=== PATIENT | female | born 1950 | race Caucasian/White ===

== ENCOUNTER 2024-01-16 13:15 | Outpatient (OUT) | payer MEDICARE, OTHER, SELFPAY ==
--- NOTE | 2024-01-16 | XR_ITS ---
[address] [address] Patient Name: CHLOE PICKENS MRN: [id number] date: 1950 Sex: F Assigned Patient Location: [facility] Current Patient Location: Accession/Order Number: [id number] Exam Date: 01/16/2024 13:45 Report Date: 01/18/2024 05:35 At the request of: ROULA ZARATE Procedure: XR knee RT 4V PROCEDURE: XR knee RT 4V HISTORY: Acute pain in right knee M25.561 COMPARISON: None. FINDINGS: BONES:Total knee replacement without evidence of hardware fracture or evidence of loosening. No bone fracture or dislocation. SOFT TISSUES:No visible soft tissue swelling. EFFUSION:None visible. OTHER: Negative. XR/XR knee RT 4V IMPRESSION: 1. Right knee replacement without evidence of hardware failure. 2. No acute bone abnormality. Electronically authenticated by: PAGE BLOOM Date: 01/18/2024 05:35
== END 2024-01-16 13:16 | disposition home or self-care (01) ==
LOC: RAD 13:22
PROVIDERS: PCP Internal Medicine; Visit Provider Physician Assistant
DX: M25.561 Pain in right knee (principal); Z96.651 Presence of right artificial knee joint
CPT/HCPCS: 73564

== ENCOUNTER 2024-05-31 16:11 | Inpatient (IN) | payer MEDICARE, OTHER, SELFPAY ==
[2024-05-31] VITALS (21 sets, daily range): BP systolic 105–148; BP diastolic 57–83; PULSE 90–124; TEMP 37.2–38.5; O2SAT 91–94; BMI 49.9; BMI 49.8
--- NOTE | 2024-05-31 16:21 | ECG_ITS ---
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 Baseline artifact present 9150 abnormal ECG Electronically Signed On 05-31-2024 20:23:33 EST by OSCAR PASTRANA
--- NOTE | 2024-05-31 16:23 | ED.GENADUL1 ---
HPI HPI - General Adult General Chief complaint: Weakness Stated complaint: WEAKNESS Time Seen by Provider: 05/31/24 16:22 Source: patient and EMR Mode of arrival: ambulance History of Present Illness HPI narrative: Patient is a 73-year-old female who presents to the emergency department for evaluation of difficulty urinating and not being able to stand up off the toilet. She called 911 because she was sitting on the toilet trying to urinate but was unable to get herself up. Patient was found by EMS to have a fever. At time of my initial evaluation, the patient is fixated on the staff trying to help her urinate. She denies chest pain, shortness of breath, falls or injuries. She has not had any other recent illness. She denies abdominal pain, she reports pressure and a sensation of needing to urinate. Related Data Home Medications ?Medication ?Instructions ?Recorded ?Confirmed allopurinol 100 mg tablet 100 mg PO DAILY 05/31/24 05/31/24 apixaban 5 mg tablet (Eliquis) 5 mg PO DAILY 05/31/24 05/31/24 biotin 2,500 mcg capsule 6,000 mcg PO Q12H 05/31/24 05/31/24 dulaglutide 1.5 mg/0.5 mL 1.5 mg subcut QWEEK 05/31/24 05/31/24 subcutaneous pen injector ([employer]) fenofibrate nanocrystallized 145 145 mg PO Q12H 05/31/24 05/31/24 mg tablet finerenone 20 mg tablet (Kerendia) 20 mg PO DAILY 05/31/24 05/31/24 fluticasone furoate 200 1 inh inhalation DAILY 05/31/24 05/31/24 mcg-vilanterol 25 mcg/dose inhalation powder (Breo Ellipta) furosemide 20 mg tablet 40 mg PO DAILY 05/31/24 05/31/24 insulin aspart U-100 100 unit/mL 50 unit subcut Q12H 05/31/24 05/31/24 (3 mL) subcutaneous pen (Novolog FlexPen U-100 Insulin aspart) insulin degludec 200 unit/mL (3 200 unit subcut Q12H 05/31/24 05/31/24 mL) subcutaneous pen (Tresiba FlexTouch U-200 insulin) loperamide 2 mg capsule 2 mg PO Q8H PRN loose stool 05/31/24 05/31/24 losartan 100 mg tablet 100 mg PO DAILY 05/31/24 05/31/24 omeprazole 20 mg capsule,delayed 20 mg PO DAILY 05/31/24 05/31/24 release semaglutide 1 mg/dose (4 mg/3 mL) 1 mg subcut .weekly 05/31/24 05/31/24 subcutaneous pen injector (Ozempic) topiramate 50 mg tablet 50 mg PO Q12H 05/31/24 05/31/24 tramadol 50 mg tablet 50 mg PO Q6H PRN pain 05/31/24 05/31/24 verapamil 240 mg 24 hr 240 mg PO DAILY 05/31/24 05/31/24 capsule,extended release vit C 250 mg-vit E 90 mg-zinc 40 1 tab PO BID 05/31/24 05/31/24 mg-copper 1 ib-[id number] capsule (PreserVision AREDS-2) Allergies Allergy/AdvReac Type Severity Reaction Status Date / Time doxycycline AdvReac Severe Nausea Verified 05/31/24 17:26 Opioid HPI Opioid Management Most Recent Opioid Data: No Data to Display Review of Systems ROS Constitutional Reports: fever; Denies: chills Ears, nose, mouth, and throat Denies: throat pain or nasal congestion Cardiovascular Denies: chest pain Respiratory Denies: shortness of breath or cough Gastrointestinal Denies: abdominal pain, nausea or vomiting Genitourinary Reports: urinary urgency Musculoskeletal Denies: back pain Integumentary/Breast Denies: rash Neurological Reports: weakness in extremities Hematologic/Lymphatic Denies: easy bruising or easy bleeding PFSH PFSH Social History Little interest or pleasure in doing things: not at all Feeling down, depressed, or hopeless: not at all Exam Narrative Exam Narrative: Gen.: Awake, alert, in no distress, morbidly obese female Head: Normocephalic, atraumatic ENT: Moist mucous membranes Respiratory: No respiratory distress, lungs clear bilaterally Cardio: Regular rate and rhythm Gastrointestinal: Abdomen is soft, nondistended and nontender to palpation Extremities: Moves extremities equally, no injuries noted Psych: Normal mood and affect Neuro: No focal neuro deficit Skin: Warm, dry, intact Constitutional Vital Signs, click to edit/add: Last Vital Signs Temp 100.4 F 05/31/24 16:51 Pulse 118 H 05/31/24 17:48 Resp 25 H 05/31/24 17:48 BP 148/57 H 05/31/24 17:48 Pulse Ox 93 L 05/31/24 17:48 O2 Del Method Room Air 05/31/24 16:51 Course Vital Signs Vital signs: Vital Signs Pulse Rate 116 H 05/31/24 16:29 Respiratory Rate 51 H 05/31/24 16:29 Temperature 100.4 F 05/31/24 16:51 Pulse Rate 118 H 05/31/24 17:48 Respiratory Rate 25 H 05/31/24 17:48 Blood Pressure 148/57 H 05/31/24 17:48 Pulse Oximetry 93 L 05/31/24 17:48 Oxygen Delivery Method Room Air 05/31/24 16:51 Medical Decision Making MDM Narrative Medical decision making narrative: Patient found to be tachycardic on arrival with fever. She was treated with Tylenol orally which she tolerated. Bladder scan was obtained initially at time of presentation to the ER showing 250 mL, Askew catheter was placed with over 450 mL drained. Urine specimen with no evidence of UTI. Patient is found to have bandemia, elevated lactic acid. Blood cultures are pending. She was given IV fluids and IV Rocephin. CT of the brain, CT of the abdomen and pelvis and chest x-ray reviewed by the radiologist with no evidence of acute process. At this time, patient meets SIRS criteria with no discernible source of infection. She is clinically much improved after IV fluids and Tylenol for fever. Reevaluated by attending physician and we will admit for generalized weakness, fever SHARED APC VISIT, PHYSICIAN ATTESTATION: [id number] I performed a substantive part of the MDM during the patient?s E/M visit. I personally evaluated and examined the patient. I personally made or approved the documented management plan and acknowledge its risk of complications. Medical Records Medical records reviewed: Yes I reviewed the patient's medical records Lab Data Lab results reviewed: Yes I reviewed the patient's lab results Labs: Lab Results 05/31/24 05/31/24 05/31/24 Range/Units 16:30 16:42 16:44 WBC 10.2 (4.0-11.0) 10^3/uL RBC 5.08 (4.20-5.40) 10^6/uL Hgb 15.0 (12.0-16.0) g/dL Hct 46.7 (36.0-48.0) % MCV 91.9 (81.0-99.0) fL MCH 29.5 (26.7-34.0) pg MCHC 32.1 (29.9-35.2) g/dL RDW 14.8 (11.0-15.0) % Plt Count 342 (150-450) 10^3/uL MPV 9.8 (9.5-13.5) fL Seg Neuts % (Manual) 82.0 H (43.0-75.0) Band Neutrophils % 11.0 H (0-5) % Lymphocytes % (Manual) 5.0 L (20.5-60.0) % Monocytes % (Manual) 1.0 L (1.7-12.0) % Eosinophils % (Manual) 1.0 (0.9-7.0) % Basophils % (Manual) 0.0 L (0.2-2.0) % Neutrophils # (Manual) 8.36 H (1.4-6.5) 10^3/uL Band Neutrophils # 1.1 H (0.0-0.3) 10^3/uL Lymphocytes # (Manual) 0.51 L (1.20-3.80) 10^3/uL Monocytes # (Manual) 0.10 L (0.30-0.80) 10^3/uL Eosinophils # (Manual) 0.10 (0.00-0.70) 10^3/uL Basophils # (Manual) 0.00 (0.00-0.10) 10^3/uL PT 10.8 (9.0-11.6) sec INR 1.02 VBG pH 7.296 L (7.330-7.430) VBG pCO2 42.0 (40.0-52.0) mmHg Sodium 137 (136-145) mmol/L Potassium 3.6 (3.5-5.1) mmol/L Chloride 100 (98-107) mmol/L Carbon Dioxide 23.6 (21.0-32.0) mmol/L Anion Gap 17.0 BUN 30.0 H (7.0-18.0) mg/dL Creatinine 1.85 H (0.55-1.02) mg/dL Est GFR ( Amer) 32 L (>=60 mL/min/1.73m^2) Est GFR (Non-Af Amer) 27 L (>=60 mL/min/1.73m^2) BUN/Creatinine Ratio 16.2 Glucose 319 H (74-106) mg/dL Lactate 5.9 H* (0.4-2.0) mmol/L Calcium 9.2 (8.5-10.1) mg/dL Total Bilirubin 0.5 (0.2-1.0) mg/dL AST 19 (15-37) U/L ALT 23 (14-59) U/L Alkaline Phosphatase 60 (46-116) U/L Troponin I High Sens 25.0 (4.0-51.3) pg/mL NT-Pro-B Natriuret Pep 93.0 (<=900.0) pg/mL Total Protein 7.6 (6.4-8.2) g/dL Albumin 3.4 (3.4-5.0) g/dL Globulin 4.2 g/dL Albumin/Globulin Ratio 0.8 TSH 1.150 (0.358-3.740) uIU/mL Urine Color Yellow (YELLOW) Urine Clarity Clear (CLEAR) Urine pH 6.0 (5.0-9.0) Ur Specific [place] 1.015 (1.005-1.025) Urine Protein Negative (NEG/TRACE) mg/dL Urine Glucose (UA) 100 A (NEGATIVE) mg/dL Urine Ketones Negative (NEGATIVE) mg/dL Urine Occult Blood Negative (NEGATIVE) Urine Nitrite Negative (NEGATIVE) Urine Bilirubin Negative (NEGATIVE) Urine Urobilinogen 1.0 (0.2-1.0) EU/dL Ur Leukocyte Esterase Negative (NEGATIVE) Urine RBC 0-2 (0-2) #/HPF Urine WBC 0-2 A (NONE SEEN) #/HPF Ur Squamous Epith Cells Rare (NONE/RARE) #/LPF Urine Crystals None seen (None Seen) #/HPF Urine Bacteria None seen (NONE SEEN) #/HPF Urine Casts None seen (NONE SEEN) #/LPF Urine Mucus None seen (NONE SEEN) Ur Culture Indicated? No Influenza Type A Ag Negative Influenza Type B Ag Negative SARS-CoV-2 Ag (CV2AG) Negative (NEGATIVE) 05/31/24 Range/Units 18:29 WBC (4.0-11.0) 10^3/uL RBC (4.20-5.40) 10^6/uL Hgb (12.0-16.0) g/dL Hct (36.0-48.0) % MCV (81.0-99.0) fL MCH (26.7-34.0) pg MCHC (29.9-35.2) g/dL RDW (11.0-15.0) % Plt Count (150-450) 10^3/uL MPV (9.5-13.5) fL Seg Neuts % (Manual) (43.0-75.0) Band Neutrophils % (0-5) % Lymphocytes % (Manual) (20.5-60.0) % Monocytes % (Manual) (1.7-12.0) % Eosinophils % (Manual) (0.9-7.0) % Basophils % (Manual) (0.2-2.0) % Neutrophils # (Manual) (1.4-6.5) 10^3/uL Band Neutrophils # (0.0-0.3) 10^3/uL Lymphocytes # (Manual) (1.20-3.80) 10^3/uL Monocytes # (Manual) (0.30-0.80) 10^3/uL Eosinophils # (Manual) (0.00-0.70) 10^3/uL Basophils # (Manual) (0.00-0.10) 10^3/uL PT (9.0-11.6) sec INR VBG pH (7.330-7.430) VBG pCO2 (40.0-52.0) mmHg Sodium (136-145) mmol/L Potassium (3.5-5.1) mmol/L Chloride (98-107) mmol/L Carbon Dioxide (21.0-32.0) mmol/L Anion Gap BUN (7.0-18.0) mg/dL Creatinine (0.55-1.02) mg/dL Est GFR ( Amer) (>=60 mL/min/1.73m^2) Est GFR (Non-Af Amer) (>=60 mL/min/1.73m^2) BUN/Creatinine Ratio Glucose (74-106) mg/dL Lactate 3.6 H* (0.4-2.0) mmol/L Calcium (8.5-10.1) mg/dL Total Bilirubin (0.2-1.0) mg/dL AST (15-37) U/L ALT (14-59) U/L Alkaline Phosphatase (46-116) U/L Troponin I High Sens (4.0-51.3) pg/mL NT-Pro-B Natriuret Pep (<=900.0) pg/mL Total Protein (6.4-8.2) g/dL Albumin (3.4-5.0) g/dL Globulin g/dL Albumin/Globulin Ratio TSH (0.358-3.740) uIU/mL Urine Color (YELLOW) Urine Clarity (CLEAR) Urine pH (5.0-9.0) Ur Specific [place] (1.005-1.025) Urine Protein (NEG/TRACE) mg/dL Urine Glucose (UA) (NEGATIVE) mg/dL Urine Ketones (NEGATIVE) mg/dL Urine Occult Blood (NEGATIVE) Urine Nitrite (NEGATIVE) Urine Bilirubin (NEGATIVE) Urine Urobilinogen (0.2-1.0) EU/dL Ur Leukocyte Esterase (NEGATIVE) Urine RBC (0-2) #/HPF Urine WBC (NONE SEEN) #/HPF Ur Squamous Epith Cells (NONE/RARE) #/LPF Urine Crystals (None Seen) #/HPF Urine Bacteria (NONE SEEN) #/HPF Urine Casts (NONE SEEN) #/LPF Urine Mucus (NONE SEEN) Ur Culture Indicated? Influenza Type A Ag Influenza Type B Ag SARS-CoV-2 Ag (CV2AG) (NEGATIVE) Imaging Data Chest x-ray: Attestation: I have reviewed the pertinent imaging results. Radiologist's impression: ITS Impressions Abdomen/Pelvis CT 05/31/24 17:47 Impression: 1. No evidence of acute abdominal or pelvic process. 2. Left renal nonobstructive stones measuring up to 1 cm. No hydronephrosis. 3. Askew catheter in the bladder. Air is seen in the bladder, most likely iatrogenic. Electronically authenticated by: KIAN PETERS Date: 05/31/2024 19:22 Chest X-Ray 05/31/24 17:47 IMPRESSION: Low lung volumes with pulmonary vascular congestion/edema. Possible small bilateral pleural effusions. Electronically authenticated by: GURINDER PRITCHETT Date: 05/31/2024 18:[address] 05/31/24 17:47 IMPRESSION: 1. No acute intracranial process. 2. 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 Electronically authenticated by: GURINDER PRITCHETT Date: 05/31/2024 18:34 ECG Data Attestation: I personally reviewed and interpreted this ECG as follows: (Sinus tachycardia at a rate of 113, occasional PVCs, significant artifact noted due to the patient's tremors. No obvious acute ST elevation EKG reviewed by attending physician) Discharge Plan Discharge Chief Complaint: Weakness Patient Disposition: Admitted as Observation Time of Disposition Decision: 19:36 Prescriptions / Home Meds: No Action allopurinol 100 mg tablet 100 mg PO DAILY Kerendia 20 mg tablet 20 mg PO DAILY losartan 100 mg tablet 100 mg PO DAILY omeprazole 20 mg capsule,delayed release(DR/EC) 20 mg PO DAILY Ozempic 1 mg/dose (4 mg/3 mL) pen injector 1 mg SUBCUT .weekly topiramate 50 mg tablet 50 mg PO Q12H tramadol 50 mg tablet 50 mg PO Q6H PRN (Reason: pain) verapamil 240 mg capsule,ext rel. pellets 24 hr 240 mg PO DAILY Eliquis 5 mg tablet 5 mg PO DAILY insulin aspart U-100 [Novolog FlexPen U-100 Insulin] 100 unit/mL (3 mL) insulin pen 50 unit SUBCUT Q12H insulin degludec [Tresiba FlexTouch U-200] 200 unit/mL (3 mL) insulin pen 200 unit SUBCUT Q12H fenofibrate nanocrystallized 145 mg tablet 145 mg PO Q12H furosemide 20 mg tablet 40 mg PO DAILY loperamide 2 mg capsule 2 mg PO Q8H PRN (Reason: loose stool) biotin 2,500 mcg capsule 6,000 mcg PO Q12H fluticasone furoate-vilanterol [Breo Ellipta] 200-25 mcg/dose blister with device 1 inh inhalation DAILY PreserVision AREDS-2 250-90-40-1 mg capsule 1 tab PO BID Trulicity 1.5 mg/0.5 mL pen injector 1.5 mg subcut QWEEK Print Language: Filipino Referrals: IVETH OH [Primary Care Provider] - 1 week
--- NOTE | 2024-05-31 16:47 | ECG_ITS ---
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
[2024-05-31 16:52] LABS: Hematocrit 46.7 % (36.0-48.0); Mean Corpuscular HGB Conc 32.1 g/dL (29.9-35.2); Mean Corpuscular Hemoglobin 29.5 pg (26.7-34.0); Mean Corpuscular Volume 91.9 fL (81.0-99.0); Mean Platelet Volume 9.8 fL (9.5-13.5); Platelet Count 342 10^3/uL (150-450); Red Blood Count 5.08 10^6/uL (4.20-5.40); Red Cell Distribution Width 14.8 % (11.0-15.0); White Blood Count 10.2 10^3/uL (4.0-11.0); pH VBG 7.296 (7.330-7.430)
[2024-05-31 16:55] LABS: Bilirubin Urine NEGATIVE (NEGATIVE); Blood Urine NEGATIVE (NEGATIVE); Clarity Urine CLEAR (CLEAR); Color Urine YELLOW (YELLOW); Glucose Urine UA 100 mg/dL (NEGATIVE); Ketones Urine NEGATIVE (NEGATIVE); Leukocyte Esterase Urine NEGATIVE (NEGATIVE); Nitrite Urine NEGATIVE (NEGATIVE); Protein Urine NEGATIVE (NEG/TRACE); Specific Gravity Urine 1.015 (1.005-1.025)
[2024-05-31 17:01] LABS: Bacteria Urine NONE SEEN #/HPF (NONE SEEN); Cast Seen? NONE SEEN #/LPF (NONE SEEN); Crystals Seen? None Seen #/HPF (None Seen); Mucus Urine NONE SEEN (NONE SEEN); RBC Urine 0-2 #/HPF (0-2); Squamous Epithelial Cell Urine RARE #/LPF (NONE/RARE); Urine Culture Indicated NO; WBC Urine 0-2 #/HPF (NONE SEEN)
[2024-05-31 17:06] LABS: INR 1.02; Prothrombin Time 10.8 sec (9.0-11.6)
[2024-05-31] MEDS: ACETAMINOPHEN 500 MG TABLET 1000 MG PO (17:06)
[2024-05-31] MEDS: 0.9 % SODIUM CHLORIDE 1,000 ML 1000 ML IV (17:06)
[2024-05-31 17:07] LABS: Influenza Virus A Antigen Negative; Influenza Virus B Antigen Negative; Internal Control Within Normal Limits
[2024-05-31 17:08] LABS: Internal Control Within Normal Limits; SARS-CoV-2 Ag NEGATIVE (NEGATIVE)
[2024-05-31 17:08] LABS: Alanine Aminotransferase 23 U/L (14-59); Albumin Globulin Ratio 0.8; Albumin Level 3.4 g/dL (3.4-5.0); Alkaline Phosphatase 60 U/L (46-116); Aspartate Amino Transferase 19 U/L (15-37); BUN Creatinine Ratio 16.2; Bilirubin Total 0.5 mg/dL (0.2-1.0); Calcium 9.2 mg/dL (8.5-10.1); Carbon Dioxide 23.6 mmol/L (21.0-32.0); Chloride 100 mmol/L (98-107); Estimated GFR (African America 32 (>=60 mL/min/1.73m^2); Estimated GFR (Non-African Ame 27 (>=60 mL/min/1.73m^2); Globulin 4.2 g/dL; Glucose 319 mg/dL (74-106); Potassium 3.6 mmol/L (3.5-5.1); Sodium 137 mmol/L (136-145); Total Protein 7.6 g/dL (6.4-8.2)
[2024-05-31 17:15] LABS: Band Neutrophils Absolute 1.1 10^3/uL (0.0-0.3); Lymphocytes Absolute Manual 0.51 10^3/uL (1.20-3.80); Segmented Neut Absolute Manual 8.36 10^3/uL (1.4-6.5)
[2024-05-31 17:19] LABS: Lactate/Lactic Acid 5.9 mmol/L (0.4-2.0)
--- NOTE | 2024-05-31 17:47 | XR_ITS ---
The [address] [address] Patient Name: CHLOE PICKENS MRN: [id number] date: 1950 Sex: F Assigned Patient Location: ER Current Patient Location: ER Accession/Order Number: [id number] Exam Date: 05/31/2024 17:27 Report Date: 05/31/2024 18:35 At the request of: NILA VELA Procedure: XR chest 1V EXAM: XR chest 1V HISTORY: Weakness COMPARISON: None TECHNIQUE: AP portable upright view of the chest FINDINGS: Low lung volumes with pulmonary vascular congestion/edema. Possible small bilateral pleural effusions. Enlarged cardiomediastinal silhouette. No definite pneumothorax. No gross acute osseous abnormalities. XR/XR chest 1V IMPRESSION: Low lung volumes with pulmonary vascular congestion/edema. Possible small bilateral pleural effusions. Electronically authenticated by: GURINDER PRITCHETT Date: 05/31/2024 18:35
--- NOTE | 2024-05-31 17:47 | CT_ITS ---
The [address] [address] Patient Name: CHLOE PICKENS MRN: [id number] date: 1950 Sex: F Assigned Patient Location: ER Current Patient Location: ER Accession/Order Number: [id number] Exam Date: 05/31/2024 17:27 Report Date: 05/31/2024 18:34 At the request of: NILA VELA Procedure: CT head/brain wo con EXAM: CT head/brain wo con CLINICAL INDICATION: Weakness COMPARISON: None TECHNIQUE: Axial CT images of the brain were obtained without contrast. Coronal and sagittal reformats were obtained. Dose reduction techniques were achieved by using automated exposure control and/or adjustment of mA and/or kV according to patient size and/or use of iterative reconstruction technique. FINDINGS: No intracranial hemorrhage, extra-axial fluid collection, hydrocephalus, midline shift, or acute large vessel territory infarction. No other mass effect. Patent basal cisterns. Patchy periventricular and subcortical hypoattenuation is likely on the basis of chronic microvascular angiopathic changes. Moderate symmetric global volume loss with bilateral frontal lobe predominance. Commensurate ventricular system caliber prominence. 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 No calvarial fracture. Normal soft tissues. Paranasal sinuses and mastoid air cells are well-aerated. CT/CT head/brain wo con IMPRESSION: 1. No acute intracranial process. 2. 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 Electronically authenticated by: GURINDER PRITCHETT Date: 05/31/2024 18:34
--- NOTE | 2024-05-31 17:47 | CT_ITS ---
[address] [address] Patient Name: CHLOE PICKENS MRN: [id number] date: 1950 Sex: F Assigned Patient Location: ER Current Patient Location: Accession/Order Number: [id number] Exam Date: 05/31/2024 17:27 Report Date: 05/31/2024 19:22 At the request of: NILA VELA Procedure: CT abdomen pelvis wo con Indication: Weakness. Difficulty urinating. Comparison: None Procedure: Axial images were made from the diaphragms through the symphysis pubis. No oral contrast was given prior to scanning. No Intravenous contrast was given. Dose reduction techniques were achieved by using automated exposure control and/or adjustment of mA and/or kV according to patient size and/or use of iterative reconstruction technique. Findings: Liver/Biliary System: No liver masses are seen. No intra or extrahepatic biliary dilatation. Status postcholecystectomy. Pancreas/Spleen: No evidence of acute pancreatitis. Pancreatic duct is not dilated. No splenomegaly. Kidneys/Adrenals: 3 left renal nonobstructive stones measuring 4 mm, 7 mm and 10 mm. No right renal stones. No ureteral stones. No hydronephrosis or hydroureter bilaterally. No adrenal nodules. Aorta/Vessels: No evidence of aortic aneurysm. Evaluation of vessels is limited due to lack of IV contrast. Bowel/Fluid/Nodes: No bowel dilatation or bowel wall thickening. No evidence of bowel obstruction. Colonic diverticulosis with no evidence of diverticulitis. Appendix was not clearly seen, however no secondary signs of appendicitis present. No ascites or fluid collections. No adenopathy. Lung bases: Clear. Other findings: No aggressive osseous lesions are seen. Pelvis: Askew catheter in the bladder. Air is seen in the bladder, most likely iatrogenic. Uterus and adnexa grossly unremarkable. No pelvic masses or adenopathy. No free fluid seen in the pelvis. Other Findings: No aggressive osseous lesions are seen. 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 CT/CT abdomen pelvis wo con Impression: 1. No evidence of acute abdominal or pelvic process. 2. Left renal nonobstructive stones measuring up to 1 cm. No hydronephrosis. 3. Askew catheter in the bladder. Air is seen in the bladder, most likely iatrogenic. Electronically authenticated by: KIAN PETERS Date: 05/31/2024 19:22
[2024-05-31] MEDS: CEFTRIAXONE 2,000 MG in 0.9 % SODIUM CHLORIDE 100 ML 200 MG IV (18:43)
[2024-05-31 18:56] LABS: Lactate/Lactic Acid 3.6 mmol/L (0.4-2.0)
[2024-05-31 19:47] LABS: Internal Control Within Normal Limits; Respiratory Syncytial Virus Not Detected (NOT DETECTE)
--- OUTSIDE RECORDS SUMMARY | 2024-05-31 20:27 | XMS_ITS | CCD ---
Author Organization [facility] Inform ion [facility] Care Team Providers Care Assembler Cards And Announcements Name Role Phone RAJESH MERCER Unavailable Unavailable SERGIO, DILAN Unavailable Unavailable RAJESH MERCER Unavailable Unavailable SERGIO, DILAN Unavailable Unavailable None, No PCP Unavailable Unavailable Rdz, Reyna Unavailable Unavailable GALLOWAY, DR ANTHONY Admitting Unavailable LAVERNE, DR ANTHONY Attending Unavailable DR RAJESH MERCER Primary Care Unavailable Sergio, Dilan Unavailable Qamar Rowan Unavailable RACHEL Mercer Primary Care Provider MD Dilan Nguyễn Attending Provider RACHEL Mercer Primary Care Provider [phone] MD Dilan Nguyễn Attending Provider [phone] RACHEL Mercer Primary Care Provider MD Dilan Nguyễn Attending Provider Dari Carlson Unavailable Unavailable Rajesh Mercer II Primary Care Unavail able Rajesh Mercer II Primary Care Unavail able Honda, Kord Attending Unavailable Rdz, Reyna Referring Unavailable Rajesh Mercer II Primary Care Unavail able Honda, Kord Attending Unavailable Rdz, Reyna Referring Unavailable Rajesh Mercer II Primary Care Unavail able Self, Referral Referring Unavailable Rdz, Reyna Attending Unavailable Rajesh Mercer II Primary Care Unavail able Rdz, Reyna Attending Unavailable UNKNOWN, UNKNOWN Referring Unavailable Rdz, Reyna Attending Unavailable UNKNOWN, UNKNOWN Referring Unavailable Rajesh Mercer II Primary Care Unavail able Rajesh Mercer MD Primary Care Provider Rajesh Mercer MD Primary Care Provider RACHEL Mercer Primary Care Provider MD Dilan Nguyễn Attending Provider Rajesh Mercer MD Primary Care Provider REYNA RDZ Attending Unavailable RAJESH MERCER Primary Care Unavailable REYNA RDZ Attending Unavailable RAJESH MERCER Primary Care Unavailable RACHEL Mercer Primary Care Provider MD Dilan Nguyễn Attending Provider Rajesh Mercer MD Primary Care Provider Rajesh Mercer MD Unavailable MAGGI PERALTA Attending Unavailable RAJESH MERCER B Referring Unavailable RAJESH MERCER B Primary Care Unavailable MAGGI PERALTA Attending Unavailable RAJESH MERCER B Referring Unavailable RAJESH MERCER B Primary Care Unavailable GINA BUSTILLO Attending Unavailable RAJESH MERCER B Referring Unavailable RAJESH MERCER B Primary Care Unavailable Sergio, Dilan Admitting Unavailable Ruslan Rajesh Primary Care Unavailable Sergio, Dilan Attending Unavailable Sergio, Dilan Admitting Unavailable Rudy Mercerel Primary Care Unavailable Sergio, Dilan Attending Unavailable Sergio, Dilan Admitting Unavailable Rudy Mercerel Primary Care Unavailable Sergio, Dilan Attending Unavailable Rajesh Mercer Primary Care Unavailable Sergio, Dilan Admitting Unavailable Sergio, Dilan Attending Unavailable KAILEE NOVA Attending Unavailable KAILEE NOVA Attending Unavailable KAILEE NOVA H Attending Unavailable KAILEE NOVA H Attending Unavailable CAT NOVAANDRA H Attending Unavailable GINA ZARATE Attending Unavailable CAT NOVAANDRA H Attending Unavailable THOMAS, KAILEE H Attending Unavailable CAT NOVAANDRA H Attending Unavailable RAJESH MERCER Attending Unavailable CAT NOVAANDRA H Attending Unavailable Aileen Jr, Dez T Attending Unavailable Aileen Jr, Dez T Referring Unavailable Aileen Jr, Dez T Attending Unavailable Aileen Jr, Dez T Referring Unavailable Aileen Jr, Dez T Attending Unavailable Aileen Jr, Dez T Referring Unavailable Allergies Allergy Classification Reported Allergen(s) Allergy Type Date of Onset Reaction(s) Facility Doxycycline (2 sources) Doxycycline; Translations: [doxycycline] Drug Allergy [facility] Work Phone: (20 sources) Doxycycline; Translations: [doxycycline] Drug Allergy 0 Rash, Unknown [facility] (1 source) Propensity to adverse reactions to drug 0 [facility] (1 source) Propensity to adverse reactions to drug 0 [facility] (1 source) Doxycycline Drug Allergy 7 [facility] Repository (17 sources) cat and dog dander as a youth Propensity to adverse reactions Unknown [place] Other (18 sources) Ragweed Propensity to adverse reactions Unknown [place] Other (17 sources) dust as a youth Propensity to adverse reactions Unknown [place] Other (17 sources) chocolate as a youth Propensity to adverse reactions Unknown [place] Other (1 source) Propensity to adverse reactions to drug 0 [facility] (1 source) Propensity to adverse reactions to drug 0 [facility] (2 sources) Chocolate; Translations: [chocolate flavor] Drug allergy 3 Unknown [facility] Repository (1 source) House dust mite Drug allergy Unknown [place] Other (4 sources) house dust allergenic extract; Translations: [house dust] Drug Allergy 4 [facility] (4 sources) Ragweed pollen; Translations: [ragweed pollen] Allergy to substance 4 [facility] (18 sources) Lanolin Drug Allergy 3 Unknown [facility] (1 source) Doxycycline Drug Allergy 4 [facility] Repository (1 source) Unable to Assess Drug allergy (disorder) [facility] Repository Medications Current Medications Medication Drug Class(es) Dates Sig (Normalized) Sig (Original) acetaminophen 500 mg oral tablet (9 sources) Start: 07-21-2023 take 2 tablets by mouth every six hours as needed Acetaminophen Active 2 TAB PO Every 6 hours July 21, 2023 12:00am FreeTextSi tablet as needed Orally every 6 hrs; Note: Source Status: Taking; Provider: Harpal Foote ( ) take 2 tablets by mo uth every six hours as needed Acetaminophen 500 MG 2 tablet as needed Orally every 6 hrs Active albuterol 0.83 mg/ml inhalation solution (20 sources) beta2-Adrenergic Agonist Start: 08-26-2023 take 2.5 mg by inhalation four times daily Albuterol Sulfate Active 2.5 MG INHALATION Four times daily August 26, 2023 10:19am Start: 07-21-2023 take 1 puff(s) by in halation every four hours Albuterol Sulfate (Ventolin Hfa) 90 mcg/actuation HFA aerosol inhaler Active 2 PUFF INHALATION Every 4 hours July 21, 2023 12:00am Start: 07-21-2023 End: 08-26-2023 take 1 [IU] by inhalation four times daily Albuterol Sulfate Discontinued 1 UNIT INHALATION Four times daily July 21, 2023 12:00am August 26, 2023 10:19am FreeTextSi unit dose Inhalation four times a day DX J44.9 COPD; Note: Source Status: Takingprn; Refills: 11; Provider: Harpal Wells albuterol HFA (V entolin HFA) 90 mcg/act inhaler Ventolin HFA 90 mcg/actuation aerosol inhaler as needed Active albuterol (PROVE NTIL HFA;VENTOLIN HFA) 90 mcg/actuation inhaler Ventolin HFA 90 mcg/actuation aerosol inhaler as needed Active albuterol 2.5 mg /3 mL (0.083 %) nebulizer solution Take by nebulization. Active take 1-2 puff(s) by inhalation every four hours albuterol (Ventolin HFA) 90 mcg/actuation inhaler Inhale 1-2 puffs every 4 hours if needed. Active Albuterol Sulfat e (2.5 MG/3ML) 0.083% 1 unit dose Inhalation four times a day DX J44.9 COPD for 30 days prn Active take 2 puff(s) by in halation every four hours as needed Ventolin HFA 108 (90 Base) MCG/ACT 2 puffs as needed Inhalation every 4 hrs prn Active take 1-2 puff(s) by inhalation every four to six hours as needed Ventolin HFA 108 (90 Base) MCG/ACT Inhalation Aerosol Solution INHALE 1 TO 2 PUFFS EVERY 4 TO 6 HOURS NEEDED. Quantity: 0 Refills: 0 Ordered: 27-Nov-2020 DO Active allopurinol 100 mg oral tablet (20 sources) Xanthine Oxidase Inhibitor Start: 08-15-2021 allopurinol (Zylopri m) 100 MG tablet Indications: Mixed hyperlipidemia (CMS/HCC) TAKE 1 TABLET EVERY DAY 90 tablet 3 04/12/2024 Active apixaban 5 mg oral tablet (20 sources) Factor Xa Inhibitor Start: 05-03-2019 Eliquis 5 MG tablet Indications: CKD stage 4 due to type 2 diabetes mellitus (CMS/HCC) TAKE 1 TABLET TWICE DAILY 180 tablet 3 07/29/2023 Active take 2 tablets by mouth twice da ameya apixaban (ELIQUIS) 5 mg tablet Eliquis 5 mg tablet Take 2 tablets twice a day by oral route. Active ascorbic acid 226 mg / beta carotene [id number] unt / cuprous oxide 0.8 mg / dl-alpha tocopheryl acetate 200 unt / zinc oxide 34.8 mg oral capsule (18 sources) Vitamin C Multiple Vitamins-Minerals (PreserVision AREDS) capsule Active ascorbic acid 113 mg / copper gluconate 0.4 mg / docosahexaenoic acid 87.5 mg / eicosapentaenoic acid 163 mg / lutein 2.5 mg / tocopherol acetate 100 unt / zeaxanthin 0.5 mg / zinc oxide 17.4 mg oral capsule (18 sources) Vitamin C PreserVision ARE DS 2 - as directed Orally TWICE A DAY Active azithromycin 250 mg oral tablet (2 sources) Macrolide Antimicrobial Start: 020 [id number] Medication azithromycin 250 mg tablet azithromycin 250 mg tablet 250 mg 09/29/2019 Active (Outside) biotin 5 mg sublingual tablet (20 sources) Start: 024 take 5000 ug under the tongue once daily Biotin Active 5000 MCG SUBLINGUAL Daily July 21, 2023 12:00am take 2 tablets by mouth in the m orning biotin 2.5 MG capsule Take 2 tablets by mouth in the morning. Active take 1 tablet by mouth twice arturo ly biotin 10 mg tablet Take 1 tablet (10 mg) by mouth 2 times a day. Active take 1 capsule by mouth twice da ameya Biotin 6000 1 capsule Orally bid Active Biotin TABS 6000 1 CAPSULE ORALLY bid Quantity: 0 Refills: 0 Ordered: 27-Nov-2020 DO Active Blood Glucose Monitoring Sup pl (OneTouch Verio Flex System) w/Device kit (18 sources) Start: 12-26-2022 Blood Glucose Monitoring Suppl (OneTouch Verio Flex System) w/Device kit USE TO CHECK GLUCOSE 4 TIMES DAILY 12/26/2022 Active blood-glucose meter (ONETOUC H VERIO METER) [facility] (8 sources) Start: 12-23-2022 blood-glucose meter (ONETOUCH VERIO METER) [facility] [place] Indications: Type 2 diabetes mellitus with hypoglycemia without coma, without long-term current use of insulin [place] Use daily 4 times a day DX:E11.65 1 each 12/23/2022 Active Start: 12-23-2022 blood-glucose meter (ONETOUCH VERIO METER) [facility] [place] Indications: Type 2 diabetes mellitus with hypoglycemia without coma, without long-term current use of insulin [place] Use daily 4 times a day DX:E11.65 1 each 0 12/23/2022 Active Breo Ellipta 200-25 MCG/INH (8 sources) take 1 puff(s) by inhalation once daily Breo Ellipta 200-25 MCG/INH 1 puff Inhalation Once a day Active carvedilol 12.5 mg oral tablet (20 sources) alpha-Adrenergic Shelly, beta-Adrenergic Shelly Start: 04-17-2021 take 12.5 mg by mouth twice daily Carvedilol Active 12.5 MG PO Twice daily July 21, 2023 12:00am take 2 tablets by mo uth every twelve hours Carvedilol 12.5 MG 2 tablet Orally Twice a day for 90 day(s) Not-Taking cholecalciferol, vitamin D3, (VITAMIN D3 ORAL) (8 sources) cholecalciferol, vitamin D3, (VITAMIN D3 ORAL) Take by mouth. Active cholecalciferol, vitamin D3, (VITAMIN D3 ORAL) Take by mouth. 0 Active CPAP Machine (18 sources) CPAP Machine Act reji 0.5 ml dulaglutide 3 mg/ml auto-injector (20 sources) GLP-1 Receptor Agonist Start: 06-16-2020 dulaglutide (Trulicity) 1.5 mg/0.5 mL pen injector injection Inject under the skin. 06/16/2020 Active Start: 01-17-2020 [id number] Medica tion dulaglutide 1.5 mg/0.5 mL subcutaneous pen injector Trulicity 1.5 mg/0.5 mL subcutaneous pen injector 1.5 mg/0.5 mL 10/07/2020 Active (Outside) dulaglutide (Rik licity) 0.75 mg/0.5 mL pen injector Trulicity 0.75 MG/0.5ML Subcutaneous Solution Pen-injector Refills: 0 Active Active Trulicity 1.5 MG /0.5ML as directed Subcutaneous ONCE A WEEK Active Trulicity 0.75 M G/0.5ML Subcutaneous Solution Pen-injector Quantity: 0 Refills: 0 Ordered: 27-Nov-2020 DO Active dulaglutide (TRULICITY) 3 mg/0.5 mL pen injector (5 sources) Start: 07-28-2023 dulaglutide (T RULICITY) 3 mg/0.5 mL pen injector Indications: Type 2 diabetes mellitus with hyperglycemia, with long-term current use of insulin ([facility]) inject 1 syringe subcutaneously once a week 4 mL 0 07/28/2023 Active Start: 08-19-2022 End: 07-28-2023 dulaglutide (TRULICITY) 3 mg /0.5 mL pen injector Indications: Type 2 diabetes mellitus with hyperglycemia, with long-term current use of insulin ([facility]) 3mg weekly 2 mL 11 08/19/2022 07/28/2023 Discontinued Start: 08-19-2022 dulaglutide (T RULICITY) 3 mg/0.5 mL pen injector Indications: Type 2 diabetes mellitus with hyperglycemia, with long-term current use of insulin ([facility]) 3mg weekly 2 mL 11 08/19/2022 Active fenofibrate 145 mg oral tablet (20 sources) Peroxisome Proliferator Receptor alpha Agonist Start: 05-12-2023 fenofibrate (Tricor) 145 MG tablet Indications: Mixed hyperlipidemia (CMS/HCC) TAKE 1 TABLET EVERY DAY WITH FOOD 100 tablet 3 05/12/2023 Active Start: 05-03-2019 take 1 tablet by dinora th twice daily Fenofibrate Nanocrystallized Active 1 TAB PO Twice daily July 21, 2023 12:00am FreeTextSi tablet Oral TWICE A DAY; Note: Source Status: Taking; Refills: 0; Provider: Harpal Foote ( ) choline fenofibr ate (TRILIPIX) 135 mg capsule fenofibric acid (choline) 135 mg capsule,delayed release Active Fenofibrate 145 MG Oral Tablet Quantity: 0 Refills: 0 Ordered: 27-Nov-2020 DO Active Finerenone (7 sources) Start: 07-29-2023 take 1 tablet by dinora th once daily Finerenone (Kerendia) 20 mg tablet Active 0 .ROUTE .COMPLEX 90 July 29, 2023 5:41pm TAKE 1 TABLET BY MOUTH EVERY DAY Start: 07-21-2023 End: 07-29-2023 take 1 tablet by mouth once daily Finerenone Discontinued 1 TAB PO Daily July 21, 2023 12:00am July 29, 2023 5:42pm FreeTextSi tablet Orally Once a day; Note: Source Status: Taking; Refills: 1; Qty: 90 Tablet; Provider: Sergio Kong ( ) Start: 07-21-2023 take 1 tablet by dinora th once daily Finerenone Active 1 TAB PO Daily July 21, 2023 12:00am FreeTextSi tablet Orally Once a day; Note: Source Status: Taking; Refills: 1; Qty: 90 Tablet; Provider: Sergio Kong ( ) Start: 07-21-2023 take 20 mg by mouth once daily Finerenone Active 20 MG PO Daily July 21, 2023 12:00am Finerenone 10 MG (3 sources) Start: 02-21-2022 take 1 tablet by mouth once daily Finerenone 10 MG 1 tablet Orally Once a day for 90 day(s) Feb, Active Finerenone 20 MG (8 sources) take 1 tablet by mouth once daily Finerenone 20 MG 1 tablet Orally Once a day for 90 days Active finerenone 20 MG Oral Tablet [Kerendia] (9 sources) take 1 tablet by mouth every twenty-four hours Kerendia 20 MG 1 tablet Orally Once a day for 90 days Active take 1 tablet by mouth once skylar y Kerendia 20 MG TAKE 1 TABLET BY MOUTH EVERY DAY for 30 Active take 1 tablet by dinora th every twenty-four hours Kerendia 20 MG 1 tablet Orally Once a da y for 30 days Active fluticasone propionate 0.05 mg/actuat metered dose nasal spray (8 sources) Corticosteroid Start: 07-21-2023 take 1-2 spray(s) nasal route once daily Fluticasone Propionate Active 1-2 SPRAY INTRANASAL Daily July 21, 2023 12:00am FreeTextSi-2 sprays in each nostril Nasally Once a day; Note: Source Status: Taking; Refills: 11; Provider: Harpal Wells Start: 09-03-2022 take 1-2 spray(s) na gracie route once daily Fluticasone Propionate 50 MCG/ACT 1-2 sprays in each nostril Nasally Once a day for 30 days September, Active Fluticasone Furoate-Vilanterol (20 sources) Corticosteroid, beta2-Adrenergic Agonist Start: 07-21-2023 take 1 puff(s) by inhalation once daily Fluticasone Furoate-Vilanterol (Breo Ellipta) 200-25 mcg/dose blister with device Active 1 PUFF INHALATION Daily July 21, 2023 12:00am FreeTextSi puff Inhalation Once a day; Note: Source Status: Taking; Provider: Harpal Wells Start: 06-25-2019 [id number] Medica tion fluticasone furoate 200 mcg-vilanterol 25 mcg/dose inhalation powder Breo Ellipta 200 mcg-25 mcg/dose powder for inhalation 200-25 mcg/dose 06/25/2019 Active (Outside) take 1 puff(s) by in halation in the morning Fluticasone Furoate-Vilanterol (Breo Ellipta) 200-25 MCG/ACT aerosol powder Inhale 1 puff in the morning. Active fluticasone/darren nterol (BREO ELLIPTA INHL) Inhale. Active fluticasone/darren nterol (BREO ELLIPTA INHL) Inhale. 0 Active take 1 puff(s) by in halation once daily Breo Ellipta 200-25 MCG/ACT 1 puff Inhalation Once a day Active furosemide 20 mg oral tablet (20 sources) Loop Diuretic Start: 07-21-2023 take 40 mg by mouth once daily Furosemide Active 40 MG PO Daily July 21, 2023 12:00am Start: 11-11-2019 [id number] Medicat ion furosemide 20 mg tablet furosemide 20 mg tablet 20 mg 01/09/2021 Active (Outside) take 2 tablets by mo ut in the morning furosemide (Lasix) 20 MG tablet Take 2 tablets by mouth in the morning. Active Furosemide 40 MG TAKE 1 TABLET EVERY DAY Orally Once a day Active hydrALAZINE hydrochloride 25 mg oral tablet (8 sources) Arteriolar Vasodilator Start: 07-04-2022 take 2 tablets by mouth in the morning, then take 2 tablets by mouth at bedtime hydrALAZINE (APRESOLINE) 25 mg tablet Indications: Primary hypertension Take 2 tablets (50 mg total) by mouth in the morning and 2 tablets (50 mg total) before bedtime. 07/04/2022 Active Insulin Aspart U-100 (Novolog Flexpen U-100 Insulin) 100 unit/mL (3 mL) insulin pen (3 sources) Start: 07-21-2023 Insulin Aspart U-100 (Novolog Flexpen U-100 Insulin) 100 unit/mL (3 mL) insulin pen Active 50 UNIT SUBCUT Twice daily July 21, 2023 12:00am 3 ml insulin aspart, human 100 unt/ml pen injector (20 sources) Insulin Analog Start: 08-11-2023 inject 100 [IU] by subcutaneous injection once daily NovoLOG Flexpen U-100 Insulin 100 unit/mL (3 mL) insulin pen Indications: Type 2 diabetes mellitus with hyperglycemia, with long-term current use of insulin [place] INJECT UNDER THE SKIN UP TO 100 UNITS DAILY DIRECTED. DISCARD PEN 28 DAYS AFTER OPENING. 90 mL 3 08/11/2023 Active Start: 07-16-2022 NovoLOG FLEXPE N 100 UNIT/ML pen INJECT SUBCUTANEOUSLY UP TO 150 UNITS EVERY DAY DIRECTED. (DISCARD PEN 28 DAYS AFTER OPENING) 07/16/2022 Active Start: 07-16-2022 NovoLOG FlexPe n U-100 Insulin 100 unit/mL (3 mL) insulin pen Indications: Type 2 diabetes mellitus with hyperglycemia, with long-term current use of insulin [place] Uses up to 100 units daily 90 mL 3 07/16/2022 Active Start: 12-19-2019 [id number] Medica tion insulin aspart (U-100) 100 unit/mL (3 mL) subcutaneous pen Novolog Flexpen U-100 Insulin aspart 100 unit/mL (3 mL) subcutaneous 100 unit/mL (3 mL) 07/15/2021 Active (Outside) NovoLOG FlexPen 100 UNIT/ML 50 UNITS Subcutaneous TWICE A DAY Active 3 ml insulin degludec 200 unt/ml pen injector (20 sources) Insulin Analog Start: 11-10-2023 insulin deglud ec (TRESIBA FLEXTOUCH U-200) 200 unit/mL (3 mL) insulin pen Indications: Type 2 diabetes mellitus with hyperglycemia, with long-term current use of insulin [place] INJECT UP TO 150 UNITS UNDER THE SKIN EVERY DAY (DISCARD PEN 56 DAYS AFTER OPENING) 72 mL 3 11/10/2023 Active Start: 07-04-2022 insulin deglud ec (TRESIBA FLEXTOUCH U-200) 200 unit/mL (3 mL) insulin pen Indications: Type 2 diabetes mellitus with hyperglycemia, with long-term current use of insulin [place] Inject up to 150 units a day under the skin 72 mL 3 07/04/2022 Active Start: 01-25-2020 [id number] Medica tion insulin degludec (U-200) 200 unit/mL (3 mL) subcutaneous pen Tresiba FlexTouch U-200 insulin 200 unit/mL (3 mL) subcutaneous pen 200 unit/mL (3 mL) 01/25/2020 Active (Outside) inject 70 [IU] by yeboah bcutaneous injection twice daily Tresiba FlexTouch 200 UNIT/ML 70 UNITS Subcutaneous TWICE A DAY Active Insulin Degludec (Tresiba Flextouch U-200) 200 unit/mL (3 mL) insulin pen (3 sources) Start: 07-21-2023 Insulin Deglud ec (Tresiba Flextouch U-200) 200 unit/mL (3 mL) insulin pen Active 70 UNIT SUBCUT Twice daily July 21, 2023 12:00am ipratropium bromide 0.2 mg/ml inhalation solution (20 sources) Anticholinergic Start: 07-21-2023 take 1 mL by inhalation four times daily Ipratropium [place] Active 0.625 ML INHALATION Four times daily July 21, 2023 12:00am Start: 09-04-2022 take 1 dose by inhal ation four times daily as needed ipratropium (Atrovent) 0.02 % nebulizer solution INHALE 1 VIAL IN NEBULIZER 4 TIMES DAILY NEEDED FOR 30 DAYS 09/04/2022 Active take 1 [IU] by inhal ation four times daily as needed Ipratropium [place] 0.02 % 1 unit dose Inhalation Four times a day DX J44.9 COPD for 30 days prn Active KERENDIA 10 mg tablet (8 sources) Start: 04-17-2022 take 1 tablet by mouth in the morning KERENDIA 10 mg tablet Take 1 tablet by mouth in the morning. 04/17/2022 Active Start: 04-17-2022 take 1 tablet by dinora th in the morning KERENDIA 10 mg tablet Take 1 tablet by mouth in the morning. 0 04/17/2022 Active Kerendia 20 MG tablet (18 sources) take 1 tablet by mouth in the morning Kerendia 20 MG tablet Take 20 mg by mouth in the morning. Active ketoconazole 20 mg/ml medicated shampoo (20 sources) Azole Antifungal Start: ketoconazole (NIZOral) 2 % shampoo APPLY DIRECTED TO AFFECTED AREA OF SCALP UP TO TWO TO THREE TIMES PER WEEK, LET SIT 3 TO 5 MINUTES PRIOR TO RINSING. 11/19/2022 Active Start: 07-10-2022 ketoconazole ( NIZOral) 2 % shampoo 1 Application 07/10/2022 Active loperamide hydrochloride 2 mg oral capsule (20 sources) Opioid Agonist Start: 07-21-2023 take 1 tablet by mouth four times daily as needed Loperamide Active 1 TAB PO Four times daily July 21, 2023 12:00am FreeTextSi tablet as needed Orally Four times a day; Note: Source Status: Taking; Provider: Harpal Foote ( ) Start: 12-13-2022 End: 01-16-2024 take 1 capsule by mouth four times daily as needed for diarrhea loperamide (Imodium) 2 MG capsule Indications: Diarrhea, unspecified type Take 1 capsule (2 mg) by mouth 4 (four) times a day as needed for diarrhea 60 capsule 1 01/16/2024 Active Start: 08-04-2021 [id number] Medicat ion loperamide 2 mg capsule loperamide 2 mg capsule 2 mg 08/04/2021 Active (Outside) take 1 tablet by dinora th every six hours Loperamide HCl 2 MG 1 tablet as needed Orally Four times a day Active losartan potassium 100 mg oral tablet (20 sources) Angiotensin 2 Receptor Shelly Start: 12-16-2019 take 1 tablet by mouth in the morning losartan (COZAAR) 100 mg tablet Indications: Primary hypertension Take 1 tablet (100 mg total) by mouth in the morning. 07/04/2022 Active Multiple Vitamins-Minerals (PRESERVISION AREDS 2 PO) (3 sources) End: 01-16-2024 take 1 capsule by mouth once daily Multiple Vitamins-Minerals (PRESERVISION AREDS 2 PO) Take 1 capsule by mouth Daily 01/16/2024 Discontinued (Other) take 1 capsule by mouth once arturo ly Multiple Vitamins-Minerals (PRESERVISION AREDS 2 PO) Take 1 capsule by mouth Daily Active mupirocin 0.02 mg/mg topical ointment (3 sources) RNA Synthetase Inhibitor Antibacterial Start: 09-03-2023 End: 09-13-2023 mupirocin (Bactroban) 2 % ointment Indications: Fissure in skin Apply topically 2 times a day for 10 days. 30 g 3 09/03/2023 09/13/2023 Active Start: 03-04-2023 mupirocin (Letitia troban) 2 % ointment Indications: Furuncle Apply topically once daily. 44 g 2 03/04/2023 Active Start: 03-03-2023 End: 04-02-2023 mupirocin (Bactroban) 2 % cr eam Indications: Furuncle Apply topically once daily. 44 g 2 03/03/2023 04/02/2023 Active Qv-Rhh-Eh-Vit E-Ilfbns-Wgnvhav (Preservision Areds 2 Plus Mv) 200 mcg-15 mcg- 5 mg-1 mg capsule (3 sources) Start: 07-21-2023 take 1 capsule by mouth twice daily Xj-Vho-Ec-Vit T-Cpydns-Dqznlsb (Preservision Areds 2 Plus Mv) 200 mcg-15 mcg- 5 mg-1 mg capsule Active 1 CAP PO .COMPLEX July 21, 2023 12:00am 1 cap orally bid; omeprazole 20 mg delayed release oral capsule (20 sources) Proton Pump Inhibitor Start: 04-21-2023 omeprazole (PriLOSEC) [address] capsule Indications: Bronchospasm TAKE 1 CAPSULE EVERY DAY 90 capsule 3 04/12/2024 Active Start: [id number] Medicat ion omeprazole omeprazole 40 mg 01/26/2020 Active (Outside) take 2 capsules by m outh every twenty-four hours Omeprazole 20 MG 2 capsules Orally Once a day Active OZEMPIC 1 mg/dose (4 mg/3 mL) pen injector (4 sources) Start: 10-27-2023 OZEMPIC 1 mg/dose (4 mg/3 mL) pen injector Indications: Type 2 diabetes mellitus with hyperglycemia, with long-term current use of insulin [place] Inject 1 mg under the skin every 7 days. 9 mL 3 10/27/2023 Active Ozempic, 1 MG/DOSE, 4 MG/3ML solution pen-injector (18 sources) Start: 10-27-2023 inject 1 mg by subcutaneous injection every week Ozempic, 1 MG/DOSE, 4 MG/3ML solution pen-injector Inject 1 mg under the skin once a week 10/27/2023 Active primidone 250 mg oral tablet (1 source) Anti-epileptic Agent Start: 02-08-2021 [id number] Medication omeprazole 20 mg capsule,delayed release omeprazole 20 mg capsule,delayed release 20 mg 02/08/2021 Active (Outside) Semaglutide (1 source) Start: 11-13-2023 Semaglutide (Ozempic) 1 mg/dose (4 mg/3 mL) pen injector Active MG SUBCUT November 13, 2023 12:00am Semaglutide (OZEMPIC, 0.25 OR 0.5 MG/DOSE, SC) (2 sources) End: 01-16-2024 inject 0.5 mg by subcutaneous injection every week Semaglutide (OZEMPIC, 0.25 OR 0.5 MG/DOSE, SC) Inject 0.5 mg under the skin 1 (one) time per week 01/16/2024 Discontinued sulfamethoxazole 800 mg / trimethoprim 160 mg oral tablet (17 sources) Dihydrofolate Reductase Inhibitor Antibacterial, Sulfonamide Antimicrobial Start: 01-16-2024 End: 04-19-2024 take 1 tablet by mouth once in the morning, then take 1 tablet by mouth once at bedtime sulfamethoxazole-t rimethoprim (Bactrim DS) 800-160 MG per tablet Indications: Sore on scalp Take 1 tablet by mouth in the morning and 1 tablet before bedtime. 14 tablet 1 04/19/2024 Active terbinafine hydrochloride 10 mg/ml topical cream (2 sources) Allylamine Antifungal Start: 04-13-2024 terbinafine (LamISIL) 1 % cream Indications: Tinea cruris Apply 1 Application topically in the morning and 1 Application before bedtime. 60 g 04/13/2024 Active topiramate 50 mg oral tablet (20 sources) Start: 04-12-2024 topiramate 50 MG tablet Indications: Tremor TAKE 1 TABLET TWICE DAILY 180 tablet 3 04/12/2024 Active Start: 06-05-2023 topiramate 50 MG tablet Indications: Tremor TAKE 1 TABLET TWICE DAILY 180 tablet 3 06/05/2023 Active Start: 01-26-2020 [id number] Medicat ion topiramate 25 mg tablet topiramate 25 mg tablet 25 mg 08/15/2021 Active (Outside) take 2 tablets by mo ut twice daily topiramate (Topamax) 25 mg tablet Take 2 tablets (50 mg) by mouth 2 times a day. Active take 1 tablet by dinora th every twenty-four hours Topiramate 50 MG 1 tablet Orally Once a day Active take 1 tablet by dinora th every twelve hours Topiramate 50 MG 1 tablet Orally Twice a day Active traMADol hydrochloride 50 mg oral tablet (20 sources) Opioid Agonist Start: 09-16-2020 [id number] Medicat ion tramadol 50 mg tablet tramadol 50 mg tablet 50 mg TAKE 1 TABLET BY MOUTH EVERY 6 09/16/2020 Active (Outside) Start: 10-14-2019 End: 06-03-2024 take 1 tablet by mouth every six hours for pain traMADol (Ultram) 50 MG tablet Indications: Primary osteoarthritis of both knees Take 1 tablet (50 mg) by mouth every 6 (six) hours if needed for severe pain 60 tablet 2 04/19/2024 06/03/2024 Active 24 hr verapamil hydrochloride 240 mg extended release oral capsule (20 sources) Calcium Channel Shelly Start: 04-12-2024 verapamil ER (Verela n) 240 MG 24 hr capsule Indications: Benign essential hypertension (CMS/HCC) TAKE 1 CAPSULE EVERY MORNING 90 capsule 3 04/12/2024 Active Start: 04-21-2023 verapamil ER ( Verelan) 240 MG 24 hr capsule Indications: Benign essential hypertension (CMS/HCC) TAKE 1 CAPSULE EVERY MORNING 100 capsule 3 04/21/2023 Active Start: 06-24-2021 [id number] Medicat ion verapamil ER 240 mg 24 hr capsule,extended release verapamil ER 240 mg 24 hr capsule,extended release 240 mg 06/24/2021 Active (Outside) verapamil HCl (V ERAPAMIL ORAL) Take 240 mg by mouth. Active take 1 capsule by [facility] every twenty-four hours Verapamil HCl ER 240 MG 1 capsule Orally Once a day Active vit A/vit C/vit E/zinc/coppe r (PRESERVISION AREDS ORAL) (8 sources) vit A/vit C/vit E/zinc/copper (PRESERVISION AREDS ORAL) Take by mouth. Active vit A/vit C/vit E/zinc/copper (PRESERVISION AREDS ORAL) Take by mouth. 0 Active vit C/E/Zn/coppr/lutein/zeax an (PRESERVISION AREDS-2 ORAL) (2 sources) vit C/E/Zn/coppr /lutein/zeaxan (PRESERVISION AREDS-2 ORAL) PreserVision AREDS 2 CAPS Refills: 0 Active Active vit C/E/Zn/coppr /lutein/zeaxan (PRESERVISION AREDS-2 ORAL) PreserVision AREDS 2 CAPS Refills: 0 Active 0 Active Completed/Discontinued Medications Medication Drug Class(es) Dates Sig (Normalized) Sig (Original) amoxicillin 875 mg / clavulanate 125 mg oral tablet (3 sources) Penicillin-class Antibacterial Start: 10-02-2021 take 1 tablet by mouth every twelve hours Amoxicillin-Pot Clavulanate 875-125 MG 1 tablet Orally every 12 hrs for 10 day(s) September, Not-Taking empagliflozin 25 mg oral tablet (20 sources) Sodium-Glucose Cotransporter 2 Inhibitor Start: 07-04-2022 End: 04-19-2024 take 25 mg by mouth in the morning Jardiance 25 MG Take 25 mg by mouth in the morning. 07/04/2022 04/19/2024 Discontinued (Side effects) take 1 tablet by dinora th every twenty-four hours Jardiance 10 MG 1 tablet Orally Once a day Active PreserVision AREDS 2 CAPS (5 sources) PreserVision ARE DS 2 CAPS Quantity: 0 Refills: 0 Ordered: 27-Nov-2020 DO Active Problems Active Problems Problem Classification Problem Date Documented Date Episodic/Chronic Acute and unspecified renal failure (18 sources) Acute renal failure syndrome; Translations: [Acute kidney failure, unspecified] Episodic Administrative/social admission (2 sources) Patient encounter status; Translations: [Other specified counseling] 04-19-2024 Episodic Cataract (18 sources) Bilateral age-related nuclear cataracts; Translations: [Age-related nuclear cataract, bilateral] Onset: 12-13-2022 12-13-2022 Chronic Chronic kidney disease (20 sources) Chronic kidney disease, stage 3 (moderate); Translations: [Chronic kidney disease, stage 2 (mild)] Onset: 09-19-2017 02-27-2023 Chronic Chronic kidney disease (12 sources) Chronic kidney disease; Translations: [Chronic kidney disease, stage 3 unspecified] Onset: 04-18-2021 Resolved: 10-23-2021 Chronic obstructive pulmonary disease and bronchiectasis (20 sources) Chronic obstructive lung disease; Translations: [Chronic obstructive pulmonary disease, unspecified] Onset: 01-16-2024 08-26-2023 Chronic Diabetes mellitus with complications (20 sources) Type 2 diabetes mellitus; Translations: [Type 2 diabetes mellitus with diabetic chronic kidney disease] Onset: 03-06-2012 Resolved: 10-23-2021 Chronic Diabetes mellitus without complication (1 source) Diabetes mellitus without complication; Translations: [Type 2 diabetes mellitus with diabetic chronic kidney disease] Onset: 07-21-2023 Disorders of lipid metabolism (20 sources) Hyperlipidemia; Translations: [Hyperlipidemia, unspecified] Onset: 12-13-2022 07-21-2023 Chronic Essential hypertension (20 sources) Hypertensive disorder; Translations: [Unspecified essential hypertension] Onset: 02-04-2011 02-27-2023 Chronic Hypertension with complications and secondary hypertension (20 sources) Hypertensive renal disease; Translations: [Hypertensive chronic kidney disease with stage 1 through stage 4 chronic kidney disease, or unspecified chronic kidney disease] Onset: 04-18-2021 Resolved: 10-23-2021 Chronic Lymphadenitis (12 sources) Axillary lymphadenopathy; Translations: [Enlargement of lymph nodes] Onset: 10-02-2021 Resolved: 10-02-2021 Episodic Melanomas of skin (20 sources) Malignant melanoma of upper limb; Translations: [Malignant melanoma of skin of upper limb, including shoulder] Onset: 12-13-2022 02-27-2023 Chronic Mood disorders (20 sources) Moderate major depression, single episode; Translations: [Major depressive disorder, single episode, moderate] Onset: 12-13-2022 12-13-2022 Chronic Nutritional deficiencies (20 sources) Vitamin D deficiency, unspecified; Translations: [Vitamin D deficiency] Onset: 09-19-2017 Resolved: 10-23-2021 Chronic Osteoarthritis (20 sources) Osteoarthritis of knee; Translations: [Osteoarthritis of knee, unspecified] Onset: 12-13-2022 12-13-2022 Chronic Other and unspecified benign neoplasm (8 sources) Hemangioma of skin and subcutaneous tissue; Translations: [Hemangioma of skin and subcutaneous tissue] Onset: 09-13-2020 Episodic Other and unspecified benign neoplasm (4 sources) Melanocytic nevi of trunk Onset: 09-13-2020 Episodic Other and unspecified benign neoplasm (17 sources) Melanocytic nevi of unspecified upper limb, including shoulder Onset: 01-26-2020 Episodic Other and unspecified benign neoplasm (4 sources) Melanocytic nevi of unspecified lower limb, including hip Onset: 09-13-2020 Episodic Other and unspecified benign neoplasm (2 sources) Melanocytic nevus; Translations: [Melanocytic nevi, unspecified] 03-03-2023 Episodic Other and unspecified benign neoplasm (1 source) Hemangioma of skin; Translations: [Hemangioma of skin and subcutaneous tissue] 09-03-2023 Episodic Other connective tissue disease (4 sources) Trochanteric bursitis, right hip; Translations: [TROCHANTERIC BURSITIS RIGHT HIP] Onset: 08-03-2021 Episodic Other connective tissue disease (7 sources) Pain in left foot; Translations: [Pain in left foot] 02-24-2024 Episodic Other diseases of kidney and ureters (18 sources) Hydronephrosis; Translations: [Unspecified hydronephrosis] Episodic Other diseases of veins and lymphatics (18 sources) Lymphedema; Translations: [Lymphedema, not elsewhere classified] Onset: 12-13-2022 12-13-2022 Chronic Other eye disorders (20 sources) Vitreous hemorrhage; Translations: [Vitreous hemorrhage, unspecified eye] Onset: 03-06-2012 01-16-2024 Chronic Other eye disorders (18 sources) Bilateral vitreous degeneration of eyes; Translations: [Vitreous degeneration, bilateral] Onset: 12-13-2022 12-13-2022 Chronic Other hereditary and degenerative nervous system conditions (7 sources) Hereditary essential tremor; Translations: [Essential and other specified forms of tremor] Onset: 02-27-2023 02-27-2023 Chronic Other hereditary and degenerative nervous system conditions (18 sources) Essential tremor; Translations: [Essential tremor] Onset: 12-13-2022 12-13-2022 Chronic Other lower respiratory disease (5 sources) Dyspnea, unspecified Onset: 04-02-2021 Resolved: 10-02-2021 Episodic Other non-traumatic joint disorders (2 sources) Pain in right knee; Translations: [Pain in joint, lower leg] 01-16-2024 Episodic Other nutritional; endocrine; and metabolic disorders (19 sources) Obesity caused by energy imbalance; Translations: [Morbid (severe) obesity due to excess calories] Onset: 02-26-2023 01-16-2024 Chronic Other nutritional; endocrine; and metabolic disorders (19 sources) Body mass index 40+ - severely obese; Translations: [Body mass index (BMI) 50.0-59.9, adult] Onset: 01-16-2024 01-16-2024 Chronic Other nutritional; endocrine; and metabolic disorders (1 source) Severe obesity; Translations: [Morbid (severe) obesity due to excess calories] Onset: 02-26-2023 02-26-2023 Chronic Other skin disorders (2 sources) Lentiginosis; Translations: [Other melanin hyperpigmentation] 03-03-2023 Episodic Other skin disorders (1 source) Fissure in skin; Translations: [Changes in skin texture] 09-03-2023 Episodic Other skin disorders (2 sources) Changes in skin texture; Translations: [Changes in skin texture] Onset: 09-03-2023 Episodic Other skin disorders (20 sources) Ingrowing toenail; Translations: [Ingrowing nail] Onset: 10-24-2022 02-24-2024 Episodic Other upper respiratory disease (6 sources) Rhinitis; Translations: [Chronic rhinitis] 09-01-2023 Chronic Other upper respiratory disease (2 sources) Chronic rhinitis Chronic Residual codes; unclassified (20 sources) Obstructive sleep apnea syndrome; Translations: [Obstructive sleep apnea (adult)(pediatric)] Onset: 12-13-2022 02-27-2023 Chronic Residual codes; unclassified (6 sources) Family history of malignant neoplasm of other organs or systems; Translations: [Family history of malignant neoplasm of other organs or systems] Onset: 09-13-2020 Episodic Residual codes; unclassified (1 source) Edema, unspecified; Translations: [EDEMA UNSPECIFIED] Onset: 08-06-2021 Episodic Residual codes; unclassified (1 source) Family history of malignant melanoma; Translations: [Family history of malignant neoplasm of other organs or systems] 09-03-2023 Episodic Retinal detachments; defects; vascular occlusion; and retinopathy (19 sources) Nonexudative age-related macular degeneration; Translations: [Nonexudative age-related macular degeneration, bilateral, early dry stage] Onset: 12-13-2022 12-13-2022 Chronic Past or Other Problems Problem Classification Problem Date Documented Da te Episodic/Chronic Allergic reactions (6 sources) Dermatitis, unspecified; Translations: [Inflammatory dermatosis] Onset: 07-09-2022 02-27-2023 Episodic Calculus of urinary tract (20 sources) Kidney stone; Translations: [Calculus of kidney] Onset: 04-18-2021 Resolved: 10-23-2021 Episodic Diabetes mellitus without complication (20 sources) Diabetes mellitus; Translations: [Diabetes mellitus without mention of complication, type II or unspecified type, not stated as uncontrolled] Onset: 07-08-2013 Resolved: 01-16-2024 02-27-2023 Chronic Melanomas of skin (20 sources) Personal history of malignant melanoma of skin; Translations: [History of malignant melanoma of the skin] Onset: 09-13-2020 03-03-2023 Episodic Mood disorders (8 sources) Mood disorders Onset: 02-03-2020 02-03-2020 Mycoses (20 sources) Onychomycosis; Translations: [Tinea unguium] Onset: 10-24-2022 10-24-2022 Episodic Neoplasms of unspecified nature or uncertain behavior (6 sources) Neoplasm of uncertain behavior of skin; Translations: [Neoplasm of uncertain behavior of skin] Onset: 07-09-2022 02-27-2023 Episodic Other aftercare (1 source) [facility] (current) use of insulin; Translations: [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 terminal and 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 (current) use of insulin] Onset: 10-22-2022 Episodic Other and unspecified benign neoplasm (2 sources) Hemangioma; Translations: [Hemangioma of other sites] Onset: 03-03-2023 03-03-2023 Episodic Other and unspecified benign neoplasm (20 sources) Hemangioma of skin and subcutaneous tissue; Translations: [Hemangioma of skin and subcutaneous tissue] Onset: 09-09-2022 02-27-2023 Episodic Other and unspecified benign neoplasm (20 sources) Melanocytic nevus of trunk; Translations: [Melanocytic nevi of trunk] Onset: 09-09-2022 02-27-2023 Episodic Other and unspecified benign neoplasm (20 sources) Melanocytic nevus of lower limb; Translations: [Melanocytic nevi of unspecified lower limb, including hip] Onset: 09-09-2022 02-27-2023 Episodic Other and unspecified benign neoplasm (20 sources) Melanocytic nevus of upper limb; Translations: [Melanocytic nevi of unspecified upper limb, including shoulder] Onset: 09-09-2022 02-27-2023 Episodic Other and unspecified benign neoplasm (2 sources) Melanocytic nevi, unspecified; Translations: [Melanocytic nevi, unspecified] Onset: 03-03-2023 Episodic Other and unspecified benign neoplasm (1 source) Hemangioma of other sites; Translations: [Hemangioma of other sites] Onset: 03-03-2023 Episodic Other connective tissue disease (18 sources) Pain in both feet; Translations: [Pain in right foot] Onset: 10-24-2022 10-24-2022 Episodic Other connective tissue disease (18 sources) Muscle pain; Translations: [Myalgia, unspecified site] Onset: 06-10-2023 06-10-2023 Episodic Other diseases of veins and lymphatics (18 sources) Vascular insufficiency; Translations: [Venous insufficiency (chronic) (peripheral)] Onset: 10-24-2022 10-24-2022 Episodic Other gastrointestinal disorders (19 sources) Diarrhea; Translations: [Diarrhea, unspecified] Onset: 01-16-2024 01-16-2024 Episodic Other screening for suspected conditions (not mental disorders or infectious disease) (20 sources) Abnormal results of kidney function studies; Translations: [Patient encounter status] Onset: 08-06-2021 09-03-2023 Episodic Other skin disorders (8 sources) Other melanin hyperpigmentation; Translations: [Other melanin hyperpigmentation] Onset: 09-13-2020 Episodic Other skin disorders (8 sources) Other seborrheic keratosis; Translations: [Other seborrheic keratosis] Onset: 09-13-2020 Episodic Other skin disorders (8 sources) Scar conditions and fibrosis of skin; Translations: [Scar conditions and fibrosis of skin] Onset: 09-13-2020 Episodic Other skin disorders (20 sources) Seborrheic keratosis; Translations: [Other seborrheic keratosis] Onset: 09-09-2022 03-03-2023 Episodic Other skin disorders (20 sources) Scar conditions and fibrosis of skin; Translations: [Scar conditions and fibrosis of skin] Onset: 09-09-2022 03-03-2023 Episodic Other skin disorders (20 sources) Disorder of pigmentation; Translations: [Other melanin hyperpigmentation] Onset: 09-09-2022 02-27-2023 Episodic Other skin disorders (20 sources) Lesion of scalp; Translations: [Disorder of the skin and subcutaneous tissue, unspecified] Onset: 01-16-2024 01-16-2024 Episodic Other upper respiratory disease (18 sources) Bronchospasm; Translations: [Acute bronchospasm] Onset: 12-13-2022 12-13-2022 Episodic Pulmonary heart disease (20 sources) Pulmonary embolism; Translations: [Other pulmonary embolism and infarction] Onset: 02-27-2023 Resolved: 01-16-2024 02-27-2023 Episodic Residual codes; unclassified (7 sources) Localized edema; Translations: [Localized edema] Onset: 04-18-2021 Resolved: 10-23-2021 Episodic Skin and subcutaneous tissue infections (3 sources) Furuncle; Translations: [Furuncle, unspecified] Onset: 03-03-2023 03-03-2023 Episodic Unclassified (8 sources) Onset: 02-03-2020 02-03-2020 Results Test Name Value Interpretation Reference Range Facility Hemogram CBC Without Diffon 04-12-2024 Erythrocyte distribution width (RBC) [Ratio] 15.1 % Normal 11.9-15.3 [facility] Comment on above: Performed By: #### R ENAL, MG, [id number], CBCNO, URIC, PTH #### [address] Hematocrit (Bld) [Volume fraction] 45.9 % Normal 34.0-46.4 [facility] Comment on above: Performed By: #### R ENAL, MG, [id number], CBCNO, URIC, PTH #### [address] Hemoglobin (Bld) [Mass/Vol] 15.3 g/dL Normal 11.8-15.4 [facility] Comment on above: Performed By: #### R ENAL, MG, [id number], CBCNO, URIC, PTH #### [address] MCH (RBC) [Entitic mass] 29.1 pg Normal 24.7-34.3 [facility] Comment on above: Performed By: #### R ENAL, MG, [id number], CBCNO, URIC, PTH #### [address] MCV (RBC) [Entitic vol] 86.9 fL Normal 80-100 [facility] Comment on above: Performed By: #### R ENAL, MG, [id number], CBCNO, URIC, PTH #### [address] Mean Corpuscular HGB Conc 33.4 g/dL Normal 32.0-35.0 [facility] Comment on above: Performed By: #### R ENAL, MG, [id number], CBCNO, URIC, PTH #### [address] Platelet mean volume (Bld) [Entitic vol] 8.6 fL Normal 6.3-10.[address] [facility] Comment on above: Result Comment: PERF ORMED BY: [place] [address] PATHOLOGIST SYSTEMS INTEGRATION ADVISOR OLIVERIO ARTHUR M.D. Performed By: #### R ENAL, MG, [id number], CBCNO, URIC, PTH #### [address] Platelets (Bld) [#/Vol] 336 10*3/uL Normal 150-450 [facility] Comment on above: Performed By: #### R ENAL, MG, [id number], CBCNO, URIC, PTH #### [address] RBC (Bld) [#/Vol] 5.28 10*6/uL High 3.60-5.00 [facility] Comment on above: Performed By: #### R ENAL, MG, [id number], CBCNO, URIC, PTH #### [address] WBC (Bld) [#/Vol] 7.6 10*3/uL Normal 3.8-11.6 [facility] Comment on above: Performed By: #### R ENAL, MG, [id number], CBCNO, URIC, PTH #### [address] Laboratory - Chemistry and C hemistry - challengeon 04-12-2024 Albumin [Mass/Vol] 3.8 g/dL [facility] Creatinine (U) [Mass/Vol] 1.58 mg/dL [facility] GFR/1.73 sq M.predicted among non-blacks MDRD (S/P/Bld) [Vol rate/Area] 34.5 mL/min/{1.73_m2} [facility] Magnesiumon 04-12-2024 Magnesium [Mass/Vol] 2.2 mg/dL Normal 1.9-2.7 [facility] Comment on above: Performed By: #### R ENAL, MG, [id number], CBCNO, URIC, PTH #### [address] No Panel Informationon 04-12 [facility] Parathyroid Hormone Intacton 04-12-2024 Parathyroid Hormone Intact 15.0 pg/mL Normal 12-88 [facility] Comment on above: Result Comment: PERF ORMED BY: [place] [address] PATHOLOGIST SYSTEMS INTEGRATION ADVISOR OLIVERIO ARTHUR M.D. Performed By: #### R ENAL, MG, [id number], CBCNO, URIC, PTH #### [address] Renal Function Panelon 04-12 Albumin [Mass/Vol] 3.8 g/dL Normal 3.5-5.7 [facility] Comment on above: Performed By: #### R ENAL, MG, [id number], CBCNO, URIC, PTH #### [address] Anion gap [Moles/Vol] 13.0 mmol/L Normal 6.0-15.0 [facility] Comment on above: Performed By: #### R ENAL, MG, [id number], CBCNO, URIC, PTH #### [address] Calcium [Mass/Vol] 9.5 mg/dL Normal 8.6-10.3 [facility] Comment on above: Performed By: #### R ENAL, MG, [id number], CBCNO, URIC, PTH #### [address] Chloride [Moles/Vol] 103 mmol/L Normal 98-107 [facility] Comment on above: Performed By: #### R ENAL, MG, [id number], CBCNO, URIC, PTH #### [facility] [address] CO2 [Moles/Vol] 24.2 mmol/L Normal 21.0-31.0 [facility] Comment on above: Performed By: #### R ENAL, MG, [id number], CBCNO, URIC, PTH #### [address] Creatinine [Mass/Vol] 1.58 mg/dL High 0.60-1.20 [facility] Comment on above: Performed By: #### R ENAL, MG, [id number], CBCNO, URIC, PTH #### [address] Estimated GFR 34.572 mL/Min Normal [facility] Comment on above: Performed By: #### R ENAL, MG, [id number], CBCNO, URIC, PTH #### [address] Glucose [Mass/Vol] 232 mg/dL High 70-100 [facility] Comment on above: Result Comment: [facility] Glucose Reference Range is dependent on time and content of last meal. Glucose of more than 200 mg/dL in a nonstressed, ambulatory subject supports the diagnosis of Diabetes Mellitus. ADA recommended reference range Performed By: #### R ENAL, MG, [id number], CBCNO, URIC, PTH #### [address] Phosphate [Mass/Vol] 4.4 mg/dL Normal 2.5-4.5 [facility] Comment on above: Performed By: #### R ENAL, MG, [id number], CBCNO, URIC, PTH #### [address] Potassium [Moles/Vol] 4.2 mmol/L Normal 3.5-5.1 [facility] Comment on above: Performed By: #### R ENAL, MG, [id number], CBCNO, URIC, PTH #### [place] [address] [place] Sodium [Moles/Vol] 136 mmol/L Normal 136-145 [facility] Comment on above: Performed By: #### R ENAL, MG, [id number], CBCNO, URIC, PTH #### [address] Urea nitrogen [Mass/Vol] 33 mg/dL High 7-25 [facility] Comment on above: Performed By: #### R ENAL, MG, [id number], CBCNO, URIC, PTH #### [address] Uric Acidon 04-12-2024 Urate [Mass/Vol] 5.2 mg/dL Normal 2.3-6.6 [facility] Comment on above: Performed By: #### R ENAL, MG, [id number], CBCNO, URIC, PTH #### [address] Vitamin D 25 Hydroxy Totalon 04-12-2024 Vitamin D 25 Hydroxy Total 47.3 ng/mL Normal 30-100 [facility] Comment on above: Result Comment: YAZMIN MIN D STATUS 25(OH)VITAMIN D RANGE (ng/mL) Deficient <20 Insufficient 20 to <30 Sufficient 30 to 100 Reference: Brittni MF,Mitzy NC, Brandt CONNER, et al. Evaluation,treatment, and prevention of vitamin D deficiency; an Endocrine Society clinical practice guideline. JCEM. 2010; 96(7):1911-30. PERFORMED BY: [place] [address] PATHOLOGIST SYSTEMS INTEGRATION ADVISOR OLIVERIO ARTHUR M.D. Performed By: #### R ENAL, MG, [id number], CBCNO, URIC, PTH #### [address] POCT Hemoglobin A1con 2023 HbA1c (Bld) [Mass fraction] 7.6 % Abnormal 4 - 7 % [facility] Interpretation and review of laboratory results [facility] Albumin [Mass/volume] in Ser um or Plasma by Bromocresol green (BCG) dye binding methoOrdered By: Dilan Nguyễn on 11-10-2023 Albumin BCG dye [Mass/Vol] 4.0 g/dL 3.5-5.7 [facility] Calcium [Mass/volume] in Ser um or PlasmaOrdered By: Dilan Sergio on 11-10-2023 Calcium [Mass/Vol] 9.5 mg/dL Normal 8.6-10.3 [facility] Comment on above: Performed By: #### R ENAL, MG, [id number], CBCNO, URIC, PTH #### [facility] [address] Carbon dioxide, total [Moles /volume] in Serum or PlasmaOrdered By: Dilan Nguyễn on 11-10-2023 CO2 [Moles/Vol] 27.1 mmol/L Normal 21.0-31.0 [facility] Comment on above: Performed By: #### R ENAL, MG, [id number], CBCNO, URIC, PTH #### [facility] [address] [place] [address] [place] Chloride [Moles/volume] in S hayder or PlasmaOrdered By: Dilan Nguyễn on 11-10-2023 Chloride [Moles/Vol] 102 mmol/L Normal 98-107 [facility] Comment on above: Performed By: #### R ENAL, MG, [id number], CBCNO, URIC, PTH #### [facility] [address] [place] [address] [place] Creatinine [Mass/volume] in Serum or PlasmaOrdered By: Dilan Nguyễn on 11-10-2023 Creatinine [Mass/Vol] 2.10 mg/dL High 0.60-1.[address] [facility] Comment on above: Performed By: #### R ENAL, MG, [id number], CBCNO, URIC, PTH #### [facility] [address] [place] [address] [place] Erythrocyte distribution wid th [Ratio] by Automated countOrdered By: Dilan Nguễyn on 11-10-2023 Erythrocyte distribution width (RBC) [Ratio] 14.8 % Normal 11.9-15.3 [facility] Comment on above: Performed By: #### R ENAL, MG, [id number], CBCNO, URIC, PTH #### [facility] [address] Erythrocytes [#/volume] in B lood by Automated countOrdered By: Dilan Nguyễn on 11-10-2023 RBC (Bld) [#/Vol] 5.05 10*6/uL High 3.60-5.00 [facility] Comment on above: Performed By: #### R ENAL, MG, [id number], CBCNO, URIC, PTH #### [facility] [address] Glucose [Mass/volume] in Ser um or PlasmaOrdered By: Dilan Nugyễn on 11-10-2023 Glucose [Mass/Vol] 239 mg/dL High 70-100 [facility] Comment on above: ADA recommended refe rence rangeRandom Glucose Reference Range is dependent on time and content of last meal. Glucose of more than 200 mg/dL in a nonstressed, ambulatory subject supports the diagnosis of Diabetes Mellitus. Result Comment: [place] Glucose Reference Range is dependent on time and content of last meal. Glucose of more than 200 mg/dL in a nonstressed, ambulatory subject supports the diagnosis of Diabetes Mellitus. ADA recommended reference range Performed By: #### R ENAL, MG, [id number], CBCNO, URIC, PTH #### [facility] [address] [place] [address] [place] Hematocrit [Volume Fraction] of Blood by Automated countOrdered By: Dilan Nguyễn on 11-10-2023 Hematocrit (Bld) [Volume fraction] 45.1 % Normal 34.0-46.4 [facility] Comment on above: Performed By: #### R ENAL, MG, [id number], CBCNO, URIC, PTH #### [facility] [address] Hemoglobin [Mass/volume] in BloodOrdered By: Dilan Nguyễn on 11-10-2023 Hemoglobin (Bld) [Mass/Vol] 15.0 g/dL Normal 11.8-15.4 [facility] Comment on above: Performed By: #### R ENAL, MG, [id number], CBCNO, URIC, PTH #### [facility] [address] Hemogram CBC Without Diffon 11-10-2023 Mean Corpuscular HGB Conc 33.2 g/dL Normal 32.0-35.0 [facility] Comment on above: Performed By: #### R ENAL, MG, [id number], CBCNO, URIC, PTH #### [facility] [address] WBC (Bld) [#/Vol] 9.1 10*3/uL Normal 3.8-11.6 [facility] Comment on above: Performed By: #### R ENAL, MG, [id number], CBCNO, URIC, PTH #### [address] Leukocytes [#/volume] correc cristine for nucleated erythrocytes in Blood by Automated counOrdered By: Dilan Nguyễn on 11-10-2023 WBC corrected for nucl RBC Auto (Bld) [#/Vol] 9.1 10*3/uL 3.8-11.6 [facility] MCH [Entitic mass] by Automa cristine countOrdered By: Dilan Nguyễn on 11-10-2023 MCH (RBC) [Entitic mass] 29.7 pg Normal 24.7-34.3 [facility] Comment on above: Performed By: #### R ENAL, MG, [id number], CBCNO, URIC, PTH #### [address] MCHC Auto (RBC) [Mass/Vol]Or dered By: Dilan Nguyễn on 11-10-2023 MCHC (RBC) [Mass/Vol] 33.2 g/dL 32.0-35.[address] [facility] MCV [Entitic volume] by Auto mated countOrdered By: Dilan Nguyễn on 11-10-2023 MCV (RBC) [Entitic vol] 89.4 fL Normal 80-100 [facility] Comment on above: Performed By: #### R ENAL, MG, [id number], CBCNO, URIC, PTH #### [facility] [address] Magnesium [Mass/volume] in S hayder or PlasmaOrdered By: Dilan Nguyễn on 11-10-2023 Magnesium [Mass/Vol] 2.2 mg/dL Normal 1.9-2.7 [facility] Comment on above: Performed By: #### R ENAL, MG, [id number], CBCNO, URIC, PTH #### [facility] [address] No Panel InformationOrdered By: Dilan Nguyễn on 11-10-2023 Estimated GFR (CKD-EPI) 24.573 mL/Min [facility] Creatinine Clearance (Chem N/A [facility] Phosphate [Mass/volume] in S hayder or PlasmaOrdered By: Dilan Nguyễn on 11-10-2023 Phosphate [Mass/Vol] 4.9 mg/dL High 2.5-4.5 [facility] Comment on above: Performed By: #### R ENAL, MG, [id number], CBCNO, URIC, PTH #### [facility] [address] [place] [address] Platelet mean volume [Entiti c volume] in Blood by Automated countOrdered By: Dilan Nguyễn on 11-10-2023 Platelet mean volume (Bld) [Entitic vol] 8.5 fL Normal 6.3-10.7 [facility] Comment on above: Result Comment: PERF ORMED BY: [place] [address] PATHOLOGIST SYSTEMS INTEGRATION ADVISOR JACQUELINE ZAVALA M.D. Performed By: #### R ENAL, MG, [id number], CBCNO, URIC, PTH #### [facility] [address] Platelets [#/volume] in Bloo d by Automated countOrdered By: Dilan Nguyễn on 11-10-2023 Platelets (Bld) [#/Vol] 350 10*3/uL Normal 150-450 [facility] Comment on above: Performed By: #### R ENAL, MG, [id number], CBCNO, URIC, PTH #### [facility] [address] Potassium [Moles/volume] in Serum or PlasmaOrdered By: Dilan Nguyễn on 11-10-2023 Potassium [Moles/Vol] 4.0 mmol/L Normal 3.5-5.[address] [facility] Comment on above: Performed By: #### R ENAL, MG, [id number], CBCNO, URIC, PTH #### [facility] [address] Renal Function Panelon 11-09 Albumin [Mass/Vol] 4.0 g/dL Normal 3.5-5.7 [facility] Comment on above: Performed By: #### R ENAL, MG, [id number], CBCNO, URIC, PTH #### [address] GFR/1.73 sq M.predicted MDRD (S/P/Bld) [Vol rate/Area] 24.573 mL/min/{1.73_m2} Normal [facility] Comment on above: Performed By: #### R ENAL, MG, [id number], CBCNO, URIC, PTH #### [address] Serum or plasma anion gap de terminationOrdered By: Dilan Nguyễn on 11-10-2023 Anion gap [Moles/Vol] 11.9 mmol/L Normal 6.0-15.0 [facility] Comment on above: Performed By: #### R ENAL, MG, [id number], CBCNO, URIC, PTH #### [address] Sodium [Moles/volume] in Ser um or PlasmaOrdered By: Dilan Nguyễn on 11-10-2023 Sodium [Moles/Vol] 137 mmol/L Normal 136-145 [facility] Comment on above: Performed By: #### R ENAL, MG, [id number], CBCNO, URIC, PTH #### [facility] [address] [place] [id number] [facility] Urate [Mass/volume] in Serum or PlasmaOrdered By: Dilan Sergio on 11-10-2023 Urate [Mass/Vol] 4.9 mg/dL Normal 2.3-6.6 [facility] Comment on above: Performed By: #### R ENAL, MG, [id number], CBCNO, URIC, PTH #### [facility] [address] [place] [address] [facility] Urea nitrogen [Mass/volume] in Serum or PlasmaOrdered By: Dilan Sergio on 11-10-2023 Urea nitrogen [Mass/Vol] 46 mg/dL High 7-25 [facility] Comment on above: Performed By: #### R ENAL, MG, [id number], CBCNO, URIC, PTH #### [facility] [address] [place] [id number] [facility] Vitamin D 25 Hydroxy Totalon 11-10-2023 Vitamin D 25 Hydroxy Total 50.4 ng/mL Normal 30-100 [facility] Comment on above: Result Comment: YAZMIN MIN D STATUS 25(OH)VITAMIN D RANGE (ng/mL) Deficient <20 Insufficient 20 to <30 Sufficient 30 to 100 Reference: Brittni MF,Mitzy NC, Brandt CONNER, et al. Evaluation,treatment, and prevention of vitamin D deficiency; an Endocrine Society clinical practice guideline. JCEM. 2010; 96(7):1911-30. PERFORMED BY: [place] [address] PATHOLOGIST SYSTEMS INTEGRATION ADVISOR JACQUELINE ZAVALA M.D. Performed By: #### R ENAL, MG, [id number], CBCNO, URIC, PTH #### [facility] [address] [place], [place] [id number] [facility] Vitamin D+Metabolites [Mass/ volume] in Serum or PlasmaOrdered By: Dilan Sergio on 11-10-2023 Vitamin D+Metabolites [Mass/Vol] 50.4 ng/mL 30-100 [facility] Comment on above: VITAMIN D STATUS 25( [place])VITAMIN D RANGE (ng/mL) Deficient <20 Insufficient 20 to <30Sufficient 30 to 100Reference: Brittni BAGLEY,Mitzy [place], Brandt CONNER, et al. Evaluation,treatment, and prevention of vitamin D deficiency; an Endocrine Society clinical practice guideline. JCEM. 2010; 96(7):1911-30. POCT Hemoglobin A1con 2023 ADA Target < [address] [facility] HbA1c (Bld) [Mass fraction] 7.7 g/dL Abnormal 4 - 7 g/dL [facility] Interpretation and review of laboratory results Abnormal [facility] Microalbumin/Creatinine rati o panel (U)on 08-05-2023 Albumin DL <= 20 mg/L (U) [Mass/Vol] 4 mg/dL [facility] Albumin/Creatinine DL <= 1.0 mg/L (U) [Ratio] 1.2 [facility] Creatinine (U) [Mass/Vol] 65 mg/dL [facility] Albumin [Mass/volume] in Ser um or Plasma by Bromocresol green (BCG) dye binding methoOrdered By: Dilan Nguyễn on 07-21-2023 Albumin BCG dye [Mass/Vol] 4.3 g/dL 3.5-5.7 [facility] Calcium [Mass/volume] in Ser um or PlasmaOrdered By: Dilan Nguyễn on 07-21-2023 Calcium [Mass/Vol] 9.8 mg/dL Normal 8.6-10.3 [facility] Comment on above: Performed By: #### R ENAL, MG, [id number], CBCNO, URIC, PTH #### [facility] [address] Carbon dioxide, total [Moles /volume] in Serum or PlasmaOrdered By: Dilan Nguyễn on 07-21-2023 CO2 [Moles/Vol] 29.2 mmol/L Normal 21.0-31.0 [facility] Comment on above: Performed By: #### R ENAL, MG, [id number], CBCNO, URIC, PTH #### [facility] [address] Chloride [Moles/volume] in S hayder or PlasmaOrdered By: Dilan Nguyễn on 07-21-2023 Chloride [Moles/Vol] 103 mmol/L Normal 98-107 [facility] Comment on above: Performed By: #### R ENAL, MG, [id number], CBCNO, URIC, PTH #### [facility] [address] Creatinine [Mass/volume] in Serum or PlasmaOrdered By: Dilan Nguyễn on 07-21-2023 Creatinine [Mass/Vol] 1.86 mg/dL High 0.60-1.[address] [facility] Comment on above: Performed By: #### R ENAL, MG, [id number], CBCNO, URIC, PTH #### [facility] [address] [place] [id number] [facility] Glucose [Mass/volume] in Ser um or PlasmaOrdered By: Dilan Nguyễn on 07-21-2023 Glucose [Mass/Vol] 208 mg/dL High 70-100 [facility] Comment on above: ADA recommended refe rence rangeRandom Glucose Reference Range is dependent on time and content of last meal. Glucose of more than 200 mg/dL in a nonstressed, ambulatory subject supports the diagnosis of Diabetes Mellitus. Result Comment: [place] Glucose Reference Range is dependent on time and content of last meal. Glucose of more than 200 mg/dL in a nonstressed, ambulatory subject supports the diagnosis of Diabetes Mellitus. ADA recommended reference range Performed By: #### R ENAL, MG, [id number], CBCNO, URIC, PTH #### [facility] [address] No Panel InformationOrdered By: Dilan Nguyễn on 07-21-2023 Estimated GFR (CKD-EPI) 28.425 mL/Min [facility] Creatinine Clearance (Chem N/A [facility] Phosphate [Mass/volume] in S hayder or PlasmaOrdered By: Dilan Nguyễn on 07-21-2023 Phosphate [Mass/Vol] 4.9 mg/dL High 2.5-4.5 [facility] Comment on above: Performed By: #### R ENAL, MG, [id number], CBCNO, URIC, PTH #### [address] Potassium [Moles/volume] in Serum or PlasmaOrdered By: Dilan Sergio on 07-21-2023 Potassium [Moles/Vol] 4.5 mmol/L Normal 3.5-5.[address] [facility] Comment on above: Performed By: #### R ENAL, MG, [id number], CBCNO, URIC, PTH #### [address] Renal Function Panelon 07-20 Albumin [Mass/Vol] 4.3 g/dL Normal 3.5-5.7 [facility] Comment on above: Result Comment: PERF ORMED BY: [place] [address] PATHOLOGIST SYSTEMS INTEGRATION ADVISOR JACQUELINE ZAVALA M.D. Performed By: #### R ENAL, MG, [id number], CBCNO, URIC, PTH #### [address] GFR/1.73 sq M.predicted MDRD (S/P/Bld) [Vol rate/Area] 28.425 mL/min/{1.73_m2} Normal [facility] Comment on above: Performed By: #### R ENAL, MG, [id number], CBCNO, URIC, PTH #### [address] Serum or plasma anion gap de terminationOrdered By: Dilan Sergio on 07-21-2023 Anion gap [Moles/Vol] 11.3 mmol/L Normal 6.0-15.0 [facility] Comment on above: Performed By: #### R ENAL, MG, [id number], CBCNO, URIC, PTH #### [address] Sodium [Moles/volume] in Ser um or PlasmaOrdered By: Dilan Nguyễn on 07-21-2023 Sodium [Moles/Vol] 139 mmol/L Normal 136-145 [facility] Comment on above: Performed By: #### R ENAL, MG, [id number], CBCNO, URIC, PTH #### [facility] [address] Urea nitrogen [Mass/volume] in Serum or PlasmaOrdered By: Dilan Nguyễn on 07-21-2023 Urea nitrogen [Mass/Vol] 34 mg/dL High 7-25 [facility] Comment on above: Performed By: #### R ENAL, MG, [id number], CBCNO, URIC, PTH #### [facility] [address] Albumin [Mass/volume] in Ser um or Plasma by Bromocresol green (BCG) dye binding methoOrdered By: Dilan Nguyễn on 07-18-2023 Albumin BCG dye [Mass/Vol] 4.1 g/dL 3.5-5.7 [facility] Automated erythrocytes count in urine sediment (number/area)Ordered By: Dilan Nguyễn on 07-18-2023 RBC Auto (Urine sed) [#/Area] 10-19 [HPF] 0-4 [facility] Automated leukocytes count i n urine sediment (number/area)Ordered By: Dilan Nguyễn on 07-18-2023 WBC Auto (Urine sed) [#/Area] 10-19 [HPF] 0-4 [facility] Automated urine color determ inationOrdered By: Dilan Nguyễn on 07-18-2023 Color (U) Yellow Normal Yellow [facility] Comment on above: Order Comment: Reaso n for Exam Hypertensive chronic kidney disease with stage 1 through sta Name Collection Type:: Clean-Voided Midstream Performed By: #### R ENAL, MG, [id number], CBCNO, URIC, PTH #### [facility] [address] Bilirubin Test strip Ql (U)O rdered By: Dilan Nguyễn on 07-18-2023 Bilirubin Ql (U) Negative Negative [facility] Calcium [Mass/volume] in Ser um or PlasmaOrdered By: Dilan Sergio on 07-18-2023 Calcium [Mass/Vol] 9.2 mg/dL Normal 8.6-10.3 [facility] Comment on above: Order Comment: Reaso n for Exam Hypertensive chronic kidney disease with stage 1 through sta Performed By: #### M G, [id number], URIC, RENAL #### [facility] [address] [place] [id number] [place] Carbon dioxide, total [Moles /volume] in Serum or PlasmaOrdered By: Dilan Sergio on 07-18-2023 CO2 [Moles/Vol] 27.0 mmol/L Normal 21.0-31.0 [facility] Comment on above: Order Comment: Reaso n for Exam Hypertensive chronic kidney disease with stage 1 through sta Performed By: #### M G, [id number], URIC, RENAL #### [facility] [address] [place] [id number] [place] Chloride [Moles/volume] in S hayder or PlasmaOrdered By: Dilan Sergio on 07-18-2023 Chloride [Moles/Vol] 101 mmol/L Normal 98-107 [facility] Comment on above: Order Comment: Reaso n for Exam Hypertensive chronic kidney disease with stage 1 through sta Performed By: #### M G, [id number], URIC, RENAL #### [facility] [address] [place] [address] [place] Creatinine [Mass/volume] in Serum or PlasmaOrdered By: Dilan Sergio on 07-18-2023 Creatinine [Mass/Vol] 2.96 mg/dL High 0.60-1.[address] [facility] Comment on above: Order Comment: Reaso n for Exam Hypertensive chronic kidney disease with stage 1 through sta Performed By: #### M G, [id number], URIC, RENAL #### [facility] [address] [place] [address] [place] Creatinine [Mass/volume] in UrineOrdered By: Dilan Sergio on 07-18-2023 Creatinine (U) [Mass/Vol] 65.0 mg/dL 11.0-20.0 [facility] Dipstick and Microscopicon 0 07-18-2023 Appearance (U) Clear Normal Clear [facility] Comment on above: Order Comment: Reaso n for Exam Hypertensive chronic kidney disease with stage 1 through sta Name Collection Type:: Clean-Voided Midstream Performed By: #### R ENAL, MG, [id number], CBCNO, URIC, PTH #### [facility] [address] Bacteria,Urine None Seen Normal None Seen [facility] Comment on above: Order Comment: Reaso n for Exam Hypertensive chronic kidney disease with stage 1 through sta Name Collection Type:: Clean-Voided Midstream Performed By: #### R ENAL, MG, [id number], CBCNO, URIC, PTH #### [address] Bilirubin,Urine Negative Normal Negative [facility] Comment on above: Order Comment: Reaso n for Exam Hypertensive chronic kidney disease with stage 1 through sta Name Collection Type:: Clean-Voided Midstream Performed By: #### R ENAL, MG, [id number], CBCNO, URIC, PTH #### [address] Glucose Ql (U) 500 mg/dL High Normal [facility] Comment on above: Order Comment: Reaso n for Exam Hypertensive chronic kidney disease with stage 1 through sta Name Collection Type:: Clean-Voided Midstream Performed By: #### R ENAL, MG, [id number], CBCNO, URIC, PTH #### [address] Hyaline Casts,Urine 0-8 Normal 0-8 [facility] Comment on above: Order Comment: Reaso n for Exam Hypertensive chronic kidney disease with stage 1 through sta Name Collection Type:: Clean-Voided Midstream Result Comment: PERF ORMED BY: [place] [address] PATHOLOGIST SYSTEMS INTEGRATION ADVISOR JACQUELINE AZVALA M.D. Performed By: #### R ENAL, MG, [id number], CBCNO, URIC, PTH #### [facility] [address] Ketones Ql (U) Negative Normal Negative [facility] Comment on above: Order Comment: Reaso n for Exam Hypertensive chronic kidney disease with stage 1 through sta Name Collection Type:: Clean-Voided Midstream Performed By: #### R ENAL, MG, [id number], CBCNO, URIC, PTH #### [facility] [address] Leukocyte esterase Test strip Ql (U) 3+ High Negative [facility] Comment on above: Order Comment: Reaso n for Exam Hypertensive chronic kidney disease with stage 1 through sta Name Collection Type:: Clean-Voided Midstream Performed By: #### R ENAL, MG, [id number], CBCNO, URIC, PTH #### [facility] [address] Nitrite,Urine Negative Normal Negative [facility] Comment on above: Order Comment: Reaso n for Exam Hypertensive chronic kidney disease with stage 1 through sta Name Collection Type:: Clean-Voided Midstream Performed By: #### R ENAL, MG, [id number], CBCNO, URIC, PTH #### [facility] [address] Occult Blood,Urine Trace High Negative [facility] Comment on above: Order Comment: Reaso n for Exam Hypertensive chronic kidney disease with stage 1 through sta Name Collection Type:: Clean-Voided Midstream Performed By: #### R ENAL, MG, [id number], CBCNO, URIC, PTH #### [facility] [address] Protein,Urine Negative Normal Negative [facility] Comment on above: Order Comment: Reaso n for Exam Hypertensive chronic kidney disease with stage 1 through sta Name Collection Type:: Clean-Voided Midstream Performed By: #### R ENAL, MG, [id number], CBCNO, URIC, PTH #### [facility] [address] RBC,Urine 10-19 High 0-4 [facility] Comment on above: Order Comment: Reaso n for Exam Hypertensive chronic kidney disease with stage 1 through sta Name Collection Type:: Clean-Voided Midstream Performed By: #### R ENAL, MG, [id number], CBCNO, URIC, PTH #### [facility] [address] Specificy [place],Urine 1.015 Normal 1.001-1.030 [facility] Comment on above: Order Comment: Reaso n for Exam Hypertensive chronic kidney disease with stage 1 through sta Name Collection Type:: Clean-Voided Midstream Performed By: #### R ENAL, MG, [id number], CBCNO, URIC, PTH #### [address] Squamous Epithelial Cell,Urine 3-4 High 0-2 [facility] Comment on above: Order Comment: Reaso n for Exam Hypertensive chronic kidney disease with stage 1 through sta Name Collection Type:: Clean-Voided Midstream Performed By: #### R ENAL, MG, [id number], CBCNO, URIC, PTH #### [address] Urobilinogen,Urine Normal Normal Normal [facility] Comment on above: Order Comment: Reaso n for Exam Hypertensive chronic kidney disease with stage 1 through sta Name Collection Type:: Clean-Voided Midstream Performed By: #### R ENAL, MG, [id number], CBCNO, URIC, PTH #### [address] WBC,Urine 10-19 High 0-4 [facility] Comment on above: Order Comment: Reaso n for Exam Hypertensive chronic kidney disease with stage 1 through sta Name Collection Type:: Clean-Voided Midstream Performed By: #### R ENAL, MG, [id number], CBCNO, URIC, PTH #### [address] Erythrocyte distribution wid th [Ratio] by Automated countOrdered By: Dilan Nguyễn on 07-18-2023 Erythrocyte distribution width (RBC) [Ratio] 15.2 % Normal 11.9-15.3 [facility] Comment on above: Order Comment: Reaso n for Exam Hypertensive chronic kidney disease with stage 1 through sta Performed By: #### R ENAL, MG, [id number], CBCNO, URIC, PTH #### [facility] [address] [place] [id number] [place] Erythrocytes [#/volume] in B lood by Automated countOrdered By: Dilan Nguyễn on 07-18-2023 RBC (Bld) [#/Vol] 5.25 10*6/uL High 3.60-5.00 [facility] Comment on above: Order Comment: Reaso n for Exam Hypertensive chronic kidney disease with stage 1 through sta Performed By: #### R ENAL, MG, [id number], CBCNO, URIC, PTH #### [facility] [address] [place] [id number] [place] Glucose [Mass/volume] in Ser um or PlasmaOrdered By: Dilan Nguyễn on 07-18-2023 Glucose [Mass/Vol] 101 mg/dL High 70-100 [facility] Comment on above: ADA recommended refe rence rangeRandom Glucose Reference Range is dependent on time and content of last meal. Glucose of more than 200 mg/dL in a nonstressed, ambulatory subject supports the diagnosis of Diabetes Mellitus. Order Comment: Reaso n for Exam Hypertensive chronic kidney disease with stage 1 through sta Result Comment: [place] Glucose Reference Range is dependent on time and content of last meal. Glucose of more than 200 mg/dL in a nonstressed, ambulatory subject supports the diagnosis of Diabetes Mellitus. ADA recommended reference range Performed By: #### M G, [id number], URIC, RENAL #### [facility] [address] [place] [address] [place] Hematocrit [Volume Fraction] of Blood by Automated countOrdered By: Dilan Nguyễn on 07-18-2023 Hematocrit (Bld) [Volume fraction] 46.5 % High 34.0-46.4 [facility] Comment on above: Order Comment: Reaso n for Exam Hypertensive chronic kidney disease with stage 1 through sta Performed By: #### R ENAL, MG, [id number], CBCNO, URIC, PTH #### [facility] [address] Hemoglobin [Mass/volume] in BloodOrdered By: Dilan Nguyễn on 07-18-2023 Hemoglobin (Bld) [Mass/Vol] 15.1 g/dL Normal 11.8-15.4 [facility] Comment on above: Order Comment: Reaso n for Exam Hypertensive chronic kidney disease with stage 1 through sta Performed By: #### R ENAL, MG, [id number], CBCNO, URIC, PTH #### [facility] [address] [place] [address] Hemogram CBC Without Diffon 07-18-2023 Mean Corpuscular HGB Conc 32.5 g/dL Normal 32.0-35.0 [facility] Comment on above: Order Comment: Reaso n for Exam Hypertensive chronic kidney disease with stage 1 through sta Performed By: #### R ENAL, MG, [id number], CBCNO, URIC, PTH #### [facility] [address] [place] [address] WBC (Bld) [#/Vol] 9.9 10*3/uL Normal 3.8-11.6 [facility] Comment on above: Order Comment: Reaso n for Exam Hypertensive chronic kidney disease with stage 1 through sta Performed By: #### R ENAL, MG, [id number], CBCNO, URIC, PTH #### [address] Ketones Auto test strip (U) [Mass/Vol]Ordered By: Dilan Nguyễn on 07-18-2023 Ketones (U) [Mass/Vol] Negative Negative [facility] Laboratory - UrinalysisOrder ed By: Dilan Nguyễn on 07-18-2023 Hyaline casts LM Ql (Urine sed) 0-8 [LPF] 0-8 [facility] Leukocytes [#/volume] correc cristine for nucleated erythrocytes in Blood by Automated counOrdered By: Dilan Nguyễn on 07-18-2023 WBC corrected for nucl RBC Auto (Bld) [#/Vol] 9.9 10*3/uL 3.8-11.6 [facility] MCH [Entitic mass] by Automa cristine countOrdered By: Dilan Nguyễn on 07-18-2023 MCH (RBC) [Entitic mass] 28.8 pg Normal 24.7-34.3 [facility] Comment on above: Order Comment: Reaso n for Exam Hypertensive chronic kidney disease with stage 1 through sta Performed By: #### R ENAL, MG, [id number], CBCNO, URIC, PTH #### [facility] [address] MCHC Auto (RBC) [Mass/Vol]Or dered By: Dilan Nguyễn on 07-18-2023 MCHC (RBC) [Mass/Vol] 32.5 g/dL 32.0-35.[address] [facility] MCV [Entitic volume] by Auto mated countOrdered By: Dilan Nguyễn on 07-18-2023 MCV (RBC) [Entitic vol] 88.7 fL Normal 80-100 [facility] Comment on above: Order Comment: Reaso n for Exam Hypertensive chronic kidney disease with stage 1 through sta Performed By: #### R ENAL, MG, [id number], CBCNO, URIC, PTH #### [facility] [address] Magnesium [Mass/volume] in S hayder or PlasmaOrdered By: Dilan Nguyễn on 07-18-2023 Magnesium [Mass/Vol] 2.3 mg/dL Normal 1.9-2.7 [facility] Comment on above: Order Comment: Reaso n for Exam Hypertensive chronic kidney disease with stage 1 through sta Performed By: #### M G, [id number], URIC, RENAL #### [facility] [address] Nitrite Test strip Ql (U)Ord ered By: Dilan Nguyễn on 07-18-2023 Nitrite Ql (U) Negative Negative [facility] No Panel InformationOrdered By: Dilan Nguyễn on 07-18-2023 Estimated GFR (CKD-EPI) 16.276 mL/Min [facility] Creatinine Clearance (Chem N/A [facility] Parathyrin.intact [Mass/volu me] in Serum or PlasmaOrdered By: Dilan Nguyễn on 07-18-2023 Parathyrin.intact [Mass/Vol] 47.1 pg/mL [facility] Parathyroid Hormone Intacton 07-18-2023 Parathyroid Hormone Intact 47.1 pg/mL Normal [facility] Comment on above: Order Comment: Reaso n for Exam Hypertensive chronic kidney disease with stage 1 through sta Result Comment: PERF ORMED BY: [place] [address] PATHOLOGIST SYSTEMS INTEGRATION ADVISOR JACQUELINE ZAVALA M.D. Performed By: #### R ENAL, MG, [id number], CBCNO, URIC, PTH #### [facility] [address] [place] [address] [place] Phosphate [Mass/volume] in S hayder or PlasmaOrdered By: Dilan Nguyễn on 07-18-2023 Phosphate [Mass/Vol] 5.2 mg/dL High 2.5-4.5 [facility] Comment on above: Order Comment: Reaso n for Exam Hypertensive chronic kidney disease with stage 1 through sta Performed By: #### M G, [id number], URIC, RENAL #### [facility] [address] [place] [address] [place] Platelet mean volume [Entiti c volume] in Blood by Automated countOrdered By: Dilan Nguyễn on 07-18-2023 Platelet mean volume (Bld) [Entitic vol] 7.9 fL Normal 6.3-10.7 [facility] Comment on above: Order Comment: Reaso n for Exam Hypertensive chronic kidney disease with stage 1 through sta Result Comment: PERF ORMED BY: [address] [address] PATHOLOGIST SYSTEMS INTEGRATION ADVISOR JACQUELINE ZAVALA M.D. Performed By: #### R ENAL, MG, [id number], CBCNO, URIC, PTH #### [facility] [address] [place] [address] [place] Platelets [#/volume] in Bloo d by Automated countOrdered By: Dilan Nguyễn on 07-18-2023 Platelets (Bld) [#/Vol] 361 10*3/uL Normal 150-450 [facility] Comment on above: Order Comment: Reaso n for Exam Hypertensive chronic kidney disease with stage 1 through sta Performed By: #### R ENAL, MG, [id number], CBCNO, URIC, PTH #### [facility] [address] Potassium [Moles/volume] in Serum or PlasmaOrdered By: Dilan Nguyễn on 07-18-2023 Potassium [Moles/Vol] 4.6 mmol/L Normal 3.5-5.[address] [facility] Comment on above: Order Comment: Reaso n for Exam Hypertensive chronic kidney disease with stage 1 through sta Performed By: #### M G, [id number], URIC, RENAL #### [facility] [address] Protein Auto test strip (U) [Mass/Vol]Ordered By: Dilan Nguyễn on 07-18-2023 Protein (U) [Mass/Vol] Negative Negative [facility] Protein Creat Ratio Ur Rando mon 07-18-2023 Creatinine, Urine (Random) 65.0 mg/dL High 11.0-20.0 [facility] Comment on above: Order Comment: Reaso n for Exam Hypertensive chronic kidney disease with stage 1 through sta Performed By: #### R ENAL, MG, [id number], CBCNO, URIC, PTH #### [facility] [address] [place] [address] [facility] Protein, Urine (Random) < 4 Normal 0-9 [facility] Comment on above: Order Comment: Reaso n for Exam Hypertensive chronic kidney disease with stage 1 through sta Performed By: #### R ENAL, MG, [id number], CBCNO, URIC, PTH #### [facility] [address] [place] [address] [facility] Urine Protein/Creatinine Ratio Not performed Normal 0-200 [facility] Comment on above: Order Comment: Reaso n for Exam Hypertensive chronic kidney disease with stage 1 through sta Result Comment: PERF ORMED BY: [place] [address] PATHOLOGIST SYSTEMS INTEGRATION ADVISOR JACQUELINE ZAVALA M.D. Performed By: #### R ENAL, MG, [id number], CBCNO, URIC, PTH #### [facility] [address] [place] [address] [place] Protein [Mass/volume] in Uri neOrdered By: Dilan Heathr on 07-18-2023 Protein (U) [Mass/Vol] mg/dL 0-9 [facility] Renal Function Panelon 07-17 Albumin [Mass/Vol] 4.1 g/dL Normal 3.5-5.7 [facility] Comment on above: Order Comment: Reaso n for Exam Hypertensive chronic kidney disease with stage 1 through sta Performed By: #### M G, [id number], URIC, RENAL #### [facility] [address] [place] [address] [place] GFR/1.73 sq M.predicted MDRD (S/P/Bld) [Vol rate/Area] 16.276 mL/min/{1.73_m2} Normal [facility] Comment on above: Order Comment: Reaso n for Exam Hypertensive chronic kidney disease with stage 1 through sta Performed By: #### M G, [id number], URIC, RENAL #### [facility] [address] [place] [address] [place] Serum or plasma anion gap de terminationOrdered By: Dilan Sergio on 07-18-2023 Anion gap [Moles/Vol] 12.6 mmol/L Normal 6.0-15.0 [facility] Comment on above: Order Comment: Reaso n for Exam Hypertensive chronic kidney disease with stage 1 through sta Performed By: #### M G, [id number], URIC, RENAL #### [facility] [address] [place] [id number] [place] Sodium [Moles/volume] in Ser um or PlasmaOrdered By: Dilan Sergio on 07-18-2023 Sodium [Moles/Vol] 136 mmol/L Normal 136-145 [facility] Comment on above: Order Comment: Reaso n for Exam Hypertensive chronic kidney disease with stage 1 through sta Performed By: #### M G, [id number], URIC, RENAL #### [facility] [address] Specific gravity Auto test s trip (U) [Rel density]Ordered By: Dilan Nguyễn on 07-18-2023 Specific gravity (U) [Rel density] 1.015 1.001-1.030 [facility] Squamous epithelial cells de tection in urine sediment by light microscopyOrdered By: Dilan Nguyễn on 07-18-2023 Epithelial cells.squamous LM Ql (Urine sed) 3-4 [HPF] 0-2 [facility] Urate [Mass/volume] in Serum or PlasmaOrdered By: Dilan Nguyễn on 07-18-2023 Urate [Mass/Vol] 5.4 mg/dL Normal 2.3-6.6 [facility] Comment on above: Order Comment: Reaso n for Exam Hypertensive chronic kidney disease with stage 1 through sta Performed By: #### M G, [id number], URIC, RENAL #### [facility] [address] [place] [address] Urea nitrogen [Mass/volume] in Serum or PlasmaOrdered By: Dilan Nguyễn on 07-18-2023 Urea nitrogen [Mass/Vol] 43 mg/dL High 7-25 [facility] Comment on above: Order Comment: Reaso n for Exam Hypertensive chronic kidney disease with stage 1 through sta Performed By: #### M G, [id number], URIC, RENAL #### [facility] [address] [place] [address] Urine Cultureon 07-18-2023 Bacteria identified Cx Nom (U) <9,000 colonies/ml mixed bacterial skin contaminants 2 Days PERFORMED BY: [place] [address] PATHOLOGIST SYSTEMS INTEGRATION ADVISOR JACQUELINE ZAVALA M.D. Normal [facility] Comment on above: Performed By: #### R ENAL, MG, [id number], CBCNO, URIC, PTH #### [facility] [address] [place] [address] Urine bacteria detection by automated methodOrdered By: Dilan Nguyễn on 07-18-2023 Bacteria Auto Ql (U) None seen None Seen [facility] Urine clarity by refractomet ry automatedOrdered By: Dilan Nguyễn on 07-18-2023 Clarity Refractometry automated (U) Clear Clear [facility] Urine culture routineOrdered By: Dilan Nguyễn on 07-18-2023 Bacteria identified Cx Nom (U) 2 Days [facility] Urine glucose measurement by automated test strip (mass/volume)Ordered By: Dilan Nguyễn on 07-18-2023 Glucose Auto test strip (U) [Mass/Vol] 500 mg/dL Normal [facility] Urine hemoglobin detection b y automated test stripOrdered By: Dilan Nguyễn on 07-18-2023 Hemoglobin Auto test strip Ql (U) Trace Negative [facility] Urine leukocyte esterase det ection by automated test stripOrdered By: Dilan Nguyễn on 07-18-2023 Leukocyte esterase Auto test strip Ql (U) 3+ Negative [facility] Urine pH measurement by auto mated test stripOrdered By: Dilan Nguyễn on 07-18-2023 pH (U) 5.5 [pH] Normal 5.0-9.0 [facility] Comment on above: Order Comment: Reaso n for Exam Hypertensive chronic kidney disease with stage 1 through sta Name Collection Type:: Clean-Voided Midstream Performed By: #### R ENAL, MG, [id number], CBCNO, URIC, PTH #### [address] Urine protein/creatinine rat ioOrdered By: Dilan Nguyễn on 07-18-2023 Protein/Creatinine (U) [Ratio] TNP [facility] Comment on above: Test not performed Urobilinogen Auto test strip (U) [Mass/Vol]Ordered By: Dilan Nguyễn on 07-18-2023 Urobilinogen (U) [Mass/Vol] Normal mg/dL Normal [facility] Vitamin D 25 Hydroxy Totalon 07-18-2023 Vitamin D 25 Hydroxy Total 47.8 ng/mL Normal 30-100 [facility] Comment on above: Order Comment: Reaso n for Exam Hypertensive chronic kidney disease with stage 1 through sta Result Comment: YAZMIN MIN D STATUS 25([place])VITAMIN D RANGE (ng/mL) Deficient <20 Insufficient 20 to <30 Sufficient 30 to 100 Reference: Mitzy Gutiérrez, Brandt CONNER, et al. Evaluation,treatment, and prevention of vitamin D deficiency; an Endocrine Society clinical practice guideline. JCEM. 2010; 96(7):1911-30. PERFORMED BY: [facility] [address] [place] [id number] PATHOLOGIST SYSTEMS INTEGRATION ADVISOR JACQUELINE ZAVALA M.D. Performed By: #### M G, [id number], URIC, RENAL #### [facility] [address] Vitamin D+Metabolites [Mass/ volume] in Serum or PlasmaOrdered By: Dilan Nguyễn on 07-18-2023 Vitamin D+Metabolites [Mass/Vol] 47.8 ng/mL 30-100 [facility] Comment on above: VITAMIN D STATUS 25( [place])VITAMIN D RANGE (ng/mL) Deficient <20 Insufficient 20 to <30Sufficient 30 to 100Reference: Mitzy Gutiérrez, Brandt CONNER, et al. Evaluation,treatment, and prevention of vitamin D deficiency; an Endocrine Society clinical practice guideline. JCEM. 2010; 96(7):1911-30. Dermatopathologyon 3 Dermatopathology Name CHLOE PICKENS Pathologist: GUS VIDAL MD Date of Procedure: 08/26/2022 Date Received: 08/27/2022 Date Reported 08/28/2022 Submitting Physician: REYNA RDZ MD Location: [facility] Other External # FINAL DIAGNOSIS SKIN, L UPPER BACK, EXCISION: CHANGES CONSISTENT WITH PREVIOUS PROCEDURE, INKED MARGINS FREE IN PLANES OF SECTIONS EXAMINED WITHOUT RESIDUAL ATYPICAL MELANOCYTIC NEOPLASM SEEN. Electronically Signed Out by GUS VIDAL M.D. Electronically Signed Out By GUS VIDAL MD/[facility] By the signature on this report, the individual or group listed as making the Final Interpretation/Diagnosi s certifies that they have reviewed this case. Diagnostic interpretation performed at [facility] [address] [place] [address], [place] [address] Microscopic Description: Microscopic examination reveals a specimen that extends into the subcutaneous fat. An area with horizontally oriented collagen and vertically oriented vessels is present. Clinical History: R/O clear margins [id number]. Excision. (Aleksandr) Specimens Submitted As: A: SKIN, L UPPER BACK Gross Description: Received in formalin is a rosas ellipsoid piece of skin measuring [id number]. The specimen is inked and embedded in toto in three blocks. The tips are in block A1. ink/08/27/2022 [facility] [address] [facility] Comment on above: Performed By: #### D #### Dermatopathology Albumin [Mass/volume] in Ser um or Plasma by Bromocresol green (BCG) dye binding methoOrdered By: Dilan Nguyễn on 07-13-2022 Albumin BCG dye [Mass/Vol] 4.1 g/dL 3.5-5.7 [facility] Automated erythrocytes count in urine sediment (number/area)Ordered By: Dilan Nguyễn on 07-13-2022 RBC Auto (Urine sed) [#/Area] 0-1 [HPF] 0-4 [facility] Automated leukocytes count i n urine sediment (number/area)Ordered By: Dilan Nguyễn on 07-13-2022 WBC Auto (Urine sed) [#/Area] 10-19 [HPF] 0-4 [facility] Bilirubin Test strip Ql (U)O rdered By: Dilan Nguyễn on 07-13-2022 Bilirubin Ql (U) Negative Negative [facility] Calcium [Mass/volume] in Ser um or PlasmaOrdered By: Dilan Nguyễn on 07-13-2022 Calcium [Mass/Vol] 9.4 mg/dL 8.6-10.3 [facility] Carbon dioxide, total [Moles /volume] in Serum or PlasmaOrdered By: Dilan Nguyễn on 07-13-2022 CO2 [Moles/Vol] 24.7 mmol/L 21.0-31.0 [facility] Chloride [Moles/volume] in S hayder or PlasmaOrdered By: Dilan Nguyễn on 07-13-2022 Chloride [Moles/Vol] 109 mmol/L 98-107 [facility] Color Auto (U)Ordered By: Ab halie Nguyễn on 07-13-2022 Color (U) Yellow Yellow [facility] Creatinine [Mass/volume] in Serum or PlasmaOrdered By: Dilan Nguyễn on 07-13-2022 Creatinine [Mass/Vol] 1.63 mg/dL 0.60-1.20 [facility] Erythrocyte distribution wid th Auto (RBC) [Ratio]Ordered By: Dilan Nguyễn on 07-13-2022 Erythrocyte distribution width (RBC) [Ratio] 14.9 % 11.9-15.3 [facility] Glucose [Mass/volume] in Ser um or PlasmaOrdered By: Dilan Nguyễn on 07-13-2022 Glucose [Mass/Vol] 76 mg/dL 74-109 [facility] Comment on above: ADA recommended refe rence rangeRandom Glucose Reference Range is dependent on time and content of last meal. Glucose of more than 200 mg/dL in a nonstressed, ambulatory subject supports the diagnosis of Diabetes Mellitus. Hematocrit Auto (Bld) [Volum e fraction]Ordered By: Dilan Nguyễn on 07-13-2022 Hematocrit (Bld) [Volume fraction] 42.1 % 34.0-46.4 [facility] Hemoglobin [Mass/volume] in BloodOrdered By: Dilan Nguyễn on 07-13-2022 Hemoglobin (Bld) [Mass/Vol] 13.9 g/dL 11.8-15.4 [facility] Ketones Auto test strip (U) [Mass/Vol]Ordered By: Dilan Nguyễn on 07-13-2022 Ketones (U) [Mass/Vol] Negative Negative [facility] - Chemistry and C hemistry - challengeOrdered By: Dilan Nguyễn on 07-13-2022 GFR/1.73 sq M.predicted MDRD (S/P/Bld) [Vol rate/Area] 33.511 mL/min/{1.73_m2} [facility] - UrinalysisOrder ed By: Dilan Nguyễn on 07-13-2022 Hyaline casts LM Ql (Urine sed) None seen [LPF] 0-8 [facility] Leukocytes [#/volume] correc cristine for nucleated erythrocytes in Blood by Automated counOrdered By: Dilan Nguyễn on 07-13-2022 WBC corrected for nucl RBC Auto (Bld) [#/Vol] 10.9 10*3/uL 3.8-11.6 [facility] MCH Auto (RBC) [Entitic mass ]Ordered By: Dilan Nguyễn on 07-13-2022 MCH (RBC) [Entitic mass] 29.7 pg 24.7-34.3 [facility] MCHC Auto (RBC) [Mass/Vol]Or dered By: Dilan Nguyễn on 07-13-2022 MCHC (RBC) [Mass/Vol] 33.1 g/dL 32.0-35.[address] [facility] MCV Auto (RBC) [Entitic vol] Ordered By: Dilan Nguyễn on 07-13-2022 MCV (RBC) [Entitic vol] 89.8 fL 80-100 [facility] Magnesium [Mass/volume] in S hayder or PlasmaOrdered By: Dilan Nguyễn on 07-13-2022 Magnesium [Mass/Vol] 2.1 mg/dL 1.9-2.7 [facility] Nitrite Test strip Ql (U)Ord ered By: Dilan Nguyễn on 07-13-2022 Nitrite Ql (U) Negative Negative [facility] No Panel InformationOrdered By: Dilan Nguyễn on 07-13-2022 Pharmacy Creatinine Clearance (Chem N/A [facility] Parathyrin.intact [Mass/volu me] in Serum or PlasmaOrdered By: Dilan Nguyễn on 07-13-2022 Parathyrin.intact [Mass/Vol] 38.3 pg/mL 12-88 [facility] Phosphate [Mass/volume] in S hayder or PlasmaOrdered By: Dilan Nguyễn on 07-13-2022 Phosphate [Mass/Vol] 4.1 mg/dL 3.7-7.2 [facility] Platelet mean volume Auto (B ld) [Entitic vol]Ordered By: Dilan Nguyễn on 07-13-2022 Platelet mean volume (Bld) [Entitic vol] 9.0 fL 6.3-10.7 [facility] Platelets Auto (Bld) [#/Vol] Ordered By: Dilan Nguyễn on 07-13-2022 Platelets (Bld) [#/Vol] 363 10*3/uL 150-450 [facility] Potassium [Moles/volume] in Serum or PlasmaOrdered By: Dilan Nguyễn on 07-13-2022 Potassium [Moles/Vol] 4.2 mmol/L 3.5-5.[address] [facility] Protein Auto test strip (U) [Mass/Vol]Ordered By: Dilan Nguyễn on 07-13-2022 Protein (U) [Mass/Vol] Negative Negative [facility] RBC Auto (Bld) [#/Vol]Ordere d By: Dilan Nguyễn on 07-13-2022 RBC (Bld) [#/Vol] 4.69 10*6/uL 3.60-5.00 [facility] Serum or plasma anion gap de terminationOrdered By: Dilan Nguyễn on 07-13-2022 Anion gap [Moles/Vol] 11.5 mmol/L 6.0-15.0 [facility] Sodium [Moles/volume] in Ser um or PlasmaOrdered By: Dilan Nguyễn on 07-13-2022 Sodium [Moles/Vol] 141 mmol/L 136-145 [facility] Specific gravity Auto test s trip (U) [Rel density]Ordered By: Dilan Nguyễn on 07-13-2022 Specific gravity (U) [Rel density] 1.019 1.001-1.030 [facility] Squamous epithelial cells de tection in urine sediment by light microscopyOrdered By: Dilan Nguyễn on 07-13-2022 Epithelial cells.squamous LM Ql (Urine sed) 3-4 [HPF] 0-2 [facility] Urate [Mass/volume] in Serum or PlasmaOrdered By: Dilan Nguyễn on 07-13-2022 Urate [Mass/Vol] 5.3 mg/dL 2.3-6.6 [facility] Urea nitrogen [Mass/volume] in Serum or PlasmaOrdered By: Dilan Nguyễn on 07-13-2022 Urea nitrogen [Mass/Vol] 34 mg/dL 7-25 [facility] Urine bacteria detection by automated methodOrdered By: Dilan Nguyễn on 07-13-2022 Bacteria Auto Ql (U) None seen None Seen [facility] Urine clarity by refractomet ry automatedOrdered By: Dilan Nguyễn on 07-13-2022 Clarity Refractometry automated (U) Clear Clear [facility] Urine glucose measurement by automated test strip (mass/volume)Ordered By: Dilan Nguyễn on 07-13-2022 Glucose Auto test strip (U) [Mass/Vol] >=1000 mg/dL Normal [facility] Urine hemoglobin detection b y automated test stripOrdered By: Dilan Nguyễn on 07-13-2022 Hemoglobin Auto test strip Ql (U) Negative Negative [facility] Urine leukocyte esterase det ection by automated test stripOrdered By: Dilan Nguyễn on 07-13-2022 Leukocyte esterase Auto test strip Ql (U) 2+ Negative [facility] Urobilinogen Auto test strip (U) [Mass/Vol]Ordered By: Dilan Nguyễn on 07-13-2022 Urobilinogen (U) [Mass/Vol] Normal mg/dL Normal [facility] Vitamin D+Metabolites [Mass/ volume] in Serum or PlasmaOrdered By: Dilan Nguyễn on 07-13-2022 Vitamin D+Metabolites [Mass/Vol] 48.0 ng/mL 30-100 [facility] Comment on above: VITAMIN D STATUS 25( [place])VITAMIN D RANGE (ng/mL) Deficient <20 Insufficient 20 to <30Sufficient 30 to 100Reference: Brittni MF,Mitzy NC, Brandt CONNER, et al. Evaluation,treatment, and prevention of vitamin D deficiency; an Endocrine Society clinical practice guideline. JCEM. 2010; 96(7):1911-30. pH Auto test strip (U)Ordere d By: Dilan Nguyễn on 07-13-2022 pH (U) 5.5 [pH] 5.0-9.0 [facility] Dermatopathologyon 3 Dermatopathology Name CHLOE PICKENS Pathologist: GUS VIDAL MD Date of Procedure: 07/10/2022 Date Received: 07/11/2022 Date Reported 07/12/2022 Submitting Physician: REYNA RDZ MD Location: [facility] Copy To/Referring/Attending: HUNTER BHAGAT MD Other External # FINAL DIAGNOSIS A. SKIN, L UPPER BACK, SHAVE BIOPSY: MODERATELY TO SEVERELY DYSPLASTIC JUNCTIONAL NEVUS, PRESENT ON THE DEEP AND PERIPHERAL MARGIN, SEE NOTE. Note: A complete re-excision is recommended. B. SKIN, L MID BACK, SHAVE BIOPSY: MILDLY DYSPLASTIC COMPOUND NEVUS, PRESENT ON THE DEEP MARGIN. Electronically Signed Out by GUS VIDAL M.D. Electronically Signed Out By GUS VIDAL MD/[facility] By the signature on this report, the individual or group listed as making the Final Interpretation/Diagnosi s certifies that they have reviewed this case. Diagnostic interpretation performed [facility] [address] [facility] [address] Microscopic Description: A. Microscopic analysis shows an asymmetric proliferation of melanocytes, with lentiginous hyperplasia of epidermis. In addition to melanocytes that nest irregularly along the dermal-epidermal junction, other features of dysplasia include melanocyte bridging, papillary dermal fibroplasia, melanophages, and inflammatory cells in papillary dermis. The melanocytes show random cytologic atypia. B. Microscopic analysis shows an asymmetric proliferation of melanocytes, with lentiginous hyperplasia of epidermis. In addition to melanocytes that nest irregularly along the dermal-epidermal junction, other features of dysplasia include a shoulder of junctional nests of melanocytes that extend beyond the dermal nests, melanocyte bridging, papillary dermal fibroplasia, melanophages, and inflammatory cells in papillary dermis. The melanocytes in epidermis show random cytologic atypia. Clinical History: A: Irregular pigmented macule. DDX: dysplastic nevus, MM, lentigo. Shave Biopsy. B: Irregular pigmented macule. DDX: dysplastic nevus, MM, Lentigo and SK. Hx MM. Shave Biopsy. ([facility]). Specimens Submitted As: A: SKIN, L UPPER BACK B: SKIN, L MID BACK Gross Description: A: Received in formalin is one rosas-brown piece of skin measuring 14x3l1bl. The specimen is inked and embedded in toto. B: Received in formalin is one rosas-brown piece of skin measuring [id number]. The specimen is inked and embedded in toto. dcp/07/11/2022 [facility] [place] [id number] [place] [address] [id number] Normal [facility] Comment on above: Performed By: #### D #### Dermatopathology Albumin [Mass/volume] in Ser um or PlasmaOrdered By: Dilan Nguyễn on 05-13-2022 Albumin [Mass/Vol] 3.6 g/dL 3.2-5.5 [facility] Creatinine and Glomerular fi ltration rate.predicted panel (S/P/Bld)Ordered By: Dilan Nguyễn on 05-13-2022 Creatinine [Mass/Vol] 1.77 mg/dL 0.44-1.[address] [facility] Estimated glomerular filtrat ion rate (GFR) non- AmericanOrdered By: Dilan Nguyễn on 05-13-2022 GFR/1.73 sq M.predicted among non-blacks MDRD (S/P/Bld) [Vol rate/Area] 28 mL/Min [facility] - Chemistry and C hemistry - challengeOrdered By: Dilan Nguyễn on 05-13-2022 Magnesium [Mass/Vol] 2.0 mg/dL 1.6-2.6 [facility] Magnesiumon 05-13-2022 Magnesium [Mass/Vol] 2.7306359 mg/dL Normal 1.6- 2.6 mg/dL [employer] Other No Panel InformationOrdered By: Dilan Nguyễn on 05-13-2022 Estimated GFR () 34 mL/Min [facility] Comment on above: GFR estimated refere nce range: According to KDOQI guidelines, <60 ml/min/1.73m2 is sufficient to diagnose a patient with chronic kidney disease. Pharmacy Creatinine Clearance (Chem N/A [facility] Phosphate [Mass/volume] in S hayder or PlasmaOrdered By: Dilan Nguyễn on 05-13-2022 Phosphate [Mass/Vol] 3.9 mg/dL 2.5-4.6 [facility] Renal Function Panelon 05-13 Albumin [Mass/Vol] 3.964398 g/dL Normal 3.2-5.5 g/dL [facility] Other Calcium [Mass/Vol] 9.2874656 mg/dL Normal 8.2-10 .2 mg/dL [facility] Other CO2 [Moles/Vol] 25.65442318 mmol/L Normal 22.0-3 0.0 mmol/L [facility] Other Creatinine [Mass/Vol] 1.16809622 mg/dL High 0. 44-1.03 mg/dL [facility] Other Phosphate [Mass/Vol] 3.5912400 mg/dL Normal 2.5- 4.6 mg/dL [facility] Other Potassium [Moles/Vol] 4.64165730 mmol/L Normal 3 .5-5.1 mmol/L [facility] Other Renal Function Panel 28 [employer] Other Renal Function Panel 34 [employer] Other Serum or plasma anion gap de terminationOrdered By: Dilan Nguyễn on 05-13-2022 Anion gap [Moles/Vol] 11.0 mmol/L 6.0-15.0 [facility] Serum or plasma calcium xavier urement (mass/volume)Ordered By: Dilan Nguyễn on 05-13-2022 Calcium [Mass/Vol] 9.2 mg/dL 8.2-10.2 [facility] Serum or plasma chloride bisi surement (moles/volume)Ordered By: Dilan Nguyễn on 05-13-2022 Chloride [Moles/Vol] 105 mmol/L 95-114 [facility] Serum or plasma glucose xavier urement (mass/volume)Ordered By: Dilan Nguyễn on 05-13-2022 Glucose [Mass/Vol] 189 mg/dL 70-100 [facility] Comment on above: ADA recommended refe rence rangeRandom Glucose Reference Range is dependent on time and content of last meal. Glucose of more than 200 mg/dL in a nonstressed, ambulatory subject supports the diagnosis of Diabetes Mellitus. Serum or plasma potassium me asurement (moles/volume)Ordered By: Dilan Nguyễn on 05-13-2022 Potassium [Moles/Vol] 4.5 mmol/L 3.5-5.[address] [facility] Serum or plasma sodium measu rement (moles/volume)Ordered By: Dilan Nguyễn on 05-13-2022 Sodium [Moles/Vol] 137 mmol/L 136-146 [facility] Serum or plasma total carbon dioxide measurement (moles/volume)Ordered By: Dilan Nguyễn on 05-13-2022 CO2 [Moles/Vol] 25.5 mmol/L 22.0-30.0 [facility] Serum or plasma urea nitroge n measurement (mass/volume)Ordered By: Dilan Nguyễn on 05-13-2022 Urea nitrogen [Mass/Vol] 27 mg/dL 9- [facility] Body fluid albumin measureme nt (mass/volume)Ordered By: Dilan Nguyễn on 03-06-2022 Albumin (Body fld) [Mass/Vol] 3.8 g/dL 3.2-5.5 [facility] Creatinine and Glomerular fi ltration rate.predicted panel (S/P/Bld)Ordered By: Dilan Nguyễn on 03-06-2022 Creatinine [Mass/Vol] 1.69 mg/dL 0.44-1.[address] [facility] Estimated glomerular filtrat ion rate (GFR) non- AmericanOrdered By: Dilan Nguyễn on 03-06-2022 GFR/1.73 sq M.predicted among non-blacks MDRD (S/P/Bld) [Vol rate/Area] 30 mL/Min [facility] - Chemistry and C hemistry - challengeOrdered By: Dilan Nguyễn on 03-06-2022 Magnesium [Mass/Vol] 2.1 mg/dL 1.6-2.6 [facility] No Panel InformationOrdered By: Dilan Nguyễn on 03-06-2022 Estimated GFR () 36 mL/Min [facility] Comment on above: GFR estimated refere nce range: According to KDOQI guidelines, <60 ml/min/1.73m2 is sufficient to diagnose a patient with chronic kidney disease. Pharmacy Creatinine Clearance (Chem N/A [facility] Phosphate [Mass/volume] in S hayder or PlasmaOrdered By: Dilan Nguyễn on 03-06-2022 Phosphate [Mass/Vol] 4.3 mg/dL 2.5-4.6 [facility] Serum or plasma anion gap de terminationOrdered By: Dilan Nguyễn on 03-06-2022 Anion gap [Moles/Vol] 15.9 mmol/L 6.0-15.0 [facility] Serum or plasma calcium xavier urement (mass/volume)Ordered By: Dilan Nguyễn on 03-06-2022 Calcium [Mass/Vol] 9.8 mg/dL 8.2-10.2 [facility] Serum or plasma chloride bisi surement (moles/volume)Ordered By: Dilan Nguyễn on 03-06-2022 Chloride [Moles/Vol] 100 mmol/L 95-114 [facility] Serum or plasma glucose xavier urement (mass/volume)Ordered By: Dilan Nguyễn on 03-06-2022 Glucose [Mass/Vol] 84 mg/dL 70-100 [facility] Comment on above: ADA recommended refe rence rangeRandom Glucose Reference Range is dependent on time and content of last meal. Glucose of more than 200 mg/dL in a nonstressed, ambulatory subject supports the diagnosis of Diabetes Mellitus. Serum or plasma potassium me asurement (moles/volume)Ordered By: Dilan Nguyễn on 03-06-2022 Potassium [Moles/Vol] 4.5 mmol/L 3.5-5.[address] [facility] Serum or plasma sodium measu rement (moles/volume)Ordered By: Dilan Nguyễn on 03-06-2022 Sodium [Moles/Vol] 139 mmol/L 136-146 [facility] Serum or plasma total carbon dioxide measurement (moles/volume)Ordered By: Dilan Nguyễn on 03-06-2022 CO2 [Moles/Vol] 27.6 mmol/L 22.0-30.0 [facility] Serum or plasma urea nitroge n measurement (mass/volume)Ordered By: Dilan Nguyễn on 03-06-2022 Urea nitrogen [Mass/Vol] 33 mg/dL 9-23 [facility] Urine culture routineOrdered By: Dilan Nguyễn on 02-22-2022 Bacteria identified Cx Nom (U) 2 Days [facility] Automated erythrocytes count in urine sediment (number/area)Ordered By: Dilan Nguyễn on 02-20-2022 RBC Auto (Urine sed) [#/Area] None seen [HPF] 0-4 [facility] Automated leukocytes count i n urine sediment (number/area)Ordered By: Dilan Nguyễn on 02-20-2022 WBC Auto (Urine sed) [#/Area] 5-9 [HPF] 0-4 [facility] Bilirubin Test strip Ql (U)O rdered By: Dilan Nguyễn on 02-20-2022 Bilirubin Ql (U) Negative Negative [facility] Body fluid albumin measureme nt (mass/volume)Ordered By: Dilan Nguyễn on 02-20-2022 Albumin (Body fld) [Mass/Vol] 3.5 g/dL 3.2-5.5 [facility] Color Auto (U)Ordered By: Ab halie Nguyễn on 02-20-2022 Color (U) Yellow Yellow [facility] Creatinine [Mass/volume] in UrineOrdered By: Dilan Nguyễn on 02-20-2022 Creatinine (U) [Mass/Vol] 33.4 mg/dL [facility] Comment on above: No reference range e stablished Creatinine and Glomerular fi ltration rate.predicted panel (S/P/Bld)Ordered By: Dilan Nguyễn on 02-20-2022 Creatinine [Mass/Vol] 1.69 mg/dL 0.44-1.[address] [facility] Erythrocyte distribution wid th Auto (RBC) [Ratio]Ordered By: Dilan Nguyễn on 02-20-2022 Erythrocyte distribution width (RBC) [Ratio] 14.7 % 11.9-15.3 [facility] Estimated glomerular filtrat ion rate (GFR) non- AmericanOrdered By: Dilan Nguyễn on 02-20-2022 GFR/1.73 sq M.predicted among non-blacks MDRD (S/P/Bld) [Vol rate/Area] 30 mL/Min [facility] Hematocrit Auto (Bld) [Volum e fraction]Ordered By: Dilan Nguyễn on 02-20-2022 Hematocrit (Bld) [Volume fraction] 44.9 % 34.0-46.4 [facility] Hemoglobin [Mass/volume] in BloodOrdered By: Dilan Nguyễn on 02-20-2022 Hemoglobin (Bld) [Mass/Vol] 14.5 g/dL 11.8-15.4 [facility] Ketones Auto test strip (U) [Mass/Vol]Ordered By: Dilan Nguyễn on 02-20-2022 Ketones (U) [Mass/Vol] Negative Negative [facility] Laboratory - Chemistry and C hemistry - challengeOrdered By: Dilan Nguyễn on 02-20-2022 Magnesium [Mass/Vol] 1.9 mg/dL 1.6-2.6 [facility] - UrinalysisOrder ed By: Dilan Nguyễn on 02-20-2022 Hyaline casts LM Ql (Urine sed) 0-8 [LPF] 0-8 [facility] MCH Auto (RBC) [Entitic mass ]Ordered By: Dilan Nguyễn on 02-20-2022 MCH (RBC) [Entitic mass] 28.8 pg 24.7-34.3 [facility] MCHC Auto (RBC) [Mass/Vol]Or dered By: Dilan Nguyễn on 02-20-2022 MCHC (RBC) [Mass/Vol] 32.3 g/dL 32.0-35.[address] [facility] MCV Auto (RBC) [Entitic vol] Ordered By: Dilan Nguyễn on 02-20-2022 MCV (RBC) [Entitic vol] 89.2 fL 80-100 [facility] Nitrite Test strip Ql (U)Ord ered By: Dilan Nguyễn on 02-20-2022 Nitrite Ql (U) Negative Negative [facility] No Panel InformationOrdered By: Dilan Nguyễn on 02-20-2022 25-Hydroxy Vitamin D Total 43.0 ng/mL 30-100 [facility] Comment on above: VITAMIN D STATUS 25( [place])VITAMIN D RANGE (ng/mL) Deficient <20 Insufficient 20 to <30Sufficient 30 to 100Reference: Brittni MF,Mitzy NC, Brandt CONNER, et al. Evaluation,treatment, and prevention of vitamin D deficiency; an Endocrine Society clinical practice guideline. JCEM. 2010; 96(7):1911-30. Estimated GFR () 36 mL/Min [facility] Comment on above: GFR estimated refere nce range: According to KDOQI guidelines, <60 ml/min/1.73m2 is sufficient to diagnose a patient with chronic kidney disease. Pharmacy Creatinine Clearance (Chem N/A [facility] Phosphate [Mass/volume] in S hayder or PlasmaOrdered By: Dilan Nguyễn on 02-20-2022 Phosphate [Mass/Vol] 3.9 mg/dL 2.5-4.6 [facility] Platelet mean volume Auto (B ld) [Entitic vol]Ordered By: Dilan Nguyễn on 02-20-2022 Platelet mean volume (Bld) [Entitic vol] 8.6 fL 6.3-10.7 [facility] Platelets Auto (Bld) [#/Vol] Ordered By: Dilan Nguyễn on 02-20-2022 Platelets (Bld) [#/Vol] 327 10*3/uL 150-450 [facility] Protein Auto test strip (U) [Mass/Vol]Ordered By: Dilan Nguyễn on 02-20-2022 Protein (U) [Mass/Vol] Negative Negative [facility] Protein [Mass/volume] in Uri neOrdered By: Dilan Nguyễn on 02-20-2022 Protein (U) [Mass/Vol] mg/dL 0-9 [facility] RBC Auto (Bld) [#/Vol]Ordere d By: Dilan Heathr on 02-20-2022 RBC (Bld) [#/Vol] 5.04 10*6/uL 3.60-5.00 [facility] Serum or plasma anion gap de terminationOrdered By: Dilan Nguyễn on 02-20-2022 Anion gap [Moles/Vol] 10.6 mmol/L 6.0-15.0 [facility] Serum or plasma calcium xavier urement (mass/volume)Ordered By: Dilan Nguyễn on 02-20-2022 Calcium [Mass/Vol] 9.1 mg/dL 8.2-10.2 [facility] Serum or plasma chloride bisi surement (moles/volume)Ordered By: Dilan Nguyễn on 02-20-2022 Chloride [Moles/Vol] 105 mmol/L 95-114 [facility] Serum or plasma glucose xavier urement (mass/volume)Ordered By: Dilan Nguyễn on 02-20-2022 Glucose [Mass/Vol] 116 mg/dL 70-100 [facility] Comment on above: ADA recommended refe rence rangeRandom Glucose Reference Range is dependent on time and content of last meal. Glucose of more than 200 mg/dL in a nonstressed, ambulatory subject supports the diagnosis of Diabetes Mellitus. Serum or plasma intact parat hyroid hormone measurement (mass/volume)Ordered By: Dilan Nugyễn on 02-20-2022 Parathyrin.intact [Mass/Vol] 48.5 pg/mL 12 [facility] Serum or plasma potassium me asurement (moles/volume)Ordered By: Dilan Nguyễn on 02-20-2022 Potassium [Moles/Vol] 3.9 mmol/L 3.5-5.[address] [facility] Serum or plasma sodium measu rement (moles/volume)Ordered By: Dilan Nguyễn on 02-20-2022 Sodium [Moles/Vol] 137 mmol/L 136-146 [facility] Serum or plasma total carbon dioxide measurement (moles/volume)Ordered By: Dilan Nguyễn on 02-20-2022 CO2 [Moles/Vol] 25.3 mmol/L 22.0-30.0 [facility] Serum or plasma urea nitroge n measurement (mass/volume)Ordered By: Dilan Nguyễn on 02-20-2022 Urea nitrogen [Mass/Vol] 26 mg/dL 01-25 [facility] Serum or plasma uric acid me asurement (mass/volume)Ordered By: Dilan Nguyễn on 02-20-2022 Urate [Mass/Vol] 4.3 mg/dL 2.6-7.2 [facility] Specific gravity Auto test s trip (U) [Rel density]Ordered By: Dilan Nguyễn on 02-20-2022 Specific gravity (U) [Rel density] 1.010 1.001-1.030 [facility] Squamous epithelial cells de tection in urine sediment by light microscopyOrdered By: Dilan Nguyễn on 02-20-2022 Epithelial cells.squamous LM Ql (Urine sed) 1-2 [HPF] 0-2 [facility] Urine bacteria detection by automated methodOrdered By: Dilan Nguyễn on 02-20-2022 Bacteria Auto Ql (U) None seen None Seen [facility] Urine clarity by refractomet ry automatedOrdered By: Dilan Nguyễn on 02-20-2022 Clarity Refractometry automated (U) Clear Clear [facility] Urine culture routineOrdered By: Dilan Nguyễn on 02-20-2022 Bacteria identified Cx Nom (U) 2 Days [facility] Urine glucose measurement by automated test strip (mass/volume)Ordered By: Dilan Nguyễn on 02-20-2022 Glucose Auto test strip (U) [Mass/Vol] Normal mg/dL Normal [facility] Urine hemoglobin detection b y automated test stripOrdered By: Dilan Nguyễn on 02-20-2022 Hemoglobin Auto test strip Ql (U) Negative Negative [facility] Urine leukocyte esterase det ection by automated test stripOrdered By: Dilan Nguyễn on 02-20-2022 Leukocyte esterase Auto test strip Ql (U) 3+ Negative [facility] Urine protein/creatinine rat ioOrdered By: Dilan Nguyễn on 02-20-2022 Protein/Creatinine (U) [Ratio] TNP [facility] Comment on above: Test not performed Urobilinogen Auto test strip (U) [Mass/Vol]Ordered By: Dilan Nguyễn on 02-20-2022 Urobilinogen (U) [Mass/Vol] Normal mg/dL Normal [facility] WBC Auto (Bld) [#/Vol]Ordere d By: Dilan Nguyễn on 02-20-2022 WBC (Bld) [#/Vol] 8.0 10*3/uL 3.8-11.6 [facility] pH Auto test strip (U)Ordere d By: Dilan Nguyễn on 02-20-2022 pH (U) 6.0 [pH] 5.0-9.0 [facility] Office Visit (Oncology Surge ry)on 06-18-2021 Follow-up visit Diagnoses/Problems Assessed 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 H/o pulmonary embolism on Eliquis Surgery 10/08/2019 - WIde excision left upper arm melanoma Pathology - No residual neoplasm The patient visit was performed virtually per the patient's request. She will continue to follow with Dr. Rdz in Dermatology for TBSE. She understands that this will be her primary surveillance going forward. Rheumatology is seeing her for arm swelling and other issues. The patient knows to call me with any concerns that I can address. The patient asked appropriate questions that were answered to her satisfaction. She can reach out at any time with questions or concerns Total of 12 minutes was spent evaluating this patient's case by phone Chief Complaint A telephone visit (audio only) between the patient (at the originating site) and the provider (at the distant site) was utilized to provide this telehealth service. Left shoulder melanoma History of Present IllnessMsMars Pickens presented as a 69 year old Female referred by Dr. Nj Kelley for evaluation and management of a left upper arm Melanoma. The patient reports that she noticed a lesion on the arm and brought this to the attention of her PCP. There was no report of trauma to the area, and the patient believes that this arose in a prior mole. She denies bleeding, or pain at the site. She has not noticed any other skin lesions. She saw her Chief Of Party Dr. Kelley and underwent a biopsy of the left arm lesion which demonstrated a 0.6mm non-ulcerated, no mitoses, melanoma. Total body skin exam was not performed at that time. Surgery 10/08/2019 - WIde excision left upper arm melanoma Pathology - No residual neoplasm 06/18/2021 ?routine follow-up. The patient continues to follow with Dr. Rdz in dermatology and has had no concerning biopsies. She is being seen by a Institute Scientist for various issues including Left arm swelling. Has concerns about persistent upper arm prominence, however workup has not identified a clear cause. No new melanoma concerns ROS: The patient has moderate performance status and is active daily. Cardiac: No chest pain, palpitations or heart attacks Pulmonary: bilateral PE s/p thrombectomy. MAMIE. HEENT: No sinus or dental issues. GI: No constipation, diarrhea, or bloody bowel movements. Some irritable bowel : no urinary complaints Musculoskeletal: No limitations to ROM or strength. Swellin go fthe left upper arm per report. chronic Skin: Left upper arm melanoma treated. Heme: No bleeding or thrombosis issues Lymph: No swollen lymph glands on self examinations Psych: No reported anxiety or depression Neuro: tremor All other systems reviewed and negative Physical exam: Unable to be performed due to the telephone nature of the visit Active Problems Problems Diabetes mellitus (250.00) (E11.9) Familial tremor (333.1) (G25.0) Hypertension (401.9) (I10) Lymphadenopathy, axillary (785.6) (R59.0) Malignant melanoma of left upper extremity including shoulder (172.6) (C43.62) Obstructive sleep apnea (327.23) (G47.33) Pulmonary embolism (415.19) (I26.99) Stage 4 chronic kidney disease (585.4) (N18.4) Surgical History Problems History of Bladder lithotripsy History of Cholecystectomy History of Excision melanoma Wide excision Left upper arm melanoma with 1 cm. margins and intermediate repair of a 9cm. wound defect History of Thrombectomy History of Tubal ligation Family History Father Family history of cerebrovascular accident (CVA) (V17.1) (Z82.3) Family history of leukemia (V16.6) (Z80.6) Allergies Medication doxycycline Recorded By: Jodi Mccain; 07/19/2019 2:02:05 PM Current Meds Medication NameInstructionReason Albuterol Sulfate (2.5 MG/3ML) 0.083% Inhalation Nebulization Solution Allopurinol 100 MG Oral TabletTAKE 1 TABLET DAILY. Biotin [id number] 1 CAPSULE ORALLY bid Carvedilol 12.5 MG Oral Tablet1 TABLET BY MOUTH TWICE DAILY Eliquis 5 MG Oral TabletORALLY TWICE 1TAB PER DAY Fenofibrate 145 MG Oral Tablet Furosemide 20 MG Oral TabletTAKE 1 TABLET DAILY DIRECTED. Losartan Potassium 100 MG Oral TabletTAKE 1 TABLET ONCE DAILY. NovoLOG FlexPen 100 UNIT/ML Subcutaneous Solution Pen-injector Omeprazole 20 MG Oral Capsule Delayed Release1 tab once per day PreserVision AREDS 2 CAPS Topiragen 25 MG TABSTAKE 2 TABLETS TWICE DAILY Tresiba FlexTouch 200 UNIT/ML Subcutaneous Solution Pen-injector Trulicity 0.75 MG/0.5ML Subcutaneous Solution Pen-injector Trulicity 1.5 MG/0.5ML Subcutaneous Solution Pen-injector Ventolin HFA 108 (90 Base) MCG/ACT Inhalation Aerosol SolutionINHALE 1 TO 2 PUFFS EVERY 4 TO 6 HOURS NEEDED. Verapamil HCl ER 240 MG Oral Capsule Extended Release 24 Hour Signatures Electronically signed by : Heath Francisco, (more content not included)... Normal Bleacher Report Radiologyon 12-15-2020 US Extremity limited [facility] Work Phone: US Extremity Please click on the link to view the study images Normal [facility] [address] Work Phone: Blood Pressure Cuff Sizeon 0 11-27-2020 Blood Pressure Cuff Size Adult [id number] Work Phone: Office Visit (Oncology Surge ry)on 11-27-2020 Follow-up visit Diagnoses/Problems Assessed Malignant melanoma of left upper extremity including shoulder (172.6) (C43.62) Lymphadenopathy, axillary (785.6) (R59.0) Orders Malignant melanoma of left upper extremity including shoulder Ultrasound Non Vasc Extremity; Status:Active; Requested for:[id number]; Laterality : Right Radiologist to Determine Optimal Study : Y What are the patient's signs and symptoms? : patient with hx R axilla lymphnode abnormality- eval for surveillance Unlinked Continue: Albuterol Sulfate (2.5 MG/3ML) 0.083% Inhalation Nebulization Solution Continue: Allopurinol 100 MG Oral Tablet; TAKE 1 TABLET DAILY Continue: Biotin TABS; 6000 1 CAPSULE ORALLY bid Continue: Carvedilol 12.5 MG Oral Tablet; 1 TABLET BY MOUTH TWICE DAILY Continue: Eliquis 5 MG Oral Tablet; ORALLY TWICE 1TAB PER DAY Continue: Fenofibrate 145 MG Oral Tablet Continue: Furosemide 20 MG Oral Tablet; TAKE 1 TABLET DAILY DIRECTED Continue: Losartan Potassium 100 MG Oral Tablet; TAKE 1 TABLET ONCE DAILY Continue: NovoLOG FlexPen 100 UNIT/ML Subcutaneous Solution Pen-injector Continue: Omeprazole 20 MG Oral Capsule Delayed Release; 1 tab once per day Continue: PreserVision AREDS 2 CAPS Continue: Topiragen 25 MG TABS; TAKE 2 TABLETS TWICE DAILY Continue: Tresiba FlexTouch 200 UNIT/ML Subcutaneous Solution Pen-injector Continue: Trulicity 0.75 MG/0.5ML Subcutaneous Solution Pen-injector Continue: Trulicity 1.5 MG/0.5ML Subcutaneous Solution Pen-injector Continue: Ventolin HFA 108 (90 Base) MCG/ACT Inhalation Aerosol Solution (Albuterol Sulfate HFA); INHALE 1 TO 2 PUFFS EVERY 4 TO 6 HOURS NEEDED Continue: Verapamil HCl ER 240 MG Oral Capsule Extended Release 24 Hour Patient Discussion/Summary 70 year old female with a left upper arm melanoma (0.6mm, non-ulcerated on outside pathology). H/o pulmonary embolism on Eliquis Surgery 10/08/2019 - WIde excision left upper arm melanoma Pathology - No residual neoplasm The patient has no clinical evidence for disease recurrence at this time. She is concerned about the prior ultrasound result that suggested a slightly atypical and prominent lymph node in the right axilla which was seen on ultrasound performed for right upper extremity swelling. A follow-up CT scan of the chest did not identify any concerning adenopathy however since that test does not as sensitive for cheko morphology I suggest that we confirm the resolution of that slightly atypical node with a repeat ultrasound of the axilla. From a clinical standpoint, the patient is well connected to her creative/art director and should continue with total-body skin examinations by Dr. Rdz. I can follow on an as-needed basis. If the ultrasound that is repeated for right axilla demonstrates any concerns I will call the patient and this plan for follow-up will be amended. The patient asked appropriate questions that were answered to her satisfaction. She can reach out at any time with questions or concerns Total of 20 minutes was spent evaluating this patient's case with over 50% of that time in direct medication with the patient and her family Chief Complaint Left shoulder melanoma; right axillary lymphadenopathy on ultrasound in August History of Present IllnessMs. Pickens presented as a 69 year old Female referred by Dr. Nj Kelley for evaluation and management of a left upper arm Melanoma. The patient reports that she noticed a lesion on the arm and brought this to the attention of her PCP. There was no report of trauma to the area, and the patient believes that this arose in a prior mole. She denies bleeding, or pain at the site. She has not noticed any other skin lesions. She saw her Chief Of Party Dr. Kelley and underwent a biopsy of the left arm lesion which demonstrated a 0.6mm non-ulcerated, no mitoses, melanoma. Total body skin exam was not performed at that time. Surgery 10/08/2019 - WIde excision left upper arm melanoma Pathology - No residual neoplasm 11/27/2020?routine follow-up. The patient continues to follow with Dr. Rdz in dermatology and has had no concerning biopsies. The patient was noted at her last visit to have new swelling in her right upper arm at the shoulder. This was evaluated by her primary care physician who obtained an ultrasound of the right axilla. That study identified 1 prominent slightly atypical node based on its morphology and this was followed up with a CT scan of the chest that did not identify any adenopathy or other lesions of concern. The patient reports that since that time, the right shoulder has remained more prominent than the last however she occasionally has swelling of the left distal forearm and bilateral lower extremities. ROS: The patient has moderate performance status and is active daily. Cardiac: No chest pain, palpitations or heart attacks Pulmonary: bilateral PE s/p thrombectomy. MAMIE. HEENT: No sinus or dental issues. GI: No constipation, diarrhea, or bloody bowel movements. Some irritable (more content not included)... Normal [facility] Office Visit (Oncology Surge ry)on 08-14-2020 Follow-up visit Diagnoses/Problems Assessed Malignant melanoma of left upper extremity including shoulder (172.6) (C43.62) Orders Unlinked Continue: Albuterol Sulfate (2.5 MG/3ML) 0.083% Inhalation Nebulization Solution Continue: Allopurinol 100 MG Oral Tablet; TAKE 1 TABLET DAILY Continue: Biotin TABS; 6000 1 CAPSULE ORALLY bid Continue: Carvedilol 12.5 MG Oral Tablet; 1 TABLET BY MOUTH TWICE DAILY Patient Discussion/Summary 70 year old female with a left upper arm melanoma (0.6mm, non-ulcerated on outside pathology). H/o pulmonary embolism on Eliquis Surgery 10/08/2019 - WIde excision left upper arm melanoma Pathology - No residual neoplasm No clinical evidence for melanoma recurrence. The patient is plugged in with Dr. Rdz for dermatology in has an upcoming visit within the next month. I will continue to follow at 6-month intervals for clinical examination. The patient knows to address the finding of right arm the left arm asymmetry that is focal in the upper portion of that arm. I suspect that this is subcutaneous edema and possibly may be related to the glucometer and recent Covid vaccine that she received in that arm. Nonetheless it is asymptomatic and does not appear to be concerning for a DVT. Although DVT was considered, the patient remains on her Eliquis faithfully and I have low suspicion. The patient asked appropriate questions that were answered to her satisfaction. She can reach out at any time with questions or concerns Total of 20 minutes was spent evaluating this patient's case with over 50% of that time in direct medication with the patient and her family Chief Complaint Left shoulder melanoma History of Present IllnessMsMars Pickens is a 69 year old Female referred by Dr. Nj Kelley for evaluation and management of a left upper arm Melanoma. The patient reports that she noticed a lesion on the arm and brought this to the attention of her PCP. There was no report of trauma to the area, and the patient believes that this arose in a prior mole. She denies bleeding, or pain at the site. She has not noticed any other skin lesions. She saw her Chief Of Party Dr. Kelley and underwent a biopsy of the left arm lesion which demonstrated a 0.6mm non-ulcerated, no mitoses, melanoma. Total body skin exam was not performed at that time. Surgery 10/08/2019 - WIde excision left upper arm melanoma Pathology - No residual neoplasm 08/15/2020?routine follow-up. The patient denies any recent biopsies. She has established care with Dr. Reyna Rdz in dermatology. She has another visit with Dr. Rdz within the next month for surveillance. Since our last visit, the patient has received a implantable glucometer in her right upper arm as well as her first dose of her Covid vaccine. She denies any apparent issues related to these however she does have soreness of muscles all throughout her extremities upper and lower. ROS: The patient has moderate performance status and is active daily. Cardiac: No chest pain, palpitations or heart attacks Pulmonary: bilateral PE s/p thrombectomy. MAMIE. HEENT: No sinus or dental issues. GI: No constipation, diarrhea, or bloody bowel movements. Some irritable bowel : no urinary complaints Musculoskeletal: No limitations to ROM or strength. Skin: Left upper arm melnaoma. Additional skin lesions that she is uncertain of the diagnosis on her trunk Heme: No bleeding or thrombosis issues Lymph: No swollen lymph glands Psych: No reported anxiety or depression Neuro: tremor All other systems reviewed and negative Physical exam: General: No acute distress. HEENT: Moist oral mucosa, normocephalic CV: RRR, Vitals reviewed Pulmonary: No respiratory distress. No use of accessory muscles. No audible wheeze GI: Soft, non-distended. Lymphatics: No palpable lymph nodes in bilateral cervical, and axillary, as well as left epitrochlear basins Skin: Left upper arm incision well healed. Neuro: No gross sensorimotor deficits. Tremor noted Extremities: The RIGHT upper arm demonstrates a larger size than the left. This seems to be related to subcutaneous tissue fullness. This is non-tender and is incidentally noted on exam. No involvement of the lower arm. No ROM limitation. The left arm appears atrophied in comparison. Active Problems Problems Diabetes mellitus (250.00) (E11.9) Familial tremor (333.1) (G25.0) Hypertension (401.9) (I10) Malignant melanoma of left upper extremity including shoulder (172.6) (C43.62) Obstructive sleep apnea (327.23) (G47.33) Pulmonary embolism (415.19) (I26.99) Stage 4 chronic kidney disease (585.4) (N18.4) Surgical History Problems History of Bladder lithotripsy History of Cholecystectomy History of Excision melanoma Wide excision Left upper arm melanoma with 1 cm. margins and intermediate repair of a 9cm. wound defect History of Thrombectomy History of Tubal ligation Family History Father Family history of cerebrovascular accident (CVA) (V17.1) (more content not included)... Normal [facility] GLUCOSE-POCTon 10-08-2019 Glucose [Mass/Vol] 257 mg/dL High 74 - 99 [facility] Comment on above: Result Comment: Erna short MD/RN Performed By: #### G RYAN #### [facility] [address] [place] [address] Glucose [Mass/Vol] 281 mg/dL High 74 - 99 [facility] Comment on above: Performed By: #### G RYAN #### [facility] [address] [place] [address] History and Physical - Surge ry > 30 dayson 10-08-2019 History and Physical - Surgery > 30 days History of Present Illness: History Present Illness: Reason for surgery: Melanoma HPI: Ms. Pickens is a 69 year old Female referred by Dr. Nj Kelley for evaluation and management of a left upper arm Melanoma. The patient reports that she noticed a lesion on the arm and brought this to the attention of her PCP. There was no report of trauma to the area, and the patient believes that this arose in a prior mole. She denies bleeding, or pain at the site. She has not noticed any other skin lesions. She saw her Chief Of Party Dr. Kelley and underwent a biopsy of the left arm lesion which demonstrated a 0.6mm non-ulcerated, no mitoses, melanoma. The patient's case was delayed due to the COVID19 pandemic and patient preference. Last Eliquis Dose 10/04/2019 - Cleared by Pulmonology Past medical history: Diabetes Mellitus HTN Bilateral Pulmonary embolisms s/p thrombectomy, currently on Eliquis CKD4 MAMIE Familial tremor Past surgical history: Gallbladder removed Bladder stone removal 2009 Tubal ligation Pulmonary Thrombectomy recently Family History: Father with leukemia. Strokes Social history: Lives with , No tobacco, No ETOH Allergies: Doxycycline ROS: The patient has moderate performance status and is active daily. Cardiac: No chest pain, palpitations or heart attacks Pulmonary: bilatera PE s/p thrombectomy. MAMIE. some dyspnea on exertion HEENT: No sinus or dental issues. GI: No constipation, diarrhea, or bloody bowel movements. Some irritable bowel : no urinary complaints Musculoskeletal: No limitations to ROM or strength Skin: No prior skin lesions or concerns Heme: No bleeding or thrombosis issues Lymph: No swollen lymph glands Psych: No reported anxiety or depression Neuro: tremor All other systems reviewed and negative Physical exam: General: No acute distress. HEENT: Moist oral mucosa, normocephalic CV: RRR, Vitals reviewed Pulmonary: No respiratory distress. No use of accessory muscles. No audible wheeze GI: Soft, non-distended. Lymphatics: No palpable lymph nodes in bilateral cervical, and axillary basins Skin: 1x2cm shave biopsy on upper arm Neuro: No gross sensorimotor deficits. Tremor noted Extremities: No arm swelling Home Medication Review: Home Medications Reviewed: yes Impression/Procedure: Impression and Planned Procedure: Left upper arm thin melanoma Plan: Wide excision left upper arm melanoma Vital Signs: Temperature C: 37.4 degrees C Temperature F: 99.3 degrees F Heart Rate: 74 beats per minute Respiratory Rate: 16 breath per minute Blood Pressure Systolic: 150 mm/Hg Blood Pressure Diastolic: 70 mm/Hg Physical Exam: Constitutional: See HPI for details on the Physical Exam Respiratory/Thorax: No respiratory distress Cardiovascular: RRR Neurological: Essential tremor Signatures/Attestation/ Certification: Note Completion: Attending Provider Inpatient Certification StatementObservation patient/other outpatient visits Electronic Signatures: Heath Francisco) (Signed 08-Oct-2019 07:22) Authored: History of Present Illness, Home Medication Review, Impression/Procedure, Physical Exam, Signatures/Attestation/ Certification Last Updated: 08-Oct-2019 07:22 by Heath Francisco) Normal [facility] Operative Reports - [place] on 10-08-2019 Operative Reports - [place] Preoperative diagnosis: Left upper arm melanoma Postoperative diagnosis: Same Procedure: 1) Wide excision Left upper arm melanoma with 1 cm. margins and intermediate repair of a 9cm. wound defect. Surgeon: Heath Francisco M.D. Perioperative Manager: Tanya MCGREGOR Anesthesia: MAC and local EBL: 5ml Specimens: Wide excision left upper arm melanoma Short proximal 12:00; Long anterior 9:00 Findings: Prior biopsy scar noted Indications: 69 F with biopsy showing a 0.6mm non-ulcerated melanoma. Her pathology was reviewed and her case was resented in Multidisciplinary tumor board. Surgery was recommended. Due to COVID19 the patient preferred to delay her surgery. This was deemed acceptable due to the complete excision of the lesion on initial biopsy, however she was offered to schedule a few times. Currently her COVID test was negative. Informed consent was obtained. Description of the procedure: The patient was brought to the operating room and placed supine on the table. Sequential compression devices were applied. MAC anesthesia was smoothly induced. The operative sites were prepped and draped in the usual fashion. Timeout was performed and preoperative antibiotics given. I directed my attention to the left upper arm. 1cm. margins were marked around the primary melanoma scar. The wound markings were elongated resulting in a 9cm. wound markings. Skin incision was made with a knife and dissection carried to but not through the underlying muscular fascia. I now elevated skin and subcutaneous flaps by undermining 1cm. The wound was irrigated and hemostasis was assured. The wound was closed in layers with Vicryl suture in the romaine's and the deep dermal layers and 4-0 monocryl to the skin. Steristips and mastisol were placed on the incision and an island dressing were applied. The patient tolerated the procedure well without any apparent intraoperative complications. All sponge, needle, and instrument counts were correct. As the attending surgeon I was scrubbed for all vee portions of the procedure. Electronic Signatures: Heath Francisco) (Signed on 08-Oct-2019 08:42) Authored Last Updated: 08-Oct-2019 08:42 by Heath Francisco) [facility] Patient Profile - Preop v2on 10-08-2019 Patient Profile - Preop v2 Profile: Initial Info: How to be AddressedBARB Spoken Language PreferredEnglish Stated Reason for AdmissionMELENOMA REMOVED LT ARM Primary Contact Name and [phone] Patient Belongingsnone Medications Brought to Hospitalno Are you currently using the Personal Electronic Health Record or Flixpressno Are you interested in learning more about [employer] for the management of your healthnot at this time General Health: Blood Avoidance/Restrictionsn one Weight in kg120 kilogram(s) Weight in vxc216.5 pound(s) Weight Methodstated Height in cm165.1 centimeter(s) Height in feet5 feet Height in inches5 inch(es) Height Methodstated BMI (kg/m2)44.023 square meter Patient or Family Member Reaction to Anesthesiano previous reaction Health Mgmt: Barriers to Managing Healthnone Symptoms/Conditions Managed at HomeSEE H&P AND PROBLEM LIST Relationship/Environ: Living Arrangementshouse Resource/Environmental Concernsnone Lives Withspouse Substance: Current or Former Substance Use never: Cigarette/Tobacco, e-Cigarette/Vaping, Alcohol, Street Drugs Risk Screens: Advance Directive/DNRno Advance Directive Information Givenpatient/family declined During the past month, have you often been bothered by feeling down, depressed or hopelessno During the past month, have you often had little interest or pleasure in doing thingsno Have you had any thoughts of harming yourselfno Have you had any thoughts of harming anyone elseno Are you or have you been threatened or abused physically,emotionally or sexually abused by anyoneno Do you feel UNSAFE going back to the place you are livingno Patient is Able to be Assessed for Learningyes Factors Influencing Readiness to Learninterest in learning Factors that Impact Ability to Learnnone Devices/Methods Used to Communicateglasses Learning Preferencesverbal instruction Cultural Considerationsnone Developmental Considerationsnone Sabianist Considerationsnone Other learner availableno [place] RiskPatient location auto qualifies him/her for HIGH RISK. Are there any cultural, spiritual, temple practices/values/needs that are important for us to knowno Do you want a visit/item from [facility] Pain Scalenumerical 0-10 Pain Scale Educationteaching provided Current Pain Level0 = None Acceptable Pain Level5 = Moderate Chronic Painno Information Review: Allergies, Home Meds and Significant Events have been Reviewed and Verified with Patient/Familyyes Electronic Signatures: Danuta Ngo (VENANCIO) (Signed 08-Oct-2019 07:36) Authored: Profile, Additional Information Last Updated: 08-Oct-2019 07:36 by Danuta Ngo (VENANCIO) Normal [facility] Preop Checkliston 10-08-2019 Preop Checklist Preop Checklist: Preop Checklist: Arrival [id number] Arrival Time06:10 Procedure TypeLT ARM MELANOMA REOVED Temperature C37.4 degrees C Temperature F99.3 degrees F Heart Rate74 beats per minute Respiratory Rate16 breath per minute Blood Pressure Iajnrmjc255 mm/Hg Blood Pressure Gsvvtnphw09 mm/Hg NPO [id number] 23:00 ID Band Onyes Allergy Bandyes Consent Signedyes H&P Completeyes Anesthesia Assessment Completedyes EKG Performedyes Chest X-Ray Performednot ordered HCG Urine TestN/A Chlorhexadine Bath Givennot applicable Nasal Antiseptic Appliednot applicable Hair Washedyes Soap and water bath with hair shampoo the night before surgeryyes Hat placed on prior to transportnot applicable SCD's Appliedyes CRISTINE Hose Appliednot ordered Denturesnot applicable Prostheticsnot applicable Hearing Aidsnot applicable Valuables Securedleft in patient room IN BAG UNDER CART Glasses / Contactsleft in patient room IN BAG Cardiovascular Assessment: Apicalregular Radial Pulsespalpable Pedal Pulsespalpable Extremitieswarm Respiratory Assessment: Respirationsunlabored regular Air Exchangegood, equal Breath Soundsclear Neurological Assessment: Level of Consciousnessalert, oriented Mobilitymoves all extremities Able to Express Selfyes Age Appropriateyes Emotional Statuscalm Preop Education: Surgical Site Infection Preventionyes Pain Scales and Managementyes Language / Communication: Language / CommunicationEnglish Electronic Signatures: Danuta Ngo (RN) (Signed 08-Oct-2019 07:39) Authored: Preop Checklist Last Updated: 08-Oct-2019 07:39 by Danuta Ngo (RN) Normal [facility] NEW MICROALBUMINon 9 Creatinine mass conc (U) 59.2 mg/dL Normal [facility] Comment on above: Order Comment: THE M ICROALBUMIN IS < 6.0 THEREFORE THE MICROALBUMIN/CREATININE RATIO IS UNDETECTABLE. Performed By: #### 8 00 #### [facility] Unless Otherwise Noted [address] [place] [address] / COLA #4724/CLIA # [id number] Microalbumin <6.0 Normal 0.0-30.0 [facility] Comment on above: Order Comment: THE M ICROALBUMIN IS < 6.0 THEREFORE THE MICROALBUMIN/CREATININE RATIO IS UNDETECTABLE. Performed By: #### 8 00 #### [facility] Unless Otherwise Noted [address] [address] / COLA #4724/CLIA # [id number] Urine A/C Ratio -99.0 mg/g Low 0.0-30.0 [facility] Comment on above: Order Comment: THE M ICROALBUMIN IS < 6.0 THEREFORE THE MICROALBUMIN/CREATININE RATIO IS UNDETECTABLE. Performed By: #### 8 00 #### [facility] Unless Otherwise Noted [address] [address] / COLA #4724/CLIA # [id number] LIPID PANEL (INCLUDES CALCUL ATED LDL)on 07-08-2018 Cholesterol in LDL/Cholesterol in HDL mass ratio 1.8 Normal <3.5 [facility] Comment on above: Performed By: #### 3 29 #### [facility] Unless Otherwise Noted [address] [address] / COLA #8624/CLIA # [id number] Cholesterol mass conc 165 mg/dL Normal <200 [facility] Comment on above: Performed By: #### 3 29 #### [facility] Unless Otherwise Noted [address] [address] / COLA #4724/CLIA # [id number] Cholesterol.total/Chol esterol in HDL mass ratio 3.8 {ratio} Normal <5 [facility] Comment on above: Result Comment: [employer] [address] [place] [address] CLIA No. [id number] CAP Accreditation No. [id number] Geophysics Scientist: Ray Tate M.D. Performed By: #### 3 29 #### [facility] Unless Otherwise Noted [address] [address] / COLA #4724/CLIA # [id number] HDL-CHOL 43.1 mg/dL Normal >39 [facility] Comment on above: Result Comment: HDL <40 mg/dL IS A RISK FACTOR FOR CORONARY HEART DISEASE. HDL >60 mg/dL IS A NEGATIVE RISK FACTOR FOR CORONARY HEART DISEASE. Performed By: #### 3 29 #### [facility] Unless Otherwise Noted [address] [facility] [address] [place] [address] / COLA #4724/CLIA # [id number] LDL-CHOL, CALCULATED 76 mg/dL Normal <130 [facility] Comment on above: Result Comment: LDL CHOLESTEROL REFERENCE RANGE FOR 0-19 YEARS: DESIRABLE <110 mg/dL, BORDERLINE 110-129, HIGH RISK >130 LDL CHOLESTEROL REFERENCE RANGE FOR ADULTS: DESIRABLE <100 mg/dL, BORDERLINE 130-159, HIGH RISK >160 REFERENCE RANGES REVISED 10/13/15 ACCORDING TO NCEP GUIDELINES Performed By: #### 3 29 #### [facility] Unless Otherwise Noted [address] [address] / COLA #4724/CLIA # [id number] Triglyceride mass conc 232 mg/dL High <150 [facility] Comment on above: Performed By: #### 3 29 #### [facility] Unless Otherwise Noted [address] [address] / COLA #4724/CLIA # [id number] VLDL-CHOL, CALCULATED 46 mg/dL High <30 [facility] Comment on above: Performed By: #### 3 29 #### [facility] Unless Otherwise Noted [address] [facility] 100 [place] [address] / COLA #4724/CLIA # [id number] PTH, Intacton 03-07-2018 PTH, Intact 21.59 pg/mL Normal 15.0-65.0 [facility] Comment on above: Result Comment: SAMP LES FROM PATIENTS ROUTINELY RECEIVING HIGH DOSE BIOTIN THERAPY MAY SHOW FALSELY DEPRESSED RESULTS. ADDITIONAL INFORMATION MAY BE REQUIRED FOR DIAGNOSIS. Performed By: #### R ENP, URTPRT, MG, UAMIC, URI ####[address] [place], [place] [id number] #### CBC, PTHNCA, VD25 ####[address] [id number] Vitamin D 25 OHon 03-07-2018 Vitamin D 25 [place] 25.9 ng/mL Low 30.0-100.0 [facility] Comment on above: Result Comment: Refe rence Range:Vitamin D status Range Deficiency <20 ng/mL Mild Deficiency 20-30 ng/mL Sufficiency 30-100 ng/mL Toxicity >100 ng/mL Performed By: #### R ENP, URTPRT, MG, UAMIC, URI ####[address] [place], [place] [id number] #### CBC, PTHNCA, VD25 ####[address] [address] CBCon 03-06-2018 Erythrocyte distribution width Auto Ratio (RBC) 14.9 % High 11.8-14.4 [facility] Comment on above: Performed By: #### U RI, UAMIC, URCRE, RENP, MG, CBC ####[address] [place], [place] [id number] #### VD25, PTHNCA ####[address] [address] Hematocrit Auto Volume Fraction (Bld) 43.7 % Normal 36.3-47.1 [facility] Comment on above: Performed By: #### U RI, UAMIC, URCRE, RENP, MG, CBC ####[address] [place], [place] [address] #### VD25, PTHNCA ####[address] [id number] Hemoglobin mass conc (Bld) 13.5 g/dL Normal 11.9-15.1 [facility] Comment on above: Performed By: #### U RI, UAMIC, URCRE, RENP, MG, CBC ####[address] [place] [address] #### VD25, PTHNCA ####[address] [address] MCH Auto Entitic mass (RBC) 27.2 pg Normal 25.2-33.5 [facility] Comment on above: Performed By: #### U RI, UAMIC, URCRE, RENP, MG, CBC ####[address] [place] [address] #### VD25, PTHNCA ####[address] [address] MCHC Auto mass conc (RBC) 30.9 g/dL Normal 28.4-34.8 [facility] Comment on above: Performed By: #### U RI, UAMIC, URCRE, RENP, MG, CBC ####[address] [place], [place] [address] #### VD25, PTHNCA ####[address] [address] MCV Auto Entitic volume (RBC) 87.9 fL Normal 82.6-102.9 [facility] Comment on above: Performed By: #### U RI, UAMIC, URCRE, RENP, MG, CBC ####[address] [place], [place] [id number] #### VD25, PTHNCA ####[address] [address] NRBC Automated 0.0 per [address] [facility] Comment on above: Performed By: #### U RI, UAMIC, URCRE, RENP, MG, CBC ####[address] [place] [address] #### VD25, PTHNCA ####[address] [address] Platelet mean volume Auto Entitic volume (Bld) 10.1 fL Normal 8.1-13.5 [facility] Comment on above: Performed By: #### U RI, UAMIC, URCRE, RENP, MG, CBC ####[address] [place] [address] #### VD25, PTHNCA ####[address] [address] Platelets Auto #/vol (Bld) 431 10*3/uL Normal 138-453 [facility] Comment on above: Performed By: #### U RI, UAMIC, URCRE, RENP, MG, CBC ####[address] [place] [address] #### VD25, PTHNCA ####[address] [address] RBC Auto #/vol (Bld) 4.97 10*6/uL Normal 3.95-5.11 [facility] Comment on above: Performed By: #### U RI, UAMIC, URCRE, RENP, MG, CBC ####[address] [place] [address] #### VD25, PTHNCA ####[address] [address] WBC Auto #/vol (Bld) 10.2 10*3/uL Normal 3.5-11.3 [facility] Comment on above: Performed By: #### U RI, UAMIC, URCRE, RENP, MG, CBC ####[address] [place] [address] #### VD25, PTHNCA ####[address] 1957508 Creatinine,Random Uron 03-06 Creatinine mass conc 37.0 mg/dL Normal 28.0-217.0 [facility] Comment on above: Performed By: #### R ENP, URTPRT, MG, UAMIC, URI ####[address] [place] [id number] #### CBC, PTHNCA, VD25 ####[address] [id number] Creatinine mass conc 36.3 mg/dL Normal 28.0-217.0 [facility] Comment on above: Performed By: #### U RI, UAMIC, URCRE, RENP, MG, CBC ####[address] [place] [id number] #### VD25, PTHNCA ####[address] [address] Magnesiumon 03-06-2018 Magnesium mass conc 2.2 mg/dL Normal 1.6-2.6 [facility] Comment on above: Performed By: #### R ENP, URTPRT, MG, UAMIC, URI ####[address] [place] [id number] #### CBC, PTHNCA, VD25 ####[address] [address] Renal Function Panelon 03-06 (cont.) Normal [facility] Comment on above: Result Comment: Aver age GFR for 60-69 years old: 85 mL/min/1.73sq mChronic Kidney Disease: <60 mL/min/1.73sq mKidney failure: <15 mL/min/1.73sq meGFR calculated using average adult body mass. Additional eGFR calculator available at:http://www.OpenGov.com/multiple_crcl_2012.htm Performed By: #### R ENP, URTPRT, MG, UAMIC, URI ####[address] [place] [address] #### CBC, PTHNCA, VD25 ####[address] [address] Albumin mass conc 4.0 g/dL Normal 3.5-5.2 [facility] Comment on above: Performed By: #### R ENP, URTPRT, MG, UAMIC, URI ####[address] [place] [id number] #### CBC, PTHNCA, VD25 ####[place] [address] [place] [address] Anion gap 3 molar conc 12 mmol/L Normal 9-17 [facility] Comment on above: Performed By: #### R ENP, URTPRT, MG, UAMIC, URI ####[address] [place], [place] [address]283 #### CBC, PTHNCA, VD25 ####[address] [address] [place] [address] BUN/CRE Ratio 18 Normal 9-20 [facility] Comment on above: Performed By: #### R ENP, URTPRT, MG, UAMIC, URI ####[address] [place] [address] #### CBC, PTHNCA, VD25 ####[address] [place] [address] Calcium mass conc 9.3 mg/dL Normal 8.6-10.4 [facility] Comment on above: Performed By: #### R ENP, URTPRT, MG, UAMIC, URI ####[address] [place] [address] #### CBC, PTHNCA, VD25 ####[address] [address] Chloride molar conc 104 mmol/L Normal 98-107 [facility] Comment on above: Performed By: #### R ENP, URTPRT, MG, UAMIC, URI ####[address] [place] [address] #### CBC, PTHNCA, VD25 ####[address] [address] CO2 molar conc 24 mmol/L Normal 20-31 [facility] Comment on above: Performed By: #### R ENP, URTPRT, MG, UAMIC, URI ####[address] [place] [address] #### CBC, PTHNCA, VD25 ####[address] [address] Creatinine mass conc 1.47 mg/dL High 0.50-0.90 [facility] Comment on above: Performed By: #### R ENP, URTPRT, MG, UAMIC, URI ####[address] [place] [address] #### CBC, PTHNCA, VD25 ####[address] [address] GFR, Amer 43 mL/min Low >60 [facility] Comment on above: Performed By: #### R ENP, URTPRT, MG, UAMIC, URI ####[address] [place] [address] #### CBC, PTHNCA, VD25 ####[address] [address] GFR,non Amer 36 mL/min Low >60 [facility] Comment on above: Performed By: #### R ENP, URTPRT, MG, UAMIC, URI ####[address] [place] [address] #### CBC, PTHNCA, VD25 ####[address] [address] Glucose mass conc 63 mg/dL Low 70-99 [facility] Comment on above: Performed By: #### R ENP, URTPRT, MG, UAMIC, URI ####[address] [place] [address] #### CBC, PTHNCA, VD25 ####[address] [address] Phosphorus, Inorg. 3.5 mg/dL Normal 2.6-4.5 [facility] Comment on above: Performed By: #### R ENP, URTPRT, MG, UAMIC, URI ####[address] [place] [address] #### CBC, PTHNCA, VD25 ####[address] [address] Potassium molar conc 4.0 mmol/L Normal 3.7-5.3 [facility] Comment on above: Performed By: #### R ENP, URTPRT, MG, UAMIC, URI ####[address] [place] [address] #### CBC, PTHNCA, VD25 ####[address] [address] Sodium molar conc 140 mmol/L Normal 135-144 [facility] Comment on above: Performed By: #### R ENP, URTPRT, MG, UAMIC, URI ####[address] [place], [place] [address] #### CBC, PTHNCA, VD25 ####[address] [address] Staging: Normal [facility] Comment on above: Result Comment: Stag e 1: Some kidney damage normal GFRStage 2: Mild kidney damage GFR 60-89Stage 3: Moderate kidney damage GFR 30-59Stage 4: Severe kidney damage GFR 15-29Stage 5: Severe kidney damage GFR <15ESRD - chronic treatment by dialysis or transplant Performed By: #### R ENP, URTPRT, MG, UAMIC, URI ####[address] [place], [place] [address]383 #### CBC, PTHNCA, VD25 ####[address] [address] Urea nitrogen mass conc 27 mg/dL High 8-23 [facility] Comment on above: Performed By: #### R ENP, URTPRT, MG, UAMIC, URI ####[address] [place], [place] [address] #### CBC, PTHNCA, VD25 ####[address] [address] Uric Acidon 03-06-2018 Urate mass conc 3.7 mg/dL Normal 2.4-5.7 [facility] Comment on above: Performed By: #### R ENP, URTPRT, MG, UAMIC, URI ####[address] [place], [place] [address] #### CBC, PTHNCA, VD25 ####[address] [address] Urinalysis w/ Microon 2017 ----- Normal [facility] Comment on above: Performed By: #### R ENP, URTPRT, MG, UAMIC, URI ####[address] [place] [address] #### CBC, PTHNCA, VD25 ####[address] [address] Acetoacetic Acid,Ur Negative Normal NEG [facility] Comment on above: Performed By: #### R ENP, URTPRT, MG, UAMIC, URI ####[address] [place] [address] #### CBC, PTHNCA, VD25 ####[address] [address] Bacteria TRACE Abnormal NONE [facility] Comment on above: Performed By: #### R ENP, URTPRT, MG, UAMIC, URI ####[address] [place] [address] #### CBC, PTHNCA, VD25 ####[address] [address] Bilirubin, SemiQt,Ur Negative Normal NEG [facility] Comment on above: Performed By: #### R ENP, URTPRT, MG, UAMIC, URI ####[address] [place] [address] #### CBC, PTHNCA, VD25 ####[address] [address] Color YELLOW Normal L [facility] Comment on above: Performed By: #### R ENP, URTPRT, MG, UAMIC, URI ####[address] [place] [address] #### CBC, PTHNCA, VD25 ####[address] [address] Epithelial cells 0 TO 2 Normal 0-25 [facility] Comment on above: Performed By: #### R ENP, URTPRT, MG, UAMIC, URI ####[address] [place] [address] #### CBC, PTHNCA, VD25 ####[address] [address] Glucose,Semi-qnt,Ur Negative Normal NEG [facility] Comment on above: Performed By: #### R ENP, URTPRT, MG, UAMIC, URI ####[address] [place] [address] #### CBC, PTHNCA, VD25 ####[address] [address] Hemoglobin, Ur Negative Normal NEG [facility] Comment on above: Performed By: #### R ENP, URTPRT, MG, UAMIC, URI ####[address] [place] [address] #### CBC, PTHNCA, VD25 ####[address] [address] Leuckocyte Esterase SMALL Abnormal NEG [facility] Comment on above: Performed By: #### R ENP, URTPRT, MG, UAMIC, URI ####[address] [place] [address] #### CBC, PTHNCA, VD25 ####[address] [address] Mucus Strands TRACE Abnormal NONE [facility] Comment on above: Performed By: #### R ENP, URTPRT, MG, UAMIC, URI ####[address] [place] [address] #### CBC, PTHNCA, VD25 ####[address] [address] Nitrite,Ur Negative Normal NEG [facility] Comment on above: Performed By: #### R ENP, URTPRT, MG, UAMIC, URI ####[address] [place] [address] #### CBC, PTHNCA, VD25 ####[address] [address] PH,Ur 5.5 Normal 5.0-9.0 [facility] Comment on above: Performed By: #### R ENP, URTPRT, MG, UAMIC, URI ####[address] [place] [address] #### CBC, PTHNCA, VD25 ####[address] [address] Protein mass conc Negative Normal NEG [facility] Comment on above: Performed By: #### R ENP, URTPRT, MG, UAMIC, URI ####[address] [place] [address] #### CBC, PTHNCA, VD25 ####[address] [address] RBC Test strip #/vol (U) 0 TO 2 Normal 0-2 [facility] Comment on above: Performed By: #### R ENP, URTPRT, MG, UAMIC, URI ####[address] [place] [address] #### CBC, PTHNCA, VD25 ####[address] [address] Spec. [place],Ur 1.015 Normal 1.010-1.020 [facility] Comment on above: Performed By: #### R ENP, URTPRT, MG, UAMIC, URI ####[address] [place] [address] #### CBC, PTHNCA, VD25 ####[address] [address] Turbidity CLEAR Normal CLEAR [facility] Comment on above: Performed By: #### R ENP, URTPRT, MG, UAMIC, URI ####[address] [place] [address] #### CBC, PTHNCA, VD25 ####[address] [address] Urine WBC's 0 TO 2 Normal 0-5 [facility] Comment on above: Performed By: #### R ENP, URTPRT, MG, UAMIC, URI ####[address] [place] [address] #### CBC, PTHNCA, VD25 ####[address] [address] Urobilinogen,Ur Normal Normal NORM [facility] Comment on above: Performed By: #### R ENP, URTPRT, MG, UAMIC, URI ####[address] [place] [address] #### CBC, PTHNCA, VD25 ####[address] [address] Amorphous Sediment NOT REPORTED Normal NONE [facility] Comment on above: Performed By: #### R ENP, URTPRT, MG, UAMIC, URI ####[address] [place] [address] #### CBC, PTHNCA, VD25 ####[address] [address] Casts NOT REPORTED Normal [facility] Comment on above: Performed By: #### R ENP, URTPRT, MG, UAMIC, URI ####[address] [place] [address] #### CBC, PTHNCA, VD25 ####[address] [address] Comment NOT REPORTED Normal [facility] Comment on above: Performed By: #### R ENP, URTPRT, MG, UAMIC, URI ####[address] [place] [address] #### CBC, PTHNCA, VD25 ####[address] [address] Crystals NOT REPORTED Normal NONE [facility] Comment on above: Performed By: #### R ENP, URTPRT, MG, UAMIC, URI ####[address] [place] [address] #### CBC, PTHNCA, VD25 ####[address] [address] Epithelial, Renal NOT REPORTED Normal 0 [facility] Comment on above: Performed By: #### R ENP, URTPRT, MG, UAMIC, URI ####[address] [place] [address] #### CBC, PTHNCA, VD25 ####[address] [address] Other Observations NOT REPORTED Normal NREQ [facility] Comment on above: Performed By: #### R ENP, URTPRT, MG, UAMIC, URI ####[address] [place] [address] #### CBC, PTHNCA, VD25 ####[address] [place] [address] Trichomonas NOT REPORTED Normal NONE [facility] Comment on above: Performed By: #### R ENP, URTPRT, MG, UAMIC, URI ####[address] [place] [address] #### CBC, PTHNCA, VD25 ####[address] [address] Yeast NOT REPORTED Normal NONE [facility] Comment on above: Performed By: #### R ENP, URTPRT, MG, UAMIC, URI ####[address] [place] [address] #### CBC, PTHNCA, VD25 ####[address] [address] PTH, Intacton 09-20-2017 PTH, Intact 17.31 pg/mL Normal 15.0-65.0 [facility] Comment on above: Result Comment: SAMP LES FROM PATIENTS ROUTINELY RECEIVING HIGH DOSE BIOTIN THERAPY MAY SHOW FALSELY DEPRESSED RESULTS. ADDITIONAL INFORMATION MAY BE REQUIRED FOR DIAGNOSIS.Performed at [address] [address] Performed By: #### R ENP, URTPRT, MG, UAMIC, URI ####[address] [place] [address] #### CBC, PTHNCA, VD25 ####[address] [address] Vitamin D 25 OHon 09-20-2017 Vitamin D 25 [place] 21.8 ng/mL Low 30.0-100.0 [facility] Comment on above: Result Comment: Refe rence Range:Vitamin D status Range Deficiency <20 ng/mL Mild Deficiency 20-30 ng/mL Sufficiency 30-100 ng/mL Toxicity >100 ng/mLPerformed at [address] [id number] [phone] Performed By: #### R ENP, URTPRT, MG, UAMIC, URI ####[address] [place], [place] [address]683 #### CBC, PTHNCA, VD25 ####[address] [address] CBCon 09-19-2017 Erythrocyte distribution width Auto Ratio (RBC) 15.8 % High 11.8-14.4 [facility] Comment on above: Performed By: #### R ENP, URTPRT, MG, UAMIC, URI ####[address] [place] [id number] #### CBC, PTHNCA, VD25 ####[address] [address] Hematocrit Auto Volume Fraction (Bld) 40.2 % Normal 36.3-47.1 [facility] Comment on above: Performed By: #### R ENP, URTPRT, MG, UAMIC, URI ####[address] [place], [place] 6786383 #### CBC, PTHNCA, VD25 ####[address] [address] Hemoglobin mass conc (Bld) 12.5 g/dL Normal 11.9-15.1 [facility] Comment on above: Performed By: #### R ENP, URTPRT, MG, UAMIC, URI ####[address] [place], [place] 8[address]83 #### CBC, PTHNCA, VD25 ####[address] [address] MCH Auto Entitic mass (RBC) 27.7 pg Normal 25.2-33.5 [facility] Comment on above: Performed By: #### R ENP, URTPRT, MG, UAMIC, URI ####[address] [place] [address] #### CBC, PTHNCA, VD25 ####[address] [id number] MCHC Auto mass conc (RBC) 31.1 g/dL Normal 28.4-34.8 [facility] Comment on above: Performed By: #### R ENP, URTPRT, MG, UAMIC, URI ####[address] [place], [place] [address] #### CBC, PTHNCA, VD25 ####[address] [id number] MCV Auto Entitic volume (RBC) 88.9 fL Normal 82.6-102.9 [facility] Comment on above: Performed By: #### R ENP, URTPRT, MG, UAMIC, URI ####[address] [place], [place] [address]6983 #### CBC, PTHNCA, VD25 ####[address] [address] NRBC Automated 0.0 per [address] [facility] Comment on above: Result Comment: Perf ormed at [address] [address] Performed By: #### R ENP, URTPRT, MG, UAMIC, URI ####[address] [place], [place] [address]83 #### CBC, PTHNCA, VD25 ####[address] [address] Platelet mean volume Auto Entitic volume (Bld) 10.0 fL Normal 8.1-13.5 [facility] Comment on above: Performed By: #### R ENP, URTPRT, MG, UAMIC, URI ####[address] [place], [place] 8[address]83 #### CBC, PTHNCA, VD25 ####[address] [id number] Platelets Auto #/vol (Bld) 392 10*3/uL Normal 138-453 [facility] Comment on above: Performed By: #### R ENP, URTPRT, MG, UAMIC, URI ####[address] [place] [address] #### CBC, PTHNCA, VD25 ####[address] [id number] RBC Auto #/vol (Bld) 4.52 10*6/uL Normal 3.95-5.11 [facility] Comment on above: Performed By: #### R ENP, URTPRT, MG, UAMIC, URI ####[address] [place], [place] 4234383 #### CBC, PTHNCA, VD25 ####[address] [id number] WBC Auto #/vol (Bld) 10.3 10*3/uL Normal 3.5-11.3 [facility] Comment on above: Performed By: #### R ENP, URTPRT, MG, UAMIC, URI ####[address] [place] [address] #### CBC, PTHNCA, VD25 ####[address] [id number] Magnesiumon 09-19-2017 Magnesium mass conc 2.0 mg/dL Normal 1.6-2.6 [facility] Comment on above: Result Comment: Perf ormed at [address] [place] [address] Performed By: #### R ENP, URTPRT, MG, UAMIC, URI ####[address] [place] [address] #### CBC, PTHNCA, VD25 ####[address] [address] Protein,Tot,Pawlet Uron 2017 Creatinine mass conc 142.4 mg/dL Normal 28.0-217.0 [facility] Comment on above: Performed By: #### R ENP, URTPRT, MG, UAMIC, URI ####[address] [place] [address] #### CBC, PTHNCA, VD25 ####[address] [address] Protein mass conc 7 mg/dL Normal [facility] Comment on above: Result Comment: No n ormal range established. Performed By: #### R ENP, URTPRT, MG, UAMIC, URI ####[address] [place] [address] #### CBC, PTHNCA, VD25 ####[address] [address] TP/Cre Ratio 0.05 Normal 0.00-0.20 [facility] Comment on above: Result Comment: Perf ormed at [address] [place] [address] Performed By: #### R ENP, URTPRT, MG, UAMIC, URI ####[address] [place] [address] #### CBC, PTHNCA, VD25 ####[address] [place] 2004[address] Renal Function Panelon 09-19 (cont.) Normal [facility] Comment on above: Result Comment: Aver age GFR for 60-69 years old: 85 mL/min/1.73sq mChronic Kidney Disease: <60 mL/min/1.73sq mKidney failure: <15 mL/min/1.73sq meGFR calculated using average adult body mass. Additional eGFR calculator available at:http://www.Traackr/multiple_crcl_2012.htm Performed By: #### R ENP, URTPRT, MG, UAMIC, URI ####[address] [place], [place] [address]83 #### CBC, PTHNCA, VD25 ####[address] [address] Albumin mass conc 4.0 g/dL Normal 3.5-5.2 [facility] Comment on above: Performed By: #### R ENP, URTPRT, MG, UAMIC, URI ####[address] [place] [address] #### CBC, PTHNCA, VD25 ####[address] [address] Anion gap 3 molar conc 11 mmol/L Normal 9-17 [facility] Comment on above: Performed By: #### R ENP, URTPRT, MG, UAMIC, URI ####[address] [place] [address] #### CBC, PTHNCA, VD25 ####[address] [address] BUN/CRE Ratio 25 High 9-20 [facility] Comment on above: Performed By: #### R ENP, URTPRT, MG, UAMIC, URI ####[address] [place] [address] #### CBC, PTHNCA, VD25 ####[address] [address] Calcium mass conc 9.3 mg/dL Normal 8.6-10.4 [facility] Comment on above: Performed By: #### R ENP, URTPRT, MG, UAMIC, URI ####[address] [place] [address] #### CBC, PTHNCA, VD25 ####[address] [address] Chloride molar conc 102 mmol/L Normal 98-107 [facility] Comment on above: Performed By: #### R ENP, URTPRT, MG, UAMIC, URI ####[address] [place] [address] #### CBC, PTHNCA, VD25 ####[address] [address] CO2 molar conc 27 mmol/L Normal 20-31 [facility] Comment on above: Performed By: #### R ENP, URTPRT, MG, UAMIC, URI ####[address] [place] [address] #### CBC, PTHNCA, VD25 ####[address] [address] Creatinine mass conc 1.00 mg/dL High 0.50-0.90 [facility] Comment on above: Performed By: #### R ENP, URTPRT, MG, UAMIC, URI ####[address] [place] [address] #### CBC, PTHNCA, VD25 ####[address] [address] GFR, Amer >60 Normal >60 [facility] Comment on above: Performed By: #### R ENP, URTPRT, MG, UAMIC, URI ####[address] [place] [address] #### CBC, PTHNCA, VD25 ####[address] [address] GFR,non Amer 55 mL/min Low >60 [facility] Comment on above: Performed By: #### R ENP, URTPRT, MG, UAMIC, URI ####[address] [place] [address] #### CBC, PTHNCA, VD25 ####[address] [address] Glucose mass conc 188 mg/dL High 70-99 [facility] Comment on above: Performed By: #### R ENP, URTPRT, MG, UAMIC, URI ####[address] [place] [address] #### CBC, PTHNCA, VD25 ####[address] [address] Phosphorus, Inorg. 3.3 mg/dL Normal 2.6-4.5 [facility] Comment on above: Performed By: #### R ENP, URTPRT, MG, UAMIC, URI ####[address] [place] [address] #### CBC, PTHNCA, VD25 ####[address] [address] Potassium molar conc 3.8 mmol/L Normal 3.7-5.3 [facility] Comment on above: Performed By: #### R ENP, URTPRT, MG, UAMIC, URI ####[address] [place], [place] [address] #### CBC, PTHNCA, VD25 ####[address] [address] Sodium molar conc 140 mmol/L Normal 135-144 [facility] Comment on above: Performed By: #### R ENP, URTPRT, MG, UAMIC, URI ####[address] [place], [place] 5970[address] #### [place], PTHNCA, VD25 ####[address] [address] Staging: Normal [facility] Comment on above: Result Comment: Stag e 1: Some kidney damage normal GFRStage 2: Mild kidney damage GFR 60-89Stage 3: Moderate kidney damage GFR 30-59Stage 4: Severe kidney damage GFR 15-29Stage 5: Severe kidney damage GFR <15ESRD - chronic treatment by dialysis or transplantPerformed at [address] [place] [address] Performed By: #### R ENP, URTPRT, MG, UAMIC, URI ####[address] [place], [place] [address] #### [place], PTHNCA, VD25 ####[address] [address] Urea nitrogen mass conc 25 mg/dL High 8-23 [facility] Comment on above: Performed By: #### R ENP, URTPRT, MG, UAMIC, URI ####[address] [place], [place] [address] #### CBC, PTHNCA, VD25 ####[id number] [place] [address] Uric Acidon 09-19-2017 Urate mass conc 4.9 mg/dL Normal 2.4-5.7 [facility] Comment on above: Result Comment: Perf ormed at [address] [place] [address] Performed By: #### R ENP, URTPRT, MG, UAMIC, URI ####[address] , [place] [address] #### CBC, PTHNCA, VD25 ####[address] [address] Urinalysis w/ Microon 2017 ----- Normal [facility] Comment on above: Performed By: #### R ENP, URTPRT, MG, UAMIC, URI ####[address] , [place] [address] #### CBC, PTHNCA, VD25 ####[address] [address] Acetoacetic Acid,Ur Negative Normal NEG [facility] Comment on above: Performed By: #### R ENP, URTPRT, MG, UAMIC, URI ####[address] , [facility]83 #### CBC, PTHNCA, VD25 ####[address] [address] Bacteria TRACE Abnormal NONE [facility] Comment on above: Performed By: #### R ENP, URTPRT, MG, UAMIC, URI ####[address] , [facility]83 #### CBC, PTHNCA, VD25 ####[address] [address] Bilirubin, SemiQt,Ur Negative Normal NEG [facility] Comment on above: Performed By: #### R ENP, URTPRT, MG, UAMIC, URI ####[address] [place] [address] #### CBC, PTHNCA, VD25 ####[address] [address] Color YE[address] YEL [facility] Comment on above: Performed By: #### R ENP, URTPRT, MG, UAMIC, URI ####[address] [place] [address] #### CBC, PTHNCA, VD25 ####[address] [address] Epithelial cells 0 TO 2 Normal 0-25 [facility] Comment on above: Performed By: #### R ENP, URTPRT, MG, UAMIC, URI ####[address] [place] [address] #### CBC, PTHNCA, VD25 ####[address] [address] Glucose,Semi-qnt,Ur Negative Normal NEG [facility] Comment on above: Performed By: #### R ENP, URTPRT, MG, UAMIC, URI ####[address] [place] [address] #### CBC, PTHNCA, VD25 ####[address] [address] Hemoglobin, Ur Negative Normal NEG [facility] Comment on above: Performed By: #### R ENP, URTPRT, MG, UAMIC, URI ####[address] [place] [address] #### CBC, PTHNCA, VD25 ####[address] [address] Leuckocyte Esterase Negative Normal NEG [facility] Comment on above: Performed By: #### R ENP, URTPRT, MG, UAMIC, URI ####[address] [place] [address] #### CBC, PTHNCA, VD25 ####[address] [address] Mucus Strands TRACE Abnormal NONE [facility] Comment on above: Result Comment: Perf ormed at [address] [place] [address] Performed By: #### R ENP, URTPRT, MG, UAMIC, URI ####[address] [place] [address] #### CBC, PTHNCA, VD25 ####[address] [address] Nitrite,Ur Negative Normal NEG [facility] Comment on above: Performed By: #### R ENP, URTPRT, MG, UAMIC, URI ####[address] [place] [address] #### CBC, PTHNCA, VD25 ####[address] [address] PH,Ur 6.0 Normal 5.0-9.0 [facility] Comment on above: Performed By: #### R ENP, URTPRT, MG, UAMIC, URI ####[address] [place] [address] #### CBC, PTHNCA, VD25 ####[address] [address] Protein mass conc Negative Normal NEG [facility] Comment on above: Performed By: #### R ENP, URTPRT, MG, UAMIC, URI ####[address] [place] [address] #### CBC, PTHNCA, VD25 ####[address] [address] RBC Test strip #/vol (U) 0 TO 2 Normal 0-2 [facility] Comment on above: Performed By: #### R ENP, URTPRT, MG, UAMIC, URI ####[address] [place] [address] #### CBC, PTHNCA, VD25 ####[address] [address] Spec. [place],Ur 1.025 High 1.010-1.020 [facility] Comment on above: Performed By: #### R ENP, URTPRT, MG, UAMIC, URI ####[address] [place] [address] #### CBC, PTHNCA, VD25 ####[address] [address] Turbidity CLEAR Normal CLEAR [facility] Comment on above: Performed By: #### R ENP, URTPRT, MG, UAMIC, URI ####[address] [place] [address] #### CBC, PTHNCA, VD25 ####[address] [address] Urine WBC's 0 TO 2 Normal 0-5 [facility] Comment on above: Performed By: #### R ENP, URTPRT, MG, UAMIC, URI ####[address] [place] [address] #### CBC, PTHNCA, VD25 ####[address] [address] Urobilinogen,Ur Normal Normal NORM [facility] Comment on above: Performed By: #### R ENP, URTPRT, MG, UAMIC, URI ####[address] [place] [address] #### CBC, PTHNCA, VD25 ####[address] [address] Amorphous Sediment NOT REPORTED Normal NONE [facility] Comment on above: Performed By: #### R ENP, URTPRT, MG, UAMIC, URI ####[address] [place] [address] #### CBC, PTHNCA, VD25 ####[address] [address] Casts NOT REPORTED Normal [facility] Comment on above: Performed By: #### R ENP, URTPRT, MG, UAMIC, URI ####[address] [place] [address] #### CBC, PTHNCA, VD25 ####[address] [address] Comment NOT RE[address] Normal [facility] Comment on above: Performed By: #### R ENP, URTPRT, MG, UAMIC, URI ####[address] [place] [address] #### CBC, PTHNCA, VD25 ####[address] [address] Crystals NOT REPORTED Normal NONE [facility] Comment on above: Performed By: #### R ENP, URTPRT, MG, UAMIC, URI ####[address] [place] [address] #### CBC, PTHNCA, VD25 ####[address] [address] Epithelial, Renal NOT REPORTED Normal 0 [facility] Comment on above: Performed By: #### R ENP, URTPRT, MG, UAMIC, URI ####[address] [place] [address] #### CBC, PTHNCA, VD25 ####[address] [address] Other Observations NOT [facility]PORTED [facility] above: Performed By: #### R ENP, URTPRT, MG, UAMIC, URI ####[address] [place] [address] #### CBC, PTHNCA, VD25 ####[address] [address] Trichomonas NOT REPORTED Normal NONE [facility] Comment on above: Performed By: #### R ENP, URTPRT, MG, UAMIC, URI ####[address] [place] [address] #### CBC, PTHNCA, VD25 ####[address] [address] Yeast NOT REPORTED Normal NONE [facility] Comment on above: Performed By: #### R ENP, URTPRT, MG, UAMIC, URI ####[address] [place] [address] #### CBC, PTHNCA, VD25 ####[id number] [place] [address] Vital Signs Date Time Vital Sign Value Performing Clinician Facility 04-19-2024 15:50-0500 Body height 160.7 cm Rajesh Mercer MD Work Phone: [facility] 04-19-2024 15:50-0500 Body mass index (BMI) [Ratio] 48.86 kg/m2 Rajesh Mercer MD Work Phone: [facility] 04-19-2024 15:50-0500 Body weight 126.1 kg Rajesh Mercer MD Work Phone: [facility] 04-19-2024 15:50-0500 Diastolic blood pressure 70 mm[Hg] Rajesh Mercer MD Work Phone: [facility] 04-19-2024 15:50-0500 Heart rate 90 /min Rajesh Mercer MD Work Phone: [facility] 04-19-2024 15:50-0500 SaO2% (BldA) [Mass fraction] 96 % Rajesh Mercer MD Work Phone: [facility] 04-19-2024 15:50-0500 Systolic blood pressure 122 mm[Hg] Rajesh Mercer MD Work Phone: [facility] 02-26-2024 12:05-0400 Body mass index (BMI) [Ratio] 48.22 kg/m2 Gina Bustillo MD Work Phone: [facility] 02-26-2024 12:05-0400 Body weight 127.42 kg Gina Bustillo MD Work Phone: [facility] 02-26-2024 12:05-0400 Diastolic blood pressure 81 mm[Hg] Gina Bustillo MD Work Phone: [facility] 02-26-2024 12:05-0400 Heart rate 81 /min Gina Bustillo MD Work Phone: [facility] 02-26-2024 12:05-0400 Systolic blood pressure 118 mm[Hg] Gina Bustillo MD Work Phone: [facility] 01-16-2024 12:43-0400 Body height 160.7 cm Gina MCGREGOR Work Phone: [facility] 01-16-2024 12:43-0400 Body mass index (BMI) [Ratio] 50.47 kg/m2 Gina Hemmer PA Work Phone: [facility] 01-16-2024 12:43-0400 Body weight 130.27 kg Gina Hemmer PA Work Phone: [facility] 01-16-2024 12:43-0400 Diastolic blood pressure 76 mm[Hg] Gina Hemmer PA Work Phone: [facility] 01-16-2024 12:43-0400 Heart rate 89 /min Gina Hemmer PA Work Phone: [facility] 01-16-2024 12:43-0400 Respiratory rate 16 /min Gina Hemmer PA Work Phone: [facility] 01-16-2024 12:43-0400 SaO2% (BldA) [Mass fraction] 96 % Gina Hemmer PA Work Phone: [facility] 01-16-2024 12:43-0400 Systolic blood pressure 124 mm[Hg] Gina Bergmer PA Work Phone: [facility] 11-13-2023 15:48-0400 Body height 163.83 cm II Rajesh Mercer Work Phone: [facility] 11-13-2023 15:48-0400 Body mass index (BMI) [Ratio] 48.8 kg/m2 II Rajesh Mercer Work Phone: [facility] 11-13-2023 15:48-0400 Body temperature 97.3 [degF] II Rajesh Mercer Work Phone: [facility] 11-13-2023 15:48-0400 Body weight 131.08 kg II Rajesh Mercer Work Phone: [facility] 11-13-2023 15:48-0400 Diastolic blood pressure 78 mm[Hg] II Rajesh Mercer Work Phone: [facility] 11-13-2023 15:48-0400 Heart rate 88 /min II Rajesh Mercre Work Phone: [facility] 11-13-2023 15:48-0400 Respiratory rate 20 /min II Rajesh Mercer Work Phone: [facility] 11-13-2023 15:48-0400 SaO2% (BldA) [Mass fraction] 95 % II Rajesh Mercer Work Phone: [facility] 11-13-2023 15:48-0400 Systolic blood pressure 148 mm[Hg] II Rajesh Mercer Work Phone: [facility] 08-08-2023 13:25-0400 Body mass index (BMI) [Ratio] 49.88 kg/m2 Maggi Fabian SENIOR DIRECTOR FINANCE-BORDER MACHINE OPERATOR Work Phone: [employer] 08-08-2023 13:25-0400 Body weight 131.81 kg Maggi Fabian SENIOR DIRECTOR FINANCE-BORDER MACHINE OPERATOR Work Phone: [facility] 08-08-2023 13:25-0400 Diastolic blood pressure 82 mm[Hg] Maggi Fabian SENIOR DIRECTOR FINANCE-BORDER MACHINE OPERATOR Work Phone: [employer] 08-08-2023 13:25-0400 Heart rate 82 /min Maggi Fabian SENIOR DIRECTOR FINANCE-BORDER MACHINE OPERATOR Work Phone: [employer] 08-08-2023 13:25-0400 Systolic blood pressure 142 mm[Hg] Maggi Fabian SENIOR DIRECTOR FINANCE-BORDER MACHINE OPERATOR Work Phone: [employer] 07-21-2023 15:56-0400 Body height 163.83 cm II Rajesh Mercer Work Phone: [facility] 07-21-2023 15:56-0400 Body mass index (BMI) [Ratio] 48.9 kg/m2 II Rajesh Mercer Work Phone: [facility] 07-21-2023 15:56-0400 Body temperature 97.5 [degF] II Rajesh Mercer Work Phone: [facility] 07-21-2023 15:56-0400 Body weight 131.25 kg II Rajesh Mercer Work Phone: [facility] 07-21-2023 15:56-0400 Diastolic blood pressure 78 mm[Hg] II Rajesh Mercer Work Phone: [facility] 07-21-2023 15:56-0400 Heart rate 81 /min II Rajesh Mercer Work Phone: [facility] 07-21-2023 15:56-0400 Respiratory rate 20 /min II Rajesh Mercer Work Phone: [facility] 07-21-2023 15:56-0400 SaO2% (BldA) [Mass fraction] 94 % II Rajesh Mercer Work Phone: [facility] 07-21-2023 15:56-0400 Systolic blood pressure 142 mm[Hg] II Rajesh Mercer Work Phone: [facility] 03-04-2023 15:15-0400 Body height 163.83 cm Qamar Rowan Other [employer] Other 03-04-2023 15:15-0400 Body mass index (BMI) [Ratio] 49.34 kg/m2 Qamar Rowan Other [employer] Other 03-04-2023 15:15-0400 Body temperature 98 [degF] Qamar Pandano Other [employer] Other 03-04-2023 15:15-0400 Body weight 132.45 kg Qamar Pandano Other [employer] Other 03-04-2023 15:15-0400 Diastolic blood pressure 78 mm[Hg] Qamar Pandano Other [employer] Other 03-04-2023 15:15-0400 Respiratory rate 20 /min Qamar Pandano Other [employer] Other 03-04-2023 15:15-0400 SaO2% (BldA) [Mass fraction] 96 % Qamar Pandano Other [employer] Other 03-04-2023 15:15-0400 Systolic blood pressure 148 mm[Hg] Qamar Harpal Other [employer] Other 11-27-2022 16:00-0400 Body height 163.83 cm Dilan Sergio Other [employer] Other 11-27-2022 16:00-0400 Body mass index (BMI) [Ratio] 49.58 kg/m2 Dilan Sergio Other [employer] Other 11-27-2022 16:00-0400 Body temperature 97.2 [degF] Dilan Sergio Other [employer] Other 11-27-2022 16:00-0400 Body weight 133.09 kg Dilan Sergio Other [employer] Other 11-27-2022 16:00-0400 Diastolic blood pressure 46 mm[Hg] Dilan Sergio Other [employer] Other 11-27-2022 16:00-0400 Respiratory rate 20 /min Dilan Sergio Other [employer] Other 11-27-2022 16:00-0400 SaO2% (BldA) [Mass fraction] 95 % Dilan Sergio Other [employer] Other 11-27-2022 16:00-0400 Systolic blood pressure 149 mm[Hg] Dilan Sergio Other [employer] Other 09-03-2022 16:15-0400 Body height 163.83 cm Mehraner Harpal Other [employer] Other 09-03-2022 16:15-0400 Body mass index (BMI) [Ratio] 49 kg/m2 Christchazer Harpal Other [employer] Other 09-03-2022 16:15-0400 Body temperature 97.2 [degF] Mehraner Harpal Other [employer] Other 09-03-2022 16:15-0400 Body weight 131.54 kg Mehraner Harpal Other [employer] Other 09-03-2022 16:15-0400 Diastolic blood pressure 73 mm[Hg] Mehraner Harpal Other [employer] Other 09-03-2022 16:15-0400 Respiratory rate 20 /min Mehraner Harpal Other [employer] Other 09-03-2022 16:15-0400 SaO2% (BldA) [Mass fraction] 96 % Mehraner Harpal Other [employer] Other 09-03-2022 16:15-0400 Systolic blood pressure 123 mm[Hg] Mehraner Harpal Other [employer] Other 08-29-2022 14:40-0400 Body height 163.83 cm Dilan Sergio Other [employer] Other 08-29-2022 14:40-0400 Body mass index (BMI) [Ratio] 50.22 kg/m2 Dilan Sergio Other [employer] Other 08-29-2022 14:40-0400 Body temperature 97.6 [degF] Dilan Sergio Other [employer] Other 08-29-2022 14:40-0400 Body weight 134.81 kg Dilan Sergio Other [employer] Other 08-29-2022 14:40-0400 Diastolic blood pressure 72 mm[Hg] Dilan Sergio Other [employer] Other 08-29-2022 14:40-0400 Respiratory rate 20 /min Dilan Sergio Other [employer] Other 08-29-2022 14:40-0400 SaO2% (BldA) [Mass fraction] 91 % Dilan Sergio Other [employer] Other 08-29-2022 14:40-0400 Systolic blood pressure 140 mm[Hg] Dilan Sergio Other [employer] Other 07-15-2022 16:00-0400 Body height 163.83 cm Dilan Sergio Other [employer] Other 07-15-2022 16:00-0400 Body mass index (BMI) [Ratio] 49.82 kg/m2 Dilan Sergio Other [employer] Other 07-15-2022 16:00-0400 Body temperature 97.3 [degF] Dilan Sergio Other [employer] Other 07-15-2022 16:00-0400 Body weight 133.72 kg Dilan Sergio Other [employer] Other 07-15-2022 16:00-0400 Diastolic blood pressure 60 mm[Hg] Dilan Sergio Other [employer] Other 07-15-2022 16:00-0400 Respiratory rate 20 /min Dilan Sergio Other [employer] Other 07-15-2022 16:00-0400 SaO2% (BldA) [Mass fraction] 96 % Dilan Sergio Other [employer] Other 07-15-2022 16:00-0400 Systolic blood pressure 130 mm[Hg] Dilan Sergio Other [employer] Other 03-04-2022 14:30-0400 Body height 163.83 cm Qaamr Rowan Other [employer] Other 03-04-2022 14:30-0400 Body mass index (BMI) [Ratio] 49.68 kg/m2 Qmaar Rowan Other [employer] Other 03-04-2022 14:30-0400 Body temperature 97.3 [degF] Qamar Rowan Other [employer] Other 03-04-2022 14:30-0400 Body weight 133.36 kg Qamar Rowan Other [employer] Other 03-04-2022 14:30-0400 Diastolic blood pressure 84 mm[Hg] Qamar Pandano Other [employer] Other 03-04-2022 14:30-0400 Respiratory rate 20 /min Hectorjaimie Pandano Other [employer] Other 03-04-2022 14:30-0400 SaO2% (BldA) [Mass fraction] 96 % Qamar Rowan Other [employer] Other 03-04-2022 14:30-0400 Systolic blood pressure 156 mm[Hg] Qamar Pandano Other [employer] Other 02-21-2022 16:20-0400 Body height 163.83 cm Dilan Sergio Other [employer] Other 02-21-2022 16:20-0400 Body mass index (BMI) [Ratio] 51.07 kg/m2 Dilan Sergio Other [employer] Other 02-21-2022 16:20-0400 Body temperature 97.1 [degF] Dilan Sergio Other [employer] Other 02-21-2022 16:20-0400 Body weight 137.08 kg Dilan Sergio Other [employer] Other 02-21-2022 16:20-0400 Diastolic blood pressure 81 mm[Hg] Dilan Sergio Other [employer] Other 02-21-2022 16:20-0400 Respiratory rate 20 /min Dilan Sergio Other [employer] Other 02-21-2022 16:20-0400 SaO2% (BldA) [Mass fraction] 96 % Dilan Sergio Other [employer] Other 02-21-2022 16:20-0400 Systolic blood pressure 138 mm[Hg] Dilan Sergio Other [employer] Other 10-23-2021 17:20-0400 Body height 163.83 cm Dilan Sergio Other [employer] Other 10-23-2021 17:20-0400 Body mass index (BMI) [Ratio] 50.12 kg/m2 Dilan Sergio Other [employer] Other 10-23-2021 17:20-0400 Body temperature 97.2 [degF] Dilan Sergio Other [employer] Other 10-23-2021 17:20-0400 Body weight 134.54 kg Dilan Sergio Other [employer] Other 10-23-2021 17:20-0400 Diastolic blood pressure 84 mm[Hg] Dilan Sergio Other [employer] Other 10-23-2021 17:20-0400 Respiratory rate 20 /min Dilan Sergio Other [employer] Other 10-23-2021 17:20-0400 SaO2% (BldA) [Mass fraction] 94 % Dilan Sergio Other [employer] Other 10-23-2021 17:20-0400 Systolic blood pressure 171 mm[Hg] Dilan Sergio Other [employer] Other 10-02-2021 15:15-0400 Body height 163.83 cm Mehraner Harpal Other [employer] Other 10-02-2021 15:15-0400 Body mass index (BMI) [Ratio] 49.51 kg/m2 Mehraner Harpal Other [employer] Other 10-02-2021 15:15-0400 Body temperature 96.5 [degF] Mehraner Harpal Other [employer] Other 10-02-2021 15:15-0400 Body weight 132.9 kg Mehraner Harpal Other [employer] Other 10-02-2021 15:15-0400 Diastolic blood pressure 89 mm[Hg] Mehraner Harpal Other [employer] Other 10-02-2021 15:15-0400 Respiratory rate 20 /min Mehraner Harpal Other [employer] Other 10-02-2021 15:15-0400 SaO2% (BldA) [Mass fraction] 95 % Mehraner Harpal Other [employer] Other 10-02-2021 15:15-0400 Systolic blood pressure 154 mm[Hg] Mehraner Harpal Other [employer] Other 04-18-2021 17:20-0500 Body height 163.83 cm Dilan Sergio Other [employer] Other 04-18-2021 17:20-0500 Body mass index (BMI) [Ratio] 49.85 kg/m2 Dilan Sergio Other [employer] Other 04-18-2021 17:20-0500 Body temperature 97 [degF] Dilan Sergio Other [employer] Other 04-18-2021 17:20-0500 Body weight 133.81 kg Dilan Sergio Other [employer] Other 04-18-2021 17:20-0500 Diastolic blood pressure 70 mm[Hg] Dilan Sergio Other [employer] Other 04-18-2021 17:20-0500 Respiratory rate 24 /min Dilan Sergio Other [employer] Other 04-18-2021 17:20-0500 SaO2% (BldA) [Mass fraction] 97 % Dilan Sergio Other [employer] Other 04-18-2021 17:20-0500 Systolic blood pressure 130 mm[Hg] Dilan Sergio Other [employer] Other 04-02-2021 15:30-0500 Body height 163.83 cm Qamar Rowan Other [employer] Other 04-02-2021 15:30-0500 Body mass index (BMI) [Ratio] 49.51 kg/m2 Qamar Rowan Other [employer] Other 04-02-2021 15:30-0500 Body temperature 97.1 [degF] Qamar Rowan Other [employer] Other 04-02-2021 15:30-0500 Body weight 132.9 kg Qamar Pandano Other [employer] Other 04-02-2021 15:30-0500 Diastolic blood pressure 88 mm[Hg] Qamar Pandano Other [employer] Other 04-02-2021 15:30-0500 Respiratory rate 20 /min Qamar Rowan Other [employer] Other 04-02-2021 15:30-0500 SaO2% (BldA) [Mass fraction] 97 % Qamar Rowan Other [employer] Other 04-02-2021 15:30-0500 Systolic blood pressure 172 mm[Hg] Qamar Rowan Other [employer] Other 11-27-2020 14:25-0400 Body height 162.79 cm No PCP None [facility] Work Phone: 11-27-2020 14:25-0400 Body mass index (BMI) [Ratio] 50.57 kg/m2 No PCP None [facility] Work Phone: 11-27-2020 14:25-0400 Body surface area Derived from formula 2.31 m2 No PCP None RX[facility] Work Phone: 11-27-2020 14:25-0400 Body temperature 36.4 [degF] No PCP None [facility] Work Phone: 11-27-2020 14:25-0400 Body weight 134.01 kg No PCP None [facility] Work Phone: 11-27-2020 14:25-0400 Diastolic blood pressure 79 mm[Hg] No PCP None [facility] Work Phone: 11-27-2020 14:25-0400 Heart rate 75 /min No PCP None [facility] Work Phone: 11-27-2020 14:25-0400 Respiratory rate 16 /min No PCP None [facility] Work Phone: 11-27-2020 14:25-0400 SaO2% (BldA) [Mass fraction] 96 % No PCP None FE[facility]aghx[facility] Work Phone: 11-27-2020 14:25-0400 Systolic blood pressure 166 mm[Hg] No PCP None [facility] Work Phone: 11-27-2020 14:25-0400 4 1 No PCP None [facility] Work Phone: Comment on above: [employer] 1950 23:00-0500 >na< Reyna Rdz Dept. of Roe tology Encounters Encounter Date Encounter Type Care Provider Facility Start: 05-21-2024 ambulatory Dez Gallagher Jr [facility] [place] Start: 04-22-2024 End: 04-22-2024 Office outpatient visit 10 minutes Kailee Nova DPM Work Phone: [facility] Comment on above: Ingrown toenail (Shy nimco Dx); Left foot pain Start: 04-22-2024 End: 04-22-2024 ambulatory KAILEE NOVA Not Available Start: 04-22-2024 End: 04-22-2024 Bamboo flowsheet Kailee Nova DPM Work Phone: [facility] Start: 04-22-2024 End: 04-22-2024 Bamboo flowsheet Kailee Nova DPM Work Phone: [facility] Start: 04-19-2024 End: 04-19-2024 Assay of hemosiderin, quant Rajesh Mercer MD Work Phone: [facility] Start: 04-19-2024 End: 04-19-2024 Patient encounter procedure Rajesh Mercer MD Work Phone: [facility] Comment on above: Routine general medi nito examination at health care facility (Primary Dx); ACP (advance care planning); Primary osteoarthritis of both knees; Sore on scalp Start: 04-19-2024 End: 04-19-2024 ambulatory RAJESH MERCER Not Available Start: 04-19-2024 End: 04-19-2024 Bamboo flowsheet Rajesh Mercer MD Work Phone: [facility] Start: 04-19-2024 End: 04-19-2024 Bamboo flowsheet Rajesh Mercer MD Work Phone: [facility] Start: 04-13-2024 End: 04-13-2024 Orders Only Gina Bustillo MD Work Phone: [facility] Comment on above: Tinea cruris (Primar y Dx) Start: 04-12-2024 End: 04-12-2024 ambulatory Rajesh Mercer Facility:[facility] Start: 03-25-2024 End: 03-25-2024 Office outpatient visit 15 minutes Kailee Nova DPM Work Phone: [facility] Comment on above: Ingrown toenail (Shy nimco Dx); Left foot pain; Onychomycosis; Type 2 diabetes mellitus without complication, without long-term current use of insulin ([facility] Start: 03-25-2024 End: 03-25-2024 ambulatory KAILEE NOVA Not Available Start: 03-25-2024 End: 03-25-2024 Bamboo flowsheet Kailee Nova DPM Work Phone: [facility] Start: 03-25-2024 End: 03-25-2024 Bamboo flowsheet Kailee Nova DPM Work Phone: [facility] Start: 03-03-2024 ambulatory Dez Gallagher Jr [facility] [place] Start: 03-03-2024 End: 03-03-2024 Refill [facility]ustillo MD [facility] Comment on above: Type 2 diabetes gauri itus with hypoglycemia without coma, without long-term current use of insulin ([facility] Start: 03-01-2024 End: 03-01-2024 Refill Jemima Friday BRAND STRATEGIST Work Phone: [facility] Comment on above: Primary osteoarthrit is of both knees (Primary Dx) Start: 02-26-2024 End: 02-26-2024 Office outpatient visit 25 minutes Gina Bustillo MD [facility] Comment on above: Type 2 diabetes gauri itus with hypoglycemia without coma, without long-term current use of insulin ([facility]) (Primary Dx); Primary hypertension; Mixed hyperlipidemia Start: 02-26-2024 End: 02-26-2024 ambulatory GINA BUSTILLO [facility] Start: 02-24-2024 End: 02-24-2024 Office outpatient visit 10 minutes Kailee Nova DPM Work Phone: [facility] Comment on above: Ingrown toenail (Shy nimco Dx); Left foot pain Start: 02-24-2024 End: 02-24-2024 ambulatory KAILEE NOVA Not Available Start: 01-29-2024 End: 01-29-2024 Refill Gina MCGREGOR Work Phone: [facility] Comment on above: Primary osteoarthrit is of both knees Start: 01-26-2024 End: 01-26-2024 Office outpatient visit 10 minutes Kailee Nova DPM Work Phone: [facility] Comment on above: Ingrown toenail (Shy nimco Dx); Left foot pain Start: 01-26-2024 End: 01-26-2024 ambulatory KAILEE NOVA Not Available Start: 01-26-2024 End: 01-26-2024 Bamboo flowsheet Kailee Nova DPM Work Phone: [facility] Start: 01-26-2024 End: 01-26-2024 Bamboo flowsheet Kailee Nova DPM Work Phone: [facility] Start: 01-16-2024 End: 01-16-2024 Bamboo flowsheet Gina Zarate PA Work Phone: [facility] Start: 01-16-2024 End: 01-16-2024 Bamboo flowsheet Gina Zarate PA Work Phone: [facility] Start: 01-16-2024 End: 01-16-2024 Office outpatient visit 25 minutes Gina MCGREGOR Work Phone: [facility] Comment on above: Acute pain of right knee (Primary Dx); Primary osteoarthritis of both knees; Sore on scalp; Diarrhea, unspecified type; Morbid (severe) obesity due to excess calories (CMS/HCC); Body mass index (BMI) 50.0-59.9, adult (CMS/HCC); Chronic obstructive pulmonary disease, unspecified (CMS/HCC); Major depressive disorder, recurrent, moderate (HCC) (CMS/HCC); Vitreous hemorrhage, unspecified eye (CMS/HCC) Start: 01-16-2024 End: 01-16-2024 ambulatory GINA ZARATE Not Available Start: 12-31-2023 ambulatory Dez Gallagher Jr [facility] [place] Start: 12-08-2023 End: 12-08-2023 ambulatory KAILEE NOVA Not Available Start: 11-25-2023 End: 11-25-2023 ambulatory MAGGI PERALTA [facility] Start: 11-13-2023 End: 11-13-2023 ambulatory II Rajesh Ruslan Work Phone: [facility] Work Phone: Start: 11-13-2023 End: 11-13-2023 Patient encounter procedure II Rajesh Mercer Work Phone: [facility] Work Phone: Start: 11-10-2023 End: 11-10-2023 Patient encounter procedure II Rajesh Mercer Work Phone: [facility] [place] Work Phone: Start: 11-10-2023 End: 11-10-2023 ambulatory Dilan Sergio Facility:[facility] Start: 10-22-2023 End: 10-22-2023 ambulatory KAILEE NOVA Not Available Start: 09-10-2023 End: 09-10-2023 ambulatory KAILEE NOVA Not Available Start: 09-03-2023 End: 09-03-2023 ambulatory [facility] Start: 09-03-2023 End: 09-03-2023 Office outpatient visit 25 minutes Reyna Rdz MD Work Phone: [facility] Comment on above: Fissure in skin (Shy nimco Dx); Encounter for screening for malignant neoplasm of skin; Personal history of malignant melanoma of skin; Family history of melanoma; Hemangioma of skin; Melanocytic nevus, unspecified location; Lentigo; Seborrheic keratosis; Scar conditions and fibrosis of skin Start: 08-08-2023 End: 08-08-[address] [facility] Start: 08-08-2023 End: 08-08-2023 Office outpatient visit 25 minutes [facility] SENIOR DIRECTOR FINANCE-BORDER MACHINE OPERATOR Work Phone: [facility] Comment on above: Type 2 diabetes gauri itus with hyperglycemia, with long-term current use of insulin ([facility] (Primary Dx); Primary hypertension Start: 07-26-2023 Refill Gina rodarte MD Work [facility]: [facility] Comment on above: Type 2 diabetes gauri itus with hyperglycemia, with long-term current use of insulin ([facility]) Start: 07-24-2023 End: 07-24-2023 ambulatory KAILEE NOVA Not Available Start: 07-21-2023 End: 07-21-2023 Patient encounter procedure II Rajesh Mercer Work Phone: [facility] Work Phone: Start: 07-21-2023 End: 07-21-2023 ambulatory II Rajesh Mercer Work Phone: [facility] Work Phone: Start: 07-21-2023 End: 07-21-2023 ambulatory II Rajesh Mercer Work Phone: [facility] Work Phone: Start: 07-21-2023 End: 07-21-2023 Patient encounter procedure II Rajesh Mercer Work Phone: [facility] Work Phone: Start: 07-18-2023 End: 07-18-2023 Patient encounter procedure II Rajesh Mercer Work Phone: [facility] [place] Work Phone: Start: 07-18-2023 End: 07-18-2023 ambulatory II Rajesh Mercer Work Phone: [facility] Work Phone: Start: 2023 Refill Gina rodarte MD Work Phone: [facility] Comment on above: Type 2 diabetes gauri itus with hypoglycemia without coma, without long-term current use of insulin ([facility]) (Primary Dx) Start: 06-29-2023 Refill Maggi Peralta APRN-BORDER MACHINE OPERATOR Work Phone: [facility] Comment on above: Type 2 diabetes gauri itus with hyperglycemia, with long-term current use of insulin ([facility]) Start: 06-12-2023 End: 06-12-2023 ambulatory KAILEE NOVA Not Available Start: 03-04-2023 End: 03-04-2023 ambulatory Christopher Harpal Other [employer] Other Start: 03-04-2023 Office outpatient vi sit 15 minutes Christjaimie Pandano [facility] Start: 03-03-2023 End: 03-03-2023 ambulatory REYNA E [facility] Start: 03-03-2023 End: 03-03-2023 Office outpatient visit 25 minutes Reyna Rdz MD Work Phone: [facility] Comment on above: Furuncle (Primary Dx ); Melanocytic nevus, unspecified location; Lentigo; Hemangioma of other sites; Seborrheic keratosis; Scar conditions and fibrosis of skin; Personal history of malignant melanoma of skin Start: 12-20-2022 End: 12-20-2022 ambulatory Dilan Sergio Other [employer] Other Start: 12-20-2022 Telephone encounter Dilan Sergio [facility] Start: 12-17-2022 End: 12-17-2022 ambulatory Dilan Sergio Other [employer] Other Start: 12-17-2022 Telephone encounter Dilan Sergio [facility] Start: 11-27-2022 End: 11-27-2022 ambulatory Dilan Sergio Other [employer] Other Start: 11-27-2022 Office outpatient vi sit 25 minutes Dilan Sergio [facility] Start: 09-09-2022 ambulatory Reyna Zhou ity:[id number] Start: 09-03-2022 End: 09-03-2022 ambulatory Christopher Harpal Other [employer] Other Start: 09-03-2022 Office outpatient vi sit 15 minutes Qamar Foremandano [facility] Start: 08-29-2022 End: 08-29-2022 ambulatory Dilan Sergio Other [employer] Other Start: 08-29-2022 Office outpatient vi sit 15 minutes Dilan Sergio [facility] [place] Start: 08-26-2022 ambulatory Rajesh Mercer II Facility:[id number] Start: 08-26-2022 ambulatory Rajesh Mercer II Facility:[id number] Start: 08-19-2022 End: 08-19-2022 ambulatory Dilan Sergio Other [employer] Other Start: 08-19-2022 Telephone encounter Dilan Sergio [facility] Start: 07-15-2022 End: 07-15-2022 ambulatory Dilan Sergio Other [employer] Other Start: 07-15-2022 Office outpatient vi sit 25 minutes Dilan Sergio [facility] Start: 07-13-2022 End: 07-13-2022 ambulatory II Rajesh Mercer Work Phone: [facility] [employer] Work Phone: Start: 07-13-2022 End: 07-13-2022 Patient encounter procedure II Rajesh Mercer Work Phone: [facility] [employer] Work Phone: Start: 07-10-2022 ambulatory Rajesh Mercer II Facility:[id number] Start: 07-09-2022 End: 07-10-2022 Office outpatient visit 15 minutes Reyna Rdz Dept. of Dermatology Start: 07-09-2022 End: 07-10-2022 Office outpatient visit 25 minutes Reyna Rdz Dept. of Dermatology Start: 05-13-2022 End: 05-13-2022 ambulatory II Rajesh Mercer Work Phone: [facility] [employer] Work Phone: Start: 05-13-2022 End: 05-13-2022 Patient encounter procedure II Rajesh Mercer Work Phone: [facility] Work Phone: Start: 05-08-2022 End: 05-08-2022 ambulatory Dilan Sergio Other [employer] Other Start: 05-08-2022 Telephone encounter Dilan Sergio [facility] Start: 03-07-2022 End: 03-07-2022 ambulatory Dilan Sergio Other [employer] Other Start: 03-07-2022 Telephone encounter Dilan Sergio [facility] Start: 03-06-2022 End: 03-06-2022 ambulatory II Rajesh Mercer Work Phone: [facility] [employer] Work Phone: Start: 03-06-2022 End: 03-06-2022 Patient encounter procedure II Rajesh Mercer Work Phone: [facility] [employer] Start: 03-04-2022 End: 03-04-2022 ambulatory Christopher Harpal Other [employer] Other Start: 03-04-2022 Office outpatient vi sit 15 minutes Christopher Harpal [facility] Start: 02-21-2022 End: 02-21-2022 ambulatory Dilan Sergio Other [employer] Other Start: 02-21-2022 Office outpatient vi sit 25 minutes Dilan Sergio [facility] Start: 02-20-2022 End: 02-20-2022 ambulatory II Rajesh Mercer Work Phone: [facility] [employer] Work Phone: Start: 02-20-2022 End: 02-20-2022 Patient encounter procedure II Rajesh Mercer Work Phone: [facility] Start: 11-01-2021 End: 11-01-2021 ambulatory Dilan Sergio Other [employer] Other Start: 11-01-2021 Telephone encounter Dilan Sergio [facility] Start: 10-23-2021 End: 10-23-2021 ambulatory Dilan Sergio Other [employer] Other Start: 10-23-2021 Office outpatient vi sit 25 minutes Dilan Sergio [facility] Start: 10-19-2021 ambulatory Rajesh Ruff Mercer II Facility:[id number] Start: 10-02-2021 End: 10-02-2021 ambulatory Qamar Pandano Other [employer] Other Start: 10-02-2021 Office outpatient vi sit 15 minutes Christopher Harpal [facility] Start: 08-15-2021 End: 08-15-2021 Office outpatient visit 15 minutes Reyna Rdz Dept. of Dermatology Start: 08-06-2021 End: 08-06-2021 ambulatory Dilan Sergio Other [employer] Other Start: 08-06-2021 Telephone encounter Dilan Sergio [facility] Start: 08-03-2021 End: 08-25-[address] RAJ GALLOWAY Facility:[id number] Start: 06-18-2021 Patient encounter procedure No PCP None [facility] Phone: Start: 06-18-2021 Phys/qhp telephone evaluation 11-20 min No PCP None [facility] Work Phone: Start: 04-18-2021 End: 04-18-2021 ambulatory Dilan Sergio Other [employer] Other Start: 04-18-2021 Office outpatient vi sit 25 minutes Dilan Sergio [facility] Start: 04-02-2021 End: 11-29-2021 ambulatory Christopher Harpal Other [facility] [employer] Other Start: 04-02-2021 Office outpatient vi sit 15 minutes Qamar Rowan [facility] Start: 12-19-2020 Chart Update No PCP None [facility] Work Phone: Start: 11-27-2020 Office outpatient vi sit 15 minutes No PCP None [facility] Work Phone: Start: 09-13-2020 End: 09-13-2020 Office outpatient visit 15 minutes Reyna Bomont Dept. of Dermatology Start: 01-26-2020 End: 01-26-2020 Office outpatient visit 15 minutes [facility] Dept. of Dermatology Start: 01-26-2020 End: 01-26-2020 Office outpatient visit 25 minutes [facility] Dept. of Dermatology Start: 03-06-2018 End: 03-07-2018 Patient encounter procedure [facility] Start: 09-19-2017 End: 09-20-2017 Patient encounter procedure [facility] Procedures Date Procedure Procedure Detail Performing Clinician Start: 05-21-2024 Computerized ophthal srinivas imaging retina Dez Gallagher Jr Start: 05-21-2024 Eylea 1mg Pre-filled Syringe Dez Gallagher Jr Start: 05-21-2024 Intravitreal njx pharmacologic agt spx Dez Gallagher Jr Start: 04-12-2024 Comprehensive metabolic panel Rajesh Mercer MD Work Phone: Start: 03-03-2024 Computerized ophthal srinivas imaging retina Dez Gallagher Jr Start: 03-03-2024 Eylea 1mg Pre-filled Syringe Dez Gallagher Jr Start: 03-03-2024 Intravitreal njx pharmacologic agt spx Dez Gallagher Jr Start: 02-26-2024 Hemoglobin glycosylated a1c Gina Bustillo MD Work Phone: Start: 12-31-2023 Computerized ophthal srinivas imaging retina Dez Gallagher Jr Start: 12-31-2023 Eylea 1mg Pre-filled Syringe Dez Gallagher Jr Start: 12-31-2023 Intravitreal njx pharmacologic agt spx Dez Aileenkirsten Do Start: 10-24-2023 Diabetic retinal eye exam Gina Bustillo MD Work Phone: Start: 08-08-2023 Hemoglobin glycosylated a1c Maggi Peralta SENIOR DIRECTOR [employer] Work Phone: Start: 08-05-2023 Urine albumin quantitative Rajesh Mercer MD Work Phone: Start: 07-18-2023 Urine culture II Rajesh Mercer Work Phone: Start: 11-25-2022 Microalbumin [Mass/v olume] in Urine by Test strip Maggi Peralta SENIOR DIRECTOR [employer] Work Phone: Start: 07-09-2022 End: 07-10-2022 Tangential biopsy skin single lesion Reyna Rdz Start: 02-20-2022 Urine culture II Rajesh Mercer Work Phone: Start: 05-21-2021 Follow-up visit Start: 07-24-2020 Follow-up visit Start: 10-08-2019 Excision of melanoma No PCP None Comment on above: Wide excision Left u pper arm melanoma with 1 cm. margins and intermediaterepair of a 9cm. wound defect; Start: 03-06-2018 Assay of magnesium RUDY MERCER Start: 03-06-2018 Blood count complete automated RAJESH MERCER Start: 03-06-2018 Creatinine [Mass/vol ume] in Urine RAJESH MERCER Start: 03-06-2018 PTH, INTACT RAJESH MOORE ERNA Start: 03-06-2018 RENAL FUNCTION PANEL DA LUZ MERCER Start: 03-06-2018 Urate [Mass/volume] in Serum or Plasma RAJESH MERCER Start: 03-06-2018 Urnls dip stick/tabl et reagent auto microscopy RAJESH MERCER Start: 03-06-2018 VITAMIN D 25 HYDROXY ROSEY LUZ MERCER Start: 09-19-2017 Assay of magnesium RUDY RICHARDSON MERCER Start: 09-19-2017 Blood count complete automated RAJESH MERCER Start: 09-19-2017 PROTEIN / CREATININE RATIO, URINE RAJESH MERCER Start: 09-19-2017 PTH, INTACT RAJESH UMANZOR Start: 09-19-2017 RENAL FUNCTION PANEL ROSEY MERCER Start: 09-19-2017 Urate [Mass/volume] in Serum or Plasma RAJESH MERCER Start: 09-19-2017 Urnls dip stick/tabl et reagent auto microscopy RAJESH MERCER Start: 09-19-2017 VITAMIN D 25 HYDROXY ROSEY MERCER Start: 05-05-2009 Lithotripsy of bladd er calculus No PCP None Start: 05-05-1989 Cholecystectomy No PCP None Ligation of fallopian tube N o PCP None Removal of thrombus No PCP N one Urine culture II Rajesh Logan y Work Phone: Plan of Treatment Date Care Activity Detail Author Start: 04-19-2025 Medicare Annual Well ness (AWV) Medicare Annual Wellness (AWV) [facility] Start: 04-19-2025 Pneumococcal Vaccine : 65+ Years (2 of 2 - PCV) Pneumococcal Vaccine: 65+ Years (2 of 2 - PCV) [facility] Comment on above: Postponed from 04/20 (Patient Refused) Start: 04-19-2025 Screening for malign ant neoplasm of breast Mammogram [facility] Comment on above: Postponed from 07/01 (Patient Refused) Start: 04-19-2025 Screening for malign ant neoplasm of colon Colorectal Cancer Screening [facility] Comment on above: Postponed from 07/01 (Patient Refused) Start: 03-03-2025 Glaucoma screening Diabetes: R etinopathy Screening [facility] Start: 02-25-2025 Adult BMI Screening Adult BMI Screen ing [facility] Start: 02-25-2025 Tobacco Screening Tobacco Screening [facility] Start: 10-23-2024 Glaucoma screening Diabetic Op hthalmology Exam [facility] Start: 10-18-2024 End: 10-18-2024 Patient encounter procedure 10/18/2024 3:30 PM EDT Office Visit [facility] [address] [facility] [address] [place] [id number] Rajesh Mercer MD [address] [facility] [address] [place] [address] [facility] Start: 08-26-2024 End: 08-26-2024 Patient encounter procedure [facility] Start: 08-17-2024 End: 08-17-2024 Patient encounter procedure 08/17/2024 3:45 PM EDT Office Visit [facility] [address] [place] [address] Kailee Nova, DPM [address] [place] [address] [facility] Start: 08-07-2024 Adult BMI Screening Adult BMI Screen ing [facility] Start: 08-07-2024 Tobacco Screening Tobacco Screening [facility] Start: 08-04-2024 Urine screening for protein Diabetes: Urine Protein Screening [facility] Start: 07-20-2024 End: 07-20-2024 Patient encounter procedure 07/20/2024 3:45 PM EDT Office Visit [facility] [address] [place] [address] Kailee Nova, DPM [address] [place] [address] [facility] Start: 06-22-2024 End: 06-22-2024 Patient encounter procedure 06/22/2024 3:45 PM EST Office Visit [facility] [address] [place] [address] Kailee Nova, DPM [address] [place] [address] [facility] Start: 05-28-2024 Hemoglobin A1c measurement Diabetes: Hemoglobin A1C [facility] Start: 05-24-2024 End: 05-24-2024 Patient encounter procedure 05/24/2024 4:15 PM EST Office Visit [facility] [address] [place] [address] Kailee Nova, DPM [address] [place] [address] [facility] Start: 04-22-2024 End: 04-22-2024 Patient encounter procedure [facility] Comment on above: Arrived Start: 04-21-2024 End: 04-21-2024 Patient encounter procedure [facility] Start: 04-19-2024 End: 04-19-2024 Patient encounter procedure [facility] Comment on above: Arrived Start: 03-25-2024 End: 03-25-2024 Patient encounter procedure 03/25/2024 2:30 PM EST Office Visit [facility] [address] [place] [phone] Kailee Nova DPM [address] [place] [address] Arrived [facility] Comment on above: Arrived Start: 03-24-2024 End: 03-24-2024 Patient encounter procedure 03/24/2024 3:00 PM EST Office Visit [facility] [address] [place] [phone] Kailee Nova DPM [address] [place] [address] [facility] Start: 03-23-2024 End: 03-23-2024 Patient encounter procedure 03/23/2024 4:00 PM EST Office Visit [facility] [address] [place] [phone] Michael Bass, DPM [address] [place] [address] [facility] Start: 03-10-2024 End: 03-10-2024 Patient encounter procedure 03/10/2024 3:00 PM EST Office Visit [address] [facility] [address] [place] [address] Reyna Rdz MD [address], [facility] [address] [place] [address] [facility] Start: 03-05-2024 Examination of skin Derm Melan leydi Skin Check [facility] Start: 02-27-2024 Medicare Annual Well ness (AWV) Medicare Annual Wellness (AWV) [facility] Start: 02-27-2024 Screening for malign ant neoplasm of colon Colorectal Cancer Screening [facility] Comment on above: Postponed from 07/01 (Patient Refused) Start: 02-26-2024 Screening for malign ant neoplasm of breast Mammogram [facility] Comment on above: Postponed from 07/01 (Patient Refused) Start: 02-26-2024 End: 02-26-2024 Patient encounter procedure 02/26/2024 11:45 AM EDT Office Visit [facility] [address] [address] Gina Bustillo MD [address] [address] [facility] Start: 02-25-2024 Hemoglobin A1c measurement Diabetes: Hemoglobin A1C [facility] Start: 02-24-2024 End: 02-24-2024 Patient encounter procedure 02/24/2024 2:30 PM EDT Office Visit [facility] [address] [phone] Kailee Nova DPM [address] [facility] [address] [place] [address] [facility] Start: 01-26-2024 End: 01-26-2024 Patient encounter procedure [facility] Comment on above: Arrived Start: 01-24-2024 Glaucoma screening Diabetes: R etinopathy Screening [facility] Start: 01-16-2024 End: 01-15-2025 XR Knee - right 4 Views XR knee 4+ views right Imaging Routine Acute pain of right knee Expected: 01/16/2024, Expires: 01/15/2025 [facility] Work Phone: Comment on above: Expected: 01/16/2024 , Expires: 01/15/2025 Start: 01-16-2024 End: 01-16-2024 Patient encounter procedure 01/16/2024 1:00 PM EDT Office Visit [facility] [address] [facility] [address] [place] [phone] Gina Zarate PA [address] [place] [address] Arrived [facility] Comment on above: Arrived Start: 01-04-2024 Influenza vaccination P [facility] Start: 12-21-2023 Adult BMI Screening Adult BMI Screen ing [facility] Start: 12-21-2023 Tobacco Screening Tobacco Screening [facility] Start: 11-26-2023 Urine screening for protein [facility] Start: 11-25-2023 End: 11-25-2023 Patient encounter procedure 11/25/2023 11:30 AM EDT Office Visit [facility] [address] [phone] Maggi Peralta, SENIOR DIRECTOR FINANCE[employer]BORDER MACHINE OPERATOR [address] [address] [facility] Start: 09-03-2023 End: 09-03-2023 Patient encounter procedure 09/03/2023 2:45 PM EDT Office Visit [facility] [address] [phone] Reyna Rdz MD [address], [address] [address] [facility] Start: 07-18-2023 Bacteria identified in Urine by Culture Urine Culture [facility] Start: 06-27-2023 COVID-19 Vaccine ( season) COVID-19 Vaccine ( season) [facility] Start: 04-21-2023 COVID-19 Vaccine (4 - Moderna series) COVID-19 Vaccine (4 - Moderna series) [facility] Start: 03-22-2023 Hemoglobin A1c measurement Diabetes: Hemoglobin A1C [facility] Start: 01-03-2023 COVID-19 Vaccine ( season) COVID-19 Vaccine ( season) [facility] Start: 01-03-2023 Influenza vaccination Influenza Vacc ine [facility] Start: 07-13-2022 Bacteria identified in Urine by Culture [facility] Start: 05-21-2021 FUV, Provider: Heath Francisco, Status: Pen, Time: 2:00 PM FUV, Provider: Heath Francisco, Status: Pen, Time: 2:00 PM [facility] Work Phone: Start: 04-20-2020 Pneumococcal Vaccine : 65+ Years (2 - PCV) Pneumococcal Vaccine: 65+ Years (2 - PCV) [facility] Start: 04-20-2020 Pneumococcal Vaccine : 65+ Years (2 of 2 - PCV) Pneumococcal Vaccine: 65+ Years (2 of 2 - PCV) [facility] Start: 2016 Fall Risk Screening Fall Risk Screen ing [facility] Start: 2011 RSV patient s and/or patients aged 60+ years (1 - 1-dose 60+ series) RSV patients and/or patients aged 60+ years (1 - 1-dose 60+ series) [facility] Start: 2001 Administration of varicella zoster vaccine Zoster (Shingles) Vaccine (1 of 2) [facility] Start: 2001 Zoster Vaccines (1 of 2) Zoste r Vaccines (1 of 2) [facility] Start: 1991 Screening for malign ant neoplasm of breast Mammogram [facility] Start: 1973 DTaP/Tdap/Td Vaccine s (1 - Tdap) DTaP/Tdap/Td Vaccines (1 - Tdap) [facility] Start: 1970 DTaP,Tdap and Td Vaccines (1 - Tdap) DTaP,Tdap and Td Vaccines (1 - Tdap) [facility] Start: 1970 Urine screening for protein Diabetes: Urine Protein Screening [facility] Start: 1969 Adult BMI Follow Up Plan Adult BMI Follow Up Plan [facility] Start: 1969 Diabetic foot examination Diabetic Foot Exam [facility] Start: 1969 Hepatitis C screening Hepatitis C Sc reening [facility] Start: 1963 Depression Screening Depression Scre ening [facility] Start: 1961 Diabetic foot examination Diabetes: Foot Exam [facility] Start: 1951 Examination of skin Derm Melan leydi Skin Check [facility] Start: 1951 Glaucoma screening Diabetic Op hthalmology Exam [facility] Start: 1951 Lipid panel Lipid Panel [facility] Start: 1951 Medicare Annual Well ness Visit [facility] Start: 1951 Screening for malign ant neoplasm of colon [facility] Start: 1951 Screening for osteoporosis Bone Density Scan [facility] Bacteria identified in Urine by Culture [facility] Renal function 1999 panel - Serum or Plasma [facility] Renal function 1999 panel - Serum or Plasma [facility] Immunizations Immunization Date Immunization Notes Care Provider Fa cili 02-23-2024 Seasonal trivalent influenza vaccine, adjuvanted, preservative free Rajesh Mercer MD Work Phone: [facility] 02-23-2024 influenza virus vaccine, unspecified formulation Kailee Nova DPM Work Phone: [facility] 02-24-2023 Influenza, Seasonal, Quadrivalent, Adjuvanted Reyna Rdz MD Work Phone: [facility] Work Phone: 02-24-2023 Pfizer COVID-19 vaccine, Fall 2022, 12 years and older, (30mcg/0.3mL) Reyna Rdz MD Work Phone: [facility] Work Phone: 02-24-2023 influenza virus vaccine, unspecified formulation Maggi Peralta SENIOR DIRECTOR FINANCE-BORDER MACHINE OPERATOR Work Phone: [facility] 02-20-2022 Influenza, Seasonal, Quadrivalent, Adjuvanted Reyna Rdz MD Work Phone: [facility] Work Phone: 02-20-2022 influenza virus vaccine, unspecified formulation Maggi Peralta SENIOR DIRECTOR FINANCE-BORDER MACHINE OPERATOR Work Phone: [facility] 02-13-2022 influenza, high dose seasonal, preservative-free Reyna Rdz MD Work Phone: [facility] Work Phone: 01-26-2022 Moderna COVID-19 vaccine, bivalent, blue cap/harrell label *Check age/dose* Reyna Rdz MD Work Phone: [facility] Work Phone: 03-22-2021 influenza, high dose seasonal, preservative-free Reyna Rdz MD Work Phone: [facility] Work Phone: 03-06-2021 COVID-19 Moderna Christopher Harpal Other [facility] 08-25-2020 COVID-19 Moderna Christopher Harpal Other [facility] 07-26-2020 COVID-19 Moderna Christopher Harpal Other [facility] 05-16-2020 influenza virus vaccine, unspecified formulation Gina MCGREGOR Work Phone: [facility] 05-16-2020 influenza, injectabl e, quadrivalent, contains preservative Reyna Rdz MD Work Phone: [facility] Work Phone: 04-20-2019 pneumococcal polysaccharide vaccine, 23 valent Reyna Rdz MD Work Phone: [facility] Work Phone: 03-29-2019 Influenza, injectabl e, Madin [place] Canine Kidney, preservative free, quadrivalent Reyna Rdz MD Work Phone: [facility] Work Phone: 02-08-2018 Seasonal trivalent influenza vaccine, adjuvanted, preservative free Reyna Rdz MD Work Phone: [facility] Work Phone: 02-07-2016 influenza, injectabl e, quadrivalent, contains preservative Reyna Rdz MD Work Phone: [facility] Work Phone: 01-06-2015 seasonal influenza, intradermal, preservative free Gina MCGREGOR Work Phone: [facility] 02-22-2008 influenza virus vaccine, whole virus Reyna Rdz MD Work Phone: [facility] 1950 pneumococcal conjuga te vaccine, 7 valent Reyna Rdz Dept. of Dermatology Payers Date Payer Category Payer Self-pay [id number] 2021 Private Health Insurance [employer] [id number] 2019 Commercial Indemnity [employer] Member Subscriber Plan / Payer (Effective 2019-Present) Name: Chloe Pickens Relation to Subscriber: Self Name: Chloe Pickens Payer ID: Not on file Type: Not on file Address: [place] [id number] 2019 Unknown 2017 Private Health Insurance [id number] 2016 Medicare [id number] 1959 Medicare [id number] 1959 Unknown [id number] 1951 Unknown [id number] 2.16.840.1.370289.3.579.2. 173 1951 Unknown [id number] 2.16.840.1.641184.3.579.2. 173 1951 Unknown [id number] 2.16.840.1.362325.3.579.2. 593 1951 Unknown [id number] 2.16.840.1.689559.3.579.2. 356 1951 Unknown [id number] 2.16.840.1.706576.3.579.2. 356 1951 Unknown [id number] 2.16.840.1.354583.3.579.2. 356 1951 Unknown [id number] 2.16.840.1.642481.3.579.2. 356 1951 Unknown [id number] 2.16.840.1.261082.3.579.2. 356 1951 Unknown [id number] 2.16.840.1.322678.3.579.2. 356 1951 Unknown [id number] 2.16.840.1.883481.3.579.2. 1244 1951 Unknown [id number] 2.16.840.1.771597.3.579.2. 1244 1951 Unknown [id number] 2.16.840.1.393729.3.579.2. 1286 1951 Unknown [id number] 2.16.840.1.838959.3.579.2. 128 1951 Unknown [id number] 2.16.840.1.283527.3.579.2. 1286 1951 Unknown [id number] 2.16.840.1.226712.3.579.2. 1258 1951 Unknown [id number] 2.16.840.1.225041.3.579.2. 1258 1951 Unknown [id number] 2.16.840.1.187074.3.579.2. 1258 1951 Unknown [id number] 2.16.840.1.370996.3.579.2. 1259 1951 Unknown [id number] 2.16.840.1.737143.3.579.2. 1259 1951 Unknown [id number] 2.16.840.1.160593.3.579.2. 1259 1951 Unknown [id number] 2.16.840.1.970588.3.579.2. 125 1951 Unknown [id number] 2.16.840.1.284702.3.579.2. 1259 1951 Unknown [id number] 2.16.840.1.098890.3.579.2. 1259 1951 Unknown [id number] 2.16.840.1.566433.3.579.2. 1259 1951 Unknown [id number] 2.16.840.1.353517.3.579.2. 1259 1951 Unknown [id number] 2.16.840.1.952598.3.579.2. 1347 1951 Unknown [id number] 2.16.840.1.351299.3.579.2. 1347 1951 Unknown [id number] 2.16.840.1.846119.3.579.2. 1347 Unknown [id number] 2.16.840.1.928973.3.579.2. 531 Unknown [id number] Unknown [id number] Unknown [id number] Social History Date Type Detail Facility Start: 09-13-2020 Dept. of D ermatology Start: 1950 End: 1950 Sex Assigned At Female [facility] Start: 12-20-2022 End: 04-19-2024 Sex Assigned At [facility] [employer] Other Start: 1950 Sex Assigned At Not on file [facility] Work Phone: Start: 02-21-2023 End: 09-03-2023 Exposure to SARS-CoV-2 (event) Not sure [facility] Start: 07-04-2022 End: 10-24-2022 Tobacco smoking status NHIS Never smoked tobacco [facility] Start: 07-04-2022 End: 10-24-2022 Tobacco use and exposure Smokeless tobacco non-user [facility] [employer] [facility] Start: 12-20-2022 End: 02-26-2024 Alcohol intake Ex-drinker (finding) [facility] Start: 12-20-2022 End: 04-19-2024 History of [address] [facility] Adolescent depressio n screening assessment 0 [facility] Start: 02-24-2024 End: 04-22-2024 Alcoholic beverage intake Lifetime non-drinker (finding) [facility] Start: 06-12-2023 Alcohol Comment caffeine intak e: more than 4 cups per day [facility] Start: 12-06-2014 Sex Female (finding) [facility] Medical Equipment Procedure Code Equipment Code Equipment Origin al Text Equipment Identifier Dates [id number] Start: 05-17-2022 End: 02-26-2024 BD Ultra-Fine Sh ort Pen Needle 31 gauge x /16 [id number] Use to inject in sulin 5 times daily. PLEASE SCHEDULE APPOINTMENT [id number] Start: 2023 Use one strip to check blood sugar four times a day DX:e11.69 [id number] Start: 02-26-2024 End: 03-03-2024 USE 1 STRIP TO C HECK GLUCOSE THREE TIMES DAILY [id number] Start: 03-03-2024 Goals Date Patient Goal Desired Activity /State Clinical Notes 04-02-2021 to 04-22-2024 Kailee Nova DPM - 04/22/2024 4:15 PM Ruslan Mercer MD - 04/19/2024 4:15 PM ESTTelephone Encounter - Alison Bishop - 04/13/2024 9:44 AM Oanh Nova DPM - 03/25/2024 2:30 PM EST Note Date & Type Note Facility 04-22-2024 History of Presen t illness Narrative Images from the original note were not included. HPI: Patient presents to clinic for ingrown toenail left great toe and fissure right hallux. She has been having pain and pressure ot the left hallux for the past few days. Patient has had a history of ingrown toenails. Pt is concerned her nail is ingrown again. Pt has tenderness to the area no redness or drainage. No other complaints. Exam: General Examination: GENERAL APPEARANCE: awake, aware of surroundings, in no acute distress FOOT EXAM: 04/16/24 Vascular: DORSALIS PEDIS PULSE: 2/4, bilaterally POSTERIOR TIBIAL PULSE: 1/4, left, 0/4 right TEMPERATURE GRADIENT: warm to cool EDEMA: Moderate +2-3 pitting to the bilateral LE CAPILLARY FILLING TIME(sec): capillary fill intact bilateral digits less than 3 secs Neurologic: NEUROLOGIC: Vibratory sensation is intact to the hallux IPJ bilateral, sometimes Jazzy monofilament is intact to the plantar ball the foot and toes Dermatologic: SKIN FINDINGS: I dryness is noted diffusely across the foot and heel bilateral, venous stasis insufficiency changes noted to the anterior escobar bilateral HYPERKERATOSIS: none NAIL PATHOLOGY: Nails 1, 3-5 bilateral are intact. Incurvation noted to the medial, lateral border of the 1 - L nail. There is pain noted with pressure at the medialnail fold. Erythema and edema is noted to the affected nail fold. Hypertrophy of the nail fold is present. No malodor or drainage is noted. Prior absence of the second digital nail right a spicule is noted along the lateral aspect of the left foot. Nails are thickened, discolored, dystrophic, crumbly and with subungual debris SKIN PATHOLOGY: texture, turgor, hair growth, within normal limits Orthopedic: FOOT MORPHOLOGY: normal JOINT RANGE OF MOTION: normal ankle and subtalar joint and 1st MPJ ROM bilateral DEFORMITIES: none PAIN ELICITED WITH PALPATION OF: Overlying the site of ingrown toenail left hallux MUSCLE STRENGTH: 5/5 for all pedal groups tested Assessments: Ingrowing Nail: Pain in left foot: Pain in right foot: Onychomycosis Diabetes without complication Treatment Note: Ingrown Toenail: Discussed with the patient the treatment options including temporary vs. Permenant nail procedure or local slantback. Slantback performed of the left hallux nail. Large nail spicule was removed and patient noted relief of pain. Antibiotic cream dressing was applied. Patient was instructed on home care with antibiotic cream and band-aid for the next few days. Instructed on the course of the nail regrowing possibility of permenant nail procedure if they continue to have pain/problems with it in the future. RTC: prn. documented in this encounter [facility] 04-19-2024 History of Presen t illness Narrative Images from the original note were not included. HPI Med Refill Additional comments: Bactrim ds and tramadol-- tsering chavez Last edited by Miriam Nina LPN on 04/19/2024 3:56 PM. Subjective : Chief Complaint: Chloe Pickens is an 73 y.o. female here for an annual wellness visit. I have reviewed and reconciled the history and medication list with the patient today. Current Outpatient Medications Medication Sig Dispense Refill albuterol (2.5 MG/3ML) 0.083% nebulizer solution albuterol sulfate 2.5 mg/3 mL (0.083 %) solution for nebulization Inhale by inhalation route as needed for 20 days. albuterol HFA (Ventolin HFA) 90 mcg/act inhaler Ventolin HFA 90 mcg/actuation aerosol inhaler as needed allopurinol (Zyloprim) 100 MG tablet TAKE 1 TABLET EVERY DAY 90 tablet 3 BD Pen Needle Janny 2nd Gen 32G X 4 MM misc USE 1 FIVE TIMES DAILY biotin 2.5 MG capsule Take 2 tablets by mouth in the morning. Blood Glucose Monitoring Suppl (BioAmber Verio Flex System) w/Device kit USE TO CHECK GLUCOSE 4 TIMES DAILY carvedilol (Coreg) 12.5 MG tablet carvedilol 12.5 mg tablet Eliquis 5 MG tablet TAKE 1 TABLET TWICE DAILY 180 tablet 3 fenofibrate (Tricor) 145 MG tablet TAKE 1 TABLET EVERY DAY WITH FOOD 100 tablet 3 Fluticasone Furoate-Vilanterol (Breo Ellipta) 200-25 MCG/ACT aerosol powder Inhale 1 puff in the morning. furosemide (Lasix) 20 MG tablet Take 2 tablets by mouth in the morning. insulin degludec (Tresiba FlexTouch) 200 UNIT/ML injection Inject under the skin at bedtime. ipratropium (Atrovent) 0.02 % nebulizer solution INHALE 1 VIAL IN NEBULIZER 4 TIMES DAILY NEEDED FOR 30 DAYS Kerendia 20 MG tablet Take 20 mg by mouth in the morning. ketoconazole (NIZOral) 2 % shampoo APPLY DIRECTED TO AFFECTED AREA OF SCALP UP TO TWO TO THREE TIMES PER WEEK, LET SIT 3 TO 5 MINUTES PRIOR TO RINSING. loperamide (Imodium) 2 MG capsule Take 1 capsule (2 mg) by mouth 4 (four) times a day as needed for diarrhea 60 capsule 1 losartan (Cozaar) 100 MG tablet Take 1 tablet by mouth in the morning. Multiple Vitamins-Minerals (PreserVision AREDS) capsule NovoLOG FLEXPEN 100 UNIT/ML pen INJECT SUBCUTANEOUSLY UP TO 150 UNITS EVERY DAY DIRECTED. (DISCARD PEN 28 DAYS AFTER OPENING) omeprazole (PriLOSEC) [address] capsule TAKE 1 CAPSULE EVERY DAY 90 capsule 3 OneTouch Verio test strip Use one strip to check blood sugar four times a day DX:e11.69 Ozempic, 1 MG/DOSE, 4 MG/3ML solution pen-injector Inject 1 mg under the skin once a week sulfamethoxazole-trimethoprim (Bactrim DS) 800-160 MG per tablet Take 1 tablet by mouth in the morning and 1 tablet before bedtime. 14 tablet 1 topiramate 50 MG tablet TAKE 1 TABLET TWICE DAILY 180 tablet 3 verapamil ER (Verelan) 240 MG 24 hr capsule TAKE 1 CAPSULE EVERY MORNING 90 capsule 3 No current facility-administered medications for this visit. Review of Systems List of current healthcare providers: Patient Care Team: Rajesh Mercer MD as PCP - General (Internal Medicine) Rajesh Mercer MD as PCP - ACO [employer] Annual Visit Over the past 2 weeks, how often have you been bothered by any of the following problems? Little interest or pleasure in doing things: Not at all Feeling down, depressed, or hopeless: Not at all Patient Health Questionnaire-2 Score: 0 Cuellar Fall Risk History of Falling, Immediate or Within 3 Months: No Secondary Diagnosis: No Ambulatory Aid: Walks without aid/bedrest/nurse assist Health Risk Assessment Form Do you need help eating, bathing, using the toilet, dressing, or getting around your home?: No Can you prepare your own meals?: Yes Can you do your own housework without help?: Yes Can you shop for groceries or clothes without help?: No Do you exercise for about 20 minutes 3 or more days a week?: No How confident are you that you can control and manage most of your health problems?: Somewhat confident Can you mange your money, credit cards and accounts, pay bills and taxes?: Yes Cognitive Screening Three Word Registration: Apple, Watch, Jessica Clock Drawing: Normal Clock - 2 Three Word Recall: All 3 words correct - 3 Total Score (0-5 Points): 5 Pain Assessment Pain Score: 7 Advance Care Planning Do you have a living will?: No Do you have a medical power of state's attorney?: No Objective : BP 122/70 Pulse 90 Ht 5' 3.25 Wt 278 lb SpO2 96% BMI 48.86 kg/m No results found. Physical Exam Constitutional: General: She is not in acute distress. Appearance: She is well-developed. She is obese. HENT: Head: Normocephalic and atraumatic. Eyes: General: No scleral icterus. Conjunctiva/sclera: Conjunctivae normal. Cardiovascular: Rate and Rhythm: Normal rate and regular rhythm. Heart sounds: Normal heart sounds. No murmur heard. Pulmonary: Effort: Pulmonary effort is normal. No respiratory distress. Breath sounds: Normal breath sounds. No wheezing, rhonchi or rales. Musculoskeletal: Right knee: Swelling: anteriorly. Bony tenderness: Around patella. Skin: General: Skin is warm and dry. Neurological: General: No focal deficit present. Mental Status: She is alert and oriented to person, place, and time. Gait: Gait abnormal. Comments: Uses straight cane for ambulation Psychiatric: Behavior: Behavior normal. Comments: Irritable Assessment/Plan : The following health maintenance schedule was reviewed with the patient and provided in printed form in the after visit summary: Health Maintenance Topic Date Due Colorectal Cancer Screening Never done Mammogram Never done Pneumococcal Vaccine: 65+ Years (2 of 2 - PCV) 04/20/2020 Diabetes: Urine Protein Screening 11/26/2023 Medicare Annual Wellness (AWV) 02/27/2024 Diabetes: Hemoglobin A1C 05/28/2024 Diabetes: Retinopathy Screening 03/03/2025 Influenza Vaccine Completed Advance Care Planning Assessment/Plan Diagnoses and all orders for this visit: Routine general medical examination at health care facility ACP (advance care planning) Primary osteoarthritis of both knees - traMADol (Ultram) 50 MG tablet; Take 1 tablet (50 mg) by mouth every 6 (six) hours if needed for severe pain Sore on scalp - sulfamethoxazole-trimethoprim (Bactrim DS) 800-160 MG per tablet; Take 1 tablet by mouth in the morning and 1 tablet before bedtime. No orders of the defined types were placed in this encounter. Electronically signed by Rajesh Mercer MD on April 19, 2024 documented in this encounter [facility] 04-13-2024 Miscellaneous Notes LM that she is very concerned on the jardiance. In last 24 hours she has developed a sore on her labia. She uses [facility] in [place]. Asking if anything can be called in. Also should she stop taking the medication for now? I recommend she stop the Jardiance until the infection has healed. She also needs to let Nephrology know as I believe they prescribe the Jardiance. I did send in a prescription for a topical cream for her to place on the sore. If it is not improving in the next 24-48 hours, recommend she see her PCP. Patient informed. documented in this encounter [facility] 04-13-2024 Telephone encounter Note LM that she is very concerned on the jardiance. In last 24 hours she has developed a sore on her labia. She uses [facility] in [place]. Asking if anything can be called in. Also should she stop taking the medication for now? [facility] 04-13-2024 Telephone encounter Note I recommend she stop the Jardiance until the infection has healed. She also needs to let Nephrology know as I believe they prescribe the Jardiance. I did send in a prescription for a topical cream for her to place on the sore. If it is not improving in the next 24-48 hours, recommend [facility] Note [facility] [employer] [facility]-25-[facility] History of Presen t illness Narrative Images from the original note were not included. HPI: Patient presents to clinic for ingrown toenail left great toe and diabetic toenail care. She has been having pain and pressure ot the left hallux for the past few days. Patient has had a history of ingrown toenails. Pt is concerned her nail is ingrown again. Pt has tenderness to the area no redness or drainage. No other complaints. Exam: General Examination: GENERAL APPEARANCE: awake, aware of surroundings, in no acute distress FOOT EXAM: 03/24/24 Vascular: DORSALIS PEDIS PULSE: 2/4, bilaterally POSTERIOR TIBIAL PULSE: 1/4, left, 0/4 right TEMPERATURE GRADIENT: warm to cool EDEMA: Moderate +2-3 pitting to the bilateral LE CAPILLARY FILLING TIME(sec): capillary fill intact bilateral digits less than 3 secs Neurologic: NEUROLOGIC: Vibratory sensation is intact to the hallux IPJ bilateral, sometimes Jazzy monofilament is intact to the plantar ball the foot and toes Dermatologic: SKIN FINDINGS: I dryness is noted diffusely across the foot and heel bilateral, venous stasis insufficiency changes noted to the anterior escobar bilateral HYPERKERATOSIS: none NAIL PATHOLOGY: Nails 1, 3-5 bilateral are intact. Incurvation noted to the medial, lateral border of the 1 - L nail. There is pain noted with pressure at the medialnail fold. Erythema and edema is noted to the affected nail fold. Hypertrophy of the nail fold is present. No malodor or drainage is noted. Prior absence of the second digital nail right a spicule is noted along the lateral aspect of the left foot. Nails are thickened, discolored, dystrophic, crumbly and with subungual debris SKIN PATHOLOGY: texture, turgor, hair growth, within normal limits Orthopedic: FOOT MORPHOLOGY: normal JOINT RANGE OF MOTION: normal ankle and subtalar joint and 1st MPJ ROM bilateral DEFORMITIES: none PAIN ELICITED WITH PALPATION OF: Overlying the site of ingrown toenail left hallux MUSCLE STRENGTH: 5/5 for all pedal groups tested Assessments: Ingrowing Nail: Pain in left foot: Pain in right foot: Onychomycosis Diabetes without complication Treatment Note: Ingrown Toenail: Discussed with the patient the treatment options including temporary vs. Permenant nail procedure or local slantback. Slantback performed of the left hallux nail. Large nail spicule was removed and patient noted relief of pain. Antibiotic cream dressing was applied. Patient was instructed on home care with antibiotic cream and band-aid for the next few days. Instructed on the course of the nail regrowing possibility of permenant nail procedure if they continue to have pain/problems with it in the future. RTC: prn. documented in this encounter [facility] 02-26-2024 History of Presen t illness Narrative Images from the original note were not included. REASON FOR VISIT: Chloe Bin Pickens returns today for follow-up of diabetes. DIABETES HISTORY: Type of Diabetes: Type 2 Diabetes Duration of Diabetes: since 2000 INTERVAL HISTORY: ELIAS was November with HgA1c of 7.5%. Todays is 7.6%. She is on Kerendia and Jardiance. Has extreme urinary urgency and has had some accidents, especially at night. Has hypoglycemia in the morning. Switched to Ozempic as Trulicity has not been available. Having some nausea. She feels it suppresses her appetite. Has lost 10#. Has had worsening vision-back getting injections in the right eye for retinopathy. Macular degeneration is worse in the right eye too. DIABETES COMPLICATIONS/SURVEILLANCE: Retinopathy: yes, has been treated with injections Last eye exam: 2023 Nephropathy: yes on Kerendia and Jardiance Neuropathy: no CAD: no GLUCOSE CONTROL: Diabetes medications: Tresiba 68 units twice a day Novolog 50 units at breakfast and 55 units at supper Jardiance 25mg daily Ozempic 1 mg weekly Previous diabetic medications: Blood glucose summary: Patient is checking glucose frequently via continuous glucose sensor. Using the Dexcom sensor routinely. Taking insulin 4 times daily. CGM reviewed, some lows in the assistant activities director and miday. Past Medical History: Diagnosis Date Diabetes mellitus ([facility]) Kidney disease Tremor Past Surgical History: Procedure Laterality Date CHOLECYSTECTOMY TONSILLECTOMY TUBAL LIGATION Current Outpatient Medications: albuterol (PROVENTIL HFA;VENTOLIN HFA) 90 mcg/actuation inhaler, Ventolin HFA 90 mcg/actuation aerosol inhaler as needed, Disp: , Rfl: albuterol (PROVENTIL,VENTOLIN) 2.5 mg /3 mL (0.083 %) nebulizer solution, albuterol sulfate 2.5 mg/3 mL (0.083 %) solution for nebulization Inhale by inhalation route as needed for 20 days., Disp: , Rfl: allopurinoL (ZYLOPRIM) 100 mg tablet, allopurinol 100 mg tablet, Disp: , Rfl: apixaban (ELIQUIS) 5 mg tablet, Eliquis 5 mg tablet Take 2 tablets twice a day by oral route., Disp: , Rfl: blood-glucose meter (ONETOUCH VERIO METER) [facility] [place], Use daily 4 times a day DX:E11.65, Disp: 1 each, Rfl: 0 carvediloL (COREG) 12.5 mg tablet, 2 (two) times a day., Disp: , Rfl: cholecalciferol, vitamin D3, (VITAMIN D3 ORAL), Take by mouth., Disp: , Rfl: choline fenofibrate (TRILIPIX) 135 mg capsule, fenofibric acid (choline) 135 mg capsule,delayed release, Disp: , Rfl: fluticasone/vilanterol (BREO ELLIPTA INHL), Inhale., Disp: , Rfl: furosemide (LASIX) 20 mg tablet, Take 1 tablet (20 mg total) by mouth., Disp: , Rfl: hydrALAZINE (APRESOLINE) 25 mg tablet, Take 2 tablets (50 mg total) by mouth in the morning and 2 tablets (50 mg total) before bedtime., Disp: , Rfl: insulin degludec (TRESIBA FLEXTOUCH U-200) 200 unit/mL (3 mL) insulin pen, INJECT UP TO 150 UNITS UNDER THE SKIN EVERY DAY (DISCARD PEN 56 DAYS AFTER OPENING), Disp: 72 mL, Rfl: 3 JARDIANCE 25 mg tablet tablet, take 1 tablet by mouth in the morning, Disp: 90 tablet, Rfl: 3 KERENDIA 10 mg tablet, Take 1 tablet by mouth in the morning., Disp: , Rfl: losartan (COZAAR) 100 mg tablet, Take 1 tablet (100 mg total) by mouth in the morning., Disp: , Rfl: NovoLOG Flexpen U-100 Insulin 100 unit/mL (3 mL) insulin pen, INJECT UNDER THE SKIN UP TO 100 UNITS DAILY DIRECTED. DISCARD PEN 28 DAYS AFTER OPENING., Disp: 90 mL, Rfl: 3 omeprazole (PriLOSEC) 20 mg capsule, omeprazole 20 mg capsule,delayed release, Disp: , Rfl: OZEMPIC 1 mg/dose (4 mg/3 mL) pen injector, Inject 1 mg under the skin every 7 days., Disp: 9 mL, Rfl: 3 pen needle, diabetic (BD ULTRA-FINE JANNY PEN NEEDLE) 32 gauge x 5/32 needle, Use to inject insulin 5 times daily. PLEASE SCHEDULE APPOINTMENT, Disp: 500 each, Rfl: 3 pen needle, diabetic 31 gauge x 5/16 needle, BD Ultra-Fine Short Pen Needle 31 gauge x 5/16 , Disp: , Rfl: topiramate (TOPAMAX) 25 mg tablet, 2 (two) times a day., Disp: , Rfl: tramadol HCl (TRAMADOL ORAL), Take 50 mg by mouth., Disp: , Rfl: verapamil HCl (VERAPAMIL ORAL), Take 240 mg by mouth., Disp: , Rfl: vit A/vit C/vit E/zinc/copper (PRESERVISION AREDS ORAL), Take by mouth., Disp: , Rfl: blood sugar diagnostic (ONETOUCH VERIO TEST STRIPS) strip, Use one strip to check blood sugar four times a day DX:e11.69, Disp: 400 strip, Rfl: 3 Allergies, social history and family history were reviewed and updated in this chart. REVIEW OF SYSTEMS: 10-point ROS is negative, unless otherwise documented in HPI. PHYSICAL EXAM: Wt Readings from Last 3 Encounters: 02/26/24 127.4 kg (280 lb 14.4 oz) 11/25/23 131 kg (288 lb 11.2 oz) 08/08/23 131.8 kg (290 lb 9.6 oz) Body mass index is 48.22 kg/m . Vitals: 02/26/24 1205 BP: 118/81 Pulse: 81 Weight: 127.4 kg (280 lb 14.4 oz) Physical Exam Vitals reviewed. Constitutional: General: She is not in acute distress. Appearance: Normal appearance. She is not ill-appearing. HENT: Head: Normocephalic. Eyes: Conjunctiva/sclera: Conjunctivae normal. Neck: Vascular: No JVD. Trachea: Trachea and phonation normal. Cardiovascular: Rate and Rhythm: Normal rate and regular rhythm. Heart sounds: Normal heart sounds. Pulmonary: Effort: Pulmonary effort is normal. Breath sounds: Normal breath sounds. No wheezing, rhonchi or rales. Abdominal: General: Bowel sounds are normal. There is no distension. Palpations: Abdomen is soft. Tenderness: There is no abdominal tenderness. Musculoskeletal: General: No swelling. Right lower leg: Edema present. Left lower leg: Edema present. Skin: General: Skin is warm and dry. Capillary Refill: Capillary refill takes less than 2 seconds. Comments: Multiple small blisters on left lower leg, posterior and few small anterior. Neurological: General: No focal deficit present. Mental Status: She is alert and oriented to person, place, and time. Gait: Gait is intact. Psychiatric: Attention and Perception: Attention and perception normal. Mood and Affect: Affect normal. Speech: Speech normal. Behavior: Behavior is cooperative. Cognition and Memory: Memory normal. 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 1. Type 2 diabetes mellitus with hypoglycemia without coma, without long-term current use of insulin ([facility]) - POCT Hemoglobin A1c - blood sugar diagnostic (ONETOUCH VERIO TEST STRIPS) strip; Use one strip to check blood sugar four times a day DX:e11.69 Dispense: 400 strip; Refill: 3 2. Primary hypertension 3. Mixed hyperlipidemia Decrease Tresiba to 60 units bid Continue Ozempic, tolerating at this time Will discuss Jardiance dosing with nephrology given her urinary urgency/frequency Continue Novolog at current dose Return to clinic: 3 months documented in this encounter [facility] 02-26-2024 Instructions Gina Bustillo MD - 02/26/2024 11:45 AM EDT Reduce Tresiba to 60 units twice/day Call the office if still having low blood sugars documented in this encounter [facility] 02-24-2024 History of Presen t illness Narrative Images from the original note were not included. HPI: Patient presents to clinic for ingrown toenail left great toe and diabetic toenail care. She has been having pain and pressure ot the left hallux for the past few days. Patient has had a history of ingrown toenails. Pt is concerned her nail is ingrown again. Pt has tenderness to the area no redness or drainage. No other complaints. Exam: General Examination: GENERAL APPEARANCE: awake, aware of surroundings, in no acute distress FOOT EXAM: 02/24/24 Vascular: DORSALIS PEDIS PULSE: 2/4, bilaterally POSTERIOR TIBIAL PULSE: 1/4, left, 0/4 right TEMPERATURE GRADIENT: warm to cool EDEMA: Moderate +2-3 pitting to the bilateral LE CAPILLARY FILLING TIME(sec): capillary fill intact bilateral digits less than 3 secs Neurologic: NEUROLOGIC: Vibratory sensation is intact to the hallux IPJ bilateral, sometimes Jazzy monofilament is intact to the plantar ball the foot and toes Dermatologic: SKIN FINDINGS: I dryness is noted diffusely across the foot and heel bilateral, venous stasis insufficiency changes noted to the anterior escobar bilateral HYPERKERATOSIS: none NAIL PATHOLOGY: Nails 1, 3-5 bilateral are intact. Incurvation noted to the medial, lateral border of the 1 - L nail. There is pain noted with pressure at the medialnail fold. Erythema and edema is noted to the affected nail fold. Hypertrophy of the nail fold is present. No malodor or drainage is noted. Prior absence of the second digital nail right a spicule is noted along the lateral aspect of the left foot. Nails are thickened, discolored, dystrophic, crumbly and with subungual debris SKIN PATHOLOGY: texture, turgor, hair growth, within normal limits Orthopedic: FOOT MORPHOLOGY: normal JOINT RANGE OF MOTION: normal ankle and subtalar joint and 1st MPJ ROM bilateral DEFORMITIES: none PAIN ELICITED WITH PALPATION OF: Overlying the site of ingrown toenail left hallux MUSCLE STRENGTH: 5/5 for all pedal groups tested Assessments: Ingrowing Nail: Pain in left foot: Pain in right foot: Onychomycosis Diabetes without complication Treatment Note: Ingrown Toenail: Discussed with the patient the treatment options including temporary vs. Permenant nail procedure or local slantback. Slantback performed of the left hallux nail. Large nail spicule was removed and patient noted relief of pain. Antibiotic cream dressing was applied. Patient was instructed on home care with antibiotic cream and band-aid for the next few days. Instructed on the course of the nail regrowing possibility of permenant nail procedure if they continue to have pain/problems with it in the future. RTC: prn. documented in this encounter [facility] 01-29-2024 Telephone encounter Note OARRS reviewed, Rx sent into patient's pharmacy. It was an initial script after a big gap of time. Had to start with 5 day supply. [facility] 01-29-2024 Miscellaneous Notes OARRS reviewed, Rx sent into patient's pharmacy. It was an initial script after a big gap of time. Had to start with 5 day supply. Pt stated she needs a refill of tramodol (I'm not seeing it on her med list.) The last prescription was only for 20. It was originally 60. She's down to 5 pills. She's using [facility] documented in this encounter [facility] 01-29-2024 Telephone encounter Note Pt stated she needs a refill of tramodol (I'm not seeing it on her med list.) The last prescription was only for 20. It was originally 60. She's down to 5 pills. She's using [facility] 01-26-2024 History of Presen t illness Narrative Images from the original note were not included. HPI: Patient presents to clinic for ingrown toenail left great toe and diabetic toenail care. She has been having pain and pressure ot the left hallux for the past few days. Patient has had a history of ingrown toenails. Pt is concerned her nail is ingrown again. Pt has tenderness to the area no redness or drainage. No other complaints. Exam: General Examination: GENERAL APPEARANCE: awake, aware of surroundings, in no acute distress FOOT EXAM: 01/23/24 Vascular: DORSALIS PEDIS PULSE: 2/4, bilaterally POSTERIOR TIBIAL PULSE: 1/4, left, 0/4 right TEMPERATURE GRADIENT: warm to cool EDEMA: Moderate +2-3 pitting to the bilateral LE CAPILLARY FILLING TIME(sec): capillary fill intact bilateral digits less than 3 secs Neurologic: NEUROLOGIC: Vibratory sensation is intact to the hallux IPJ bilateral, sometimes Jazzy monofilament is intact to the plantar ball the foot and toes Dermatologic: SKIN FINDINGS: I dryness is noted diffusely across the foot and heel bilateral, venous stasis insufficiency changes noted to the anterior escobar bilateral HYPERKERATOSIS: none NAIL PATHOLOGY: Nails 1, 3-5 bilateral are intact. Incurvation noted to the medial, lateral border of the 1 - L nail. There is pain noted with pressure at the medialnail fold. Erythema and edema is noted to the affected nail fold. Hypertrophy of the nail fold is present. No malodor or drainage is noted. Prior absence of the second digital nail right a spicule is noted along the lateral aspect of the left foot. Nails are thickened, discolored, dystrophic, crumbly and with subungual debris SKIN PATHOLOGY: texture, turgor, hair growth, within normal limits Orthopedic: FOOT MORPHOLOGY: normal JOINT RANGE OF MOTION: normal ankle and subtalar joint and 1st MPJ ROM bilateral DEFORMITIES: none PAIN ELICITED WITH PALPATION OF: Overlying the site of ingrown toenail left hallux MUSCLE STRENGTH: 5/5 for all pedal groups tested Assessments: Ingrowing Nail: Pain in left foot: Pain in right foot: Onychomycosis Diabetes without complication Treatment Note: Ingrown Toenail: Discussed with the patient the treatment options including temporary vs. Permenant nail procedure or local slantback. Slantback performed of the left hallux nail. Large nail spicule was removed and patient noted relief of pain. Antibiotic cream dressing was applied. Patient was instructed on home care with antibiotic cream and band-aid for the next few days. Instructed on the course of the nail regrowing possibility of permenant nail procedure if they continue to have pain/problems with it in the future. RTC: prn. documented in this encounter [facility] 01-16-2024 History of Presen t illness Narrative Images from the original note were not included. Subjective Patient ID: Chloe Pickens is a 73 y.o. female who presents for knee pain. Chloe is present today for evaluation of right knee pain. Admits she was in a motel room last weekend and there was not a handicap bar in the bathroom and feels from her not having that caused a lot of stress on her right knee. Pain has been getting worse throughout the week. Rates pain 8/10. Wost pain is when she stands from a sitting position. Describes pain as sharp and stabbing. Sitting rates pain 4 or 5/10. She has had a knee replacement in that knee but does not remember when. Pain is on the outside of the knee or on the knee cap. Did try icing it a few times but it did not help much. Current Outpatient Medications on File Prior to Visit Medication Sig Dispense Refill Ozempic, 1 MG/DOSE, 4 MG/3ML solution pen-injector Inject 1 mg under the skin once a week albuterol (2.5 MG/3ML) 0.083% nebulizer solution albuterol sulfate 2.5 mg/3 mL (0.083 %) solution for nebulization Inhale by inhalation route as needed for 20 days. albuterol HFA (Ventolin HFA) 90 mcg/act inhaler Ventolin HFA 90 mcg/actuation aerosol inhaler as needed allopurinol (Zyloprim) 100 MG tablet TAKE 1 TABLET EVERY DAY 100 tablet 3 BD Pen Needle Janny 2nd Gen 32G X 4 MM misc USE 1 FIVE TIMES DAILY biotin 2.5 MG capsule Take 2 tablets by mouth in the morning. Blood Glucose Monitoring Suppl (Lollipuffuch Verio Flex System) w/Device kit USE TO CHECK GLUCOSE 4 TIMES DAILY carvedilol (Coreg) 12.5 MG tablet carvedilol 12.5 mg tablet Eliquis 5 MG tablet TAKE 1 TABLET TWICE DAILY 180 tablet 3 fenofibrate (Tricor) 145 MG tablet TAKE 1 TABLET EVERY DAY WITH FOOD 100 tablet 3 Fluticasone Furoate-Vilanterol (Breo Ellipta) 200-25 MCG/ACT aerosol powder Inhale 1 puff in the morning. furosemide (Lasix) 20 MG tablet Take 2 tablets by mouth in the morning. insulin degludec (Tresiba FlexTouch) 200 UNIT/ML injection Inject under the skin at bedtime. ipratropium (Atrovent) 0.02 % nebulizer solution INHALE 1 VIAL IN NEBULIZER 4 TIMES DAILY NEEDED FOR 30 DAYS Jardiance 25 MG Take 25 mg by mouth in the morning. Kerendia 20 MG tablet Take 20 mg by mouth in the morning. ketoconazole (NIZOral) 2 % shampoo APPLY DIRECTED TO AFFECTED AREA OF SCALP UP TO TWO TO THREE TIMES PER WEEK, LET SIT 3 TO 5 MINUTES PRIOR TO RINSING. losartan (Cozaar) 100 MG tablet Take 1 tablet by mouth in the morning. Multiple Vitamins-Minerals (PreserVision AREDS) capsule NovoLOG FLEXPEN 100 UNIT/ML pen INJECT SUBCUTANEOUSLY UP TO 150 UNITS EVERY DAY DIRECTED. (DISCARD PEN 28 DAYS AFTER OPENING) omeprazole (PriLOSEC) [address] capsule TAKE 1 CAPSULE EVERY DAY 100 capsule 3 Lollipuffuch Verio test strip Use one strip to check blood sugar four times a day DX:e11.69 topiramate 50 MG tablet TAKE 1 TABLET TWICE DAILY 180 tablet 3 verapamil ER (Verelan) 240 MG 24 hr capsule TAKE 1 CAPSULE EVERY MORNING 100 capsule 3 [DISCONTINUED] loperamide (Imodium) 2 MG capsule TAKE 1 CAPSULE BY MOUTH 4 TIMES DAILY NEEDED 60 capsule 1 [DISCONTINUED] Multiple Vitamins-Minerals (PRESERVISION AREDS 2 PO) Take 1 capsule by mouth Daily [DISCONTINUED] Semaglutide (OZEMPIC, 0.25 OR 0.5 MG/DOSE, SC) Inject 0.5 mg under the skin 1 (one) time per week No current facility-administered medications on file prior to visit. I have reviewed and reconciled the history and medication list with the patient today. Allergies Allergen Reactions Lanolin Unknown Doxycycline Unknown and Rash Other Reaction(s): hives/angioedema Social History Tobacco Use Smoking status: Never Smokeless tobacco: Never Substance Use Topics Alcohol use: Never Comment: caffeine intake: more than 4 cups per day Drug use: Never Family History Problem Relation Name Age of Onset Stroke Mother Hypertension Mother Diabetes Mother Hypertension Father Stroke Father Heart disease Father Stroke Paternal Grandmother Past Medical History: Diagnosis Date Allergies Anemia of chronic kidney failure, stage 3 (moderate) (CMS/HCC) Asthma (CMS/HCC) Diabetes (CMS/HCC) HLD (hyperlipidemia) (CMS/HCC) HTN (hypertension) (CMS/[facility]) Past Surgical History: Procedure Laterality Date CHOLECYSTECTOMY CHOLECYSTECTOMY 1994 DIABETES EYE EXAM KNEE SURGERY 2012 SLEEP STUDY BIPAP 16/12cm H20 TUBAL LIGATION 1985 Visit Vitals BP 124/76 Pulse 89 Resp 16 Ht 5' 3.25 Wt 287 lb 3.2 oz SpO2 96% BMI 50.47 kg/m Smoking Status Never BSA 2.41 m Review of Systems Constitutional: Negative for chills, fatigue and fever. Respiratory: Negative for cough, shortness of breath and wheezing. Cardiovascular: Negative for chest pain, palpitations and leg swelling. Gastrointestinal: Negative for abdominal pain, constipation, diarrhea, nausea and vomiting. Musculoskeletal: Positive for arthralgias and gait problem. Skin: Negative for rash. Objective Physical Exam Constitutional: General: She is not in acute distress. Appearance: She is well-developed. She is obese. HENT: Head: Normocephalic and atraumatic. Eyes: General: No scleral icterus. Conjunctiva/sclera: Conjunctivae normal. Cardiovascular: Rate and Rhythm: Normal rate and regular rhythm. Heart sounds: Normal heart sounds. No murmur heard. Pulmonary: Effort: Pulmonary effort is normal. No respiratory distress. Breath sounds: Normal breath sounds. No wheezing, rhonchi or rales. Musculoskeletal: Right knee: Swelling (anteriorly), bony tenderness (Around patella) and crepitus present. No erythema or ecchymosis. Normal range of motion. Skin: General: Skin is warm and dry. Neurological: General: No focal deficit present. Mental Status: She is alert and oriented to person, place, and time. Gait: Gait abnormal. Comments: Uses straight cane for ambulation Psychiatric: Behavior: Behavior normal. Comments: Irritable Assessment/Plan Diagnoses and all orders for this visit: Acute pain of right knee - XR knee 4+ views right; Future ADDIE wrap applied. N/V status intact after placement. Will obtain x-rays for further evaluation at this time. She will have them done at [facility]. Will notify pt of the results once received. May need to follow up with Ortho based on results. Primary osteoarthritis of both knees - traMADol (Ultram) 50 MG tablet; Take 1 tablet (50 mg) by mouth every 6 (six) hours if needed for severe pain for up to 5 days OARRS report generated and reviewed. Refill provided on the above. Pt can continue to take as needed. Also takes Tylenol prn. Sore on scalp - sulfamethoxazole-trimethoprim (Bactrim DS) 800-160 MG per tablet; Take 1 tablet by mouth in the morning and 1 tablet before bedtime. Pt states takes the above as needed for when she develops sores on her scalp. Diarrhea, unspecified type - loperamide (Imodium) 2 MG capsule; Take 1 capsule (2 mg) by mouth 4 (four) times a day as needed for diarrhea Refill provided on the above for pt to take as needed. Morbid (severe) obesity due to excess calories (CMS/HCC) Body mass index (BMI) 50.0-59.9, adult (CMS/HCC) Chronic obstructive pulmonary disease, unspecified (CMS/HCC) The patient is seeing a center medical director for this condition, treatment is deferred to that specialist. Correspondence from that specialist and any available testing were reviewed during today's visit. Major depressive disorder, recurrent, moderate (HCC) (CMS/HCC) This is a chronic medical condition that is stable since last assessment. No changes in treatment are suggested at this time. Vitreous hemorrhage, unspecified eye (CMS/HCC) The patient is seeing a center medical director for this condition, treatment is deferred to that specialist. Correspondence from that specialist and any available testing were reviewed during today's visit. Follow up in about 6 weeks (around 02/27/2024) for Medicare Wellness Visit. documented in this encounter [facility] 09-03-2023 History of Presen t illness Narrative Subjective Chloe Pickens is a 73 y.o. female who presents for the following: Skin Check (6 months). Skin Cancer Screening She has a history of moderate sun exposure. She is in the sun occasionally. She uses sunscreen occasionally. She reports itching and burning. Her moles are not changing. Spots that concern her: Right postauricular History of Melanoma(s) 1: malignant melanoma Location: left proximal upper arm Biopsy Date: 2019 [place] Depth: 0.6 mm Treatment: WLE with 1 cm margins Family History of Skin Cancer: Father: BCC Daughter: melanoma, from melanoma Objective Well appearing patient in no apparent distress; mood and affect are within normal limits. A full examination was performed including scalp, head, eyes, ears, nose, lips, neck, chest, axillae, abdomen, back, buttocks, bilateral upper extremities, bilateral lower extremities, hands, feet, fingers, toes, fingernails, and toenails. All findings within normal limits unless otherwise noted below. Scattered quintanilla-red papule(s). All nevi were symmetric brown macules without atypia on dermoscopy. Scattered rosas macules in sun-exposed areas. Stuck on verrucous, rosas-brown papules and plaques. Scar is well-healed without evidence of recurrence Right Postauricular Area Patient has irritating, scaling and fissuring in postauricular crease with some mild, nonpurulent drainage. Assessment/Plan Fissure in skin Right Postauricular Area The nature of the diagnosis was explained to patient. Will plan to treat with mupirocin BID x 2 weeks and cover cait at night; if not improving, pt to call. Pt agrees with plan as above. Related Medications mupirocin (Bactroban) 2 % ointment Apply topically 2 times a day for 10 days. Encounter for screening for malignant neoplasm of skin Personal history of malignant melanoma of skin Family history of melanoma Hemangioma of skin Melanocytic nevus, unspecified location The ABCDEs of melanoma and warning signs of non-melanoma skin cancer were discussed with patient and patient expressed understanding. Sun protection and use of at least SPF 30 discussed with patient. Pt instructed to reapply every 2 hours. Lentigo The ABCDEs of melanoma and warning signs of non-melanoma skin cancer were discussed with patient and patient expressed understanding. Sun protection and use of at least SPF 30 discussed with patient. Pt instructed to reapply every 2 hours. Seborrheic keratosis Scar conditions and fibrosis of skin documented in this encounter [facility] Work Phone: 08-08-2023 History of Presen t illness Narrative REASON FOR VISIT: Chloe Pickens returns today for follow-up of diabetes. DIABETES HISTORY: Type of Diabetes: Type 2 Diabetes Duration of Diabetes: since 2000 INTERVAL HISTORY: ELIAS was December with HgA1c of 7.3%. Today's is 7.7%. DIABETES COMPLICATIONS/SURVEILLANCE: Retinopathy: yes Last eye exam: 2022 Nephropathy: yes on Kerendia and Jardiance Neuropathy: no CAD: no GLUCOSE CONTROL: Diabetes medications: Tresiba 70 units twice a day Novolog 55 units at breakfast and 50 units at supper Jardiance 25mg daily Trulicity 3 mg weekly Previous diabetic medications: Blood glucose summary: Patient is checking glucose frequently via continuous glucose sensor. Using the Dexcom sensor routinely. Taking insulin 4 times daily. CGM reviewed, 14d avg 183. Time in range is 51% with 0% hypoglycemia. Blood sugars drop slightly in the afternoons and then rise in the evenings. Past Medical History: Diagnosis Date Diabetes mellitus ([facility]) Kidney disease Tremor Past Surgical History: Procedure Laterality Date CHOLECYSTECTOMY TONSILLECTOMY TUBAL LIGATION Current Outpatient Medications: albuterol (PROVENTIL HFA;VENTOLIN HFA) 90 mcg/actuation inhaler, Ventolin HFA 90 mcg/actuation aerosol inhaler as needed, Disp: , Rfl: albuterol (PROVENTIL,VENTOLIN) 2.5 mg /3 mL (0.083 %) nebulizer solution, albuterol sulfate 2.5 mg/3 mL (0.083 %) solution for nebulization Inhale by inhalation route as needed for 20 days., Disp: , Rfl: allopurinoL (ZYLOPRIM) 100 mg tablet, allopurinol 100 mg tablet, Disp: , Rfl: apixaban (ELIQUIS) 5 mg tablet, Eliquis 5 mg tablet Take 2 tablets twice a day by oral route., Disp: , Rfl: blood sugar diagnostic ([facility] TEST [facility]) strip, Use one strip to check blood sugar four times a day DX:e11.69, Disp: 400 strip, Rfl: 3 blood-glucose meter (ONETOUCH VERIO METER) [facility], Use daily 4 times a day DX:E11.65, Disp: 1 each, Rfl: 0 carvediloL (COREG) 12.5 mg tablet, 2 (two) times a day., Disp: , Rfl: cholecalciferol, vitamin D3, (VITAMIN D3 ORAL), Take by mouth., Disp: , Rfl: choline fenofibrate (TRILIPIX) 135 mg capsule, fenofibric acid (choline) 135 mg capsule,delayed release, Disp: , Rfl: dulaglutide (TRULICITY) 3 mg/0.5 mL pen injector, inject 1 syringe subcutaneously once a week, Disp: 4 mL, Rfl: 0 fluticasone/vilanterol (BREO ELLIPTA INHL), Inhale., Disp: , Rfl: furosemide (LASIX) 20 mg tablet, Take 1 tablet (20 mg total) by mouth., Disp: , Rfl: hydrALAZINE (APRESOLINE) 25 mg tablet, Take 2 tablets (50 mg total) by mouth in the morning and 2 tablets (50 mg total) before bedtime., Disp: , Rfl: insulin degludec (TRESIBA FLEXTOUCH U-200) 200 unit/mL (3 mL) insulin pen, Inject up to 150 units a day under the skin, Disp: 72 mL, Rfl: 3 JARDIANCE 25 mg tablet tablet, TAKE 1 TABLET BY MOUTH IN THE MORNING, Disp: 90 tablet, Rfl: 0 KERENDIA 10 mg tablet, Take 1 tablet by mouth in the morning., Disp: , Rfl: losartan (COZAAR) 100 mg tablet, Take 1 tablet (100 mg total) by mouth in the morning., Disp: , Rfl: NovoLOG FlexPen U-100 Insulin 100 unit/mL (3 mL) insulin pen, Uses up to 100 units daily, Disp: 90 mL, Rfl: 3 omeprazole (PriLOSEC) 20 mg capsule, omeprazole 20 mg capsule,delayed release, Disp: , Rfl: pen needle, diabetic (BD ULTRA-FINE JANNY PEN NEEDLE) 32 gauge x 5/32 needle, Use to inject insulin 5 times daily. PLEASE SCHEDULE APPOINTMENT, Disp: 500 each, Rfl: 3 pen needle, diabetic 31 gauge x 5/16 needle, BD Ultra-Fine Short Pen Needle 31 gauge x 5/16 , Disp: , Rfl: topiramate (TOPAMAX) 25 mg tablet, 2 (two) times a day., Disp: , Rfl: tramadol HCl (TRAMADOL ORAL), Take 50 mg by mouth., Disp: , Rfl: verapamil HCl (VERAPAMIL ORAL), Take 240 mg by mouth., Disp: , Rfl: vit A/vit C/vit E/zinc/copper (PRESERVISION AREDS ORAL), Take by mouth., Disp: , Rfl: Allergies, social history and family history were reviewed and updated in this chart. REVIEW OF SYSTEMS: 10-point ROS is negative, unless otherwise documented in HPI. PHYSICAL EXAM: Wt Readings from Last 3 Encounters: 08/08/23 131.8 kg (290 lb 9.6 oz) 12/20/22 132.2 kg (291 lb 6.4 oz) 08/19/22 133.4 kg (294 lb) Body mass index is 49.88 kg/m . Vitals: 08/08/23 1325 BP: 142/82 Pulse: 82 Weight: 131.8 kg (290 lb 9.6 oz) Physical Exam Vitals reviewed. Constitutional: General: She is not in acute distress. Appearance: Normal appearance. She is not ill-appearing. HENT: Head: Normocephalic. Eyes: Conjunctiva/sclera: Conjunctivae normal. Neck: Vascular: No carotid bruit or JVD. Trachea: Trachea and phonation normal. Cardiovascular: Rate and Rhythm: Normal rate and regular rhythm. Heart sounds: Normal heart sounds. Pulmonary: Effort: Pulmonary effort is normal. Breath sounds: Normal breath sounds. No wheezing, rhonchi or rales. Abdominal: General: Bowel sounds are normal. There is no distension. Palpations: Abdomen is soft. Tenderness: There is no abdominal tenderness. Musculoskeletal: General: No swelling. Right lower leg: Edema present. Left lower leg: Edema present. Skin: General: Skin is warm and dry. Capillary Refill: Capillary refill takes less than 2 seconds. Comments: Multiple small blisters on left lower leg, posterior and few small anterior. Neurological: General: No focal deficit present. Mental Status: She is alert and oriented to person, place, and time. Gait: Gait is intact. Psychiatric: Attention and Perception: Attention and perception normal. Mood and Affect: Affect normal. Speech: Speech normal. Behavior: Behavior is cooperative. Cognition and Memory: Memory normal. 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 1. Type 2 diabetes mellitus with hyperglycemia, with long-term current use of insulin ([facility] - POCT Hemoglobin A1c Blood sugars drop slightly in the afternoon and rise following supper. Change Novolog to 50 units at breakfast and 55 units at supper. 2. Primary hypertension Blood pressure is stable. No changes. A1c elevation is associated with significant risk for the development and progression of retinal, neurological and renal complications that can lead to vision loss, amputation, and renal failure. Tight glucose control is required to prevent these complications. Ongoing diabetes education is recommended. If possible a minimum of 150 minutes of physical activity per week is encouraged. Ongoing progressive weight loss is advised. The signs symptoms and treatment of hypoglycemia are understood by the patient. The individual should not drive if symptoms of hypoglycemia are precieved and if possible the blood glucose should be check before driving or participating in dangerous activity. A diabetes ID is recommended. Yearly dilated eye examination and yearly urine Microalbumin to cr ratio are advised. The blood pressure should be maintained under 140/80. The LDL less than 100 mg/dl for primary prevention atherosclerosis and < 70 mg/dL as secondary prevention. Daily examination of the feet for signs of injury and inspection of the shoes for foreign body or shoe deformity that could lead to foot injury. Return to clinic: 3 months HOMER Salcedo 08/08/23 1411 documented in this encounter [facility] 2023 Miscellaneous Notes OK to sign and send. Added note to have patient schedule appt documented in this encounter [facility] 2023 Telephone encounter Note OK to sign and send. Added note to have patient schedule appt [facility] 03-04-2023 Evaluation note Encounter Date Diagnosis Assessment Notes Feb, Dyspnea (ICD-10 - R06.00) Feb, Lymphadenopathy (ICD-10 - R59.1) Feb, Rhinitis (ICD-10 - J31.0) [facility] Other 10-30-2023 History of Present illness Narrative* Reyna Rdz MD - 03/03/2023 2:30 PM EDT meSubjective Chloe Pickens is a 72 y.o. female who presents for the following: Skin Check and Suspicious Skin Lesion. Skin Cancer Screening She has a history of heavy sun exposure. She is in the sun rarely. She uses sunscreen rarely. She reports no skin symptoms. Her moles are not changing. Spots that concern her: right axilla. Patient states she has a history of DN 2022, Melanoma 2019, and SKs Skin Lesion She describes it as a pimple , that is located on her right axilla . It was first noticed 4 weeks ago. It has been causing pain and is not changing and bleeding, draining. Previously this spot has been using Levofloxacin 500 mg . Other spots that are concerning: none Objective Well appearing patient in no apparent distress; mood and affect are within normal limits. A full examination was performed including scalp, head, eyes, ears, nose, lips, neck, chest, axillae, abdomen, back, buttocks, bilateral upper extremities, bilateral lower extremities, hands, feet, fingers, toes, fingernails, and toenails. All findings within normal limits unless otherwise noted below. All nevi were symmetric brown macules without atypia on dermoscopy. Scattered rosas macules in sun-exposed areas. Scattered quintanilla-red papule(s). Stuck on verrucous, rosas-brown papules and plaques. Scar is well-healed without evidence of recurrence Assessment/Plan Furuncle Right Axilla Patient was prescribed mupirocin 2% cream daily for 1 to 2 weeks along with the antibiotics prescribed. Follow up as needed. Related Medications mupirocin (Bactroban) 2 % cream Apply topically once daily. Melanocytic nevus, unspecified location The ABCDEs of melanoma and warning signs of non-melanoma skin cancer were discussed with patient and patient expressed understanding. Sun protection and use of at least SPF 30 discussed with patient.Pt instructed to reapply every 2 hours. Lentigo The ABCDEs of melanoma and warning signs of non-melanoma skin cancer were discussed with patient and patient expressed understanding. Sun protection and use of at least SPF 30 discussed with patient.Pt instructed to reapply every 2 hours. Hemangioma of other sites Seborrheic keratosis Scar conditions and fibrosis of skin Follow up 6 months for FBSE. Scribe Attestation By signing my name below, IShaneMariana Linda Singer attest that this documentation has been prepared under the direction and in the presence of Reyna Rdz MD. [facility]: [phone] 780-845908-15-2023 Evaluation note* Encounter Date Diagnosis Assessment Notes Treatment Notes Treatment Clinical Notes Dec, Hypertensive chronic kidney disease with stage 1 through stage 4 chronic kidney disease, or unspecified chronic kidney disease (ICD-10 - I12.9) [facility] Other 07-26-2023 Evaluation note* Encounter Date Diagnosis Assessment Notes Treatment Notes Treatment Clinical Notes Nov, Chronic kidney disease, stage 3 unspecified (ICD-10 - N18.30) She has CKD due to DM and HTN. Her baseline serum creatinine is 1.7- 1.8 mg/dL.She has no evidence of hematuria and proteinuria on UA. I have d/w the importance of good HTN and DM control to slow down the progression of CKD. Nov, Hypertensive chronic kidney disease with stage 1 through stage 4 chronic kidney disease, or unspecified chronic kidney disease (ICD-10 - I12.9) Her blood pressure is controlled at home and she appears to be euvolemic. Continue Lasix to 40 mg daily. Continue current dose of Verapamil and Losartan. I have advised him to monitor blood pressure at home if stays above 140/90 mmHg then call office. Nov, Leg edema (ICD-10 - R60.0) I have advised her to continue Lasix 40 mg daily and Kerendia 20 mg daily. Advised fluid restriction 50 to 60 ounces a day. Monitor weight at home and call office if she gains 2 pounds in 24 hours or 5 pounds in 1 week. Nov, Nephrolithiasis, uric acid (ICD-10 - N20.0) She has h/o Uric acid stone. Continue Allopurinol 100 mg daily . Hydrate adequately Nov, Type 2 diabetes mellitus with diabetic chronic kidney disease (ICD-10 - E11.22) Her Blood sugars are iron acceptable range.. I have advised her to continue to work with card setter for DM management. She has no evidence of proteinuria. Continue current dose of losartan for renal protection. Continue Jardiance and Kerendia Nov, Vitamin D deficiency (ICD-10 - E55.9) Her calcium and vitamin D are within the goal. Continue oral vitamin D. [facility] Other 05-02-2023 Evaluation note* Encounter Date Diagnosis Assessment Notes Treatment Notes Treatment Clinical Notes September, Dyspnea (ICD-10 - R06.00) September, Lymphadenopathy (ICD-10 - R59.1) September, Rhinitis (ICD-10 - J31.0) [facility] Other 04-27-2023 Evaluation note* Encounter Date Diagnosis Assessment Notes Treatment Notes Treatment Clinical Notes Aug, Chronic kidney disease, stage 3 unspecified (ICD-10 - N18.30) She has CKD due to DM and HTN. Her serum creatinine was 1.8 mg/dL above baseline serum Creatinine 1.5 mg/dl. Her renal function has been declining due to progression for CKD. She has no evidence of hematuria and proteinuria on UA. I have d/w the importance of good HTN and DM control to slow down the progression of CKD. Aug, Hypertensive chronic kidney disease with stage 1 through stage 4 chronic kidney disease, or unspecified chronic kidney disease (ICD-10 - I12.9) Her blood pressure is controlled and she appears to be euvolemic. I have advised to continue to hold carvedilol. Continue Lasix to 40 mg daily. Continue current dose of Verapamil and Losartan. I have advised him to monitor blood pressure at home if stays above 140/90 mmHg then call office. Aug, Leg edema (ICD-10 - R60.0) I have advised her to continue Lasix 40 mg daily and Kerendia 20 mg daily. Advised fluid restriction 50 to 60 ounces a day. Monitor weight at home and call office if she gains 2 pounds in 24 hours or 5 pounds in 1 week. Aug, Nephrolithiasis, uric acid (ICD-10 - N20.0) She has h/o Uric acid stone. Continue Allopurinol 100 mg daily . Hydrate adequately Aug, Type 2 diabetes mellitus with diabetic chronic kidney disease (ICD-10 - E11.22) Her Blood sugars are iron acceptable range.. I have advised her to continue to work with card setter for DM management. She has no evidence of proteinuria. Continue current dose of losartan for renal protection. Continue Jardiance and Kerendia Aug, Vitamin D deficiency (ICD-10 - E55.9) Her calcium and vitamin D are within the goal. Continue oral vitamin D. [facility] Other 03-13-2023 Evaluation note* Encounter Date Diagnosis Assessment Notes Treatment Notes Treatment Clinical Notes Jul, Chronic kidney disease, stage 3 unspecified (ICD-10 - N18.30) She has CKD due to DM and HTN. Her serum creatinine is 1.8 mg/dL above baseline serum Creatinine 1.5 mg/dl. Her renal function has been declining due to progression for CKD. She has no evidence of hematuria and proteinuria on UA. I have d/w the importance of good HTN and DM control to slow down the progression of CKD. Jul, Leg edema (ICD-10 - R60.0) I have advised her to continue Lasix 40 mg daily and Kerendia 20 mg daily. Advised fluid restriction 50 to 60 ounces a day. Monitor weight at home and call office if she gains 2 pounds in 24 hours or 5 pounds in 1 week. Jul, Hypertensive chronic kidney disease with stage 1 through stage 4 chronic kidney disease, or unspecified chronic kidney disease (ICD-10 - I12.9) Her blood pressure is controlled and she appears to be hypervolemic. Continue carvedilol 25 mg twice daily.Continue Lasix to 40 mg daily. Continue current dose of Verapamil and Losartan. I have advised him to monitor blood pressure at home if stays above 140/90 mmHg then call office. Jul, Nephrolithiasis, uric acid (ICD-10 - N20.0) She has h/o Uric acid stone. Continue Allopurinol 100 mg daily . Hydrate adequately Jul, Type 2 diabetes mellitus with diabetic chronic kidney disease (ICD-10 - E11.22) Her Blood sugars are iron acceptable range.. I have advised her to continue to work with card setter for DM management. She has no evidence of proteinuria. Continue current dose of losartan for renal protection. Continue Jardiance and Kerendia Jul, Vitamin D deficiency (ICD-10 - E55.9) Her calcium and vitamin D are within the goal. Continue oral vitamin D. [facility] Other 01-04-2023 Evaluation note* Encounter Date Diagnosis Assessment Notes Treatment Notes Treatment Clinical Notes May, Type 2 diabetes mellitus with diabetic chronic kidney disease (ICD-10 - E11.22) [facility] Other 10-31-2022 Evaluation note* Encounter Date Diagnosis Assessment Notes Treatment Notes Treatment Clinical Notes Feb, Dyspnea (ICD-10 - R06.00) Feb, Lymphadenopathy (ICD-10 - R59.1) [facility] Other 10-20-2022 Evaluation note* Encounter Date Diagnosis Assessment Notes Treatment Notes Treatment Clinical Notes Feb, Chronic kidney disease, stage 3 unspecified (ICD-10 - N18.30) She has CKD due to DM and HTN. Her serum creatinine is 1.8 mg/dL above baseline serum Creatinine 1.5 mg/dl. Her renal function has been declining due to progression for CKD. She has no evidence of hematuria and proteinuria on UA. I have d/w the importance of good HTN and DM control to slow down the progression of CKD. Feb, Leg edema (ICD-10 - R60.0) Continue Lasix 40 mg daily. She has a persistent edema so I have prescribed oral finerenone to control edema and blood pressure. Feb, Hypertensive chronic kidney disease with stage 1 through stage 4 chronic kidney disease, or unspecified chronic kidney disease (ICD-10 - I12.9) Her blood pressure is controlled and she appears to be hypervolemic. Continue carvedilol 25 mg twice daily.Continue Lasix to 40 mg daily. Continue current dose of Verapamil and Losartan. I have advised him to monitor blood pressure at home if stays above 140/90 mmHg then call office. Feb, Nephrolithiasis, uric acid (ICD-10 - N20.0) She has h/o Uric acid stone. Continue Allopurinol 100 mg daily . Hydrate adequately Feb, Type 2 diabetes mellitus with diabetic chronic kidney disease (ICD-10 - E11.22) Her Blood sugars are iron acceptable range.. I have advised her to continue to work with card setter for DM management. She has no evidence of proteinuria. Continue current dose of losartan for renal protection. She will be benefit with SGLT2 inhibitors including Farxiga and Jardiance. Advised to discuss with endocrine Feb, Vitamin D deficiency (ICD-10 - E55.9) Her calcium and vitamin D are within the goal. Continue oral vitamin D. [facility] Other 06-21-2022 Evaluation note* Encounter Date Diagnosis Assessment Notes Treatment Notes Treatment Clinical Notes Oct, Hypertensive chronic kidney disease with stage 1 through stage 4 chronic kidney disease, or unspecified chronic kidney disease (ICD-10 - I12.9) Her blood pressure is uncontrolled and she appears to be euvolemic.I have advised her to increase the carvedilol 25 mg in the a.m. and 12.5 mg in the p.m. for 1 week. If her blood pressure stays above 140/90 mmHg and heart rate is not lower than 50 bpm then she can increase to 25 mg twice daily.Continue Lasix to 40 mg daily. Continue current dose of Verapamil and Losartan. I have advised him to monitor blood pressure at home if stays above 140/90 mmHg then call office. Oct, Chronic kidney disease, stage 3 unspecified (ICD-10 - N18.30) She has CKD due to DM and HTN. Her serum creatinine is 1.8 mg/dL above baseline serum Creatinine 1.5 mg/dl. Her renal function has been declining due to progression for CKD. She has no evidence of hematuria and proteinuria on UA. I have d/w the importance of good HTN and DM control to slow down the progression of CKD. Oct, Leg edema (ICD-10 - R60.0) Continue Lasix 40 mg daily Oct, Nephrolithiasis, uric acid (ICD-10 - N20.0) She has h/o Uric acid stone. Continue Allopurinol 100 mg daily . Hydrate adequately Oct, Type 2 diabetes mellitus with diabetic chronic kidney disease (ICD-10 - E11.22) Her Blood sugars are iron acceptable range.. I have advised her to continue to work with card setter for DM management. She has no evidence of proteinuria. Continue current dose of losartan for renal protection Oct, Vitamin D deficiency (ICD-10 - E55.9) Her calcium and vitamin D are within the goal. Continue oral vitamin D. [facility] Other 05-31-2022 Evaluation note* Encounter Date Diagnosis Assessment Notes Treatment Notes Treatment Clinical Notes September, Dyspnea (ICD-10 - R06.00) September, Lymphadenopathy (ICD-10 - R59.1) [facility] Other 12-15-2021 Evaluation note* Encounter Date Diagnosis Assessment Notes Treatment Notes Treatment Clinical Notes Apr, Hypertensive chronic kidney disease with stage 1 through stage 4 chronic kidney disease, or unspecified chronic kidney disease (ICD-10 - I12.9) Her blood pressure is Controlled and she appears to be euvolemic. Continue Lasix to 40 mg daily. Continue current dose of Coreg, Verapamil and Losartan. I have advised him to monitor blood pressure at home if stays above 140/90 mmHg then call office. Apr, Chronic kidney disease, stage 3 unspecified (ICD-10 - N18.30) She has CKD due to DM and HTN with baseline serum Creatinine 1.3-1.5 mg/dl. She has no evidence of hematuria and proteinuria on UA. I have d/w the importance of good HTN and DM control to slow down the progression of CKD. Apr, Leg edema (ICD-10 - R60.0) Continue Lasix 40 mg daily Apr, Nephrolithiasis, uric acid (ICD-10 - N20.0) She has h/o Uric acid stone. Continue Allopurinol 100 mg daily . Hydrate adequately Apr, Type 2 diabetes mellitus with diabetic chronic kidney disease (ICD-10 - E11.22) Her Blood sugars are iron acceptable range.. I have advised her to continue to work with card setter for DM management. She has no evidence of proteinuria. Continue current dose of losartan for renal protection Apr, Vitamin D deficiency (ICD-10 - E55.9) Her calcium and vitamin D are within the goal. Continue oral vitamin D. [facility] Other 11-29-2021 Evaluation note* Encounter Date Diagnosis Assessment Notes Treatment Notes Treatment Clinical Notes Mar, Dyspnea (ICD-10 - R06.00) [facility] Other Evaluation noteN/ADept. of Dermatology Evaluation noteNo InformationNort [employer] Other Evaluation noteNo assessment information available [facility] Work Phone: Evaluation note* Diagnosis Furuncle- Primary Carbuncle and furuncle of unspecified site Melanocytic nevus, unspecified location Lentigo Other dyschromia Hemangioma of other sites Seborrheic keratosis Scar conditions and fibrosis of skin Scar condition and fibrosis of skin Personal history of malignant melanoma of skin [facility] Work Phone: Evaluation note* Diagnosis Type 2 diabetes mellitus with hyperglycemia, with long-term current use of insulin [place] [facility] Diagnosis Type 2 diabetes mellitus with hypoglycemia without coma, without long-term current use of insulin ([facility] Primary [facility]* Diagnosis Onset Date Resolution Status CKD (chronic kidney disease) stage 4, GFR 15-29 ml/min acute Hyperlipidemia acute [id number] acute Nephrolithiasis, uric acid a cute Type 2 diabetes mellitus wit h diabetic chronic kidney disease acute Vitamin D deficiency acute [facility] Work Phone: Evaluation note* Diagnosis Type 2 diabetes mellitus with hyperglycemia, with long-term current use of insulin ([facility] [facility] Diagnosis Type 2 diabetes mellitus with hyperglycemia, with long-term current use of insulin ([facility])- Primary Primary hypertension Unspecified essential hypertension [facility]* Diagnosis Fissure in skin- Primary Other specified disorder of skin Encounter for screening for malignant neoplasm of skin Personal history of malignant melanoma of skin Family history of melanoma Family history of other specified malignant neoplasm Hemangioma of skin Hemangioma of skin and subcutaneous tissue Melanocytic nevus, unspecified location Lentigo Other dyschromia Seborrheic keratosis Scar conditions and fibrosis of skin Scar condition and fibrosis of skin documented in [facility] Work Phone: Evaluation note* Diagnosis Onset Date Resolution Status Chronic kidney disease, stage 3 unspecified acute CKD (chronic kidney disease) stage 4, GFR 15-29 ml/min acute Hyperlipidemia acute [id number] acute Nephrolithiasis, uric acid a cute Type 2 diabetes mellitus wit h diabetic chronic kidney disease acute [facility] Work Phone: Evaluation note* Diagnosis Ingrown toenail- Primary Ingrowing nail Left foot pain Pain in soft tissues of limb documented [facility]* Diagnosis Type 2 diabetes mellitus with hypoglycemia without coma, without long-term current use of insulin ([facility] Primary Primary hypertension Unspecified essential hypertension Mixed hyperlipidemia [facility]* Diagnosis Primary osteoarthritis of both knees- Primary documented in this encounter [facility]* Diagnosis Type 2 diabetes mellitus with hypoglycemia without coma, without long-term current use of insulin ([facility] [facility]* Diagnosis Ingrown toenail- Primary Ingrowing nail Left foot pain Pain in soft tissues of limb Onychomycosis Dermatophytosis of nail Type 2 diabetes mellitus without complication, without long-term current use of insulin ([facility]) documented in this encounter [facility]* Diagnosis Acute pain of right knee- Primary Primary osteoarthritis of both knees Sore on scalp Diarrhea, unspecified type Morbid (severe) obesity due to excess calories ([facility]) Body mass index (BMI) 50.0-59.9, adult ([facility]) Chronic obstructive pulmonary disease, unspecified ([facility]) Major depressive disorder, recurrent, moderate (CMS/HCC) Major depressive disorder, recurrent episode, moderate Vitreous hemorrhage, unspecified eye (CMS/HCC) documented in this encounter [facility]* Diagnosis Tinea cruris- Primary Dermatophytosis of groin and perianal area [facility]* Diagnosis Routine general medical examination at health care facility- Primary Routine general medical examination at a health care facility ACP (advance care planning) Other specified counseling Primary osteoarthritis of both knees Sore on scalp documented in this encounter [facility]* Diagnosis Primary osteoarthritis of both knees documented in this encounter [facility]* Diagnosis Ingrown toenail- Primary Ingrowing nail Left foot pain Pain in soft tissues of limb [facility] - [facility]* Type Description Date Medical History diabetes mellitus Medical History hypertension Medical History renal failure Medical History MAMIE Medical History Vit D def Medical History Hyperlipidemia Medical History Leukocytosis Medical History COPD Medical History Blood clots in [place]. lungs Medical History sleep apnea Medical History SWELLING IN BOTH UPPER ARMS, MOR E ON THE RIGHT ARM Surgical History knee replacement, L Surgical History knee replacement, R 08/2015 Surgical History kidney stone Surgical History cholecystectomy Surgical History melanoma left arm 07/2019 Hospitalization History see above Hospitalization History kidney stones Hospitalization History BLOOD CLOTS IN BOTH LUNG S 2016 [facility] Other Histkkq general Narrative - Reported* Type Description Date Medical History diabetes mellitus Medical History hypertension Medical History renal failure Medical History MAMIE Medical History Vit D def Medical History Hyperlipidemia Medical History Leukocytosis Medical History COPD Medical History Blood clots in [place]. lungs Medical History sleep apnea Medical History SWELLING IN BOTH UPPER ARMS, MOR E ON THE RIGHT ARM Medical History skin lesions on back Surgical History knee replacement, L Surgical History knee replacement, R 08/2015 Surgical History kidney stone Surgical History cholecystectomy Surgical History melanoma left arm 07/2019 Surgical History skin lesions on back Hospitalization History see above Hospitalization History kidney stones Hospitalization History BLOOD CLOTS IN BOTH LUNG S 2016 [facility] Other Hisugdg general Narrative - Reported* Type Description Date Medical History diabetes mellitus Medical History hypertension Medical History renal failure Medical History MAMIE Medical History Vit D def Medical History Hyperlipidemia Medical History Leukocytosis Medical History COPD Medical History Blood clots in [place]. lungs Medical History sleep apnea Medical History SWELLING IN BOTH UPPER ARMS, MOR E ON THE RIGHT ARM Medical History skin lesions on back Medical History dyspnea Medical History lymphadenopathy Surgical History knee replacement, L Surgical History knee replacement, R 08/2015 Surgical History kidney stone Surgical History cholecystectomy Surgical History melanoma left arm 07/2019 Surgical History skin lesions on back Hospitalization History see above Hospitalization History kidney stones Hospitalization History BLOOD CLOTS IN BOTH LUNG S 2016 [facility] Other History general Narrative - Reported* Type Description Date Medical History diabetes mellitus Medical History hypertension Medical History renal failure Medical History MAMIE Medical History Vit D def Medical History Hyperlipidemia Medical History Leukocytosis Medical History COPD Medical History Blood clots in [place]. lungs Medical History sleep apnea Medical History SWELLING IN BOTH UPPER ARMS, MOR E ON THE RIGHT ARM Medical History skin lesions on back Medical History dyspnea Medical History lymphadenopathy Medical History allergies to dogs and cats Surgical History knee replacement, L Surgical History knee replacement, R 08/2015 Surgical History kidney stone Surgical History cholecystectomy Surgical History melanoma left arm 07/2019 Surgical History skin lesions on back Hospitalization History see above Hospitalization History kidney stones Hospitalization History BLOOD CLOTS IN BOTH LUNG S 2016 [facility] Other History of Present illness Narrative* Ms. Pickens presented as a 69 year old Female referred by Dr. Nj Kelley for evaluation and management of a left upper arm Melanoma. The patient reports that she noticed a lesion on the arm and brought this to the attention of her PCP. There was no report of trauma to the area, and the patient believes that this arose in a prior mole. She denies bleeding, or pain at the site. She has not noticed any other skin lesions. She saw her Chief Of Party Dr. Kelley and underwent a biopsy of the left arm lesion which demonstrated a 0.6mm non- ulcerated, no mitoses, melanoma. Total body skin exam was not performed at that time. * Surgery 10/08/2019 - WIde excision left upper arm melanoma * Pathology - No residual neoplasm * 11/27/2020 routine follow-up. The patient continues to follow with Dr. Rdz in dermatology and has had no concerning biopsies. The patient was noted at her last visit to have new swelling in her right upper arm at the shoulder. This was evaluated by her primary care physician who obtained an ultrasound of the right axilla. That study identified 1 prominent slightly atypical node based on its morphology and this was followed up with a CT scan of the chest that did not identify any adenopathy or other lesions of concern. The patient reports that since that time, the right shoulder has remained more prominent than the last however she occasionally has swelling of the left distal forearm andbilateral lower extremities. * ROS: * The patient has moderate performance status and is active daily. * Cardiac: No chest pain, palpitations or heart attacks * Pulmonary: bilateral PE s/p thrombectomy. MAMIE. * HEENT: No sinus or dental issues. * GI: No constipation, diarrhea, or bloody bowel movements. Some irritable bowel * : no urinary complaints * Musculoskeletal: No limitations to ROM or strength. * Skin: Left upper arm melanoma * Heme: No bleeding or thrombosis issues * Lymph: No swollen lymph glands on self examinations * Psych: No reported anxiety or depression * Neuro: tremor * All other systems reviewed and negative * Physical exam: * General: No acute distress. * HEENT: Moist oral mucosa, normocephalic * CV: RRR, Vitals reviewed * Pulmonary: No respiratory distress. No use of accessory muscles. No audible wheeze * GI: Soft, non-distended. * Lymphatics: No palpable lymph nodes in bilateral cervical, and axillary, as well as left epitrochlear basins * Skin: Left upper arm incision well healed. * Neuro: No gross sensorimotor deficits. Tremor noted * Extremities: The right upper arm continues to demonstrate some prominence compared to the left upper arm. This is less obvious than it was at my last visit. [id number] Work Phone: History of Present illness Narrative* Ms. Pickens presented as a 69 year old Female referred by Dr. Nj Kelley for evaluation and management of a left upper arm Melanoma. The patient reports that she noticed a lesion on the arm and brought this to the attention of her PCP. There was no report of trauma to the area, and the patient believes that this arose in a prior mole. She denies bleeding, or pain at the site. She has not noticed any other skin lesions. She saw her Chief Of Party Dr. Kelley and underwent a biopsy of the left arm lesion which demonstrated a 0.6mm non- ulcerated, no mitoses, melanoma. Total body skin exam was not performed at that time. * Surgery 10/08/2019 - WIde excision left upper arm melanoma * Pathology - No residual neoplasm * 11/27/2020 routine follow-up. The patient continues to follow with Dr. Rdz in dermatology and has had no concerning biopsies. The patient was noted at her last visit to have new swelling in her right upper arm at the shoulder. This was evaluated by her primary care physician who obtained an ultrasound of the right axilla. That study identified 1 prominent slightly atypical node based on its morphology and this was followed up with a CT scan of the chest that did not identify any adenopathy or other lesions of concern. The patient reports that since that time, the right shoulder has remained more prominent than the last however she occasionally has swelling of the left distal forearm andbilateral lower extremities. * ROS: * The patient has moderate performance status and is active daily. * Cardiac: No chest pain, palpitations or heart attacks * Pulmonary: bilateral PE s/p thrombectomy. MAMIE. * HEENT: No sinus or dental issues. * GI: No constipation, diarrhea, or bloody bowel movements. Some irritable bowel * : no urinary complaints * Musculoskeletal: No limitations to ROM or strength. * Skin: Left upper arm melanoma * Heme: No bleeding or thrombosis issues * Lymph: No swollen lymph glands on self examinations * Psych: No reported anxiety or depression * Neuro: tremor * All other systems reviewed and negative * Physical exam: * General: No acute distress. * HEENT: Moist oral mucosa, normocephalic * CV: RRR, Vitals reviewed * Pulmonary: No respiratory distress. No use of accessory muscles. No audible wheeze * GI: Soft, non-distended. * Lymphatics: No palpable lymph nodes in bilateral cervical, and axillary, as well as left epitrochlear basins * Skin: Left upper arm incision well healed. * Neuro: No gross sensorimotor deficits. Tremor noted * Extremities: The right upper arm continues to demonstrate some prominence compared to the left upper arm. This is less obvious than it was at my last visit. [id number] Work Phone: History of Present illness Narrative* Ms. Pickens presented as a 69 year old Female referred by Dr. Nj Kelley for evaluation and management of a left upper arm Melanoma. The patient reports that she noticed a lesion on the arm and brought this to the attention of her PCP. There was no report of trauma to the area, and the patient believes that this arose in a prior mole. She denies bleeding, or pain at the site. She has not noticed any other skin lesions. She saw her Chief Of Party Dr. Kelley and underwent a biopsy of the left arm lesion which demonstrated a 0.6mm non- ulcerated, no mitoses, melanoma. Total body skin exam was not performed at that time. * Surgery 10/08/2019 - WIde excision left upper arm melanoma * Pathology - No residual neoplasm * 06/18/2021 routine follow-up. The patient continues to follow with Dr. Rdz in dermatology and has had no concerning biopsies. The patient was noted at her last visit to have new swelling in her right upper arm at the shoulder. This was evaluated by her primary care physician who obtained an ultrasound of the right axilla. That study identified 1 prominent slightly atypical node based on its morphology and this was followed up with a CT scan of the chest that did not identify any adenopathy or other lesions of concern. The patient reports that since that time, the right shoulder has remained more prominent than the last however she occasionally has swelling of the left distal forearm andbilateral lower extremities. * ROS: * The patient has moderate performance status and is active daily. * Cardiac: No chest pain, palpitations or heart attacks * Pulmonary: bilateral PE s/p thrombectomy. MAMIE. * HEENT: No sinus or dental issues. * GI: No constipation, diarrhea, or bloody bowel movements. Some irritable bowel * : no urinary complaints * Musculoskeletal: No limitations to ROM or strength. * Skin: Left upper arm melanoma * Heme: No bleeding or thrombosis issues * Lymph: No swollen lymph glands on self examinations * Psych: No reported anxiety or depression * Neuro: tremor * All other systems reviewed and negative * Physical exam: * General: No acute distress. * HEENT: Moist oral mucosa, normocephalic * CV: RRR, Vitals reviewed * Pulmonary: No respiratory distress. No use of accessory muscles. No audible wheeze * GI: Soft, non-distended. * Lymphatics: No palpable lymph nodes in bilateral cervical, and axillary, as well as left epitrochlear basins * Skin: Left upper arm incision well healed. * Neuro: No gross sensorimotor deficits. Tremor noted * Extremities: The right upper arm continues to demonstrate some prominence compared to the left upper arm. This is less obvious than it was at my last visit. [facility] Work Phone: History of Present illness Narrative* Ms. Pickens presented as a 69 year old Female referred by Dr. jN Kelley for evaluation and management of a left upper arm Melanoma. The patient reports that she noticed a lesion on the arm and brought this to the attention of her PCP. There was no report of trauma to the area, and the patient believes that this arose in a prior mole. She denies bleeding, or pain at the site. She has not noticed any other skin lesions. She saw her Chief Of Party Dr. Kelley and underwent a biopsy of the left arm lesion which demonstrated a 0.6mm non- ulcerated, no mitoses, melanoma. Total body skin exam was not performed at that time. * Surgery 10/08/2019 - WIde excision left upper arm melanoma * Pathology - No residual neoplasm * 06/18/2021 routine follow-up. The patient continues to follow with Dr. Rdz in dermatology and has had no concerning biopsies. She is being seen by a Institute Scientist for various issues including Left arm swelling. Has concerns about persistent upper arm prominence, however workup has not identified a clear cause. No new melanoma concerns * ROS: * The patient has moderate performance status and is active daily. * Cardiac: No chest pain, palpitations or heart attacks * Pulmonary: bilateral PE s/p thrombectomy. MAMIE. * HEENT: No sinus or dental issues. * GI: No constipation, diarrhea, or bloody bowel movements. Some irritable bowel * : no urinary complaints * Musculoskeletal: No limitations to ROM or strength. Swellin go fthe left upper arm per report. chronic * Skin: Left upper arm melanoma treated. * Heme: No bleeding or thrombosis issues * Lymph: No swollen lymph glands on self examinations * Psych: No reported anxiety or depression * Neuro: tremor * All other systems reviewed and negative * Physical exam: * Unable to be performed due to the telephone nature of the visit [facility] Work Phone: InstructionsNot on filedocumented in this encounter [facility] filed[facility] in this encounter [facility] filedocumented in this encounter [facility] on filedocumented in this encounter [facility] (n[facility] Name Reason for referral NA NA Dept. of Dermatology Summary Purpose Family History No Family History Records FoundUnknown Family Member Name Dates Details Family history of leukemia: Father(V16.6, Z80.6) Status:Active Family history of cerebrovas cular accident (CVA): Father(V17.1, Z82.3) Status:Active Unknown Family Member Name Dates Details Family history of leukemia: Father(V16.6, Z80.6) Status:Active Family history of cerebrovas cular accident (CVA): Father(V17.1, Z82.3) Status:Active Unknown Family Member Name Dates Details Family history of leukemia: Father(V16.6, Z80.6) Status:Active Family history of cerebrovas cular accident (CVA): Father(V17.1, Z82.3) Status:Active Unknown Family Member Name Dates Details Family history of leukemia: Father(V16.6, Z80.6) Status:Active Family history of cerebrovas cular accident (CVA): Father(V17.1, Z82.3) Status:Active Unknown Family Member Name Dates Details Family history of leukemia: Father(V16.6, Z80.6) Status:Active Family history of cerebrovas cular accident (CVA): Father(V17.1, Z82.3) Status:Active Relationship Condition Age at Onset Recorded Date/T jass daughter Malignant neoplasm Unknown father Malignant neoplasm Unknown Hypertension Unknown Heart disease Unknown Unknown family member Unknown Not Specified Diabetes mellitus Unknown sister Unknown Relationship Condition Age at Onset Recorded Date/T jass daughter Malignant neoplasm Unknown father Malignant neoplasm Unknown Hypertension Unknown Heart disease Unknown Unknown mother Diabetes mellitus Unknown sister Unknown Advance Directives No Advanced Directives Records Found Advance Directive Response Recorded Date/ Time Advance Directives No March 7:25pm Advance Directive Response Recorded Date/ Time Advance Directives No March 6:25pm Chief Complaint Left shoulder melanoma; right axillary lymphadenopathy on ultrasound in August Left shoulder melanoma; right axillary lymphadenopathy on ultrasound in August Left shoulder melanoma* A telephone visit (audio only) between the patient (at the originating site) and the provider (at the distant site) was utilized to provide this telehealth service. * Left shoulder melanoma Chief Complaint and Reason for Visit Chief Complaint I12.9 Chief Complaint I12.9 I12.9 N18.30 R60.0 N20.0 E11.22 E55.9 Chief Complaint I12.9 I12.9 N18.30 R60.0 N20.0 E11.22 E55.9 e11.22 Chief Complaint e11.22 I12.9 N18.30 R60.0N20.0E11.22 E55.9 Chief Complaint I12.9 N18.30 R60.0 N 20.0 E11.22 E55.9 Chief Complaint I12.9 N18.30 R60.0 N 20.0 E11.22 E55.9 RENAL 6 month follow up Reason for Visit CKD (chronic kidney disease) stage 4, GFR 15-29 ml/min Hyperlipidemia [id number] Nephrolithiasis, uric acid Type 2 diabetes mellitus with diabetic chronic kidney disease Vitamin D deficiency Chief Complaint I12.9 N18.30 R60.0 N 20.0 E11.22 E55.9 RENAL 6 month follow up n18.4 e11.22 n20.0i 112.9 Reason for Visit CKD (chronic kidney disease) stage 4, GFR 15-29 ml/min Hyperlipidemia [id number] Nephrolithiasis, uric acid Type 2 diabetes mellitus with diabetic chronic kidney disease Vitamin D deficiency Chief Complaint E11.22 N20.0 E78.5 N 18.4 E55.9 RENAL 4 MONTH F/U Reason for Visit Chronic kidney disea se, stage 3 unspecified CKD (chronic kidney disease) stage 4, GFR 15-29 ml/min Hyperlipidemia [id number] Nephrolithiasis, uric acid Type 2 diabetes mellitus with diabetic chronic kidney disease Reason for Referral Specialty Diagnoses / Procedures Referred By Contlyly t Referred To Contact Diagnoses Reyna Bernal MD [address] [facility] B, [address] [address] Referral ID Status Reason Start Date Expiration Date V isits Requested Visits Authorized [id number] Pending Review 1 1 Additional Source Comments INFORMATION SOURCE (unrecogn ized section and content) DATE CREATED AUTHOR 04/12/2018 [facility] DATE CREATED AUTHOR AUTHOR'S ORGANIZ ATION 10/14/2018 [facility] DATE CREATED AUTHOR AUTHOR'S ORGANIZ ATION 11/21/2019 [facility] DATE CREATED AUTHOR AUTHOR'S ORGANIZ ATION 06/21/2021 [facility] DATE CREATED AUTHOR AUTHOR'S ORGANIZ ATION 10/08/2021 [facility] DATE CREATED AUTHOR AUTHOR'S ORGANIZ ATION 09/15/2022 [facility] DATE CREATED AUTHOR AUTHOR'S ORGANIZ ATION 09/05/2023 [facility] DATE CREATED AUTHOR AUTHOR'S ORGANIZ ATION 02/28/2024 [facility] DATE CREATED AUTHOR AUTHOR'S ORGANIZ ATION 04/20/2024 [facility] DATE CREATED AUTHOR AUTHOR'S ORGANIZ ATION 04/26/2024 [facility] DATE CREATED AUTHOR AUTHOR'S ORGANIZ ATION 05/27/2024 [facility] REASON FOR VISIT (unrecogniz ed section and content) Reason Comments Skin Check Suspicious Skin Lesion Reason Comments Med Refill Reason Onset Date Comments Med Refill 2023 Reason Comments Diabetes Mellitus Reason Comments Skin Check 6 months Reason Comments Diabetes Reason Onset Date Comments Med Refill 03/01/2024 Reason Comments Med Change Request Reason Comments Medicare Annual Wellness Visit Subsequen t Med Refill Bactrim ds [facility] trama dol[facility] Care Teams (unrecognized sec tion and content) Team Status: Active Member Role Status Dates Rajesh Mercer II MD Primary Care Provider Active Team Status: Inactive Member Role Status Dates Rajesh Mercer II MD Primary Care Provider Active Dilan Nguyễn MD Attending Provider Active [employer] Announcements Relationship Specialty Start Date End Date Rajesh Mercer MD [address] [place] [address] PCP - General 01/03/23 [employer] Announcements Relationship Specialty Start Date End Date Rajesh Mercer MD [address] [place] [address] PCP - General Internal Medicine 02/03/20 [employer]ounce[employer] Relationship Specialty Start Date End Date Rajesh Mercer MD [address] [place] [id number] PCP - General Internal Medicine 02/03/20 Team Status: Inactive Member Role Status Dates Rajesh Mercer II MD Primary Care Provider Active Start: July 18, 2023 End: July 18, 2023 Dilan Nguyễn MD Attending Provider Active Start : July 18, 2023 End: July 18, 2023 Team Status: Inactive Member Role Status Dates Rajesh Mercer II MD Primary Care Provider Active Start: July 21, 2023 End: July 21, 2023 Dilan Nguyễn MD Attending Provider Active Start : July 21, 2023 End: July 21, 2023 [employer] Cards [employer] Announcements Relationship Specialty Start Date End Date Rajesh Mercer MD [address] [place] [address] PCP - General Internal Medicine 02/03/20 [employer] Announcements Relationship Specialty Start Date End Date Rajesh Mercer MD [address] [place] [address] PCP - General Internal Medicine 02/03/20 [employer] Cards [employer] Announcements Relationship Specialty Start Date End Date Rajesh Mercer MD [address] [place] [address] PCP - General 01/03/23 Team Status: Inactive Member Role Status Dates Rajesh Mercer II MD Primary Care Provider Active Start: November 10, 2023 End: November 10, 2023 Dilan Nguyễn MD Attending Provider Active Start : November 10, 2023 End: November 10, 2023 Team Status: Inactive Member Role Status Dates Rajesh Mercer II MD Primary Care Provider Active Start: November 13, 2023 End: November 13, 2023 Dilan Nguyễn MD Attending Provider Active Start : November 13, 2023 End: November 13, 2023 [employer] Cards [employer] Announcements Relationship Specialty Start Date End Date Rajesh Mercer MD [address] [place] [address] PCP - General Internal Medicine 10/18/22 Rajesh Mercer MD [address] [place] [address] PCP - ACO Reach 07/04/23 [employer] Cards [employer] Announcements Relationship Specialty Start Date End Date Rajesh Mercer MD [address] [place] [address] PCP - General Internal Medicine 02/03/20 [employer] Cards [employer] Announcements Relationship Specialty Start Date End Date Rajesh Mercer MD [address] [place] [address] PCP - General Internal Medicine 10/18/22 Rajesh Mercer MD [address] [place] [address] PCP - ACO Reach 07/04/23 As[employer]er Cards And Announcements Relationship Specialty Start Date End Date Rajesh Mercer MD [address] [place] [address] PCP - General Internal Medicine 10/18/22 Rajesh Mercer MD [address] [place] [address] PCP - ACO Reach 07/04/23 Assembler Cards And Announcements Relationship Specialty Start Date End Date Rajesh Mercer MD [address] [place] [address] PCP - General Internal Medicine 10/18/22 Rajesh Mercer MD [address] [place] [address] PCP - ACO Reach 07/04/23 Assembler Cards And Announcements Relationship Specialty Start Date End Date Rajesh Mercer MD [address] [place] [address] PCP - General Internal Medicine 10/18/22 Rajesh Mercer MD [address] [place] [address] PCP - ACO Reach 07/04/23 Assembler Cards And Announcements Relationship Specialty Start Date End Date Rajesh Mercer MD [address] [place] [address] PCP - General Internal Medicine 10/18/22 Rajesh Mercer MD [address] [place] [address] PCP - ACO Reach 07/04/23 Assembler Cards And Announcements Relationship Specialty Start Date End Date Rajesh Mercer MD [address] [place] [address] PCP - General Internal Medicine 10/18/22 Rajesh Mercer MD [address] [place] [address] PCP - ACO Reach 07/04/23 Assembler Cards And Announcements Relationship Specialty Start Date End Date Rajesh Mercer MD [address] [place] [address] PCP - General Internal Medicine 10/18/22 Rajesh Mercer MD [address] [facility] [address] [place] [address] PCP - ACO Reach 07/04/23 Assembler Cards And Announcements Relationship Specialty Start Date End Date Rajesh Mercer MD [address] [facility] [address] [place] [address] PCP - General Internal Medicine 10/18/22 Rajesh Mercer MD [address] [facility] [address] [place] [address] PCP - ACO Reach 07/04/23 Assembler Cards And Announcements Relationship Specialty Start Date End Date Rajesh Mercer MD [address] [facility] [address] [place] [address] PCP - General Internal Medicine 10/18/22 Rajesh Mercer MD [address] [facility] [address] [place] [address] PCP - ACO Reach 07/04/23 Goals (unrecognized section and content) Goals may be documented in a n alternate section FOR RECORDS PERTAINING TO PATIENTS WHO ARE OR HAVE BEEN ENROLLED IN A CHEMICAL DEPENDENCY/SUBSTANCEABUSE PROGRAM, SOME INFORMATION MAY BE OMITTED. This clinical summary was aggregated from multiple sources. Caution should be exercised in using it in the provision of clinical care. This summary normalizes information from multiple sources, and as a consequence, information in this document may materially change the coding, format and clinical context of patient data. In addition, data may be omitted in some cases. CLINICAL DECISIONS SHOULD BE BASED ON THE PRIMARY CLINICAL RECORDS. [employer] provides no warranty or guarantee of the accuracy or completeness of information in this document.
[2024-05-31] MEDS: 0.9 % SODIUM CHLORIDE 1,000 ML 75 ML IV (21:48)
[2024-05-31] MEDS: TOPIRAMATE 25 MG TABLET 50 MG PO (21:49)
[2024-05-31] MEDS: ACETAMINOPHEN 325 MG TABLET 650 MG PO (21:51)
[2024-05-31] MEDS: BUDESONIDE 0.5 MG/2 ML AMPULE NEB IH (21:59)
[2024-05-31] MEDS: ALBUTEROL SULFATE 2.5 MG/3 ML VIAL NEB IH (21:59)
[2024-05-31 22:01] LABS: Glucometer 186 mg/dL (74-106)
[2024-06-01] VITALS (22 sets, daily range): BP systolic 122–146; BP diastolic 64–69; PULSE 60–90; TEMP 37.1–37.5; O2SAT 91–94
[2024-06-01] MEDS: ACETAMINOPHEN 325 MG TABLET 650 MG PO ×4 (05:00→19:00)
[2024-06-01] MEDS: ALBUTEROL SULFATE 2.5 MG/3 ML VIAL NEB IH (05:24)
[2024-06-01 05:26] LABS: Glucometer 196 mg/dL (74-106)
[2024-06-01 05:44] LABS: Basophils Absolute Auto 0.1 10^3/uL (0.0-0.1); Basophils Percent Auto 0.4 % (0.2-2.0); Eosinophils Percent Auto 0.1 % (0.9-7.0); Hematocrit 39.5 % (36.0-48.0); Immature Granulocytes Pct Auto 0.6 % (0.0-0.5); Lymphocytes Absolute Auto 0.3 10^3/uL (1.2-3.8); Lymphocytes Percent Auto 1.5 % (20.5-60.0); Mean Corpuscular HGB Conc 32.9 g/dL (29.9-35.2); Mean Corpuscular Hemoglobin 29.1 pg (26.7-34.0); Mean Corpuscular Volume 88.4 fL (81.0-99.0); Mean Platelet Volume 9.9 fL (9.5-13.5); Monocytes Absolute Auto 0.7 10^3/uL (0.3-0.8); Neutrophils Absolute Auto 16.7 10^3/uL (1.4-6.5); Neutrophils Percent Auto 93.4 % (43.0-75.0); Platelet Count 317 10^3/uL (150-450); Red Blood Count 4.47 10^6/uL (4.20-5.40); White Blood Count 17.9 10^3/uL (4.0-11.0)
[2024-06-01 06:01] LABS: Alanine Aminotransferase 24 U/L (14-59); Albumin Globulin Ratio 0.7; Albumin Level 2.7 g/dL (3.4-5.0); Alkaline Phosphatase 45 U/L (46-116); Anion Gap 12.3; Aspartate Amino Transferase 23 U/L (15-37); BUN Creatinine Ratio 19.1; Bilirubin Total 0.5 mg/dL (0.2-1.0); Calcium 8.4 mg/dL (8.5-10.1); Carbon Dioxide 23.3 mmol/L (21.0-32.0); Chloride 104 mmol/L (98-107); Estimated GFR (African America 35 (>=60 mL/min/1.73m^2); Estimated GFR (Non-African Ame 29 (>=60 mL/min/1.73m^2); Globulin 3.7 g/dL; Glucose 207 mg/dL (74-106); Magnesium 1.7 mg/dL (1.8-2.4); Potassium 3.6 mmol/L (3.5-5.1); Sodium 136 mmol/L (136-145); Total Protein 6.4 g/dL (6.4-8.2)
[2024-06-01] MEDS: LEVOFLOXACIN IN DEXTROSE 5 % 750 MG/150 ML PREMIX 100 MG IV (08:57)
[2024-06-01] MEDS: INSULIN ASPART 300 UNIT/3 ML PEN 50 UNIT SUBQ ×2 (08:58→17:16)
[2024-06-01] MEDS: INSULIN ASPART 300 UNIT/3 ML PEN SUBQ ×3 (08:58→17:16)
[2024-06-01] MEDS: INSULIN GLARGINE 300 UNIT/3 ML INSULN.PEN 70 UNIT SQ (08:59)
--- NOTE | 2024-06-01 09:00 | P.HP_ITS ---
HPI H&P: HPI History of Present Illness Chief complaint: WEAKNESS, SIRS, FEVER Narrative: Patient presented emergency room with increasing weakness. Found to have significant fever, temperature got up to 101.3. Workup extensively done in ER, showed no focal source of infection. She did have significant lactic acidosis and bandemia consistent with sepsis. Patient was started on Rocephin, medications adjusted this morning When I saw patient up in medical surgical floor, still very fatigued, no specific complaint on exam though she is somewhat tender in her abdomen Opioid HPI Opioid Management Most Recent Pain and Opioid Data: Last Pain Scale 7 06/01/24 09:01 06/01/24 Last Pain Assessment 06/01/24 09:00 Last MAR Pain Assessment 06/01/24 09:01 Last ORT Total Score 0 05/31/24 20:24 05/31/24 Last ORT Risk Category Low Risk 05/31/24 20:24 05/31/24 Review of Systems ROS Status of ROS 10 or more systems reviewed and unremark able except as noted in history and below PFSH PFSH Medical History (Updated 05/31/24 @ 21:17 by Ana Cristina Westbrook) Obesity ?E66.9 - Obesity, unspecified (ICD-10) Macular degeneration ?H35.30 - Unspecified macular degeneration (ICD-10) Occasional tremors ?R25.1 - Tremor, unspecified (ICD-10) Asthma ?J45.909 - Unspecified asthma, uncomplicated (ICD-10) HTN (hypertension) ?I10 - Essential (primary) hypertension (ICD-10) Blood clot in vein ?I82.90 - Acute embolism and thrombosis of unspecified vein (ICD-10) Kidney disease ?N28.9 - Disorder of kidney and ureter, unspecified (ICD-10) Diabetes ?E11.9 - Type 2 diabetes mellitus without complications (ICD-10) Surgical History (Updated 05/31/24 @ 21:17 by Ana Cristina Westbrook) History of cataract surgery ?Z98.49 - Cataract extraction status, unspecified eye (ICD-10) History of tonsillectomy ?Z90.89 - Acquired absence of other organs (ICD-10) History of knee replacement (Unknown) ?Z96.659 - Presence of unspecified artificial knee joint (ICD-10) Hx of cholecystectomy ?Z90.49 - Acquired absence of other specified parts of digestive tract (ICD- 10) Family History (Updated 05/31/24 @ 20:29 by Kayleigh Tello) Father Family history of CHF (congestive heart failure) Family history of cancer Family history of myocardial infarction Mother Family history of diabetes mellitus Family history of hypertension Family history of myocardial infarction Family history of stroke Social History (Updated 05/31/24 @ 20:30 by Kayleigh Tello) Within the past year, how often did you have a drink containing alcohol: never Score interpretation: A score less than 3 is consistent with normal alcohol consumption. Smoking status: Former smoker Non-prescribed substance use: denies use Previous occupational history: retired Highest level of school completed/degree received: some college, no degree Are you now , , , , never or living with a partner: In a typical week, how many times do you talk on the telephone with family, friends, or neighbors: 3 or more times per week How often do you get together with friends or relatives: once per week How often do you attend christian or presybeterian services: never Do you belong to any clubs or organizations such as christian groups unions, [employer] or athletic groups, or school groups: no Total score: 2 Score interpretation: A score of greater than or equal to 2 indicates the lowest level of social isolation. Little interest or pleasure in doing things: not at all Feeling down, depressed, or hopeless: not at all Feel stressed/tense/nervous/anxious/difficulty sleeping: not at all Do you think of yourself as: straight/heterosexual Gender Identity: female Meds Home Medications and Allergies Home Medications ?Medication ?Instructions ?Recorded ?Confirmed ?Type acetaminophen 500 mg tablet 1,000 mg PO Q6H PRN fever or pain 05/31/24 05/31/24 History (Acetaminophen Extra Strength) allopurinol 100 mg tablet 100 mg PO DAILY 05/31/24 05/31/24 History apixaban 5 mg tablet (Eliquis) 5 mg PO BID 05/31/24 05/31/24 History biotin 2,500 mcg capsule 6,000 mcg PO Q12H 05/31/24 05/31/24 History empagliflozin 25 mg tablet 25 mg PO DAILY 05/31/24 05/31/24 History (Jardiance) fenofibrate nanocrystallized 145 145 mg PO QDAY 05/31/24 06/01/24 History mg tablet finerenone 20 mg tablet (Kerendia) 20 mg PO DAILY 05/31/24 05/31/24 History fluticasone furoate 200 1 inh inhalation DAILY 05/31/24 05/31/24 History mcg-vilanterol 25 mcg/dose inhalation powder (Breo Ellipta) furosemide 20 mg tablet 40 mg PO DAILY 05/31/24 05/31/24 History insulin aspart U-100 100 unit/mL 50 unit subcut Q12H 05/31/24 05/31/24 History (3 mL) subcutaneous pen (Novolog FlexPen U-100 Insulin aspart) insulin degludec 200 unit/mL (3 70 unit subcut Q12H 05/31/24 05/31/24 History mL) subcutaneous pen (Tresiba FlexTouch U-200 insulin) loperamide 2 mg capsule 2 mg PO Q6H PRN loose stool 05/31/24 05/31/24 History losartan 100 mg tablet 100 mg PO DAILY 05/31/24 05/31/24 History omeprazole 20 mg capsule,delayed 40 mg PO DAILY 05/31/24 05/31/24 History release semaglutide 1 mg/dose (4 mg/3 mL) 1 mg subcut .week 05/31/24 05/31/24 History subcutaneous pen injector (Ozempic) topiramate 50 mg tablet 50 mg PO Q12H 05/31/24 05/31/24 History tramadol 50 mg tablet 50 mg PO Q6H PRN pain 05/31/24 05/31/24 History verapamil 240 mg 24 hr 240 mg PO DAILY 05/31/24 05/31/24 History capsule,extended release vit C 250 mg-vit E 90 mg-zinc 40 1 tab PO BID 05/31/24 05/31/24 History mg-copper 1 [id number]-zctuni capsule (PreserVision AREDS-2) Allergies Allergy/AdvReac Type Severity Reaction Status Date / Time doxycycline AdvReac Severe Nausea Verified 05/31/24 17:26 Exam Constitutional Vital Signs, click to edit/add: Last Vital Signs Temp 98.8 F 06/01/24 08:51 Pulse 85 06/01/24 08:51 Resp 20 06/01/24 08:51 BP 146/69 H 06/01/24 08:51 Pulse Ox 91 L 06/01/24 08:51 O2 Del Method Room Air 06/01/24 08:51 Documenting provider has reviewed patient's vital signs: yes Common normals: apparent distress (Mild distress due to weakness) Respiratory Common normals: normal respiratory effort, no retractions and clear to auscultation bilaterally Effort & inspection: no respiratory distress Cardio Common normals: regular rate and regular rhythm GI Common normals: Normal to inspection, nondistended, normoactive bowel sounds present and soft to palpation; tender (Tender left lower quadrant, no rebound) Results Labs Labs: Short CBC 05/31/24 06/01/24 Range/Units 16:30 05:20 WBC 10.2 17.9 H (4.0-11.0) 10^3/uL Hgb 15.0 13.0 (12.0-16.0) g/dL Hct 46.7 39.5 (36.0-48.0) % Plt Count 342 317 (150-450) 10^3/uL BMP 05/31/24 06/01/24 16:30 05:20 Sodium 137 136 Potassium 3.6 3.6 Chloride 100 104 Carbon Dioxide 23.6 23.3 BUN 30.0 H 33.0 H Creatinine 1.85 H 1.73 H Glucose 319 H 207 H Calcium 9.2 8.4 L Liver Function 05/31/24 06/01/24 Range/Units 16:30 05:20 Total Bilirubin 0.5 0.5 (0.2-1.0) mg/dL AST 19 23 (15-37) U/L ALT 23 24 (14-59) U/L Alkaline Phosphatase 60 45 L (46-116) U/L Albumin 3.4 2.7 L (3.4-5.0) g/dL Urine 05/31/24 Range/Units 16:42 Urine Color Yellow (YELLOW) Urine Clarity Clear (CLEAR) Urine pH 6.0 (5.0-9.0) Ur Specific [place] 1.015 (1.005-1.025) Urine Protein Negative (NEG/TRACE) mg/dL Urine Glucose (UA) 100 A (NEGATIVE) mg/dL ABG ABG results: 05/31/24 06/01/24 16:30 06:41 VBG pH 7.296 L 7.540 H VBG pCO2 42.0 20.0 L Assessment and Plan Assessment and Plan (1) Acute urinary retention: (2) SIRS (systemic inflammatory response syndrome): Plan Admission findings: Fever, 101.3, sinus tachycardia, respiratory distress, lactic acidosis, bandemia, white blood cell count normal but with left shift consistent with bacterial process, metabolic acidosis related to the severe sepsis. Uncertain source although with tenderness in left lower quadrant early diverticulitis would be most likely source of infection Severe sepsis without shock-likely secondary to acute diverticulitis, will adjust antibiotics to cover gram-negative x 2 and anaerobes with Flagyl. Continue with fluid resuscitation, currently she is metabolic alkalosis likely from respiratory, will repeat chest x-ray Acute elevation in creatinine-improved today, consistent with dehydration Acute urinary retention-she has not had trouble with this in the past, will try to remove Askew and bladder scan as needed NIDDM-insulin sliding scale Hypomagnesemia-supplement Pulmonary embolism-continue with Eliquis History of chronic combined congestive heart failure, will hold off on Jardiance and Lasix High blood pressure by history-continue with medications GERD continue with home medications Admission status: Patient with severe sepsis criteria with fever, tachycardia, respiratory distress, bandemia, metabolic acidosis, lactic acidosis likely due to diverticulitis. Medically necessary treatment will span 2 midnights. Inpatient status Urinary Catheter Management Urinary Catheter Management 2-way Urethral: Cath placed during this visit: yes Urethral indwelling: Yes Reason for continuing: acute urinary retention Insertion date: 05/31/24 Insertion time: 17:50
[2024-06-01] MEDS: TOPIRAMATE 25 MG TABLET 50 MG PO ×2 (09:01→21:24)
[2024-06-01] MEDS: ALLOPURINOL 100 MG TABLET PO (09:01)
[2024-06-01] MEDS: CANAGLIFLOZIN 100 MG TABLET 300 MG PO (09:01)
[2024-06-01] MEDS: APIXABAN 5 MG TABLET PO ×2 (09:01→21:24)
[2024-06-01] MEDS: VERAPAMIL HCL ER 240 MG TABLET PO (09:01)
[2024-06-01] MEDS: OMEPRAZOLE 20 MG CAPSULE.DR PO (09:01)
[2024-06-01] MEDS: MAGNESIUM OXIDE 400 MG TABLET PO ×2 (09:02→21:24)
--- NOTE | 2024-06-01 09:30 | CM.NOTE ---
Rounds made with Dr. Bill, no discharge today. Pt having some abdominal tenderness will get abdominal x-ray today and repeat chest x-ray.
--- NOTE | 2024-06-01 09:35 | XR_ITS ---
[place] [id number] Patient Name: CHLOE PICKENS MRN: [id number] date: 1950 Sex: F Assigned Patient Location: [place] Current Patient Location: [place] Accession/Order Number: [id number] Exam Date: 06/01/2024 09:20 Report Date: 06/01/2024 09:48 At the request of: LISBET MILLER Procedure: XR chest 2V EXAMINATION: XR chest 2V HISTORY: follow up pneumonia on previous COMPARISON: 05/31/2024 TECHNIQUE: AP erect FINDINGS: LUNGS: No significant pulmonary parenchymal abnormalities. VASCULATURE: Mildly increased pulmonary vasculature. PLEURA: No pneumothorax, effusion, or pleural thickening. CARDIAC: No cardiomegaly or cardiac silhouette abnormality. MEDIASTINUM: No visible mass or adenopathy. BONES: No fracture or visible bone lesion. OTHER: Negative. XR/XR chest 2V IMPRESSION: Pulmonary vascular congestion Electronically authenticated by: YISEL BETANCOURT Date: 06/01/2024 09:48
--- NOTE | 2024-06-01 09:51 | CM.NOTE ---
Important Message From Medicare discussed with pt, pt verbalizes understanding and signs paper. Original given to pt and copy placed on pt's chart.
[2024-06-01] MEDS: BUDESONIDE 0.5 MG/2 ML AMPULE NEB IH ×2 (10:15→22:14)
[2024-06-01] MEDS: IPRATROPIUM/ALBUTEROL SULFATE 3 ML AMPUL.NEB IH ×3 (10:15→22:14)
--- NOTE | 2024-06-01 10:53 | XR_ITS ---
The [address] [address] Patient Name: CHLOE PICKENS MRN: [id number] date: 1950 Sex: F Assigned Patient Location: Current Patient Location: Accession/Order Number: [id number] Exam Date: 06/01/2024 10:40 Report Date: 06/01/2024 11:16 At the request of: LISBET MILLER Procedure: XR abdomen min 2V EXAMINATION: XR abdomen min 2V, 06/01/2024 10:40 AM EST HISTORY: follow up possible pneumonia, LLQ pain COMPARISON: 05/31/2024 TECHNIQUE: Single view of the abdomen. FINDINGS: Medical devices: None. Nonobstructive bowel gas pattern. Few calcifications project over the left kidney measuring up to 9 mm greatest diameter relate to intrarenal calculi seen on recent CT. Cholecystectomy. No definite free intraperitoneal gas. XR/XR abdomen min 2V IMPRESSION: 1. Nonobstructive bowel gas pattern. 2. Left intrarenal calculi. Electronically authenticated by: LASHELL OAKLEY Date: 06/01/2024 11:16
[2024-06-01 11:44] LABS: Glucometer 201 mg/dL (74-106)
[2024-06-01] MEDS: METRONIDAZOLE/SODIUM CHLORIDE 500 MG/100 ML PREMIX 100 MG IV ×3 (12:00→22:29)
--- NOTE | 2024-06-01 13:23 | SWNOTE1 ---
OT recommended home health services. SW to see if patient agreeable.
[2024-06-01] MEDS: 0.9 % SODIUM CHLORIDE 1,000 ML 75 ML IV (14:31)
--- NOTE | 2024-06-01 15:46 | DIETREC ---
Current diet order: 2400 kcal CCD which exceeds pt's estimated energy needs. Recommend 2000 kcal CCD; text to Dr. Bill.
[2024-06-01 16:45] LABS: Glucometer 200 mg/dL (74-106)
[2024-06-01] MEDS: CEFTRIAXONE 2,000 MG in 0.9 % SODIUM CHLORIDE 100 ML 200 MG IV (18:56)
[2024-06-01 19:47] LABS: Glucometer 158 mg/dL (74-106)
[2024-06-01] MEDS: HYDROCODONE/ACET 5-325 MG TABLET 1 TAB PO (21:23)
[2024-06-01 21:37] LABS: Glucometer 124 mg/dL (74-106)
[2024-06-02] VITALS (8 sets, daily range): BP systolic 138–145; BP diastolic 70–76; PULSE 60–83; TEMP 36.4–37.1; O2SAT 90–94
[2024-06-02] MEDS: IPRATROPIUM/ALBUTEROL SULFATE 3 ML AMPUL.NEB IH (04:27)
[2024-06-02] MEDS: ACETAMINOPHEN 325 MG TABLET 650 MG PO ×2 (04:36→09:22)
[2024-06-02] MEDS: 0.9 % SODIUM CHLORIDE 1,000 ML 75 ML IV (04:37)
[2024-06-02] MEDS: METRONIDAZOLE/SODIUM CHLORIDE 500 MG/100 ML PREMIX 100 MG IV (04:38)
[2024-06-02 04:52] LABS: Glucometer 149 mg/dL (74-106)
[2024-06-02 05:27] LABS: PCO2 VBG 30.9 mmHg (40.0-52.0); pH VBG 7.434 (7.330-7.430)
[2024-06-02 05:28] LABS: Basophils Percent Auto 0.4 % (0.2-2.0); Eosinophils Absolute Auto 0.1 10^3/uL (0.0-0.7); Eosinophils Percent Auto 1.4 % (0.9-7.0); Hematocrit 37.1 % (36.0-48.0); Hemoglobin 12.1 g/dL (12.0-16.0); Immature Granulocytes Abs Auto 0.06 10^3/uL (0.00-0.03); Immature Granulocytes Pct Auto 0.6 % (0.0-0.5); Lymphocytes Absolute Auto 0.8 10^3/uL (1.2-3.8); Lymphocytes Percent Auto 8.4 % (20.5-60.0); Mean Corpuscular HGB Conc 32.6 g/dL (29.9-35.2); Mean Platelet Volume 9.9 fL (9.5-13.5); Monocytes Absolute Auto 0.7 10^3/uL (0.3-0.8); Monocytes Percent Auto 7.3 % (1.7-12.0); Neutrophils Absolute Auto 7.7 10^3/uL (1.4-6.5); Neutrophils Percent Auto 81.9 % (43.0-75.0); Platelet Count 261 10^3/uL (150-450); Red Blood Count 4.17 10^6/uL (4.20-5.40); Red Cell Distribution Width 15.3 % (11.0-15.0); White Blood Count 9.4 10^3/uL (4.0-11.0)
[2024-06-02 05:44] LABS: Anion Gap 13.4; BUN Creatinine Ratio 20.6; Calcium 8.6 mg/dL (8.5-10.1); Chloride 107 mmol/L (98-107); Estimated GFR (African America 40 (>=60 mL/min/1.73m^2); Estimated GFR (Non-African Ame 33 (>=60 mL/min/1.73m^2); Glucose 176 mg/dL (74-106); Potassium 3.4 mmol/L (3.5-5.1); Sodium 139 mmol/L (136-145)
[2024-06-02 07:46] LABS: Glucometer 166 mg/dL (74-106)
--- NOTE | 2024-06-02 08:44 | CM.NOTE ---
Rounds made with Dr. Bill. Potential plan for discharge after works with [facility] reyn[facility]. Daniela in agreement.
--- NOTE | 2024-06-02 09:04 | P.DS_ITS ---
DS: Providers Provider Date of admission: 06/01/24 06:19 Primary care physician: IVETH MERCER Consults: 06/01/24 06:19 Occupational Therapy Eval and Treat Routine Reason for consultation: Only if needed for Rehab Has provider been notified: No Physical Therapy Eval and Treat Routine Reason for consultation: Eval and Treat Has provider been notified: No DS: Diagnosis Discharge Diagnosis (1) Acute urinary retention: (2) SIRS (systemic inflammatory response syndrome): Plan Admission findings: Fever, 101.3, sinus tachycardia, respiratory distress, lactic acidosis, bandemia, white blood cell count normal but with left shift consistent with bacterial process, metabolic acidosis related to the severe sepsis. Uncertain source although with tenderness in left lower quadrant early diverticulitis would be most likely source of infection Severe sepsis without shock-likely secondary to acute diverticulitis pneumonia,, will adjust antibiotics to cover gram-negative x 2 and anaerobes with Flagyl. Improving at the time of discharge Acute elevation in creatinine-improved today, consistent with dehydration Acute urinary retention-she has not had trouble with this in the past, will try to remove Askew and bladder scan as needed NIDDM-insulin sliding scale Hypomagnesemia-supplement Pulmonary embolism-continue with Eliquis History of chronic combined congestive heart failure, will hold off on Jardiance and Lasix High blood pressure by history-continue with medications GERD continue with home medications Morbid obesity-diet management Sleep apnea-uses her home machine Admission status: Patient with severe sepsis criteria with fever, tachycardia, respiratory distress, bandemia, metabolic acidosis, lactic acidosis likely due to diverticulitis. Medically necessary treatment will span 2 midnights. Inpatient status Urinary Catheter Management DS: Summary Hospital Course Hospital Course: Patient was admitted with increasing weakness and found to meet criteria for severe sepsis. On exam the first day she did have some tenderness in the left lower quadrant, she was on antibiotics and the following day that pain in the left lower quadrant had resolved, chest x-ray consistent with bilateral pneumonia as well as a potential source for the severe sepsis. She did not require supplemental oxygen, she feels overall improved today. If this point if she is ambulating safely, no hypoxia she can be discharged to home in improving condition. Medications see list. Follow-up with PCP within the next week. Status at Discharge Overall status at discharge: patient is not back to baseline Time Spent with Patient Time attestation: Total time spent providing and/or coordinating discharge services: Time spent: greater than 30 minutes Exam Constitutional Vital Signs, click to edit/add: Last Vital Signs Temp 98.7 F 06/02/24 07:42 Pulse 74 06/02/24 07:50 Resp 20 06/02/24 07:42 BP 138/70 06/02/24 07:42 Pulse Ox 94 L 06/02/24 07:42 O2 Del Method Room Air 06/02/24 07:42 DS: Data Data Completed and Pending Labs on day of discharge: Labs from last 24 hours 06/02/24 06/02/24 06/02/24 07:44 05:11 04:48 WBC 9.4 RBC 4.17 L Hgb 12.1 Hct 37.1 MCV 89.0 MCH 29.0 MCHC 32.6 RDW 15.3 H Plt Count 261 MPV 9.9 Neut % (Auto) 81.9 H Lymph % (Auto) 8.4 L Gooding % (Auto) 7.3 Eos % (Auto) 1.4 Baso % (Auto) 0.4 Neut # (Auto) 7.7 H Lymph # (Auto) 0.8 L Good[place] # (Auto) 0.7 Eos # (Auto) 0.1 Baso # (Auto) 0.0 Abs Immat Gran (auto) 0.06 H Imm/Tot Granulo (auto) 0.6 H VBG pH 7.434 H VBG pCO2 30.9 L Sodium 139 Potassium 3.4 L Chloride 107 Carbon Dioxide 22.0 Anion Gap 13.4 BUN 32.0 H Creatinine 1.55 H Est GFR ( Amer) 40 L Est GFR (Non-Af Amer) 33 L BUN/Creatinine Ratio 20.6 Glucose 176 H Calcium 8.6 NT-Pro-B Natriuret Pep 401.0 POC Glucose 166 H 149 H 06/01/24 06/01/24 06/01/24 21:34 19:45 16:44 WBC RBC Hgb Hct MCV MCH MCHC RDW Plt Count MPV Neut % (Auto) Lymph % (Auto) Good[place] % (Auto) Eos % (Auto) Baso % (Auto) Neut # (Auto) Lymph # (Auto) Gooding # (Auto) Eos # (Auto) Baso # (Auto) Abs Immat Gran (auto) Imm/Tot Granulo (auto) VBG pH VBG pCO2 Sodium Potassium Chloride Carbon Dioxide Anion Gap BUN Creatinine Est GFR ( Amer) Est GFR (Non-Af Amer) BUN/Creatinine Ratio Glucose Calcium NT-Pro-B Natriuret Pep POC Glucose 124 H 158 H 200 H 06/01/24 06/01/24 11:43 06:41 WBC RBC Hgb Hct MCV MCH MCHC RDW Plt Count MPV Neut % (Auto) Lymph % (Auto) Good[place] % (Auto) Eos % (Auto) Baso % (Auto) Neut # (Auto) Lymph # (Auto) Gooding # (Auto) Eos # (Auto) Baso # (Auto) Abs Immat Gran (auto) Imm/Tot Granulo (auto) VBG pH 7.540 H VBG pCO2 20.0 L Sodium Potassium Chloride Carbon Dioxide Anion Gap BUN Creatinine Est GFR ( Amer) Est GFR (Non-Af Amer) BUN/Creatinine Ratio Glucose Calcium NT-Pro-B Natriuret Pep POC Glucose 201 H Discharge Plan Discharge Disposition: Home, Self-Care Condition: Good Discharge Medications: New levofloxacin 750 mg tablet 750 mg PO DAILY 10 Days Qty: 10 0RF Continued allopurinol 100 mg tablet 100 mg PO DAILY Kerendia 20 mg tablet 20 mg PO DAILY losartan 100 mg tablet 100 mg PO DAILY omeprazole 20 mg capsule,delayed release(DR/EC) 40 mg PO DAILY topiramate 50 mg tablet 50 mg PO Q12H tramadol 50 mg tablet 50 mg PO Q6H PRN (Reason: pain) verapamil 240 mg capsule,ext rel. pellets 24 hr 240 mg PO DAILY Eliquis 5 mg tablet 5 mg PO BID insulin aspart U-100 [Novolog FlexPen U-100 Insulin] 100 unit/mL (3 mL) insulin pen 50 unit SUBCUT Q12H insulin degludec [Tresiba FlexTouch U-200] 200 unit/mL (3 mL) insulin pen 70 unit SUBCUT Q12H fenofibrate nanocrystallized 145 mg tablet 145 mg PO QDAY furosemide 20 mg tablet 40 mg PO DAILY loperamide 2 mg capsule 2 mg PO Q6H PRN (Reason: loose stool) biotin 2,500 mcg capsule 6,000 mcg PO Q12H PreserVision AREDS-2 250-90-40-1 mg capsule 1 tab PO BID fluticasone furoate-vilanterol [Breo Ellipta] 200-25 mcg/dose blister with device 1 inh inhalation DAILY acetaminophen [Acetaminophen Extra Strength] 500 mg tablet 1,000 mg PO Q6H PRN (Reason: fever or pain) Jardiance 25 mg tablet 25 mg PO DAILY Ozempic 1 mg/dose (4 mg/3 mL) pen injector 1 mg SUBCUT .week Print Language: Yemeni Patient Instructions: Levofloxacin (By mouth), Acute Urinary Retention in Women (ED), Weakness (DC) Forms: Portal Instructions Follow Up Appointments: Jun.10 @ 10:30am with Dr. Mercer [phone]
--- NOTE | 2024-06-02 09:14 | SWNOTE1 ---
SW did stop in and speak with pt yesterday in regards to recommendations of home health services. Pt at this time is refusing home health and does not feel she needs it. Pt lives at home with . Pt does not use any DME at home. Pt does not feel she needs anything to assist her to walk, but does have a walker at home if needed. At this time pt refusing services at home.
[2024-06-02] MEDS: VERAPAMIL HCL ER 240 MG TABLET PO (09:21)
[2024-06-02] MEDS: ALLOPURINOL 100 MG TABLET PO (09:22)
[2024-06-02] MEDS: OMEPRAZOLE 20 MG CAPSULE.DR PO (09:22)
[2024-06-02] MEDS: TOPIRAMATE 25 MG TABLET 50 MG PO (09:22)
[2024-06-02] MEDS: APIXABAN 5 MG TABLET PO (09:22)
[2024-06-02] MEDS: MAGNESIUM OXIDE 400 MG TABLET PO (09:22)
--- NOTE | 2024-06-03 15:14 | CM.DCFOLLOWU ---
Person spoke with:patient How are you feeling? hanging in there How is your pain? no pain at this time Did you understand your discharge instructions? yes Do you have any questions about your discharge instructions? no Were you given any prescriptions at discharge?yes Were you able to get your prescriptions filled?yes Do you understand how to take your medications as ordered?yes Do you have any questions about your follow up appointment and do you plan to keep your follow up appointment? no questions, follow up reviewed Is there anything else that you would like to discuss? Yes, she voiced on her home med list was furosemide. She stated when she was leaving she noticed her legs were starting to swell and she realized she did not take that medication while she was here. She stated she notified the student nurse and she was going to inform instructor. She voiced she informed ED of her home med list. She stated once she arrived home she took it and she still has compression stockings on. She thinks swelling is going down. She stated she is usually on top of that, but was not feeling well while she was here. Advised patient that can reach out to administration, but at this time she does not feel that is necessary. She voiced she just wanted someone to be aware. Questions/Comments/Concerns/Other: N/A
[2024-06-04 06:31] LABS: A. calcoaceticus-baumannii Cpx NOT DETECTED (NOT DETECTE); Bacteroides fragilis NOT DETECTED (NOT DETECTE); Enterobacter cloacae complex NOT DETECTED (NOT DETECTE); Enterobacterales NOT DETECTED (NOT DETECTE); Enterococcus faecalis NOT DETECTED (NOT DETECTE); Enterococcus faecium NOT DETECTED (NOT DETECTE); Klebsiella aerogenes NOT DETECTED (NOT DETECTE); Klebsiella pneumoniae group NOT DETECTED (NOT DETECTE); Listeria monocytogenes NOT DETECTED (NOT DETECTE); Proteus spp. NOT DETECTED (NOT DETECTE); Salmonella spp. NOT DETECTED (NOT DETECTE); Serratia marcescens NOT DETECTED (NOT DETECTE); Staphylococcus epidermidis NOT DETECTED (NOT DETECTE); Staphylococcus lugdunensis NOT DETECTED (NOT DETECTE); Staphylococcus spp. NOT DETECTED (NOT DETECTE); Streptococcus agalactiae NOT DETECTED (NOT DETECTE); Streptococcus pneumoniae NOT DETECTED (NOT DETECTE); Streptococcus pyogenes NOT DETECTED (NOT DETECTE); Streptococcus spp. NOT DETECTED (NOT DETECTE)
[2024-06-04 06:32] LABS: Candida albicans NOT DETECTED (NOT DETECTE); Candida auris NOT DETECTED (NOT DETECTE); Candida glabrata NOT DETECTED (NOT DETECTE); Candida krusei NOT DETECTED (NOT DETECTE); Candida parapsilosis NOT DETECTED (NOT DETECTE); Candida tropicalis NOT DETECTED (NOT DETECTE); Cryptococcus neoformans/gattii NOT DETECTED (NOT DETECTE); Haemophilus influenzae NOT DETECTED (NOT DETECTE); Neisseria meningitidis NOT DETECTED (NOT DETECTE); Pseudomonas aeruginosa NOT DETECTED (NOT DETECTE); Stenotrophomonas maltophilia NOT DETECTED (NOT DETECTE)
[2024-06-04 07:51] LABS: Source Blood
== END 2024-06-02 10:27 | disposition home or self-care (01) | DRG 871 ==
LOC: ER 19:37 → MS 20:23
PROVIDERS: Physician Assistant; Registered Nurse; Admitting Provider Family Medicine; Emergency Provider Emergency Medicine; PCP Internal Medicine; Visit Provider Family Medicine
DX: A41.9 Sepsis, unspecified organism (principal); J18.9 Pneumonia, unspecified organism; E87.3 Alkalosis; I50.42 Chronic combined systolic (congestive) and diastolic (congestive) heart failure; Z68.42 Body mass index [BMI] 45.0-49.9, adult; R33.9 Retention of urine, unspecified; R65.20 Severe sepsis without septic shock; R06.03 Acute respiratory distress; E86.0 Dehydration; E11.9 Type 2 diabetes mellitus without complications; Z79.4 Long term (current) use of insulin; Z79.85 Long-term (current) use of injectable non-insulin antidiabetic drugs; E83.42 Hypomagnesemia; I11.0 Hypertensive heart disease with heart failure; K21.9 Gastro-esophageal reflux disease without esophagitis; J45.909 Unspecified asthma, uncomplicated; E66.01 Morbid (severe) obesity due to excess calories; Z98.49 Cataract extraction status, unspecified eye; Z90.49 Acquired absence of other specified parts of digestive tract; Z87.891 Personal history of nicotine dependence; Z86.711 Personal history of pulmonary embolism; G47.30 Sleep apnea, unspecified
CPT/HCPCS: 36415; 70450; 71045; 71046; 74019; 74176; 80048; 80053; 81001; 82800; 82948; 83605; 83735; 83880; 84443; 84484; 85007; 85025; 85027; 85610; 87040; 87070; 87150; 87420; 87804; 87811; 93005; 94640; 94667; 94668; 94761; 96365; 97161; 97165; 97535; 99285; G0378; J0696; J1836

== ENCOUNTER 2024-06-18 13:30 | Outpatient (OUT) | payer MEDICARE, OTHER, SELFPAY ==
[2024-06-18 14:59] LABS: Alanine Aminotransferase 18 U/L (14-59); Albumin Globulin Ratio 0.9; Albumin Level 3.3 g/dL (3.4-5.0); Alkaline Phosphatase 49 U/L (46-116); Anion Gap 12.6; Aspartate Amino Transferase 18 U/L (15-37); BUN Creatinine Ratio 21.3; Bilirubin Total 0.4 mg/dL (0.2-1.0); Calcium 9.1 mg/dL (8.5-10.1); Carbon Dioxide 26.6 mmol/L (21.0-32.0); Chloride 102 mmol/L (98-107); Estimated GFR (African America 46 (>=60 mL/min/1.73m^2); Estimated GFR (Non-African Ame 38 (>=60 mL/min/1.73m^2); Globulin 3.8 g/dL; Glucose 172 mg/dL (74-106); Magnesium 1.9 mg/dL (1.8-2.4); Potassium 4.2 mmol/L (3.5-5.1); Sodium 137 mmol/L (136-145); Total Protein 7.1 g/dL (6.4-8.2)
== END 2024-06-18 13:31 | disposition home or self-care (01) ==
LOC: LAB 13:31
PROVIDERS: PCP Internal Medicine; Visit Provider Internal Medicine
DX: A42.7 Actinomycotic sepsis (principal)
CPT/HCPCS: 36415; 80053; 83735

== ENCOUNTER 2024-06-30 20:14 | Inpatient (IN) | payer MEDICARE, OTHER, SELFPAY ==
[2024-06-30] VITALS (21 sets, daily range): BP systolic 125–134; BP diastolic 60–64; PULSE 101–113; TEMP 36.9; O2SAT 93–97; BMI 47.2
--- NOTE | 2024-06-30 20:18 | ECG_ITS ---
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
--- OUTSIDE RECORDS SUMMARY | 2024-06-30 20:18 | XMS_ITS | CCD ---
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 Name Role Phone RAJESH MERCER Unavailable Unavailable SERGIO, DILAN Unavailable Unavailable RAJESH MERCER Unavailable Unavailable SERGIO, DILAN Unavailable Unavailable None, No PCP Unavailable Unavailable Rdz, Reyna Unavailable Unavailable LAVERNE, DR ANTHONY Admitting Unavailable LAVERNE, DR ANTHONY Attending Unavailable DR RAJESH MERCER Primary Care Unavailable Sergio, Dilan Unavailable Qamar Rowan Unavailable [phone] RACHEL Mercer Primary Care Provider MD Dilan Nguyễn Attending Provider [phone] RACHEL Mercer Primary Care Provider [phone] MD Dilan Nguyễn Attending Provider RACHEL Mercer Primary Care Provider MD Dilan Nguyễn Attending Provider [phone] Dari Carlson Unavailable Unavailable Rajesh Mercer II [...] able Rajesh Mercer MD Primary Care Provider RACHEL Mercer Primary Care Provider [phone] MD Dilan Nguyễn Attending Provider [phone] Rajesh Mercer MD Primary Care Provider REYNA RDZ Attending Unavailable RAJESH MERCER Primary Care Unavailable REYNA RDZ Attending Unavailable RAJESH MERCER Primary Care Unavailable RACHEL Mercer Primary Care Provider MD Dilan Nguyễn Attending Provider Rajesh Mercer MD Primary Care Provider Rajesh Mercer MD Unavailable [phone] MAGGI PERALTA Attending Unavailable RAJESH MERCER B Referring Unavailable RAJESH MERCER Primary Care Unavailable MAGGI PERALTA Attending Unavailable RAJESH MERCER Referring Unavailable RAJESH MERCER Primary Care Unavailable GINA BUSTILLO Attending Unavailable RAJESH MERCER Referring Unavailable RAJESH MERCER Primary Care Unavailable Sergoi, Dilan Admitting Unavailable Rajesh Mercer Primary Care Unavailable Sergio, Dilan Attending Unavailable Sergio, Dilan Admitting Unavailable Rajesh Mercer Primary Care Unavailable Sergio, Dilan Attending Unavailable Sergio, Dilan Admitting Unavailable MercerRudyel Primary Care Unavailable Sergio, Dilan Attending Unavailable Ruslan Rajesh Primary Care Unavailable Sergio, Dilan Admitting Unavailable Sergio, Dilan Attending Unavailable Aileen Jr, Dez T Attending Unavailable Aileen Jr, Dez T Referring Unavailable Aileen Jr, Dez T Attending Unavailable Aileen Jr, Dez T Referring Unavailable Aileen Jr, Dez T Attending Unavailable Aileen Jr, Dez T Referring Unavailable Rajesh Mercer MD Primary Care Provider [phone] Corry Rodriguez RN Unavailable RAJESH MERCER Attending Unavailable KAILEE NOVA Attending Unavailable RAJESH MERCER Attending Unavailable THOMAS, KAILEE H Attending Unavailable THOMAS, KAILEE H Attending Unavailable THOMAS, KAILEE H Attending Unavailable THOMAS, KAILEE H Attending Unavailable GINA ZARATE Attending Unavailable THOMAS, KAILEE H Attending Unavailable THOMAS, KAILEE H Attending Unavailable THOMAS, KAILEE H Attending Unavailable Allergies Allergy Classification Reported Allergen(s) Allergy Type Date of Onset Reaction(s) Facility Doxycycline (2 sources) Doxycycline; Translations: [doxycycline] Drug Allergy [facility] Work Phone: (20 sources) Doxycycline; Translations: [doxycycline] Drug Allergy 0 Rash, Unknown [facility] (1 source) Propensity to adverse reactions to drug 0 [facility] (1 source) Propensity to adverse reactions to drug 0 [facility] (1 source) Doxycycline Drug Allergy 7 [facility] Repository (17 sources) cat and dog dander as a youth Propensity to adverse reactions Unknown [employer] Other (18 sources) Ragweed Propensity to adverse reactions Unknown [employer] Other (17 sources) dust as a youth Propensity to adverse reactions Unknown [employer] Other (17 sources) chocolate as a youth Propensity to adverse reactions Unknown [employer] Other (1 source) Propensity to adverse reactions to drug 0 [facility] (1 source) Propensity to adverse reactions to drug 0 [facility] (2 sources) Chocolate; Translations: [chocolate flavor] Drug allergy 3 Unknown [facility] Repository (1 source) House dust mite Drug allergy Unknown [employer] Other (4 sources) house dust allergenic extract; Translations: [house dust] Drug Allergy 4 [facility] (4 sources) Ragweed pollen; Translations: [ragweed pollen] Allergy to substance 4 [facility] (20 sources) Lanolin Drug Allergy 3 Unknown [facility] (1 source) Doxycycline Drug Allergy 4 [facility] Repository (1 source) Unable to Assess Drug allergy (disorder) 05-03-202 1 [facility] Repository Medications Current Medications Medication Drug Class(es) [...] ( ) take 2 tablets by mo [facility] every six hours as needed Acetaminophen 500 MG 2 tablet as needed Orally every 6 hrs Active albuterol 0.83 mg/ml inhalation solution (20 sources) beta2-Adrenergic Agonist Start: 06-18-2024 albut elizabeth (2.5 MG/3ML) 0.083% nebulizer solution Indications: Chronic obstructive pulmonary disease, unspecified COPD type (CMS/HCC) Take 3 mL (2.5 mg) by nebulization every 4 (four) hours if needed for wheezing 75 mL 3 06/18/2024 Active Start: 08-26-2023 End: 06-18-2024 take 2.5 mg by inhalation four times [...] sources) Xanthine Oxidase Inhibitor Start: 08-15-2021 allopurinol (Zyloprim) 100 MG tablet Indications: Mixed hyperlipidemia (CMS/HCC) TAKE 1 TABLET EVERY DAY 90 tablet 3 04/12/2024 Active amoxicillin 500 mg oral capsule (3 sources) Penicillin-class Antibacterial Start: 06-18-2024 End: 06-18-2024 take 4 capsules by mouth once, then take 1 capsule by mouth every hour amoxicillin (Amoxil) 500 MG capsule Indications: Presence of both artificial knee joints Take 4 capsules (2,000 mg) by mouth 1 (one) time for 1 dose Take 1 hour prior to procedure. 4 capsule 5 06/18/2024 06/18/2024 Active apixaban 5 mg oral tablet (20 [...] ascorbic acid 226 mg / beta carotene 83974 unt / cuprous oxide 0.8 mg / dl-alpha tocopheryl acetate 200 unt / zinc oxide 34.8 mg oral capsule (20 sources) Vitamin C Multiple Vitamins-Minerals (PreserVision AREDS) [...] tablet (2 sources) Macrolide Antimicrobial Start: 020 [id number] Medication azithromycin 250 mg tablet azithromycin 250 [...] pl (OneTouch Verio Flex System) w/Device kit (20 sources) Start: 12-26-2022 Blood Glucose Monitoring Suppl (OneTouch Verio Flex System) w/Device kit USE TO CHECK GLUCOSE 4 TIMES DAILY 12/26/2022 Active blood-glucose meter (ONETOUC H VERIO METER) [facility] (14 sources) Start: 12-23-2022 blood-glucose meter (ONETOUCH VERIO METER) [facility] Indications: Type 2 diabetes mellitus with hypoglycemia without coma, without long-term current use of insulin ([facility] Use daily 4 times a day DX:E11.65 1 each 12/23/2022 Active Start: 12-23-2022 blood-glucose meter (ONETOUCH VERIO METER) [facility] Indications: Type 2 diabetes mellitus with hypoglycemia without coma, without long-term current use of insulin ([facility]) Use daily 4 times a day DX:E11.65 [...] Not-Taking cholecalciferol, vitamin D3, (VITAMIN D3 ORAL) (14 sources) cholecalciferol, vitamin D3, (VITAMIN D3 ORAL) Take by mouth. Active cholecalciferol, vitamin D3, (VITAMIN D3 ORAL) Take by mouth. 0 Active CPAP Machine (18 sources) CPAP Machine Act reji 0.5 ml dulaglutide 3 mg/ml auto-injector (20 sources) GLP-1 Receptor Agonist Start: 06-16-2020 dulaglutide (Trulicity) 1.5 mg/0.5 mL pen injector injection Inject under the skin. 06/16/2020 Active Start: 01-17-2020 [id number] Medica tion dulaglutide 1.5 mg/0.5 mL subcutaneous [...] 0 Refills: 0 Ordered: 27-Nov-2020 DO Active empagliflozin 25 mg oral tablet (20 sources) Sodium-Glucose Cotransporter 2 Inhibitor Start: 07-04-2022 End: 04-19-2024 take 1 tablet by mouth in the morning JARDIANCE 25 mg tablet tablet Indications: Type 2 diabetes mellitus with hyperglycemia, with long-term current use of insulin (CMS-HCC) take 1 tablet by mouth in the morning 90 tablet 3 09/25/2023 Active take 1 tablet by dinora th every twenty-four hours Jardiance 10 MG 1 tablet Orally Once a day Active fenofibrate 145 mg oral tablet (20 [...] a day for 30 days September, Active 30 actuat fluticasone furoate 0.2 mg/actuat / vilanterol 0.025 mg/actuat dry powder inhaler (20 sources) Corticosteroid, beta2-Adrenergic Agonist Start: 06-18-2024 End: 06-18-2024 take 1 puff(s) by inhalation in the morning Fluticasone Furoate-Vilanterol (Breo Ellipta) 200-25 MCG/ACT aerosol powder Indications: Chronic obstructive pulmonary disease, unspecified COPD type (CMS/HCC) Inhale 1 puff in the morning. 1 each 11 06/18/2024 Active Start: 07-21-2023 take 1 puff(s) by in halation once daily Fluticasone Furoate-Vilanterol (Breo Ellipta) 200-25 mcg/dose blister with device Active 1 PUFF INHALATION Daily July 21, 2023 12:00am [employer] puff Inhalation Once a day; Note: Source Status: Taking; Provider: Harpal Wells Start: 06-25-2019 [id number] Medica tion fluticasone furoate 200 mcg-vilanterol 25 mcg/dose inhalation powder Breo Ellipta 200 mcg-25 mcg/dose powder for inhalation 200-25 mcg/dose 06/25/2019 Active (Outside) fluticasone/darren nterol (BREO ELLIPTA INHL) Inhale. Active [...] Daily July 21, 2023 12:00am Start: 11-11-2019 [id number] Medicat ion furosemide 20 mg tablet furosemide 20 mg tablet 20 mg 01/09/2021 Active (Outside) take 2 tablets by mo uth in the morning furosemide (Lasix) 20 MG tablet Take 2 tablets by mouth in the morning. Active Furosemide 40 MG TAKE 1 TABLET EVERY DAY Orally Once a day Active hydrALAZINE hydrochloride 25 mg oral tablet (14 sources) Arteriolar Vasodilator Start: 07-04-2022 take 2 [...] hyperglycemia, with long-term current use of insulin [place] INJECT UNDER THE SKIN UP TO 100 [...] hyperglycemia, with long-term current use of insulin ([facility] Uses up to 100 units daily 90 mL 3 07/16/2022 Active Start: 12-19-2019 [id number] Medica tion insulin aspart (U-100) 100 unit/mL (3 mL) subcutaneous pen Novolog Flexpen U-100 Insulin aspart 100 unit/mL (3 mL) subcutaneous 100 unit/mL (3 mL) 07/15/2021 Active (Outside) NovoLOG FlexPen 100 UNIT/ML 50 UNITS Subcutaneous TWICE A DAY Active 3 ml insulin degludec 200 unt/ml pen injector (20 sources) Insulin Analog Start: 07-04-2022 End: 11-10-2023 insulin degludec (TRESIBA FLEXTOUCH U-200) 200 unit/mL (3 mL) insulin pen Indications: Type 2 diabetes mellitus with hyperglycemia, with long-term current use of insulin ([facility] INJECT UP TO 150 UNITS UNDER THE SKIN EVERY DAY (DISCARD PEN 56 DAYS AFTER OPENING) 72 mL 3 11/10/2023 Active Start: 01-25-2020 [id number] Medica tion insulin degludec (U-200) 200 unit/mL [...] mL by inhalation four times daily Ipratropium [place] Active 0.625 ML INHALATION Four times daily July 21, 2023 12:00am Start: 09-04-2022 take 1 dose by inhal ation four times daily as needed ipratropium (Atrovent) 0.02 % nebulizer solution INHALE 1 VIAL IN NEBULIZER 4 TIMES DAILY NEEDED FOR 30 DAYS 09/04/2022 Active take 1 [IU] by inhal ation four times daily as needed Ipratropium [place] 0.02 % 1 unit dose Inhalation Four times a day DX J44.9 COPD for 30 days prn Active KERENDIA 10 mg tablet (14 sources) Start: 04-17-2022 take 1 tablet by mouth in the morning KERENDIA 10 mg tablet Take 1 tablet by mouth in the morning. 04/17/2022 Active Start: 04-17-2022 take 1 tablet by dinora th in the morning KERENDIA 10 mg tablet Take 1 tablet by mouth in the morning. 0 04/17/2022 Active Kerendia 20 MG tablet (20 sources) take 1 tablet by mouth in [...] oral capsule (20 sources) Opioid Agonist Start: 05-21-2024 End: 06-20-2024 take 1 capsule by mouth four times daily as needed for diarrhea loperamide (Imodium) 2 MG capsule Indications: Diarrhea, unspecified type Take 1 capsule (2 mg) by mouth 4 (four) times a day as needed for diarrhea 60 capsule 1 05/21/2024 06/20/2024 Active Start: 07-21-2023 take 1 tablet by dinora th four times daily as needed Loperamide Active [...] 60 capsule 1 01/16/2024 Active Start: 08-04-2021 [id number] Medicat ion loperamide 2 mg capsule loperamide [...] daily. 44 g 2 03/03/2023 04/02/2023 Active [place]-Pq-Vit L-Nbyzww-Qmqbzch (Preservision Areds 2 Plus Mv) 200 mcg-15 mcg- 5 mg-1 mg capsule (3 sources) Start: 07-21-2023 take 1 capsule by mouth twice daily Bg-Hkc-Mg-Vit R-Pvshqf-Zbfwqvx (Preservision Areds 2 Plus Mv) 200 mcg-15 [...] 1 mg/dose (4 mg/3 mL) pen injector (7 sources) Start: 10-27-2023 OZEMPIC 1 mg/dose (4 mg/3 mL) pen injector Indications: Type 2 diabetes mellitus with hyperglycemia, with long-term current use of insulin ([facility]) Inject 1 mg under the skin every 7 days. 9 mL 3 10/27/2023 Active Ozempic, 1 MG/DOSE, 4 MG/3ML solution pen-injector (20 sources) Start: 10-27-2023 inject 1 mg by subcutaneous injection every week Ozempic, 1 MG/DOSE, 4 MG/3ML solution pen-injector Inject 1 mg under the skin once a week 10/27/2023 Active primidone 250 mg oral tablet (1 source) Anti-epileptic Agent Start: 02-08-2021 [id number] Medication omeprazole 20 mg capsule,delayed release omeprazole [...] mg / trimethoprim 160 mg oral tablet (20 sources) Dihydrofolate Reductase Inhibitor Antibacterial, Sulfonamide Antimicrobial Start: 05-31-2024 take 1 tablet by mouth once in the morning, then take 1 tablet by mouth once at bedtime sulfamethoxazole-t rimethoprim (Bactrim DS) 800-160 MG per tablet Indications: Sore on scalp TAKE 1 TABLET BY MOUTH IN THE MORNING AND 1 TABLET BEFORE BEDTIME 14 tablet 05/31/2024 Active Start: 01-16-2024 End: 04-19-2024 take 1 tablet by mouth once in the morning, then take 1 tablet by mouth once at bedtime sulfamethoxazole-trimethoprim (Bactrim D S) 800-160 MG per tablet Indications: Sore on scalp Take 1 tablet by mouth in the morning and 1 tablet before bedtime. 14 tablet 1 04/19/2024 Active terbinafine hydrochloride 10 mg/ml topical cream (2 sources) Allylamine Antifungal Start: 04-13-2024 terbinafine (LamISIL ) 1 % cream Indications: Tinea cruris Apply [...] 180 tablet 3 06/05/2023 Active Start: 01-26-2020 [id number] Medicat ion topiramate 25 mg tablet topiramate 25 mg tablet 25 mg 08/15/2021 Active (Outside) take 2 tablets by mo uth twice daily topiramate (Topamax) 25 mg tablet [...] oral tablet (20 sources) Opioid Agonist Start: 06-18-2024 End: 08-02-2024 take 1 tablet by mouth every six hours for pain traMADol (Ultram) 50 MG tablet Indications: Primary osteoarthritis of both knees Take 1 tablet (50 mg) by mouth every 6 (six) hours if needed for severe pain 60 tablet 2 06/18/2024 08/02/2024 Active Start: 09-16-2020 [id number] Medicat ion tramadol 50 mg tablet tramadol [...] 100 capsule 3 04/21/2023 Active Start: 06-24-2021 [id number] Medicat ion verapamil ER 240 mg 24 hr capsule,extended release verapamil ER 240 mg 24 hr capsule,extended release 240 mg 06/24/2021 Active (Outside) verapamil HCl (V ERAPAMIL ORAL) Take 240 mg by mouth. Active take 1 capsule by [facility] every twenty-four hours Verapamil HCl ER 240 MG 1 capsule Orally Once a day Active vit A/vit C/vit E/zinc/coppe r (PRESERVISION AREDS ORAL) (14 sources) vit A/vit C/vit E/zinc/copper (PRESERVISION AREDS [...] 12 hrs for 10 day(s) September, Not-Taking dulaglutide (TRULICITY) 3 mg/0.5 mL pen injector (6 sources) Start: 07-28-2023 End: 08-21-2023 dulaglutide (TRULICITY) 3 mg/0.5 mL pen injector Indications: Type 2 diabetes mellitus with hyperglycemia, with long-term current use of insulin ([facility]) inject 1 syringe subcutaneously once a week 4 mL 07/28/2023 08/21/2023 Discontinued Start: 07-28-2023 dulaglutide (T RULICITY) 3 mg/0.5 mL pen injector Indications: Type 2 diabetes mellitus with hyperglycemia, with long-term current use of insulin ([facility]) inject 1 syringe subcutaneously once a week 4 mL 0 07/28/2023 Active Start: 08-19-2022 End: 07-28-2023 dulaglutide (TRULICITY) 3 mg /0.5 mL pen injector Indications: Type 2 diabetes mellitus with hyperglycemia, with long-term current use of insulin (CMS-HCC) 3mg weekly 2 mL 11 08/19/2022 07/28/2023 Discontinued Start: 08-19-2022 dulaglutide (T RULICITY) 3 mg/0.5 mL pen injector Indications: Type 2 diabetes mellitus with hyperglycemia, with long-term current use of insulin ([facility]) 3mg weekly 2 mL 11 08/19/2022 Active PreserVision AREDS 2 CAPS (5 sources) PreserVision ARE DS 2 CAPS Quantity: 0 Refills: 0 Ordered: 27-Nov-2020 DO Active TRULICITY 3 mg/0.5 mL pen injector (5 sources) Start: 10-16-2023 End: 10-27-2023 TRULICITY 3 mg/0.5 mL pen injector Indications: Type 2 diabetes mellitus with hyperglycemia, with long-term current use of insulin ([facility]) inject 1 syringe subcutaneously once a week 8 mL 10/16/2023 10/27/2023 Discontinued Start: 10-16-2023 TRULICITY 3 mg /0.5 mL pen injector Indications: Type 2 diabetes mellitus with hyperglycemia, with long-term current use of insulin (CMS-HCC) inject 1 syringe subcutaneously once a week 8 mL 10/16/2023 Active Start: 08-21-2023 End: 10-16-2023 TRULICITY 3 mg/0.5 mL pen in jector Indications: Type 2 diabetes mellitus with hyperglycemia, with long-term current use of insulin ([facility]) inject 1 syringe subcutaneously once a week 4 mL 08/21/2023 10/16/2023 Discontinued Start: 08-21-2023 TRULICITY 3 mg /0.5 mL pen injector Indications: Type 2 diabetes mellitus with hyperglycemia, with long-term current use of insulin ([facility]) inject 1 syringe subcutaneously once a week 4 mL 08/21/2023 Active Problems Active Problems Problem Classification Problem Date Documented Date Episodic/Chronic Acute and unspecified renal failure (18 sources) Acute renal failure syndrome; Translations: [Acute kidney failure, unspecified] Episodic Administrative/social admission (2 sources) Patient encounter status; Translations: [Other specified counseling] 04-19-2024 Episodic Cataract (20 sources) Bilateral age-related nuclear cataracts; Translations: [Age-related [...] tissue] 09-03-2023 Episodic Other connective tissue disease (5 sources) Artificial knee joint present; Translations: [Presence of artificial knee joint, bilateral] Onset: 06-18-2024 06-18-2024 Chronic Other connective tissue disease (4 sources) Trochanteric bursitis, right hip; Translations: [TROCHANTERIC BURSITIS RIGHT HIP] Onset: 08-03-2021 Episodic Other connective tissue disease (7 sources) Pain in left foot; Translations: [Pain in left foot] 02-24-2024 Episodic Other diseases of kidney and ureters (18 sources) Hydronephrosis; Translations: [Unspecified hydronephrosis] Episodic Other diseases of veins and lymphatics (20 sources) Lymphedema; Translations: [Lymphedema, not elsewhere classified] Onset: 12-13-2022 12-13-2022 Chronic Other eye disorders (20 sources) Vitreous hemorrhage; Translations: [Vitreous hemorrhage, unspecified eye] Onset: 03-06-2012 01-16-2024 Chronic Other eye disorders (20 sources) Bilateral vitreous degeneration of eyes; Translations: [Vitreous degeneration, bilateral] Onset: 12-13-2022 12-13-2022 Chronic Other hereditary and degenerative nervous system conditions (7 sources) Hereditary essential tremor; Translations: [Essential and other specified forms of tremor] Onset: 02-27-2023 02-27-2023 Chronic Other hereditary and degenerative nervous system conditions (20 sources) Essential tremor; Translations: [Essential tremor] Onset: 12-13-2022 12-13-2022 Chronic Other lower respiratory disease (5 sources) Dyspnea, unspecified Onset: 04-02-2021 Resolved: 10-02-2021 Episodic Other non-traumatic joint disorders (2 sources) Pain in right knee; Translations: [Pain in joint, lower leg] 01-16-2024 Episodic Other nutritional; endocrine; and metabolic disorders (20 sources) Obesity caused by energy imbalance; Translations: [Morbid (severe) obesity due to excess calories] Onset: 02-26-2023 01-16-2024 Chronic Other nutritional; endocrine; and metabolic disorders (20 sources) Body mass index 40+ - severely [...] in skin texture] Onset: 09-03-2023 Episodic Other upper respiratory disease (6 sources) Rhinitis; Translations: [Chronic rhinitis] 09-01-2023 Chronic Other upper respiratory disease (2 sources) Chronic rhinitis Chronic Pulmonary heart disease (2 sources) Pulmonary hypertension; Translations: [Pulmonary hypertension, unspecified] 06-18-2024 Chronic Residual codes; unclassified (20 sources) Obstructive [...] Retinal detachments; defects; vascular occlusion; and retinopathy (20 sources) Nonexudative age-related macular degeneration; Translations: [Nonexudative age-related macular degeneration, bilateral, early dry stage] Onset: 12-13-2022 12-13-2022 Chronic Septicemia (except in labor) (2 sources) Sepsis due to Actinomyces; Translations: [Actinomycotic sepsis] 06-18-2024 Episodic Past or Other Problems Problem Classification Problem [...] skin] Onset: 09-13-2020 03-03-2023 Episodic Mood disorders (14 sources) Mood disorders Onset: 02-03-2020 02-03-2020 Mycoses (20 sources) Onychomycosis; Translations: [Tinea unguium] Onset: 10-24-2022 10-24-2022 Episodic Neoplasms of unspecified nature or uncertain behavior (6 sources) Neoplasm of uncertain behavior of skin; Translations: [Neoplasm of uncertain behavior of skin] Onset: 07-09-2022 02-27-2023 Episodic Other aftercare (1 source) 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; Translations: [FCI (current) use of insulin] Onset: 10-22-2022 Episodic [...] Onset: 03-03-2023 Episodic Other connective tissue disease (20 sources) Pain in both feet; Translations: [Pain in right foot] Onset: 10-24-2022 10-24-2022 Episodic Other connective tissue disease (20 sources) Muscle pain; Translations: [Myalgia, unspecified site] Onset: 06-10-2023 06-10-2023 Episodic Other diseases of veins and lymphatics (20 sources) Vascular insufficiency; Translations: [Venous insufficiency (chronic) (peripheral)] Onset: 10-24-2022 10-24-2022 Episodic Other gastrointestinal disorders (20 sources) Diarrhea; Translations: [Diarrhea, unspecified] Onset: 01-16-2024 [...] 02-27-2023 Episodic Other skin disorders (20 sources) Ingrowing toenail; Translations: [Ingrowing nail] Onset: 10-24-2022 02-24-2024 Episodic Other skin disorders (20 sources) Lesion of scalp; Translations: [Disorder of the skin and subcutaneous tissue, unspecified] Onset: 01-16-2024 01-16-2024 Episodic Other upper respiratory disease (20 sources) Bronchospasm; Translations: [Acute bronchospasm] Onset: 12-13-2022 12-13-2022 Episodic Pulmonary heart disease (20 sources) Pulmonary embolism; Translations: [Other pulmonary embolism and infarction] Onset: 02-27-2023 Resolved: 01-16-2024 02-27-2023 Episodic Residual codes; unclassified (7 sources) Localized edema; Translations: [Localized edema] Onset: 04-18-2021 Resolved: 10-23-2021 Episodic Skin and subcutaneous tissue infections (3 sources) Furuncle; Translations: [Furuncle, unspecified] Onset: 03-03-2023 03-03-2023 Episodic Unclassified (14 sources) Onset: 02-03-2020 02-03-2020 Results Test Name Value Interpretation Reference Range Facility ALL MAGNESIUMon 06-18-2024 Magnesium [Mass/Vol] 1.9 mg/dL 1.8 - 2 .4 mg/dL [facility] CMP (CMP) (FOR REMOTE FH C USE)on 06-18-2024 Albumin [Mass/Vol] 3.3 g/dL Low 3.4 - 5.0 g/dL [facility] ALBUMIN GLOBULIN RATIO 0.[address] [facility] ALP [Catalytic activity/Vol] 49 U/L 46 - 116 U/L [facility] ALT [Catalytic activity/Vol] 18 U/L 14 - 59 U/L [facility] Anion gap [Moles/Vol] 12.6 mmol/L NO [facility] AST [Catalytic activity/Vol] 18 U/L 15 - 37 U/L [facility] Bilirubin [Mass/Vol] 0.4 mg/dL 0.2 - 1 .0 mg/dL [facility] Calcium [Mass/Vol] 9.1 mg/dL 8.5 - 10. 1 mg/dL [facility] Chloride [Moles/Vol] 102 mmol/L 98 - 10 7 mmol/L [facility] CO2 [Moles/Vol] 26.6 mmol/L 21.0 - 32.0 mmol/L [facility] Creatinine [Mass/Vol] 1.36 mg/dL High 0.55 - 1.02 mg/dL [facility] GFR/1.73 sq M.predicted CKD-EPI (S/P/Bld) [Vol rate/Area] 46 Low >=60 mL/min/1.73 m 2 [facility] Globulin (S) [Mass/Vol] 3.8 g/dL [facility] Glucose [Mass/Vol] 172 mg/dL High 74 - 106 mg/dL [facility] Interpretation and review of laboratory results Abnormal [facility] Potassium [Moles/Vol] 4.2 mmol/L 3.5 - 5.1 mmol/L [facility] Protein [Mass/Vol] 7.1 g/dL 6.4 - 8.2 g/dL [facility] Sodium [Moles/Vol] 137 mmol/L 136 - 145 mmol/L [facility] TBH EGFR-NON AF CYMRAES 38 Low >=60 mL/min/1.73 m 2 [facility] Urea nitrogen [Mass/Vol] 29 mg/dL High 7.0 - 18.0 mg/dL [facility] Urea nitrogen/Creatinine [Mass ratio] 21.3 mg/mg [facility] No Panel Informationon 06-18 [facility] Urinalysis macro (dipstick) panel (U)on 06-18-2024 Bilirubin, UA Negative Negative - 4(70) +++ mg/dL [facility] Blood, UA Positive Negative - 50 Evens/mcL [facility] Glucose, UA Negative Negative - 1999(110) ++++ mg/dL [facility] Ketones, UA Negative Negative - 160(16) ++++ mg/dL [facility] Leukocytes, UA Trace Negative - 500+++ Therese/mcL [facility] Nitrite, UA Negative Negative - Positive [facility] pH, UA 7 5 - 9 [facility] Protein, UA Trace Negative - 1999(20) ++++ mg/dL [facility] Spec Grav, UA 1.015 1 - 1.03 [facility] Urobilinogen, UA 0.2 0.2 - 12 mg/dL [facility] Hemogram CBC Without Diffon 04-12-2024 Erythrocyte distribution width (RBC) [Ratio] 15.1 % Normal 11.9-15.3 [facility] Comment on above: Performed By: #### R ENAL, MG, [id number], CBCNO, URIC, PTH #### [address] Hematocrit (Bld) [Volume fraction] 45.9 % Normal 34.0-46.4 [facility] Comment on above: Performed By: #### R ENAL, MG, [id number], CBCNO, URIC, PTH #### [address] Hemoglobin (Bld) [Mass/Vol] 15.3 g/dL Normal 11.8-15.4 [facility] Comment on above: Performed By: #### R ENAL, MG, [id number], CBCNO, URIC, PTH #### [address] MCH (RBC) [Entitic mass] 29.1 pg Normal 24.7-34.3 [facility] Comment on above: Performed By: #### R ENAL, MG, [id number], CBCNO, URIC, PTH #### [address] MCV (RBC) [Entitic vol] 86.9 fL Normal 80-100 [facility] Comment on above: Performed By: #### R ENAL, MG, [id number], CBCNO, URIC, PTH #### [address] Mean Corpuscular HGB Conc 33.4 g/dL Normal 32.0-35.0 [facility] Comment on above: Performed By: #### R ENAL, MG, [id number], CBCNO, URIC, PTH #### [address] Platelet mean volume (Bld) [Entitic vol] 8.6 fL Normal 6.3-10.7 [facility] Comment on above: Result Comment: PERF ORMED BY: [place] [address] PATHOLOGIST SALES AND SERVICE CONSULTANT OLIVERIO ARTHUR M.D. Performed By: #### R ENAL, MG, [id number], CBCNO, URIC, PTH #### [address] Platelets (Bld) [#/Vol] 336 10*3/uL Normal 150-450 [facility] Comment on above: Performed By: #### R ENAL, MG, [id number], CBCNO, URIC, PTH #### [address] RBC (Bld) [#/Vol] 5.28 10*6/uL High 3.60-5.00 [facility] Comment on above: Performed By: #### R ENAL, MG, [id number], CBCNO, URIC, PTH #### [address] WBC (Bld) [#/Vol] 7.6 10*3/uL Normal 3.8-11.6 [facility] Comment on above: Performed By: #### R ENAL, MG, [id number], CBCNO, URIC, PTH #### [address] Laboratory - Chemistry and C hemistry - challengeon 04-12-2024 Albumin [Mass/Vol] 3.8 g/dL [facility] Creatinine (U) [Mass/Vol] 1.58 mg/dL [facility] GFR/1.73 sq M.predicted among non-blacks MDRD (S/P/Bld) [Vol rate/Area] 34.5 mL/min/{1.73_m2} [facility] Magnesiumon 04-12-2024 Magnesium [Mass/Vol] 2.2 mg/dL Normal 1.9-2.7 [facility] Comment on above: Performed By: #### R ENAL, MG, [id number], CBCNO, URIC, PTH #### [address] No Panel Informationon 04-12 [facility] Parathyroid Hormone Intacton 04-12-2024 Parathyroid Hormone Intact 15.0 pg/mL Normal [facility] Comment on above: Result Comment: PERF ORMED BY: [place] [address] PATHOLOGIST SALES AND SERVICE CONSULTANT OLIVERIO ARTHUR M.D. Performed By: #### R ENAL, MG, [id number], CBCNO, URIC, PTH #### [address] Renal Function Panelon 04-12 Albumin [Mass/Vol] 3.8 g/dL Normal 3.5-5.7 [facility] Comment on above: Performed By: #### R ENAL, MG, [id number], CBCNO, URIC, PTH #### [address] Anion gap [Moles/Vol] 13.0 mmol/L Normal 6.0-15.0 [facility] Comment on above: Performed By: #### R ENAL, MG, [id number], CBCNO, URIC, PTH #### [address] Calcium [Mass/Vol] 9.5 mg/dL Normal 8.6-10.3 [facility] Comment on above: Performed By: #### R ENAL, MG, [id number], CBCNO, URIC, PTH #### [facility] [address] Chloride [Moles/Vol] 103 mmol/L Normal 98-107 [facility] Comment on above: Performed By: #### R ENAL, MG, [id number], CBCNO, URIC, PTH #### [address] CO2 [Moles/Vol] 24.2 mmol/L Normal 21.0-31.0 [facility] Comment on above: Performed By: #### R ENAL, MG, [id number], CBCNO, URIC, PTH #### [address] Creatinine [Mass/Vol] 1.58 mg/dL High 0.60-1.20 [facility] Comment on above: Performed By: #### R ENAL, MG, [id number], CBCNO, URIC, PTH #### [address] Estimated GFR 34.572 mL/Min Normal [facility] Comment on above: Performed By: #### R ENAL, MG, [id number], CBCNO, URIC, PTH #### [address] Glucose [Mass/Vol] 232 mg/dL High 70-100 [facility] Comment on above: Result Comment: [place] Glucose Reference Range is dependent on time and content of last meal. Glucose of more than 200 mg/dL in a nonstressed, ambulatory subject supports the diagnosis of Diabetes Mellitus. ADA recommended reference range Performed By: #### R ENAL, MG, [id number], CBCNO, URIC, PTH #### [address] Phosphate [Mass/Vol] 4.4 mg/dL Normal 2.5-4.5 [facility] Comment on above: Performed By: #### R ENAL, MG, [id number], CBCNO, URIC, PTH #### [address] Potassium [Moles/Vol] 4.2 mmol/L Normal 3.5-5.1 [facility] Comment on above: Performed By: #### R ENAL, MG, [id number], CBCNO, URIC, PTH #### [address] Sodium [Moles/Vol] 136 mmol/L Normal 136-145 [facility] Comment on above: Performed By: #### R ENAL, MG, [id number], CBCNO, URIC, PTH #### [address] Urea nitrogen [Mass/Vol] 33 mg/dL High 7-25 [facility] Comment on above: Performed By: #### R ENAL, MG, [id number], CBCNO, URIC, PTH #### [address] Uric Acidon 04-12-2024 Urate [Mass/Vol] 5.2 mg/dL Normal 2.3-6.6 [facility] Comment on above: Performed By: #### R ENAL, MG, [id number], CBCNO, URIC, PTH #### [address] Vitamin D 25 Hydroxy Totalon 04-12-2024 Vitamin D 25 Hydroxy Total 47.3 ng/mL Normal 30-100 [facility] Comment on above: Result Comment: YAZMIN MIN D STATUS 25(OH)VITAMIN D RANGE (ng/mL) Deficient <20 Insufficient 20 to <30 Sufficient 30 to 100 Reference: Brittni MF,Mitzy NC, Brandt CONNER, et al. Evaluation,treatment, and prevention of vitamin D deficiency; an Endocrine Society clinical practice guideline. JCEM. 2010; 96(7):1911-30. PERFORMED BY: [place] [address] PATHOLOGIST SALES AND SERVICE CONSULTANT OLIVERIO ARTHUR M.D. Performed By: #### R ENAL, MG, [id number], CBCNO, URIC, PTH #### [facility] [address] POCT Hemoglobin A1con 2023 HbA1c (Bld) [Mass fraction] 7.6 % Abnormal 4 - 7 % [facility] Interpretation and review of laboratory results Abnormal [facility] POCT Hemoglobin A1con 2023 ADA Target < 8 Yes [facility] HbA1c (Bld) [Mass fraction] 7.5 g/dL Abnormal 4 - 7 g/dL [facility] Interpretation and review of laboratory results Abnormal [facility] Albumin [Mass/volume] in Ser um or Plasma by Bromocresol green (BCG) dye binding methoOrdered By: Dilan Nguyễn on 11-10-2023 Albumin BCG dye [Mass/Vol] 4.0 g/dL 3.5-5.7 [facility] Calcium [Mass/volume] in Ser um or PlasmaOrdered By: Dilan Nguyễn on 11-10-2023 Calcium [Mass/Vol] 9.5 mg/dL Normal 8.6-10.3 [facility] Comment on above: Performed By: #### R ENAL, MG, [id number], CBCNO, URIC, PTH #### [facility] [address] Carbon dioxide, total [Moles /volume] in Serum or PlasmaOrdered By: Dilan Nguyễn on 11-10-2023 CO2 [Moles/Vol] 27.1 mmol/L Normal 21.0-31.0 [facility] Comment on above: Performed By: #### R ENAL, MG, [id number], CBCNO, URIC, PTH #### [facility] [address] [place] [address] [place] Chloride [Moles/volume] in S hayder or PlasmaOrdered By: Dilan Nguyễn on 11-10-2023 Chloride [Moles/Vol] 102 mmol/L Normal 98-107 [facility] Comment on above: Performed By: #### R ENAL, MG, [id number], CBCNO, URIC, PTH #### [facility] [address] Creatinine [Mass/volume] in Serum or PlasmaOrdered By: Dilan Nguyễn on 11-10-2023 Creatinine [Mass/Vol] 2.10 mg/dL High 0.60-1.20 [facility] Comment on above: Performed By: #### R ENAL, MG, [id number], CBCNO, URIC, PTH #### [facility] [address] Erythrocyte distribution wid th [Ratio] by Automated countOrdered By: Dilan Nguyễn on 11-10-2023 Erythrocyte distribution width (RBC) [Ratio] 14.8 % Normal 11.9-15.3 [facility] Comment on above: Performed By: #### R ENAL, MG, [id number], CBCNO, URIC, PTH #### [address] Erythrocytes [#/volume] in B lood by Automated countOrdered By: Dilan Nguyễn on 11-10-2023 RBC (Bld) [#/Vol] 5.05 10*6/uL High 3.60-5.00 [facility] Comment on above: Performed By: #### R ENAL, MG, [id number], CBCNO, URIC, PTH #### [address] Glucose [Mass/volume] in Ser um or PlasmaOrdered By: Dilan Nguyễn on 11-10-2023 Glucose [Mass/Vol] 239 mg/dL High 70-100 [facility] Comment on above: ADA recommended refe rence rangeRandom Glucose Reference Range is dependent on time and content of last meal. Glucose of more than 200 mg/dL in a nonstressed, ambulatory subject supports the diagnosis of Diabetes Mellitus. Result Comment: [place] [facility] Glucose Reference Range is dependent on time and content of last meal. Glucose of more than 200 mg/dL in a nonstressed, ambulatory subject supports the diagnosis of Diabetes Mellitus. ADA recommended reference range Performed By: #### R ENAL, MG, [id number], CBCNO, URIC, PTH #### [facility] [address] Hematocrit [Volume Fraction] of Blood by Automated countOrdered By: Dilan Nguyễn on 11-10-2023 Hematocrit (Bld) [Volume fraction] 45.1 % Normal 34.0-46.4 [facility] Comment on above: Performed By: #### R ENAL, MG, [id number], CBCNO, URIC, PTH #### [address] Hemoglobin [Mass/volume] in BloodOrdered By: Dilan Nguyễn on 11-10-2023 Hemoglobin (Bld) [Mass/Vol] 15.0 g/dL Normal 11.8-15.4 [facility] Comment on above: Performed By: #### R ENAL, MG, [id number], CBCNO, URIC, PTH #### [address] Hemogram CBC Without Diffon 11-10-2023 Mean Corpuscular HGB Conc 33.2 g/dL Normal 32.0-35.0 [facility] Comment on above: Performed By: #### R ENAL, MG, [id number], CBCNO, URIC, PTH #### [address] WBC (Bld) [#/Vol] 9.1 10*3/uL Normal 3.8-11.6 [facility] Comment on above: Performed By: #### R ENAL, MG, [id number], CBCNO, URIC, PTH #### [address] Leukocytes [#/volume] correc cristine for nucleated erythrocytes in Blood by Automated counOrdered By: Dilan Nguyễn on 11-10-2023 WBC corrected for nucl RBC Auto (Bld) [#/Vol] 9.1 10*3/uL 3.8-11.6 [facility] MCH [Entitic mass] by Automa cristine countOrdered By: Dilan Nguyễn on 11-10-2023 MCH (RBC) [Entitic mass] 29.7 pg Normal 24.7-34.3 [facility] Comment on above: Performed By: #### R ENAL, MG, [id number], CBCNO, URIC, PTH #### [address] MCHC Auto (RBC) [Mass/Vol]Or dered By: Dilan Ngyuễn on 11-10-2023 MCHC (RBC) [Mass/Vol] 33.2 g/dL 32.0-35.0 [facility] MCV [Entitic volume] by Auto mated countOrdered By: Dilan Nguyễn on 11-10-2023 MCV (RBC) [Entitic vol] 89.4 fL Normal 80-100 [facility] Comment on above: Performed By: #### R ENAL, MG, [id number], CBCNO, URIC, PTH #### [address] Magnesium [Mass/volume] in S hayder or PlasmaOrdered By: Dilan Nguyễn on 11-10-2023 Magnesium [Mass/Vol] 2.2 mg/dL Normal 1.9-2.7 [facility] Comment on above: Performed By: #### R ENAL, MG, [id number], CBCNO, URIC, PTH #### [address] No Panel InformationOrdered By: Dilan Nguyễn on 11-10-2023 Estimated GFR (CKD-EPI) 24.573 mL/Min [facility] Creatinine Clearance (Chem N/A [facility] Phosphate [Mass/volume] in S hayder or PlasmaOrdered By: Dilan Nguyễn on 11-10-2023 Phosphate [Mass/Vol] 4.9 mg/dL High 2.5-4.5 [facility] Comment on above: Performed By: #### R ENAL, MG, [id number], CBCNO, URIC, PTH #### [address] Platelet mean volume [Entiti c volume] in Blood by Automated countOrdered By: Dilan Nguyễn on 11-10-2023 Platelet mean volume (Bld) [Entitic vol] 8.5 fL Normal 6.3-10.7 [facility] Comment on above: Result Comment: PERF ORMED BY: [place] [address] PATHOLOGIST SALES AND SERVICE CONSULTANT JACQUELINE ZAVALA M.D. Performed By: #### R ENAL, MG, [id number], CBCNO, URIC, PTH #### [address] Platelets [#/volume] in Bloo d by Automated countOrdered By: Dilan Nguyễn on 11-10-2023 Platelets (Bld) [#/Vol] 350 10*3/uL Normal 150-450 [facility] Comment on above: Performed By: #### R ENAL, MG, [id number], CBCNO, URIC, PTH #### [address] Potassium [Moles/volume] in Serum or PlasmaOrdered By: Dilan Nguyễn on 11-10-2023 Potassium [Moles/Vol] 4.0 mmol/L Normal 3.5-5.1 [facility] Comment on above: Performed By: #### R ENAL, MG, [id number], CBCNO, URIC, PTH #### [address] Renal Function Panelon 11-09 Albumin [Mass/Vol] 4.0 g/dL Normal 3.5-5.7 [facility] Comment on above: Performed By: #### R ENAL, MG, [id number], CBCNO, URIC, PTH #### [place] [address] [place] GFR/1.73 sq M.predicted MDRD (S/P/Bld) [Vol rate/Area] 24.573 mL/min/{1.73_m2} Normal [facility] Comment on above: Performed By: #### R ENAL, MG, [id number], CBCNO, URIC, PTH #### [facility] [address] Serum or plasma anion gap de terminationOrdered By: Dilan Sergio on 11-10-2023 Anion gap [Moles/Vol] 11.9 mmol/L Normal 6.0-15.0 [facility] Comment on above: Performed By: #### R ENAL, MG, [id number], CBCNO, URIC, PTH #### [facility] [address] Sodium [Moles/volume] in Ser um or PlasmaOrdered By: Dilan Sergio on 11-10-2023 Sodium [Moles/Vol] 137 mmol/L Normal 136-145 [facility] Comment on above: Performed By: #### R ENAL, MG, [id number], CBCNO, URIC, PTH #### [facility] [address] [place] [address] Urate [Mass/volume] in Serum or PlasmaOrdered By: Dilan Sergio on 11-10-2023 Urate [Mass/Vol] 4.9 mg/dL Normal 2.3-6.6 [facility] Comment on above: Performed By: #### R ENAL, MG, [id number], CBCNO, URIC, PTH #### [facility] [address] [place] [address] Urea nitrogen [Mass/volume] in Serum or PlasmaOrdered By: Dilan Sergio on 11-10-2023 Urea nitrogen [Mass/Vol] 46 mg/dL High 7-25 [facility] Comment on above: Performed By: #### R ENAL, MG, [id number], CBCNO, URIC, PTH #### [facility] [address] [place] [address] Vitamin D 25 Hydroxy Totalon 11-10-2023 Vitamin D 25 Hydroxy Total 50.4 ng/mL Normal 30-100 [facility] Comment on above: Result Comment: YAZMIN MIN D STATUS 25(OH)VITAMIN D RANGE (ng/mL) Deficient <20 Insufficient 20 to <30 Sufficient 30 to 100 Reference: Mitzy Gutiérrez, Brandt CONNER, et al. Evaluation,treatment, and prevention of vitamin D deficiency; an Endocrine Society clinical practice guideline. JCEM. 2010; 96(7):1911-. PERFORMED BY: [facility] [address] [place] [address] PATHOLOGIST SALES AND SERVICE CONSULTANT JACQUELINE ZAVALA M.D. Performed By: #### R ENAL, MG, [id number], CBCNO, URIC, PTH #### [facility] [address] [place] [id number] [facility] Vitamin D+Metabolites [Mass/ volume] in Serum or PlasmaOrdered By: Dilan Nguyễn on 11-10-2023 Vitamin D+Metabolites [Mass/Vol] 50.4 ng/mL 30-100 [facility] Comment on above: VITAMIN D STATUS 25( [place])VITAMIN D RANGE (ng/mL) Deficient <20 Insufficient 20 to <30Sufficient 30 to 100Reference: Mitzy Gutiérrez, Brandt CONNER, et al. Evaluation,treatment, and prevention of vitamin D deficiency; an Endocrine Society clinical practice guideline. JCEM. 2010; 96(7):1911-30. POCT Hemoglobin A1con 2023 ADA Target < 8 Yes [facility] HbA1c (Bld) [Mass fraction] 7.7 g/dL Abnormal 4 - 7 g/dL [facility] Interpretation and review of laboratory results Abnormal [facility] Microalbumin/Creatinine rati o panel (U)on 08-05-2023 Albumin DL <= 20 mg/L (U) [Mass/Vol] 4 mg/dL [facility] Albumin/Creatinine DL <= 1.0 mg/L (U) [Ratio] 1.2 [facility] Creatinine (U) [Mass/Vol] 65 [facility] Albumin [Mass/volume] in Ser um or Plasma by Bromocresol green (BCG) dye binding methoOrdered By: Dilan Nguyễn on 07-21-2023 Albumin BCG dye [Mass/Vol] 4.3 g/dL 3.5-5.7 [facility] Calcium [Mass/volume] in Ser um or PlasmaOrdered By: Dilan Nguyễn on 07-21-2023 Calcium [Mass/Vol] 9.8 mg/dL Normal 8.6-10.3 [facility] Comment on above: Performed By: #### R ENAL, MG, [id number], CBCNO, URIC, PTH #### [facility] [address] Carbon dioxide, total [Moles /volume] in Serum or PlasmaOrdered By: Dilan Nguyễn on 07-21-2023 CO2 [Moles/Vol] 29.2 mmol/L Normal 21.0-31.0 [facility] Comment on above: Performed By: #### R ENAL, MG, [id number], CBCNO, URIC, PTH #### [facility] [address] Chloride [Moles/volume] in S hayder or PlasmaOrdered By: Dilan Nguyễn on 07-21-2023 Chloride [Moles/Vol] 103 mmol/L Normal 98-107 [facility] Comment on above: Performed By: #### R ENAL, MG, [id number], CBCNO, URIC, PTH #### [facility] [address] Creatinine [Mass/volume] in Serum or PlasmaOrdered By: Dilan Nguyễn on 07-21-2023 Creatinine [Mass/Vol] 1.86 mg/dL High 0.60-1.20 [facility] Comment on above: Performed By: #### R ENAL, MG, [id number], CBCNO, URIC, PTH #### [facility] [address] [place] [address] [place] Glucose [Mass/volume] in Ser um or PlasmaOrdered By: Dilan Nguyễn on 07-21-2023 Glucose [Mass/Vol] 208 mg/dL High 70-100 [facility] Comment on above: ADA recommended refe rence rangeRandom Glucose Reference Range is dependent on time and content of last meal. Glucose of more than 200 mg/dL in a nonstressed, ambulatory subject supports the diagnosis of Diabetes Mellitus. Result Comment: [facility] Glucose Reference Range is dependent on time and content of last meal. Glucose of more than 200 mg/dL in a nonstressed, ambulatory subject supports the diagnosis of Diabetes Mellitus. ADA recommended reference range Performed By: #### R ENAL, MG, [id number], CBCNO, URIC, PTH #### [facility] [address] No Panel InformationOrdered By: Dilan Nguyễn on 07-21-2023 Estimated GFR (CKD-EPI) 28.425 mL/Min [facility] Creatinine Clearance (Chem N/A [facility] Phosphate [Mass/volume] in S hayder or PlasmaOrdered By: Dilan Nguyễn on 07-21-2023 Phosphate [Mass/Vol] 4.9 mg/dL High 2.5-4.5 [facility] Comment on above: Performed By: #### R ENAL, MG, [id number], CBCNO, URIC, PTH #### [address] Potassium [Moles/volume] in Serum or PlasmaOrdered By: Dilan Nguyễn on 07-21-2023 Potassium [Moles/Vol] 4.5 mmol/L Normal 3.5-5.1 [facility] Comment on above: Performed By: #### R ENAL, MG, [id number], CBCNO, URIC, PTH #### [address] Renal Function Panelon 07-20 Albumin [Mass/Vol] 4.3 g/dL Normal 3.5-5.7 [facility] Comment on above: Result Comment: PERF ORMED BY: [place] [address] PATHOLOGIST SALES AND SERVICE CONSULTANT JACQUELINE ZAVALA M.D. Performed By: #### R ENAL, MG, [id number], CBCNO, URIC, PTH #### [address] GFR/1.73 sq M.predicted MDRD (S/P/Bld) [Vol rate/Area] 28.425 mL/min/{1.73_m2} Normal [facility] Comment on above: Performed By: #### R ENAL, MG, [id number], CBCNO, URIC, PTH #### [facility] [address] Serum or plasma anion gap de terminationOrdered By: Dilan Nguyễn on 07-21-2023 Anion gap [Moles/Vol] 11.3 mmol/L Normal 6.0-15.0 [facility] Comment on above: Performed By: #### R ENAL, MG, [id number], CBCNO, URIC, PTH #### [facility] [address] Sodium [Moles/volume] in Ser um or PlasmaOrdered By: Dilan Nguyễn on 07-21-2023 Sodium [Moles/Vol] 139 mmol/L Normal 136-145 [facility] Comment on above: Performed By: #### R ENAL, MG, [id number], CBCNO, URIC, PTH #### [facility] [address] [place] [address] Urea nitrogen [Mass/volume] in Serum or PlasmaOrdered By: Dilan Nguyễn on 07-21-2023 Urea nitrogen [Mass/Vol] 34 mg/dL High 7-25 [facility] Comment on above: Performed By: #### R ENAL, MG, [id number], CBCNO, URIC, PTH #### [facility] [address] [place] [address] [place] Albumin [Mass/volume] in Ser um or Plasma by Bromocresol green (BCG) dye binding methoOrdered By: Dilan Nguyễn on 07-18-2023 Albumin BCG dye [Mass/Vol] 4.1 g/dL 3.5-5.7 [facility] Automated erythrocytes count in urine sediment (number/area)Ordered By: Dilan Nguyễn on 07-18-2023 RBC Auto (Urine sed) [#/Area] 10-19 [HPF] 0-4 [facility] Automated leukocytes count i n urine sediment (number/area)Ordered By: Dilan Nguyễn on 07-18-2023 WBC Auto (Urine sed) [#/Area] 10-19 [HPF] 0-4 [facility] Automated urine color determ inationOrdered By: Dilan Nguyễn on 07-18-2023 Color (U) Yellow Normal Yellow [facility] Comment on above: Order Comment: Reaso n for Exam Hypertensive chronic kidney disease with stage 1 through sta Name Collection Type:: Clean-Voided Midstream Performed By: #### R ENAL, MG, [id number], CBCNO, URIC, PTH #### [facility] [address] Bilirubin Test strip Ql (U)O rdered By: Dilan Nguyễn on 07-18-2023 Bilirubin Ql (U) Negative Negative [facility] Calcium [Mass/volume] in Ser um or PlasmaOrdered By: Dilan Nguyễn on 07-18-2023 Calcium [Mass/Vol] 9.2 mg/dL Normal 8.6-10.3 [facility] Comment on above: Order Comment: Reaso n for Exam Hypertensive chronic kidney disease with stage 1 through sta Performed By: #### M G, [id number], URIC, RENAL #### [facility] [address] [place] [address] [place] Carbon dioxide, total [Moles /volume] in Serum or PlasmaOrdered By: Dilan Nguyễn on 07-18-2023 CO2 [Moles/Vol] 27.0 mmol/L Normal 21.0-31.0 [facility] Comment on above: Order Comment: Reaso n for Exam Hypertensive chronic kidney disease with stage 1 through sta Performed By: #### M G, [id number], URIC, RENAL #### [facility] [address] [place] [id number] [place] Chloride [Moles/volume] in S hayder or PlasmaOrdered By: Dilan Nguyễn on 07-18-2023 Chloride [Moles/Vol] 101 mmol/L Normal 98-107 [facility] Comment on above: Order Comment: Reaso n for Exam Hypertensive chronic kidney disease with stage 1 through sta Performed By: #### M G, [id number], URIC, RENAL #### [facility] [address] [id number] [facility] Creatinine [Mass/volume] in Serum or PlasmaOrdered By: Dilan Nguyễn on 07-18-2023 Creatinine [Mass/Vol] 2.96 mg/dL High 0.60-1.20 [facility] Comment on above: Order Comment: Reaso n for Exam Hypertensive chronic kidney disease with stage 1 through sta Performed By: #### M G, [id number], URIC, RENAL #### [facility] [address] [id number] [facility] Creatinine [Mass/volume] in UrineOrdered By: Dilan Nguyễn on 07-18-2023 Creatinine (U) [Mass/Vol] 65.0 mg/dL 11.0-20.0 [facility] Dipstick and Microscopicon 0 07-18-2023 Appearance (U) Clear Normal Clear [facility] Comment on above: Order Comment: Reaso n for Exam Hypertensive chronic kidney disease with stage 1 through sta Name Collection Type:: Clean-Voided Midstream Performed By: #### R ENAL, MG, [id number], CBCNO, URIC, PTH #### [facility] [address] [place] [address] Bacteria,Urine None Seen Normal None Seen [facility] Comment on above: Order Comment: Reaso n for Exam Hypertensive chronic kidney disease with stage 1 through sta Name Collection Type:: Clean-Voided Midstream Performed By: #### R ENAL, MG, [id number], CBCNO, URIC, PTH #### [facility] [address] [id number] [facility] Bilirubin,Urine Negative Normal Negative The [facility] Comment on above: Order Comment: Reaso n for Exam Hypertensive chronic kidney disease with stage 1 through sta Name Collection Type:: Clean-Voided Midstream Performed By: #### R ENAL, MG, [id number], CBCNO, URIC, PTH #### [facility] [address] [place] [id number] [place] Glucose Ql (U) 500 mg/dL High Normal [facility] Comment on above: Order Comment: Reaso n for Exam Hypertensive chronic kidney disease with stage 1 through sta Name Collection Type:: Clean-Voided Midstream Performed By: #### R ENAL, MG, [id number], CBCNO, URIC, PTH #### [facility] [address] Hyaline Casts,Urine 0-8 Normal 0-8 [facility] Comment on above: Order Comment: Reaso n for Exam Hypertensive chronic kidney disease with stage 1 through sta Name Collection Type:: Clean-Voided Midstream Result Comment: PERF ORMED BY: [place] [address] PATHOLOGIST SALES AND SERVICE CONSULTANT JACQUELINE ZAVALA M.D. Performed By: #### R ENAL, MG, [id number], CBCNO, URIC, PTH #### [address] Ketones Ql (U) Negative Normal Negative [facility] Comment on above: Order Comment: Reaso n for Exam Hypertensive chronic kidney disease with stage 1 through sta Name Collection Type:: Clean-Voided Midstream Performed By: #### R ENAL, MG, [id number], CBCNO, URIC, PTH #### [address] Leukocyte esterase Test strip Ql (U) 3+ High Negative [facility] Comment on above: Order Comment: Reaso n for Exam Hypertensive chronic kidney disease with stage 1 through sta Name Collection Type:: Clean-Voided Midstream Performed By: #### R ENAL, MG, [id number], CBCNO, URIC, PTH #### [facility] [address] [place] [address] [place] Nitrite,Urine Negative Normal Negative [facility] Comment on above: Order Comment: Reaso n for Exam Hypertensive chronic kidney disease with stage 1 through sta Name Collection Type:: Clean-Voided Midstream Performed By: #### R ENAL, MG, [id number], CBCNO, URIC, PTH #### [address] Occult Blood,Urine Trace High Negative [facility] Comment on above: Order Comment: Reaso n for Exam Hypertensive chronic kidney disease with stage 1 through sta Name Collection Type:: Clean-Voided Midstream Performed By: #### R ENAL, MG, [id number], CBCNO, URIC, PTH #### [facility] [address] Protein,Urine Negative Normal Negative [facility] Comment on above: Order Comment: Reaso n for Exam Hypertensive chronic kidney disease with stage 1 through sta Name Collection Type:: Clean-Voided Midstream Performed By: #### R ENAL, MG, [id number], CBCNO, URIC, PTH #### [facility] [address] [place] [address] RBC,Urine 10-19 High 0-4 [facility] Comment on above: Order Comment: Reaso n for Exam Hypertensive chronic kidney disease with stage 1 through sta Name Collection Type:: Clean-Voided Midstream Performed By: #### R ENAL, MG, [id number], CBCNO, URIC, PTH #### [address] Specificy [place],Urine 1.015 Normal 1.001-1.030 [facility] Comment on above: Order Comment: Reaso n for Exam Hypertensive chronic kidney disease with stage 1 through sta Name Collection Type:: Clean-Voided Midstream Performed By: #### R ENAL, MG, [id number], CBCNO, URIC, PTH #### [address] Squamous Epithelial Cell,Urine 3-4 High 0-2 [facility] Comment on above: Order Comment: Reaso n for Exam Hypertensive chronic kidney disease with stage 1 through sta Name Collection Type:: Clean-Voided Midstream Performed By: #### R ENAL, MG, [id number], CBCNO, URIC, PTH #### [address] Urobilinogen,Urine Normal Normal Normal [facility] Comment on above: Order Comment: Reaso n for Exam Hypertensive chronic kidney disease with stage 1 through sta Name Collection Type:: Clean-Voided Midstream Performed By: #### R ENAL, MG, [id number], CBCNO, URIC, PTH #### [facility] [address] WBC,Urine 10-19 High 0-4 [facility] Comment on above: Order Comment: Reaso n for Exam Hypertensive chronic kidney disease with stage 1 through sta Name Collection Type:: Clean-Voided Midstream Performed By: #### R ENAL, MG, [id number], CBCNO, URIC, PTH #### [facility] [address] Erythrocyte distribution wid th [Ratio] by Automated countOrdered By: Dilan Nguyễn on 07-18-2023 Erythrocyte distribution width (RBC) [Ratio] 15.2 % Normal 11.9-15.3 [facility] Comment on above: Order Comment: Evitao n for Exam Hypertensive chronic kidney disease with stage 1 through sta Performed By: #### R ENAL, MG, [id number], CBCNO, URIC, PTH #### [facility] [address] [place] [address] Erythrocytes [#/volume] in B lood by Automated countOrdered By: Dilan Nguyễn on 07-18-2023 RBC (Bld) [#/Vol] 5.25 10*6/uL High 3.60-5.00 [facility] Comment on above: Order Comment: Reaso n for Exam Hypertensive chronic kidney disease with stage 1 through sta Performed By: #### R ENAL, MG, [id number], CBCNO, URIC, PTH #### [facility] [address] [place] [address] Glucose [Mass/volume] in Ser um or PlasmaOrdered By: Dilan Nguyễn on 07-18-2023 Glucose [Mass/Vol] 101 mg/dL High 70-100 [facility] Comment on above: ADA recommended refe rence rangeRandom Glucose Reference Range is dependent on time and content of last meal. Glucose of more than 200 mg/dL in a nonstressed, ambulatory subject supports the diagnosis of Diabetes Mellitus. Order Comment: Evitao n for Exam Hypertensive chronic kidney disease with stage 1 through sta Result Comment: [place] Glucose Reference Range is dependent on time and content of last meal. Glucose of more than 200 mg/dL in a nonstressed, ambulatory subject supports the diagnosis of Diabetes Mellitus. ADA recommended reference range Performed By: #### M G, [id number], URIC, RENAL #### [facility] [address] [place] [id number] [facility] Hematocrit [Volume Fraction] of Blood by Automated countOrdered By: Dilan Nguyễn on 07-18-2023 Hematocrit (Bld) [Volume fraction] 46.5 % High 34.0-46.4 [facility] Comment on above: Order Comment: Reaso n for Exam Hypertensive chronic kidney disease with stage 1 through sta Performed By: #### R ENAL, MG, [id number], CBCNO, URIC, PTH #### [address] Hemoglobin [Mass/volume] in BloodOrdered By: Dilan Nguyễn on 07-18-2023 Hemoglobin (Bld) [Mass/Vol] 15.1 g/dL Normal 11.8-15.4 [facility] Comment on above: Order Comment: Reaso n for Exam Hypertensive chronic kidney disease with stage 1 through sta Performed By: #### R ENAL, MG, [id number], CBCNO, URIC, PTH #### [address] Hemogram CBC Without Diffon 07-18-2023 Mean Corpuscular HGB Conc 32.5 g/dL Normal 32.0-35.0 [facility] Comment on above: Order Comment: Reaso n for Exam Hypertensive chronic kidney disease with stage 1 through sta Performed By: #### R ENAL, MG, [id number], CBCNO, URIC, PTH #### [facility] [address] [place] [address] [place] WBC (Bld) [#/Vol] 9.9 10*3/uL Normal 3.8-11.6 [facility] Comment on above: Order Comment: Reaso n for Exam Hypertensive chronic kidney disease with stage 1 through sta Performed By: #### R ENAL, MG, [id number], CBCNO, URIC, PTH #### [facility] [address] Ketones Auto test strip (U) [Mass/Vol]Ordered By: Dilan Nguyễn on 07-18-2023 Ketones (U) [Mass/Vol] Negative Negative [facility] - UrinalysisOrder ed By: Dilan Nguyễn on 07-18-2023 Hyaline casts LM Ql (Urine sed) 0-8 [LPF] 0-8 [facility] Leukocytes [#/volume] correc cristine for nucleated erythrocytes in Blood by Automated counOrdered By: Dilan Nguyễn on 07-18-2023 WBC corrected for nucl RBC Auto (Bld) [#/Vol] 9.9 10*3/uL 3.8-11.6 [facility] MCH [Entitic mass] by Automa cristine countOrdered By: Dilan Nguyễn on 07-18-2023 MCH (RBC) [Entitic mass] 28.8 pg Normal 24.7-34.3 [facility] Comment on above: Order Comment: Reaso n for Exam Hypertensive chronic kidney disease with stage 1 through sta Performed By: #### R ENAL, MG, [id number], CBCNO, URIC, PTH #### [facility] [address] [place] [address] MCHC Auto (RBC) [Mass/Vol]Or dered By: Dilan Nguyễn on 07-18-2023 MCHC (RBC) [Mass/Vol] 32.5 g/dL 32.0-35.0 [facility] MCV [Entitic volume] by Auto mated countOrdered By: Dilan Nguyễn on 07-18-2023 MCV (RBC) [Entitic vol] 88.7 fL Normal 80-100 [facility] Comment on above: Order Comment: Reaso n for Exam Hypertensive chronic kidney disease with stage 1 through sta Performed By: #### R ENAL, MG, [id number], CBCNO, URIC, PTH #### [facility] [address] Magnesium [Mass/volume] in S hayder or PlasmaOrdered By: Dilan Nguyễn on 07-18-2023 Magnesium [Mass/Vol] 2.3 mg/dL Normal 1.9-2.7 [facility] Comment on above: Order Comment: Reaso n for Exam Hypertensive chronic kidney disease with stage 1 through sta Performed By: #### M G, [id number], URIC, RENAL #### [facility] [address] Nitrite Test strip Ql (U)Ord ered By: Dilan Nguyễn on 07-18-2023 Nitrite Ql (U) Negative Negative [facility] No Panel InformationOrdered By: Dilan Nguyễn on 07-18-2023 Estimated GFR (CKD-EPI) 16.276 mL/Min [facility] Creatinine Clearance (Chem N/A [facility] Parathyrin.intact [Mass/volu me] in Serum or PlasmaOrdered By: Dilan Nguyễn on 07-18-2023 Parathyrin.intact [Mass/Vol] 47.1 pg/mL [facility] Parathyroid Hormone Intacton 07-18-2023 Parathyroid Hormone Intact 47.1 pg/mL Normal [facility] Comment on above: Order Comment: Reaso n for Exam Hypertensive chronic kidney disease with stage 1 through sta Result Comment: PERF ORMED BY: [place] [address] PATHOLOGIST SALES AND SERVICE CONSULTANT JACQUELINE ZAVALA M.D. Performed By: #### R ENAL, MG, [id number], CBCNO, URIC, PTH #### [facility] [address] [place] [address] [place] Phosphate [Mass/volume] in S hayder or PlasmaOrdered By: Dilan Nguyễn on 07-18-2023 Phosphate [Mass/Vol] 5.2 mg/dL High 2.5-4.5 [facility] Comment on above: Order Comment: Reaso n for Exam Hypertensive chronic kidney disease with stage 1 through sta Performed By: #### M G, [id number], URIC, RENAL #### [facility] [address] [place] [id number] [place] Platelet mean volume [Entiti c volume] in Blood by Automated countOrdered By: Dilan Nguyễn on 07-18-2023 Platelet mean volume (Bld) [Entitic vol] 7.9 fL Normal 6.3-10.7 [facility] Comment on above: Order Comment: Reaso n for Exam Hypertensive chronic kidney disease with stage 1 through sta Result Comment: PERF ORMED BY: [place] [address] PATHOLOGIST SALES AND SERVICE CONSULTANT JACQUELINE ZAVALA M.D. Performed By: #### R ENAL, MG, [id number], CBCNO, URIC, PTH #### [facility] [address] [place] [address] Platelets [#/volume] in Bloo d by Automated countOrdered By: Dilan Nguyễn on 07-18-2023 Platelets (Bld) [#/Vol] 361 10*3/uL Normal 150-450 [facility] Comment on above: Order Comment: Reaso n for Exam Hypertensive chronic kidney disease with stage 1 through sta Performed By: #### R ENAL, MG, [id number], CBCNO, URIC, PTH #### [facility] [address] [place] [address] Potassium [Moles/volume] in Serum or PlasmaOrdered By: Dilan Nguyễn on 07-18-2023 Potassium [Moles/Vol] 4.6 mmol/L Normal 3.5-5.1 [facility] Comment on above: Order Comment: Reaso n for Exam Hypertensive chronic kidney disease with stage 1 through sta Performed By: #### M G, [id number], URIC, RENAL #### [facility] [address] [place] [address] Protein Auto test strip (U) [Mass/Vol]Ordered By: Dilan Nguyễn on 07-18-2023 Protein (U) [Mass/Vol] Negative Negative [facility] Protein Creat Ratio Ur Rando mon 07-18-2023 Creatinine, Urine (Random) 65.0 mg/dL High 11.0-20.0 [facility] Comment on above: Order Comment: Reaso n for Exam Hypertensive chronic kidney disease with stage 1 through sta Performed By: #### R ENAL, MG, [id number], CBCNO, URIC, PTH #### [address] Protein, Urine (Random) < 4 Normal 0-9 [facility] Comment on above: Order Comment: Reaso n for Exam Hypertensive chronic kidney disease with stage 1 through sta Performed By: #### R ENAL, MG, [id number], CBCNO, URIC, PTH #### [address] Urine Protein/Creatinine Ratio Not performed Normal 0-200 [facility] Comment on above: Order Comment: Reaso n for Exam Hypertensive chronic kidney disease with stage 1 through sta Result Comment: PERF ORMED BY: [place] [address] PATHOLOGIST SALES AND SERVICE CONSULTANT JACQUELINE ZAVALA M.D. Performed By: #### R ENAL, MG, [id number], CBCNO, URIC, PTH #### [address] Protein [Mass/volume] in Uri neOrdered By: Dilan Nguyễn on 07-18-2023 Protein (U) [Mass/Vol] mg/dL 0-9 [facility] Renal Function Panelon 07-17 Albumin [Mass/Vol] 4.1 g/dL Normal 3.5-5.7 [facility] Comment on above: Order Comment: Reaso n for Exam Hypertensive chronic kidney disease with stage 1 through sta Performed By: #### M G, [id number], URIC, RENAL #### [place] [address] [place] GFR/1.73 sq M.predicted MDRD (S/P/Bld) [Vol rate/Area] 16.276 mL/min/{1.73_m2} Normal [facility] Comment on above: Order Comment: Reaso n for Exam Hypertensive chronic kidney disease with stage 1 through sta Performed By: #### M G, [id number], URIC, RENAL #### [address] Serum or plasma anion gap de terminationOrdered By: Dilan Nguyễn on 07-18-2023 Anion gap [Moles/Vol] 12.6 mmol/L Normal 6.0-15.0 [facility] Comment on above: Order Comment: Reaso n for Exam Hypertensive chronic kidney disease with stage 1 through sta Performed By: #### M G, [id number], URIC, RENAL #### [facility] [address] [place] [address] [place] Sodium [Moles/volume] in Ser um or PlasmaOrdered By: Dilan Nguyễn on 07-18-2023 Sodium [Moles/Vol] 136 mmol/L Normal 136-145 [facility] Comment on above: Order Comment: Reaso n for Exam Hypertensive chronic kidney disease with stage 1 through sta Performed By: #### M G, [id number], URIC, RENAL #### [facility] [address] [place] [id number] [facility] Specific gravity Auto test s trip (U) [Rel density]Ordered By: Dilan Nguyễn on 07-18-2023 Specific gravity (U) [Rel density] 1.015 1.001-1.030 [facility] Squamous epithelial cells de tection in urine sediment by light microscopyOrdered By: Dilan Nguyễn on 07-18-2023 Epithelial cells.squamous LM Ql (Urine sed) 3-4 [HPF] 0-2 [facility] Urate [Mass/volume] in Serum or PlasmaOrdered By: Dilan Nguyễn on 07-18-2023 Urate [Mass/Vol] 5.4 mg/dL Normal 2.3-6.6 [facility] Comment on above: Order Comment: Reaso n for Exam Hypertensive chronic kidney disease with stage 1 through sta Performed By: #### M G, [id number], URIC, RENAL #### [facility] [address] [place] [id number] [place] Urea nitrogen [Mass/volume] in Serum or PlasmaOrdered By: Dilan Nguyễn on 07-18-2023 Urea nitrogen [Mass/Vol] 43 mg/dL High 7-25 [facility] Comment on above: Order Comment: Reaso n for Exam Hypertensive chronic kidney disease with stage 1 through sta Performed By: #### M G, [id number], URIC, RENAL #### [facility] [address] [place] [address] [place] Urine Cultureon 07-18-2023 Bacteria identified Cx Nom (U) <9,000 colonies/ml mixed bacterial skin contaminants 2 Days PERFORMED BY: [place] [address] PATHOLOGIST SALES AND SERVICE CONSULTANT JACQUELINE ZAVALA M.D. Normal [facility] Comment on above: Performed By: #### R ENAL, MG, [id number], CBCNO, URIC, PTH #### [facility] [address] Urine bacteria detection by automated methodOrdered By: Dilan Nguyễn on 07-18-2023 Bacteria Auto Ql (U) None seen None Seen [facility] Urine clarity by refractomet ry automatedOrdered By: Dilan Nguyễn on 07-18-2023 Clarity Refractometry automated (U) Clear Clear [facility] Urine culture routineOrdered By: Dilan Nguyễn on 07-18-2023 Bacteria identified Cx Nom (U) 2 Days [facility] Urine glucose measurement by automated test strip (mass/volume)Ordered By: Dilan Nguyễn on 07-18-2023 Glucose Auto test strip (U) [Mass/Vol] 500 mg/dL Normal [facility] Urine hemoglobin detection b y automated test stripOrdered By: Dilan Nguyễn on 07-18-2023 Hemoglobin Auto test strip Ql (U) Trace Negative [facility] Urine leukocyte esterase det ection by automated test stripOrdered By: Dilan Nguyễn on 07-18-2023 Leukocyte esterase Auto test strip Ql (U) 3+ Negative [facility] Urine pH measurement by auto mated test stripOrdered By: Dilan Nguyễn on 07-18-2023 pH (U) 5.5 [pH] Normal 5.0-9.0 [facility] Comment on above: Order Comment: Reaso n for Exam Hypertensive chronic kidney disease with stage 1 through sta Name Collection Type:: Clean-Voided Midstream Performed By: #### R ENAL, MG, [id number], CBCNO, URIC, PTH #### [facility] [address] [id number] [facility] Urine protein/creatinine rat ioOrdered By: Dilan Nguyễn on 07-18-2023 Protein/Creatinine (U) [Ratio] TNP [facility] Comment on above: Test not performed Urobilinogen Auto test strip (U) [Mass/Vol]Ordered By: Dilan Nguyễn on 07-18-2023 Urobilinogen (U) [Mass/Vol] Normal mg/dL Normal [facility] Vitamin D 25 Hydroxy Totalon 07-18-2023 Vitamin D 25 Hydroxy Total 47.8 ng/mL Normal 30-100 [facility] Comment on above: [...] practice guideline. JCEM. 2010; 96(7):1911-30. PERFORMED BY: [place] [address] PATHOLOGIST SALES AND SERVICE CONSULTANT JACQUELINE ZAVALA M.D. Performed By: #### M G, [id number], URIC, RENAL #### [facility] [address] [place], [place] [id number] [facility] Vitamin D+Metabolites [Mass/ volume] in Serum or PlasmaOrdered By: Dilan Nguyễn on 07-18-2023 Vitamin D+Metabolites [Mass/Vol] 47.8 ng/mL 30-100 [facility] Comment on above: VITAMIN D STATUS 25( OH)VITAMIN D RANGE (ng/mL) Deficient <20 Insufficient 20 to <30Sufficient 30 to 100Reference: Mizty Gutiérrez, Brandt CONNER, et al. Evaluation,treatment, and prevention of vitamin D deficiency; an Endocrine Society clinical practice guideline. JCEM. 2010; 96(7):1911-30. Dermatopathologyon 3 Dermatopathology Name [facility]LO[facility]ICKENS Pathologist: GUS VIDAL MD Date of Procedure: 08/26/2022 Date Received: 08/27/2022 Date Reported 08/28/2022 Submitting Physician: REYNA RDZ MD Location: [facility] Other External # FINAL DIAGNOSIS SKIN, L UPPER BACK, EXCISION: CHANGES CONSISTENT WITH PREVIOUS PROCEDURE, INKED MARGINS FREE IN PLANES OF SECTIONS EXAMINED WITHOUT RESIDUAL ATYPICAL MELANOCYTIC NEOPLASM SEEN. Electronically Signed Out by GUS VIDAL M.D. Electronically Signed Out By GUS VIDAL MD/[facility] By the signature on this report, the individual or group listed as making the Final Interpretation/Diagnosi s certifies that they have reviewed this case. Diagnostic interpretation performed at D[facility]atopath Lab [address] [place] [address] Microscopic Description: Microscopic examination reveals a specimen that extends into the subcutaneous fat. An area with horizontally oriented collagen and vertically oriented vessels is present. Clinical History: R/O clear margins [id number]. Excision. (Aleksandr) Specimens Submitted As: A: SKIN, L UPPER BACK Gross Description: Received in formalin is a rosas ellipsoid piece of skin measuring [id number]. The specimen is inked and embedded in toto in three blocks. The tips are in block A1. ink/08/27/2022 [facility] [address] [address] Normal [facility] Comment on above: Performed By: #### D #### Dermatopathology Albumin [Mass/volume] in Ser um or Plasma by Bromocresol green (BCG) dye binding methoOrdered By: Dilan Nguyễn on 07-13-2022 Albumin BCG dye [Mass/Vol] 4.1 g/dL 3.5-5.7 [facility] Automated erythrocytes count in urine sediment (number/area)Ordered By: Dilan Nguyễn on 07-13-2022 RBC Auto (Urine sed) [#/Area] 0-1 [HPF] 0-4 [facility] Automated leukocytes count i n urine sediment (number/area)Ordered By: Dilan Nguyễn on 07-13-2022 WBC Auto (Urine sed) [#/Area] 10-19 [HPF] 0-4 [facility] Bilirubin Test strip Ql (U)O rdered By: Dilan Nguyễn on 07-13-2022 Bilirubin Ql (U) Negative Negative [facility] Calcium [Mass/volume] in Ser um or PlasmaOrdered By: Dilan Nguyễn on 07-13-2022 Calcium [Mass/Vol] 9.4 mg/dL 8.6-10.3 [facility] Carbon dioxide, total [Moles /volume] in Serum or PlasmaOrdered By: Dilan Nguyễn on 07-13-2022 CO2 [Moles/Vol] 24.7 mmol/L 21.0-31.0 [facility] Chloride [Moles/volume] in S hayder or PlasmaOrdered By: Dilan Nguyễn on 07-13-2022 Chloride [Moles/Vol] 109 mmol/L 98-107 [facility] Color Auto (U)Ordered By: Ab halie Nguyễn on 07-13-2022 Color (U) Yellow Yellow [facility] Creatinine [Mass/volume] in Serum or PlasmaOrdered By: Dilan Nguyễn on 07-13-2022 Creatinine [Mass/Vol] 1.63 mg/dL 0.60-1.20 [facility] Erythrocyte distribution wid th Auto (RBC) [Ratio]Ordered By: Dilan Nguyễn on 07-13-2022 Erythrocyte distribution width (RBC) [Ratio] 14.9 % 11.9-15.3 [facility] Glucose [Mass/volume] in Ser um or PlasmaOrdered By: Dilan Nguyễn on 07-13-2022 Glucose [Mass/Vol] 76 mg/dL 74-109 [facility] Comment on above: ADA recommended refe rence rangeRandom Glucose Reference Range is dependent on time and content of last meal. Glucose of more than 200 mg/dL in a nonstressed, ambulatory subject supports the diagnosis of Diabetes Mellitus. Hematocrit Auto (Bld) [Volum e fraction]Ordered By: Dilan Nguyễn on 07-13-2022 Hematocrit (Bld) [Volume fraction] 42.1 % 34.0-46.4 [facility] Hemoglobin [Mass/volume] in BloodOrdered By: Dilan Nguyễn on 07-13-2022 Hemoglobin (Bld) [Mass/Vol] 13.9 g/dL 11.8-15.4 [facility] Ketones Auto test strip (U) [Mass/Vol]Ordered By: Dilan Nguyễn on 07-13-2022 Ketones (U) [Mass/Vol] Negative Negative [facility] Laboratory - Chemistry and C hemistry - challengeOrdered By: Dilan Nguyễn on 07-13-2022 GFR/1.73 sq M.predicted MDRD (S/P/Bld) [Vol rate/Area] 33.511 mL/min/{1.73_m2} [facility] Laboratory - UrinalysisOrder ed By: Dilan Nguyễn on 07-13-2022 Hyaline casts LM Ql (Urine sed) None seen [LPF] 0-8 [facility] Leukocytes [#/volume] correc cristine for nucleated erythrocytes in Blood by Automated counOrdered By: Dilan Nguyễn on 07-13-2022 WBC corrected for nucl RBC Auto (Bld) [#/Vol] 10.9 10*3/uL 3.8-11.6 [facility] MCH Auto (RBC) [Entitic mass ]Ordered By: Dilan Nguyễn on 07-13-2022 MCH (RBC) [Entitic mass] 29.7 pg 24.7-34.3 [facility] MCHC Auto (RBC) [Mass/Vol]Or dered By: Dilan Nguyễn on 07-13-2022 MCHC (RBC) [Mass/Vol] 33.1 g/dL 32.0-35.0 [facility] MCV Auto (RBC) [Entitic vol] Ordered By: Dilan Nguyễn on 07-13-2022 MCV (RBC) [Entitic vol] 89.8 fL 80-100 [facility] Magnesium [Mass/volume] in S hayder or PlasmaOrdered By: Dilan Nguyễn on 07-13-2022 Magnesium [Mass/Vol] 2.1 mg/dL 1.9-2.7 [facility] Nitrite Test strip Ql (U)Ord ered By: Dilan Nguyễn on 07-13-2022 Nitrite Ql (U) Negative Negative [facility] No Panel InformationOrdered By: Dilan Nguyễn on 07-13-2022 Pharmacy Creatinine Clearance (Chem N/A [facility] Parathyrin.intact [Mass/volu me] in Serum or PlasmaOrdered By: Dilan Nguyễn on 07-13-2022 Parathyrin.intact [Mass/Vol] 38.3 pg/mL 12-88 [facility] Phosphate [Mass/volume] in S hayder or PlasmaOrdered By: Dilan Nguyễn on 07-13-2022 Phosphate [Mass/Vol] 4.1 mg/dL 3.7-7.2 [facility] Platelet mean volume Auto (B ld) [Entitic vol]Ordered By: Dilan Nguyễn on 07-13-2022 Platelet mean volume (Bld) [Entitic vol] 9.0 fL 6.3-10.7 [facility] Platelets Auto (Bld) [#/Vol] Ordered By: Dilan Nguyễn on 07-13-2022 Platelets (Bld) [#/Vol] 363 10*3/uL 150-450 [facility] Potassium [Moles/volume] in Serum or PlasmaOrdered By: Dilan Nguyễn on 07-13-2022 Potassium [Moles/Vol] 4.2 mmol/L 3.5-5.1 [facility] Protein Auto test strip (U) [Mass/Vol]Ordered By: Dilan Nguyễn on 07-13-2022 Protein (U) [Mass/Vol] Negative Negative [facility] RBC Auto (Bld) [#/Vol]Ordere d By: Dilan Nguyễn on 07-13-2022 RBC (Bld) [#/Vol] 4.69 10*6/uL 3.60-5.00 [facility] Serum or plasma anion gap de terminationOrdered By: Dilan Nguyễn on 07-13-2022 Anion gap [Moles/Vol] 11.5 mmol/L 6.0-15.0 [facility] Sodium [Moles/volume] in Ser um or PlasmaOrdered By: Dilan Nguyễn on 07-13-2022 Sodium [Moles/Vol] 141 mmol/L 136-145 [facility] Specific gravity Auto test s trip (U) [Rel density]Ordered By: Dilan Nguyễn on 07-13-2022 Specific gravity (U) [Rel density] 1.019 1.001-1.030 [facility] Squamous epithelial cells de tection in urine sediment by light microscopyOrdered By: Dilan Nguyễn on 07-13-2022 Epithelial cells.squamous LM Ql (Urine sed) 3-4 [HPF] 0-2 [facility] Urate [Mass/volume] in Serum or PlasmaOrdered By: Dilan Nguyễn on 07-13-2022 Urate [Mass/Vol] 5.3 mg/dL 2.3-6.6 [facility] Urea nitrogen [Mass/volume] in Serum or PlasmaOrdered By: Dilan Nguyễn on 07-13-2022 Urea nitrogen [Mass/Vol] 34 mg/dL 7-25 [facility] Urine bacteria detection by automated methodOrdered By: Dilan Nguyễn on 07-13-2022 Bacteria Auto Ql (U) None seen None Seen [facility] Urine clarity by refractomet ry automatedOrdered By: Dilan Nguyễn on 07-13-2022 Clarity Refractometry automated (U) Clear Clear [facility] Urine glucose measurement by automated test strip (mass/volume)Ordered By: Dilan Nguyễn on 07-13-2022 Glucose Auto test strip (U) [Mass/Vol] >=1000 mg/dL Normal [facility] Urine hemoglobin detection b y automated test stripOrdered By: Dilan Nguyễn on 07-13-2022 Hemoglobin Auto test strip Ql (U) Negative Negative [facility] Urine leukocyte esterase det ection by automated test stripOrdered By: Dilan Nguyễn on 07-13-2022 Leukocyte esterase Auto test strip Ql (U) 2+ Negative [facility] Urobilinogen Auto test strip (U) [Mass/Vol]Ordered By: Dilan Nguyễn on 07-13-2022 Urobilinogen (U) [Mass/Vol] Normal mg/dL Normal [facility] Vitamin D+Metabolites [Mass/ volume] in Serum or PlasmaOrdered By: Dilan Nguyễn on 07-13-2022 Vitamin D+Metabolites [Mass/Vol] 48.0 ng/mL 30-100 [facility] Comment on above: VITAMIN D STATUS 25( [place])VITAMIN D RANGE (ng/mL) Deficient <20 Insufficient 20 to <30Sufficient 30 to 100Reference: Brittni MF,Mitzy NC, Brandt CONNER, et al. Evaluation,treatment, and prevention of vitamin D deficiency; an Endocrine Society clinical practice guideline. JCEM. 2010; 96(7):1911-30. pH Auto test strip (U)Ordere d By: Dilan Nguyễn on 07-13-2022 pH (U) 5.5 [pH] 5.0-9.0 [facility] Dermatopathologyon Dermatopathology Name CHLOE PICKENS Pathologist: GUS VIDAL MD Date of Procedure: 07/10/2022 Date Received: 07/11/2022 Date Reported 07/12/2022 Submitting Physician: REYNA RDZ MD Location: [facility] Copy To/Referring/Attending: HUNTER BHAGAT MD Other External [...] M.D. Electronically Signed Out By GUS VIDAL MD/[facility] By the signature on this report, the individual or group listed as making the Final Interpretation/Diagnosi s certifies that they have reviewed this case. Diagnostic interpretation performed at Dermatopath Lab [address] [address], [facility] [address] Microscopic Description: A. Microscopic analysis shows an [...] Lentigo and SK. Hx MM. Shave Biopsy. ([facility]). Specimens Submitted As: A: SKIN, L UPPER BACK B: SKIN, L MID BACK Gross Description: A: Received in formalin is one rosas-brown piece of skin measuring [id number]. The specimen is inked and embedded in toto. B: Received in formalin is one rosas-brown piece of skin measuring [id number]. The specimen is inked and embedded in toto. ohp/07/11/2022 [facility] Dermatopathology Laboratory [address] [place] [address] Comment on above: Performed By: #### D #### Dermatopathology Albumin [Mass/volume] in Ser um or PlasmaOrdered By: Dilan Nguyễn on 05-13-2022 Albumin [Mass/Vol] 3.6 g/dL 3.2-5.5 [facility] Creatinine and Glomerular fi ltration rate.predicted panel (S/P/Bld)Ordered By: Dilan Nguyễn on 05-13-2022 Creatinine [Mass/Vol] 1.77 mg/dL 0.44-1.03 [facility] Estimated glomerular filtrat ion rate (GFR) non- AmericanOrdered By: Dilan Nguyễn on 05-13-2022 GFR/1.73 sq M.predicted among non-blacks MDRD (S/P/Bld) [Vol rate/Area] 28 mL/Min [facility] Laboratory - Chemistry and C hemistry - challengeOrdered By: Dilan Nguyễn on 05-13-2022 Magnesium [Mass/Vol] 2.0 mg/dL 1.6-2.6 [facility] Magnesiumon 05-13-2022 Magnesium [Mass/Vol] 2.3354428 mg/dL Normal 1.6- 2.6 mg/dL [employer] Other No Panel InformationOrdered By: Dilan Nguyễn on 05-13-2022 Estimated GFR () 34 mL/Min [facility] Comment on above: GFR estimated refere nce range: According to KDOQI guidelines, <60 ml/min/1.73m2 is sufficient to diagnose a patient with chronic kidney disease. Pharmacy Creatinine Clearance (Chem N/A [facility] Phosphate [Mass/volume] in S hayder or PlasmaOrdered By: Dilan Nguyễn on 05-13-2022 Phosphate [Mass/Vol] 3.9 mg/dL 2.5-4.6 [facility] Renal Function Panelon 05-13 Albumin [Mass/Vol] 3.484788 g/dL Normal 3.2-5.5 g/dL [employer] Other Calcium [Mass/Vol] 9.1990745 mg/dL Normal 8.2-10 .2 mg/dL [employer] Other CO2 [Moles/Vol] 25.70551558 mmol/L Normal 22.0-3 0.0 mmol/L [employer] Other Creatinine [Mass/Vol] 1.92128426 mg/dL High 0. 44-1.03 mg/dL [employer] Other Phosphate [Mass/Vol] 3.6214623 mg/dL Normal 2.5- 4.6 mg/dL [employer] Other Potassium [Moles/Vol] 4.35111063 mmol/L Normal 3 .5-5.1 mmol/L [employer] Other Renal Function Panel 28 [employer] Other Renal Function Panel 34 [facility] [employer] Other Serum or plasma anion gap de terminationOrdered By: Dilan Nguyễn on 05-13-2022 Anion gap [Moles/Vol] 11.0 mmol/L 6.0-15.0 [facility] Serum or plasma calcium xavier urement (mass/volume)Ordered By: Dilan Nguyễn on 05-13-2022 Calcium [Mass/Vol] 9.2 mg/dL 8.2-10.2 [facility] Serum or plasma chloride bisi surement (moles/volume)Ordered By: Dilan Nguyễn on 05-13-2022 Chloride [Moles/Vol] 105 mmol/L 95-114 [facility] Serum or plasma glucose xavier urement (mass/volume)Ordered By: Dilan Nguyễn on 05-13-2022 Glucose [Mass/Vol] 189 mg/dL 70-100 [facility] Comment on above: ADA recommended refe rence rangeRandom Glucose Reference Range is dependent on time and content of last meal. Glucose of more than 200 mg/dL in a nonstressed, ambulatory subject supports the diagnosis of Diabetes Mellitus. Serum or plasma potassium me asurement (moles/volume)Ordered By: Dilan Nguyễn on 05-13-2022 Potassium [Moles/Vol] 4.5 mmol/L 3.5-5.1 [facility] Serum or plasma sodium measu rement (moles/volume)Ordered By: Dilan Nguyễn on 05-13-2022 Sodium [Moles/Vol] 137 mmol/L 136-146 [facility] Serum or plasma total carbon dioxide measurement (moles/volume)Ordered By: Dilan Nguyễn on 05-13-2022 CO2 [Moles/Vol] 25.5 mmol/L 22.0-30.0 [facility] Serum or plasma urea nitroge n measurement (mass/volume)Ordered By: Dilan Nguyễn on 05-13-2022 Urea nitrogen [Mass/Vol] 27 mg/dL 9-23 [facility] Body fluid albumin measureme nt (mass/volume)Ordered By: Dilan Nguyễn on 03-06-2022 Albumin (Body fld) [Mass/Vol] 3.8 g/dL 3.2-5.5 [facility] Creatinine and Glomerular fi ltration rate.predicted panel (S/P/Bld)Ordered By: Dilan Nguyễn on 03-06-2022 Creatinine [Mass/Vol] 1.69 mg/dL 0.44-1.03 [facility] Estimated glomerular filtrat ion rate (GFR) non- AmericanOrdered By: Dilan Nguyễn on 03-06-2022 GFR/1.73 sq M.predicted among non-blacks MDRD (S/P/Bld) [Vol rate/Area] 30 mL/Min [facility] Laboratory - Chemistry and C hemistry - challengeOrdered By: Dilan Nguyễn on 03-06-2022 Magnesium [Mass/Vol] 2.1 mg/dL 1.6-2.6 [facility] No Panel InformationOrdered By: Dilan Nguyễn on 03-06-2022 Estimated GFR () 36 mL/Min [facility] Comment on above: GFR estimated refere nce range: According to KDOQI guidelines, <60 ml/min/1.73m2 is sufficient to diagnose a patient with chronic kidney disease. Pharmacy Creatinine Clearance (Chem N/A [facility] Phosphate [Mass/volume] in S hayder or PlasmaOrdered By: Dilan Nguyễn on 03-06-2022 Phosphate [Mass/Vol] 4.3 mg/dL 2.5-4.6 [facility] Serum or plasma anion gap de terminationOrdered By: Dilan Nguyễn on 03-06-2022 Anion gap [Moles/Vol] 15.9 mmol/L 6.0-15.0 [facility] Serum or plasma calcium xavier urement (mass/volume)Ordered By: Dilan Nguyễn on 03-06-2022 Calcium [Mass/Vol] 9.8 mg/dL 8.2-10.2 [facility] Serum or plasma chloride bisi surement (moles/volume)Ordered By: Dilan Nguyễn on 03-06-2022 Chloride [Moles/Vol] 100 mmol/L 95-114 [facility] Serum or plasma glucose xavier urement (mass/volume)Ordered By: Dilan Nguyễn on 03-06-2022 Glucose [Mass/Vol] 84 mg/dL 70-100 [facility] Comment on above: ADA recommended refe rence rangeRandom Glucose Reference Range is dependent on time and content of last meal. Glucose of more than 200 mg/dL in a nonstressed, ambulatory subject supports the diagnosis of Diabetes Mellitus. Serum or plasma potassium me asurement (moles/volume)Ordered By: Dilan Nguyễn on 03-06-2022 Potassium [Moles/Vol] 4.5 mmol/L 3.5-5.1 [facility] Serum or plasma sodium measu rement (moles/volume)Ordered By: Dilan Nguyễn on 03-06-2022 Sodium [Moles/Vol] 139 mmol/L 136-146 [facility] Serum or plasma total carbon dioxide measurement (moles/volume)Ordered By: Dilan Nguyễn on 03-06-2022 CO2 [Moles/Vol] 27.6 mmol/L 22.0-30.0 [facility] Serum or plasma urea nitroge n measurement (mass/volume)Ordered By: Dilan Nguyễn on 03-06-2022 Urea nitrogen [Mass/Vol] 33 mg/dL 9-23 [facility] Urine culture routineOrdered By: Dilan Nguyễn on 02-22-2022 Bacteria identified Cx Nom (U) 2 Days [facility] Automated erythrocytes count in urine sediment (number/area)Ordered By: Dilan Nguyễn on 02-20-2022 RBC Auto (Urine sed) [#/Area] None seen [HPF] 0-4 [facility] Automated leukocytes count i n urine sediment (number/area)Ordered By: Dilan Nguyễn on 02-20-2022 WBC Auto (Urine sed) [#/Area] 5-9 [HPF] 0-4 [facility] Bilirubin Test strip Ql (U)O rdered By: Dilan Nguyễn on 02-20-2022 Bilirubin Ql (U) Negative Negative [facility] Body fluid albumin measureme nt (mass/volume)Ordered By: Dilan Nguyễn on 02-20-2022 Albumin (Body fld) [Mass/Vol] 3.5 g/dL 3.2-5.5 [facility] Color Auto (U)Ordered By: Ab halie Nguyễn on 02-20-2022 Color (U) Yellow Yellow [facility] Creatinine [Mass/volume] in UrineOrdered By: Dilan Nguyễn on 02-20-2022 Creatinine (U) [Mass/Vol] 33.4 mg/dL [facility] Comment on above: No reference range e stablished Creatinine and Glomerular fi ltration rate.predicted panel (S/P/Bld)Ordered By: Dilan Nguyễn on 02-20-2022 Creatinine [Mass/Vol] 1.69 mg/dL 0.44-1.03 [facility] Erythrocyte distribution wid th Auto (RBC) [Ratio]Ordered By: Dilan Nguyễn on 02-20-2022 Erythrocyte distribution width (RBC) [Ratio] 14.7 % 11.9-15.3 [facility] Estimated glomerular filtrat ion rate (GFR) non- AmericanOrdered By: Dilan Nguyễn on 02-20-2022 GFR/1.73 sq M.predicted among non-blacks MDRD (S/P/Bld) [Vol rate/Area] 30 mL/Min [facility] Hematocrit Auto (Bld) [Volum e fraction]Ordered By: Dilan Nguyễn on 02-20-2022 Hematocrit (Bld) [Volume fraction] 44.9 % 34.0-46.4 [facility] Hemoglobin [Mass/volume] in BloodOrdered By: Dilan Nguyễn on 02-20-2022 Hemoglobin (Bld) [Mass/Vol] 14.5 g/dL 11.8-15.4 [facility] Ketones Auto test strip (U) [Mass/Vol]Ordered By: Dilan Nguyễn on 02-20-2022 Ketones (U) [Mass/Vol] Negative Negative [facility] Laboratory - Chemistry and C hemistry - challengeOrdered By: Dilan Nguyễn on 02-20-2022 Magnesium [Mass/Vol] 1.9 mg/dL 1.6-2.6 [facility] Laboratory - UrinalysisOrder ed By: Dilan Nguyễn on 02-20-2022 Hyaline casts LM Ql (Urine sed) 0-8 [LPF] 0-8 [facility] MCH Auto (RBC) [Entitic mass ]Ordered By: Dilan Nguyễn on 02-20-2022 MCH (RBC) [Entitic mass] 28.8 pg 24.7-34.3 [facility] MCHC Auto (RBC) [Mass/Vol]Or dered By: Dilan Nguyễn on 02-20-2022 MCHC (RBC) [Mass/Vol] 32.3 g/dL 32.0-35.0 [facility] MCV Auto (RBC) [Entitic vol] Ordered By: Dilan Nguyễn on 02-20-2022 MCV (RBC) [Entitic vol] 89.2 fL 80-100 [facility] Nitrite Test strip Ql (U)Ord ered By: Dilan Nguyễn on 02-20-2022 Nitrite Ql (U) Negative Negative [facility] No Panel InformationOrdered By: Dilan Nguyễn on 02-20-2022 25-Hydroxy Vitamin D Total 43.0 ng/mL 30-100 [facility] Comment on above: VITAMIN D STATUS 25( [place])VITAMIN D RANGE (ng/mL) Deficient <20 Insufficient 20 to <30Sufficient 30 to 100Reference: Brittni MF,Mitzy NC, Brandt CONNER, et al. Evaluation,treatment, and prevention of vitamin D deficiency; an Endocrine Society clinical practice guideline. JCEM. 2010; 96(7):1911-30. Estimated GFR () 36 mL/Min [facility] Comment on above: GFR estimated refere nce range: According to KDOQI guidelines, <60 ml/min/1.73m2 is sufficient to diagnose a patient with chronic kidney disease. Pharmacy Creatinine Clearance (Chem N/A [facility] Phosphate [Mass/volume] in S hayder or PlasmaOrdered By: Dilan Nguyễn on 02-20-2022 Phosphate [Mass/Vol] 3.9 mg/dL 2.5-4.6 [facility] Platelet mean volume Auto (B ld) [Entitic vol]Ordered By: Dilan Nguyễn on 02-20-2022 Platelet mean volume (Bld) [Entitic vol] 8.6 fL 6.3-10.7 [facility] Platelets Auto (Bld) [#/Vol] Ordered By: Dilan Nguyễn on 02-20-2022 Platelets (Bld) [#/Vol] 327 10*3/uL 150-450 [facility] Protein Auto test strip (U) [Mass/Vol]Ordered By: Dilan Nguyễn on 02-20-2022 Protein (U) [Mass/Vol] Negative Negative [facility] Protein [Mass/volume] in Uri neOrdered By: Dilan Nguyễn on 02-20-2022 Protein (U) [Mass/Vol] mg/dL 0-9 [facility] RBC Auto (Bld) [#/Vol]Ordere d By: Dilan Nguyễn on 02-20-2022 RBC (Bld) [#/Vol] 5.04 10*6/uL 3.60-5.00 [facility] Serum or plasma anion gap de terminationOrdered By: Dilan Nguyễn on 02-20-2022 Anion gap [Moles/Vol] 10.6 mmol/L 6.0-15.0 [facility] Serum or plasma calcium xavier urement (mass/volume)Ordered By: Dilan Nguyễn on 02-20-2022 Calcium [Mass/Vol] 9.1 mg/dL 8.2-10.2 [facility] Serum or plasma chloride bisi surement (moles/volume)Ordered By: Dilan Nguyễn on 02-20-2022 Chloride [Moles/Vol] 105 mmol/L 95-114 [facility] Serum or plasma glucose xavier urement (mass/volume)Ordered By: Dilan Nguyễn on 02-20-2022 Glucose [Mass/Vol] 116 mg/dL 70-100 [facility] Comment on above: ADA recommended refe rence rangeRandom Glucose Reference Range is dependent on time and content of last meal. Glucose of more than 200 mg/dL in a nonstressed, ambulatory subject supports the diagnosis of Diabetes Mellitus. Serum or plasma intact parat hyroid hormone measurement (mass/volume)Ordered By: Dilan Nguyễn on 02-20-2022 Parathyrin.intact [Mass/Vol] 48.5 pg/mL 12-88 [facility] Serum or plasma potassium me asurement (moles/volume)Ordered By: Dilan Nguyễn on 02-20-2022 Potassium [Moles/Vol] 3.9 mmol/L 3.5-5.1 [facility] Serum or plasma sodium measu rement (moles/volume)Ordered By: Dilan Nguyễn on 02-20-2022 Sodium [Moles/Vol] 137 mmol/L 136-146 [facility] Serum or plasma total carbon dioxide measurement (moles/volume)Ordered By: Dilan Nguyễn on 02-20-2022 CO2 [Moles/Vol] 25.3 mmol/L 22.0-30.0 [facility] Serum or plasma urea nitroge n measurement (mass/volume)Ordered By: Dilan Nguyễn on 02-20-2022 Urea nitrogen [Mass/Vol] 26 mg/dL 9-23 [facility] Serum or plasma uric acid me asurement (mass/volume)Ordered By: Dilan Nguyễn on 02-20-2022 Urate [Mass/Vol] 4.3 mg/dL 2.6-7.2 [facility] Specific gravity Auto test s trip (U) [Rel density]Ordered By: Dilan Nguyễn on 02-20-2022 Specific gravity (U) [Rel density] 1.010 1.001-1.030 [facility] Squamous epithelial cells de tection in urine sediment by light microscopyOrdered By: Dilan Nguyễn on 02-20-2022 Epithelial cells.squamous LM Ql (Urine sed) 1-2 [HPF] 0-2 [facility] Urine bacteria detection by automated methodOrdered By: Dilan Nguyễn on 02-20-2022 Bacteria Auto Ql (U) None seen None Seen [facility] Urine clarity by refractomet ry automatedOrdered By: Dilan Nguyễn on 02-20-2022 Clarity Refractometry automated (U) Clear Clear [facility] Urine culture routineOrdered By: Dilan Nguyễn on 02-20-2022 Bacteria identified Cx Nom (U) 2 Days [facility] Urine glucose measurement by automated test strip (mass/volume)Ordered By: Dilan Nguyễn on 02-20-2022 Glucose Auto test strip (U) [Mass/Vol] Normal mg/dL Normal [facility] Urine hemoglobin detection b y automated test stripOrdered By: Dilan Nguyễn on 02-20-2022 Hemoglobin Auto test strip Ql (U) Negative Negative [facility] Urine leukocyte esterase det ection by automated test stripOrdered By: Dilan Yandir on 02-20-2022 Leukocyte esterase Auto test strip Ql (U) 3+ Negative [facility] Urine protein/creatinine rat ioOrdered By: Dilan Nguyễn on 02-20-2022 Protein/Creatinine (U) [Ratio] TNP [facility] Comment on above: Test not performed Urobilinogen Auto test strip (U) [Mass/Vol]Ordered By: Dilan Nguyễn on 02-20-2022 Urobilinogen (U) [Mass/Vol] Normal mg/dL Normal [facility] WBC Auto (Bld) [#/Vol]Ordere d By: Dilan Yandir on 02-20-2022 WBC (Bld) [#/Vol] 8.0 10*3/uL 3.8-11.6 [facility] pH Auto test strip (U)Ordere d By: Dilan Nguyễn on 02-20-2022 pH (U) 6.0 [pH] 5.0-9.0 [facility] Office Visit (Oncology Surge ry)on 06-18-2021 Follow-up [...] any other skin lesions. She saw her Telegraph Lineman Dr. Kelley and underwent a biopsy of [...] biopsies. She is being seen by a Felt Cutting Machine Operator for various issues including Left arm swelling. [...] MG Oral TabletTAKE 1 TABLET DAILY. Biotin [id number] 1 CAPSULE ORALLY bid Carvedilol 12.5 MG [...] Heath Francisco, (more content not included)... 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 She saw her Telegraph Lineman Dr. Kelley and underwent a biopsy of [...] Some irritable (more content not included)... Normal [facility] Office Visit (Oncology Surge ry)on 08-14-2020 Follow-up [...] any other skin lesions. She saw her Telegraph Lineman Dr. Kelley and underwent a biopsy of [...] (CVA) (V17.1) (more content not included)... Normal [facility] GLUCOSE-POCTon 10-08-2019 Glucose [Mass/Vol] 257 mg/dL [place] 74 - 99 [facility] [place]: Result Comment: Erna short MD/RN Performed By: #### G RYAN #### [address] [address] Glucose [Mass/Vol] 281 mg/dL High 74 - 99 [facility] [place] on above: Performed By: #### G RYAN #### [address] [address] History and Physical - Surge ry > [...] any other skin lesions. She saw her Telegraph Lineman Dr. Kelley and underwent a biopsy of the left arm lesion which demonstrated a 0.6mm non-ulcerated, no mitoses, melanoma. The patient's case was delayed due to the COVID19 pandemic and patient preference. Last Eliquis Dose 10/04/2019 - Cleared by Pulmonology Past medical history: Diabetes Mellitus HTN Bilateral Pulmonary embolisms s/p thrombectomy, currently on Eliquis CKD4 MAMIE Familial tremor Past surgical history: Gallbladder removed 1990s Bladder stone removal 2009 Tubal ligation Pulmonary [...] Last Updated: 08-Oct-2019 07:22 by Heath Francisco) [facility] Operative Reports - [place] on 10-08-2019 Operative Reports - [place] Preoperative diagnosis: Left upper arm melanoma Postoperative diagnosis: Same Procedure: 1) Wide excision Left upper arm melanoma with 1 cm. margins and intermediate repair of a 9cm. wound defect. Surgeon: Heath Francisco M.D. Divisional Human Resources Director: Tanya MCGREGOR Anesthesia: MAC and local EBL: [...] Last Updated: 08-Oct-2019 08:42 by Heath Francisco) [facility] Patient Profile - Preop v2on 10-08-2019 Patient Profile - Preop v2 Profile: Initial Info: How to be AddressedBARB Spoken Language PreferredEnglish Stated Reason for AdmissionMELENOMA REMOVED LT ARM Primary Contact Name and [phone] Patient Belongingsnone Medications Brought to Hospitalno Are you currently using the Personal Electronic Health Record or MYCAREno Are you interested in learning more about [facility] for the management of your healthnot at this time General Health: Blood Avoidance/Restrictionsn one Weight in kg120 kilogram(s) Weight in ypw743.5 pound(s) Weight Methodstated Height in cm165.1 centimeter(s) Height in feet5 feet Height in inches5 inch(es) Height Methodstated BMI (kg/m2)44.023 square meter Patient or Family Member Reaction to Anesthesiano previous reaction Health Mgmt: Barriers to Managing Healthnone [facility]M [facility] Relationship/Environ: Living Arrangementshouse [...] Learning Preferencesverbal instruction Cultural Considerationsnone Developmental Considerationsnone Mormonism Considerationsnone Other learner availableno Falls RiskPatient location auto qualifies him/her for HIGH RISK. Are there any cultural, spiritual, scientologist practices/values/needs that are important for us to knowno Do you want a visit/item from [facility] Pain Scalenumerical 0-10 Pain Scale Educationteaching provided Current Pain Level0 = None Acceptable Pain Level5 = Moderate Chronic Painno Information Review: Allergies, Home Meds and Significant Events have been Reviewed and Verified with Patient/Familyyes Electronic Signatures: Danuta Ngo (RN) (Signed 08-Oct-2019 07:36) Authored: Profile, Additional Information Last Updated: 08-Oct-2019 07:36 by Danuta Ngo (RN) [facility] Preop Checkliston 10-08-2019 Preop Checklist Preop Checklist: Preop Checklist: Arrival [id number] Arrival Time06:10 Procedure TypeLT ARM MELANOMA REOVED Temperature C37.4 degrees C Temperature F99.3 degrees F Heart Rate74 beats per minute Respiratory Rate16 breath per minute Blood Pressure Esachiwc067 mm/Hg Blood Pressure Obzwtllzb92 mm/Hg NPO [id number] 23:00 ID Band Onyes Allergy Bandyes Consent Signedyes H&P Completeyes Anesthesia Assessment Completedyes EKG Performedyes Chest X-Ray Performednot ordered HCG Urine TestN/A Chlorhexadine Bath Givennot applicable Nasal Antiseptic Appliednot applicable Hair Washedyes Soap and water bath with hair shampoo the night before surgeryyes Hat placed on infant prior to transportnot applicable SCD's Appliedyes CRISTINE [...] Language / CommunicationEnglish Electronic Signatures: Danuta Ngo (VENANCIO) (Signed 08-Oct-2019 07:39) Authored: Preop Checklist Last Updated: 08-Oct-2019 07:39 by Danuta Ngo (RN) Normal [facility] [place]CRO[place]UM[place] 9 Creatinine mass conc (U) 59.2 mg/dL Normal [facility] Comment on above: Order Comment: THE M ICROALBUMIN IS < 6.0 THEREFORE THE MICROALBUMIN/CREATININE RATIO IS UNDETECTABLE. Performed By: #### 8 00 #### [facility] Unless Otherwise Noted [address] [facility] [address] [place] [address] / COLA #4724/CLIA # [id number] Microalbumin <6.0 Normal 0.0-30.0 [facility] Comment on above: Order Comment: THE M ICROALBUMIN IS < 6.0 THEREFORE THE MICROALBUMIN/CREATININE RATIO IS UNDETECTABLE. Performed By: #### 8 00 #### [facility] Unless Otherwise Noted [address] [address] / COLA #4724/CLIA # [id number] Urine A/C Ratio -99.0 mg/g Low 0.0-30.0 [facility] Comment on above: Order Comment: THE M ICROALBUMIN IS < 6.0 THEREFORE THE MICROALBUMIN/CREATININE RATIO IS UNDETECTABLE. Performed By: #### 8 00 #### [facility] Unless Otherwise Noted [address] [address] / COLA #4724/CLIA # [id number] LIPID PANEL (INCLUDES CALCUL ATED LDL)on 07-08-2018 Cholesterol in LDL/Cholesterol in HDL mass ratio 1.8 Normal <3.5 [facility] Comment on above: Performed By: #### 3 29 #### [facility] Unless Otherwise Noted [address] [address] / COLA #4724/CLIA # [id number] Cholesterol mass conc 165 mg/dL Normal <200 End [facility] [place] Comment on above: Performed By: #### 3 29 #### [facility] Unless Otherwise Noted [address] [address] / COLA #4724/CLIA # [id number] Cholesterol.total/Chol esterol in HDL mass ratio 3.8 {ratio} Normal <5 [facility] Comment on above: Result Comment: [facility]. [address] [place] [address] CLIA No. [id number] CAP Accreditation No. [id number] Picture Frames Inspector: Ray Tate M.D. Performed By: #### 3 29 #### [facility] Unless Otherwise Noted [address] [address] / COLA #4724/CLIA # [id number] HDL-CHOL 43.1 mg/dL Normal >39 [facility] Comment on above: Result Comment: HDL <40 mg/dL IS A RISK FACTOR FOR CORONARY HEART DISEASE. HDL >60 mg/dL IS A NEGATIVE RISK FACTOR FOR CORONARY HEART DISEASE. Performed By: #### 3 29 #### [facility] Unless Otherwise Noted [address] [address] / COLA #4724/CLIA # [id number] LDL-CHOL, CALCULATED 76 mg/dL Normal <130 [facility] Comment on above: Result Comment: LDL CHOLESTEROL REFERENCE RANGE FOR 0-19 YEARS: DESIRABLE <110 mg/dL, BORDERLINE 110-129, HIGH RISK >130 LDL CHOLESTEROL REFERENCE RANGE FOR ADULTS: DESIRABLE <100 mg/dL, BORDERLINE 130-159, HIGH RISK >160 REFERENCE RANGES REVISED 10/13/15 ACCORDING TO NCEP GUIDELINES Performed By: #### 3 29 #### [facility] Unless Otherwise Noted [address] [address] / COLA #4724/CLIA # [id number] Triglyceride mass conc 232 mg/dL High <150 [facility] Comment on above: Performed By: #### 3 29 #### [facility] Unless Otherwise Noted [address] [place] [address] / COLA #4724/CLIA # [id number] VLDL-CHOL, CALCULATED 46 mg/dL High <30 End [facility] Comment on above: Performed By: #### 3 29 #### [facility] [place] Unless Otherwise Noted [address] [facility] [address] [place] [address] / COLA #8224/CLIA # [id number] PTH, Intacton 03-07-2018 PTH, Intact 21.59 pg/mL Normal 15.0-65.0 [facility] Comment on above: Result Comment: SAMP LES FROM PATIENTS ROUTINELY RECEIVING HIGH DOSE BIOTIN THERAPY MAY SHOW FALSELY DEPRESSED RESULTS. ADDITIONAL INFORMATION MAY BE REQUIRED FOR DIAGNOSIS. Performed By: #### R ENP, URTPRT, MG, UAMIC, URI ####[address] [place] [address] #### CBC, PTHNCA, VD25 ####[facility] [address] [place], [place] [id number] Vitamin D 25 OHon 03-07-2018 Vitamin D 25 [place] 25.9 ng/mL Low 30.0-100.0 [facility] Comment on above: Result Comment: Refe rence Range:Vitamin D status Range Deficiency <20 ng/mL Mild Deficiency 20-30 ng/mL Sufficiency 30-100 ng/mL Toxicity >100 ng/mL Performed By: #### R ENP, URTPRT, MG, UAMIC, URI ####[address] [place] [address] #### CBC, PTHNCA, VD25 ####[facility] [address] [place], [place] [id number] CBCon 03-06-2018 Erythrocyte distribution width Auto Ratio (RBC) 14.9 % High 11.8-14.4 [facility] Comment on above: Performed By: #### U RI, UAMIC, URCRE, RENP, MG, CBC ####[address] [place] [address] #### VD25, PTHNCA ####[address] [address] Hematocrit Auto Volume Fraction (Bld) 43.7 % Normal 36.3-47.1 [facility] Comment on above: Performed By: #### U RI, UAMIC, URCRE, RENP, MG, CBC ####[address] [place] [address] #### VD25, PTHNCA ####[address] [address] Hemoglobin mass conc (Bld) 13.5 g/dL Normal 11.9-15.1 [facility] Comment on above: Performed By: #### U RI, UAMIC, URCRE, RENP, MG, CBC ####[address] [place] [address] #### VD25, PTHNCA ####[address] [address] MCH Auto Entitic mass (RBC) 27.2 pg Normal 25.2-33.5 [facility] Comment on above: Performed By: #### U RI, UAMIC, URCRE, RENP, MG, CBC ####[address] [place] [address] #### VD25, PTHNCA ####[address] [address] MCHC Auto mass conc (RBC) 30.9 g/dL Normal 28.4-34.8 [facility] Comment on above: Performed By: #### U RI, UAMIC, URCRE, RENP, MG, CBC ####[address] [place] [address] #### VD25, PTHNCA ####[address] [address] MCV Auto Entitic volume (RBC) 87.9 fL Normal 82.6-102.9 [facility] Comment on above: Performed By: #### U RI, UAMIC, URCRE, RENP, MG, CBC ####[address] [place] [address] #### VD25, PTHNCA ####[address] [address] NRBC Automated 0.0 per 100 WBC Normal 0.0 [facility] Comment on above: Performed By: #### U RI, UAMIC, URCRE, RENP, MG, CBC ####[address] [place] [address] #### VD25, PTHNCA ####[address] [address] Platelet mean volume Auto Entitic volume (Bld) 10.1 fL Normal 8.1-13.5 [facility] Comment on above: Performed By: #### U RI, UAMIC, URCRE, RENP, MG, CBC ####[address] [place] [address] #### VD25, PTHNCA ####[address] [address] Platelets Auto #/vol (Bld) 431 10*3/uL Normal 138-453 [facility] Comment on above: Performed By: #### U RI, UAMIC, URCRE, RENP, MG, CBC ####[address] [place] [address] #### VD25, PTHNCA ####[address] [address] RBC Auto #/vol (Bld) 4.97 10*6/uL Normal 3.95-5.11 [facility] Comment on above: Performed By: #### U RI, UAMIC, URCRE, RENP, MG, CBC ####[address] [place] [address] #### VD25, PTHNCA ####[address] [address] WBC Auto #/vol (Bld) 10.2 10*3/uL Normal 3.5-11.3 [facility] Comment on above: Performed By: #### U RI, UAMIC, URCRE, RENP, MG, CBC ####[address] [place] [address] #### VD25, PTHNCA ####[address] [address] Creatinine,Random Uron 03-06 Creatinine mass conc 37.0 mg/dL Normal 28.0-217.0 [facility] Comment on above: Performed By: #### R ENP, URTPRT, MG, UAMIC, URI ####[address] [place] [address] #### CBC, PTHNCA, VD25 ####[address] [address] Creatinine mass conc 36.3 mg/dL Normal 28.0-217.0 [facility] Comment on above: Performed By: #### U RI, UAMIC, URCRE, RENP, MG, CBC ####[address] [place] [address] #### VD25, PTHNCA ####[address] [address] Magnesiumon 03-06-2018 Magnesium mass conc 2.2 mg/dL Normal 1.6-2.6 [facility] Comment on above: Performed By: #### R ENP, URTPRT, MG, UAMIC, URI ####[address] [place] [address] #### CBC, PTHNCA, VD25 ####[address] [place], [place] [address] Renal Function Panelon 03-06 (cont.) Normal [facility] Comment on above: Result Comment: Aver age GFR for 60-69 years old: 85 mL/min/1.73sq mChronic Kidney Disease: <60 mL/min/1.73sq mKidney failure: <15 mL/min/1.73sq meGFR calculated using average adult body mass. Additional eGFR calculator available at:http://[email or web address].com.Talyst/multiple_crcl_2011.htm Performed By: #### R ENP, URTPRT, MG, UAMIC, URI ####[address] [place] [address] #### CBC, PTHNCA, VD25 ####[address] [place], [place] [address] Albumin mass conc 4.0 g/dL Normal 3.5-5.2 [facility] Comment on above: Performed By: #### R ENP, URTPRT, MG, UAMIC, URI ####[address] [place] [address] #### CBC, PTHNCA, VD25 ####[address] [place] [address] Anion gap 3 molar conc 12 mmol/L Normal 9-17 [facility] Comment on above: Performed By: #### R ENP, URTPRT, MG, UAMIC, URI ####[address] [place] [address] #### CBC, PTHNCA, VD25 ####[facility] [place] [address] BUN/CRE Ratio 18 Normal 9-[address] [facility] Comment on above: Performed By: #### R ENP, URTPRT, MG, UAMIC, URI ####[address] [place] [address] #### CBC, PTHNCA, VD25 ####[address] [address] Calcium mass conc 9.3 mg/dL Normal 8.6-10.4 [facility] Comment on above: Performed By: #### R ENP, URTPRT, MG, UAMIC, URI ####[address] [place] [address] #### CBC, PTHNCA, VD25 ####[address] [address] Chloride molar conc 104 mmol/L Normal 98-107 [facility] Comment on above: Performed By: #### R ENP, URTPRT, MG, UAMIC, URI ####[address] [place] [address] #### CBC, PTHNCA, VD25 ####[address] [place] [address] CO2 molar conc 24 mmol/L Normal 20-31 [facility] Comment on above: Performed By: #### R ENP, URTPRT, MG, UAMIC, URI ####[address] [place] [address] #### CBC, PTHNCA, VD25 ####[address] [place] [address] Creatinine mass conc 1.47 mg/dL High 0.50-0.90 [facility] Comment on above: Performed By: #### R ENP, URTPRT, MG, UAMIC, URI ####[address] [place] [address] #### CBC, PTHNCA, VD25 ####[address] [address] GFR, Amer 43 mL/min Low >60 [facility] Comment on above: Performed By: #### R ENP, URTPRT, MG, UAMIC, URI ####[address] [place] [address] #### CBC, PTHNCA, VD25 ####[address] [address] GFR,non Amer 36 mL/min Low >60 [facility] Comment on above: Performed By: #### R ENP, URTPRT, MG, UAMIC, URI ####[address] [place] [address] #### CBC, PTHNCA, VD25 ####[address] [address] Glucose mass conc 63 mg/dL Low 70-99 [facility] Comment on above: Performed By: #### R ENP, URTPRT, MG, UAMIC, URI ####[address] [place] [address] #### CBC, PTHNCA, VD25 ####[address] [address] Phosphorus, Inorg. 3.5 mg/dL Normal 2.6-4.5 [facility] Comment on above: Performed By: #### R ENP, URTPRT, MG, UAMIC, URI ####[address] [place], [place] [address] #### CBC, PTHNCA, VD25 ####[address] [place] [address] Potassium molar conc 4.0 mmol/L Normal 3.7-5.3 [facility] Comment on above: Performed By: #### R ENP, URTPRT, MG, UAMIC, URI ####[address] [place] [address] #### CBC, PTHNCA, VD25 ####[address] [address] Sodium molar conc 140 mmol/L Normal 135-144 [facility] Comment on above: Performed By: #### R ENP, URTPRT, MG, UAMIC, URI ####[address] [place], [place] [address] #### CBC, PTHNCA, VD25 ####[address] [address] Staging: Normal [facility] Comment on above: Result Comment: Stag e 1: Some kidney damage normal GFRStage 2: Mild kidney damage GFR 60-89Stage 3: Moderate kidney damage GFR 30-59Stage 4: Severe kidney damage GFR 15-29Stage 5: Severe kidney damage GFR <15ESRD - chronic treatment by dialysis or transplant Performed By: #### R ENP, URTPRT, MG, UAMIC, URI ####[address] [place], [place] [address] #### CBC, PTHNCA, VD25 ####[address] [address] Urea nitrogen mass conc 27 mg/dL High 8-23 [facility] Comment on above: Performed By: #### R ENP, URTPRT, MG, UAMIC, URI ####[address] [place] [address] #### CBC, PTHNCA, VD25 ####[address] [address] Uric Acidon 03-06-2018 Urate mass conc 3.7 mg/dL Normal 2.4-5.7 [facility] Comment on above: Performed By: #### R ENP, URTPRT, MG, UAMIC, URI ####[address] [place] [address] #### CBC, PTHNCA, VD25 ####[address] [address] Urinalysis w/ Microon 2017 ----- Normal [facility] Comment on above: Performed By: #### R ENP, URTPRT, MG, UAMIC, URI ####[address] [place] [address] #### CBC, PTHNCA, VD25 ####[address] [address] Acetoacetic Acid,Ur Negative Normal NEG [facility] Comment on above: Performed By: #### R ENP, URTPRT, MG, UAMIC, URI ####[address] , [facility] #### CBC, PTHNCA, VD25 ####[address] [address] Bacteria TRACE Abnormal NONE [facility] Comment on above: Performed By: #### R ENP, URTPRT, MG, UAMIC, URI ####[address] [place] [address] #### CBC, PTHNCA, VD25 ####[address] [address] Bilirubin, SemiQt,Ur Negative Normal NEG [facility] Comment on above: Performed By: #### R ENP, URTPRT, MG, UAMIC, URI ####[address] [place] [address] #### CBC, PTHNCA, VD25 ####[address] [address] Color YELLOW Normal YEL [facility] Comment on above: Performed By: #### R ENP, URTPRT, MG, UAMIC, URI ####[address] [place] [address] #### CBC, PTHNCA, VD25 ####[address] [address] Epithelial cells 0 TO 2 Normal 0-25 [facility] Comment on above: Performed By: #### R ENP, URTPRT, MG, UAMIC, URI ####[address] [place] [address] #### CBC, PTHNCA, VD25 ####[address] [address] Glucose,Semi-qnt,Ur Negative Normal NEG [facility] Comment on above: Performed By: #### R ENP, URTPRT, MG, UAMIC, URI ####[address] [place] [address] #### CBC, PTHNCA, VD25 ####[address] [address] Hemoglobin, Ur Negative Normal NEG [facility] Comment on above: Performed By: #### R ENP, URTPRT, MG, UAMIC, URI ####[address] [place] [address] #### CBC, PTHNCA, VD25 ####[address] [address] Leuckocyte Esterase SMALL Abnormal NEG [facility] Comment on above: Performed By: #### R ENP, URTPRT, MG, UAMIC, URI ####[address] [place] [address] #### CBC, PTHNCA, VD25 ####[address] [address] Mucus Strands TRACE Abnormal NONE [facility] Comment on above: Performed By: #### R ENP, URTPRT, MG, UAMIC, URI ####[address] [place] [address] #### CBC, PTHNCA, VD25 ####[address] [address] Nitrite,Ur Negative Normal NEG [facility] Comment on above: Performed By: #### R ENP, URTPRT, MG, UAMIC, URI ####[address] [place] [address] #### CBC, PTHNCA, VD25 ####[address] [address] PH,Ur 5.5 Normal 5.0-9.0 [facility] Comment on above: Performed By: #### R ENP, URTPRT, MG, UAMIC, URI ####[address] [place] [address] #### CBC, PTHNCA, VD25 ####[address] [address] Protein mass conc Negative Normal NEG [facility] Comment on above: Performed By: #### R ENP, URTPRT, MG, UAMIC, URI ####[address] [place] [address] #### CBC, PTHNCA, VD25 ####[address] [address] RBC Test strip #/vol (U) 0 TO 2 Normal 0-2 [facility] Comment on above: Performed By: #### R ENP, URTPRT, MG, UAMIC, URI ####[address] [place] [address] #### CBC, PTHNCA, VD25 ####[address] [address] Spec. [place],Ur 1.015 Normal 1.010-1.020 [facility] Comment on above: Performed By: #### R ENP, URTPRT, MG, UAMIC, URI ####[address] [place] [address] #### CBC, PTHNCA, VD25 ####[address] [address] Turbidity CLEAR Normal CLEAR [facility] Comment on above: Performed By: #### R ENP, URTPRT, MG, UAMIC, URI ####[address] [place] [address] #### CBC, PTHNCA, VD25 ####[address] [address] Urine WBC's 0 TO 2 Normal 0-5 [facility] Comment on above: Performed By: #### R ENP, URTPRT, MG, UAMIC, URI ####[address] [place] [address] #### CBC, PTHNCA, VD25 ####[address] [address] Urobilinogen,Ur Normal Normal NORM [facility] Comment on above: Performed By: #### R ENP, URTPRT, MG, UAMIC, URI ####[address] [place] [address] #### CBC, PTHNCA, VD25 ####[address] [place] [address] Amorphous Sediment NOT REPORTED Normal NONE [facility] Comment on above: Performed By: #### R ENP, URTPRT, MG, UAMIC, URI ####[address] [place] [address] #### CBC, PTHNCA, VD25 ####[address] [address] Casts NOT REPORTED Normal [facility] Comment on above: Performed By: #### R ENP, URTPRT, MG, UAMIC, URI ####[address] [place] [address] #### CBC, PTHNCA, VD25 ####[address] [address] Comment NOT REPORTED Normal [facility] Comment on above: Performed By: #### R ENP, URTPRT, MG, UAMIC, URI ####[address] [place] [address] #### CBC, PTHNCA, VD25 ####[address] [place] [address] Crystals NOT REPORTED Normal NONE [facility] Comment on above: Performed By: #### R ENP, URTPRT, MG, UAMIC, URI ####[address] [place] [address] #### CBC, PTHNCA, VD25 ####[address] [address] Epithelial, Renal NOT REPORTED Normal 0 [facility] Comment on above: Performed By: #### R ENP, URTPRT, MG, UAMIC, URI ####[address] [place] [address] #### CBC, PTHNCA, VD25 ####[address] [address] Other Observations NOT REPORTED Normal NREQ [facility] Comment on above: Performed By: #### R ENP, URTPRT, MG, UAMIC, URI ####[address] [place] [address] #### CBC, PTHNCA, VD25 ####[address] [address] Trichomonas NOT REPORTED Normal NONE [facility] Comment on above: Performed By: #### R ENP, URTPRT, MG, UAMIC, URI ####[address] [place] [address] #### CBC, PTHNCA, VD25 ####[address] [address] Yeast NOT REPORTED Normal NONE [facility] Comment on above: Performed By: #### R ENP, URTPRT, MG, UAMIC, URI ####[address] [place] [address] #### CBC, PTHNCA, VD25 ####[address] [address] PTH, Intacton 09-20-2017 PTH, Intact 17.31 pg/mL Normal 15.0-65.0 [facility] Comment on above: Result Comment: SAMP LES FROM PATIENTS ROUTINELY RECEIVING HIGH DOSE BIOTIN THERAPY MAY SHOW FALSELY DEPRESSED RESULTS. ADDITIONAL INFORMATION MAY BE REQUIRED FOR DIAGNOSIS.Performed at [address] [address] Performed By: #### R ENP, URTPRT, MG, UAMIC, URI ####[address] [place], [place] [address] #### CBC, PTHNCA, VD25 ####[address] [address] Vitamin D 25 OHon 09-20-2017 Vitamin D 25 [place] 21.8 ng/mL Low 30.0-100.0 [facility] Comment on above: Result Comment: Refe rence Range:Vitamin D status Range Deficiency <20 ng/mL Mild Deficiency 20-30 ng/mL Sufficiency 30-100 ng/mL Toxicity >100 ng/mLPerformed at [address] [address] Performed By: #### R ENP, URTPRT, MG, UAMIC, URI ####[address] [place] [address] #### CBC, PTHNCA, VD25 ####[address] [address] [facility] Erythrocyte distribution width Auto Ratio (RBC) 15.8 % High 11.8-14.4 [facility] Comment on above: Performed By: #### R ENP, URTPRT, MG, UAMIC, URI ####[address] [place] [address] #### CBC, PTHNCA, VD25 ####[address] [address] Hematocrit Auto Volume Fraction (Bld) 40.2 % Normal 36.3-47.1 [facility] Comment on above: Performed By: #### R ENP, URTPRT, MG, UAMIC, URI ####[address] [place] [id number] #### CBC, PTHNCA, VD25 ####[address] [id number] Hemoglobin mass conc (Bld) 12.5 g/dL Normal 11.9-15.1 [facility] Comment on above: Performed By: #### R ENP, URTPRT, MG, UAMIC, URI ####[address] [place] [address] #### CBC, PTHNCA, VD25 ####[address] [id number] MCH Auto Entitic mass (RBC) 27.7 pg Normal 25.2-33.5 [facility] Comment on above: Performed By: #### R ENP, URTPRT, MG, UAMIC, URI ####[address] [place] [address] #### CBC, PTHNCA, VD25 ####[address] [address] MCHC Auto mass conc (RBC) 31.1 g/dL Normal 28.4-34.8 [facility] Comment on above: Performed By: #### R ENP, URTPRT, MG, UAMIC, URI ####[address] [place] [address] #### CBC, PTHNCA, VD25 ####[address] [address] MCV Auto Entitic volume (RBC) 88.9 fL Normal 82.6-102.9 [facility] Comment on above: Performed By: #### R ENP, URTPRT, MG, UAMIC, URI ####[address] [place] [id number] #### CBC, PTHNCA, VD25 ####[address] [address] NRBC Automated 0.0 per 100 WBC Normal 0.0 [facility] Comment on above: Result Comment: Perf ormed at [address] [address] Performed By: #### R ENP, URTPRT, MG, UAMIC, URI ####[address] [place] [id number] #### CBC, PTHNCA, VD25 ####[address] [address] Platelet mean volume Auto Entitic volume (Bld) 10.0 fL Normal 8.1-13.5 [facility] Comment on above: Performed By: #### R ENP, URTPRT, MG, UAMIC, URI ####[address] [place] [id number] #### CBC, PTHNCA, VD25 ####[address] [address] Platelets Auto #/vol (Bld) 392 10*3/uL Normal 138-453 [facility] Comment on above: Performed By: #### R ENP, URTPRT, MG, UAMIC, URI ####[address] [place] [address] #### CBC, PTHNCA, VD25 ####[address] [address] RBC Auto #/vol (Bld) 4.52 10*6/uL Normal 3.95-5.11 [facility] Comment on above: Performed By: #### R ENP, URTPRT, MG, UAMIC, URI ####[address] [place] [address] #### CBC, PTHNCA, VD25 ####[address] [address] WBC Auto #/vol (Bld) 10.3 10*3/uL Normal 3.5-11.3 [facility] Comment on above: Performed By: #### R ENP, URTPRT, MG, UAMIC, URI ####[address] [place] [address] #### CBC, PTHNCA, VD25 ####[address] [address] Magnesiumon 09-19-2017 Magnesium mass conc 2.0 mg/dL Normal 1.6-2.6 [facility] Comment on above: Result Comment: Perf ormed at [address] [place] [address] Performed By: #### R ENP, URTPRT, MG, UAMIC, URI ####[address] [place] [address] #### CBC, PTHNCA, VD25 ####[address] [address] Protein,Tot,Ashton Uron 2017 Creatinine mass conc 142.4 mg/dL Normal 28.0-217.0 [facility] Comment on above: Performed By: #### R ENP, URTPRT, MG, UAMIC, URI ####[address] [place], [place] [id number] #### CBC, PTHNCA, VD25 ####[address] [address] Protein mass conc 7 mg/dL Normal [facility] Comment on above: Result Comment: No n ormal range established. Performed By: #### R ENP, URTPRT, MG, UAMIC, URI ####[address] [place] [address] #### CBC, PTHNCA, VD25 ####[address] [address] TP/Cre Ratio 0.05 Normal 0.00-0.20 [facility] Comment on above: Result Comment: Perf ormed at [address] [place] [address] ([phone] Performed By: #### R ENP, URTPRT, MG, UAMIC, URI ####[address] [facility] #### CBC, PTHNCA, VD25 ####[address] [id number] Renal Function Panelon 09-19 (cont.) Normal [facility] Comment on above: Result Comment: Aver age GFR for 60-69 years old: 85 mL/min/1.73sq mChronic Kidney Disease: <60 mL/min/1.73sq mKidney failure: <15 mL/min/1.73sq meGFR calculated using average adult body mass. Additional eGFR calculator available at:http://[email or web address].com.Talyst/multiple_crcl_2012.htm Performed By: #### R ENP, URTPRT, MG, UAMIC, URI ####[address] [place] [id number] #### CBC, PTHNCA, VD25 ####[place] [address] [place], [place] [id number] Albumin mass conc 4.0 g/dL Normal 3.5-5.2 [facility] Comment on above: Performed By: #### R ENP, URTPRT, MG, UAMIC, URI ####[address] [place] [id number] #### CBC, PTHNCA, VD25 ####[address] [address] Anion gap 3 molar conc 11 mmol/L Normal 9-17 [facility] Comment on above: Performed By: #### R ENP, URTPRT, MG, UAMIC, URI ####[address] [place] [address] #### CBC, PTHNCA, VD25 ####[address] [address] BUN/CRE Ratio 25 High 9-[address] [facility] Comment on above: Performed By: #### R ENP, URTPRT, MG, UAMIC, URI ####[address] [place] [address] #### CBC, PTHNCA, VD25 ####[address] [address] Calcium mass conc 9.3 mg/dL Normal 8.6-10.4 [facility] Comment on above: Performed By: #### R ENP, URTPRT, MG, UAMIC, URI ####[address] [place] [address] #### CBC, PTHNCA, VD25 ####[address] [address] Chloride molar conc 102 mmol/L Normal 98-107 [facility] Comment on above: Performed By: #### R ENP, URTPRT, MG, UAMIC, URI ####[address] [place] [address] #### CBC, PTHNCA, VD25 ####[address] [address] CO2 molar conc 27 mmol/L Normal 20-31 [facility] Comment on above: Performed By: #### R ENP, URTPRT, MG, UAMIC, URI ####[address] [place] [address] #### CBC, PTHNCA, VD25 ####[address] [address] Creatinine mass conc 1.00 mg/dL High 0.50-0.90 [facility] Comment on above: Performed By: #### R ENP, URTPRT, MG, UAMIC, URI ####[address] [place] [address] #### CBC, PTHNCA, VD25 ####[address] [address] GFR, Amer >60 Normal >60 [facility] Comment on above: Performed By: #### R ENP, URTPRT, MG, UAMIC, URI ####[address] [place] [address] #### CBC, PTHNCA, VD25 ####[address] [address] GFR,non Amer 55 mL/min Low >60 [facility] Comment on above: Performed By: #### R ENP, URTPRT, MG, UAMIC, URI ####[address] [place] [address] #### CBC, PTHNCA, VD25 ####[address] [address] Glucose mass conc 188 mg/dL High 70-99 [facility] Comment on above: Performed By: #### R ENP, URTPRT, MG, UAMIC, URI ####[address] [place] [address] #### CBC, PTHNCA, VD25 ####[address] [address] Phosphorus, Inorg. 3.3 mg/dL Normal 2.6-4.5 [facility] Comment on above: Performed By: #### R ENP, URTPRT, MG, UAMIC, URI ####[address] [place], [place] 9[address]383 #### CBC, PTHNCA, VD25 ####[address] [address] Potassium molar conc 3.8 mmol/L Normal 3.7-5.3 [facility] Comment on above: Performed By: #### R ENP, URTPRT, MG, UAMIC, URI ####[address] [place], [place] [address] #### CBC, PTHNCA, VD25 ####[address] [address] Sodium molar conc 140 mmol/L Normal 135-144 [facility] Comment on above: Performed By: #### R ENP, URTPRT, MG, UAMIC, URI ####[address] [place], [place] [address] #### CBC, PTHNCA, VD25 ####[address] [address] Staging: Normal [facility] Comment on above: Result Comment: Stag e 1: Some kidney damage normal GFRStage 2: Mild kidney damage GFR 60-89Stage 3: Moderate kidney damage GFR 30-59Stage 4: Severe kidney damage GFR 15-29Stage 5: Severe kidney damage GFR <15ESRD - chronic treatment by dialysis or transplantPerformed at [address] [place] [address] ([phone] Performed By: #### R ENP, URTPRT, MG, UAMIC, URI ####[address] [place], [place] [address]883 #### CBC, PTHNCA, VD25 ####[address] [id number] Urea nitrogen mass conc 25 mg/dL High 8-23 [facility] Comment on above: Performed By: #### R ENP, URTPRT, MG, UAMIC, URI ####[address] [place], [place] [address]83 #### CBC, PTHNCA, VD25 ####[address] [address] Uric Acidon 09-19-2017 Urate mass conc 4.9 mg/dL Normal 2.4-5.7 [facility] Comment on above: Result Comment: Perf ormed at [address] [place] [address] ([phone] Performed By: #### R ENP, URTPRT, MG, UAMIC, URI ####[address] [place], [place] [address] #### CBC, PTHNCA, VD25 ####[address] [address] Urinalysis w/ Microon 2017 ----- Normal [facility] Comment on above: Performed By: #### R ENP, URTPRT, MG, UAMIC, URI ####[address] [place], [place] [address] #### CBC, PTHNCA, VD25 ####[address] [address] Acetoacetic Acid,Ur Negative Normal NEG [facility] Comment on above: Performed By: #### R ENP, URTPRT, MG, UAMIC, URI ####[address] [place] [address] #### CBC, PTHNCA, VD25 ####[address] [address] Bacteria TRACE Abnormal NONE [facility] Comment on above: Performed By: #### R ENP, URTPRT, MG, UAMIC, URI ####[address] [place] [address] #### CBC, PTHNCA, VD25 ####[address] [address] Bilirubin, SemiQt,Ur Negative Normal NEG [facility] Comment on above: Performed By: #### R ENP, URTPRT, MG, UAMIC, URI ####[address] [place] [address] #### CBC, PTHNCA, VD25 ####[address] [address] Color YELLOW Normal YEL [facility] Comment on above: Performed By: #### R ENP, URTPRT, MG, UAMIC, URI ####[address] [place] [address] #### CBC, PTHNCA, VD25 ####[address] [address] Epithelial cells 0 TO 2 Normal 0-25 [facility] Comment on above: Performed By: #### R ENP, URTPRT, MG, UAMIC, URI ####[address] [place] [address] #### CBC, PTHNCA, VD25 ####[address] [address] Glucose,Semi-qnt,Ur Negative Normal NEG [facility] Comment on above: Performed By: #### R ENP, URTPRT, MG, UAMIC, URI ####[address] [place] [address] #### CBC, PTHNCA, VD25 ####[address] [address] Hemoglobin, Ur Negative Normal NEG [facility] Comment on above: Performed By: #### R ENP, URTPRT, MG, UAMIC, URI ####[address] [place] [address] #### CBC, PTHNCA, VD25 ####[address] [address] Leuckocyte Esterase Negative Normal NEG [facility] Comment on above: Performed By: #### R ENP, URTPRT, MG, UAMIC, URI ####[address] [place] [address] #### CBC, PTHNCA, VD25 ####[address] [address] Mucus Strands TRACE Abnormal NONE [facility] Comment on above: Result Comment: Perf ormed at [address] [place] [address] Performed By: #### R ENP, URTPRT, MG, UAMIC, URI ####[address] [place] [address] #### CBC, PTHNCA, VD25 ####[address] [address] Nitrite,Ur Negative Normal NEG [facility] Comment on above: Performed By: #### R ENP, URTPRT, MG, UAMIC, URI ####[address] [place] [address] #### CBC, PTHNCA, VD25 ####[address] [address] PH,Ur 6.0 Normal 5.0-9.0 [facility] Comment on above: Performed By: #### R ENP, URTPRT, MG, UAMIC, URI ####[address] [place] [address] #### CBC, PTHNCA, VD25 ####[address] [address] Protein mass conc Negative Normal NEG [facility] Comment on above: Performed By: #### R ENP, URTPRT, MG, UAMIC, URI ####[address] [place] [address] #### CBC, PTHNCA, VD25 ####[address] [address] RBC Test strip #/vol (U) 0 TO 2 Normal 0-2 [facility] Comment on above: Performed By: #### R ENP, URTPRT, MG, UAMIC, URI ####[address] [place] [id number] #### CBC, PTHNCA, VD25 ####[address] [address] Spec. [place],Ur 1.025 High 1.010-1.020 [facility] Comment on above: Performed By: #### R ENP, URTPRT, MG, UAMIC, URI ####[address] [place] [address] #### CBC, PTHNCA, VD25 ####[address] [address] Turbidity CLEAR Normal CLEAR [facility] Comment on above: Performed By: #### R ENP, URTPRT, MG, UAMIC, URI ####[address] [place] [address] #### CBC, PTHNCA, VD25 ####[address] [address] Urine WBC's 0 TO 2 Normal 0-5 [facility] Comment on above: Performed By: #### R ENP, URTPRT, MG, UAMIC, URI ####[address] [place] [id number] #### CBC, PTHNCA, VD25 ####[address] [address] Urobilinogen,Ur Normal Normal NORM [facility] Comment on above: Performed By: #### R ENP, URTPRT, MG, UAMIC, URI ####[address] [place] [id number] #### CBC, PTHNCA, VD25 ####[address] [address] Amorphous Sediment NOT REPORTED Normal NONE [facility] Comment on above: Performed By: #### R ENP, URTPRT, MG, UAMIC, URI ####[address] [place] [address] #### CBC, PTHNCA, VD25 ####[address] [address] Casts NOT REPORTED Normal [facility] Comment on above: Performed By: #### R ENP, URTPRT, MG, UAMIC, URI ####[address] [place] [address] #### CBC, PTHNCA, VD25 ####[address] [address] Comment NOT REPORTED Normal [facility] Comment on above: Performed By: #### R ENP, URTPRT, MG, UAMIC, URI ####[address] [place] [address] #### CBC, PTHNCA, VD25 ####[address] [address] Crystals NOT REPORTED Normal NONE [facility] Comment on above: Performed By: #### R ENP, URTPRT, MG, UAMIC, URI ####[address] [place] [address] #### CBC, PTHNCA, VD25 ####[address] [address] Epithelial, Renal NOT REPORTED Normal 0 [facility] Comment on above: Performed By: #### R ENP, URTPRT, MG, UAMIC, URI ####[address] [place] [address] #### CBC, PTHNCA, VD25 ####[address] [address] Other Observations NOT REPORTED [facility] Performed By: #### R ENP, URTPRT, MG, UAMIC, URI ####[address] [place] [address] #### CBC, PTHNCA, VD25 ####[address] [address] Trichomonas NOT REPORTED Normal NONE [facility] Comment on above: Performed By: #### R ENP, URTPRT, MG, UAMIC, URI ####[address] [place] [address] #### CBC, PTHNCA, VD25 ####[address] [id number] Yeast NOT REPORTED Normal NONE [facility] Comment on above: Performed By: #### R ENP, URTPRT, MG, UAMIC, URI ####[address] [place] [address] #### CBC, PTHNCA, VD25 ####[address] [place], [place] [id number] Vital Signs Date Time Vital Sign Value Performing Clinician Facility 06-18-2024 11:34-0500 Body height 160.7 cm Rajesh Mercer MD Work Phone: [facility] 06-18-2024 11:34-0500 Body mass index (BMI) [Ratio] 48.33 kg/m2 Rajesh Mercer MD Work Phone: [facility] 06-18-2024 11:34-0500 Body temperature 98.71 [degF] Rajesh Mercer MD Work Phone: [facility] 06-18-2024 11:34-0500 Body weight 124.74 kg Rajesh Mercer MD Work Phone: [facility] 06-18-2024 11:34-0500 Diastolic blood pressure 76 mm[Hg] Rajesh Mercer MD Work Phone: [facility] 06-18-2024 11:34-0500 Heart rate 83 /min Rajesh Mercer MD Work Phone: [facility] 06-18-2024 11:34-0500 SaO2% (BldA) [Mass fraction] 97 % Rajesh Mercer MD Work Phone: [facility] 06-18-2024 11:34-0500 Systolic blood pressure 128 mm[Hg] Rajesh Mercer MD Work Phone: [facility] 04-19-2024 15:50-0500 Body height 160.7 cm Rajesh Mercer MD Work Phone: [facility] 04-19-2024 15:50-0500 Body mass index (BMI) [Ratio] 48.86 kg/m2 Rajesh Mercer MD Work Phone: [facility] 04-19-2024 15:50-0500 Body weight 126.1 kg Rajesh Mercer MD Work Phone: [facility] 04-19-2024 15:50-0500 Diastolic blood pressure 70 mm[Hg] Rajesh Mercer MD Work Phone: [facility] 04-19-2024 15:50-0500 Heart rate 90 /min Rajesh Mercer MD Work Phone: [facility] 04-19-2024 15:50-0500 SaO2% (BldA) [Mass fraction] 96 % Rajesh Mercer MD Work Phone: [facility] 04-19-2024 15:50-0500 Systolic blood pressure 122 mm[Hg] Rajesh Mercer MD Work Phone: [facility] 02-26-2024 12:05-0400 Body mass index (BMI) [Ratio] 48.22 kg/m2 Gina Bustillo MD Work Phone: [facility] 02-26-2024 12:05-0400 Body weight 127.42 kg Gina Bustillo MD Work Phone: [facility] 02-26-2024 12:05-0400 Diastolic blood pressure 81 mm[Hg] Gina Bustillo MD Work Phone: [facility] 02-26-2024 12:05-0400 Heart rate 81 /min Gina Bustillo MD Work Phone: [facility] 02-26-2024 12:05-0400 Systolic blood pressure 118 mm[Hg] Gina Bustillo MD Work Phone: [facility] 01-16-2024 12:43-0400 Body height 160.7 cm Gina MCGREGOR Work Phone: [facility] 01-16-2024 12:43-0400 Body mass index (BMI) [Ratio] 50.47 kg/m2 Gina MCGREGOR Work Phone: [facility] 01-16-2024 12:43-0400 Body weight 130.27 kg Gina Hemmer PA Work Phone: [facility] 01-16-2024 12:43-0400 Diastolic blood pressure 76 mm[Hg] Gina Hemmer PA Work Phone: [facility] 01-16-2024 12:43-0400 Heart rate 89 /min Gina Hemmer PA Work Phone: [facility] 01-16-2024 12:43-0400 Respiratory rate 16 /min Gina Hemmer PA Work Phone: [facility] 01-16-2024 12:43-0400 SaO2% (BldA) [Mass fraction] 96 % Gina Hemmer PA Work Phone: [facility] 01-16-2024 12:43-0400 Systolic blood pressure 124 mm[Hg] Gina Hemmer PA Work Phone: [facility] 11-25-2023 11:52-0400 Body mass index (BMI) [Ratio] 49.56 kg/m2 Maggi Becky LAB TECHNOLOGIST-CLINICAL REHABILITATION SPECIALIST Work Phone: [facility] [employer] [facility] 11-25-2023 11:52-0400 Body weight 130.95 kg Maggi Becky LAB TECHNOLOGIST-CLINICAL REHABILITATION SPECIALIST Work Phone: [facility] 11-25-2023 11:52-0400 Diastolic blood pressure 72 mm[Hg] Maggi Becky LAB TECHNOLOGIST-CLINICAL REHABILITATION SPECIALIST Work Phone: [facility] 11-25-2023 11:52-0400 Heart rate 88 /min Maggi Becky LAB TECHNOLOGIST-CLINICAL REHABILITATION SPECIALIST Work Phone: [facility] [employer] [facility] 11-25-2023 11:52-0400 Systolic blood pressure 126 mm[Hg] Maggi Becky LAB TECHNOLOGIST-CLINICAL REHABILITATION SPECIALIST Work Phone: [facility] 11-13-2023 15:48-0400 Body height 163.83 cm II Rajesh Ruslan Work Phone: [facility] 11-13-2023 15:48-0400 Body mass index (BMI) [Ratio] 48.8 kg/m2 II Rajesh Mercer Work Phone: [facility] 11-13-2023 15:48-0400 Body temperature 97.3 [degF] II Rajesh Mercer Work Phone: [facility] 11-13-2023 15:48-0400 Body weight 131.08 kg II Rajesh Mercer Work Phone: [facility] 11-13-2023 15:48-0400 Diastolic blood pressure 78 mm[Hg] II Rajesh Mercer Work Phone: [facility] 11-13-2023 15:48-0400 Heart rate 88 /min II Rajesh Mercer Work Phone: [facility] 11-13-2023 15:48-0400 Respiratory rate 20 /min II Rajesh Mercer Work Phone: [facility] 11-13-2023 15:48-0400 SaO2% (BldA) [Mass fraction] 95 % II Rajesh Mercer Work Phone: [facility] 11-13-2023 15:48-0400 Systolic blood pressure 148 mm[Hg] II Rajesh Mercer Work Phone: [facility] 08-08-2023 13:25-0400 Body mass index (BMI) [Ratio] 49.88 kg/m2 Maggi Hughesy LAB TECHNOLOGIST-CLINICAL REHABILITATION SPECIALIST Work Phone: [facility] 08-08-2023 13:25-0400 Body weight 131.81 kg Maggi Becky LAB TECHNOLOGIST-CLINICAL REHABILITATION SPECIALIST Work Phone: [facility] 08-08-2023 13:25-0400 Diastolic blood pressure 82 mm[Hg] Maggimarga Hughesy LAB TECHNOLOGIST-CLINICAL REHABILITATION SPECIALIST Work Phone: [facility] [employer] [facility] 08-08-2023 13:25-0400 Heart rate 82 /min Maggi Becky LAB TECHNOLOGIST-CLINICAL REHABILITATION SPECIALIST Work Phone: [facility] 08-08-2023 13:25-0400 Systolic blood pressure 142 mm[Hg] Maggi Peralta APRN-CLINICAL REHABILITATION SPECIALIST Work Phone: [facility] 07-21-2023 15:56-0400 Body height 163.83 cm II Rajesh Mercer Work Phone: [facility] 07-21-2023 15:56-0400 Body mass index (BMI) [Ratio] 48.9 kg/m2 II Rajesh Mercer Work Phone: [facility] 07-21-2023 15:56-0400 Body temperature 97.5 [degF] II Rajesh Mercer Work Phone: [facility] 07-21-2023 15:56-0400 Body weight 131.25 kg II Rajesh Mercer Work Phone: [facility] 07-21-2023 15:56-0400 Diastolic blood pressure 78 mm[Hg] II Rajesh Mercer Work Phone: [facility] 07-21-2023 15:56-0400 Heart rate 81 /min II Rajesh Mercer Work Phone: [facility] 07-21-2023 15:56-0400 Respiratory rate 20 /min II Rajesh Mercer Work Phone: [facility] 07-21-2023 15:56-0400 SaO2% (BldA) [Mass fraction] 94 % II Rajesh Mercer Work Phone: [facility] 07-21-2023 15:56-0400 Systolic blood pressure 142 mm[Hg] II Rajesh Mercer Work Phone: [facility] 03-04-2023 15:15-0400 Body height 163.83 cm Qamar Rowan Other [employer] Other 03-04-2023 15:15-0400 Body mass index (BMI) [Ratio] 49.34 kg/m2 Qamar Harpal Other [employer] Other 03-04-2023 15:15-0400 Body temperature 98 [degF] Mehraner Harpal Other [employer] Other 03-04-2023 15:15-0400 Body weight 132.45 kg Christchazer Harpal Other [employer] Other 03-04-2023 15:15-0400 Diastolic blood pressure 78 mm[Hg] Mehraner Harpal Other [employer] Other 03-04-2023 15:15-0400 Respiratory rate 20 /min Qamar Foremandano Other [employer] Other 03-04-2023 15:15-0400 SaO2% (BldA) [Mass fraction] 96 % Qamar Foremandano Other [employer] Other 03-04-2023 15:15-0400 Systolic blood pressure 148 mm[Hg] Qamar Foremandano Other [employer] Other 11-27-2022 16:00-0400 Body height 163.83 cm Dilan Sergio Other [employer] Other 11-27-2022 16:00-0400 Body mass index (BMI) [Ratio] 49.58 kg/m2 Dilan Sergio Other [employer] Other 11-27-2022 16:00-0400 Body temperature 97.2 [degF] Dilan Sergio Other [employer] Other 11-27-2022 16:00-0400 Body weight 133.09 kg Dilan Sergio Other [employer] Other 11-27-2022 16:00-0400 Diastolic blood pressure 46 mm[Hg] Dilan Sergio Other [employer] Other 11-27-2022 16:00-0400 Respiratory rate 20 /min Dilan Sergio Other [employer] Other 11-27-2022 16:00-0400 SaO2% (BldA) [Mass fraction] 95 % Dilan Sergio Other [employer] Other 11-27-2022 16:00-0400 Systolic blood pressure 149 mm[Hg] Dilan Sergio Other [employer] Other 09-03-2022 16:15-0400 Body height 163.83 cm Qamar Rowan Other [employer] Other 09-03-2022 16:15-0400 Body mass index (BMI) [Ratio] 49 kg/m2 Qamar Rowan Other [employer] Other 09-03-2022 16:15-0400 Body temperature 97.2 [degF] Qamar Rowan Other [employer] Other 09-03-2022 16:15-0400 Body weight 131.54 kg Qamar Pandano Other [employer] Other 09-03-2022 16:15-0400 Diastolic blood pressure 73 mm[Hg] Qamar Rowan Other [employer] Other 09-03-2022 16:15-0400 Respiratory rate 20 /min Qamar Rowan Other [employer] Other 09-03-2022 16:15-0400 SaO2% (BldA) [Mass fraction] 96 % Qamar Rowan Other [employer] Other 09-03-2022 16:15-0400 Systolic blood pressure 123 mm[Hg] Qamar Rowan Other [employer] Other 08-29-2022 14:40-0400 Body height 163.83 cm Dilan Sergio Other [employer] Other 08-29-2022 14:40-0400 Body mass index (BMI) [Ratio] 50.22 kg/m2 Dilan Sergio Other [employer] Other 08-29-2022 14:40-0400 Body temperature 97.6 [degF] Dilan Sergio Other [employer] Other 08-29-2022 14:40-0400 Body weight 134.81 kg Dilan Sergio Other [employer] Other 08-29-2022 14:40-0400 Diastolic blood pressure 72 mm[Hg] Dilan Sergio Other [employer] Other 08-29-2022 14:40-0400 Respiratory rate 20 /min Dilan Sergio Other [employer] Other 08-29-2022 14:40-0400 SaO2% (BldA) [Mass fraction] 91 % Dilan Sergio Other [employer] Other 08-29-2022 14:40-0400 Systolic blood pressure 140 mm[Hg] Dilan Sergio Other [employer] Other 07-15-2022 16:00-0400 Body height 163.83 cm Dilan Sergio Other [employer] Other 07-15-2022 16:00-0400 Body mass index (BMI) [Ratio] 49.82 kg/m2 Dilan Sergio Other [employer] Other 07-15-2022 16:00-0400 Body temperature 97.3 [degF] Dilan Sergio Other [employer] Other 07-15-2022 16:00-0400 Body weight 133.72 kg Dilan Sergio Other [employer] Other 07-15-2022 16:00-0400 Diastolic blood pressure 60 mm[Hg] Dilan Sergio Other [employer] Other 07-15-2022 16:00-0400 Respiratory rate 20 /min Dilan Sergio Other [employer] Other 07-15-2022 16:00-0400 SaO2% (BldA) [Mass fraction] 96 % Dilan Sergio Other [employer] Other 07-15-2022 16:00-0400 Systolic blood pressure 130 mm[Hg] Dilan Sergio Other [employer] Other 03-04-2022 14:30-0400 Body height 163.83 cm Qamar Foremandano Other [employer] Other 03-04-2022 14:30-0400 Body mass index (BMI) [Ratio] 49.68 kg/m2 Christchazer Harpal Other [employer] Other 03-04-2022 14:30-0400 Body temperature 97.3 [degF] Mehraner Harpal Other [employer] Other 03-04-2022 14:30-0400 Body weight 133.36 kg Mehraner Harpal Other [employer] Other 03-04-2022 14:30-0400 Diastolic blood pressure 84 mm[Hg] Hectorchazer Harpal Other [employer] Other 03-04-2022 14:30-0400 Respiratory rate 20 /min Mehraner Harpal Other [employer] Other 03-04-2022 14:30-0400 SaO2% (BldA) [Mass fraction] 96 % Mehraner Harpal Other [employer] Other 03-04-2022 14:30-0400 Systolic blood pressure 156 mm[Hg] Hectorchazer Harpal Other [employer] Other 02-21-2022 16:20-0400 Body height 163.83 cm Dilan Sergio Other [employer] Other 02-21-2022 16:20-0400 Body mass index (BMI) [Ratio] 51.07 kg/m2 Dilan Sergio Other [employer] Other 02-21-2022 16:20-0400 Body temperature 97.1 [degF] Dilan Sergio Other [employer] Other 02-21-2022 16:20-0400 Body weight 137.08 kg Dilan Sergio Other [employer] Other 02-21-2022 16:20-0400 Diastolic blood pressure 81 mm[Hg] Dilan Sergio Other [employer] Other 02-21-2022 16:20-0400 Respiratory rate 20 /min Dilan Sergio Other [employer] Other 02-21-2022 16:20-0400 SaO2% (BldA) [Mass fraction] 96 % Dilan Sergio Other [employer] Other 02-21-2022 16:20-0400 Systolic blood pressure 138 mm[Hg] Dilan Sergio Other [employer] Other 10-23-2021 17:20-0400 Body height 163.83 cm Dilan Sergio Other [employer] Other 10-23-2021 17:20-0400 Body mass index (BMI) [Ratio] 50.12 kg/m2 Dilan Sergio Other [employer] Other 10-23-2021 17:20-0400 Body temperature 97.2 [degF] Dilan Sergio Other [employer] Other 10-23-2021 17:20-0400 Body weight 134.54 kg Dilan Sergio Other [employer] Other 10-23-2021 17:20-0400 Diastolic blood pressure 84 mm[Hg] Dilan Sergio Other [employer] Other 10-23-2021 17:20-0400 Respiratory rate 20 /min Dilan Sergio Other [employer] Other 10-23-2021 17:20-0400 SaO2% (BldA) [Mass fraction] 94 % Dilan Sregio Other [employer] Other 10-23-2021 17:20-0400 Systolic blood pressure 171 mm[Hg] Dilan Sergio Other [employer] Other 10-02-2021 15:15-0400 Body height 163.83 cm Qamar Rowan Other [employer] Other 10-02-2021 15:15-0400 Body mass index (BMI) [Ratio] 49.51 kg/m2 Qamar Rowan Other [employer] Other 10-02-2021 15:15-0400 Body temperature 96.5 [degF] Qamar Foremandano Other [employer] Other 10-02-2021 15:15-0400 Body weight 132.9 kg Qamar Pandano Other [employer] Other 10-02-2021 15:15-0400 Diastolic blood pressure 89 mm[Hg] Qamar Rowan Other [employer] Other 10-02-2021 15:15-0400 Respiratory rate 20 /min Qamar Rowan Other [employer] Other 10-02-2021 15:15-0400 SaO2% (BldA) [Mass fraction] 95 % Qamar Rowan Other [employer] Other 10-02-2021 15:15-0400 Systolic blood pressure 154 mm[Hg] Qamar Rowan Other [employer] Other 04-18-2021 17:20-0500 Body height 163.83 cm Dilan Sergio Other [employer] Other 04-18-2021 17:20-0500 Body mass index (BMI) [Ratio] 49.85 kg/m2 Dilan Sergio Other [employer] Other 04-18-2021 17:20-0500 Body temperature 97 [degF] Dilan Sergio Other [employer] Other 04-18-2021 17:20-0500 Body weight 133.81 kg Dilan Sergio Other [employer] Other 04-18-2021 17:20-0500 Diastolic blood pressure 70 mm[Hg] Dilan Sergio Other [employer] Other 04-18-2021 17:20-0500 Respiratory rate 24 /min Dilan Sergio Other [employer] Other 04-18-2021 17:20-0500 SaO2% (BldA) [Mass fraction] 97 % Dilan Sergio Other [employer] Other 04-18-2021 17:20-0500 Systolic blood pressure 130 mm[Hg] Dilan Sergio Other [employer] Other 04-02-2021 15:30-0500 Body height 163.83 cm Qamar Foremandano Other [employer] Other 04-02-2021 15:30-0500 Body mass index (BMI) [Ratio] 49.51 kg/m2 Mehraner Harpal Other [employer] Other 04-02-2021 15:30-0500 Body temperature 97.1 [degF] Qamar Foremandano Other [employer] Other 04-02-2021 15:30-0500 Body weight 132.9 kg Mehraner Harpal Other [employer] Other 04-02-2021 15:30-0500 Diastolic blood pressure 88 mm[Hg] Qamar Foremandano Other [employer] Other 04-02-2021 15:30-0500 Respiratory rate 20 /min Mehraner Harpal Other [employer] Other 04-02-2021 15:30-0500 SaO2% (BldA) [Mass fraction] 97 % Mehraner Harpal Other [employer] Other 04-02-2021 15:30-0500 Systolic blood pressure 172 mm[Hg] Mehraner Harpal Other [employer] Other 11-27-2020 14:25-0400 Body height 162.79 cm No PCP None [facility] Work Phone: 11-27-2020 14:25-0400 Body mass index (BMI) [Ratio] 50.57 kg/m2 No PCP None [facility] Work Phone: 11-27-2020 14:25-0400 Body surface area Derived from formula 2.31 m2 No PCP None [facility] Work Phone: 11-27-2020 14:25-0400 Body temperature 36.4 [degF] No PCP None [facility] Work Phone: 11-27-2020 14:25-0400 Body weight 134.01 kg No PCP None [facility] Work Phone: 11-27-2020 14:25-0400 Diastolic blood pressure 79 mm[Hg] No PCP None [facility] Work Phone: 11-27-2020 14:25-0400 Heart rate 75 /min No PCP None [facility] Work Phone: 11-27-2020 14:25-0400 Respiratory rate 16 /min No PCP None [facility] Work Phone: 11-27-2020 14:25-0400 SaO2% (BldA) [Mass fraction] 96 % No PCP None [facility] Work Phone: 11-27-2020 14:25-0400 Systolic blood pressure 166 mm[Hg] No PCP None [facility] Work Phone: 11-27-2020 14:25-0400 4 1 No PCP None [facility] Work Phone: Comment on above: [employer] 1950 23:00-0500 >na< Reyna Serranoahan Dept. 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 Dx); Chronic obstructive pulmonary disease, unspecified COPD type (CMS/HCC); Primary osteoarthritis of both knees; Presence of both artificial knee joints; Vitreous hemorrhage, unspecified eye (CMS/HCC); Malignant melanoma of left upper limb, including shoulder (CMS/HCC); Pulmonary hypertension, unspecified (CMS/HCC); Morbid (severe) obesity due to excess calories (CMS/HCC); Body mass index (BMI) 45.0-49.9, adult (CMS/HCC); Type 2 diabetes mellitus with diabetic chronic kidney disease (CMS/HCC); Chronic kidney disease, stage 3b (HCC) (CMS/HCC); Major depressive disorder, recurrent, moderate (CMS/HCC) Start: 06-18-2024 End: 06-18-2024 ambulatory RAJESH MERCER Not Available Start: 05-31-2024 End: 06-02-2024 Clinisync Result Encounter Generic External Data Provider [facility] Unsolicited Start: 05-31-2024 End: 06-02-2024 Clinisync Result Encounter Generic External Data Provider [facility] External [facility] Unsolicited Start: 05-21-2024 ambulatory Dez Gallagher Jr [facility] Start: 04-22-2024 End: 04-22-2024 Office outpatient visit 10 minutes Kailee Nova DPM Work Phone: [facility] Comment on above: Ingrown toenail (Shy nimco Dx); Left foot pain Start: 04-22-2024 End: 04-22-2024 ambulatory KAILEE NOVA Not Available Start: 04-22-2024 End: 04-22-2024 Bamboo flowsheet Kailee Nova DPM Work Phone: [facility] Start: 04-22-2024 End: 04-22-2024 Bamboo flowsheet Kailee Nova DPM Work Phone: [facility] Start: 04-19-2024 End: 04-19-2024 Assay of hemosiderin, quant Rajesh Mercer MD Work Phone: [facility] Start: 04-19-2024 End: 04-19-2024 Patient encounter [...] Start: 04-12-2024 End: 04-12-2024 ambulatory Rajesh Mercer Facility:[facility] Start: 03-25-2024 End: 03-25-2024 Office outpatient visit 15 minutes Kailee Nova DPM Work Phone: [facility] Comment on above: Ingrown toenail (Shy nimco Dx); Left foot pain; Onychomycosis; Type 2 diabetes mellitus without complication, without long-term current use of insulin ([facility] Start: 03-25-2024 End: 03-25-2024 ambulatory KAILEE NOVA Not Available Start: 03-25-2024 End: 03-25-2024 Bamboo flowsheet Kailee Nova DPM Work Phone: [facility] Start: 03-25-2024 End: 03-25-2024 Bamboo flowsheet Kailee Nova DPM Work Phone: [facility] Start: 03-03-2024 ambulatory Dez Gallagher Jr [facility] [place] Start: 03-03-2024 End: 03-03-2024 Refill Gina Bustillo MD Work Phone: [facility] Comment on above: Type 2 diabetes gauri itus with hypoglycemia without coma, without long-term current use of insulin ([facility] Start: 03-01-2024 End: 03-01-2024 Refill Jemima Friday [employer] Work Phone: [facility] Comment on above: Primary osteoarthrit is of both knees (Primary Dx) Start: 02-26-2024 End: 02-26-2024 Office outpatient visit 25 minutes Gina Bustillo MD Work Phone: [facility] Comment on above: Type 2 diabetes gauri itus with hypoglycemia without coma, without long-term current use of insulin ([facility]) (Primary Dx); Primary hypertension; Mixed hyperlipidemia Start: 02-26-2024 End: 02-26-2024 ambulatory GINA BUSTILLO [facility] Start: 02-24-2024 End: 02-24-2024 Office outpatient visit 10 minutes Kailee Nova DPM Work Phone: [facility] Comment on above: Ingrown toenail (Shy nimco Dx); Left foot pain Start: 02-24-2024 End: 02-24-2024 ambulatory KAILEE NOVA Not Available Start: 01-29-2024 End: 01-29-2024 Refill Gina MCGREGOR Work Phone: [facility] Comment on above: Primary osteoarthrit is of both knees Start: 01-26-2024 End: 01-26-2024 Office outpatient visit 10 minutes Kailee Nova DPM Work Phone: [facility] Comment on above: Ingrown toenail (Shy rinaldi Dx); Left foot pain Start: 01-26-2024 End: 01-26-2024 ambulatory KAILEE NOVA Not Available Start: 01-26-2024 End: 01-26-2024 Bamboo flowsheet Kailee Nova DPM Work Phone: [facility] Start: 01-26-2024 End: 01-26-2024 Bamboo flowsheet Kailee Nova DPM Work Phone: [facility] Start: 01-16-2024 End: 01-16-2024 Bamboo flowsheet Gina MCGREGOR Work Phone: [facility] Start: 01-16-2024 End: 01-16-2024 Bamboo flowsheet Gina MCGREGOR Work Phone: [facility] Start: 01-16-2024 [...] Available Start: 12-31-2023 ambulatory Dez Gallagher Jr [facility] Start: 12-08-2023 End: 12-08-2023 ambulatory KAILEE NOVA Not Available Start: 11-25-2023 End: 11-25-2023 Office outpatient visit 25 minutes Maggi Peralta LAB TECHNOLOGIST-CLINICAL REHABILITATION SPECIALIST Work Phone: [facility] Comment on above: Type 2 diabetes gauri itus with hyperglycemia, with long-term current use of insulin ([facility]) (Primary Dx); Primary hypertension; Mixed hyperlipidemia Start: 11-25-2023 End: 11-25-2023 ambulatory MAGGIJULIA PERALTA [facility] Start: 11-13-2023 End: 11-13-2023 ambulatory II Rajesh Mercer Work Phone: [facility] Work Phone: Start: 11-13-2023 End: 11-13-2023 Patient encounter procedure II Rajesh Mercer Work Phone: [facility] Work Phone: Start: 11-10-2023 End: 11-10-2023 Patient encounter procedure II Rajesh Mercer Work Phone: [facility] [place] Work Phone: Start: 11-10-2023 End: 11-10-2023 ambulatory Dilan Sergio Facility:[facility] Start: 11-08-2023 End: 11-10-2023 Zane Bustillo MD Work Phone: [facility] Comment on above: Type 2 diabetes gauri itus with hyperglycemia, with long-term current use of insulin ([facility] Start: 10-27-2023 End: 10-27-2023 Telephone encounter Maggi Peralta LAB TECHNOLOGIST-CLINICAL REHABILITATION SPECIALIST Work Phone: [facility] Start: 10-22-2023 End: 10-22-2023 ambulatory KAILEE NOVA Not Available Start: 10-16-2023 End: 10-16-2023 Refcelio Bustillo MD Work Phone: [facility] Comment on above: Type 2 diabetes gauri itus with hyperglycemia, with long-term current use of insulin ([facility]) Start: 09-25-2023 End: 09-25-2023 Refill Maggi Peralta LAB TECHNOLOGIST-CLINICAL REHABILITATION SPECIALIST Work Phone: [facility] Comment on above: Type 2 diabetes gauri itus with hyperglycemia, with long-term current use of insulin ([facility]) Start: 09-10-2023 End: 09-10-2023 ambulatory KAILEE NOVA Not Available Start: 09-03-2023 End: 09-03-2023 ambulatory [facility] Start: 09-03-2023 End: 09-03-2023 Office outpatient visit 25 minutes Reyna Rdz MD Work Phone: [facility] Comment on above: Fissure in skin (Shy nimco Dx); Encounter for screening for malignant neoplasm of skin; Personal history of malignant melanoma of skin; Family history of melanoma; Hemangioma of skin; Melanocytic nevus, unspecified location; Lentigo; Seborrheic keratosis; Scar conditions and fibrosis of skin Start: 08-21-2023 End: 08-21-2023 Zane Bustillo MD Work Phone: [facility] Comment on above: Type 2 diabetes gauri itus with hyperglycemia, with long-term current use of insulin ([facility]) Start: 08-08-2023 End: 08-08-2023 ambulatory MAGGI Cárdenas BECKY [facility] Start: 08-08-2023 End: 08-08-2023 Office outpatient visit 25 minutes Maggi Peralta LAB TECHNOLOGIST-CLINICAL REHABILITATION SPECIALIST [facility] Comment on above: Type 2 diabetes gauri itus with hyperglycemia, with long-term current use of insulin ([facility]) (Primary Dx); Primary hypertension Start: 07-26-2023 Zane rodarte MD Work Phone: [facility] Comment on above: Type 2 diabetes gauri itus with hyperglycemia, with long-term current use of insulin ([facility]) Start: 07-24-2023 End: 07-24-2023 ambulatory KAILEE NOVA Not Available Start: 07-21-2023 End: 07-21-2023 Patient encounter procedure II Rajesh Mercer Work Phone: [facility] [place] Work Phone: Start: 07-21-2023 End: 07-21-2023 ambulatory II Rajesh Mercer Work Phone: [facility] Work Phone: Start: 07-21-2023 End: 07-21-2023 ambulatory II Rajesh Mercer Work Phone: [facility] Work Phone: Start: 07-21-2023 End: 07-21-2023 Patient encounter procedure II Rajesh Mercer Work Phone: [facility] Work Phone: Start: 07-18-2023 End: 07-18-2023 Patient encounter procedure II Rajesh Mercer Work Phone: [facility] [place] Work Phone: Start: 07-18-2023 End: 07-18-2023 ambulatory II Rajesh Mercer Work Phone: [facility] Work Phone: Start: 2023 Refcelio rodarte MD Work Phone: [facility] Comment on above: Type 2 diabetes gauri itus with hypoglycemia without coma, without long-term current use of insulin ([facility]) (Primary Dx) Start: 06-29-2023 Refill Maggi Peralta LAB TECHNOLOGIST-CLINICAL REHABILITATION SPECIALIST Work Phone: [facility] Comment on above: Type 2 diabetes gauri itus with hyperglycemia, with long-term current use of insulin ([facility]) Start: 03-04-2023 End: 03-04-2023 ambulatory Christchazer Harpal Other [employer] Other Start: 03-04-2023 Office outpatient vi sit 15 minutes Qamar Pandano [facility] Start: 03-03-2023 End: 03-03-2023 [facility] Start: 03-03-2023 End: 03-03-2023 Office outpatient visit 25 minutes Reyna Rdz MD Work Phone: [facility] Comment on above: Furuncle (Primary Dx ); Melanocytic nevus, unspecified location; Lentigo; Hemangioma of other sites; Seborrheic keratosis; Scar conditions and fibrosis of skin; Personal history of malignant melanoma of skin Start: 12-20-2022 End: 12-20-2022 ambulatory Dilan Sergio Other [employer] Other Start: 12-20-2022 Telephone encounter Dilan Sergio [facility] Start: 12-17-2022 End: 12-17-2022 ambulatory Dilan Sergio Other [employer] Other Start: 12-17-2022 Telephone encounter Dilan Sergio [facility] Start: 11-27-2022 End: 11-27-2022 ambulatory Dilan Sergio Other [employer] Other Start: 11-27-2022 Office outpatient vi sit 25 minutes Dilan Sergio [facility] Start: 09-09-2022 ambulatory Reyna Zhou ity:[id number] Start: 09-03-2022 End: 09-03-2022 ambulatory Christchazer Harpal Other [employer] Other Start: 09-03-2022 Office outpatient vi sit 15 minutes Christchazer Harpal [facility] Start: 08-29-2022 End: 08-29-2022 ambulatory Dilan Sergio Other [employer] Other Start: 08-29-2022 Office outpatient vi sit 15 minutes Dilan Sergio [facility] Start: 08-26-2022 ambulatory Rajesh Mercer II Facility:[id number] Start: 08-26-2022 ambulatory Rajesh Mercer II Facility:[id number] Start: 08-19-2022 End: 08-19-2022 ambulatory Dilan Sergio Other [employer] Other Start: 08-19-2022 Telephone encounter Dilan Sergio [facility] Start: 07-15-2022 End: 07-15-2022 ambulatory Dilan Sregio Other [employer] Other Start: 07-15-2022 Office outpatient vi sit 25 minutes Dilan Sergio [facility] Start: 07-13-2022 End: 07-13-2022 ambulatory II Rajesh Mercer Work Phone: [facility] Work Phone: Start: 07-13-2022 End: 07-13-2022 Patient encounter procedure II Rajesh Mercer Work Phone: [facility] [place] Work Phone: Start: 07-10-2022 ambulatory Rajesh Mercer II Facility:[id number] Start: 07-09-2022 End: 07-10-2022 Office outpatient visit 15 minutes Reyna Rdz Dept. of Dermatology Start: 07-09-2022 End: 07-10-2022 Office outpatient visit 25 minutes Reyna Rdz Dept. of Dermatology Start: 05-13-2022 End: 05-13-2022 ambulatory II Rajesh Mercer Work Phone: [facility] Work Phone: Start: 05-13-2022 End: 05-13-2022 Patient encounter procedure II Rajesh Mercer Work Phone: [facility] [place] Work Phone: Start: 05-08-2022 End: 05-08-2022 ambulatory Dilan Sergio Other [employer] Other Start: 05-08-2022 Telephone encounter Dilan Sergio [facility] Start: 03-07-2022 End: 03-07-2022 ambulatory Dilan Sergio Other [employer] Other Start: 03-07-2022 Telephone encounter Dilan Sergio [facility] Start: 03-06-2022 End: 03-06-2022 ambulatory II Rajesh Mercer Work Phone: [facility] Work Phone: Start: 03-06-2022 End: 03-06-2022 Patient encounter procedure II Rajesh Mercer Work Phone: [facility] Start: 03-04-2022 End: 03-04-2022 ambulatory Christopher Harpal Other [employer] Other Start: 03-04-2022 Office outpatient vi sit 15 minutes Christopher Harpal [facility] Start: 02-21-2022 End: 02-21-2022 ambulatory Dilan Sergio Other [employer] Other Start: 02-21-2022 Office outpatient vi sit 25 minutes Dilan Sergio [facility] Start: 02-20-2022 End: 02-20-2022 ambulatory II Rajesh Mercer Work Phone: [facility] Work Phone: Start: 02-20-2022 End: 02-20-2022 Patient encounter procedure II Rajesh Mercer Work Phone: [facility] [place] Start: 11-01-2021 End: 11-01-2021 ambulatory Dilan Sergio Other [employer] Other Start: 11-01-2021 Telephone encounter Dilan Sergio [facility] Start: 10-23-2021 End: 10-23-2021 ambulatory Dilan Sergio Other [employer] Other Start: 10-23-2021 Office outpatient vi sit 25 minutes Dilan Sergio [facility] Start: 10-19-2021 ambulatory Rajesh Bayjessy Mercer II Facility:[id number] Start: 10-02-2021 End: 10-02-2021 ambulatory Qamar Rowan Other [employer] Other Start: 10-02-2021 Office outpatient vi sit 15 minutes Qamar Rowan [facility] Start: 08-15-2021 End: 08-15-2021 Office outpatient visit 15 minutes Reyna Rdz Dept. of Dermatology Start: 08-06-2021 End: 08-06-2021 ambulatory Dilan Sergio Other [employer] Other Start: 08-06-2021 Telephone encounter Dilan Sergio [facility] Start: 08-03-2021 End: 08-25-[address] RAJ GALLOWAY Facility:[id number] Start: 06-18-2021 Patient encounter procedure No PCP None [facility] Work Phone: Start: 06-18-2021 Phys/qhp telephone evaluation 11-20 min No PCP None [facility] Work Phone: Start: 04-18-2021 End: 04-18-2021 ambulatory Dilan Sergio Other [employer] Other Start: 04-18-2021 Office outpatient vi sit 25 minutes Dilan Nguyễn [facility] Start: 04-02-2021 End: 04-02-2021 ambulatory Mehranmarissa Harpal Other [employer] Other Start: 04-02-2021 Office outpatient vi sit 15 minutes Qamar oRwan [facility] Start: 12-19-2020 Chart Update No PCP None [id number] Work Phone: Start: 11-27-2020 Office outpatient vi sit 15 minutes No PCP None [place] Work Phone: Start: 09-13-2020 End: 09-13-2020 Office outpatient visit 15 minutes [facility] Dept. of Dermatology Start: 01-26-2020 End: 01-26-2020 Office outpatient visit 15 minutes [facility] of Dermatology Start: 01-26-2020 End: 01-26-2020 Office outpatient visit 25 minutes [facility] Dept. of Dermatology Start: 03-06-2018 End: 03-07-2018 Patient encounter procedure [facility] Start: 09-19-2017 End: 09-20-2017 Patient encounter procedure [facility] Procedures Date Procedure Procedure Detail Performing Clinician Start: 06-18-2024 ALL MAGNESIUM Rajesh Mercer MD Work Phone: Start: 06-18-2024 [facility] CMP (CMP) (FOR R [facility] USE) Rajesh Mercer MD Work Phone: Start: 06-18-2024 Urnls dip stick/tabl et rgnt non-auto w/o micrscp Rajesh Mercer MD Work Phone: Start: 05-31-2024 BLOOD CULTURE 2 Generic External Data Provider Start: 05-31-2024 BLOOD CULTURE 1 Generic External Data Provider Start: 05-21-2024 Computerized ophthal srinivas imaging retina [...] 12-31-2023 Intravitreal njx pharmacologic agt spx Dez Gallagher Jr Start: 11-25-2023 Hemoglobin glycosylated a1c Maggi Peralta LAB TECHNOLOGIST-CLINICAL REHABILITATION SPECIALIST Work Phone: Start: 10-24-2023 Diabetic retinal eye exam Gina Bustillo MD Work Phone: Start: 08-08-2023 Hemoglobin glycosylated a1c Maggi Peralta LAB TECHNOLOGIST-CLINICAL REHABILITATION SPECIALIST Work Phone: Start: 08-05-2023 Urine albumin quantitative Rajesh Mercer MD Work Phone: Start: 07-18-2023 Urine culture II Rajesh Mercer Work Phone: Start: 11-25-2022 Microalbumin [Mass/v olume] in Urine by Test strip Maggi Peralta APRN-CLINICAL REHABILITATION SPECIALIST Work Phone: Start: 07-09-2022 End: 07-10-2022 Tangential [...] MERCER Start: 03-06-2018 PTH, INTACT RAJESH MOORE RY Start: 03-06-2018 RENAL FUNCTION PANEL ROSEY MERCER Start: 03-06-2018 Urate [Mass/volume] in Serum or Plasma RAJESH MERCER Start: 03-06-2018 Urnls dip stick/tabl et reagent auto microscopy RAJESH MERCER Start: 03-06-2018 VITAMIN D 25 HYDROXY ROSEY MERCER Start: 09-19-2017 Assay of magnesium RUDY MERCER Start: 09-19-2017 Blood count complete automated RAJESH MERCER Start: 09-19-2017 PROTEIN / CREATININE RATIO, URINE RAJESH MERCER Start: 09-19-2017 PTH, INTACT RAJESH MOORE RY Start: 09-19-2017 RENAL FUNCTION PANEL DA LUZ MERCER Start: 09-19-2017 Urate [Mass/volume] in Serum [...] Activity Detail Author Start: 04-19-2025 Medicare Annual Wellness (AWV) Medicare Annual Wellness (AWV) [facility] [...] 03-03-2025 Glaucoma screening Diabetes: R etinopathy Screening [facility] Start: 02-25-2025 Adult BMI Screening Adult BMI Screen ing [facility] Start: 02-25-2025 Tobacco Screening Tobacco Screening [facility] Start: 11-24-2024 Adult BMI Screening Adult BMI Screen ing [facility] Start: 11-24-2024 Tobacco Screening Tobacco Screening [facility] Start: 10-23-2024 Glaucoma screening Diabetic Op hthalmology Exam [facility] Start: 10-18-2024 End: 10-18-2024 Patient encounter procedure 10/18/2024 3:30 PM EDT Office Visit [facility] [address] [place] [address] Rajesh Mercer MD [address] [place] [address] [facility] Start: 08-26-2024 End: 08-26-2024 Patient encounter procedure [facility] Start: 08-17-2024 End: 08-17-2024 Patient encounter procedure 08/17/2024 3:45 PM EDT Office Visit [facility] [address] [place] [phone] Kailee Nova, DPM [address] [place] [address] [facility] Start: 08-07-2024 Adult BMI Screening Adult BMI Screen ing [facility] Start: 08-07-2024 Tobacco Screening Tobacco Screening [facility] Start: 08-04-2024 Urine screening for protein Diabetes: Urine Protein Screening [facility] Start: 07-20-2024 End: 07-20-2024 Patient encounter procedure 07/20/2024 3:45 PM EDT Office Visit [facility] [address] [place] [phone] Kailee Nova, DPM [address] [place] [address] [facility] Start: 06-22-2024 End: 06-22-2024 Patient encounter procedure 06/22/2024 3:45 PM EST Office Visit [facility] [address] [place] [address] Kailee Nova, DPM [address] [place] [address] [facility] Start: 06-18-2024 End: 06-18-2025 Comprehensive metabolic 2000 panel - Serum or Plasma Comprehensive metabolic panel Lab Routine 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 ([facility]/HCC) Expected: 06/18/2024 (Approximate), Expires: 06/18/2025 [facility] Comment on above: Expected: 06/18/2024 (Approximate), Expires: 06/18/2025 Start: 06-18-2024 End: 06-18-2025 Magnesium [Mass/volume] in Serum or Plasma Magnesium Lab Routine 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 (CMS/HCC) Expected: 06/18/2024 (Approximate), Expires: 06/18/2025 [facility] Comment on above: Expected: 06/18/2024 (Approximate), Expires: 06/18/2025 Start: 06-18-2024 End: 06-18-2024 Patient encounter procedure 06/18/2024 11:30 AM EST Office Visit [facility] [address] [facility] [address] [place] [address] Rajesh Mercer MD [address] [facility] [address] [place] [address] Arrived [facility] Comment on above: Arrived Start: 06-10-2024 End: 06-10-2024 Patient encounter procedure 06/10/2024 10:30 AM EST Office Visit [facility] [address] [facility] [address] [place] [address] Rajesh Mercer MD 112 [facility] [address] [place] [address] [facility] Start: 05-28-2024 Hemoglobin A1c measurement Diabetes: Hemoglobin A1C [facility] Start: 05-24-2024 End: 05-24-2024 Patient encounter procedure 05/24/2024 4:15 PM EST Office Visit [facility] [address] [place] [address] Kailee Nova, DPM [address] [place] [address] [facility] Start: 04-22-2024 End: 04-22-2024 Patient encounter procedure [facility] Comment on above: Arrived Start: 04-21-2024 End: 04-21-2024 Patient encounter procedure [facility] Start: 04-19-2024 End: 04-19-2024 Patient encounter procedure [facility] Comment on above: Arrived Start: 03-25-2024 End: 03-25-2024 Patient encounter procedure 03/25/2024 2:30 PM EST Office Visit [facility] [address] [place] [phone] Kailee Nova, DPM [address] [place] [address] Arrived [facility] Comment on above: Arrived Start: 03-24-2024 End: 03-24-2024 Patient encounter procedure 03/24/2024 3:00 PM EST Office Visit [facility] [address] [place] [phone] Kailee Nova, DPM [address] [place] [address] [facility] Start: 03-23-2024 End: 03-23-2024 Patient encounter procedure 03/23/2024 4:00 PM EST Office Visit [facility] [address] [place] [phone] Michael Bass DPM [address] [place] [address] [facility] Start: 03-10-2024 End: 03-10-2024 Patient encounter procedure 03/10/2024 3:00 PM EST Office Visit [facility] [address] [phone] Reyna Rdz MD [address] [facility] [address], [facility] [address] [place] [address] [facility] Start: 03-05-2024 Examination of skin Derm Melan leydi Skin Check [facility] Start: 02-27-2024 Medicare Annual Wellness (AWV) Medicare Annual Wellness (AWV) [facility] Start: 02-27-2024 Screening for malign ant neoplasm of colon Colorectal Cancer Screening [facility] Comment on above: Postponed from 07/01 (Patient Refused) Start: 02-26-2024 Screening for malign ant neoplasm of breast Mammogram [facility] Comment on above: Postponed from 07/01 (Patient Refused) Start: 02-26-2024 End: 02-26-2024 Patient encounter procedure 02/26/2024 11:45 AM EDT Office Visit [facility] [address] [place] [phone] Gina Bustillo MD [address] [place] [address] [facility] Start: 02-25-2024 Hemoglobin A1c measurement Diabetes: Hemoglobin A1C [facility] Start: 02-24-2024 End: 02-24-2024 Patient encounter procedure 02/24/2024 2:30 PM EDT Office Visit [facility] [address] [place] [address] Kailee Nova DPM [address] [facility] [address] [place] [address] [facility] Start: 01-26-2024 End: 01-26-2024 Patient encounter procedure [facility] Comment on above: Arrived Start: 01-24-2024 Glaucoma screening Diabetes: R etinopathy Screening [facility] Start: 01-16-2024 End: 01-15-2025 XR Knee - right 4 Views XR knee 4+ views right Imaging Routine Acute pain of right knee Expected: 01/16/2024, Expires: 01/15/2025 [facility] Work Phone: Comment on above: Expected: 01/16/2024 , Expires: 01/15/2025 Start: 01-16-2024 End: 01-16-2024 Patient encounter procedure 01/16/2024 1:00 PM EDT Office Visit [facility] [address] [facility] [address] [place] [phone] Gina Zarate PA [address] [facility] [address] [place] [address] Arrived [facility] Comment on above: Arrived Start: 01-04-2024 Influenza vaccination [facility] Start: 12-21-2023 Adult BMI Screening Adult BMI Screen ing [facility] Start: 12-21-2023 Tobacco Screening Tobacco Screening [facility] Start: 11-26-2023 Urine screening for protein [facility] Start: 11-25-2023 End: 11-25-2023 Patient encounter procedure 11/25/2023 11:30 AM EDT Office Visit [facility] [address] [place] [address] Maggi Peralta, LAB TECHNOLOGIST-CLINICAL REHABILITATION SPECIALIST [address] [place] [address] [facility] Start: 09-03-2023 End: 09-03-2023 Patient encounter procedure 09/03/2023 2:45 PM EDT Office Visit [facility] [address] [phone] Reyna Rdz MD [address], [facility] [address] [place] [address] [facility] Start: 07-18-2023 Bacteria identified in Urine by Culture Urine Culture [facility] Start: 06-27-2023 COVID-19 Vaccine ( season) COVID-19 Vaccine ( season) [facility] Start: 06-27-2023 COVID-19 Vaccine ( season) COVID-19 Vaccine ( season) [facility] Start: 04-21-2023 COVID-19 Vaccine (4 - Moderna series) COVID-19 Vaccine (4 - Moderna series) [facility] Start: 03-22-2023 Hemoglobin A1c measurement Diabetes: Hemoglobin A1C [facility] Start: 01-03-2023 COVID-19 Vaccine ( season) COVID-19 Vaccine ( season) [facility] Start: 01-03-2023 Influenza vaccination Influenza Vacc ine [facility] Start: 07-13-2022 Bacteria identified in Urine by Culture [facility] Start: 05-21-2021 FUV, Provider: Heath Francisco, Status: Pen, Time: 2:00 PM FUV, Provider: Heath Francisco, Status: Pen, Time: 2:00 PM [facility] Work Phone: Start: 04-20-2020 Pneumococcal Vaccine : 65+ Years (2 - PCV) Pneumococcal Vaccine: 65+ Years (2 - PCV) [facility] Start: 04-20-2020 Pneumococcal Vaccine : 65+ Years (2 of 2 - PCV) Pneumococcal Vaccine: 65+ Years (2 of 2 - PCV) [facility] Start: 2016 Fall Risk Screening Fall Risk Screen ing [facility] Start: 2011 RSV patient s and/or patients aged 60+ years (1 - 1-dose 60+ series) RSV patients and/or patients aged 60+ years (1 - 1-dose 60+ series) [facility] Start: 2001 Administration of varicella zoster vaccine Zoster (Shingles) Vaccine (1 of 2) [facility] Start: 2001 Zoster Vaccines (1 o f 2) Zoster Vaccines (1 of 2) [facility] Start: 1991 Screening for malign ant neoplasm of breast Mammogram [facility] Start: 1973 DTaP/Tdap/Td Vaccine s (1 - Tdap) DTaP/Tdap/Td Vaccines (1 - Tdap) [facility] Start: 1970 DTaP,Tdap and Td Vaccines (1 - Tdap) DTaP,Tdap and Td Vaccines (1 - Tdap) [facility] Start: 1970 Urine screening for protein Diabetes: Urine Protein Screening [facility] Start: 1969 Adult BMI Follow Up Plan Adult BMI Follow Up Plan [facility] Start: 1969 Diabetic foot examination Diabetic Foot Exam [facility] Start: 1969 Hepatitis C screening Hepatitis C Sc reening [facility] Start: 1963 Depression Screening Depression Scre ening [facility] Start: 1961 Diabetic foot examination Diabetes: Foot Exam [facility] Start: 1951 Examination of skin Derm Melan leydi Skin Check [facility] Start: 1951 Glaucoma screening Diabetic Op hthalmology Exam [facility] Start: 1951 Lipid panel Lipid Panel [facility] Start: 1951 Medicare Annual Wellness Visit [facility] Start: 1951 Screening for malign ant neoplasm of colon [facility] Start: 1951 Screening for osteoporosis Bone Density Scan [facility] Bacteria identified in Urine by Culture [facility] BLOOD CULTURE 1 BLOOD CULTURE 1 Lab Routine 05/31/2024 4:30 PM EST [facility] BLOOD CULTURE 2 BLOOD CULTURE 2 Lab Routine 05/31/2024 4:40 PM EST [facility] CBC W Auto Different ial panel - Blood CBC and differential Lab Routine 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 ([facility]/HCC) Ordered: 06/18/2024 [facility] Work Phone: Comment on above: Ordered: 06/18/2024 End: 11-24-2024 Lipid panel Lipid panel Lab Routine Mixed hyperlipidemia 1 Occurrences starting 11/25/2023 until 11/24/2024 [facility] Work Phone: Comment on above: 1 Occurrences starti ng 11/25/2023 until 11/24/2024 Renal function 1999 panel - Serum or Plasma [facility] Renal function 1999 panel - Serum or Plasma [facility] Immunizations Immunization Date Immunization Notes Care Provider Fa [facility] 02-23-2024 Seasonal trivalent influenza vaccine, adjuvanted, preservative free Rajesh Mercer MD Work Phone: [facility] 02-23-2024 influenza virus vaccine, unspecified formulation Kailee Nova DPM Work Phone: [facility] 02-24-2023 Influenza, Seasonal, Quadrivalent, Adjuvanted Reyna Rdz MD Work Phone: [facility] Work Phone: 02-24-2023 Pfizer COVID-19 vaccine, Fall 2022, 12 years and older, (30mcg/0.3mL) Reyna Rdz MD Work Phone: [facility] Work Phone: 02-24-2023 influenza virus vaccine, unspecified formulation Maggi Peralta LAB TECHNOLOGIST-CLINICAL REHABILITATION SPECIALIST Work Phone: [facility] 02-20-2022 Influenza, Seasonal, Quadrivalent, Adjuvanted Reyna Rdz MD Work Phone: [facility] Work Phone: 02-20-2022 influenza virus vaccine, unspecified formulation Maggi Peralta LAB TECHNOLOGIST-CLINICAL REHABILITATION SPECIALIST Work Phone: [facility] 02-13-2022 influenza, high dose seasonal, preservative-free Reyna Rdz MD Work Phone: [facility] Work Phone: 01-26-2022 Moderna COVID-19 vaccine, bivalent, blue cap/harrell label *Check age/dose* Reyna Rdz MD Work Phone: [facility] Work Phone: 03-22-2021 influenza, high dose seasonal, preservative-free Reyna Rdz MD Work Phone: [facility] Work Phone: 03-06-2021 COVID-19 Moderna Hectoropher Harpal Other [facility] 08-25-2020 COVID-19 [facility] Other [facility] 07-26-2020 COVID-19 Moderna Christopher Harpal Other [facility] 05-16-2020 influenza virus vaccine, unspecified formulation Gina MCGREGOR Work Phone: [facility] 05-16-2020 influenza, injectabl e, quadrivalent, contains preservative Reyna Rdz MD Work Phone: [facility] Work Phone: 04-20-2019 pneumococcal polysaccharide vaccine, 23 valent Reyna Rdz MD Work Phone: [facility] Work Phone: 03-29-2019 Influenza, injectabl e, Madin Whittier Canine Kidney, preservative free, quadrivalent Reyna Rdz MD Work Phone: [facility] Work Phone: 02-08-2018 Seasonal trivalent influenza vaccine, adjuvanted, preservative free Reyna Rdz MD Work Phone: [facility] Work Phone: 02-07-2016 influenza, injectabl e, quadrivalent, contains preservative Reyna Rdz MD Work Phone: [facility] Work Phone: 01-06-2015 seasonal influenza, intradermal, preservative free Gina MCGREGOR Work Phone: [facility] 02-22-2008 influenza virus vaccine, whole virus Reyna Rdz MD Work Phone: [facility] 1950 pneumococcal conjuga te vaccine, 7 valent Reyna Rdz Dept. of Dermatology Payers Date Payer Category Payer Self-pay [id number] 2021 Private Health Insurance [facility] [id number] 2019 [facility] [id number]. [id number] 2019 Unknown 2017 Private Health Insurance [id number] 2016 Medicare [id number]. [id number] 1959 Medicare [id number] 1959 Unknown [id number] 1951 Unknown [id number] 2.16.840.1.694396.3.579.2. 173 1951 Unknown [id number] 2.16.840.1.384303.3.579.2. 173 1951 Unknown [id number] 2.16.840.1.354900.3.579.2. 593 1951 Unknown [id number] 2.16.840.1.910763.3.579.2. 356 1951 Unknown [id number] 2.16.840.1.058756.3.579.2. 356 1951 Unknown [id number] 2.16.840.1.040965.3.579.2. 356 1951 Unknown [id number] 2.16.840.1.126232.3.579.2. 356 1951 Unknown [id number] 2.16.840.1.551282.3.579.2. 356 1951 Unknown [id number] 2.16.840.1.861347.3.579.2. 356 1951 Unknown [id number] 2.16.840.1.979713.3.579.2. 1244 1951 Unknown [id number] 2.16.840.1.469561.3.579.2. 1244 1951 Unknown [id number] 2.16.840.1.367126.3.579.2. 1286 1951 Unknown [id number] 2.16.840.1.283462.3.579.2. 1286 1951 Unknown [id number] 2.16.840.1.496418.3.579.2. 1286 1951 Unknown [id number] 2.16.840.1.252157.3.579.2. 1347 1951 Unknown [id number] 2.16.840.1.088337.3.579.2. 1347 1951 Unknown [id number] 2.16.840.1.551742.3.579.2. 1347 1951 Unknown [id number] 2.16.840.1.367546.3.579.2. 1259 1951 Unknown [id number] 2.16.840.1.599817.3.579.2. 1259 1951 Unknown [id number] 2.16.840.1.098614.3.579.2. 9 1951 Unknown [id number] 2.16.840.1.484730.3.579.2. 125 1951 Unknown [id number] 2.16.840.1.090649.3.579.2. 1259 1951 Unknown [id number] 2.16.840.1.321370.3.579.2. 1259 1951 Unknown [id number] 2.16.840.1.166386.3.579.2. 1259 1951 Unknown [id number] 2.16.840.1.161155.3.579.2. 1259 1951 Unknown [id number] 2.16.840.1.294723.3.579.2. 1259 1951 Unknown [id number] 2.16.840.1.334791.3.579.2. 1259 1951 Unknown [id number] 2.16.840.1.044428.3.579.2. 1259 Unknown [id number] 2.16.840.1.617566.3.579.2. 531 Unknown [id number] 2.16.840.1.316304.3.579.2. 531 Unknown [id number] 2.16.840.1.491211.3.579.2. 531 Unknown [id number] 2.16.840.1.106174.3.579.2. 531 Social History Date Type Detail Facility Start: 09-13-2020 Dept. of ermatology Start: 1950 End: 1950 Sex Assigned At Female [facility] Start: 06-14-2020 End: 01-26-2024 Sex Assigned At [facility] [employer] Other Start: 1950 Sex Assigned At Not on file [facility] Work Phone: Start: 02-21-2023 End: 09-03-2023 Exposure to SARS-CoV-2 (event) Not sure [facility] Start: 03-11-2018 End: 07-04-2022 Tobacco smoking status NHIS Never smoked tobacco (finding) [facility] Start: 07-04-2022 End: 09-03-2023 Tobacco use and exposure Smokeless tobacco non-user [facility] Work Phone: Start: 02-24-2024 End: 06-18-2024 Alcoholic beverage intake Lifetime non-drinker (finding) [facility] Start: 06-14-2020 End: 01-26-2024 History of Social function [facility] Start: 06-12-2023 Alcohol Comment caffeine intak e: more than 4 cups per day [facility] Start: 08-08-2023 End: 02-26-2024 Alcoholic beverage intake Ex-drinker (finding) [facility] Adolescent depressio n screening assessment 0 [facility] Start: 12-06-2014 Sex Female (finding) [facility] Medical Equipment Procedure Code Equipment Code Equipment Origin al Text Equipment Identifier Dates [id number], [id number], [id number], [id number], [id number] Start: 05-17-2022 End: 03-03-2024 Goals Date Patient Goal Desired Activity /State Clinical Notes 04-02-2021 to 06-18-2024 Rajesh Mercer MD - 06/18/2024 11:30 AM Oanh Nova DPM - 04/22/2024 4:15 PM Ruslan Mercer MD - 04/19/2024 4:15 PM ESTTelephone Encounter - Alison Bishop - 04/13/2024 9:44 AM EST Note Date & Type Note Facility 06-18-2024 History of Presen t illness Narrative Images from the original note were not included. HPI Follow-up Additional comments: [facility] stay admitted 06/01/24 dx: UTI,urinary retention,SIRS discharged home 06/02/24 rx for levaquin given Last edited by Miriam Nina LPN on 06/18/2024 11:34 AM. Subjective Patient ID: Chloe Pickens is a 73 y.o. female who presents for Follow-up ([facility] stay admitted 06/01/24 dx: UTI,urinary retention,SIRS discharged home 06/02/24 rx for levaquin given). Flowsheet Row Patient Outreach from 06/07/2024 in [facility] with Jemima Vidal LPN Hospital Information ED, Hospital or Residential Facility Discharge? Hospital Patient has been contacted within two business days of discharge No Have two attempts been made to contact the patient within two business days of being discharged? Yes Diagnosis acute UTI, systemic inflammatory response system Discharge Date 06/02/24 Discharged To: Home Setting Discharge Hospital [facility] Engagement Call Start Time 1551 Admission Date 06/01/24 Medications Discharge medications reviewed and reconciled from hospital? No [unable to reach pt.] Does the patient have all medications ordered at discharge? Not applicable [unable to reach pt.] Appointments Self Management Patient Teaching Wrap Up Call End Time 1555 Pt finished abx since hosp stay pt states she is feeling better not quite 100% yet Current Outpatient Medications on File Prior to Visit Medication Sig Dispense Refill albuterol HFA (Ventolin HFA) 90 mcg/act inhaler Ventolin HFA 90 mcg/actuation aerosol inhaler as needed allopurinol (Zyloprim) 100 MG tablet TAKE 1 TABLET EVERY DAY 90 tablet 3 BD Pen Needle Janny 2nd Gen 32G X 4 MM misc USE 1 FIVE TIMES DAILY biotin 2.5 MG capsule Take 2 tablets by mouth in the morning. Blood Glucose Monitoring Suppl (Here[employer] Verio Flex System) w/Device kit USE TO CHECK GLUCOSE 4 TIMES DAILY carvedilol (Coreg) 12.5 MG tablet carvedilol 12.5 mg tablet Eliquis 5 MG tablet TAKE 1 TABLET TWICE DAILY 180 tablet 3 fenofibrate (Tricor) 145 MG tablet TAKE 1 TABLET EVERY DAY WITH FOOD 100 tablet 3 furosemide (Lasix) 20 MG tablet Take 2 [...] 1 CAPSULE EVERY DAY 90 capsule 3 [employer] VerBlendspace test strip Use one strip to check blood sugar four times a day DX:[id number] Ozempic, 1 MG/DOSE, 4 MG/3ML solution pen-injector Inject 1 mg under the skin once a week sulfamethoxazole-trimethoprim (Bactrim DS) 800-160 MG per tablet TAKE 1 TABLET BY MOUTH IN THE MORNING AND 1 TABLET BEFORE BEDTIME 14 tablet 0 topiramate 50 MG tablet TAKE 1 TABLET TWICE DAILY 180 tablet 3 verapamil ER (Verelan) 240 MG 24 hr capsule TAKE 1 CAPSULE EVERY MORNING 90 capsule 3 [DISCONTINUED] albuterol (2.5 MG/3ML) 0.083% nebulizer solution albuterol sulfate 2.5 mg/3 mL (0.083 %) solution for nebulization Inhale by inhalation route as needed for 20 days. [DISCONTINUED] Fluticasone Furoate-Vilanterol (Breo Ellipta) 200-25 MCG/ACT aerosol powder Inhale 1 puff in the morning. [DISCONTINUED] traMADol (Ultram) 50 MG tablet Take 1 tablet (50 mg) by mouth every 6 (six) hours if needed for severe pain 60 tablet 2 No current facility-administered medications on file prior [...] Diabetes (CMS/HCC) HLD (hyperlipidemia) (CMS/HCC) HTN (hypertension) (CMS/HCC) Past Surgical History: Procedure Laterality Date CHOLECYSTECTOMY CHOLECYSTECTOMY 1994 DIABETES EYE EXAM KNEE SURGERY 2012 SLEEP STUDY BIPAP 16/12cm H20 TUBAL LIGATION 1985 Visit Vitals BP 128/76 Pulse 83 Temp 98.7 F Ht 5' 3.25 Wt 275 lb SpO2 97% BMI 48.33 kg/m Smoking Status Never BSA 2.36 m Review of Systems Objective Physical Exam Constitutional: General: She is not in acute distress. Appearance: She is well-developed. She is obese. Comments: Chronically ill appearing HENT: Head: Normocephalic and atraumatic. Eyes: General: [...] ambulation Psychiatric: Behavior: Behavior normal. Comments: Irritable Clinisync Result Encounter on 06/18/2024 Component Date Value Ref Range Status SODIUM 06/18/2024 137 136 - 145 mmol/L Final POTASSIUM 06/18/2024 4.2 3.5 - 5.1 mmol/L Final CHLORIDE 06/18/2024 102 98 - 107 mmol/L Final CARBON DIOXIDE 06/18/2024 26.6 21.0 - 32.0 mmol/L Final ANION GAP 06/18/2024 12.6 Final GLUCOSE 06/18/2024 172 (H) 74 - 106 mg/dL Final BLOOD UREA NITROGEN 06/18/2024 29.0 (H) 7.0 - 18.0 mg/dL Final CREATININE 06/18/2024 1.36 (H) 0.55 - 1.02 mg/dL Final TB[facility] EGFR-AF CYMRAES 06/18/2024 46 (L) >=60 mL/min/1.73m 2 Final [facility] EGFR-NON AF CYMRAES 06/18/2024 38 (L) >=60 mL/min/1.73m 2 Final BUN CREATININE RATIO 06/18/2024 21.3 Final CALCIUM 06/18/2024 9.1 8.5 - 10.1 mg/dL Final BILIRUBIN TOTAL 06/18/2024 0.4 0.2 - 1.0 mg/dL Final ASPARTATE AMINO TRANSFERASE 06/18/2024 18 15 - 37 U/L Final ALANINE AMINOTRANSFERASE 06/18/2024 18 14 - 59 U/L Final ALKALINE PHOSPHATASE 06/18/2024 49 46 - 116 U/L Final TOTAL PROTEIN 06/18/2024 7.1 6.4 - 8.2 g/dL Final ALBUMIN LEVEL 06/18/2024 3.3 (L) 3.4 - 5.0 g/dL Final GLOBULIN 06/18/2024 3.8 g/dL Final ALBUMIN GLOBULIN RATIO 06/18/2024 0.9 Final MAGNESIUM 06/18/2024 1.9 1.8 - 2.4 mg/dL Final Office Visit on 06/18/2024 Component Date Value Ref Range Status Glucose, UA 06/18/2024 Negative Negative - 1999(110) ++++ mg/dL Final Bilirubin, UA 06/18/2024 Negative Negative - 4(70) +++ mg/dL Final Ketones, UA 06/18/2024 Negative Negative - 160(16) ++++ mg/dL Final Spec Grav, UA 06/18/2024 1.015 1 - 1.03 Final Blood, UA 06/18/2024 Positive Negative - 50 Evens/mcL Final pH, UA 06/18/2024 7.0 5 - 9 Final Protein, UA 06/18/2024 Trace Negative - 2000(20) ++++ mg/dL Final Urobilinogen, UA 06/18/2024 0.2 0.2 - 12 mg/dL Final Leukocytes, UA 06/18/2024 Trace Negative - 500+++ Therese/mcL Final Nitrite, UA 06/18/2024 Negative Negative - Positive Final Clinisync Result Encounter on 05/31/2024 Component Date Value Ref Range Status BLOOD CULTURE 1 05/31/2024 Final Value: Blood Culture 1 NG5D NO GROWTH AT 5 DAYS.^NO GROWTH AT 5 DAYS. BLOOD CULTURE 2 05/31/2024 Preliminary Value: Blood Culture 2 NG3D NO GROWTH AT 36-48 HOURS. FINAL TO FOLLOW.^NO GROWTH AT 36-48 HOURS. FINAL TO FOLLOW. AERIDSUS1 05/31/2024 Final Value: Aerobe ID + Suscept AERIDSUS1 05/31/2024 *ABNORMAL* Final AERIDSUS1 05/31/2024 Gram positive cocci Final AERIDSUS1 05/31/2024 *ABNORMAL* Final AERIDSUS1 05/31/2024 Received anaerobic bottle only. Final AERIDSUS1 05/31/2024 Identification and sensitivities to follow. Final AERIDSUS1 05/31/2024 *ABNORMAL* Final AERIDSUS1 05/31/2024 Gram positive cocci Final AERIDSUS1 05/31/2024 *ABNORMAL* Final AERIDSUS1 05/31/2024 Received anaerobic bottle only. Final AERIDSUS1 05/31/2024 Identification and sensitivities to follow. Final AERIDSUS1 05/31/2024 Organism: Schaalia turicensis : Final AERIDSUS1 05/31/2024 *ABNORMAL* Final AERIDSUS1 05/31/2024 Received anaerobic bottle only. Final AERIDSUS1 05/31/2024 Schaalia turicensis Final AERIDSUS1 05/31/2024 *ABNORMAL* Final AERIDSUS1 05/31/2024 Gram positive cocci Final AERIDSUS1 05/31/2024 *ABNORMAL* Final AERIDSUS1 05/31/2024 Received anaerobic bottle only. Final AERIDSUS1 05/31/2024 Organism nonviable for further study. Final AERIDSUS1 05/31/2024 Organism: Schaalia turicensis : Final AERIDSUS1 05/31/2024 *ABNORMAL* Final AERIDSUS1 05/31/2024 Received anaerobic bottle only. Final AERIDSUS1 05/31/2024 Final Value: O:SCHATU Isolated ANAID1 05/31/2024 Final Value: Anaerobe Identification Only WILL FOLLOW ANAID1 05/31/2024 Specimen has been received and testing has been initiated. Final ANAID1 05/31/2024 Schaalia turicensis Final ANAID1 05/31/2024 Final Value: O:SCHATU Isolated ANAID1 05/31/2024 [facility] Final ANAID1 05/31/[address] [place] [address] [id number] Final ANAID1 05/31/2024 Finished Cloth Checker: Nemesio Shay PhD, Phone: [phone] Final Assessment/Plan Diagnoses and all orders for this visit: 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 ([facility]) - CBC and differential - Comprehensive metabolic panel; Future - Magnesium; Future - POCT Urinalysis dipstick - Suspected source is urinary, UA shows no active infection. Chronic obstructive pulmonary disease, unspecified COPD type (CMS/HCC) - albuterol (2.5 MG/3ML) 0.083% nebulizer solution; Take 3 mL (2.5 mg) by nebulization every 4 (four) hours if needed for wheezing - Fluticasone Furoate-Vilanterol (Breo Ellipta) 200-25 MCG/ACT aerosol powder ; Inhale 1 puff in the morning. Primary osteoarthritis of both knees - traMADol (Ultram) 50 MG tablet; Take 1 tablet (50 mg) by mouth every 6 (six) hours if needed for severe pain Presence of both artificial knee joints - amoxicillin (Amoxil) 500 MG capsule; Take 4 capsules (2,000 mg) by mouth 1 (one) time for 1 dose Take 1 hour prior to procedure. Vitreous hemorrhage, unspecified eye (CMS/HCC) Malignant melanoma of left upper limb, including shoulder (CMS/HCC) Pulmonary hypertension, unspecified (CMS/HCC) Morbid (severe) obesity due to excess calories (CMS/HCC) Body mass index (BMI) 45.0-49.9, adult (CMS/HCC) Type 2 diabetes mellitus with diabetic chronic kidney disease (CMS/HCC) Chronic kidney disease, stage 3b (HCC) (CMS/HCC) Major depressive disorder, recurrent, moderate (CMS/HCC) Follow up if symptoms worsen or fail to improve, for As Previously Scheduled. documented in this encounter [facility] 04-22-2024 History of Presen t illness Narrative [...] future. RTC: prn. documented in this encounter [facility] 04-19-2024 History of Presen t illness Narrative [...] in the morning. Blood Glucose Monitoring Suppl (Myoonetio Flex System) w/Device kit USE TO CHECK [...] 1 CAPSULE EVERY DAY 90 capsule 3 Debteye test strip Use one strip to check [...] Do you have a medical power of transactional attorney?: No Objective : BP 122/70 Pulse [...] April 19, 2024 documented in this encounter [facility] 04-13-2024 Miscellaneous Notes LM that she is very concerned on the jardiance. In last 24 hours she has developed a sore on her labia. She uses [facility] in [place]. Asking if anything can be called in. [...] PCP. Patient informed. documented in this encounter [facility] 04-13-2024 Telephone encounter Note LM that she is very concerned on the jardiance. In last 24 hours she has developed a sore on her labia. She uses [facility] in [place]. Asking if anything can be called in. Also should she stop taking the medication for now? [facility] 04-13-2024 Telephone encounter Note I recommend she stop the Jardiance until the infection has healed. She also needs to let Nephrology know as I believe they prescribe the Jardiance. I did send in a prescription for a topical cream for her to place on the sore. If it is not improving in the next 24-48 hours, recommend she see her PCP. [facility] 04-13-2024 Telephone encounter Note Patient informed. [facility] 03-25-2024 History of Presen t illness Narrative [...] future. RTC: prn. documented in this encounter [facility] 02-26-2024 History of Presen t illness Narrative Images from the original note were not included. REASON FOR VISIT: Chloe Pickens returns today [...] daily. CGM reviewed, some lows in the ssrs report developer and miday. Past Medical History: Diagnosis Date Diabetes mellitus ([facility]) Kidney disease Tremor Past Surgical History: Procedure [...] , Rfl: blood-glucose meter (ONETOUCH VERIO METER) [facility], Use daily 4 times a day DX:E11.65, [...] mouth., Disp: , Rfl: blood sugar diagnostic (GITRUCH VERIO TEST STRIPS) strip, Use one strip [...] coma, without long-term current use of insulin ([facility]) - POCT Hemoglobin A1c - blood sugar [...] clinic: 3 months documented in this encounter [facility] 02-26-2024 Instructions Gina Bustillo MD - 02/26/2024 11:45 AM EDT Reduce Tresiba to 60 units twice/day Call the office if still having low blood sugars documented in this encounter [facility] 02-24-2024 History of Presen t illness [...] future. RTC: prn. documented in this encounter [facility] 01-29-2024 Telephone encounter Note OARRS reviewed, Rx sent into patient's pharmacy. It was an initial script after a big gap of time. Had to start with 5 day supply. [facility] 01-29-2024 Miscellaneous Notes OARRS reviewed, Rx sent into patient's pharmacy. It was an initial script after a big gap of time. Had to start with 5 day supply. Pt stated she needs a refill of tramodol (I'm not seeing it on her med list.) The last prescription was only for 20. It was originally 60. She's down to 5 pills. She's using [facility] [place] documented in this encounter [facility] 01-29-2024 Telephone encounter Note Pt stated she needs a refill of tramodol (I'm not seeing it on her med list.) The last prescription was only for 20. It was originally 60. She's down to 5 pills. She's using [facility] [place] [facility] 01-26-2024 History of Presen t illness Narrative [...] future. RTC: prn. documented in this encounter [facility] 01-16-2024 History of Presen t illness Narrative [...] in the morning. Blood Glucose Monitoring Suppl (HereOrThere Verio Flex System) w/Device kit USE TO [...] 1 CAPSULE EVERY DAY 100 capsule 3 OneTouch Verio test strip Use [...] Diabetes (CMS/HCC) HLD (hyperlipidemia) (CMS/HCC) HTN (hypertension) (CMS/HCC) Past Surgical History: Procedure Laterality Date CHOLECYSTECTOMY CHOLECYSTECTOMY 1994 DIABETES EYE EXAM KNEE SURGERY 2013 SLEEP STUDY BIPAP 16/12cm H20 TUBAL LIGATION [...] time. She will have them done at [facility]. Will notify pt of the results once [...] unspecified (CMS/HCC) The patient is seeing a medical assistant ob gyn for this condition, treatment is deferred to that specialist. Correspondence from that specialist and any available testing were reviewed during today's visit. Major depressive disorder, recurrent, moderate (HCC) (CMS/HCC) This is a chronic medical condition that is stable since last assessment. No changes in treatment are suggested at this time. Vitreous hemorrhage, unspecified eye (CMS/HCC) The patient is seeing a medical assistant ob gyn for this condition, treatment is deferred to that specialist. Correspondence from that specialist and any available testing were reviewed during today's visit. Follow up in about 6 weeks (around 02/27/2024) for Medicare Wellness Visit. documented in this encounter [facility] 11-25-2023 History of Presen t illness Narrative REASON FOR VISIT: Chloe Steward Mitch returns today for follow-up of diabetes. DIABETES HISTORY: Type of Diabetes: Type 2 Diabetes Duration of Diabetes: since 2000 INTERVAL HISTORY: ELIAS was August with HgA1c of 7.7%. Today's is 7.5%. Complains of a lot of hypoglycemia. Switched to Ozempic and is having a lot of nausea. Has not been able to eat much. Trulicity has not been available. DIABETES COMPLICATIONS/SURVEILLANCE: Retinopathy: yes Last eye exam: 2023 Nephropathy: yes on Kerendia and Jardiance Neuropathy: no CAD: no GLUCOSE CONTROL: Diabetes medications: Tresiba 70 units twice a day Novolog 50 units at breakfast and 55 units at supper Jardiance 25mg daily Ozempic 1 mg weekly Previous diabetic medications: Blood glucose summary: Patient is checking glucose frequently via continuous glucose sensor. Using the Dexcom sensor routinely. Taking insulin 4 times daily. CGM reviewed, 14d avg of 179. Time in range is 59% with <0% hypoglycemia. Blood sugars are running in the mid-100's. Has some mild drops in the mornings. Rise slightly in the evenings. Past Medical History: Diagnosis Date Diabetes mellitus ([facility]) Kidney disease Tremor Past Surgical History: Procedure [...] route., Disp: , Rfl: blood sugar diagnostic (ONETOUCH VERIO TEST STRIPS) strip, Use one strip to check blood sugar four times a day DX:e11.69, Disp: 400 strip, Rfl: 3 blood-glucose meter (ONETOUCH VERIO METER) [facility], Use daily 4 times a day DX:E11.65, [...] EXAM: Wt Readings from Last 3 Encounters: 11/25/23 131 kg (288 lb 11.2 oz) 08/08/23 131.8 kg (290 lb 9.6 oz) 12/20/22 132.2 kg (291 lb 6.4 oz) Body mass index is 49.56 kg/m . Vitals: 11/25/23 1152 BP: 126/72 Pulse: 88 Weight: 131 kg (288 lb 11.2 oz) Physical Exam Vitals reviewed. Constitutional: General: [...] hyperglycemia, with long-term current use of insulin ([facility]) - POCT Hemoglobin A1c Hemoglobin A1c is slightly better. We discussed decreasing the Ozempic or switching her to Mounjaro, but she wants to continue with the 1 mg Ozempic for right now. She is having some hypoglycemia overnight. I will have her decrease the Tresiba to 68 units twice a day. 2. Primary hypertension Blood pressure is well controlled. No changes 3. Mixed hyperlipidemia - Lipid panel; Future A1c elevation is associated with significant risk [...] Return to clinic: 3 months HOMER Salcedo 11/25/23 1240 documented in this encounter [facility] 10-27-2023 Miscellaneous Notes LM that pharmacy cannot get the 3mg doseTrulicity. She states she talked to pharmacy, she would either need to inject 2 of the 1.5mg injections or something else. Please advise. She mentioned concern that she missed shot last friday and recently saw retina specialist last week for eye infection that is most likely d/t complications with blood sugars. Please advise. Please let patient know that I sent a prescription for Ozempic 1 mg weekly for her to switch to. Patient informed. documented in this encounter [facility] 10-27-2023 Telephone encounter Note LM that pharmacy cannot get the 3mg doseTrulicity. She states she talked to pharmacy, she would either need to inject 2 of the 1.5mg injections or something else. Please advise. She mentioned concern that she missed shot last friday and recently saw retina specialist last week for eye infection that is most likely d/t complications with blood sugars. Please advise. [facility] 10-27-2023 Telephone encounter Note Please let patient know that I sent a prescription for Ozempic 1 mg weekly for her to switch to. [facility] 10-27-2023 Telephone encounter Note Patient informed. T [facility] 09-03-2023 History of Presen t illness [...] fibrosis of skin documented in this encounter [facility] Work Phone: 08-08-2023 History of Presen t illness Narrative REASON FOR VISIT: Chloe Bin Pickens returns [...] Past Medical History: Diagnosis Date Diabetes mellitus ([facility]) Kidney disease Tremor Past Surgical History: Procedure [...] route., Disp: , Rfl: blood sugar diagnostic (ONETOUCH VERIO TEST STRIPS) strip, Use one strip to check blood sugar four times a day DX:e11.69, Disp: 400 strip, Rfl: 3 blood-glucose meter (ONETOUCH VERIO METER) [facility], Use daily 4 times a day DX:E11.65, [...] hyperglycemia, with long-term current use of insulin ([facility] - POCT Hemoglobin A1c Blood sugars drop [...] Salcedo 08/08/23 1411 [facility] 2023 Miscellaneous Notes OK to sign and send. Added note to have patient schedule appt documented [facility] this [facility] [employer] 2023 Telephone encounter Note OK to sign and send. Added note to have patient schedule appt [email or web address] Evaluation note Encounter Date Diagnosis Assessment Notes Feb, Dyspnea (ICD-10 - R06.00) Feb, Lymphadenopathy (ICD-10 - R59.1) Feb, Rhinitis (ICD-10 - J31.0) [employer] Other 10-30-2023 History of Present illness Narrative* [...] Scribe Attestation By signing my name below, IMariana Scribe attest that this documentation has been prepared under the direction and in the presence of Reyna Rdz MD. [facility] Work Phone: [phone]) 799-458208-15-2023 Evaluation note* Encounter Date Diagnosis Assessment Notes Treatment Notes Treatment Clinical Notes Dec, Hypertensive chronic kidney disease with stage 1 through stage 4 chronic kidney disease, or unspecified chronic kidney disease (ICD-10 - I12.9) [employer] Other 07-26-2023 Evaluation note* Encounter Date Diagnosis [...] advised her to continue to work with wellness director for DM management. She has no evidence of proteinuria. Continue current dose of losartan for renal protection. Continue Jardiance and Kerendia Nov, Vitamin D deficiency (ICD-10 - E55.9) Her calcium and vitamin D are within the goal. Continue oral vitamin D. [employer] Other 05-02-2023 Evaluation note* Encounter Date Diagnosis Assessment Notes Treatment Notes Treatment Clinical Notes September, Dyspnea (ICD-10 - R06.00) September, Lymphadenopathy (ICD-10 - R59.1) September, Rhinitis (ICD-10 - J31.0) [employer] Other 04-27-2023 Evaluation note* Encounter Date Diagnosis [...] advised her to continue to work with wellness director for DM management. She has no evidence of proteinuria. Continue current dose of losartan for renal protection. Continue Jardiance and Kerendia Aug, Vitamin D deficiency (ICD-10 - E55.9) Her calcium and vitamin D are within the goal. Continue oral vitamin D. [employer] Other 03-13-2023 Evaluation note* Encounter Date Diagnosis [...] advised her to continue to work with wellness director for DM management. She has no evidence of proteinuria. Continue current dose of losartan for renal protection. Continue Jardiance and Kerendia Jul, Vitamin D deficiency (ICD-10 - E55.9) Her calcium and vitamin D are within the goal. Continue oral vitamin D. [employer] Other 01-04-2023 Evaluation note* Encounter Date Diagnosis Assessment Notes Treatment Notes Treatment Clinical Notes May, Type 2 diabetes mellitus with diabetic chronic kidney disease (ICD-10 - E11.22) [employer] Other 10-31-2022 Evaluation note* Encounter Date Diagnosis Assessment Notes Treatment Notes Treatment Clinical Notes Feb, Dyspnea (ICD-10 - R06.00) 31 Feb, 2022 Lymphadenopathy (ICD-10 - R59.1) [employer] Other 10-20-2022 Evaluation note* Encounter Date Diagnosis [...] advised her to continue to work with wellness director for DM management. She has no evidence of proteinuria. Continue current dose of losartan for renal protection. She will be benefit with SGLT2 inhibitors including Farxiga and Jardiance. Advised to discuss with endocrine Feb, Vitamin D deficiency (ICD-10 - E55.9) Her calcium and vitamin D are within the goal. Continue oral vitamin D. [employer] Other 06-21-2022 Evaluation note* Encounter Date Diagnosis [...] advised her to continue to work with wellness director for DM management. She has no evidence of proteinuria. Continue current dose of losartan for renal protection Oct, Vitamin D deficiency (ICD-10 - E55.9) Her calcium and vitamin D are within the goal. Continue oral vitamin D. [employer] Other 05-31-2022 Evaluation note* Encounter Date Diagnosis Assessment Notes Treatment Notes Treatment Clinical Notes September, Dyspnea (ICD-10 - R06.00) September, Lymphadenopathy (ICD-10 - R59.1) [employer] Other 12-15-2021 Evaluation note* Encounter Date Diagnosis [...] advised her to continue to work with wellness director for DM management. She has no evidence of proteinuria. Continue current dose of losartan for renal protection Apr, Vitamin D deficiency (ICD-10 - E55.9) Her calcium and vitamin D are within the goal. Continue oral vitamin D. [employer] Other 11-29-2021 Evaluation note* Encounter Date Diagnosis Assessment Notes Treatment Notes Treatment Clinical Notes Mar, Dyspnea (ICD-10 - R06.00) [employer] Other Evaluation noteN/ADept. of Dermatology Evaluation noteNo InformationNort [employer] Other Evaluation noteNo assessment information available [facility] Work Phone: Evaluation note* Diagnosis Furuncle- Primary Carbuncle and furuncle of unspecified site Melanocytic nevus, unspecified location Lentigo Other dyschromia Hemangioma of other sites Seborrheic keratosis Scar conditions and fibrosis of skin Scar condition and fibrosis of skin Personal history of malignant melanoma of skin documented in this encounter [facility] Work Phone: Evaluation note* Diagnosis Onset Date Resolution Status CKD (chronic kidney disease) stage 4, GFR 15-29 ml/min acute Hyperlipidemia acute [id number] acute Nephrolithiasis, uric acid a cute Type 2 diabetes mellitus wit h diabetic chronic kidney disease acute Vitamin D deficiency acute [facility] Work Phone: Evaluation note* Diagnosis Fissure in skin- Primary Other [...] fibrosis of skin documented in this encounter [facility] Work Phone: Evaluation note* Diagnosis Onset Date Resolution Status Chronic kidney disease, stage 3 unspecified acute CKD (chronic kidney disease) stage 4, GFR 15-29 ml/min acute Hyperlipidemia acute [id number] acute Nephrolithiasis, uric acid a cute Type 2 diabetes mellitus wit h diabetic chronic kidney disease acute [facility] Work Phone: Evaluation note* Diagnosis Ingrown toenail- Primary Ingrowing nail Left foot pain Pain in soft tissues of limb documented in this encounter [facility] HealthcareEvaluation note* Diagnosis Primary osteoarthritis of both knees- Primary documented in this encounter [facility] HealthcareEvaluation note* Diagnosis Ingrown toenail- Primary Ingrowing nail Left foot pain Pain in soft tissues of limb Onychomycosis Dermatophytosis of nail Type 2 diabetes mellitus without complication, without long-term current use of insulin ([facility]) documented in this encounter [facility] HealthcareEvaluation note* Diagnosis Acute pain of right knee- Primary Primary osteoarthritis of both knees Sore on scalp Diarrhea, unspecified type Morbid (severe) obesity due to excess calories ([facility]) Body mass index (BMI) 50.0-59.9, adult ([facility]) Chronic obstructive pulmonary disease, unspecified ([facility]) Major depressive disorder, recurrent, moderate ([facility]) Major depressive disorder, recurrent episode, moderate Vitreous hemorrhage, unspecified eye ([facility] [facility]) documented in this encounter [facility] HealthcareEvaluation note* Diagnosis Routine general medical examination at health care facility- Primary Routine general medical examination at a health care facility ACP (advance care planning) Other specified counseling Primary osteoarthritis of both knees Sore on scalp documented in this encounter [facility] HealthcareEvaluation note* Diagnosis Primary osteoarthritis of both knees documented in this encounter [facility] HealthcareEvaluation note* Diagnosis Ingrown toenail- Primary Ingrowing nail Left foot pain Pain in soft tissues of limb documented in this encounter [facility] HealthcareEvaluation note* Diagnosis Type 2 diabetes mellitus with hyperglycemia, with long-term current use of insulin ([facility] documented in this encounter [facility]* Diagnosis 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 ([facility])- Primary Chronic obstructive pulmonary disease, unspecified COPD type ([facility]) Primary osteoarthritis of both knees Presence of both artificial knee joints Vitreous hemorrhage, unspecified eye ([facility]) Malignant melanoma of left upper limb, including shoulder ([facility]) Pulmonary hypertension, unspecified ([facility]) Morbid (severe) obesity due to excess calories ([facility]) Body mass index (BMI) 45.0-49.9, adult ([facility]) Type 2 diabetes mellitus with diabetic chronic kidney disease ([facility]) Chronic kidney disease, stage 3b (HCC) ([facility]) Major depressive disorder, recurrent, moderate ([facility]) Major depressive disorder, recurrent episode, moderate documented in this encounter [facility] HealthcareEvaluation note* Diagnosis Type 2 diabetes mellitus with hyperglycemia, with long-term current use of insulin ([facility] Primary documented in this encounter [facility] note* Diagnosis Type 2 diabetes mellitus with hyperglycemia, with long-term current use of insulin ([facility]) documented in this encounter [facility]* Diagnosis Type 2 diabetes mellitus with hypoglycemia without coma, without long-term current use of insulin ([facility] Primary documented in this encounter [facility]* Diagnosis Type 2 diabetes mellitus with hyperglycemia, with long-term current use of insulin ([facility] Primary Primary hypertension Unspecified essential hypertension Mixed hyperlipidemia documented in this encounter [facility] note* Diagnosis Type 2 diabetes mellitus with hyperglycemia, with long-term current use of insulin ([facility] Diagnosis Type 2 diabetes mellitus with hyperglycemia, with long-term current use of insulin ([facility] Primary Primary hypertension Unspecified essential hypertension [facility] Diagnosis Type 2 diabetes mellitus with hypoglycemia without coma, without long-term current use of insulin ([facility] Primary Primary hypertension Unspecified essential hypertension Mixed hyperlipidemia [facility] Diagnosis Type 2 diabetes mellitus with hypoglycemia without coma, without long-term current use of insulin ([facility] Diagnosis Tinea cruris- Primary Dermatophytosis of groin and perianal area documented in this encounter [facility] general Narrative - Reported* Type Description Date [...] BLOOD CLOTS IN BOTH LUNG S 2016 [employer] Other Hispzbn general Narrative - Reported* Type Description Date [...] BLOOD CLOTS IN BOTH LUNG S 2016 [employer] Other Hiskyji general Narrative - Reported* Type Description Date [...] BLOOD CLOTS IN BOTH LUNG S 2016 [employer] Other History general Narrative - Reported* Type [...] BLOOD CLOTS IN BOTH LUNG S 2016 [employer] Other History of Present illness Narrative* Ms. [...] any other skin lesions. She saw her Telegraph Lineman Dr. Kelley and underwent a biopsy of [...] than it was at my last visit. [facility] Work Phone: History of Present illness Narrative* [...] any other skin lesions. She saw her Telegraph Lineman Dr. Kelley and underwent a biopsy of [...] than it was at my last visit. [facility] Work Phone: History of Present illness Narrative* [...] any other skin lesions. She saw her Telegraph Lineman Dr. Kelley and underwent a biopsy of [...] than it was at my last visit. [facility] Work Phone: History of Present illness Narrative* [...] any other skin lesions. She saw her Telegraph Lineman Dr. Kelley and underwent a biopsy of [...] biopsies. She is being seen by a Felt Cutting Machine Operator for various issues including Left arm swelling. [...] to the telephone nature of the visit [facility] Work Phone: InstructionsNot on filedocumented in this encounter [employer] SystemInstructionsNot on filedocumented in this encounter [facility] on filedocumented in this encounter [facility]Not on filedocumented in this encounter [facility] for [facility] (narrative)* Name Reason for referral NA NA Dept. of Dermatology Summary Purpose Family History Unknown Family Member Name Dates Details Family [...] Diabetes mellitus Unknown sister Unknown Advance Directives Advance Directive Response Recorded Date/ Time Advance [...] disease) stage 4, GFR 15-29 ml/min Hyperlipidemia [id number] Nephrolithiasis, uric acid Type 2 diabetes mellitus with diabetic chronic kidney disease Vitamin D deficiency Chief Complaint I12.9 N18.30 R60.0 N 20.0 E11.22 E55.9 RENAL 6 month follow up n18.4 e11.22 n20.0i 112.9 Reason for Visit CKD (chronic kidney disease) stage 4, GFR 15-29 ml/min Hyperlipidemia [id number] Nephrolithiasis, uric acid Type 2 diabetes mellitus with diabetic chronic kidney disease Vitamin D deficiency Chief Complaint E11.22 N20.0 E78.5 N 18.4 E55.9 RENAL 4 MONTH F/U Reason for Visit Chronic kidney disea se, stage 3 unspecified CKD (chronic kidney disease) stage 4, GFR 15-29 ml/min Hyperlipidemia [id number] Nephrolithiasis, uric acid Type 2 diabetes mellitus with diabetic chronic kidney disease Reason for Referral Specialty Diagnoses / Procedures Referred By Aleshia quinn Referred To Contact Diagnoses Reyna Bernal MD [address], [address] [address] Referral ID Status Reason Start Date Expiration Date V isits Requested Visits Authorized [id number] Pending Review 1 1 Additional Source Comments INFORMATION SOURCE (unrecogn ized section and content) DATE CREATED AUTHOR 04/12/2018 [facility] DATE CREATED AUTHOR AUTHOR'S ORGANIZ ATION 10/14/2018 [facility] DATE CREATED AUTHOR AUTHOR'S ORGANIZ ATION 11/21/2019 [facility] DATE CREATED AUTHOR AUTHOR'S ORGANIZ ATION 06/21/2021 [facility] DATE CREATED AUTHOR AUTHOR'S ORGANIZ ATION 10/08/2021 [facility] DATE CREATED AUTHOR AUTHOR'S ORGANIZ ATION 09/15/2022 [facility] DATE CREATED AUTHOR AUTHOR'S ORGANIZ ATION 09/05/2023 [facility] DATE CREATED AUTHOR AUTHOR'S ORGANIZ ATION 02/28/2024 [facility] DATE CREATED AUTHOR AUTHOR'S ORGANIZ ATION 04/20/2024 [facility] DATE CREATED AUTHOR AUTHOR'S ORGANIZ ATION 05/27/2024 [facility] DATE CREATED AUTHOR AUTHOR'S ORGANIZ ATION 06/20/2024 [facility] d[facility] Specialists EPIC REASON FOR VISIT (unrecogniz ed section and content) Reason Comments Skin Check Suspicious Skin Lesion Reason Comments Skin Check 6 months Reason Onset Date Comments Med Refill 03/01/2024 Reason Comments Medicare Annual Wellness Visit Subsequen t Med Refill Bactrim ds and trama dol-- tsering chavez Reason Comments Med Refill Reason Comments Follow-up [facility] stay admitted dx: UTI,urinary retention,SIRS discharged home 06/02/24 rx for levaquin given Reason Onset Date Comments Med Refill 2023 Reason Comments Diabetes Mellitus Reason Comments Diabetes Reason Comments Med Change Request Care Teams (unrecognized sec tion and content) Team Status: Active Member Role Status Dates Rajesh Mercer II MD Primary Care Provider Active Team Status: Inactive Member Role Status Dates Rajesh Mercer II MD Primary Care Provider Active Dilan Nguyễn MD Attending Provider Active Director Of Elementary Education Relationship Specialty Start Date End Date Rajesh Mercer MD [address] [facility] [address] [place] [address] PCP - General 01/03/23 Team Status: Inactive [...] July 21, 2023 End: July 21, 2023 Director Of Elementary Education Relationship Specialty Start Date End Date Rajesh Mercer MD [address] [facility] [address] [place] [address] PCP - General 01/03/23 Team Status: Inactive [...] November 13, 2023 End: November 13, 2023 Director Of Elementary Education Relationship Specialty Start Date End Date Rajesh Mercer MD [address] [place] [address] PCP - General Internal Medicine 10/18/22 Rajesh Mercer MD [address] [place] [address] PCP - ACO Reach 07/04/23 Director Of Elementary Education Relationship Specialty Start Date End Date Rajesh Mercer MD [address] [place] [address] PCP - General Internal Medicine 10/18/22 Rajesh Mercer MD [address] [place] [address] PCP - ACO Reach 07/04/23 Director Of Elementary Education Relationship Specialty Start Date End Date Rajesh Mercer MD [address] [place] [address] PCP - General Internal Medicine 10/18/22 Rajesh Mercer MD [address] [place] [address] PCP - ACO Reach 07/04/23 Director Of Elementary Education Relationship Specialty Start Date End Date Rajesh Mercer MD [address] [place] [address] PCP - General Internal Medicine 10/18/22 Rajesh Mercer MD [address] [place] [address] PCP - ACO Reach 07/04/23 Director Of Elementary Education Relationship Specialty Start Date End Date Rajesh Mercer MD [address] [place] [address] PCP - General Internal Medicine 10/18/22 Rajesh Mercer MD [address] [place] [address] PCP - ACO Reach 07/04/23 Director Of Elementary Education Relationship Specialty Start Date End Date aRjesh Mercer MD [address] [place] [address] PCP - General Internal Medicine 10/18/22 Rajesh Mercer MD [address] [place] [address] PCP - ACO Reach 07/04/23 Director Of Elementary Education Relationship Specialty Start Date End Date Rajesh Mercer MD [address] [place] [address] PCP - General Internal Medicine 10/18/22 Rajesh Mercer MD [address] [place] [address] PCP - ACO Reach 07/04/23 Director Of Elementary Education Relationship Specialty Start Date End Date Rajesh Mercer MD [address] [place] [address] PCP - General Internal Medicine 10/18/22 Rajesh Mercer MD [address] [place] [address] PCP - ACO Reach 07/04/23 Director Of Elementary Education Relationship Specialty Start Date End Date Rajesh Mercer MD [address] [place] [address] PCP - General Internal Medicine 10/18/22 Rajesh Mercer MD [address] [place] [address] PCP - ACO Reach 07/04/23 Director Of Elementary Education Relationship Specialty Start Date End Date Rajesh Mercer MD [address] [place] [address] PCP - General Internal Medicine 10/18/22 Rajesh Mercer MD [address] [place] [address] PCP - ACO Reach 07/04/23 Director Of Elementary Education Relationship Specialty Start Date End Date Rajesh Mercer MD [address] [place] [address] PCP - General Internal Medicine 10/18/22 Rajesh Mercer MD [address] [place] [address] PCP - ACO Reach 07/04/23 Director Of Elementary Education Relationship Specialty Start Date End Date Rajesh Mercer MD [address] [place] [address] PCP - General Internal Medicine 02/03/20 Director Of Elementary Education Relationship Specialty Start Date End Date Rajesh Mercer MD [address] [place] [address] PCP - General Internal Medicine 10/18/22 Rajesh Mercer MD [address] [place] [address] PCP - ACO Reach 07/04/23 Corry Rodriguez RN [facility] 06/11/24 Director Of Elementary Education Relationship Specialty Start Date End Date Rajesh Mercer MD [address] [place] [address] PCP - General Internal Medicine 10/18/22 Rajesh Mercer MD [address] [place] [address] PCP - ACO Reach 07/04/23 Corry Rodriguez, RN [facility] 06/11/24 Director Of Elementary Education Relationship Specialty Start Date End Date Rajesh Mercer MD [address] [place] [address] PCP - General Internal Medicine 10/18/22 Rajesh Mercer MD [address] [place] [address] PCP - ACO Reach 07/04/23 Corry Rodriguez RN [facility] 06/11/24 Director Of Elementary Education Relationship Specialty Start Date End Date Rajesh Mercer MD [address] [place] [address] PCP - General Internal Medicine 02/03/20 Director Of Elementary Education Relationship Specialty Start Date End Date Rajesh Mercer MD [address] [place] [address] PCP - General Internal Medicine 02/03/20 Director Of Elementary Education Relationship Specialty Start Date End Date Rajesh Mercer MD [address] [place] [address] PCP - General Internal Medicine 02/03/20 Director Of Elementary Education Relationship Specialty Start Date End Date Rajesh Mercer MD [address] [place] [address] PCP - General Internal Medicine 02/03/20 Director Of Elementary Education Relationship Specialty Start Date End Date Rajesh Mercer MD [address] [place] [address] PCP - General Internal Medicine 02/03/20 Goals (unrecognized section and content) Goals may [...] BE BASED ON THE PRIMARY CLINICAL RECORDS. [facility] [employer] [facility]. provides no warranty or guarantee of the accuracy or completeness of information in this document.
--- NOTE | 2024-06-30 20:20 | ED.GENADUL1 ---
Documented by User: BALBIR Bernstein 06/30/24 21:53 HPI HPI - General Adult General Chief complaint: Weakness Stated complaint: WEAKNESS Time Seen by Provider: 06/30/24 20:15 Source: patient Mode of arrival: ambulance History of Present Illness HPI narrative: Patient is a 73-year-old female who presents to the emergency department for generalized weakness, shaking and fever. She was seen in this emergency department 1 month ago and hospitalized for weakness, confusion and urinary retention. She had positive blood cultures and completed a course of Levaquin. She states she was feeling well until today when she had a return of feeling generally weak, shaky. EMS reports the patient had a temperature 102.0 ?F earlier, she is afebrile on arrival to the ER. She believes she took Tylenol several hours ago. No sick contacts in the home. She denies any areas of pain on arrival. She was able to eat and drink earlier in the day, she has had no vomiting, diarrhea, chest pain, abdominal pain, shortness of breath. She denies cough or congestion. Related Data Home Medications ?Medication ?Instructions ?Recorded ?Confirmed allopurinol 100 mg tablet 100 mg PO DAILY 05/31/24 06/30/24 apixaban 5 mg tablet (Eliquis) 5 mg PO BID 05/31/24 06/30/24 biotin 2,500 mcg capsule 2.5 mg PO DAILY 05/31/24 06/30/24 fenofibrate nanocrystallized 145 145 mg PO QDAY 05/31/24 06/30/24 mg tablet finerenone 20 mg tablet (Kerendia) 20 mg PO DAILY 05/31/24 06/30/24 fluticasone furoate 200 1 inh inhalation DAILY 05/31/24 06/30/24 mcg-vilanterol 25 mcg/dose inhalation powder (Breo Ellipta) furosemide 20 mg tablet 20 mg PO DAILY 05/31/24 06/30/24 insulin aspart U-100 100 unit/mL 50 unit subcut Q12H 05/31/24 05/31/24 (3 mL) subcutaneous pen (Novolog FlexPen U-100 Insulin aspart) insulin degludec 200 unit/mL (3 70 unit subcut Q12H 05/31/24 05/31/24 mL) subcutaneous pen (Tresiba FlexTouch U-200 insulin) loperamide 2 mg capsule 2 mg PO Q6H PRN loose stool 05/31/24 06/30/24 losartan 100 mg tablet 100 mg PO DAILY 05/31/24 06/30/24 omeprazole 20 mg capsule,delayed 20 mg PO DAILY 05/31/24 06/30/24 release semaglutide 1 mg/dose (4 mg/3 mL) 1 mg subcut .week 05/31/24 06/30/24 subcutaneous pen injector (Ozempic) topiramate 50 mg tablet 50 mg PO Q12H 05/31/24 06/30/24 tramadol 50 mg tablet 50 mg PO Q6H PRN pain 05/31/24 06/30/24 verapamil 240 mg 24 hr 240 mg PO DAILY 05/31/24 06/30/24 capsule,extended release vit C 250 mg-vit E 90 mg-zinc 40 1 tab PO BID 05/31/24 06/30/24 mg-copper 1 [id number] capsule (PreserVision AREDS-2) albuterol sulfate 2.5 mg/3 mL 2.5 mg inhalation Q4H PRN 06/30/24 06/30/24 (0.083 %) solution for nebulization shortness of breath or wheezing Allergies Allergy/AdvReac Type Severity Reaction Status Date / Time doxycycline AdvReac Severe Nausea Verified 05/31/24 17:26 Opioid HPI Opioid Management Most Recent Opioid Data: Last Pain Scale 8 06/02/24 09:22 06/02/24 Last Pain Intensity 2 06/01/24 15:25 06/01/24 Last ORT Total Score 0 05/31/24 20:24 05/31/24 Last ORT Risk Category Low Risk 05/31/24 20:24 05/31/24 Review of Systems ROS Constitutional Reports: fever, fatigue and malaise; Denies: chills Ears, nose, mouth, and throat Denies: throat pain or nasal congestion Cardiovascular Denies: chest pain Respiratory Denies: shortness of breath or cough Gastrointestinal Denies: abdominal pain, nausea, vomiting or diarrhea Integumentary/Breast Denies: rash Hematologic/Lymphatic Denies: easy bruising or easy bleeding [facility] Medical History (Updated 06/30/24 @ 23:16 by Prince Napier MD) Acute urinary retention ?R33.8 - Other retention of urine (ICD-10) SIRS (systemic inflammatory response syndrome) ?R65.10 - Systemic inflammatory response syndrome (SIRS) of non-infectious origin without acute organ dysfunction (ICD-10) Fever ?R50.9 - Fever, unspecified (ICD-10) Generalized weakness ?R53.1 - Weakness (ICD-10) Obesity ?E66.9 - Obesity, unspecified (ICD-10) Macular degeneration ?H35.30 - Unspecified macular degeneration (ICD-10) Occasional tremors ?R25.1 - Tremor, unspecified (ICD-10) Asthma ?J45.909 - Unspecified asthma, uncomplicated (ICD-10) HTN (hypertension) ?I10 - Essential (primary) hypertension (ICD-10) Blood clot in vein ?I82.90 - Acute embolism and thrombosis of unspecified vein (ICD-10) Kidney disease ?N28.9 - Disorder of kidney and ureter, unspecified (ICD-10) Diabetes ?E11.9 - Type 2 diabetes mellitus without complications (ICD-10) Surgical History (Updated 05/31/24 @ 21:17 by Ana Cristina Westbrook) History of cataract surgery ?Z98.49 - Cataract extraction status, unspecified eye (ICD-10) History of tonsillectomy ?Z90.89 - Acquired absence of other organs (ICD-10) History of knee replacement (Unknown) ?Z96.659 - Presence of unspecified artificial knee joint (ICD-10) Hx of cholecystectomy ?Z90.49 - Acquired absence of other specified parts of digestive tract (ICD-10) Family History (Updated 05/31/24 @ 20:29 by Kayleigh Tello) Father Family history of CHF (congestive heart failure) Family history of cancer Family history of myocardial infarction Mother Family history of diabetes mellitus Family history of hypertension Family history of myocardial infarction Family history of stroke Social History Within the past year, how often did you have a drink containing alcohol: never Score interpretation: A score less than 3 is consistent with normal alcohol consumption. Smoking status: Former smoker Non-prescribed substance use: denies use Previous occupational history: retired Highest level of school completed/degree received: some college, no degree Are you now , , , , never or living with a partner: In a typical week, how many times do you talk on the telephone with family, friends, or neighbors: 3 or more times per week How often do you get together with friends or relatives: once per week How often do you attend holiness or yazidism services: never Do you belong to any clubs or organizations such as holiness groups unions, fraternal or athletic groups, or school groups: no Total score: 2 Score interpretation: A score of greater than or equal to 2 indicates the lowest level of social isolation. Little interest or pleasure in doing things: not at all Feeling down, depressed, or hopeless: not at all Feel stressed/tense/nervous/anxious/difficulty sleeping: not at all Do you think of yourself as: straight/heterosexual Gender Identity: female Exam Narrative Exam Narrative: Gen.: Awake, alert, in no distress Head: Normocephalic, atraumatic ENT: Moist mucous membranes Respiratory: No respiratory distress, lungs clear bilaterally Cardio: Regular rate and rhythm Gastrointestinal: Abdomen is soft, nondistended and nontender to palpation Extremities: Moves extremities equally, no injuries noted Psych: Normal mood and affect Neuro: No focal neuro deficit Skin: Warm, dry, intact Constitutional Vital Signs, click to edit/add: Last Vital Signs Temp 98.5 F 06/30/24 20:14 Pulse 108 H 06/30/24 23:10 Resp 35 H 06/30/24 23:10 BP 129/60 06/30/24 22:47 Pulse Ox 96 06/30/24 23:10 O2 Del Method Room Air 06/30/24 20:14 Course Vital Signs Vital signs: Vital Signs Temperature 98.5 F 06/30/24 20:14 Pulse Rate 106 H 06/30/24 20:14 Respiratory Rate 20 06/30/24 20:14 Blood Pressure 125/64 06/30/24 20:14 Pulse Oximetry 94 L 06/30/24 20:14 Oxygen Delivery Method Room Air 06/30/24 20:14 Temperature 98.5 F 06/30/24 20:14 Pulse Rate 108 H 06/30/24 23:10 Respiratory Rate 35 H 06/30/24 23:10 Blood Pressure 129/60 06/30/24 22:47 Pulse Oximetry 96 06/30/24 23:10 Oxygen Delivery Method Room Air 06/30/24 20:14 Medical Decision Making MDM Narrative Medical decision making narrative: 2199: Chest x-ray, lab studies, respiratory swabs and urine specimen were ordered. Lactic acid is mildly elevated. Patient was treated with IV fluids. Urine specimen and repeat lactic acid are pending at this time. Patient requested to be allowed to eat. She is eating and drinking at this time and is up to the bathroom. She will be reevaluated. Case is turned over to attending physician at this time SHARED APC VISIT, PHYSICIAN ATTESTATION: [id number] I performed a substantive part of the MDM during the patient?s E/M visit. I personally evaluated and examined the patient. I personally made or approved the documented management plan and acknowledge its risk of complications. Medical Records Medical records reviewed: Yes I reviewed the patient's medical records Lab Data Lab results reviewed: Yes I reviewed the patient's lab results Labs: Lab Results 06/30/24 06/30/24 06/30/24 Range/Units 20:20 20:23 21:50 WBC 12.4 H (4.0-11.0) 10^3/uL RBC 5.09 (4.20-5.40) 10^6/uL Hgb 14.8 (12.0-16.0) g/dL Hct 45.6 (36.0-48.0) % MCV 89.6 (81.0-99.0) fL MCH 29.1 (26.7-34.0) pg MCHC 32.5 (29.9-35.2) g/dL RDW 14.8 (11.0-15.0) % Plt Count 294 (150-450) 10^3/uL MPV 9.9 (9.5-13.5) fL Seg Neuts % (Manual) 92.0 H (43.0-75.0) Lymphocytes % (Manual) 1.0 L (20.5-60.0) % Monocytes % (Manual) 7.0 (1.7-12.0) % Eosinophils % (Manual) 0.0 L (0.9-7.0) % Basophils % (Manual) 0.0 L (0.2-2.0) % Neutrophils # (Manual) 11.40 H (1.4-6.5) 10^3/uL Lymphocytes # (Manual) 0.12 L (1.20-3.80) 10^3/uL Monocytes # (Manual) 0.86 H (0.30-0.80) 10^3/uL Eosinophils # (Manual) 0.00 (0.00-0.70) 10^3/uL Basophils # (Manual) 0.00 (0.00-0.10) 10^3/uL PT 10.8 (9.0-11.6) sec INR 1.02 VBG pH 7.437 H (7.330-7.430) VBG pCO2 31.5 L (40.0-52.0) mmHg Sodium 136 (136-145) mmol/L Potassium 3.4 L (3.5-5.1) mmol/L Chloride 103 (98-107) mmol/L Carbon Dioxide 23.9 (21.0-32.0) mmol/L Anion Gap 12.5 BUN 25.0 H (7.0-18.0) mg/dL Creatinine 1.65 H (0.55-1.02) mg/dL Est GFR ( Amer) 37 L (>=60 mL/min/1.73m^2) Est GFR (Non-Af Amer) 31 L (>=60 mL/min/1.73m^2) BUN/Creatinine Ratio 15.2 Glucose 117 H (74-106) mg/dL Lactate 2.2 H* (0.4-2.0) mmol/L Calcium 9.4 (8.5-10.1) mg/dL Total Bilirubin 0.4 (0.2-1.0) mg/dL AST 20 (15-37) U/L ALT 16 (14-59) U/L Alkaline Phosphatase 56 (46-116) U/L Troponin I High Sens 23.7 (4.0-51.3) pg/mL Total Protein 7.2 (6.4-8.2) g/dL Albumin 3.4 (3.4-5.0) g/dL Globulin 3.8 g/dL Albumin/Globulin Ratio 0.9 Urine Color Lt. yellow (YELLOW) Urine Clarity Clear (CLEAR) Urine pH 6.0 (5.0-9.0) Ur Specific Vandiver 1.010 (1.005-1.025) Urine Protein Negative (NEG/TRACE) mg/dL Urine Glucose (UA) Negative (NEGATIVE) mg/dL Urine Ketones Negative (NEGATIVE) mg/dL Urine Occult Blood Negative (NEGATIVE) Urine Nitrite Negative (NEGATIVE) Urine Bilirubin Negative (NEGATIVE) Urine Urobilinogen 1.0 (0.2-1.0) EU/dL Ur Leukocyte Esterase Small A (NEGATIVE) Urine RBC 0-2 (0-2) #/HPF Urine WBC 2-5 A (NONE SEEN) #/HPF Ur Squamous Epith Cells Moderate A (NONE/RARE) #/LPF Urine Crystals None seen (None Seen) #/HPF Urine Bacteria Trace A (NONE SEEN) #/HPF Urine Casts None seen (NONE SEEN) #/LPF Urine Mucus None seen (NONE SEEN) Ur Culture Indicated? Yes-[facility] [place] Influenza Type A Ag Negative Influenza Type B Ag Negative RSV Antigen Not detected (NOT DETECTE) SARS-CoV-2 Ag (CV2AG) Negative (NEGATIVE) Imaging Data Chest x-ray: Attestation: I have reviewed the pertinent imaging results. ECG Data Attestation: I personally reviewed and interpreted this ECG as follows: (Sinus tachycardia at a rate of 105, no acute ST elevation or ectopy. EKG reviewed by attending physician) Discharge Plan Discharge Chief Complaint: Weakness Clinical Impression: Weakness, Sepsis Patient Disposition: Admitted As Inpatient Time of Disposition Decision: 23:14 Condition: Fair Documented by User: Prince Napier MD 06/30/24 23:16 HPI HPI - General Adult General Chief complaint: Weakness Stated complaint: WEAKNESS Time Seen by Provider: 06/30/24 20:15 Related Data Home Medications ?Medication ?Instructions ?Recorded ?Confirmed allopurinol 100 mg tablet 100 mg PO DAILY 05/31/24 06/30/24 apixaban 5 mg tablet (Eliquis) 5 mg PO BID 05/31/24 06/30/24 biotin 2,500 mcg capsule 2.5 mg PO DAILY 05/31/24 06/30/24 fenofibrate nanocrystallized 145 145 mg PO QDAY 05/31/24 06/30/24 mg tablet finerenone 20 mg tablet (Kerendia) 20 mg PO DAILY 05/31/24 06/30/24 fluticasone furoate 200 1 inh inhalation DAILY 05/31/24 06/30/24 mcg-vilanterol 25 mcg/dose inhalation powder (Breo Ellipta) furosemide 20 mg tablet 20 mg PO DAILY 05/31/24 06/30/24 insulin aspart U-100 100 unit/mL 50 unit subcut Q12H 05/31/24 05/31/24 (3 mL) subcutaneous pen (Novolog FlexPen U-100 Insulin aspart) insulin degludec 200 unit/mL (3 70 unit subcut Q12H 05/31/24 05/31/24 mL) subcutaneous pen (Tresiba FlexTouch U-200 insulin) loperamide 2 mg capsule 2 mg PO Q6H PRN loose stool 05/31/24 06/30/24 losartan 100 mg tablet 100 mg PO DAILY 05/31/24 06/30/24 omeprazole 20 mg capsule,delayed 20 mg PO DAILY 05/31/24 06/30/24 release semaglutide 1 mg/dose (4 mg/3 mL) 1 mg subcut .week 05/31/24 06/30/24 subcutaneous pen injector (Ozempic) topiramate 50 mg tablet 50 mg PO Q12H 05/31/24 06/30/24 tramadol 50 mg tablet 50 mg PO Q6H PRN pain 05/31/24 06/30/24 verapamil 240 mg 24 hr 240 mg PO DAILY 05/31/24 06/30/24 capsule,extended release vit C 250 mg-vit E 90 mg-zinc 40 1 tab PO BID 05/31/24 06/30/24 mg-copper 1 [id number] capsule (PreserVision AREDS-2) albuterol sulfate 2.5 mg/3 mL 2.5 mg inhalation Q4H PRN 06/30/24 06/30/24 (0.083 %) solution for nebulization shortness of breath or wheezing Allergies Allergy/AdvReac Type Severity Reaction Status Date / Time doxycycline AdvReac Severe Nausea Verified 05/31/24 17:26 Opioid HPI Opioid Management Most Recent Opioid Data: Last Pain Scale 8 06/02/24 09:22 06/02/24 Last Pain Intensity 2 06/01/24 15:25 06/01/24 Last ORT Total Score 0 05/31/24 20:24 05/31/24 Last ORT Risk Category Low Risk 05/31/24 20:24 05/31/24 PFSH PFSH Medical History (Updated 06/30/24 @ 23:16 by Prince Napier MD) Acute urinary retention ?R33.8 - Other retention of urine (ICD-10) SIRS (systemic inflammatory response syndrome) ?R65.10 - Systemic inflammatory response syndrome (SIRS) of non-infectious origin without acute organ dysfunction (ICD-10) Fever ?R50.9 - Fever, unspecified (ICD-10) Generalized weakness ?R53.1 - Weakness (ICD-10) Obesity ?E66.9 - Obesity, unspecified (ICD-10) Macular degeneration ?H35.30 - Unspecified macular degeneration (ICD-10) Occasional tremors ?R25.1 - Tremor, unspecified (ICD-10) Asthma ?J45.909 - Unspecified asthma, uncomplicated (ICD-10) HTN (hypertension) ?I10 - Essential (primary) hypertension (ICD-10) Blood clot in vein ?I82.90 - Acute embolism and thrombosis of unspecified vein (ICD-10) Kidney disease ?N28.9 - Disorder of kidney and ureter, unspecified (ICD-10) Diabetes ?E11.9 - Type 2 diabetes mellitus without complications (ICD-10) Surgical History (Updated 05/31/24 @ 21:17 by Ana Cristina Westbrook) History of cataract surgery ?Z98.49 - Cataract extraction status, unspecified eye (ICD-10) History of tonsillectomy ?Z90.89 - Acquired absence of other organs (ICD-10) History of knee replacement (Unknown) ?Z96.659 - Presence of unspecified artificial knee joint (ICD-10) Hx of cholecystectomy ?Z90.49 - Acquired absence of other specified parts of digestive tract (ICD-10) Family History (Updated 05/31/24 @ 20:29 by Kayleigh Tello) Father Family history of CHF (congestive heart failure) Family history of cancer Family history of myocardial infarction Mother Family history of diabetes mellitus Family history of hypertension Family history of myocardial infarction Family history of stroke Social History Within the past year, how often did you have a drink containing alcohol: never Score interpretation: A score less than 3 is consistent with normal alcohol consumption. Smoking status: Former smoker Non-prescribed substance use: denies use Previous occupational history: retired Highest level of school completed/degree received: some college, no degree Are you now , , , , never or living with a partner: In a typical week, how many times do you talk on the telephone with family, friends, or neighbors: 3 or more times per week How often do you get together with friends or relatives: once per week How often do you attend holiness or yazidism services: never Do you belong to any clubs or organizations such as holiness groups unions, [employer] or athletic groups, or school groups: no Total score: 2 Score interpretation: A score of greater than or equal to 2 indicates the lowest level of social isolation. Little interest or pleasure in doing things: not at all Feeling down, depressed, or hopeless: not at all Feel stressed/tense/nervous/anxious/difficulty sleeping: not at all Do you think of yourself as: straight/heterosexual Gender Identity: female Exam Constitutional Vital Signs, click to edit/add: Last Vital Signs Temp 98.5 F 06/30/24 20:14 Pulse 108 H 06/30/24 23:10 Resp 35 H 06/30/24 23:10 BP 129/60 06/30/24 22:47 Pulse Ox 96 06/30/24 23:10 O2 Del Method Room Air 06/30/24 20:14 Course Vital Signs Vital signs: Vital Signs Temperature 98.5 F 06/30/24 20:14 Pulse Rate 106 H 06/30/24 20:14 Respiratory Rate 20 06/30/24 20:14 Blood Pressure 125/64 06/30/24 20:14 Pulse Oximetry 94 L 06/30/24 20:14 Oxygen Delivery Method Room Air 06/30/24 20:14 Temperature 98.5 F 06/30/24 20:14 Pulse Rate 108 H 06/30/24 23:10 Respiratory Rate 35 H 06/30/24 23:10 Blood Pressure 129/60 06/30/24 22:47 Pulse Oximetry 96 06/30/24 23:10 Oxygen Delivery Method Room Air 06/30/24 20:14 Medical Decision Making MDM Narrative Medical decision making narrative: 2200: Chest x-ray, lab studies, respiratory swabs and urine specimen were ordered. Lactic acid is mildly elevated. Patient was treated with IV fluids. Urine specimen and repeat lactic acid are pending at this time. Patient requested to be allowed to eat. She is eating and drinking at this time and is up to the bathroom. She will be reevaluated. Case is turned over to attending physician at this time Signout note: She remains mildly tachycardic. She has a white count, left shift. No localizing source of infection on exam. I am concerned that she has the same condition as last time and will have positive blood cultures. I am concerned that she is septic. 2 g Rocephin are given. Case discussed with the hospitalist who agrees admit this patient. Prince Napier DO, KRISTI SHARED APC VISIT, PHYSICIAN ATTESTATION: [id number] I performed a substantive part of the MDM during the patient?s E/M visit. I personally evaluated and examined the patient. I personally made or approved the documented management plan and acknowledge its risk of complications. Lab Data Labs: Lab Results 06/30/24 06/30/24 06/30/24 Range/Units 20:20 20:23 21:50 WBC 12.4 H (4.0-11.0) 10^3/uL RBC 5.09 (4.20-5.40) 10^6/uL Hgb 14.8 (12.0-16.0) g/dL Hct 45.6 (36.0-48.0) % MCV 89.6 (81.0-99.0) fL MCH 29.1 (26.7-34.0) pg MCHC 32.5 (29.9-35.2) g/dL RDW 14.8 (11.0-15.0) % Plt Count 294 (150-450) 10^3/uL MPV 9.9 (9.5-13.5) fL Seg Neuts % (Manual) 92.0 H (43.0-75.0) Lymphocytes % (Manual) 1.0 L (20.5-60.0) % Monocytes % (Manual) 7.0 (1.7-12.0) % Eosinophils % (Manual) 0.0 L (0.9-7.0) % Basophils % (Manual) 0.0 L (0.2-2.0) % Neutrophils # (Manual) 11.40 H (1.4-6.5) 10^3/uL Lymphocytes # (Manual) 0.12 L (1.20-3.80) 10^3/uL Monocytes # (Manual) 0.86 H (0.30-0.80) 10^3/uL Eosinophils # (Manual) 0.00 (0.00-0.70) 10^3/uL Basophils # (Manual) 0.00 (0.00-0.10) 10^3/uL PT 10.8 (9.0-11.6) sec INR 1.02 VBG pH 7.437 H (7.330-7.430) VBG pCO2 31.5 L (40.0-52.0) mmHg Sodium 136 (136-145) mmol/L Potassium 3.4 L (3.5-5.1) mmol/L Chloride 103 (98-107) mmol/L Carbon Dioxide 23.9 (21.0-32.0) mmol/L Anion Gap 12.5 BUN 25.0 H (7.0-18.0) mg/dL Creatinine 1.65 H (0.55-1.02) mg/dL Est GFR ( Amer) 37 L (>=60 mL/min/1.73m^2) Est GFR (Non-Af Amer) 31 L (>=60 mL/min/1.73m^2) BUN/Creatinine Ratio 15.2 Glucose 117 H (74-106) mg/dL Lactate 2.2 H* (0.4-2.0) mmol/L Calcium 9.4 (8.5-10.1) mg/dL Total Bilirubin 0.4 (0.2-1.0) mg/dL AST 20 (15-37) U/L ALT 16 (14-59) U/L Alkaline Phosphatase 56 (46-116) U/L Troponin I High Sens 23.7 (4.0-51.3) pg/mL Total Protein 7.2 (6.4-8.2) g/dL Albumin 3.4 (3.4-5.0) g/dL Globulin 3.8 g/dL Albumin/Globulin Ratio 0.9 Urine Color Lt. yellow (YELLOW) Urine Clarity Clear (CLEAR) Urine pH 6.0 (5.0-9.0) Ur Specific Vandiver 1.010 (1.005-1.025) Urine Protein Negative (NEG/TRACE) mg/dL Urine Glucose (UA) Negative (NEGATIVE) mg/dL Urine Ketones Negative (NEGATIVE) mg/dL Urine Occult Blood Negative (NEGATIVE) Urine Nitrite Negative (NEGATIVE) Urine Bilirubin Negative (NEGATIVE) Urine Urobilinogen 1.0 (0.2-1.0) EU/dL Ur Leukocyte Esterase Small A (NEGATIVE) Urine RBC 0-2 (0-2) #/HPF Urine WBC 2-5 A (NONE SEEN) #/HPF Ur Squamous Epith Cells Moderate A (NONE/RARE) #/LPF Urine Crystals None seen (None Seen) #/HPF Urine Bacteria Trace A (NONE SEEN) #/HPF Urine Casts None seen (NONE SEEN) #/LPF Urine Mucus None seen (NONE SEEN) Ur Culture Indicated? Yes-[facility] [place] Influenza Type A Ag Negative Influenza Type B Ag Negative RSV Antigen Not detected (NOT DETECTE) SARS-CoV-2 Ag (CV2AG) Negative (NEGATIVE) Critical Care Time Critical Care Time Critical Care Time: Yes Total Critical Care Time: 32 Attestation: Critical Care Procedure Note Authorized and Performed by: Prince Napier DO Total critical care time: 32min Due to a high probability of clinically significant, life threatening deterioration, the patient required my highest level of preparedness to intervene emergently and I personally spent this critical care time directly and personally managing the patient. This critical care time included obtaining a history; examining the patient; pulse oximetry; ordering and review of studies; arranging urgent treatment with development of a management plan; evaluation of patient's response to treatment; frequent reassessment; and, discussions with other providers. This critical care time was performed to assess and manage the high probability of imminent, life-threatening deterioration that could result in multi-organ failure. It was exclusive of separately billable procedures and treating other patients and teaching time. Please see MDM section and the rest of the note for further information on patient assessment and treatment. Discharge Plan Discharge Chief Complaint: Weakness Clinical Impression: Weakness, Sepsis Patient Disposition: Admitted As Inpatient Time of Disposition Decision: 23:14 Condition: Fair
[2024-06-30] MEDS: 0.9 % SODIUM CHLORIDE 1,000 ML 999 ML IV (20:45)
[2024-06-30 20:51] LABS: Hematocrit 45.6 % (36.0-48.0); Hemoglobin 14.8 g/dL (12.0-16.0); Mean Corpuscular HGB Conc 32.5 g/dL (29.9-35.2); Mean Corpuscular Hemoglobin 29.1 pg (26.7-34.0); Mean Corpuscular Volume 89.6 fL (81.0-99.0); Mean Platelet Volume 9.9 fL (9.5-13.5); Platelet Count 294 10^3/uL (150-450); Red Blood Count 5.09 10^6/uL (4.20-5.40); Red Cell Distribution Width 14.8 % (11.0-15.0); White Blood Count 12.4 10^3/uL (4.0-11.0)
[2024-06-30 20:52] LABS: PCO2 VBG 31.5 mmHg (40.0-52.0); pH VBG 7.437 (7.330-7.430)
[2024-06-30 21:07] LABS: Influenza Virus A Antigen Negative; Influenza Virus B Antigen Negative; Internal Control Within Normal Limits; Respiratory Syncytial Virus Not Detected (NOT DETECTE); SARS-CoV-2 Ag NEGATIVE (NEGATIVE)
[2024-06-30 21:12] LABS: INR 1.02; Prothrombin Time 10.8 sec (9.0-11.6)
[2024-06-30 21:13] LABS: Troponin I High Sensitivity 23.7 pg/mL (4.0-51.3)
[2024-06-30 21:19] LABS: Alanine Aminotransferase 16 U/L (14-59); Albumin Globulin Ratio 0.9; Albumin Level 3.4 g/dL (3.4-5.0); Alkaline Phosphatase 56 U/L (46-116); Anion Gap 12.5; Aspartate Amino Transferase 20 U/L (15-37); BUN Creatinine Ratio 15.2; Bilirubin Total 0.4 mg/dL (0.2-1.0); Calcium 9.4 mg/dL (8.5-10.1); Carbon Dioxide 23.9 mmol/L (21.0-32.0); Chloride 103 mmol/L (98-107); Estimated GFR (African America 37 (>=60 mL/min/1.73m^2); Estimated GFR (Non-African Ame 31 (>=60 mL/min/1.73m^2); Globulin 3.8 g/dL; Glucose 117 mg/dL (74-106); Potassium 3.4 mmol/L (3.5-5.1); Sodium 136 mmol/L (136-145); Total Protein 7.2 g/dL (6.4-8.2)
[2024-06-30 21:23] LABS: Lactate/Lactic Acid 2.2 mmol/L (0.4-2.0); Lymphocytes Absolute Manual 0.12 10^3/uL (1.20-3.80); Monocytes Absolute Manual 0.86 10^3/uL (0.30-0.80)
[2024-06-30 22:01] LABS: Bilirubin Urine NEGATIVE (NEGATIVE); Blood Urine NEGATIVE (NEGATIVE); Clarity Urine CLEAR (CLEAR); Color Urine LT. YELLOW (YELLOW); Glucose Urine UA NEGATIVE (NEGATIVE); Ketones Urine NEGATIVE (NEGATIVE); Leukocyte Esterase Urine SMALL (NEGATIVE); Nitrite Urine NEGATIVE (NEGATIVE); Protein Urine NEGATIVE (NEG/TRACE)
[2024-06-30 22:21] LABS: Squamous Epithelial Cell Urine MODERATE #/LPF (NONE/RARE)
[2024-06-30 22:23] LABS: Cast Seen? NONE SEEN #/LPF (NONE SEEN); Crystals Seen? None Seen #/HPF (None Seen); Mucus Urine NONE SEEN (NONE SEEN); RBC Urine 0-2 #/HPF (0-2); Urine Culture Indicated YES-FRMC
[2024-06-30 22:25] LABS: Bacteria Urine TRACE #/HPF (NONE SEEN)
[2024-06-30] MEDS: CEFTRIAXONE 2,000 MG in 0.9 % SODIUM CHLORIDE 100 ML 200 MG IV (23:31)
[2024-06-30 23:59] LABS: Lactate/Lactic Acid 1.8 mmol/L (0.4-2.0)
[2024-07-01] VITALS (24 sets, daily range): BP systolic 109–160; BP diastolic 63–78; PULSE 73–102; TEMP 36.7–37.5; O2SAT 91–97; BMI 47.3
--- OUTSIDE RECORDS SUMMARY | 2024-07-01 00:06 | XMS_ITS | CCD ---
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 Name Role Phone RAJESH MERCER Unavailable Unavailable SERGIO, DILAN Unavailable Unavailable RAJESH MERCER Unavailable Unavailable SERGIO, DILAN Unavailable Unavailable None, No PCP Unavailable Unavailable Rdz, Reyna Unavailable Unavailable LAVERNE, DR ANTHONY Admitting Unavailable LAVERNE, DR ANTHONY Attending Unavailable DR RAJESH MERCER Primary Care Unavailable Sergio, Dilan Unavailable Qamar Rowan Unavailable RACHEL Mercer Primary Care Provider [phone] MD Dilan Nguyễn Attending Provider [phone] RACHEL Mercer Primary Care Provider MD Dilan Nguyễn Attending Provider [phone] RACHEL Mercer Primary Care Provider MD Dilan Nguynễ Attending Provider Dari Carlson Unavailable Unavailable Rajesh Mercer II Primary Care Unavail able aRjesh Mercer II Primary Care Unavail able [place], [...] Care Provider MD Dilan Nguyễn Attending Provider [phone] Rajesh Mercer MD Primary Care Provider REYNA RDZ Attending Unavailable RAJESH MERCER Primary Care Unavailable REYNA RDZ Attending Unavailable RAJESH MERCER Primary Care Unavailable RACHEL Mercer Primary Care Provider [phone] MD Dilan Nguyễn Attending Provider Rajesh Mercer MD Primary Care Provider Rajesh Mercer MD Unavailable MAGGI PERALTA Attending Unavailable RAJESH MERCER B Referring Unavailable RAJESH MERCER Primary Care Unavailable MAGGI PERALTA Attending Unavailable RAJESH MERCER Referring Unavailable RAJESH MERCER Primary Care Unavailable GINA BUSTILLO Attending Unavailable RAJESH MERCER Referring Unavailable RAJESH MERCER Primary Care Unavailable Sergio, Dilan Admitting Unavailable Rajesh Mercer Primary Care Unavailable Sergio, Dilan Attending Unavailable Sergio, Dilan Admitting Unavailable Rajesh Mercer Primary Care Unavailable Sergio, Dilan Attending Unavailable Sergio, Dilan Admitting Unavailable MercerRudyel Primary Care Unavailable Sergio, Dilan Attending Unavailable Ruslan Rajesh Primary Care Unavailable Sergio, Dilan Admitting Unavailable Sergio, Dialn Attending Unavailable Aileen Jr, Dez T Attending Unavailable Aileen Jr, Dez T Referring Unavailable Aileen Jr, Dez T Attending Unavailable Aileen Jr, Dez T Referring Unavailable Aileen Jr, Dez T Attending Unavailable Aileen Jr, Dez T Referring Unavailable Rajesh Mercer MD Primary Care Provider Corry Rodriguez RN Unavailable RAJESH MERCER Attending [...] (2 sources) Doxycycline; Translations: [doxycycline] Drug Allergy [facility] Work Phone: (20 sources) Doxycycline; Translations: [doxycycline] Drug Allergy 0 Rash, Unknown [facility] (1 source) Propensity to adverse reactions to drug 0 [facility] (1 source) Propensity to adverse reactions to drug 0 [facility] (1 source) Doxycycline Drug Allergy 7 [facility] Repository (17 sources) cat and dog dander as a youth Propensity to adverse reactions Unknown [employer] Other (18 sources) Ragweed Propensity to adverse reactions Unknown [employer] Other (17 sources) dust as a youth Propensity to adverse reactions Unknown [employer] Other (17 sources) chocolate as a youth Propensity to adverse reactions Unknown [employer] Other (1 source) Propensity to adverse reactions to drug 0 [facility] (1 source) Propensity to adverse reactions to drug 0 [facility] (2 sources) Chocolate; Translations: [chocolate flavor] Drug allergy 3 Unknown [facility] Repository (1 source) House dust mite Drug allergy Unknown [employer] Other (4 sources) house dust allergenic extract; Translations: [house dust] Drug Allergy 4 [facility] (4 sources) Ragweed pollen; Translations: [ragweed pollen] Allergy to substance 4 [facility] (20 sources) Lanolin Drug Allergy 3 Unknown [facility] (1 source) Doxycycline Drug Allergy 4 [facility] Repository (1 source) Unable to Assess Drug allergy (disorder) 05-03-202 1 [facility] Repository Medications Current Medications Medication Drug [...] ( ) take 2 tablets by mo [facility] every six hours as needed Acetaminophen 500 [...] ascorbic acid 226 mg / beta carotene 39199 unt / cuprous oxide 0.8 mg / [...] tablet (2 sources) Macrolide Antimicrobial Start: 020 [id number] Medication azithromycin 250 mg tablet azithromycin 250 [...] Active blood-glucose meter (ONETOUC H VERIO METER) [facility] [place]14 sources) Start: 12-23-2022 blood-glucose meter (ONETOUCH VERIO METER) [facility] Indications: Type 2 diabetes mellitus with hypoglycemia without coma, without long-term current use of insulin ([facility]) Use daily 4 times a day DX:E11.65 1 each 12/23/2022 Active Start: 12-23-2022 blood-glucose meter (ONETOUCH VERIO METER) [facility] Indications: Type 2 diabetes mellitus with hypoglycemia without coma, without long-term current use of insulin ([facility]) Use daily 4 times a day DX:E11.65 [...] under the skin. 06/16/2020 Active Start: 01-17-2020 [id number] Medica tion dulaglutide 1.5 mg/0.5 mL subcutaneous [...] Status: Taking; Provider: Harpal Wells Start: 06-25-2019 [id number] Medica tion fluticasone furoate 200 mcg-vilanterol 25 [...] Daily July 21, 2023 12:00am Start: 11-11-2019 [id number] Medicat ion furosemide 20 mg tablet furosemide [...] hyperglycemia, with long-term current use of insulin ([facility] INJECT UNDER THE SKIN UP TO 100 [...] hyperglycemia, with long-term current use of insulin ([facility]) Uses up to 100 units daily 90 mL 3 07/16/2022 Active Start: 12-19-2019 [id number] Medica tion insulin aspart (U-100) 100 unit/mL [...] hyperglycemia, with long-term current use of insulin ([facility]) INJECT UP TO 150 UNITS UNDER THE SKIN EVERY DAY (DISCARD PEN 56 DAYS AFTER OPENING) 72 mL 3 11/10/2023 Active Start: 01-25-2020 [id number] Medica tion insulin degludec (U-200) 200 unit/mL [...] mL by inhalation four times daily Ipratropium Jamul Active 0.625 ML INHALATION Four times daily July 21, 2023 12:00am Start: 09-04-2022 take 1 dose by inhal ation four times daily as needed ipratropium (Atrovent) 0.02 % nebulizer solution INHALE 1 VIAL IN NEBULIZER 4 TIMES DAILY NEEDED FOR 30 DAYS 09/04/2022 Active take 1 [IU] by inhal ation four times daily as needed Ipratropium Jamul 0.02 % 1 unit dose Inhalation Four [...] 60 capsule 1 01/16/2024 Active Start: 08-04-2021 [id number] Medicat ion loperamide 2 mg capsule loperamide [...] daily. 44 g 2 03/03/2023 04/02/2023 Active Np-Ict-Er-Vit M-Udetrk-Dfpxpdo (Preservision Areds 2 Plus Mv) 200 mcg-15 mcg- 5 mg-1 mg capsule (3 sources) Start: 07-21-2023 take 1 capsule by mouth twice daily Ts-Utr-Na-Vit S-Kqprtm-Scdvjoc (Preservision Areds 2 Plus Mv) 200 mcg-15 [...] hyperglycemia, with long-term current use of insulin ([facility]) Inject 1 mg under the skin every 7 days. 9 mL 3 10/27/2023 Active Ozempic, 1 MG/DOSE, 4 MG/3ML solution pen-injector (20 sources) Start: 10-27-2023 inject 1 mg by subcutaneous injection every week Ozempic, 1 MG/DOSE, 4 MG/3ML solution pen-injector Inject 1 mg under the skin once a week 10/27/2023 Active primidone 250 mg oral tablet (1 source) Anti-epileptic Agent Start: 02-08-2021 00893 Medication omeprazole 20 mg capsule,delayed release omeprazole [...] 180 tablet 3 06/05/2023 Active Start: 01-26-2020 [id number] Medicat ion topiramate 25 mg tablet topiramate [...] tablet 2 06/18/2024 08/02/2024 Active Start: 09-16-2020 621172 Medicat ion tramadol 50 mg tablet tramadol [...] 100 capsule 3 04/21/2023 Active Start: 06-24-2021 705221 Medicat ion verapamil ER 240 mg 24 hr capsule,extended release verapamil ER 240 mg 24 hr capsule,extended release 240 mg 06/24/2021 Active (Outside) verapamil HCl (V ERAPAMIL ORAL) Take 240 mg by mouth. Active take 1 capsule by [facility] every twenty-four hours Verapamil HCl ER 240 [...] hyperglycemia, with long-term current use of insulin ([facility]) inject 1 syringe subcutaneously once a week 4 mL 07/28/2023 08/21/2023 Discontinued Start: 07-28-2023 dulaglutide (T RULICITY) 3 mg/0.5 mL pen injector Indications: Type 2 diabetes mellitus with hyperglycemia, with long-term current use of insulin ([facility]) inject 1 syringe subcutaneously once a week [...] hyperglycemia, with long-term current use of insulin ([facility]) 3mg weekly 2 mL 11 08/19/2022 Active PreserVision AREDS 2 CAPS (5 sources) PreserVision ARE DS 2 CAPS Quantity: 0 Refills: 0 Ordered: 27-Nov-2020 DO Active TRULICITY 3 mg/0.5 mL pen injector (5 sources) Start: 10-16-2023 End: 10-27-2023 TRULICITY 3 mg/0.5 mL pen injector Indications: Type 2 diabetes mellitus with hyperglycemia, with long-term current use of insulin ([facility]) inject 1 syringe subcutaneously once a week [...] hyperglycemia, with long-term current use of insulin ([facility]) inject 1 syringe subcutaneously once a week 4 mL 08/21/2023 10/16/2023 Discontinued Start: 08-21-2023 TRULICITY 3 mg /0.5 mL pen injector Indications: Type 2 diabetes mellitus with hyperglycemia, with long-term current use of insulin ([facility]) inject 1 syringe subcutaneously once a week [...] 07-09-2022 02-27-2023 Episodic 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; Translations: [prison (current) use of insulin] Onset: 10-22-2022 Episodic [...] 1.9 mg/dL 1.8 - 2 .4 mg/dL [facility] CMP (CMP) (FOR REMOTE FH C USE)on 06-18-2024 Albumin [Mass/Vol] 3.3 g/dL Low 3.4 - 5.0 g/dL [facility] ALBUMIN GLOBULIN RATIO 0.9 NO [facility] ALP [Catalytic activity/Vol] 49 U/L 46 - 116 U/L [facility] ALT [Catalytic activity/Vol] 18 U/L 14 - 59 U/L [facility] Anion gap [Moles/Vol] 12.6 mmol/L NO [facility] AST [Catalytic activity/Vol] 18 U/L 15 - 37 U/L [facility] Bilirubin [Mass/Vol] 0.4 mg/dL 0.2 - 1 .0 mg/dL [facility] Calcium [Mass/Vol] 9.1 mg/dL 8.5 - 10. 1 mg/dL [facility] Chloride [Moles/Vol] 102 mmol/L 98 - 10 7 mmol/L [facility] CO2 [Moles/Vol] 26.6 mmol/L 21.0 - 32.0 mmol/L [facility] Creatinine [Mass/Vol] 1.36 mg/dL High 0.55 - 1.02 mg/dL [facility] GFR/1.73 sq M.predicted CKD-EPI (S/P/Bld) [Vol rate/Area] 46 Low >=60 mL/min/1.73 m 2 [facility] Globulin (S) [Mass/Vol] 3.8 g/dL [facility] Glucose [Mass/Vol] 172 mg/dL High 74 - 106 mg/dL [facility] Interpretation and review of laboratory results Abnormal [facility] Potassium [Moles/Vol] 4.2 mmol/L 3.5 - 5.1 mmol/L [facility] Protein [Mass/Vol] 7.1 g/dL 6.4 - 8.2 g/dL [facility] Sodium [Moles/Vol] 137 mmol/L 136 - 145 mmol/L [facility] TBH EGFR-NON AF ECUADOREAN 38 Low >=60 mL/min/1.73 m 2 [facility] Urea nitrogen [Mass/Vol] 29 mg/dL High 7.0 - 18.0 mg/dL [facility] Urea nitrogen/Creatinine [Mass ratio] 21.3 mg/mg [facility] No Panel Informationon 06-18 [facility] Urinalysis macro (dipstick) panel (U)on 06-18-2024 Bilirubin, UA Negative Negative - 4(70) +++ mg/dL [facility] Blood, UA Positive Negative - 50 Evens/mcL [facility] Glucose, UA Negative Negative - 1999(110) ++++ mg/dL [facility] Ketones, UA Negative Negative - 160(16) ++++ mg/dL [facility] Leukocytes, UA Trace Negative - 500+++ Therese/mcL [facility] Nitrite, UA Negative Negative - Positive [facility] pH, UA 7 5 - 9 [facility] Protein, UA Trace Negative - 1999(20) ++++ mg/dL [facility] Spec Grav, UA 1.015 1 - 1.03 [facility] Urobilinogen, UA 0.2 0.2 - 12 mg/dL [facility] Hemogram CBC Without Diffon 04-12-2024 Erythrocyte distribution width (RBC) [Ratio] 15.1 % Normal 11.9-15.3 [facility] Comment on above: Performed By: #### R ENAL, MG, [id number], CBCNO, URIC, PTH #### [address] Hematocrit (Bld) [Volume fraction] 45.9 % Normal 34.0-46.4 [facility] Comment on above: Performed By: #### R ENAL, MG, [id number], CBCNO, URIC, PTH #### [address] Hemoglobin (Bld) [Mass/Vol] 15.3 g/dL Normal 11.8-15.4 [facility] Comment on above: Performed By: #### R ENAL, MG, [id number], CBCNO, URIC, PTH #### [address] MCH (RBC) [Entitic mass] 29.1 pg Normal 24.7-34.3 [facility] Comment on above: Performed By: #### R ENAL, MG, [id number], CBCNO, URIC, PTH #### [address] MCV (RBC) [Entitic vol] 86.9 fL Normal 80-100 [facility] Comment on above: Performed By: #### R ENAL, MG, [id number], CBCNO, URIC, PTH #### [address] Mean Corpuscular HGB Conc 33.4 g/dL Normal 32.0-35.0 [facility] Comment on above: Performed By: #### R ENAL, MG, [id number], CBCNO, URIC, PTH #### [address] Platelet mean volume (Bld) [Entitic vol] 8.6 fL Normal 6.3-10.7 [facility] Comment on above: Result Comment: PERF ORMED BY: [place] [address] PATHOLOGIST ETCH OPERATOR SEMICONDUCTOR WAFERS OLIVERIO ARTHUR M.D. Performed By: #### R ENAL, MG, [id number], CBCNO, URIC, PTH #### [address] Platelets (Bld) [#/Vol] 336 10*3/uL Normal 150-450 [facility] Comment on above: Performed By: #### R ENAL, MG, [id number], CBCNO, URIC, PTH #### [address] RBC (Bld) [#/Vol] 5.28 10*6/uL High 3.60-5.00 [facility] Comment on above: Performed By: #### R ENAL, MG, [id number], CBCNO, URIC, PTH #### [address] WBC (Bld) [#/Vol] 7.6 10*3/uL Normal 3.8-11.6 [facility] Comment on above: Performed By: #### R ENAL, MG, [id number], CBCNO, URIC, PTH #### [address] Laboratory - Chemistry and C hemistry - challengeon 04-12-2024 Albumin [Mass/Vol] 3.8 g/dL [facility] Creatinine (U) [Mass/Vol] 1.58 mg/dL [facility] GFR/1.73 sq M.predicted among non-blacks MDRD (S/P/Bld) [Vol rate/Area] 34.5 mL/min/{1.73_m2} [facility] Magnesiumon 04-12-2024 Magnesium [Mass/Vol] 2.2 mg/dL Normal 1.9-2.7 [facility] Comment on above: Performed By: #### R ENAL, MG, [id number], CBCNO, URIC, PTH #### [address] No Panel Informationon 04-12 [facility] Parathyroid Hormone Intacton 04-12-2024 Parathyroid Hormone Intact 15.0 pg/mL Normal [facility] Comment on above: Result Comment: PERF ORMED BY: [place] [address] PATHOLOGIST ETCH OPERATOR SEMICONDUCTOR WAFERS OLIVERIO ARTHUR M.D. Performed By: #### R ENAL, MG, [id number], CBCNO, URIC, PTH #### [address] Renal Function Panelon 04-12 Albumin [Mass/Vol] 3.8 g/dL Normal 3.5-5.7 [facility] Comment on above: Performed By: #### R ENAL, MG, [id number], CBCNO, URIC, PTH #### [address] Anion gap [Moles/Vol] 13.0 mmol/L Normal 6.0-15.0 [facility] e [facility] Comment on above: Performed By: #### R ENAL, MG, [id number], CBCNO, URIC, PTH #### [address] Calcium [Mass/Vol] 9.5 mg/dL Normal 8.6-10.3 [facility] Comment on above: Performed By: #### R ENAL, MG, [id number], CBCNO, URIC, PTH #### [facility] [address] Chloride [Moles/Vol] 103 mmol/L Normal 98-107 [facility] Comment on above: Performed By: #### R ENAL, MG, [id number], CBCNO, URIC, PTH #### [address] CO2 [Moles/Vol] 24.2 mmol/L Normal 21.0-31.0 [facility] Comment on above: Performed By: #### R ENAL, MG, [id number], CBCNO, URIC, PTH #### [address] Creatinine [Mass/Vol] 1.58 mg/dL High 0.60-1.20 [facility] Comment on above: Performed By: #### R ENAL, MG, [id number], CBCNO, URIC, PTH #### [address] Estimated GFR 34.572 mL/Min Normal [facility] Comment on above: Performed By: #### R ENAL, MG, [id number], CBCNO, URIC, PTH #### [address] Glucose [Mass/Vol] 232 mg/dL High 70-100 [facility] Comment on above: Result Comment: [place] Glucose Reference Range is dependent on time and content of last meal. Glucose of more than 200 mg/dL in a nonstressed, ambulatory subject supports the diagnosis of Diabetes Mellitus. ADA recommended reference range Performed By: #### R ENAL, MG, [id number], CBCNO, URIC, PTH #### [address] Phosphate [Mass/Vol] 4.4 mg/dL Normal 2.5-4.5 [facility] Comment on above: Performed By: #### R ENAL, MG, [id number], CBCNO, URIC, PTH #### [address] Potassium [Moles/Vol] 4.2 mmol/L Normal 3.5-5.1 [facility] Comment on above: Performed By: #### R ENAL, MG, [id number], CBCNO, URIC, PTH #### [address] Sodium [Moles/Vol] 136 mmol/L Normal 136-145 [facility] Comment on above: Performed By: #### R ENAL, MG, [id number], CBCNO, URIC, PTH #### [address] Urea nitrogen [Mass/Vol] 33 mg/dL High 7-25 [facility] Comment on above: Performed By: #### R ENAL, MG, [id number], CBCNO, URIC, PTH #### [address] Uric Acidon 04-12-2024 Urate [Mass/Vol] 5.2 mg/dL Normal 2.3-6.6 [facility] Comment on above: Performed By: #### R ENAL, MG, [id number], CBCNO, URIC, PTH #### [address] Vitamin D 25 Hydroxy Totalon 04-12-2024 Vitamin D 25 Hydroxy Total 47.3 ng/mL Normal 30-100 [facility] Comment on above: Result Comment: [place] MIN D STATUS 25(OH)VITAMIN D RANGE (ng/mL) Deficient <20 Insufficient 20 to <30 Sufficient 30 to 100 Reference: Brittni MF,Mitzy NC, Brandt CONNER, et al. Evaluation,treatment, and prevention of vitamin D deficiency; an Endocrine Society clinical practice guideline. JCEM. 2010; 96(7):1911-30. PERFORMED BY: [place] [address] PATHOLOGIST ETCH OPERATOR SEMICONDUCTOR WAFERS OLIVERIO ARTHUR M.D. Performed By: #### R ENAL, MG, [id number], CBCNO, URIC, PTH #### [facility] [address] POCT Hemoglobin A1con 2023 HbA1c (Bld) [Mass fraction] 7.6 % Abnormal 4 - 7 % [facility] Interpretation and review of laboratory results Abnormal [facility] POCT Hemoglobin A1con 2023 ADA Target < 8 Yes [facility] HbA1c (Bld) [Mass fraction] 7.5 g/dL Abnormal 4 - 7 g/dL [facility] Interpretation and review of laboratory results Abnormal [facility] Albumin [Mass/volume] in Ser um or Plasma by Bromocresol green (BCG) dye binding methoOrdered By: Dilan Nguyễn on 11-10-2023 Albumin BCG dye [Mass/Vol] 4.0 g/dL 3.5-5.7 [facility] Calcium [Mass/volume] in Ser um or PlasmaOrdered By: Dilan Nguyễn on 11-10-2023 Calcium [Mass/Vol] 9.5 mg/dL Normal 8.6-10.3 [facility] Comment on above: Performed By: #### R ENAL, MG, [id number], CBCNO, URIC, PTH #### [facility] [address] Carbon dioxide, total [Moles /volume] in Serum or PlasmaOrdered By: Dilan Nguyễn on 11-10-2023 CO2 [Moles/Vol] 27.1 mmol/L Normal 21.0-31.0 [facility] Comment on above: Performed By: #### R ENAL, MG, [id number], CBCNO, URIC, PTH #### [facility] [address] [place] [address] [place] Chloride [Moles/volume] in S hayder or PlasmaOrdered By: Dilan Nguyễn on 11-10-2023 Chloride [Moles/Vol] 102 mmol/L Normal 98-107 [facility] Comment on above: Performed By: #### R ENAL, MG, [id number], CBCNO, URIC, PTH #### [facility] [address] Creatinine [Mass/volume] in Serum or PlasmaOrdered By: Dilan Nguyễn on 11-10-2023 Creatinine [Mass/Vol] 2.10 mg/dL High 0.60-1.20 [facility] Comment on above: Performed By: #### R ENAL, MG, [id number], CBCNO, URIC, PTH #### [facility] [address] Erythrocyte distribution wid th [Ratio] by Automated countOrdered By: Dilan Nguyễn on 11-10-2023 Erythrocyte distribution width (RBC) [Ratio] 14.8 % Normal 11.9-15.3 [facility] Comment on above: Performed By: #### R ENAL, MG, [id number], CBCNO, URIC, PTH #### [address] Erythrocytes [#/volume] in B lood by Automated countOrdered By: Dilan Nguyễn on 11-10-2023 RBC (Bld) [#/Vol] 5.05 10*6/uL High 3.60-5.00 [facility] Comment on above: Performed By: #### R ENAL, MG, [id number], CBCNO, URIC, PTH #### [address] Glucose [Mass/volume] in Ser um or PlasmaOrdered By: Dilan Nguyễn on 11-10-2023 Glucose [Mass/Vol] 239 mg/dL High 70-100 [facility] Comment on above: ADA recommended refe rence rangeRandom Glucose Reference Range is dependent on time and content of last meal. Glucose of more than 200 mg/dL in a nonstressed, ambulatory subject supports the diagnosis of Diabetes Mellitus. Result Comment: [place] om Glucose Reference Range is dependent on time and content of last meal. Glucose of more than 200 mg/dL in a nonstressed, ambulatory subject supports the diagnosis of Diabetes Mellitus. ADA recommended reference range Performed By: #### R ENAL, MG, [id number], CBCNO, URIC, PTH #### [facility] [address] Hematocrit [Volume Fraction] of Blood by Automated countOrdered By: Dilan Nguyễn on 11-10-2023 Hematocrit (Bld) [Volume fraction] 45.1 % Normal 34.0-46.4 [facility] Comment on above: Performed By: #### R ENAL, MG, [id number], CBCNO, URIC, PTH #### [address] Hemoglobin [Mass/volume] in BloodOrdered By: Dilan Nguyễn on 11-10-2023 Hemoglobin (Bld) [Mass/Vol] 15.0 g/dL Normal 11.8-15.4 [facility] Comment on above: Performed By: #### R ENAL, MG, [id number], CBCNO, URIC, PTH #### [address] Hemogram CBC Without Diffon 11-10-2023 Mean Corpuscular HGB Conc 33.2 g/dL Normal 32.0-35.0 [facility] Comment on above: Performed By: #### R ENAL, MG, [id number], CBCNO, URIC, PTH #### [address] WBC (Bld) [#/Vol] 9.1 10*3/uL Normal 3.8-11.6 [facility] Comment on above: Performed By: #### R ENAL, MG, [id number], CBCNO, URIC, PTH #### [address] Leukocytes [#/volume] correc cristine for nucleated erythrocytes in Blood by Automated counOrdered By: Dilan Nguyễn on 11-10-2023 WBC corrected for nucl RBC Auto (Bld) [#/Vol] 9.1 10*3/uL 3.8-11.6 [facility] MCH [Entitic mass] by Automa cristine countOrdered By: Dilan Nguyễn on 11-10-2023 MCH (RBC) [Entitic mass] 29.7 pg Normal 24.7-34.3 [facility] Comment on above: Performed By: #### R ENAL, MG, [id number], CBCNO, URIC, PTH #### [address] MCHC Auto (RBC) [Mass/Vol]Or dered By: Dilan Nguyễn on 11-10-2023 MCHC (RBC) [Mass/Vol] 33.2 g/dL 32.0-35.0 [facility] MCV [Entitic volume] by Auto mated countOrdered By: Dilan Nguyễn on 11-10-2023 MCV (RBC) [Entitic vol] 89.4 fL Normal 80-100 [facility] Comment on above: Performed By: #### R ENAL, MG, [id number], CBCNO, URIC, PTH #### [address] Magnesium [Mass/volume] in S hayder or PlasmaOrdered By: Dilan Nguyễn on 11-10-2023 Magnesium [Mass/Vol] 2.2 mg/dL Normal 1.9-2.7 [facility] Comment on above: Performed By: #### R ENAL, MG, [id number], CBCNO, URIC, PTH #### [address] No Panel InformationOrdered By: Dilan Nguyễn on 11-10-2023 Estimated GFR (CKD-EPI) 24.573 mL/Min [facility] Creatinine Clearance (Chem N/A [facility] Phosphate [Mass/volume] in S hayder or PlasmaOrdered By: Dilan Nguyễn on 11-10-2023 Phosphate [Mass/Vol] 4.9 mg/dL High 2.5-4.5 [facility] Comment on above: Performed By: #### R ENAL, MG, [id number], CBCNO, URIC, PTH #### [address] Platelet mean volume [Entiti c volume] in Blood by Automated countOrdered By: Dilan Nguyễn on 11-10-2023 Platelet mean volume (Bld) [Entitic vol] 8.5 fL Normal 6.3-10.7 [facility] Comment on above: Result Comment: PERF ORMED BY: [place] [address] PATHOLOGIST ETCH OPERATOR [employer] JACQUELINE ZAVALA M.D. Performed By: #### R ENAL, MG, [id number], CBCNO, URIC, PTH #### [address] Platelets [#/volume] in Bloo d by Automated countOrdered By: Dilan Nguyễn on 11-10-2023 Platelets (Bld) [#/Vol] 350 10*3/uL Normal 150-450 [facility] Comment on above: Performed By: #### R ENAL, MG, [id number], CBCNO, URIC, PTH #### [address] Potassium [Moles/volume] in Serum or PlasmaOrdered By: Dilan Nguyễn on 11-10-2023 Potassium [Moles/Vol] 4.0 mmol/L Normal 3.5-5.1 [facility] Comment on above: Performed By: #### R ENAL, MG, [id number], CBCNO, URIC, PTH #### [address] Renal Function Panelon 11-09 Albumin [Mass/Vol] 4.0 g/dL Normal 3.5-5.7 [facility] Comment on above: Performed By: #### R ENAL, MG, [id number], CBCNO, URIC, PTH #### [place] [address] [place] GFR/1.73 sq M.predicted MDRD (S/P/Bld) [Vol rate/Area] 24.573 mL/min/{1.73_m2} Normal [facility] Comment on above: Performed By: #### R ENAL, MG, [id number], CBCNO, URIC, PTH #### [facility] [address] Serum or plasma anion gap de terminationOrdered By: Dilan Sergio on 11-10-2023 Anion gap [Moles/Vol] 11.9 mmol/L Normal 6.0-15.0 [facility] Comment on above: Performed By: #### R ENAL, MG, [id number], CBCNO, URIC, PTH #### [facility] [address] Sodium [Moles/volume] in Ser um or PlasmaOrdered By: Dilan Sergio on 11-10-2023 Sodium [Moles/Vol] 137 mmol/L Normal 136-145 [facility] Comment on above: Performed By: #### R ENAL, MG, [id number], CBCNO, URIC, PTH #### [facility] [address] [place] [address] Urate [Mass/volume] in Serum or PlasmaOrdered By: Dilan Sergio on 11-10-2023 Urate [Mass/Vol] 4.9 mg/dL Normal 2.3-6.6 [facility] Comment on above: Performed By: #### R ENAL, MG, [id number], CBCNO, URIC, PTH #### [facility] [address] [place] [address] Urea nitrogen [Mass/volume] in Serum or PlasmaOrdered By: Dilan Sergio on 11-10-2023 Urea nitrogen [Mass/Vol] 46 mg/dL High 7-25 [facility] Comment on above: Performed By: #### R ENAL, MG, [id number], CBCNO, URIC, PTH #### [facility] [address] [place] [address] Vitamin D 25 Hydroxy Totalon 11-10-2023 Vitamin D 25 Hydroxy Total 50.4 ng/mL Normal 30-100 [facility] Comment on above: Result Comment: YAZIMN MIN D STATUS 25(OH)VITAMIN D RANGE (ng/mL) Deficient <20 Insufficient 20 to <30 Sufficient 30 to 100 Reference: Mitzy Gutiérrez, Brandt CONNER, et al. Evaluation,treatment, and prevention of vitamin D deficiency; an Endocrine Society clinical practice guideline. JCEM. 2010; 96(7):1911-. PERFORMED BY: [facility] [address] [place] [address] PATHOLOGIST ETCH OPERATOR [employer] JACQUELINE ZAVALA M.D. Performed By: #### R ENAL, MG, [id number], CBCNO, URIC, PTH #### [facility] [address] [place] [id number] [facility] Vitamin D+Metabolites [Mass/ volume] in Serum or PlasmaOrdered By: Dilan Nguyễn on 11-10-2023 Vitamin D+Metabolites [Mass/Vol] 50.4 ng/mL 30-100 [facility] Comment on above: VITAMIN D STATUS 25( OH)VITAMIN D RANGE (ng/mL) Deficient <20 Insufficient 20 to <30Sufficient 30 to 100Reference: Mitzy Gutiérrez, Brandt CONNER, et al. Evaluation,treatment, and prevention of vitamin D deficiency; an Endocrine Society clinical practice guideline. JCEM. 2010; 96(7):1911-30. POCT Hemoglobin A1con 2023 ADA Target < 8 Yes [facility] HbA1c (Bld) [Mass fraction] 7.7 g/dL Abnormal 4 - 7 g/dL [facility] Interpretation and review of laboratory results Abnormal [facility] Microalbumin/Creatinine rati o panel (U)on 08-05-2023 Albumin DL <= 20 mg/L (U) [Mass/Vol] 4 mg/dL [facility] Albumin/Creatinine DL <= 1.0 mg/L (U) [Ratio] 1.2 [facility] Creatinine (U) [Mass/Vol] 65 [facility] Albumin [Mass/volume] in Ser um or Plasma by Bromocresol green (BCG) dye binding methoOrdered By: Dilan Nguyễn on 07-21-2023 Albumin BCG dye [Mass/Vol] 4.3 g/dL 3.5-5.7 [facility] Calcium [Mass/volume] in Ser um or PlasmaOrdered By: Dilan Nguyễn on 07-21-2023 Calcium [Mass/Vol] 9.8 mg/dL Normal 8.6-10.3 [facility] Comment on above: Performed By: #### R ENAL, MG, [id number], CBCNO, URIC, PTH #### [facility] [address] Carbon dioxide, total [Moles /volume] in Serum or PlasmaOrdered By: Dilan Nguyễn on 07-21-2023 CO2 [Moles/Vol] 29.2 mmol/L Normal 21.0-31.0 [facility] Comment on above: Performed By: #### R ENAL, MG, [id number], CBCNO, URIC, PTH #### [facility] [address] Chloride [Moles/volume] in S hayder or PlasmaOrdered By: Dilan Nguyễn on 07-21-2023 Chloride [Moles/Vol] 103 mmol/L Normal 98-107 [facility] Comment on above: Performed By: #### R ENAL, MG, [id number], CBCNO, URIC, PTH #### [facility] [address] Creatinine [Mass/volume] in Serum or PlasmaOrdered By: Dilan Nguyễn on 07-21-2023 Creatinine [Mass/Vol] 1.86 mg/dL High 0.60-1.20 [facility] Comment on above: Performed By: #### R ENAL, MG, [id number], CBCNO, URIC, PTH #### [facility] [address] [place] [address] [place] Glucose [Mass/volume] in Ser um or PlasmaOrdered By: Dilan Nguyễn on 07-21-2023 Glucose [Mass/Vol] 208 mg/dL High 70-100 [facility] Comment on above: ADA recommended refe rence rangeRandom Glucose Reference Range is dependent on time and content of last meal. Glucose of more than 200 mg/dL in a nonstressed, ambulatory subject supports the diagnosis of Diabetes Mellitus. Result Comment: Formerly named [facility] Glucose Reference Range is dependent on time and content of last meal. Glucose of more than 200 mg/dL in a nonstressed, ambulatory subject supports the diagnosis of Diabetes Mellitus. ADA recommended reference range Performed By: #### R ENAL, MG, [id number], CBCNO, URIC, PTH #### [facility] [address] No Panel InformationOrdered By: Dilan Nguyễn on 07-21-2023 Estimated GFR (CKD-EPI) 28.425 mL/Min [facility] Creatinine Clearance (Chem N/A [facility] Phosphate [Mass/volume] in S hayder or PlasmaOrdered By: Dilan Nguyễn on 07-21-2023 Phosphate [Mass/Vol] 4.9 mg/dL High 2.5-4.5 [facility] Comment on above: Performed By: #### R ENAL, MG, [id number], CBCNO, URIC, PTH #### [address] Potassium [Moles/volume] in Serum or PlasmaOrdered By: Dilan Nguyễn on 07-21-2023 Potassium [Moles/Vol] 4.5 mmol/L Normal 3.5-5.1 [facility] Comment on above: Performed By: #### R ENAL, MG, [id number], CBCNO, URIC, PTH #### [address] Renal Function Panelon 07-20 Albumin [Mass/Vol] 4.3 g/dL Normal 3.5-5.7 [facility] Comment on above: Result Comment: PERF ORMED BY: [place] [address] PATHOLOGIST ETCH OPERATOR [employer] JACQUELINE ZAVALA M.D. Performed By: #### R ENAL, MG, [id number], CBCNO, URIC, PTH #### [address] GFR/1.73 sq M.predicted MDRD (S/P/Bld) [Vol rate/Area] 28.425 mL/min/{1.73_m2} Normal [facility] Comment on above: Performed By: #### R ENAL, MG, [id number], CBCNO, URIC, PTH #### [facility] [address] Serum or plasma anion gap de terminationOrdered By: Dilan Nguyễn on 07-21-2023 Anion gap [Moles/Vol] 11.3 mmol/L Normal 6.0-15.0 [facility] Comment on above: Performed By: #### R ENAL, MG, [id number], CBCNO, URIC, PTH #### [facility] [address] Sodium [Moles/volume] in Ser um or PlasmaOrdered By: Dilan Nguyễn on 07-21-2023 Sodium [Moles/Vol] 139 mmol/L Normal 136-145 [facility] Comment on above: Performed By: #### R ENAL, MG, [id number], CBCNO, URIC, PTH #### [facility] [address] [place] [address] Urea nitrogen [Mass/volume] in Serum or PlasmaOrdered By: Dilan Nguyễn on 07-21-2023 Urea nitrogen [Mass/Vol] 34 mg/dL High 7-25 [facility] Comment on above: Performed By: #### R ENAL, MG, [id number], CBCNO, URIC, PTH #### [facility] [address] [place] [address] [place] Albumin [Mass/volume] in Ser um or Plasma by Bromocresol green (BCG) dye binding methoOrdered By: Dilan Nguyễn on 07-18-2023 Albumin BCG dye [Mass/Vol] 4.1 g/dL 3.5-5.7 [facility] Automated erythrocytes count in urine sediment (number/area)Ordered By: Dilan Nguyễn on 07-18-2023 RBC Auto (Urine sed) [#/Area] 10-19 [HPF] 0-4 [facility] Automated leukocytes count i n urine sediment (number/area)Ordered By: Dilan Nguyễn on 07-18-2023 WBC Auto (Urine sed) [#/Area] 10-19 [HPF] 0-4 [facility] Automated urine color determ inationOrdered By: Dilan Nguyễn on 07-18-2023 Color (U) Yellow Normal Yellow [facility] Comment on above: Order Comment: Reaso n for Exam Hypertensive chronic kidney disease with stage 1 through sta Name Collection Type:: Clean-Voided Midstream Performed By: #### R ENAL, MG, [id number], CBCNO, URIC, PTH #### [facility] [address] Bilirubin Test strip Ql (U)O rdered By: Dilan Nguyễn on 07-18-2023 Bilirubin Ql (U) Negative Negative [facility] Calcium [Mass/volume] in Ser um or PlasmaOrdered By: Dilan Nguyễn on 07-18-2023 Calcium [Mass/Vol] 9.2 mg/dL Normal 8.6-10.3 [facility] Comment on above: Order Comment: Reaso n for Exam Hypertensive chronic kidney disease with stage 1 through sta Performed By: #### M G, [id number], URIC, RENAL #### [facility] [address] [place] [address] [place] Carbon dioxide, total [Moles /volume] in Serum or PlasmaOrdered By: Dilan Nguyễn on 07-18-2023 CO2 [Moles/Vol] 27.0 mmol/L Normal 21.0-31.0 [facility] Comment on above: Order Comment: Reaso n for Exam Hypertensive chronic kidney disease with stage 1 through sta Performed By: #### M G, [id number], URIC, RENAL #### [facility] [address] [place] [id number] [place] Chloride [Moles/volume] in S hayder or PlasmaOrdered By: Dilan Nguyễn on 07-18-2023 Chloride [Moles/Vol] 101 mmol/L Normal 98-107 [facility] Comment on above: Order Comment: Reaso n for Exam Hypertensive chronic kidney disease with stage 1 through sta Performed By: #### M G, [id number], URIC, RENAL #### [facility] [address] [place] [id number] [facility] Creatinine [Mass/volume] in Serum or PlasmaOrdered By: Dilan Nguyễn on 07-18-2023 Creatinine [Mass/Vol] 2.96 mg/dL High 0.60-1.20 [facility] Comment on above: Order Comment: Reaso n for Exam Hypertensive chronic kidney disease with stage 1 through sta Performed By: #### M G, [id number], URIC, RENAL #### [facility] [address] [place] [id number] [facility] Creatinine [Mass/volume] in UrineOrdered By: Dilan Nguyễn on 07-18-2023 Creatinine (U) [Mass/Vol] 65.0 mg/dL 11.0-20.0 [facility] Dipstick and Microscopicon 0 07-18-2023 Appearance (U) Clear Normal Clear [facility] Comment on above: Order Comment: Reaso n for Exam Hypertensive chronic kidney disease with stage 1 through sta Name Collection Type:: Clean-Voided Midstream Performed By: #### R ENAL, MG, [id number], CBCNO, URIC, PTH #### [facility] [address] [place] [address] Bacteria,Urine None Seen Normal None Seen [facility] Comment on above: Order Comment: Reaso n for Exam Hypertensive chronic kidney disease with stage 1 through sta Name Collection Type:: Clean-Voided Midstream Performed By: #### R ENAL, MG, [id number], CBCNO, URIC, PTH #### [facility] [address] [place] [id number] [facility] Bilirubin,Urine Negative Normal Negative [facility] Comment on above: Order Comment: Reaso n for Exam Hypertensive chronic kidney disease with stage 1 through sta Name Collection Type:: Clean-Voided Midstream Performed By: #### R ENAL, MG, [id number], CBCNO, URIC, PTH #### [facility] [address] [place] [id number] [place] Glucose Ql (U) 500 mg/dL High Normal [facility] Comment on above: Order Comment: Reaso n for Exam Hypertensive chronic kidney disease with stage 1 through sta Name Collection Type:: Clean-Voided Midstream Performed By: #### R ENAL, MG, [id number], CBCNO, URIC, PTH #### [facility] [address] Hyaline Casts,Urine 0-8 Normal 0-8 [facility] Comment on above: Order Comment: Reaso n for Exam Hypertensive chronic kidney disease with stage 1 through sta Name Collection Type:: Clean-Voided Midstream Result Comment: PERF ORMED BY: [place] [address] PATHOLOGIST ETCH OPERATOR [employer] JACQUELINE ZAVALA M.D. Performed By: #### R ENAL, MG, [id number], CBCNO, URIC, PTH #### [address] Ketones Ql (U) Negative Normal Negative [facility] Comment on above: Order Comment: Reaso n for Exam Hypertensive chronic kidney disease with stage 1 through sta Name Collection Type:: Clean-Voided Midstream Performed By: #### R ENAL, MG, [id number], CBCNO, URIC, PTH #### [address] Leukocyte esterase Test strip Ql (U) 3+ High Negative [facility] Comment on above: Order Comment: Reaso n for Exam Hypertensive chronic kidney disease with stage 1 through sta Name Collection Type:: Clean-Voided Midstream Performed By: #### R ENAL, MG, [id number], CBCNO, URIC, PTH #### [facility] [address] [place] [address] [place] Nitrite,Urine Negative Normal Negative [facility] Comment on above: Order Comment: Reaso n for Exam Hypertensive chronic kidney disease with stage 1 through sta Name Collection Type:: Clean-Voided Midstream Performed By: #### R ENAL, MG, [id number], CBCNO, URIC, PTH #### [address] Occult Blood,Urine Trace High Negative [facility] Comment on above: Order Comment: Reaso n for Exam Hypertensive chronic kidney disease with stage 1 through sta Name Collection Type:: Clean-Voided Midstream Performed By: #### R ENAL, MG, [id number], CBCNO, URIC, PTH #### [facility] [address] Protein,Urine Negative Normal Negative [facility] Comment on above: Order Comment: Reaso n for Exam Hypertensive chronic kidney disease with stage 1 through sta Name Collection Type:: Clean-Voided Midstream Performed By: #### R ENAL, MG, [id number], CBCNO, URIC, PTH #### [facility] [address] [place] [address] RBC,Urine 10-19 High 0-4 [facility] Comment on above: Order Comment: Reaso n for Exam Hypertensive chronic kidney disease with stage 1 through sta Name Collection Type:: Clean-Voided Midstream Performed By: #### R ENAL, MG, [id number], CBCNO, URIC, PTH #### [address] Specificy [place],Urine 1.015 Normal 1.001-1.030 [facility] Comment on above: Order Comment: Reaso n for Exam Hypertensive chronic kidney disease with stage 1 through sta Name Collection Type:: Clean-Voided Midstream Performed By: #### R ENAL, MG, [id number], CBCNO, URIC, PTH #### [address] Squamous Epithelial Cell,Urine 3-4 High 0-2 [facility] Comment on above: Order Comment: Reaso n for Exam Hypertensive chronic kidney disease with stage 1 through sta Name Collection Type:: Clean-Voided Midstream Performed By: #### R ENAL, MG, [id number], CBCNO, URIC, PTH #### [address] Urobilinogen,Urine Normal Normal Normal [facility] Comment on above: Order Comment: Reaso n for Exam Hypertensive chronic kidney disease with stage 1 through sta Name Collection Type:: Clean-Voided Midstream Performed By: #### R ENAL, MG, [id number], CBCNO, URIC, PTH #### [facility] [address] WBC,Urine 10-19 High 0-4 [facility] Comment on above: Order Comment: Reaso n for Exam Hypertensive chronic kidney disease with stage 1 through sta Name Collection Type:: Clean-Voided Midstream Performed By: #### R ENAL, MG, [id number], CBCNO, URIC, PTH #### [facility] [address] Erythrocyte distribution wid th [Ratio] by Automated countOrdered By: Dilan Nguyễn on 07-18-2023 Erythrocyte distribution width (RBC) [Ratio] 15.2 % Normal 11.9-15.3 [facility] Comment on above: Order Comment: Evitao n for Exam Hypertensive chronic kidney disease with stage 1 through sta Performed By: #### R ENAL, MG, [id number], CBCNO, URIC, PTH #### [facility] [address] [place] [address] Erythrocytes [#/volume] in B lood by Automated countOrdered By: Dilan Nguyễn on 07-18-2023 RBC (Bld) [#/Vol] 5.25 10*6/uL High 3.60-5.00 [facility] Comment on above: Order Comment: Reaso n for Exam Hypertensive chronic kidney disease with stage 1 through sta Performed By: #### R ENAL, MG, [id number], CBCNO, URIC, PTH #### [facility] [address] [place] [address] Glucose [Mass/volume] in Ser um or PlasmaOrdered By: Dilan Nguyễn on 07-18-2023 Glucose [Mass/Vol] 101 mg/dL High 70-100 [facility] Comment on above: ADA recommended refe rence rangeRandom Glucose Reference Range is dependent on time and content of last meal. Glucose of more than 200 mg/dL in a nonstressed, ambulatory subject supports the diagnosis of Diabetes Mellitus. Order Comment: Evitao n for Exam Hypertensive chronic kidney disease with stage 1 through sta Result Comment: [place] Glucose Reference Range is dependent on time and content of last meal. Glucose of more than 200 mg/dL in a nonstressed, ambulatory subject supports the diagnosis of Diabetes Mellitus. ADA recommended reference range Performed By: #### M G, [id number], URIC, RENAL #### [facility] [address] [place] [id number] [facility] Hematocrit [Volume Fraction] of Blood by Automated countOrdered By: Dilan Nguyễn on 07-18-2023 Hematocrit (Bld) [Volume fraction] 46.5 % High 34.0-46.4 [facility] Comment on above: Order Comment: Reaso n for Exam Hypertensive chronic kidney disease with stage 1 through sta Performed By: #### R ENAL, MG, [id number], CBCNO, URIC, PTH #### [address] Hemoglobin [Mass/volume] in BloodOrdered By: Dilan Nguyễn on 07-18-2023 Hemoglobin (Bld) [Mass/Vol] 15.1 g/dL Normal 11.8-15.4 [facility] Comment on above: Order Comment: Reaso n for Exam Hypertensive chronic kidney disease with stage 1 through sta Performed By: #### R ENAL, MG, [id number], CBCNO, URIC, PTH #### [address] Hemogram CBC Without Diffon 07-18-2023 Mean Corpuscular HGB Conc 32.5 g/dL Normal 32.0-35.0 [facility] Comment on above: Order Comment: Reaso n for Exam Hypertensive chronic kidney disease with stage 1 through sta Performed By: #### R ENAL, MG, [id number], CBCNO, URIC, PTH #### [facility] [address] [place] [address] [place] WBC (Bld) [#/Vol] 9.9 10*3/uL Normal 3.8-11.6 [facility] Comment on above: Order Comment: Reaso n for Exam Hypertensive chronic kidney disease with stage 1 through sta Performed By: #### R ENAL, MG, [id number], CBCNO, URIC, PTH #### [facility] [address] Ketones Auto test strip (U) [Mass/Vol]Ordered By: Dilan Nguyễn on 07-18-2023 Ketones (U) [Mass/Vol] Negative Negative [facility] - UrinalysisOrder ed By: iDlan Nguyễn on 07-18-2023 Hyaline casts LM Ql (Urine sed) 0-8 [LPF] 0-8 [facility] Leukocytes [#/volume] correc cristine for nucleated erythrocytes in Blood by Automated counOrdered By: Dilan Nguyễn on 07-18-2023 WBC corrected for nucl RBC Auto (Bld) [#/Vol] 9.9 10*3/uL 3.8-11.6 [facility] MCH [Entitic mass] by Automa cristine countOrdered By: Dilan Nguyễn on 07-18-2023 MCH (RBC) [Entitic mass] 28.8 pg Normal 24.7-34.3 [facility] Comment on above: Order Comment: Reaso n for Exam Hypertensive chronic kidney disease with stage 1 through sta Performed By: #### R ENAL, MG, [id number], CBCNO, URIC, PTH #### [facility] [address] [place] [address] MCHC Auto (RBC) [Mass/Vol]Or dered By: Dilan Nguyễn on 07-18-2023 MCHC (RBC) [Mass/Vol] 32.5 g/dL 32.0-35.0 [facility] MCV [Entitic volume] by Auto mated countOrdered By: Dilan Nguyễn on 07-18-2023 MCV (RBC) [Entitic vol] 88.7 fL Normal 80-100 [facility] Comment on above: Order Comment: Reaso n for Exam Hypertensive chronic kidney disease with stage 1 through sta Performed By: #### R ENAL, MG, [id number], CBCNO, URIC, PTH #### [facility] [address] Magnesium [Mass/volume] in S hayder or PlasmaOrdered By: Dilan Nguyễn on 07-18-2023 Magnesium [Mass/Vol] 2.3 mg/dL Normal 1.9-2.7 [facility] Comment on above: Order Comment: Reaso n for Exam Hypertensive chronic kidney disease with stage 1 through sta Performed By: #### M G, [id number], URIC, RENAL #### [facility] [address] Nitrite Test strip Ql (U)Ord ered By: Dilan Nguyễn on 07-18-2023 Nitrite Ql (U) Negative Negative [facility] No Panel InformationOrdered By: Dilan Nguyễn on 07-18-2023 Estimated GFR (CKD-EPI) 16.276 mL/Min [facility] Creatinine Clearance (Chem N/A [facility] Parathyrin.intact [Mass/volu me] in Serum or PlasmaOrdered By: Dilan Nguyễn on 07-18-2023 Parathyrin.intact [Mass/Vol] 47.1 pg/mL [facility] Parathyroid Hormone Intacton 07-18-2023 Parathyroid Hormone Intact 47.1 pg/mL Normal [facility] Comment on above: Order Comment: Reaso n for Exam Hypertensive chronic kidney disease with stage 1 through sta Result Comment: PERF ORMED BY: [place] [address] PATHOLOGIST ETCH OPERATOR [employer]AFERS JACQUELINE ZAVALA M.D. Performed By: #### R ENAL, MG, [id number], CBCNO, URIC, PTH #### [facility] [address] [place] [address] [place] Phosphate [Mass/volume] in S hayder or PlasmaOrdered By: Dilan Nguyễn on 07-18-2023 Phosphate [Mass/Vol] 5.2 mg/dL High 2.5-4.5 [facility] Comment on above: Order Comment: Reaso n for Exam Hypertensive chronic kidney disease with stage 1 through sta Performed By: #### M G, [id number], URIC, RENAL #### [facility] [address] [place] [id number] [place] Platelet mean volume [Entiti c volume] in Blood by Automated countOrdered By: Dilan Nguyễn on 07-18-2023 Platelet mean volume (Bld) [Entitic vol] 7.9 fL Normal 6.3-10.7 [facility] Comment on above: Order Comment: Reaso n for Exam Hypertensive chronic kidney disease with stage 1 through sta Result Comment: PERF ORMED BY: [place] [address] PATHOLOGIST ETCH OPERATOR [employer] JACQUELINE ZAVALA M.D. Performed By: #### R ENAL, MG, [id number], CBCNO, URIC, PTH #### [facility] [address] [place] [address] Platelets [#/volume] in Bloo d by Automated countOrdered By: Dilan Nguyễn on 07-18-2023 Platelets (Bld) [#/Vol] 361 10*3/uL Normal 150-450 [facility] Comment on above: Order Comment: Reaso n for Exam Hypertensive chronic kidney disease with stage 1 through sta Performed By: #### R ENAL, MG, [id number], CBCNO, URIC, PTH #### [facility] [address] [place] [address] Potassium [Moles/volume] in Serum or PlasmaOrdered By: Dilan Nguyễn on 07-18-2023 Potassium [Moles/Vol] 4.6 mmol/L Normal 3.5-5.1 [facility] Comment on above: Order Comment: Reaso n for Exam Hypertensive chronic kidney disease with stage 1 through sta Performed By: #### M G, [id number], URIC, RENAL #### [facility] [address] [place] [address] Protein Auto test strip (U) [Mass/Vol]Ordered By: Dilan Nguyễn on 07-18-2023 Protein (U) [Mass/Vol] Negative Negative [facility] Protein Creat Ratio Ur Rando mon 07-18-2023 Creatinine, Urine (Random) 65.0 mg/dL High 11.0-20.0 [facility] Comment on above: Order Comment: Reaso n for Exam Hypertensive chronic kidney disease with stage 1 through sta Performed By: #### R ENAL, MG, [id number], CBCNO, URIC, PTH #### [address] Protein, Urine (Random) < 4 Normal 0-9 [facility] Comment on above: Order Comment: Reaso n for Exam Hypertensive chronic kidney disease with stage 1 through sta Performed By: #### R ENAL, MG, [id number], CBCNO, URIC, PTH #### [address] Urine Protein/Creatinine Ratio Not performed Normal 0-200 [facility] Comment on above: Order Comment: Reaso n for Exam Hypertensive chronic kidney disease with stage 1 through sta Result Comment: PERF ORMED BY: [place] [address] PATHOLOGIST ETCH OPERATOR [employer] JACQUELINE ZVAALA M.D. Performed By: #### R ENAL, MG, [id number], CBCNO, URIC, PTH #### [address] Protein [Mass/volume] in Uri neOrdered By: Dilan Nguyễn on 07-18-2023 Protein (U) [Mass/Vol] mg/dL 0-9 [facility] Renal Function Panelon 07-17 Albumin [Mass/Vol] 4.1 g/dL Normal 3.5-5.7 [facility] Comment on above: Order Comment: Reaso n for Exam Hypertensive chronic kidney disease with stage 1 through sta Performed By: #### M G, [id number], URIC, RENAL #### [place] [address] [place] GFR/1.73 sq M.predicted MDRD (S/P/Bld) [Vol rate/Area] 16.276 mL/min/{1.73_m2} Normal [facility] Comment on above: Order Comment: Reaso n for Exam Hypertensive chronic kidney disease with stage 1 through sta Performed By: #### M G, [id number], URIC, RENAL #### [address] Serum or plasma anion gap de terminationOrdered By: Dilan Nguyễn on 07-18-2023 Anion gap [Moles/Vol] 12.6 mmol/L Normal 6.0-15.0 [facility] Comment on above: Order Comment: Reaso n for Exam Hypertensive chronic kidney disease with stage 1 through sta Performed By: #### M G, [id number], URIC, RENAL #### [facility] [address] [place] [address] [place] Sodium [Moles/volume] in Ser um or PlasmaOrdered By: Dilan Nguyễn on 07-18-2023 Sodium [Moles/Vol] 136 mmol/L Normal 136-145 [facility] Comment on above: Order Comment: Reaso n for Exam Hypertensive chronic kidney disease with stage 1 through sta Performed By: #### M G, [id number], URIC, RENAL #### [facility] [address] [place] [id number] [facility] Specific gravity Auto test s trip (U) [Rel density]Ordered By: Dilan Nguyễn on 07-18-2023 Specific gravity (U) [Rel density] 1.015 1.001-1.030 [facility] Squamous epithelial cells de tection in urine sediment by light microscopyOrdered By: Dilan Nguyễn on 07-18-2023 Epithelial cells.squamous LM Ql (Urine sed) 3-4 [HPF] 0-2 [facility] Urate [Mass/volume] in Serum or PlasmaOrdered By: Dilan Nguyễn on 07-18-2023 Urate [Mass/Vol] 5.4 mg/dL Normal 2.3-6.6 [facility] Comment on above: Order Comment: Reaso n for Exam Hypertensive chronic kidney disease with stage 1 through sta Performed By: #### M G, [id number], URIC, RENAL #### [facility] [address] [place] [id number] [place] Urea nitrogen [Mass/volume] in Serum or PlasmaOrdered By: Dilan Nguyễn on 07-18-2023 Urea nitrogen [Mass/Vol] 43 mg/dL High 7-25 [facility] Comment on above: Order Comment: Reaso n for Exam Hypertensive chronic kidney disease with stage 1 through sta Performed By: #### M G, [id number], URIC, RENAL #### [facility] [address] [place] [address] [place] Urine Cultureon 07-18-2023 Bacteria identified Cx Nom (U) <9,000 colonies/ml mixed bacterial skin contaminants 2 Days PERFORMED BY: [place] [address] PATHOLOGIST ETCH OPERATOR [employer] JACQUELINE ZAVALA M.D. Normal [facility] Comment on above: Performed By: #### R ENAL, MG, [id number], CBCNO, URIC, PTH #### [facility] [address] Urine bacteria detection by automated methodOrdered By: Dilan Nguyễn on 07-18-2023 Bacteria Auto Ql (U) None seen None Seen [facility] Urine clarity by refractomet ry automatedOrdered By: Dilan Nguyễn on 07-18-2023 Clarity Refractometry automated (U) Clear Clear [facility] Urine culture routineOrdered By: Dilan Nguyễn on 07-18-2023 Bacteria identified Cx Nom (U) 2 Days [facility] Urine glucose measurement by automated test strip (mass/volume)Ordered By: Dilan Nguyễn on 07-18-2023 Glucose Auto test strip (U) [Mass/Vol] 500 mg/dL Normal [facility] Urine hemoglobin detection b y automated test stripOrdered By: Dilan Nguyễn on 07-18-2023 Hemoglobin Auto test strip Ql (U) Trace Negative [facility] Urine leukocyte esterase det ection by automated test stripOrdered By: Dilan Nguyễn on 07-18-2023 Leukocyte esterase Auto test strip Ql (U) 3+ Negative [facility] Urine pH measurement by auto mated test stripOrdered By: Dilan Nguyễn on 07-18-2023 pH (U) 5.5 [pH] Normal 5.0-9.0 [facility] Comment on above: Order Comment: Reaso n for Exam Hypertensive chronic kidney disease with stage 1 through sta Name Collection Type:: Clean-Voided Midstream Performed By: #### R ENAL, MG, [id number], CBCNO, URIC, PTH #### [facility] [address] [place] [id number] [facility] Urine protein/creatinine rat ioOrdered By: Dilan Nguyễn on 07-18-2023 Protein/Creatinine (U) [Ratio] TNP [facility] Comment on above: Test not performed Urobilinogen Auto test strip (U) [Mass/Vol]Ordered By: Dilan Nguyễn on 07-18-2023 Urobilinogen (U) [Mass/Vol] Normal mg/dL Normal [facility] Vitamin D 25 Hydroxy Totalon 07-18-2023 Vitamin D 25 Hydroxy Total 47.8 ng/mL Normal 30-100 [facility] Comment on above: Order [...] practice guideline. JCEM. 2010; 96(7):1911-30. PERFORMED BY: [place] [address] PATHOLOGIST ETCH OPERATOR [employer] JACQUELINE ZAVALA M.D. Performed By: #### M G, [id number], URIC, RENAL #### [facility] [address] [place], [place] [id number] [facility] Vitamin D+Metabolites [Mass/ volume] in Serum or PlasmaOrdered By: Dlian Nguyễn on 07-18-2023 Vitamin D+Metabolites [Mass/Vol] 47.8 ng/mL 30-100 [facility] Comment on above: VITAMIN D STATUS [...] 08/28/2022 Submitting Physician: REYNA RDZ MD Location: [facility] Other External # FINAL DIAGNOSIS SKIN, L UPPER BACK, EXCISION: CHANGES CONSISTENT WITH PREVIOUS PROCEDURE, INKED MARGINS FREE IN PLANES OF SECTIONS EXAMINED WITHOUT RESIDUAL ATYPICAL MELANOCYTIC NEOPLASM SEEN. Electronically Signed Out by GUS VIDAL M.D. Electronically Signed Out By GUS VIDAL MD/[facility] By the signature on this report, the individual or group listed as making the Final Interpretation/Diagnosi s certifies that they have reviewed this case. Diagnostic interpretation performed at Dermatopath Lab [address] [place] [address] Microscopic Description: Microscopic examination reveals a specimen that extends into the subcutaneous fat. An area with horizontally oriented collagen and vertically oriented vessels is present. Clinical History: R/O clear margins [id number]. Excision. (Aleksandr) Specimens Submitted As: A: SKIN, L UPPER BACK Gross Description: Received in formalin is a rosas ellipsoid piece of skin measuring [id number]. The specimen is inked and embedded in toto in three blocks. The tips are in block A1. ink/08/27/2022 [facility]ermatopathology Laboratory [address] [address] Normal [facility] Comment on above: Performed By: #### D #### Dermatopathology Albumin [Mass/volume] in Ser um or Plasma by Bromocresol green (BCG) dye binding methoOrdered By: Dilan Nguyễn on 07-13-2022 Albumin BCG dye [Mass/Vol] 4.1 g/dL 3.5-5.7 [facility] Automated erythrocytes count in urine sediment (number/area)Ordered By: Dilan Nguyễn on 07-13-2022 RBC Auto (Urine sed) [#/Area] 0-1 [HPF] 0-4 [facility] Automated leukocytes count i n urine sediment (number/area)Ordered By: Dilan Nguyễn on 07-13-2022 WBC Auto (Urine sed) [#/Area] 10-19 [HPF] 0-4 [facility] Bilirubin Test strip Ql (U)O rdered By: Dilan Nguyễn on 07-13-2022 Bilirubin Ql (U) Negative Negative [facility] Calcium [Mass/volume] in Ser um or PlasmaOrdered By: Dilan Nguyễn on 07-13-2022 Calcium [Mass/Vol] 9.4 mg/dL 8.6-10.3 [facility] Carbon dioxide, total [Moles /volume] in Serum or PlasmaOrdered By: Dilan Nguyễn on 07-13-2022 CO2 [Moles/Vol] 24.7 mmol/L 21.0-31.0 [facility] Chloride [Moles/volume] in S hayder or PlasmaOrdered By: Dilan Nguyễn on 07-13-2022 Chloride [Moles/Vol] 109 mmol/L 98-107 [facility] Color Auto (U)Ordered By: Ab halie Nguyễn on 07-13-2022 Color (U) Yellow Yellow [facility] Creatinine [Mass/volume] in Serum or PlasmaOrdered By: Dilan Nguyễn on 07-13-2022 Creatinine [Mass/Vol] 1.63 mg/dL 0.60-1.20 [facility] Erythrocyte distribution wid th Auto (RBC) [Ratio]Ordered By: Dilan Nguyễn on 07-13-2022 Erythrocyte distribution width (RBC) [Ratio] 14.9 % 11.9-15.3 [facility] Glucose [Mass/volume] in Ser um or PlasmaOrdered By: Dilan Nguyễn on 07-13-2022 Glucose [Mass/Vol] 76 mg/dL 74-109 [facility] Comment on above: ADA recommended refe rence rangeRandom Glucose Reference Range is dependent on time and content of last meal. Glucose of more than 200 mg/dL in a nonstressed, ambulatory subject supports the diagnosis of Diabetes Mellitus. Hematocrit Auto (Bld) [Volum e fraction]Ordered By: Dilan Nguyễn on 07-13-2022 Hematocrit (Bld) [Volume fraction] 42.1 % 34.0-46.4 [facility] Hemoglobin [Mass/volume] in BloodOrdered By: Dilan Nguyễn on 07-13-2022 Hemoglobin (Bld) [Mass/Vol] 13.9 g/dL 11.8-15.4 [facility] Ketones Auto test strip (U) [Mass/Vol]Ordered By: Dilan Nguyễn on 07-13-2022 Ketones (U) [Mass/Vol] Negative Negative [facility] - Chemistry and C hemistry - challengeOrdered By: Dilan Nguyễn on 07-13-2022 GFR/1.73 sq M.predicted MDRD (S/P/Bld) [Vol rate/Area] 33.511 mL/min/{1.73_m2} [facility] Laboratory - UrinalysisOrder ed By: Dilan Nguyễn on 07-13-2022 Hyaline casts LM Ql (Urine sed) None seen [LPF] 0-8 [facility] Leukocytes [#/volume] correc cristine for nucleated erythrocytes in Blood by Automated counOrdered By: Dilan Nguyễn on 07-13-2022 WBC corrected for nucl RBC Auto (Bld) [#/Vol] 10.9 10*3/uL 3.8-11.6 [facility] MCH Auto (RBC) [Entitic mass ]Ordered By: Dilan Nguyễn on 07-13-2022 MCH (RBC) [Entitic mass] 29.7 pg 24.7-34.3 [facility] MCHC Auto (RBC) [Mass/Vol]Or dered By: Dilan Nguyễn on 07-13-2022 MCHC (RBC) [Mass/Vol] 33.1 g/dL 32.0-35.0 [facility] MCV Auto (RBC) [Entitic vol] Ordered By: Dilan Nguyễn on 07-13-2022 MCV (RBC) [Entitic vol] 89.8 fL 80-100 [facility] Magnesium [Mass/volume] in S hayder or PlasmaOrdered By: Dilan Nguyễn on 07-13-2022 Magnesium [Mass/Vol] 2.1 mg/dL 1.9-2.7 [facility] Nitrite Test strip Ql (U)Ord ered By: Dilan Nguyễn on 07-13-2022 Nitrite Ql (U) Negative Negative [facility] No Panel InformationOrdered By: Dilan Nguyễn on 07-13-2022 Pharmacy Creatinine Clearance (Chem N/A [facility] Parathyrin.intact [Mass/volu me] in Serum or PlasmaOrdered By: Dilan Nguyễn on 07-13-2022 Parathyrin.intact [Mass/Vol] 38.3 pg/mL 12-88 [facility] Phosphate [Mass/volume] in S hayder or PlasmaOrdered By: Dilan Nguyễn on 07-13-2022 Phosphate [Mass/Vol] 4.1 mg/dL 3.7-7.2 [facility] Platelet mean volume Auto (B ld) [Entitic vol]Ordered By: Dilan Nguyễn on 07-13-2022 Platelet mean volume (Bld) [Entitic vol] 9.0 fL 6.3-10.7 [facility] Platelets Auto (Bld) [#/Vol] Ordered By: Dilan Nguyễn on 07-13-2022 Platelets (Bld) [#/Vol] 363 10*3/uL 150-450 [facility] Potassium [Moles/volume] in Serum or PlasmaOrdered By: Dilan Nguyễn on 07-13-2022 Potassium [Moles/Vol] 4.2 mmol/L 3.5-5.1 [facility] Protein Auto test strip (U) [Mass/Vol]Ordered By: Dilan Nguyễn on 07-13-2022 Protein (U) [Mass/Vol] Negative Negative [facility] RBC Auto (Bld) [#/Vol]Ordere d By: Dilan Nguyễn on 07-13-2022 RBC (Bld) [#/Vol] 4.69 10*6/uL 3.60-5.00 [facility] Serum or plasma anion gap de terminationOrdered By: Dilan Nguyễn on 07-13-2022 Anion gap [Moles/Vol] 11.5 mmol/L 6.0-15.0 [facility] Sodium [Moles/volume] in Ser um or PlasmaOrdered By: Dilan Nguyễn on 07-13-2022 Sodium [Moles/Vol] 141 mmol/L 136-145 [facility] Specific gravity Auto test s trip (U) [Rel density]Ordered By: Dilan Nguyễn on 07-13-2022 Specific gravity (U) [Rel density] 1.019 1.001-1.030 [facility] Squamous epithelial cells de tection in urine sediment by light microscopyOrdered By: Dilan Nguyễn on 07-13-2022 Epithelial cells.squamous LM Ql (Urine sed) 3-4 [HPF] 0-2 [facility] Urate [Mass/volume] in Serum or PlasmaOrdered By: Dilan Nguyễn on 07-13-2022 Urate [Mass/Vol] 5.3 mg/dL 2.3-6.6 [facility] Urea nitrogen [Mass/volume] in Serum or PlasmaOrdered By: Dilan Nguyễn on 07-13-2022 Urea nitrogen [Mass/Vol] 34 mg/dL 7-25 [facility] Urine bacteria detection by automated methodOrdered By: Dilan Nguyễn on 07-13-2022 Bacteria Auto Ql (U) None seen None Seen [facility] Urine clarity by refractomet ry automatedOrdered By: Dilan Nguyễn on 07-13-2022 Clarity Refractometry automated (U) Clear Clear [facility] Urine glucose measurement by automated test strip (mass/volume)Ordered By: Dilan Nguyễn on 07-13-2022 Glucose Auto test strip (U) [Mass/Vol] >=1000 mg/dL Normal [facility] Urine hemoglobin detection b y automated test stripOrdered By: Dilan Nguyễn on 07-13-2022 Hemoglobin Auto test strip Ql (U) Negative Negative [facility] Urine leukocyte esterase det ection by automated test stripOrdered By: Dilan Nguyễn on 07-13-2022 Leukocyte esterase Auto test strip Ql (U) 2+ Negative [facility] Urobilinogen Auto test strip (U) [Mass/Vol]Ordered By: Dilan Nguyễn on 07-13-2022 Urobilinogen (U) [Mass/Vol] Normal mg/dL Normal [facility] Vitamin D+Metabolites [Mass/ volume] in Serum or PlasmaOrdered By: Dilan Nguyễn on 07-13-2022 Vitamin D+Metabolites [Mass/Vol] 48.0 ng/mL 30-100 [facility] Comment on above: VITAMIN D STATUS 25( [place])VITAMIN D RANGE (ng/mL) Deficient <20 Insufficient 20 to <30Sufficient 30 to 100Reference: Brittni MF,Mitzy NC, Brandt CONNER, et al. Evaluation,treatment, and prevention of vitamin D deficiency; an Endocrine Society clinical practice guideline. JCEM. 2010; 96(7):1911-30. pH Auto test strip (U)Ordere d By: Dilan Nguyễn on 07-13-2022 pH (U) 5.5 [pH] 5.0-9.0 [facility] Dermatopathologyon Dermatopathology Name CHLOE PICKENS Pathologist: GUS VIDAL MD Date of Procedure: 07/10/2022 Date Received: 07/11/2022 Date Reported 07/12/2022 Submitting Physician: REYNA RDZ MD Location: [facility] Copy To/Referring/Attending: HUNTER BHAGAT MD Other External [...] M.D. Electronically Signed Out By GUS VIDAL MD/[facility] By the signature on this report, the individual or group listed as making the Final Interpretation/Diagnosi s certifies that they have reviewed this case. Diagnostic interpretation performed at Dermatopath Lab [address] [address], [facility] [address] Microscopic Description: A. Microscopic analysis shows an [...] Lentigo and SK. Hx MM. Shave Biopsy. ([facility]). Specimens Submitted As: A: SKIN, L UPPER BACK B: SKIN, L MID BACK Gross Description: A: Received in formalin is one rosas-brown piece of skin measuring [id number]. The specimen is inked and embedded in toto. B: Received in formalin is one rosas-brown piece of skin measuring [id number]. The specimen is inked and embedded in toto. nyp/07/11/2022 [facility] Dermatopathology Laboratory [address] [place] [address] Comment on above: Performed By: #### D #### Dermatopathology Albumin [Mass/volume] in Ser um or PlasmaOrdered By: Dilan Nguyễn on 05-13-2022 Albumin [Mass/Vol] 3.6 g/dL 3.2-5.5 [facility] Creatinine and Glomerular fi ltration rate.predicted panel (S/P/Bld)Ordered By: Dilan Nguyễn on 05-13-2022 Creatinine [Mass/Vol] 1.77 mg/dL 0.44-1.03 [facility] Estimated glomerular filtrat ion rate (GFR) non- AmericanOrdered By: Dilan Nguyễn on 05-13-2022 GFR/1.73 sq M.predicted among non-blacks MDRD (S/P/Bld) [Vol rate/Area] 28 mL/Min [facility] Laboratory - Chemistry and C hemistry - challengeOrdered By: Dilan Nguyễn on 05-13-2022 Magnesium [Mass/Vol] 2.0 mg/dL 1.6-2.6 [facility] Magnesiumon 05-13-2022 Magnesium [Mass/Vol] 2.9413667 mg/dL Normal 1.6- 2.6 mg/dL [employer] Other No Panel InformationOrdered By: Dilan Nguyễn on 05-13-2022 Estimated GFR () 34 mL/Min [facility] Comment on above: GFR estimated refere nce range: According to KDOQI guidelines, <60 ml/min/1.73m2 is sufficient to diagnose a patient with chronic kidney disease. Pharmacy Creatinine Clearance (Chem N/A [facility] Phosphate [Mass/volume] in S hayder or PlasmaOrdered By: Dilan Nguyễn on 05-13-2022 Phosphate [Mass/Vol] 3.9 mg/dL 2.5-4.6 [facility] Renal Function Panelon 05-13 Albumin [Mass/Vol] 3.930853 g/dL Normal 3.2-5.5 g/dL [employer] Other Calcium [Mass/Vol] 9.7060297 mg/dL Normal 8.2-10 .2 mg/dL [employer] Other CO2 [Moles/Vol] 25.10487318 mmol/L Normal 22.0-3 0.0 mmol/L [employer] Other Creatinine [Mass/Vol] 1.50351575 mg/dL High 0. 44-1.03 mg/dL [employer] Other Phosphate [Mass/Vol] 3.5209034 mg/dL Normal 2.5- 4.6 mg/dL [employer] Other Potassium [Moles/Vol] 4.56354051 mmol/L Normal 3 .5-5.1 mmol/L [employer] Other Renal Function Panel 28 [employer] Other Renal Function Panel 34 [facility] [employer] Other Serum or plasma anion gap de terminationOrdered By: Dilan Nguyễn on 05-13-2022 Anion gap [Moles/Vol] 11.0 mmol/L 6.0-15.0 [facility] Serum or plasma calcium xavier urement (mass/volume)Ordered By: Dilan Nguyễn on 05-13-2022 Calcium [Mass/Vol] 9.2 mg/dL 8.2-10.2 [facility] Serum or plasma chloride bisi surement (moles/volume)Ordered By: Dilan Nguyễn on 05-13-2022 Chloride [Moles/Vol] 105 mmol/L 95-114 [facility] Serum or plasma glucose xavier urement (mass/volume)Ordered By: Dilan Nguyễn on 05-13-2022 Glucose [Mass/Vol] 189 mg/dL 70-100 [facility] Comment on above: ADA recommended refe rence rangeRandom Glucose Reference Range is dependent on time and content of last meal. Glucose of more than 200 mg/dL in a nonstressed, ambulatory subject supports the diagnosis of Diabetes Mellitus. Serum or plasma potassium me asurement (moles/volume)Ordered By: Dilan Nguyễn on 05-13-2022 Potassium [Moles/Vol] 4.5 mmol/L 3.5-5.1 [facility] Serum or plasma sodium measu rement (moles/volume)Ordered By: Dilan Nguyễn on 05-13-2022 Sodium [Moles/Vol] 137 mmol/L 136-146 [facility] Serum or plasma total carbon dioxide measurement (moles/volume)Ordered By: Dilan Nguyễn on 05-13-2022 CO2 [Moles/Vol] 25.5 mmol/L 22.0-30.0 [facility] Serum or plasma urea nitroge n measurement (mass/volume)Ordered By: Dilan Nguyễn on 05-13-2022 Urea nitrogen [Mass/Vol] 27 mg/dL 9-23 [facility] Body fluid albumin measureme nt (mass/volume)Ordered By: Dilan Nguyễn on 03-06-2022 Albumin (Body fld) [Mass/Vol] 3.8 g/dL 3.2-5.5 [facility] Creatinine and Glomerular fi ltration rate.predicted panel (S/P/Bld)Ordered By: Dilan Nguyễn on 03-06-2022 Creatinine [Mass/Vol] 1.69 mg/dL 0.44-1.03 [facility] Estimated glomerular filtrat ion rate (GFR) non- AmericanOrdered By: Dilan Nguyễn on 03-06-2022 GFR/1.73 sq M.predicted among non-blacks MDRD (S/P/Bld) [Vol rate/Area] 30 mL/Min [facility] Laboratory - Chemistry and C hemistry - challengeOrdered By: Dilan Nguyễn on 03-06-2022 Magnesium [Mass/Vol] 2.1 mg/dL 1.6-2.6 [facility] No Panel InformationOrdered By: Dilan Nguyễn on 03-06-2022 Estimated GFR () 36 mL/Min [facility] Comment on above: GFR estimated refere nce range: According to KDOQI guidelines, <60 ml/min/1.73m2 is sufficient to diagnose a patient with chronic kidney disease. Pharmacy Creatinine Clearance (Chem N/A [facility] Phosphate [Mass/volume] in S hayder or PlasmaOrdered By: Dilan Nguyễn on 03-06-2022 Phosphate [Mass/Vol] 4.3 mg/dL 2.5-4.6 [facility] Serum or plasma anion gap de terminationOrdered By: Dilan Nguyễn on 03-06-2022 Anion gap [Moles/Vol] 15.9 mmol/L 6.0-15.0 [facility] Serum or plasma calcium xavier urement (mass/volume)Ordered By: Dilan Nguyễn on 03-06-2022 Calcium [Mass/Vol] 9.8 mg/dL 8.2-10.2 [facility] [facility] Serum or plasma chloride bisi surement (moles/volume)Ordered By: Dilan Nguyễn on 03-06-2022 Chloride [Moles/Vol] 100 mmol/L 95-114 [facility] Serum or plasma glucose xavier urement (mass/volume)Ordered By: Dilan Nguyễn on 03-06-2022 Glucose [Mass/Vol] 84 mg/dL 70-100 [facility] Comment on above: ADA recommended refe rence rangeRandom Glucose Reference Range is dependent on time and content of last meal. Glucose of more than 200 mg/dL in a nonstressed, ambulatory subject supports the diagnosis of Diabetes Mellitus. Serum or plasma potassium me asurement (moles/volume)Ordered By: Dilan Nguyễn on 03-06-2022 Potassium [Moles/Vol] 4.5 mmol/L 3.5-5.1 [facility] Serum or plasma sodium measu rement (moles/volume)Ordered By: Dilan Nguyễn on 03-06-2022 Sodium [Moles/Vol] 139 mmol/L 136-146 [facility] Serum or plasma total carbon dioxide measurement (moles/volume)Ordered By: Dilan Nguyễn on 03-06-2022 CO2 [Moles/Vol] 27.6 mmol/L 22.0-30.0 [facility] Serum or plasma urea nitroge n measurement (mass/volume)Ordered By: Dilan Nguyễn on 03-06-2022 Urea nitrogen [Mass/Vol] 33 mg/dL 9-23 [facility] Urine culture routineOrdered By: Dilan Nguyễn on 02-22-2022 Bacteria identified Cx Nom (U) 2 Days [facility] Automated erythrocytes count in urine sediment (number/area)Ordered By: Dilan Nguyễn on 02-20-2022 RBC Auto (Urine sed) [#/Area] None seen [HPF] 0-4 [facility] Automated leukocytes count i n urine sediment (number/area)Ordered By: Dilan Nguyễn on 02-20-2022 WBC Auto (Urine sed) [#/Area] 5-9 [HPF] 0-4 [facility] Bilirubin Test strip Ql (U)O rdered By: Dilan Nguyễn on 02-20-2022 Bilirubin Ql (U) Negative Negative [facility] Body fluid albumin measureme nt (mass/volume)Ordered By: Dilan Nguyễn on 02-20-2022 Albumin (Body fld) [Mass/Vol] 3.5 g/dL 3.2-5.5 [facility] Color Auto (U)Ordered By: Ab halie Nguyễn on 02-20-2022 Color (U) Yellow Yellow [facility] Creatinine [Mass/volume] in UrineOrdered By: Dilan Nguyễn on 02-20-2022 Creatinine (U) [Mass/Vol] 33.4 mg/dL [facility] Comment on above: No reference range e stablished Creatinine and Glomerular fi ltration rate.predicted panel (S/P/Bld)Ordered By: Dilan Nguyễn on 02-20-2022 Creatinine [Mass/Vol] 1.69 mg/dL 0.44-1.03 [facility] Erythrocyte distribution wid th Auto (RBC) [Ratio]Ordered By: Dilan Nguyễn on 02-20-2022 Erythrocyte distribution width (RBC) [Ratio] 14.7 % 11.9-15.3 [facility] Estimated glomerular filtrat ion rate (GFR) non- AmericanOrdered By: Dilan Nguyễn on 02-20-2022 GFR/1.73 sq M.predicted among non-blacks MDRD (S/P/Bld) [Vol rate/Area] 30 mL/Min [facility] Hematocrit Auto (Bld) [Volum e fraction]Ordered By: Dilan Nguyễn on 02-20-2022 Hematocrit (Bld) [Volume fraction] 44.9 % 34.0-46.4 [facility] Hemoglobin [Mass/volume] in BloodOrdered By: Dilan Nguyễn on 02-20-2022 Hemoglobin (Bld) [Mass/Vol] 14.5 g/dL 11.8-15.4 [facility] Ketones Auto test strip (U) [Mass/Vol]Ordered By: Dilan Nguyễn on 02-20-2022 Ketones (U) [Mass/Vol] Negative Negative [facility] Laboratory - Chemistry and C hemistry - challengeOrdered By: Dilan Nguyễn on 02-20-2022 Magnesium [Mass/Vol] 1.9 mg/dL 1.6-2.6 [facility] Laboratory - UrinalysisOrder ed By: Dilan Nguyễn on 02-20-2022 Hyaline casts LM Ql (Urine sed) 0-8 [LPF] 0-8 [facility] MCH Auto (RBC) [Entitic mass ]Ordered By: Dilan Nguyễn on 02-20-2022 MCH (RBC) [Entitic mass] 28.8 pg 24.7-34.3 [facility] MCHC Auto (RBC) [Mass/Vol]Or dered By: Dilan Nguyễn on 02-20-2022 MCHC (RBC) [Mass/Vol] 32.3 g/dL 32.0-35.0 [facility] MCV Auto (RBC) [Entitic vol] Ordered By: Dilan Nguyễn on 02-20-2022 MCV (RBC) [Entitic vol] 89.2 fL 80-100 [facility] Nitrite Test strip Ql (U)Ord ered By: Dilan Nguyễn on 02-20-2022 Nitrite Ql (U) Negative Negative [facility] No Panel InformationOrdered By: Dilan Nguyễn on 02-20-2022 25-Hydroxy Vitamin D Total 43.0 ng/mL 30-100 [facility] Comment on above: VITAMIN D STATUS 25( [place])VITAMIN D RANGE (ng/mL) Deficient <20 Insufficient 20 to <30Sufficient 30 to 100Reference: Brittni MF,Mitzy NC, Brandt CONNER, et al. Evaluation,treatment, and prevention of vitamin D deficiency; an Endocrine Society clinical practice guideline. JCEM. 2010; 96(7):1911-30. Estimated GFR () 36 mL/Min [facility] Comment on above: GFR estimated refere nce range: According to KDOQI guidelines, <60 ml/min/1.73m2 is sufficient to diagnose a patient with chronic kidney disease. Pharmacy Creatinine Clearance (Chem N/A [facility] Phosphate [Mass/volume] in S hayder or PlasmaOrdered By: Dilan Nguyễn on 02-20-2022 Phosphate [Mass/Vol] 3.9 mg/dL 2.5-4.6 [facility] Platelet mean volume Auto (B ld) [Entitic vol]Ordered By: Dilan Nguyễn on 02-20-2022 Platelet mean volume (Bld) [Entitic vol] 8.6 fL 6.3-10.7 [facility] Platelets Auto (Bld) [#/Vol] Ordered By: Dilan Nguyễn on 02-20-2022 Platelets (Bld) [#/Vol] 327 10*3/uL 150-450 [facility] Protein Auto test strip (U) [Mass/Vol]Ordered By: Dilan Nguyễn on 02-20-2022 Protein (U) [Mass/Vol] Negative Negative [facility] Protein [Mass/volume] in Uri neOrdered By: Dilan Nguyễn on 02-20-2022 Protein (U) [Mass/Vol] mg/dL 0-9 [facility] RBC Auto (Bld) [#/Vol]Ordere d By: Dilan Nguyễn on 02-20-2022 RBC (Bld) [#/Vol] 5.04 10*6/uL 3.60-5.00 [facility] Serum or plasma anion gap de terminationOrdered By: Dilan Nguyễn on 02-20-2022 Anion gap [Moles/Vol] 10.6 mmol/L 6.0-15.0 [facility] Serum or plasma calcium xavier urement (mass/volume)Ordered By: Dilan Nguyễn on 02-20-2022 Calcium [Mass/Vol] 9.1 mg/dL 8.2-10.2 [facility] Serum or plasma chloride bisi surement (moles/volume)Ordered By: Dilan Nguyễn on 02-20-2022 Chloride [Moles/Vol] 105 mmol/L 95-114 [facility] Serum or plasma glucose xavier urement (mass/volume)Ordered By: Dilan Nguyễn on 02-20-2022 Glucose [Mass/Vol] 116 mg/dL 70-100 [facility] Comment on above: ADA recommended refe rence rangeRandom Glucose Reference Range is dependent on time and content of last meal. Glucose of more than 200 mg/dL in a nonstressed, ambulatory subject supports the diagnosis of Diabetes Mellitus. Serum or plasma intact parat hyroid hormone measurement (mass/volume)Ordered By: Dilan Nguyễn on 02-20-2022 Parathyrin.intact [Mass/Vol] 48.5 pg/mL 12-88 [facility] Serum or plasma potassium me asurement (moles/volume)Ordered By: Dilan Nguyễn on 02-20-2022 Potassium [Moles/Vol] 3.9 mmol/L 3.5-5.1 [facility] Serum or plasma sodium measu rement (moles/volume)Ordered By: Dilan Nguyễn on 02-20-2022 Sodium [Moles/Vol] 137 mmol/L 136-146 [facility] Serum or plasma total carbon dioxide measurement (moles/volume)Ordered By: Dilan Nguyễn on 02-20-2022 CO2 [Moles/Vol] 25.3 mmol/L 22.0-30.0 [facility] Serum or plasma urea nitroge n measurement (mass/volume)Ordered By: Dilan Nguyễn on 02-20-2022 Urea nitrogen [Mass/Vol] 26 mg/dL 9-23 [facility] Serum or plasma uric acid me asurement (mass/volume)Ordered By: Dilan Nguyễn on 02-20-2022 Urate [Mass/Vol] 4.3 mg/dL 2.6-7.2 [facility] Specific gravity Auto test s trip (U) [Rel density]Ordered By: Dilan Nguyễn on 02-20-2022 Specific gravity (U) [Rel density] 1.010 1.001-1.030 [facility] Squamous epithelial cells de tection in urine sediment by light microscopyOrdered By: Dilan Nguyễn on 02-20-2022 Epithelial cells.squamous LM Ql (Urine sed) 1-2 [HPF] 0-2 [facility] Urine bacteria detection by automated methodOrdered By: Dilan Nguyễn on 02-20-2022 Bacteria Auto Ql (U) None seen None Seen [facility] Urine clarity by refractomet ry automatedOrdered By: Dilan Nguyễn on 02-20-2022 Clarity Refractometry automated (U) Clear Clear [facility] Urine culture routineOrdered By: Dilan Nguyễn on 02-20-2022 Bacteria identified Cx Nom (U) 2 Days [facility] Urine glucose measurement by automated test strip (mass/volume)Ordered By: Dilan Nguyễn on 02-20-2022 Glucose Auto test strip (U) [Mass/Vol] Normal mg/dL Normal [facility] Urine hemoglobin detection b y automated test stripOrdered By: Dilan Nguyễn on 02-20-2022 Hemoglobin Auto test strip Ql (U) Negative Negative [facility] Urine leukocyte esterase det ection by automated test stripOrdered By: Dilan Yandir on 02-20-2022 Leukocyte esterase Auto test strip Ql (U) 3+ Negative [facility] Urine protein/creatinine rat ioOrdered By: Dilan Nguyễn on 02-20-2022 Protein/Creatinine (U) [Ratio] TNP [facility] Comment on above: Test not performed Urobilinogen Auto test strip (U) [Mass/Vol]Ordered By: Dilan Nguyễn on 02-20-2022 Urobilinogen (U) [Mass/Vol] Normal mg/dL Normal [facility] WBC Auto (Bld) [#/Vol]Ordere d By: Dilan Yandir on 02-20-2022 WBC (Bld) [#/Vol] 8.0 10*3/uL 3.8-11.6 [facility] pH Auto test strip (U)Ordere d By: Dilan Nguyễn on 02-20-2022 pH (U) 6.0 [pH] 5.0-9.0 [facility] Office Visit (Oncology Surge ry)on 06-18-2021 [...] any other skin lesions. She saw her Wound Specialist Dr. Kelley and underwent a biopsy of [...] biopsies. She is being seen by a Chief Unit Forester for various issues including Left arm swelling. [...] MG Oral TabletTAKE 1 TABLET DAILY. Biotin [id number] 1 CAPSULE ORALLY bid Carvedilol 12.5 MG [...] 24 Hour Signatures Electronically signed by : Hetah Francisco, (more content not included)... 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 She saw her Wound Specialist Dr. Kelley and underwent a biopsy of [...] Some irritable (more content not included)... Normal [facility] Office Visit (Oncology Surge ry)on 08-14-2020 [...] any other skin lesions. She saw her Wound Specialist Dr. Kelley and underwent a biopsy of [...] (CVA) (V17.1) (more content not included)... Normal [facility] GLUCOSE-POCTon 10-08-2019 Glucose [Mass/Vol] 257 mg/dL High 74 - 99 [facility] Comment on above: Result Comment: Erna short MD/RN Performed By: #### G RYAN #### [address] [address] Glucose [Mass/Vol] 281 mg/dL High 74 - 99 [facility] Comment on above: Performed By: #### G RYAN #### [address] [address] History and Physical - Surge ry > [...] any other skin lesions. She saw her Wound Specialist Dr. Kelley and underwent a biopsy of [...] Last Updated: 08-Oct-2019 07:22 by Heath Francisco) [facility] Operative Reports - [place] on 10-08-2019 Operative Reports - [place] Preoperative diagnosis: Left upper arm melanoma Postoperative diagnosis: Same Procedure: 1) Wide excision Left upper arm melanoma with 1 cm. margins and intermediate repair of a 9cm. wound defect. Surgeon: Heath Francisco M.D. Internet Project Manager: Tanya MCGREGOR Anesthesia: MAC and local [...] Last Updated: 08-Oct-2019 08:42 by Heath Francisco) [facility] Patient Profile - Preop v2on 10-08-2019 Patient Profile - Preop v2 Profile: Initial Info: How to be AddressedBARB Spoken Language PreferredEnglish Stated Reason for AdmissionMELENOMA REMOVED LT ARM Primary Contact Name and [phone] Patient Belongingsnone Medications Brought to Hospitalno Are you currently using the Personal Electronic Health Record or MYCAREno Are you interested in learning more about [facility] for the management of your healthnot at this time General Health: Blood Avoidance/Restrictionsn one Weight in kg120 kilogram(s) Weight in com624.5 pound(s) Weight Methodstated Height in cm165.1 centimeter(s) Height in feet5 feet Height in inches5 inch(es) Height Methodstated BMI (kg/m2)44.023 square meter Patient or Family Member Reaction to Anesthesiano previous reaction Health Mgmt: Barriers to Managing Healthnone [facility]LE[facility] Relationship/Environ: Living [...] Learning Preferencesverbal instruction Cultural Considerationsnone Developmental Considerationsnone Mandaen Considerationsnone Other learner availableno Falls RiskPatient location [...] Updated: 08-Oct-2019 07:36 by Danuta Ngo (RN) [facility] Preop Checkliston 10-08-2019 Preop Checklist Preop Checklist: Preop Checklist: Arrival [id number] Arrival Time06:10 Procedure TypeLT ARM MELANOMA REOVED Temperature C37.4 degrees C Temperature F99.3 degrees F Heart Rate74 beats per minute Respiratory Rate16 breath per minute Blood Pressure Egydkrcr482 mm/Hg Blood Pressure Oecijizex50 mm/Hg NPO [id number] 23:00 ID Band Onyes Allergy Bandyes Consent [...] 08-Oct-2019 07:39 by Danuta Ngo (RN) Normal [facility] NEW MICROALBUMINon 9 Creatinine mass conc (U) 59.2 mg/dL Normal [facility] Comment on above: Order Comment: THE M ICROALBUMIN IS < 6.0 THEREFORE THE MICROALBUMIN/CREATININE RATIO IS UNDETECTABLE. Performed By: #### 8 00 #### [facility] Unless Otherwise Noted [address] [facility] [address] [place] [address] / COLA #4724/CLIA # [id number] Microalbumin <6.0 Normal 0.0-30.0 [facility] Comment on above: Order Comment: THE M ICROALBUMIN IS < 6.0 THEREFORE THE MICROALBUMIN/CREATININE RATIO IS UNDETECTABLE. Performed By: #### 8 00 #### [facility] Unless Otherwise Noted [address] [address] / COLA #4724/CLIA # [id number] Urine A/C Ratio -99.0 mg/g Low 0.0-30.0 [facility] Comment on above: Order Comment: THE M ICROALBUMIN IS < 6.0 THEREFORE THE MICROALBUMIN/CREATININE RATIO IS UNDETECTABLE. Performed By: #### 8 00 #### [facility] Unless Otherwise Noted [address] [address] / COLA #4724/CLIA # [id number] LIPID PANEL (INCLUDES CALCUL ATED LDL)on 07-08-2018 Cholesterol in LDL/Cholesterol in HDL mass ratio 1.8 Normal <3.5 [facility] Comment on above: Performed By: #### 3 29 #### [facility] [place] Unless Otherwise Noted [address] [address] / COLA #4724/CLIA # [id number] Cholesterol mass conc 165 mg/dL Normal <200 End [facility] [place] Comment on above: Performed By: #### 3 29 #### [facility] Unless Otherwise Noted [address] [address] / COLA #4724/CLIA # [id number] Cholesterol.total/Chol esterol in HDL mass ratio 3.8 {ratio} Normal <5 [facility] Comment on above: Result Comment: [employer]. [address] [place] [address] CLIA No. [id number] CAP Accreditation No. [id number] Fold Skiver: Ray Tate M.D. Performed By: #### 3 29 #### [facility] Unless Otherwise Noted [address] [address] / COLA #4724/CLIA # [id number] HDL-CHOL 43.1 mg/dL Normal >39 [facility] Comment on above: Result Comment: HDL <40 mg/dL IS A RISK FACTOR FOR CORONARY HEART DISEASE. HDL >60 mg/dL IS A NEGATIVE RISK FACTOR FOR CORONARY HEART DISEASE. Performed By: #### 3 29 #### [facility] Unless Otherwise Noted [address] [address] / COLA #4724/CLIA # [id number] LDL-CHOL, CALCULATED 76 mg/dL Normal <130 [facility] Comment on above: Result Comment: LDL CHOLESTEROL REFERENCE RANGE FOR 0-19 YEARS: DESIRABLE <110 mg/dL, BORDERLINE 110-129, HIGH RISK >130 LDL CHOLESTEROL REFERENCE RANGE FOR ADULTS: DESIRABLE <100 mg/dL, BORDERLINE 130-159, HIGH RISK >160 REFERENCE RANGES REVISED 10/13/15 ACCORDING TO NCEP GUIDELINES Performed By: #### 3 29 #### [facility] Unless Otherwise Noted [address] [address] / COLA #4724/CLIA # [id number] Triglyceride mass conc 232 mg/dL High <150 En [facility] Comment on above: Performed By: #### 3 29 #### [facility] Unless Otherwise Noted [address] [place] [address] / COLA #4724/CLIA # [id number] VLDL-CHOL, CALCULATED 46 mg/dL High <30 End [facility] Comment on above: Performed By: #### 3 29 #### [facility] [place] Unless Otherwise Noted [address] [facility] [address] [place] [address] / COLA #8724/CLIA # [id number] PTH, Intacton 03-07-2018 PTH, Intact 21.59 pg/mL Normal 15.0-65.0 [facility] Comment on above: Result Comment: SAMP LES FROM PATIENTS ROUTINELY RECEIVING HIGH DOSE BIOTIN THERAPY MAY SHOW FALSELY DEPRESSED RESULTS. ADDITIONAL INFORMATION MAY BE REQUIRED FOR DIAGNOSIS. Performed By: #### R ENP, URTPRT, MG, UAMIC, URI ####[address] [place] [address] #### CBC, PTHNCA, VD25 ####[facility] [address] [place], [place] [id number] Vitamin D 25 OHon 03-07-2018 Vitamin D 25 [place] 25.9 ng/mL Low 30.0-100.0 [facility] Comment on above: Result Comment: Refe rence Range:Vitamin D status Range Deficiency <20 ng/mL Mild Deficiency 20-30 ng/mL Sufficiency 30-100 ng/mL Toxicity >100 ng/mL Performed By: #### R ENP, URTPRT, MG, UAMIC, URI ####[address] [place] [address] #### CBC, PTHNCA, VD25 ####[facility] [address] [place], [place] [id number] CBCon 03-06-2018 Erythrocyte distribution width Auto Ratio (RBC) 14.9 % High 11.8-14.4 [facility] Comment on above: Performed By: #### U RI, UAMIC, URCRE, RENP, MG, CBC ####[address] [place] [address] #### VD25, PTHNCA ####[address] [address] Hematocrit Auto Volume Fraction (Bld) 43.7 % Normal 36.3-47.1 [facility] Comment on above: Performed By: #### U RI, UAMIC, URCRE, RENP, MG, CBC ####[address] [place] [address] #### VD25, PTHNCA ####[address] [address] Hemoglobin mass conc (Bld) 13.5 g/dL Normal 11.9-15.1 [facility] Comment on above: Performed By: #### U RI, UAMIC, URCRE, RENP, MG, CBC ####[address] [place] [address] #### VD25, PTHNCA ####[address] [address] MCH Auto Entitic mass (RBC) 27.2 pg Normal 25.2-33.5 [facility] Comment on above: Performed By: #### U RI, UAMIC, URCRE, RENP, MG, CBC ####[address] [place] [address] #### VD25, PTHNCA ####[address] [address] MCHC Auto mass conc (RBC) 30.9 g/dL Normal 28.4-34.8 [facility] Comment on above: Performed By: #### U RI, UAMIC, URCRE, RENP, MG, CBC ####[address] [place] [address] #### VD25, PTHNCA ####[address] [address] MCV Auto Entitic volume (RBC) 87.9 fL Normal 82.6-102.9 [facility] Comment on above: Performed By: #### U RI, UAMIC, URCRE, RENP, MG, CBC ####[address] [place] [id number] #### VD25, PTHNCA ####[address] [address] NRBC Automated 0.0 per 100 WBC Normal 0.0 [facility] Comment on above: Performed By: #### U RI, UAMIC, URCRE, RENP, MG, CBC ####[address] [place] [address] #### VD25, PTHNCA ####[address] [address] Platelet mean volume Auto Entitic volume (Bld) 10.1 fL Normal 8.1-13.5 [facility] Comment on above: Performed By: #### U RI, UAMIC, URCRE, RENP, MG, CBC ####[address] [place] [address] #### VD25, PTHNCA ####[address] [address] Platelets Auto #/vol (Bld) 431 10*3/uL Normal 138-453 [facility] Comment on above: Performed By: #### U RI, UAMIC, URCRE, RENP, MG, CBC ####[address] [place] [address] #### VD25, PTHNCA ####[address] [address] RBC Auto #/vol (Bld) 4.97 10*6/uL Normal 3.95-5.11 [facility] Comment on above: Performed By: #### U RI, UAMIC, URCRE, RENP, MG, CBC ####[address] [place] [address] #### VD25, PTHNCA ####[address] [address] WBC Auto #/vol (Bld) 10.2 10*3/uL Normal 3.5-11.3 [facility] Comment on above: Performed By: #### U RI, UAMIC, URCRE, RENP, MG, CBC ####[address] [place] [address] #### VD25, PTHNCA ####[address] [address] Creatinine,Random Uron 03-06 Creatinine mass conc 37.0 mg/dL Normal 28.0-217.0 [facility] Comment on above: Performed By: #### R ENP, URTPRT, MG, UAMIC, URI ####[address] [place] [address] #### CBC, PTHNCA, VD25 ####[address] [address] Creatinine mass conc 36.3 mg/dL Normal 28.0-217.0 [facility] Comment on above: Performed By: #### U RI, UAMIC, URCRE, RENP, MG, CBC ####[address] [place] [address] #### VD25, PTHNCA ####[address] [address] Magnesiumon 03-06-2018 Magnesium mass conc 2.2 mg/dL Normal 1.6-2.6 [facility] Comment on above: Performed By: #### R ENP, URTPRT, MG, UAMIC, URI ####[address] [place] [address] #### CBC, PTHNCA, VD25 ####[place] [place], [place] [address]38[address] Renal Function Panelon 03-06 (cont.) Normal [facility] Comment on above: Result Comment: Aver age GFR for 60-69 years old: 85 mL/min/1.73sq mChronic Kidney Disease: <60 mL/min/1.73sq mKidney failure: <15 mL/min/1.73sq meGFR calculated using average adult body mass. Additional eGFR calculator available at:http://[email or web address]/multiple_crcl_2011.htm Performed By: #### R ENP, URTPRT, MG, UAMIC, URI ####[address] [place] [address] #### CBC, PTHNCA, VD25 ####[address] [place], [place] [address] Albumin mass conc 4.0 g/dL Normal 3.5-5.2 [facility] Comment on above: Performed By: #### R ENP, URTPRT, MG, UAMIC, URI ####[address] [place] [address] #### CBC, PTHNCA, VD25 ####[address] [place] [address] Anion gap 3 molar conc 12 mmol/L Normal 9-17 [facility] Comment on above: Performed By: #### R ENP, URTPRT, MG, UAMIC, URI ####[address] [place] [address] #### CBC, PTHNCA, VD25 ####[facility] [place] [address] BUN/CRE Ratio 18 Normal 9-20 [facility] Comment on above: Performed By: #### R ENP, URTPRT, MG, UAMIC, URI ####[address] [place] [address] #### CBC, PTHNCA, VD25 ####[address] [address] Calcium mass conc 9.3 mg/dL Normal 8.6-10.4 [facility] Comment on above: Performed By: #### R ENP, URTPRT, MG, UAMIC, URI ####[address] [place] [address] #### CBC, PTHNCA, VD25 ####[address] [address] Chloride molar conc 104 mmol/L Normal 98-107 [facility] Comment on above: Performed By: #### R ENP, URTPRT, MG, UAMIC, URI ####[address] [place] [address] #### CBC, PTHNCA, VD25 ####[address] [place] [address] CO2 molar conc 24 mmol/L Normal 20-31 [facility] Comment on above: Performed By: #### R ENP, URTPRT, MG, UAMIC, URI ####[address] [place] [address] #### CBC, PTHNCA, VD25 ####[address] [place] [address] Creatinine mass conc 1.47 mg/dL High 0.50-0.90 [facility] Comment on above: Performed By: #### R ENP, URTPRT, MG, UAMIC, URI ####[address] [place] [address] #### CBC, PTHNCA, VD25 ####[address] [address] GFR, Amer 43 mL/min Low >[address] [facility] Comment on above: Performed By: #### R ENP, URTPRT, MG, UAMIC, URI ####[address] [place] [address] #### CBC, PTHNCA, VD25 ####[address] [address] GFR,non Amer 36 mL/min Low >60 [facility] Comment on above: Performed By: #### R ENP, URTPRT, MG, UAMIC, URI ####[address] [place] [address] #### CBC, PTHNCA, VD25 ####[address] [address] Glucose mass conc 63 mg/dL Low 70-99 [facility] Comment on above: Performed By: #### R ENP, URTPRT, MG, UAMIC, URI ####[address] [place] [address] #### CBC, PTHNCA, VD25 ####[address] [address] Phosphorus, Inorg. 3.5 mg/dL Normal 2.6-4.5 [facility] Comment on above: Performed By: #### R ENP, URTPRT, MG, UAMIC, URI ####[address] [place], [place] [address] #### CBC, PTHNCA, VD25 ####[address] [place] [address] Potassium molar conc 4.0 mmol/L Normal 3.7-5.3 [facility] Comment on above: Performed By: #### R ENP, URTPRT, MG, UAMIC, URI ####[address] [place] [address] #### CBC, PTHNCA, VD25 ####[address] [address] Sodium molar conc 140 mmol/L Normal 135-144 [facility] Comment on above: Performed By: #### R ENP, URTPRT, MG, UAMIC, URI ####[address] [place], [place] [address] #### CBC, PTHNCA, VD25 ####[address] [address] Staging: Normal [facility] Comment on above: Result Comment: Stag e 1: Some kidney damage normal GFRStage 2: Mild kidney damage GFR 60-89Stage 3: Moderate kidney damage GFR 30-59Stage 4: Severe kidney damage GFR 15-29Stage 5: Severe kidney damage GFR <15ESRD - chronic treatment by dialysis or transplant Performed By: #### R ENP, URTPRT, MG, UAMIC, URI ####[address] [place], [place] [address]83 #### CBC, PTHNCA, VD25 ####[address] [address] Urea nitrogen mass conc 27 mg/dL High 8-23 [facility] Comment on above: Performed By: #### R ENP, URTPRT, MG, UAMIC, URI ####[address] [place] [address]383 #### CBC, PTHNCA, VD25 ####[address] [address] Uric Acidon 03-06-2018 Urate mass conc 3.7 mg/dL Normal 2.4-5.7 [facility] Comment on above: Performed By: #### R ENP, URTPRT, MG, UAMIC, URI ####[address] [place] [address] #### CBC, PTHNCA, VD25 ####[address] [address] Urinalysis w/ Microon 2017 ----- Normal [facility] Comment on above: Performed By: #### R ENP, URTPRT, MG, UAMIC, URI ####[address] [place] [address] #### CBC, PTHNCA, VD25 ####[address] [address] Acetoacetic Acid,Ur Negative Normal NEG [facility] Comment on above: Performed By: #### R ENP, URTPRT, MG, UAMIC, URI ####[address] , [facility] #### CBC, PTHNCA, VD25 ####[address] [address] Bacteria TRACE Abnormal NONE [facility] Comment on above: Performed By: #### R ENP, URTPRT, MG, UAMIC, URI ####[address] [place] [address]383 #### CBC, PTHNCA, VD25 ####[address] [address] Bilirubin, SemiQt,Ur Negative Normal NEG [facility] Comment on above: Performed By: #### R ENP, URTPRT, MG, UAMIC, URI ####[address] [place] [address] #### CBC, PTHNCA, VD25 ####[address] [address] Color YELLOW Normal YEL [facility] Comment on above: Performed By: #### R ENP, URTPRT, MG, UAMIC, URI ####[address] [place] [address] #### CBC, PTHNCA, VD25 ####[address] [address] Epithelial cells 0 TO 2 Normal 0-[address] [facility] Comment on above: Performed By: #### R ENP, URTPRT, MG, UAMIC, URI ####[address] [place] [address] #### CBC, PTHNCA, VD25 ####[address] [address] Glucose,Semi-qnt,Ur Negative Normal NEG [facility] Comment on above: Performed By: #### R ENP, URTPRT, MG, UAMIC, URI ####[address] [place] [address] #### CBC, PTHNCA, VD25 ####[address] [address] Hemoglobin, Ur Negative Normal NEG [facility] Comment on above: Performed By: #### R ENP, URTPRT, MG, UAMIC, URI ####[address] [place] [address] #### CBC, PTHNCA, VD25 ####[address] [address] Leuckocyte Esterase SMALL Abnormal NEG [facility] Comment on above: Performed By: #### R ENP, URTPRT, MG, UAMIC, URI ####[address] [place] [address] #### CBC, PTHNCA, VD25 ####[address] [address] Mucus Strands TRACE Abnormal NONE [facility] Comment on above: Performed By: #### R ENP, URTPRT, MG, UAMIC, URI ####[address] [place] [address] #### CBC, PTHNCA, VD25 ####[address] [address] Nitrite,Ur Negative Normal NEG [facility] Comment on above: Performed By: #### R ENP, URTPRT, MG, UAMIC, URI ####[address] [place] [address] #### CBC, PTHNCA, VD25 ####[address] [address] PH,Ur 5.5 Normal 5.0-9.0 [facility] Comment on above: Performed By: #### R ENP, URTPRT, MG, UAMIC, URI ####[address] [place] [address] #### CBC, PTHNCA, VD25 ####[address] [address] Protein mass conc Negative Normal NEG [facility] Comment on above: Performed By: #### R ENP, URTPRT, MG, UAMIC, URI ####[address] [place] [address] #### CBC, PTHNCA, VD25 ####[address] [address] RBC Test strip #/vol (U) 0 TO 2 Normal 0-2 [facility] Comment on above: Performed By: #### R ENP, URTPRT, MG, UAMIC, URI ####[address] [place] [address] #### CBC, PTHNCA, VD25 ####[address] [address] Spec. [place],Ur 1.015 Normal 1.010-1.020 [facility] Comment on above: Performed By: #### R ENP, URTPRT, MG, UAMIC, URI ####[address] [place] [address] #### CBC, PTHNCA, VD25 ####[address] [address] Turbidity CLEAR Normal CLEAR [facility] Comment on above: Performed By: #### R ENP, URTPRT, MG, UAMIC, URI ####[address] [place] [address] #### CBC, PTHNCA, VD25 ####[address] [address] Urine WBC's 0 TO 2 Normal 0-5 [facility] Comment on above: Performed By: #### R ENP, URTPRT, MG, UAMIC, URI ####[address] [place] [address]383 #### CBC, PTHNCA, VD25 ####[address] [address] Urobilinogen,Ur Normal Normal NORM [facility] Comment on above: Performed By: #### R ENP, URTPRT, MG, UAMIC, URI ####[address] [place] [address] #### CBC, PTHNCA, VD25 ####[address] [place] [address] Amorphous Sediment NOT REPORTED Normal NONE [facility] Comment on above: Performed By: #### R ENP, URTPRT, MG, UAMIC, URI ####[address] [place] [address] #### CBC, PTHNCA, VD25 ####[address] [address] Casts NOT REPORTED Normal [facility] Comment on above: Performed By: #### R ENP, URTPRT, MG, UAMIC, URI ####[address] [place] [address] #### CBC, PTHNCA, VD25 ####[address] [address] Comment NOT REPORTED Normal [facility] Comment on above: Performed By: #### R ENP, URTPRT, MG, UAMIC, URI ####[address] [place] [address] #### CBC, PTHNCA, VD25 ####[address] [place] [address] Crystals NOT REPORTED Normal NONE [facility] Comment on above: Performed By: #### R ENP, URTPRT, MG, UAMIC, URI ####[address] [place] [address] #### CBC, PTHNCA, VD25 ####[address] [address] Epithelial, Renal NOT REPORTED Normal 0 [facility] Comment on above: Performed By: #### R ENP, URTPRT, MG, UAMIC, URI ####[address] [place] [address] #### CBC, PTHNCA, VD25 ####[address] [address] Other Observations NOT REPORTED Normal NREQ [facility] Comment on above: Performed By: #### R ENP, URTPRT, MG, UAMIC, URI ####[address] [place] [address] #### CBC, PTHNCA, VD25 ####[address] [address] Trichomonas NOT REPORTED Normal NONE [facility] Comment on above: Performed By: #### R ENP, URTPRT, MG, UAMIC, URI ####[address] [place] [address] #### CBC, PTHNCA, VD25 ####[address] [address] Yeast NOT REPORTED Normal NONE [facility] Comment on above: Performed By: #### R ENP, URTPRT, MG, UAMIC, URI ####[address] [place] [address] #### CBC, PTHNCA, VD25 ####[address] [address] PTH, Intacton 09-20-2017 PTH, Intact 17.31 pg/mL Normal 15.0-65.0 [facility] Comment on above: Result Comment: SAMP LES FROM PATIENTS ROUTINELY RECEIVING HIGH DOSE BIOTIN THERAPY MAY SHOW FALSELY DEPRESSED RESULTS. ADDITIONAL INFORMATION MAY BE REQUIRED FOR DIAGNOSIS.Performed at [address] [address] Performed By: #### R ENP, URTPRT, MG, UAMIC, URI ####[address] [place], [place] [address] #### CBC, PTHNCA, VD25 ####[address] [address] Vitamin D 25 OHon 09-20-2017 Vitamin D 25 OH 21.8 ng/mL Low 30.0-100.0 [facility] Comment on above: Result Comment: Refe rence Range:Vitamin D status Range Deficiency <20 ng/mL Mild Deficiency 20-30 ng/mL Sufficiency 30-100 ng/mL Toxicity >100 ng/mLPerformed at [address] [address] Performed By: #### R ENP, URTPRT, MG, UAMIC, URI ####[address] [place] [address] #### CBC, PTHNCA, VD25 ####[address] [address] [facility] Erythrocyte distribution width Auto Ratio (RBC) 15.8 % High 11.8-14.4 [facility] Comment on above: Performed By: #### R ENP, URTPRT, MG, UAMIC, URI ####[address] [place] [address] #### CBC, PTHNCA, VD25 ####[address] [address] Hematocrit Auto Volume Fraction (Bld) 40.2 % Normal 36.3-47.1 [facility] Comment on above: Performed By: #### R ENP, URTPRT, MG, UAMIC, URI ####[address] [place] [address]383 #### CBC, PTHNCA, VD25 ####[address] [id number] Hemoglobin mass conc (Bld) 12.5 g/dL Normal 11.9-15.1 [facility] Comment on above: Performed By: #### R ENP, URTPRT, MG, UAMIC, URI ####[address] [place] [address] #### CBC, PTHNCA, VD25 ####[address] [address] MCH Auto Entitic mass (RBC) 27.7 pg Normal 25.2-33.5 [facility] Comment on above: Performed By: #### R ENP, URTPRT, MG, UAMIC, URI ####[address] [place] [address] #### CBC, PTHNCA, VD25 ####[address] [address] MCHC Auto mass conc (RBC) 31.1 g/dL Normal 28.4-34.8 [facility] Comment on above: Performed By: #### R ENP, URTPRT, MG, UAMIC, URI ####[address] [place] [address] #### CBC, PTHNCA, VD25 ####[address] [address] MCV Auto Entitic volume (RBC) 88.9 fL Normal 82.6-102.9 [facility] Comment on above: Performed By: #### R ENP, URTPRT, MG, UAMIC, URI ####[address] [place] [address]383 #### CBC, PTHNCA, VD25 ####[address] [address] NRBC Automated 0.0 per 100 WBC Normal 0.0 [facility] Comment on above: Result Comment: Perf ormed at [address] [address] Performed By: #### R ENP, URTPRT, MG, UAMIC, URI ####[address] [place] [address]383 #### CBC, PTHNCA, VD25 ####[address] [address] Platelet mean volume Auto Entitic volume (Bld) 10.0 fL Normal 8.1-13.5 [facility] Comment on above: Performed By: #### R ENP, URTPRT, MG, UAMIC, URI ####[address] [place] [address]383 #### CBC, PTHNCA, VD25 ####[address] [address] Platelets Auto #/vol (Bld) 392 10*3/uL Normal 138-453 [facility] Comment on above: Performed By: #### R ENP, URTPRT, MG, UAMIC, URI ####[address] [place] [address] #### CBC, PTHNCA, VD25 ####[address] [address] RBC Auto #/vol (Bld) 4.52 10*6/uL Normal 3.95-5.11 [facility] Comment on above: Performed By: #### R ENP, URTPRT, MG, UAMIC, URI ####[address] [place] [address] #### CBC, PTHNCA, VD25 ####[address] [address] WBC Auto #/vol (Bld) 10.3 10*3/uL Normal 3.5-11.3 [facility] Comment on above: Performed By: #### R ENP, URTPRT, MG, UAMIC, URI ####[address] [place] [address] #### CBC, PTHNCA, VD25 ####[address] [address] Magnesiumon 09-19-2017 Magnesium mass conc 2.0 mg/dL Normal 1.6-2.6 [facility] Comment on above: Result Comment: Perf ormed at [address] [place] [address] Performed By: #### R ENP, URTPRT, MG, UAMIC, URI ####[address] [place] [address] #### CBC, PTHNCA, VD25 ####[address] [address] Protein,Tot,[place] U[place] 2017 Creatinine mass conc 142.4 mg/dL Normal 28.0-217.0 [facility] Comment on above: Performed By: #### R ENP, URTPRT, MG, UAMIC, URI ####[address] [place], [place] [address] #### CBC, PTHNCA, VD25 ####[address] [address] Protein mass conc 7 mg/dL Normal [facility] Comment on above: Result Comment: No n ormal range established. Performed By: #### R ENP, URTPRT, MG, UAMIC, URI ####[address] [place] [address] #### CBC, PTHNCA, VD25 ####[address] [address] TP/Cre Ratio 0.05 Normal 0.00-0.20 [facility] Comment on above: Result Comment: Perf ormed at [address] [place] [address] [phone] Performed By: #### R ENP, URTPRT, MG, UAMIC, URI ####[address] [facility] #### CBC, PTHNCA, VD25 ####[address] [id number] Renal Function Panelon 09-19 (cont.) Normal [facility] Comment on above: Result Comment: Aver age GFR for 60-69 years old: 85 mL/min/1.73sq mChronic Kidney Disease: <60 mL/min/1.73sq mKidney failure: <15 mL/min/1.73sq meGFR calculated using average adult body mass. Additional eGFR calculator available at:http://[email or web address]/multiple_crcl_2012.htm Performed By: #### R ENP, URTPRT, MG, UAMIC, URI ####[address] [place] [id number] #### CBC, PTHNCA, VD25 ####[address] [place], [place] [address] Albumin mass conc 4.0 g/dL Normal 3.5-5.2 [facility] Comment on above: Performed By: #### R ENP, URTPRT, MG, UAMIC, URI ####[address] [place] [id number] #### CBC, PTHNCA, VD25 ####[address] [address] Anion gap 3 molar conc 11 mmol/L Normal 9-17 [facility] Comment on above: Performed By: #### R ENP, URTPRT, MG, UAMIC, URI ####[address] [place] [address] #### CBC, PTHNCA, VD25 ####[address] [address] BUN/CRE Ratio 25 High 9-20 [facility] Comment on above: Performed By: #### R ENP, URTPRT, MG, UAMIC, URI ####[address] [place] [address] #### CBC, PTHNCA, VD25 ####[address] [address] Calcium mass conc 9.3 mg/dL Normal 8.6-10.4 [facility] Comment on above: Performed By: #### R ENP, URTPRT, MG, UAMIC, URI ####[address] [place] [address] #### CBC, PTHNCA, VD25 ####[address] [address] Chloride molar conc 102 mmol/L Normal 98-107 [facility] Comment on above: Performed By: #### R ENP, URTPRT, MG, UAMIC, URI ####[address] [place] [address] #### CBC, PTHNCA, VD25 ####[address] [address] CO2 molar conc 27 mmol/L Normal 20-31 [facility] Comment on above: Performed By: #### R ENP, URTPRT, MG, UAMIC, URI ####[address] [place] [address] #### CBC, PTHNCA, VD25 ####[address] [address] Creatinine mass conc 1.00 mg/dL High 0.50-0.90 [facility] Comment on above: Performed By: #### R ENP, URTPRT, MG, UAMIC, URI ####[address] [place] [address] #### CBC, PTHNCA, VD25 ####[address] [address] GFR, Amer >60 Normal >[address] [facility] Comment on above: Performed By: #### R ENP, URTPRT, MG, UAMIC, URI ####[address] [place] [address] #### CBC, PTHNCA, VD25 ####[address] [address] GFR,non Amer 55 mL/min Low >60 [facility] Comment on above: Performed By: #### R ENP, URTPRT, MG, UAMIC, URI ####[address] [place] [address] #### CBC, PTHNCA, VD25 ####[address] [address] Glucose mass conc 188 mg/dL High 70-99 [facility] Comment on above: Performed By: #### R ENP, URTPRT, MG, UAMIC, URI ####[address] [place] [address] #### CBC, PTHNCA, VD25 ####[address] [address] Phosphorus, Inorg. 3.3 mg/dL Normal 2.6-4.5 [facility] Comment on above: Performed By: #### R ENP, URTPRT, MG, UAMIC, URI ####[address] [place], [place] [address]83 #### CBC, PTHNCA, VD25 ####[address] [address] Potassium molar conc 3.8 mmol/L Normal 3.7-5.3 [facility] Comment on above: Performed By: #### R ENP, URTPRT, MG, UAMIC, URI ####[address] [place], [place] 4[address]383 #### CBC, PTHNCA, VD25 ####[address] [address] Sodium molar conc 140 mmol/L Normal 135-144 [facility] Comment on above: Performed By: #### R ENP, URTPRT, MG, UAMIC, URI ####[address] [place], [place] [address] #### CBC, PTHNCA, VD25 ####[address] [address] Staging: Normal [facility] Comment on above: Result Comment: Stag e 1: Some kidney damage normal GFRStage 2: Mild kidney damage GFR 60-89Stage 3: Moderate kidney damage GFR 30-59Stage 4: Severe kidney damage GFR 15-29Stage 5: Severe kidney damage GFR <15ESRD - chronic treatment by dialysis or transplantPerformed at [address] [place] [address] [phone] Performed By: #### R ENP, URTPRT, MG, UAMIC, URI ####[address] [place], [place] [address]83 #### CBC, PTHNCA, VD25 ####[address] [id number] Urea nitrogen mass conc 25 mg/dL High 8-23 [facility] Comment on above: Performed By: #### R ENP, URTPRT, MG, UAMIC, URI ####[address] [place], [place] [address] #### CBC, PTHNCA, VD25 ####[address] [address] Uric Acidon 09-19-2017 Urate mass conc 4.9 mg/dL Normal 2.4-5.7 [facility] Comment on above: Result Comment: Perf ormed at [address] [place] [address] [phone] Performed By: #### R ENP, URTPRT, MG, UAMIC, URI ####[address] [place], [place] [address] #### CBC, PTHNCA, VD25 ####[address] [address] Urinalysis w/ Microon 2017 ----- Normal [facility] Comment on above: Performed By: #### R ENP, URTPRT, MG, UAMIC, URI ####[address] [place], [place] [address] #### CBC, PTHNCA, VD25 ####[address] [address] Acetoacetic Acid,Ur Negative Normal NEG [facility] Comment on above: Performed By: #### R ENP, URTPRT, MG, UAMIC, URI ####[address] [place] [address] #### CBC, PTHNCA, VD25 ####[address] [address] Bacteria TRACE Abnormal NONE [facility] Comment on above: Performed By: #### R ENP, URTPRT, MG, UAMIC, URI ####[address] [place] [address] #### CBC, PTHNCA, VD25 ####[address] [address] Bilirubin, SemiQt,Ur Negative Normal NEG [facility] Comment on above: Performed By: #### R ENP, URTPRT, MG, UAMIC, URI ####[address] [place] [address] #### CBC, PTHNCA, VD25 ####[address] [address] Color YELLOW Normal YEL [facility] Comment on above: Performed By: #### R ENP, URTPRT, MG, UAMIC, URI ####[address] [place] [address] #### CBC, PTHNCA, VD25 ####[address] [address] Epithelial cells 0 TO 2 Normal 0-[address] [facility] Comment on above: Performed By: #### R ENP, URTPRT, MG, UAMIC, URI ####[address] [place] [address] #### CBC, PTHNCA, VD25 ####[address] [address] Glucose,Semi-qnt,Ur Negative Normal NEG [facility] Comment on above: Performed By: #### R ENP, URTPRT, MG, UAMIC, URI ####[address] [place] [address] #### CBC, PTHNCA, VD25 ####[address] [address] Hemoglobin, Ur Negative Normal NEG [facility] Comment on above: Performed By: #### R ENP, URTPRT, MG, UAMIC, URI ####[address] [place] [address] #### CBC, PTHNCA, VD25 ####[address] [address] Leuckocyte Esterase Negative Normal NEG [facility] Comment on above: Performed By: #### R ENP, URTPRT, MG, UAMIC, URI ####[address] [place] [address] #### CBC, PTHNCA, VD25 ####[address] [address] Mucus Strands TRACE Abnormal NONE [facility] Comment on above: Result Comment: Perf ormed at [address] [place] [address] Performed By: #### R ENP, URTPRT, MG, UAMIC, URI ####[address] [place] [address] #### CBC, PTHNCA, VD25 ####[address] [address] Nitrite,Ur Negative Normal NEG [facility] Comment on above: Performed By: #### R ENP, URTPRT, MG, UAMIC, URI ####[address] [place] [address] #### CBC, PTHNCA, VD25 ####[address] [address] PH,Ur 6.0 Normal 5.0-9.0 [facility] Comment on above: Performed By: #### R ENP, URTPRT, MG, UAMIC, URI ####[address] [place] [address] #### CBC, PTHNCA, VD25 ####[address] [address] Protein mass conc Negative Normal NEG [facility] Comment on above: Performed By: #### R ENP, URTPRT, MG, UAMIC, URI ####[address] [place] [address] #### CBC, PTHNCA, VD25 ####[address] [address] RBC Test strip #/vol (U) 0 TO 2 Normal 0-2 [facility] Comment on above: Performed By: #### R ENP, URTPRT, MG, UAMIC, URI ####[address] [place] [id number] #### CBC, PTHNCA, VD25 ####[address] [address] Spec. [place],Ur 1.025 High 1.010-1.020 [facility] Comment on above: Performed By: #### R ENP, URTPRT, MG, UAMIC, URI ####[address] [place] [address] #### CBC, PTHNCA, VD25 ####[address] [address] Turbidity CLEAR Normal CLEAR [facility] Comment on above: Performed By: #### R ENP, URTPRT, MG, UAMIC, URI ####[address] [place] [address] #### CBC, PTHNCA, VD25 ####[address] [address] Urine WBC's 0 TO 2 Normal 0-5 [facility] Comment on above: Performed By: #### R ENP, URTPRT, MG, UAMIC, URI ####[address] [place] [id number] #### CBC, PTHNCA, VD25 ####[address] [address] Urobilinogen,Ur Normal Normal NORM [facility] Comment on above: Performed By: #### R ENP, URTPRT, MG, UAMIC, URI ####[address] [place] [id number] #### CBC, PTHNCA, VD25 ####[address] [address] Amorphous Sediment NOT REPORTED Normal NONE [facility] Comment on above: Performed By: #### R ENP, URTPRT, MG, UAMIC, URI ####[address] [place] [address] #### CBC, PTHNCA, VD25 ####[address] [address] Casts NOT REPORTED Normal [facility] Comment on above: Performed By: #### R ENP, URTPRT, MG, UAMIC, URI ####[address] [place] [address] #### CBC, PTHNCA, VD25 ####[address] [address] Comment NOT REPORTED Normal [facility] Comment on above: Performed By: #### R ENP, URTPRT, MG, UAMIC, URI ####[address] [place] [address] #### CBC, PTHNCA, VD25 ####[address] [address] Crystals NOT REPORTED Normal NONE [facility] Comment on above: Performed By: #### R ENP, URTPRT, MG, UAMIC, URI ####[address] [place] [address] #### CBC, PTHNCA, VD25 ####[address] [address] Epithelial, Renal NOT REPORTED Normal 0 [facility] Comment on above: Performed By: #### R ENP, URTPRT, MG, UAMIC, URI ####[address] [place] [address] #### CBC, PTHNCA, VD25 ####[address] [address] Other Observations NOT REPORTED [facility] on above: Performed By: #### R ENP, URTPRT, MG, UAMIC, URI ####[address] [place] [address] #### CBC, PTHNCA, VD25 ####[address] [address] Trichomonas NOT REPORTED Normal NONE [facility] Comment on above: Performed By: #### R ENP, URTPRT, MG, UAMIC, URI ####[address] [place] [address] #### CBC, PTHNCA, VD25 ####[address] [id number] Yeast NOT REPORTED Normal NONE [facility] Comment on above: Performed By: #### R ENP, URTPRT, MG, UAMIC, URI ####[address] [place] [address] #### CBC, PTHNCA, VD25 ####[id number] [place], [place] [id number] Vital Signs Date Time Vital Sign Value Performing Clinician Facility 06-18-2024 11:34-0500 Body height 160.7 cm Rajesh Mercer MD Work Phone: [facility] 06-18-2024 11:34-0500 Body mass index (BMI) [Ratio] 48.33 kg/m2 Rajesh Mercer MD Work Phone: [facility] 06-18-2024 11:34-0500 Body temperature 98.71 [degF] Rajesh Mercer MD Work Phone: [facility] 06-18-2024 11:34-0500 Body weight 124.74 kg Rajesh Mercer MD Work Phone: [facility] 06-18-2024 11:34-0500 Diastolic blood pressure 76 mm[Hg] Rajesh Mercer MD Work Phone: [facility] 06-18-2024 11:34-0500 Heart rate 83 /min Rajesh Mrecer MD Work Phone: [facility] 06-18-2024 11:34-0500 SaO2% (BldA) [Mass fraction] 97 % Rajesh Mercer MD Work Phone: [facility] 06-18-2024 11:34-0500 Systolic blood pressure 128 mm[Hg] Rajesh Mercer MD Work Phone: [facility] 04-19-2024 15:50-0500 Body height 160.7 cm Rajesh Mercer MD Work Phone: [facility] 04-19-2024 15:50-0500 Body mass index (BMI) [Ratio] 48.86 kg/m2 Rajesh Mercer MD Work Phone: [facility] 04-19-2024 15:50-0500 Body weight 126.1 kg Rajesh Mercer MD Work Phone: [facility] 04-19-2024 15:50-0500 Diastolic blood pressure 70 mm[Hg] Rajesh Mercer MD Work Phone: [facility] 04-19-2024 15:50-0500 Heart rate 90 /min Rajesh Mercer MD Work Phone: [facility] 04-19-2024 15:50-0500 SaO2% (BldA) [Mass fraction] 96 % Rajesh Mercer MD Work Phone: [facility] 04-19-2024 15:50-0500 Systolic blood pressure 122 mm[Hg] Rajesh Mercer MD Work Phone: [facility] 02-26-2024 12:05-0400 Body mass index (BMI) [Ratio] 48.22 kg/m2 Gina Bustillo MD Work Phone: [facility] 02-26-2024 12:05-0400 Body weight 127.42 kg Gina Bustillo MD Work Phone: [facility] 02-26-2024 12:05-0400 Diastolic blood pressure 81 mm[Hg] Gina Bustillo MD Work Phone: [facility] 02-26-2024 12:05-0400 Heart rate 81 /min Gina Bustillo MD Work Phone: [facility] 02-26-2024 12:05-0400 Systolic blood pressure 118 mm[Hg] Gina Bustillo MD Work Phone: [facility] 01-16-2024 12:43-0400 Body height 160.7 cm Gina MCGREGOR Work Phone: [facility] 01-16-2024 12:43-0400 Body mass index (BMI) [Ratio] 50.47 kg/m2 Gina MCGREGOR Work Phone: [facility] 01-16-2024 12:43-0400 Body weight 130.27 kg Gina Hemmer PA Work Phone: [facility] 01-16-2024 12:43-0400 Diastolic blood pressure 76 mm[Hg] Gina Hemmer PA Work Phone: [facility] 01-16-2024 12:43-0400 Heart rate 89 /min Gina Hemmer PA Work Phone: [facility] 01-16-2024 12:43-0400 Respiratory rate 16 /min Gina Hemmer PA Work Phone: [facility] 01-16-2024 12:43-0400 SaO2% (BldA) [Mass fraction] 96 % Gina Hemmer PA Work Phone: [facility] 01-16-2024 12:43-0400 Systolic blood pressure 124 mm[Hg] Gina Hemmer PA Work Phone: [facility] 11-25-2023 11:52-0400 Body mass index (BMI) [Ratio] 49.56 kg/m2 Maggi Becky TECHNICAL ILLUSTRATIONS MAP INKER-AERONAUTICS TEACHER Work Phone: [facility] 11-25-2023 11:52-0400 Body weight 130.95 kg Maggi Becky TECHNICAL ILLUSTRATIONS MAP INKER-AERONAUTICS TEACHER Work Phone: [facility] 11-25-2023 11:52-0400 Diastolic blood pressure 72 mm[Hg] Maggi Becky TECHNICAL ILLUSTRATIONS MAP INKER-AERONAUTICS TEACHER Work Phone: [facility] 11-25-2023 11:52-0400 Heart rate 88 /min Maggi Becky TECHNICAL ILLUSTRATIONS MAP INKER-AERONAUTICS TEACHER Work Phone: [facility] 11-25-2023 11:52-0400 Systolic blood pressure 126 mm[Hg] Maggi Becky TECHNICAL ILLUSTRATIONS MAP INKER-AERONAUTICS TEACHER Work Phone: [facility] 11-13-2023 15:48-0400 Body height 163.83 cm II Rajesh Ruslan Work Phone: [facility] 11-13-2023 15:48-0400 Body mass index (BMI) [Ratio] 48.8 kg/m2 II Rajesh Mercer Work Phone: [facility] 11-13-2023 15:48-0400 Body temperature 97.3 [degF] II Rajesh Mercer Work Phone: [facility] 11-13-2023 15:48-0400 Body weight 131.08 kg II Rajesh Mercer Work Phone: [facility] 11-13-2023 15:48-0400 Diastolic blood pressure 78 mm[Hg] II Rajesh Mercer Work Phone: [facility] 11-13-2023 15:48-0400 Heart rate 88 /min II Rajesh Mercer Work Phone: [facility] 11-13-2023 15:48-0400 Respiratory rate 20 /min II Rajesh Mercer Work Phone: [facility] 11-13-2023 15:48-0400 SaO2% (BldA) [Mass fraction] 95 % II Rajesh Mercer Work Phone: [facility] 11-13-2023 15:48-0400 Systolic blood pressure 148 mm[Hg] II Rajesh Mercer Work Phone: [facility] 08-08-2023 13:25-0400 Body mass index (BMI) [Ratio] 49.88 kg/m2 Maggi Hughesy TECHNICAL ILLUSTRATIONS MAP INKER-AERONAUTICS TEACHER Work [facility]: [facility] 08-08-2023 13:25-0400 Body weight 131.81 kg Maggi Becky TECHNICAL ILLUSTRATIONS MAP INKER-AERONAUTICS TEACHER Work Phone: [facility] 08-08-2023 13:25-0400 Diastolic blood pressure 82 mm[Hg] Maggimarga Hughesy TECHNICAL ILLUSTRATIONS MAP INKER-AERONAUTICS TEACHER Work Phone: [facility] [employer] [facility] 08-08-2023 13:25-0400 Heart rate 82 /min Maggi Becky TECHNICAL ILLUSTRATIONS MAP INKER-AERONAUTICS TEACHER Work Phone: [facility] 08-08-2023 13:25-0400 Systolic blood pressure 142 mm[Hg] Maggi Peralta APRN-AERONAUTICS TEACHER Work Phone: [facility] 07-21-2023 15:56-0400 Body height 163.83 cm II Rajesh Mercer Work Phone: [facility] 07-21-2023 15:56-0400 Body mass index (BMI) [Ratio] 48.9 kg/m2 II Rajesh Mercer Work Phone: [facility] 07-21-2023 15:56-0400 Body temperature 97.5 [degF] II Rajesh Mercer Work Phone: [facility] 07-21-2023 15:56-0400 Body weight 131.25 kg II Rajesh Mercer Work Phone: [facility] 07-21-2023 15:56-0400 Diastolic blood pressure 78 mm[Hg] II Rajesh Mercer Work Phone: [facility] 07-21-2023 15:56-0400 Heart rate 81 /min II Rajesh Mercer Work Phone: [facility] 07-21-2023 15:56-0400 Respiratory rate 20 /min II Rajehs Mercer Work Phone: [facility] 07-21-2023 15:56-0400 SaO2% (BldA) [Mass fraction] 94 % II Rajesh Mercer Work Phone: [facility] 07-21-2023 15:56-0400 Systolic blood pressure 142 mm[Hg] II Rajesh Mercer Work Phone: [facility] 03-04-2023 15:15-0400 Body height 163.83 cm Qamar Rowan Other [employer] Other 03-04-2023 15:15-0400 Body mass index (BMI) [Ratio] 49.34 kg/m2 Qamar Harpal Other [employer] Other 03-04-2023 15:15-0400 Body temperature 98 [degF] Mehraner Harpal Other [employer] Other 03-04-2023 15:15-0400 Body weight 132.45 kg Christchazer Harpal Other [employer] Other 03-04-2023 15:15-0400 Diastolic blood pressure 78 mm[Hg] Mehraner Harpal Other [employer] Other 03-04-2023 15:15-0400 Respiratory rate 20 /min Qamar Foremandano Other [employer] Other 03-04-2023 15:15-0400 SaO2% (BldA) [Mass fraction] 96 % Qamar Foremandano Other [employer] Other 03-04-2023 15:15-0400 Systolic blood pressure 148 mm[Hg] Qamar Foremandano Other [employer] Other 11-27-2022 16:00-0400 Body height 163.83 cm Dilan Sergio Other [employer] Other 11-27-2022 16:00-0400 Body mass index (BMI) [Ratio] 49.58 kg/m2 Dilan Sergio Other [employer] Other 11-27-2022 16:00-0400 Body temperature 97.2 [degF] Dilan Sergio Other [employer] Other 11-27-2022 16:00-0400 Body weight 133.09 kg Dilan Sergio Other [employer] Other 11-27-2022 16:00-0400 Diastolic blood pressure 46 mm[Hg] Dilan Sergio Other [employer] Other 11-27-2022 16:00-0400 Respiratory rate 20 /min Dilan Sergio Other [employer] Other 11-27-2022 16:00-0400 SaO2% (BldA) [Mass fraction] 95 % Dilan Sergio Other [employer] Other 11-27-2022 16:00-0400 Systolic blood pressure 149 mm[Hg] Dilan Sergio Other [employer] Other 09-03-2022 16:15-0400 Body height 163.83 cm Qamar Rowan Other [employer] Other 09-03-2022 16:15-0400 Body mass index (BMI) [Ratio] 49 kg/m2 Qamar Rowan Other [employer] Other 09-03-2022 16:15-0400 Body temperature 97.2 [degF] Qamar Rowan Other [employer] Other 09-03-2022 16:15-0400 Body weight 131.54 kg Qamar Pandano Other [employer] Other 09-03-2022 16:15-0400 Diastolic blood pressure 73 mm[Hg] Qamar Rowan Other [employer] Other 09-03-2022 16:15-0400 Respiratory rate 20 /min Qamar Rowan Other [employer] Other 09-03-2022 16:15-0400 SaO2% (BldA) [Mass fraction] 96 % Qamar Rowan Other [employer] Other 09-03-2022 16:15-0400 Systolic blood pressure 123 mm[Hg] Qamar Rowan Other [employer] Other 08-29-2022 14:40-0400 Body height 163.83 cm Dilan Sergio Other [employer] Other 08-29-2022 14:40-0400 Body mass index (BMI) [Ratio] 50.22 kg/m2 Dilan Sergio Other [employer] Other 08-29-2022 14:40-0400 Body temperature 97.6 [degF] Dilan Sergio Other [employer] Other 08-29-2022 14:40-0400 Body weight 134.81 kg Dilan Sergio Other [employer] Other 08-29-2022 14:40-0400 Diastolic blood pressure 72 mm[Hg] Dilan Sergio Other [employer] Other 08-29-2022 14:40-0400 Respiratory rate 20 /min Dilan Sergio Other [employer] Other 08-29-2022 14:40-0400 SaO2% (BldA) [Mass fraction] 91 % Dilan Sergio Other [employer] Other 08-29-2022 14:40-0400 Systolic blood pressure 140 mm[Hg] Dilan Sergio Other [employer] Other 07-15-2022 16:00-0400 Body height 163.83 cm Dilan Sergio Other [employer] Other 07-15-2022 16:00-0400 Body mass index (BMI) [Ratio] 49.82 kg/m2 Dilan Sergio Other [employer] Other 07-15-2022 16:00-0400 Body temperature 97.3 [degF] Dilan Sergio Other [employer] Other 07-15-2022 16:00-0400 Body weight 133.72 kg Dilan Sergio Other [employer] Other 07-15-2022 16:00-0400 Diastolic blood pressure 60 mm[Hg] Dilan Sergio Other [employer] Other 07-15-2022 16:00-0400 Respiratory rate 20 /min Dilan Sergio Other [employer] Other 07-15-2022 16:00-0400 SaO2% (BldA) [Mass fraction] 96 % Dilan Sergio Other [employer] Other 07-15-2022 16:00-0400 Systolic blood pressure 130 mm[Hg] Dilan Sergio Other [employer] Other 03-04-2022 14:30-0400 Body height 163.83 cm Qamar Foremandano Other [employer] Other 03-04-2022 14:30-0400 Body mass index (BMI) [Ratio] 49.68 kg/m2 Christchazer Harpal Other [employer] Other 03-04-2022 14:30-0400 Body temperature 97.3 [degF] Mehraner Harpal Other [employer] Other 03-04-2022 14:30-0400 Body weight 133.36 kg Mehraner Harpal Other [employer] Other 03-04-2022 14:30-0400 Diastolic blood pressure 84 mm[Hg] Hectorchazer Harpal Other [employer] Other 03-04-2022 14:30-0400 Respiratory rate 20 /min Mehraner Harpal Other [employer] Other 03-04-2022 14:30-0400 SaO2% (BldA) [Mass fraction] 96 % Mehraner Harpal Other [employer] Other 03-04-2022 14:30-0400 Systolic blood pressure 156 mm[Hg] Hectorchazer Harpal Other [employer] Other 02-21-2022 16:20-0400 Body height 163.83 cm Dilan Sergio Other [employer] Other 02-21-2022 16:20-0400 Body mass index (BMI) [Ratio] 51.07 kg/m2 Dilan Sergio Other [employer] Other 02-21-2022 16:20-0400 Body temperature 97.1 [degF] Dilan Sergio Other [employer] Other 02-21-2022 16:20-0400 Body weight 137.08 kg Dilan Sergio Other [employer] Other 02-21-2022 16:20-0400 Diastolic blood pressure 81 mm[Hg] Dilan Sergio Other [employer] Other 02-21-2022 16:20-0400 Respiratory rate 20 /min Dilan Sergio Other [employer] Other 02-21-2022 16:20-0400 SaO2% (BldA) [Mass fraction] 96 % Dilan Sergio Other [employer] Other 02-21-2022 16:20-0400 Systolic blood pressure 138 mm[Hg] Dilan Sergio Other [employer] Other 10-23-2021 17:20-0400 Body height 163.83 cm Dilan Sergio Other [employer] Other 10-23-2021 17:20-0400 Body mass index (BMI) [Ratio] 50.12 kg/m2 Dilan Sergio Other [employer] Other 10-23-2021 17:20-0400 Body temperature 97.2 [degF] Dilan Sergio Other [employer] Other 10-23-2021 17:20-0400 Body weight 134.54 kg Dilan Sergio Other [employer] Other 10-23-2021 17:20-0400 Diastolic blood pressure 84 mm[Hg] Dilan Sergio Other [employer] Other 10-23-2021 17:20-0400 Respiratory rate 20 /min Dilan Sergio Other [employer] Other 10-23-2021 17:20-0400 SaO2% (BldA) [Mass fraction] 94 % Dilan Sergio Other [employer] Other 10-23-2021 17:20-0400 Systolic blood pressure 171 mm[Hg] Dilan Sergio Other [employer] Other 10-02-2021 15:15-0400 Body height 163.83 cm Qamar Rowan Other [employer] Other 10-02-2021 15:15-0400 Body mass index (BMI) [Ratio] 49.51 kg/m2 Qamar Rowan Other [employer] Other 10-02-2021 15:15-0400 Body temperature 96.5 [degF] Qamar Foremandano Other [employer] Other 10-02-2021 15:15-0400 Body weight 132.9 kg Qamar Pandano Other [employer] Other 10-02-2021 15:15-0400 Diastolic blood pressure 89 mm[Hg] Qamar Rowan Other [employer] Other 10-02-2021 15:15-0400 Respiratory rate 20 /min Qamar Rowan Other [employer] Other 10-02-2021 15:15-0400 SaO2% (BldA) [Mass fraction] 95 % Qamar Rowan Other [employer] Other 10-02-2021 15:15-0400 Systolic blood pressure 154 mm[Hg] Qamar Rowan Other [employer] Other 04-18-2021 17:20-0500 Body height 163.83 cm Dilan Sergio Other [employer] Other 04-18-2021 17:20-0500 Body mass index (BMI) [Ratio] 49.85 kg/m2 Dilan Sergio Other [employer] Other 04-18-2021 17:20-0500 Body temperature 97 [degF] Dilan Sergio Other [employer] Other 04-18-2021 17:20-0500 Body weight 133.81 kg Dilan Sergio Other [employer] Other 04-18-2021 17:20-0500 Diastolic blood pressure 70 mm[Hg] Dilan Sergio Other [employer] Other 04-18-2021 17:20-0500 Respiratory rate 24 /min Dilan Sergio Other [employer] Other 04-18-2021 17:20-0500 SaO2% (BldA) [Mass fraction] 97 % Dilan Sergio Other [employer] Other 04-18-2021 17:20-0500 Systolic blood pressure 130 mm[Hg] Dilan Sergio Other [employer] Other 04-02-2021 15:30-0500 Body height 163.83 cm Qamar Foremandano Other [employer] Other 04-02-2021 15:30-0500 Body mass index (BMI) [Ratio] 49.51 kg/m2 Mehraner Harpal Other [employer] Other 04-02-2021 15:30-0500 Body temperature 97.1 [degF] Qamar Froemandano Other [employer] Other 04-02-2021 15:30-0500 Body weight 132.9 kg Mehraner Harpal Other [employer] Other 04-02-2021 15:30-0500 Diastolic blood pressure 88 mm[Hg] Qamar Foremandano Other [employer] Other 04-02-2021 15:30-0500 Respiratory rate 20 /min Mehraner Harpal Other [employer] Other 04-02-2021 15:30-0500 SaO2% (BldA) [Mass fraction] 97 % Mehraner Harpal Other [employer] Other 04-02-2021 15:30-0500 Systolic blood pressure 172 mm[Hg] Mehraner Harpal Other [employer] Other 11-27-2020 14:25-0400 Body height 162.79 cm No PCP None [facility] Work Phone: 11-27-2020 14:25-0400 Body mass index (BMI) [Ratio] 50.57 kg/m2 No PCP None GS[facility]isxk[facility] Work Phone: 11-27-2020 14:25-0400 Body surface area Derived from formula 2.31 m2 No PCP None BR[facility]fhjzat[facility] Work Phone: 11-27-2020 14:25-0400 Body temperature 36.4 [degF] No PCP None [facility] Work Phone: 11-27-2020 14:25-0400 Body weight 134.01 kg No PCP None JH[facility]Mzdaffh[facility] Work Phone: 11-27-2020 14:25-0400 Diastolic blood pressure 79 mm[Hg] No PCP None [facility] Work Phone: 11-27-2020 14:25-0400 Heart rate 75 /min No PCP None VQ-Cyacihg[facility]Tnmx[facility]University [facility] Work Phone: 11-27-2020 14:25-0400 Respiratory rate 16 /min No PCP None [facility] Work Phone: 11-27-2020 14:25-0400 SaO2% (BldA) [Mass fraction] 96 % No PCP None [facility] Work Phone: 11-27-2020 14:25-0400 Systolic blood pressure 166 mm[Hg] No PCP None [facility] Work Phone: 11-27-2020 14:25-0400 4 1 No PCP None IT-Yibdfps-GnyloUniversity [facility] Work Phone: Comment on above: [employer] 1950 [...] Unsolicited Start: 05-21-[address] [facility] Start: 04-22-2024 End: 04-22-2024 Office outpatient visit 10 minutes Kailee Nova DPM Work Phone: [facility] Comment on above: Ingrown toenail (Shy nimco Dx); Left foot pain Start: 04-22-2024 End: 04-22-2024 ambulatory KAILEE NOVA Not Available Start: 04-22-2024 End: 04-22-2024 Bamboo flowsheet Kailee Nova DPM Work Phone: [facility] Start: 04-22-2024 End: 04-22-2024 Bamboo flowsheet Kailee Nova DPM Work Phone: [facility] Start: 04-19-2024 End: 04-19-2024 Assay of [...] Start: 04-12-2024 End: 04-12-2024 ambulatory Rajesh Mercer Facility:[facility] Start: 03-25-2024 End: 03-25-2024 Office outpatient visit 15 minutes Kailee Nova DPM Work Phone: [facility] Comment on above: Ingrown toenail (Shy nimco Dx); Left foot pain; Onychomycosis; Type 2 diabetes mellitus without complication, without long-term current use of insulin ([facility]) Start: 03-25-2024 End: 03-25-2024 ambulatory KAILEE NOVA Not Available Start: 03-25-2024 End: 03-25-2024 Bamboo flowsheet Kailee Nova DPM Work Phone: [facility] Start: 03-25-2024 End: 03-25-2024 Bamboo flowsheet Kailee Nova DPM Work Phone: [facility] Start: 03-03-2024 ambulatory Dez Gallagher Jr [facility] Start: 03-03-2024 End: 03-03-2024 Refill Gina Bustillo MD Work Phone: [facility] Comment on above: Type 2 diabetes gauri itus with hypoglycemia without coma, without long-term current use of insulin ([facility]) Start: 03-01-2024 End: 03-01-2024 Refill Jemima Friday AREA SAFETY MANAGER Work Phone: [facility] Comment on above: Primary osteoarthrit is of both knees (Primary Dx) Start: 02-26-2024 End: 02-26-2024 Office outpatient visit 25 minutes Gina Bustillo MD Work Phone: [facility] Comment on above: Type 2 diabetes gauri itus with hypoglycemia without coma, without long-term current use of insulin ([facility]) (Primary Dx); Primary hypertension; Mixed hyperlipidemia Start: 02-26-2024 End: 02-26-2024 ambulatory GINA BUSTILLO [facility] Start: 02-24-2024 End: 02-24-2024 Office outpatient visit 10 minutes Kailee Nova DPM Work Phone: [facility] Comment on above: Ingrown toenail (Shy nimco Dx); Left foot pain Start: 02-24-2024 End: 02-24-2024 ambulatory KAILEE NOVA Not Available Start: 01-29-2024 End: 01-29-2024 Refill Gina MCGREGOR Work Phone: [facility] Comment on above: Primary osteoarthrit is of both knees Start: 01-26-2024 End: 01-26-2024 Office outpatient visit 10 minutes Kailee Nova DPM Work Phone: [facility] Comment on above: Ingrown toenail (Shy rinaldi Dx); Left foot pain Start: 01-26-2024 End: 01-26-2024 ambulatory KAILEE NOVA Not Available Start: 01-26-2024 End: 01-26-2024 Bamboo flowsheet Kailee Nova DPM Work Phone: [facility] Start: 01-26-2024 End: 01-26-2024 Bamboo flowsheet Kailee Nova DPM Work Phone: [facility] Start: 01-16-2024 End: 01-16-2024 Bamboo flowsheet [...] Available Start: 12-31-[address] [facility] Start: 12-08-2023 End: 12-08-2023 ambulatory KAILEE NOVA Not Available Start: 11-25-2023 End: 11-25-2023 Office outpatient visit 25 minutes Maggi Peralta TECHNICAL ILLUSTRATIONS MAP INKER-AERONAUTICS TEACHER Work Phone: [facility] Comment on above: Type 2 diabetes gauri itus with hyperglycemia, with long-term current use of insulin ([facility]) (Primary Dx); Primary hypertension; Mixed hyperlipidemia Start: 11-25-2023 End: 11-25-2023 ambulatory MAGGIJULIA PERALTA [facility] Start: 11-13-2023 End: 11-13-2023 ambulatory II Rajesh Mercer Work Phone: [facility] Work Phone: Start: 11-13-2023 End: 11-13-2023 Patient encounter procedure II Rajesh Mercer Work Phone: [facility] Work Phone: Start: 11-10-2023 End: 11-10-2023 Patient encounter procedure II Rajesh Mercer Work Phone: [facility] [place] Work Phone: Start: 11-10-2023 End: 11-10-2023 ambulatory Dilan Sergio Facility:[facility] Start: 11-08-2023 End: 11-10-2023 Zane Bustillo MD Work Phone: [facility] Comment on above: Type 2 diabetes gauri itus with hyperglycemia, with long-term current use of insulin ([facility]) Start: 10-27-2023 End: 10-27-2023 Telephone encounter Maggi Peralta TECHNICAL ILLUSTRATIONS MAP INKER-AERONAUTICS TEACHER Work Phone: [facility] Start: 10-22-2023 End: 10-22-2023 ambulatory KAILEE NOVA Not Available Start: 10-16-2023 End: 10-16-2023 Refcelio Bustillo MD Work Phone: [facility] Comment on above: Type 2 diabetes gauri itus with hyperglycemia, with long-term current use of insulin ([facility]) Start: 09-25-2023 End: 09-25-2023 Refill Maggi Peralta TECHNICAL ILLUSTRATIONS MAP INKER-AERONAUTICS TEACHER Work Phone: [facility] Comment on above: Type 2 diabetes gauri itus with hyperglycemia, with long-term current use of insulin ([facility]) Start: 09-10-2023 End: 09-10-2023 ambulatory KAILEE NOVA Not Available Start: 09-03-2023 End: 09-03-2023 ambulatory [facility] Start: 09-03-2023 End: 09-03-2023 Office outpatient visit 25 minutes Reyna Rdz MD Work Phone: [facility] Comment on above: Fissure in skin (Shy [...] hyperglycemia, with long-term current use of insulin ([facility]) Start: 08-08-2023 End: 08-08-2023 ambulatory MAGGI Cárdenas BECKY [facility] Start: 08-08-2023 End: 08-08-2023 Office outpatient visit 25 minutes Maggi Peralta TECHNICAL ILLUSTRATIONS MAP INKER-AERONAUTICS TEACHER [facility] Comment on above: Type 2 diabetes gauri itus with hyperglycemia, with long-term current use of insulin ([facility]) (Primary Dx); Primary hypertension Start: 07-26-2023 Zane rodarte MD Work Phone: [facility] Comment on above: Type 2 diabetes gauri itus with hyperglycemia, with long-term current use of insulin ([facility] [place]) Start: 07-24-2023 End: 07-24-2023 ambulatory KAILEE NOVA Not Available Start: 07-21-2023 End: 07-21-2023 Patient encounter procedure II Rajesh Mercer Work Phone: [facility] [place] Work Phone: Start: 07-21-2023 End: 07-21-2023 ambulatory II Rajesh Mercer Work Phone: [facility] Work Phone: Start: 07-21-2023 End: 07-21-2023 ambulatory II Rajesh Mercer Work Phone: [facility] Work Phone: Start: 07-21-2023 End: 07-21-2023 Patient encounter procedure II Rajesh Mercer Work Phone: [facility] Work Phone: Start: 07-18-2023 End: 07-18-2023 Patient encounter procedure II Rajesh Mercer Work Phone: [facility] [place] Work Phone: Start: 07-18-2023 End: 07-18-2023 ambulatory II Rajesh Mercer Work Phone: [facility] [place] [facility] Work Phone: Start: 2023 Refcelio rodarte MD Work Phone: [facility] Comment on above: Type 2 diabetes gauri itus with hypoglycemia without coma, without long-term current use of insulin ([facility] (Primary Dx) Start: 06-29-2023 Refill Maggi Peralta TECHNICAL ILLUSTRATIONS MAP INKER-AERONAUTICS TEACHER Work Phone: [facility] Comment on above: Type 2 diabetes gauri itus with hyperglycemia, with long-term current use of insulin ([facility]) Start: 03-04-2023 End: 03-04-2023 ambulatory Christchazer Harpal Other [employer] Other Start: 03-04-2023 Office outpatient vi sit 15 minutes Qamar Pandano [facility] Start: 03-03-2023 End: 03-03-2023 [facility] Start: 03-03-2023 End: 03-03-2023 Office outpatient visit 25 minutes Reyna Rdz MD Work Phone: [facility] Comment on above: Furuncle (Primary Dx ); Melanocytic nevus, unspecified location; Lentigo; Hemangioma of other sites; Seborrheic keratosis; Scar conditions and fibrosis of skin; Personal history of malignant melanoma of skin Start: 12-20-2022 End: 12-20-2022 ambulatory Idlan Sergio Other [employer] Other Start: 12-20-2022 Telephone encounter Dilan Sergio [facility] Start: 12-17-2022 End: 12-17-2022 ambulatory Dilan Sergio Other [employer] Other Start: 12-17-2022 Telephone encounter Dilan Sergio [facility] Start: 11-27-2022 End: 11-27-2022 ambulatory Dilan Sergio Other [employer] Other Start: 11-27-2022 Office outpatient vi sit 25 minutes Dilan Sergio [facility] Start: 09-09-2022 ambulatory Reyna Zhou ity:[id number] Start: 09-03-2022 End: 09-03-2022 ambulatory Christchazer Harpal Other [employer] Other Start: 09-03-2022 Office outpatient vi sit 15 minutes Christchazer Harpal [facility] Start: 08-29-2022 End: 08-29-2022 ambulatory Dilan Sergio Other [employer] Other Start: 08-29-2022 Office outpatient vi sit 15 minutes Dilan Sergio [facility] [place] Start: 08-26-2022 ambulatory Rajesh Mercer II Facility:[id number] Start: 08-26-2022 ambulatory Rajesh Mercer II Facility:[id number] Start: 08-19-2022 End: 08-19-2022 ambulatory Dilan Sergio Other [employer] Other Start: 08-19-2022 Telephone encounter Dilan Sergio [facility] Start: 07-15-2022 End: 07-15-2022 ambulatory Dilan Sergio Other [employer] Other Start: 07-15-2022 Office outpatient vi sit 25 minutes Dilan Sergio [facility] Start: 07-13-2022 End: 07-13-2022 ambulatory II Rajesh Mercer Work Phone: [facility] [place] [facility] Work Phone: Start: 07-13-2022 End: 07-13-2022 Patient encounter procedure II Rajesh Mercer Work Phone: [facility] [place] Work Phone: Start: 07-10-2022 ambulatory Rajesh Mercer II Facility:[id number] Start: 07-09-2022 End: 07-10-2022 Office outpatient visit 15 minutes Reyna Rdz Dept. of Dermatology Start: 07-09-2022 End: 07-10-2022 Office outpatient visit 25 minutes Reyna Rdz Dept. of Dermatology Start: 05-13-2022 End: 05-13-2022 ambulatory II Rajesh Mercer Work Phone: [facility] Work Phone: Start: 05-13-2022 End: 05-13-2022 Patient encounter procedure II Rajesh Mercer Work Phone: [facility] [place] Work Phone: Start: 05-08-2022 End: 05-08-2022 ambulatory Dilan Sergio Other [employer] Other Start: 05-08-2022 Telephone encounter Dilan Sergio [facility] Start: 03-07-2022 End: 03-07-2022 ambulatory Dilan Sergio Other [employer] Other Start: 03-07-2022 Telephone encounter Dilan Sergio [facility] Start: 03-06-2022 End: 03-06-2022 ambulatory II Rajesh Mercer Work Phone: [facility] [place] [facility] Work Phone: Start: 03-06-2022 End: 03-06-2022 Patient encounter procedure II Rajesh Mercer Work Phone: [facility] Start: 03-04-2022 End: 03-04-2022 ambulatory Christopher Harpal Other [employer] Other Start: 03-04-2022 Office outpatient vi sit 15 minutes Christopher Harpal [facility] Start: 02-21-2022 End: 02-21-2022 ambulatory Dilan Sergio Other [employer] Other Start: 02-21-2022 Office outpatient vi sit 25 minutes Dilan Sergio [facility] Start: 02-20-2022 End: 02-20-2022 ambulatory II Rajesh Mercer Work Phone: [facility] [place] [facility] Work Phone: Start: 02-20-2022 End: 02-20-2022 Patient encounter procedure II Rajesh Mercer Work Phone: [facility] [place] Start: 11-01-2021 End: 11-01-2021 ambulatory Dilan Sergio Other [employer] Other Start: 11-01-2021 Telephone encounter Dilan Sergio [facility] Start: 10-23-2021 End: 10-23-2021 ambulatory Dilan Sergio Other [employer] Other Start: 10-23-2021 Office outpatient vi sit 25 minutes Dilan Sergio [facility] Start: 10-19-2021 ambulatory Rajesh Bayjessy Mercer II Facility:[id number] Start: 10-02-2021 End: 10-02-2021 ambulatory Qamar Rowan Other [employer] Other Start: 10-02-2021 Office outpatient vi sit 15 minutes Qamar Rowan [facility] Start: 08-15-2021 End: 08-15-2021 Office outpatient visit 15 minutes Reyna Rdz Dept. of Dermatology Start: 08-06-2021 End: 08-06-2021 ambulatory Dilan Sergio Other [employer] Other Start: 08-06-2021 Telephone encounter Dilan Sergio [facility] Start: 08-03-2021 End: 08-25-[address] RAJ GALLOWAY Facility:[id number] Start: 06-18-2021 Patient encounter procedure No PCP None [id number] Work Phone: Start: 06-18-2021 Phys/qhp telephone evaluation 11-20 min No PCP None [id number] Start: 04-18-2021 End: 04-18-2021 ambulatory Dilan Sergio Other [employer] Other Start: 04-18-2021 Office outpatient vi sit 25 minutes Dilan Nguyễn [facility] Start: 04-02-2021 End: 04-02-2021 ambulatory Mehranmarissa Harpal Other Prince Quellan Other Start: 04-02-2021 Office outpatient vi sit 15 minutes Qamar Rowan [facility] Start: 12-19-2020 Chart Update No PCP None [facility] Work Phone: Start: 11-27-2020 Office outpatient vi sit 15 minutes No PCP None [id number] Work Phone: Start: 09-13-2020 End: 09-13-2020 Office outpatient visit 15 minutes [facility] Start: 01-26-2020 End: 01-26-2020 Office outpatient visit 15 minutes [facility] Start: 01-26-2020 End: 01-26-2020 Office outpatient visit 25 minutes [facility] Start: 03-06-2018 End: 03-07-2018 Patient encounter procedure [facility] Start: 09-19-2017 End: 09-20-2017 Patient encounter procedure [facility] Procedures Date Procedure Procedure Detail Performing Clinician Start: 06-18-2024 ALL MAGNESIUM Rajesh Mercer MD Work Phone: Start: 06-18-2024 [facility] CMP (CMP) (FOR R [facility] USE) Rajesh Mercer MD Work Phone: Start: 06-18-2024 Urnls dip stick/tabl et rgnt non-auto w/o micrscp aRjesh Mercer MD Work Phone: Start: 05-31-2024 BLOOD [...] Start: 11-25-2023 Hemoglobin glycosylated a1c Maggi Peralta TECHNICAL ILLUSTRATIONS MAP INKER-AERONAUTICS TEACHER Work Phone: Start: 10-24-2023 Diabetic retinal eye exam Gina Bustillo MD Work Phone: Start: 08-08-2023 Hemoglobin glycosylated a1c Maggi Peralta TECHNICAL ILLUSTRATIONS MAP INKER-AERONAUTICS TEACHER Work Phone: Start: 08-05-2023 Urine albumin quantitative Rajesh Mercer MD Work Phone: Start: 07-18-2023 Urine culture II Rajesh Mercer Work Phone: Start: 11-25-2022 Microalbumin [Mass/v olume] in Urine by Test strip Maggi Peralta APRN-AERONAUTICS TEACHER Work Phone: Start: 07-09-2022 End: 07-10-2022 Tangential [...] 03-03-2025 Glaucoma screening Diabetes: R etinopathy Screening [facility] Start: 02-25-2025 Adult BMI Screening Adult BMI Screen ing [facility] Start: 02-25-2025 Tobacco Screening Tobacco Screening [facility] Start: 11-24-2024 Adult BMI Screening Adult BMI Screen ing [facility] Start: 11-24-2024 Tobacco Screening Tobacco Screening [facility] Start: 10-23-2024 Glaucoma screening Diabetic Op hthalmology Exam [facility] Start: 10-18-2024 End: 10-18-2024 Patient encounter procedure 10/18/2024 3:30 PM EDT Office Visit [facility] [address] [place] [address] Rajesh Mercer MD [address] [place] [address] [facility] Start: 08-26-2024 End: 08-26-[address] [facility] Start: 08-17-2024 End: 08-17-2024 Patient encounter procedure 08/17/2024 3:45 PM EDT Office Visit [facility] [address] [place] [phone] Kailee Nova, DPM [address] [place] [address] [facility] Start: 08-07-2024 Adult BMI Screening Adult BMI Screen ing [facility] Start: 08-07-2024 Tobacco Screening Tobacco Screening [facility] Start: 08-04-2024 Urine screening for protein Diabetes: Urine Protein Screening [facility] Start: 07-20-2024 End: 07-20-2024 Patient encounter procedure 07/20/2024 3:45 PM EDT Office Visit [facility] [address] [place] [phone] Kailee Nova, DPM [address] [place] [address] [facility] Start: 06-22-2024 End: 06-22-2024 Patient encounter procedure 06/22/2024 3:45 PM EST Office Visit [facility] [address] [place] [address] Kailee Nova, DPM [address] [place] [address] [facility] Start: 06-18-2024 End: 06-18-2025 Comprehensive metabolic 2000 panel - Serum or Plasma Comprehensive metabolic panel Lab Routine 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 ([facility]) Expected: 06/18/2024 (Approximate), Expires: 06/18/2025 [facility] Comment on above: Expected: 06/18/2024 (Approximate), Expires: 06/18/2025 Start: 06-18-2024 End: 06-18-2025 Magnesium [Mass/volume] in Serum or Plasma Magnesium Lab Routine 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 (CMS/HCC) Expected: 06/18/2024 (Approximate), Expires: 06/18/2025 [facility] Comment on above: Expected: 06/18/2024 (Approximate), Expires: 06/18/2025 Start: 06-18-2024 End: 06-18-2024 Patient encounter procedure 06/18/2024 11:30 AM EST Office Visit [facility] [address] [facility] [address] [place] [address] Rajesh Mercer MD [address] [facility] [address] [place] [address] Arrived [facility] Comment on above: Arrived Start: 06-10-2024 End: 06-10-2024 Patient encounter procedure 06/10/2024 10:30 AM EST Office Visit [facility] [address] [facility] [address] [place] [address] Rajesh Mercer MD 112 [facility] [address] [place] [address] [facility] Start: 05-28-2024 Hemoglobin A1c measurement Diabetes: Hemoglobin A1C [facility] Start: 05-24-2024 End: 05-24-2024 Patient encounter procedure 05/24/2024 4:15 PM EST Office Visit [facility] [address] [place] [phone] Kailee Nova, DPM [address] [place] [address] [facility] Start: 04-22-2024 End: 04-22-2024 Patient encounter procedure [facility] Comment on above: Arrived Start: 04-21-2024 End: 04-21-2024 Patient encounter procedure [facility] Start: 04-19-2024 End: 04-19-2024 Patient encounter procedure [facility] Comment on above: Arrived Start: 03-25-2024 End: 03-25-2024 Patient encounter procedure 03/25/2024 2:30 PM EST Office Visit [facility] [address] [place] [phone] Kailee Nova, DPM [address] [place] [address] Arrived [facility] Comment on above: Arrived Start: 03-24-2024 End: 03-24-2024 Patient encounter procedure 03/24/2024 3:00 PM EST Office Visit [facility] [address] [place] [phone] Kailee Nova, DPM [address] [place] [address] [facility] Start: 03-23-2024 End: 03-23-2024 Patient encounter procedure 03/23/2024 4:00 PM EST Office Visit [facility] [address] [place] [phone] Michael Bass DPM [address] [place] [address] [facility] Start: 03-10-2024 End: 03-10-2024 Patient encounter procedure 03/10/2024 3:00 PM EST Office Visit [facility] [address] [phone] Reyna Rdz MD 950 [facility] [address], [facility] [address] [place] [address] [facility] Start: 03-05-2024 Examination of skin Derm Melan leydi Skin Check [facility] Start: 02-27-2024 Medicare Annual Wellness (AWV) Medicare Annual Wellness (AWV) [facility] Start: 02-27-2024 Screening for malign ant neoplasm of colon Colorectal Cancer Screening [facility] Comment on above: Postponed from 07/01 (Patient Refused) Start: 02-26-2024 Screening for malign ant neoplasm of breast Mammogram [facility] Comment on above: Postponed from 07/01 (Patient Refused) Start: 02-26-2024 End: 02-26-2024 Patient encounter procedure 02/26/2024 11:45 AM EDT Office Visit [facility] [address] [place] [phone] Gina Bustillo MD [address] [place] [address] [facility] Start: 02-25-2024 Hemoglobin A1c measurement Diabetes: Hemoglobin A1C [facility] Start: 02-24-2024 End: 02-24-2024 Patient encounter procedure 02/24/2024 2:30 PM EDT Office Visit [facility] [address] [place] [address] Kailee Nova DPM [address] [facility] [address] [place] [address] [facility] Start: 01-26-2024 End: 01-26-2024 Patient encounter procedure [facility] Comment on above: Arrived Start: 01-24-2024 Glaucoma screening Diabetes: R etinopathy Screening [facility] Start: 01-16-2024 End: 01-15-2025 XR Knee - right 4 Views XR knee 4+ views right Imaging Routine Acute pain of right knee Expected: 01/16/2024, Expires: 01/15/2025 [facility] Work Phone: Comment on above: Expected: 01/16/2024 , Expires: 01/15/2025 Start: 01-16-2024 End: 01-16-2024 Patient encounter procedure 01/16/2024 1:00 PM EDT Office Visit [facility] [address] [facility] [address] [place] [phone] Gina Zarate PA [address] [facility] [address] [place] [address] Arrived [facility] Comment on above: Arrived Start: 01-04-2024 Influenza vaccination N [facility] Start: 12-21-2023 Adult BMI Screening Adult BMI Screen ing [facility] Start: 12-21-2023 Tobacco Screening Tobacco Screening [facility] Start: 11-26-2023 Urine screening for protein [facility] Start: 11-25-2023 End: 11-25-2023 Patient encounter procedure 11/25/2023 11:30 AM EDT Office Visit [facility] [address] [place] [address] Maggi Peralta, TECHNICAL ILLUSTRATIONS MAP INKER-AERONAUTICS TEACHER [address] [place] [address] [facility] Start: 09-03-2023 End: 09-03-2023 Patient encounter procedure 09/03/2023 2:45 PM EDT Office Visit [facility] [address] [phone] Reyna Rdz MD [address], [facility] [address] [place] [address] [facility] Start: 07-18-2023 Bacteria identified in Urine by Culture Urine Culture [facility] Start: 06-27-2023 COVID-19 Vaccine ( season) COVID-19 Vaccine ( season) [facility] Start: 06-27-2023 COVID-19 Vaccine ( season) COVID-19 Vaccine ( season) [facility] Start: 04-21-2023 COVID-19 Vaccine (4 - Moderna series) COVID-19 Vaccine (4 - Moderna series) [facility] Start: 03-22-2023 Hemoglobin A1c measurement Diabetes: Hemoglobin A1C [facility] Start: 01-03-2023 COVID-19 Vaccine ( season) COVID-19 Vaccine ( season) [facility] Start: 01-03-2023 Influenza vaccination Influenza Vacc ine [facility] Start: 07-13-2022 Bacteria identified in Urine by Culture [facility] Start: 05-21-2021 FUV, Provider: Heath Francisco, Status: Pen, Time: 2:00 PM FUV, Provider: Heath Francisco, Status: Pen, Time: 2:00 PM [facility] Work Phone: Start: 04-20-2020 Pneumococcal Vaccine : 65+ Years (2 - PCV) Pneumococcal Vaccine: 65+ Years (2 - PCV) [facility] Start: 04-20-2020 Pneumococcal Vaccine : 65+ Years (2 of 2 - PCV) Pneumococcal Vaccine: 65+ Years (2 of 2 - PCV) [facility] Start: 2016 Fall Risk Screening Fall Risk Screen ing [facility] Start: 2011 RSV patient s and/or patients aged 60+ years (1 - 1-dose 60+ series) RSV patients and/or patients aged 60+ years (1 - 1-dose 60+ series) [facility] Start: 2001 Administration of varicella zoster vaccine Zoster (Shingles) Vaccine (1 of 2) [facility] Start: 2001 Zoster Vaccines (1 o f 2) Zoster Vaccines (1 of 2) [facility] Start: 1991 Screening for malign ant neoplasm of breast Mammogram [facility] Start: 1973 DTaP/Tdap/Td Vaccine s (1 - Tdap) DTaP/Tdap/Td Vaccines (1 - Tdap) [facility] Start: 1970 DTaP,Tdap and Td Vaccines (1 - Tdap) DTaP,Tdap and Td Vaccines (1 - Tdap) [facility] Start: 1970 Urine screening for protein Diabetes: Urine Protein Screening [facility] Start: 1969 Adult BMI Follow Up Plan Adult BMI Follow Up Plan [facility] Start: 1969 Diabetic foot examination Diabetic Foot Exam [facility] Start: 1969 Hepatitis C screening Hepatitis C Sc reening [facility] Start: 1963 Depression Screening Depression Scre ening [facility] Start: 1961 Diabetic foot examination Diabetes: Foot Exam [facility] Start: 1951 Examination of skin Derm Melan leydi Skin Check [facility] Start: 1951 Glaucoma screening Diabetic Op hthalmology Exam [facility] Start: 1951 Lipid panel Lipid Panel [facility] Start: 1951 Medicare Annual Wellness Visit [facility] Start: 1951 Screening for malign ant neoplasm of colon [facility] Start: 1951 Screening for osteoporosis Bone Density Scan [facility] Bacteria identified in Urine by Culture [facility] BLOOD CULTURE 1 BLOOD CULTURE 1 Lab Routine 05/31/2024 4:30 PM EST [facility] BLOOD CULTURE 2 BLOOD CULTURE 2 Lab Routine 05/31/2024 4:40 PM EST [facility] CBC W Auto Different ial panel - Blood CBC and differential Lab Routine 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 ([facility]/HCC) Ordered: 06/18/2024 [facility] Work Phone: Comment on above: Ordered: 06/18/2024 End: 11-24-2024 Lipid panel Lipid panel Lab Routine Mixed hyperlipidemia 1 Occurrences starting 11/25/2023 until 11/24/2024 [facility] Work Phone: Comment on above: 1 Occurrences starti ng 11/25/2023 until 11/24/2024 Renal function 1999 panel - Serum or Plasma [facility] Renal function 1999 panel - Serum or Plasma [facility] Immunizations Immunization Date Immunization Notes Care Provider [facility] 02-23-2024 Seasonal trivalent influenza vaccine, adjuvanted, preservative free Rajesh Mercer MD Work Phone: [facility] 02-23-2024 influenza virus vaccine, unspecified formulation Kailee Nova DPM Work Phone: [facility] 02-24-2023 Influenza, Seasonal, Quadrivalent, Adjuvanted Reyna Rdz MD Work Phone: [facility] Work Phone: 02-24-2023 Pfizer COVID-19 vaccine, Fall 2022, 12 years and older, (30mcg/0.3mL) Reyna Rdz MD Work Phone: [facility] Work Phone: 02-24-2023 influenza virus vaccine, unspecified formulation Maggi Peralta TECHNICAL ILLUSTRATIONS MAP INKER-AERONAUTICS TEACHER Work Phone: [facility] 02-20-2022 Influenza, Seasonal, Quadrivalent, Adjuvanted Reyna Rdz MD Work Phone: [facility] Work Phone: 02-20-2022 influenza virus vaccine, unspecified formulation Maggi Peralta TECHNICAL ILLUSTRATIONS MAP INKER-AERONAUTICS TEACHER Work Phone: [facility] 02-13-2022 influenza, high dose seasonal, preservative-free Reyna Rdz MD Work Phone: [facility] Work Phone: 01-26-2022 Moderna COVID-19 vaccine, bivalent, blue cap/harrell label *Check age/dose* Reyna Rdz MD Work Phone: [facility] Work Phone: 03-22-2021 influenza, high dose seasonal, preservative-free Reyna Rdz MD Work Phone: [facility] Work Phone: 03-06-2021 COVID-19 Moderna Hectoropher Harpal Other [facility] 08-25-2020 COVID-19 [facility] Other [facility] 07-26-2020 COVID-19 Moderna Christopher Harpal Other [facility] 05-16-2020 influenza virus vaccine, unspecified formulation Gina MCGREGOR Work Phone: [facility] 05-16-2020 influenza, injectabl e, quadrivalent, contains preservative Reyna Rdz MD Work Phone: [facility] Work Phone: 04-20-2019 pneumococcal polysaccharide vaccine, 23 valent Reyna Rdz MD Work Phone: [facility] Work Phone: 03-29-2019 Influenza, injectabl e, Madin Mojave Canine Kidney, preservative free, quadrivalent Reyna Rdz MD Work Phone: [facility] Work Phone: 02-08-2018 Seasonal trivalent influenza vaccine, adjuvanted, preservative free Reyna Rdz MD Work Phone: [facility] Work Phone: 02-07-2016 influenza, injectabl e, quadrivalent, contains preservative Reyna Rdz MD Work Phone: [facility] Work Phone: 01-06-2015 seasonal influenza, intradermal, preservative free Gina MCGREGOR Work Phone: [facility] 02-22-2008 influenza virus vaccine, whole virus Reyna Rdz MD Work Phone: [facility] 1950 pneumococcal conjuga te vaccine, 7 valent Reyna Rdz Dept. of Dermatology Payers Date Payer Category Payer Self-pay [id number] 2021 Private Health Insurance [facility] [id number]. [id number] 2019 [facility] [id number]. [id number] 2019 Unknown 2017 Private Health Insurance [id number] 2016 Medicare [id number]. 1.13.647.2. [id number] 1959 Medicare [id number] 1959 Unknown [id number] 1951 Unknown [id number] 2.16.840.1.797685.3.579.2. 173 1951 Unknown [id number] 2.16.840.1.691568.3.579.2. 173 1951 Unknown [id number] 2.16.840.1.984600.3.579.2. 593 1951 Unknown [id number] 2.16.840.1.736379.3.579.2. 356 1951 Unknown [id number] 2.16.840.1.591994.3.579.2. 356 1951 Unknown [id number] 2.16.840.1.525619.3.579.2. 356 1951 Unknown [id number] 2.16.840.1.296639.3.579.2. 356 1951 Unknown [id number] 2.16.840.1.148939.3.579.2. 356 1951 Unknown [id number] 2.16.840.1.033597.3.579.2. 356 1951 Unknown [id number] 2.16.840.1.569680.3.579.2. 1244 1951 Unknown [id number] 2.16.840.1.249840.3.579.2. 1244 1951 Unknown [id number] 2.16.840.1.537033.3.579.2. 1286 1951 Unknown [id number] 2.16.840.1.964461.3.579.2. 1286 1951 Unknown [id number] 2.16.840.1.081726.3.579.2. 1286 1951 Unknown [id number] 2.16.840.1.126962.3.579.2. 1347 1951 Unknown [id number] 2.16.840.1.079935.3.579.2. 1347 1951 Unknown [id number] 2.16.840.1.652562.3.579.2. 1347 1951 Unknown [id number] 2.16.840.1.116187.3.579.2. 1259 1951 Unknown [id number] 2.16.840.1.365046.3.579.2. 1259 1951 Unknown [id number] 2.16.840.1.844752.3.579.2. 9 1951 Unknown [id number] 2.16.840.1.350407.3.579.2. 125 1951 Unknown [id number] 2.16.840.1.611865.3.579.2. 1259 1951 Unknown [id number] 2.16.840.1.613360.3.579.2. 1259 1951 Unknown [id number] 2.16.840.1.967319.3.579.2. 1259 1951 Unknown [id number] 2.16.840.1.894122.3.579.2. 1259 1951 Unknown [id number] 2.16.840.1.665838.3.579.2. 1259 1951 Unknown [id number] 2.16.840.1.837083.3.579.2. 1259 1951 Unknown [id number] 2.16.840.1.968567.3.579.2. 1259 Unknown [id number] 2.16.840.1.914071.3.579.2. 531 Unknown [id number] 2.16.840.1.409631.3.579.2. 531 Unknown [id number] 2.16.840.1.891122.3.579.2. 531 Unknown [id number] 2.16.840.1.310651.3.579.2. 531 Social History Date Type Detail Facility Start: 09-13-2020 Dept. of ermatology Start: 1950 End: 1950 Sex Assigned At Female [facility] Start: 06-14-2020 End: 01-26-2024 Sex Assigned At [facility] Other Start: 1950 Sex Assigned At Not on file [facility] Work Phone: Start: 02-21-2023 End: 09-03-2023 Exposure to SARS-CoV-2 (event) Not sure [facility] Start: 03-11-2018 End: 07-04-2022 Tobacco smoking status NHIS Never smoked tobacco (finding) [facility] Start: 07-04-2022 End: 09-03-2023 Tobacco use and exposure Smokeless tobacco non-user [facility] Work Phone: Start: 02-24-2024 End: 06-18-2024 Alcoholic beverage intake Lifetime non-drinker (finding) [facility] Start: 06-14-2020 End: 01-26-2024 History of Social function [facility] Start: 06-12-2023 Alcohol Comment caffeine intak e: more than 4 cups per day [facility] Start: 08-08-2023 End: 02-26-2024 Alcoholic beverage intake Ex-drinker (finding) [facility] Adolescent depressio n screening assessment 0 [facility] Start: 12-06-2014 Sex Female (finding) [facility] Medical Equipment Procedure Code Equipment Code Equipment Origin al Text Equipment Identifier Dates [id number], [id number], [id number], [id number], [id number] Start: 05-17-2022 End: 03-03-2024 Goals Date Patient [...] Flowsheet Row Patient Outreach from 06/07/2024 in [facility] with Jemima Vidal LPN Hospital Information ED, Hospital or Longterm Facility Discharge? Hospital Patient has been contacted within two business days of discharge No Have two attempts been made to contact the patient within two business days of being discharged? Yes Diagnosis acute UTI, systemic inflammatory response system Discharge Date 06/02/24 Discharged To: Home Setting Discharge Hospital [facility] Engagement Call Start Time 1551 Admission Date [...] in the morning. Blood Glucose Monitoring Suppl (Kite.ly Verio Flex System) w/Device kit USE TO [...] 1 CAPSULE EVERY DAY 90 capsule 3 [employer] VerTriond test strip Use one strip to check [...] 0.55 - 1.02 mg/dL Final [facility] EGFR-AF ECUADOREAN 06/18/2024 46 (L) >=60 mL/min/1.73m 2 Final [facility] EGFR-NON AF [place]UADOREAN 06/18/2024 38 (L) >=60 mL/min/1.73m 2 Final [...] O:SCHATU Isolated ANAID1 05/31/2024 Performed at: - [facility] Final ANAID1 05/31/[address] [place] [address] [id number] Final ANAID1 05/31/2024 Laser Set Up Operator: Nemesio Shay PhD, Phone: [phone] Final Assessment/Plan Diagnoses and all orders for this visit: 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 documented in this encounter [facility] 04-22-2024 History of Presen t illness Narrative [...] future. RTC: prn. documented in this encounter [facility] 04-19-2024 History of Presen t illness [...] in the morning. Blood Glucose Monitoring Suppl (Smart Destinationsio Flex System) w/Device kit USE TO CHECK [...] 1 CAPSULE EVERY DAY 90 capsule 3 [employer] test strip Use one strip to check [...] Do you have a medical power of employment attorney?: No Objective : BP 122/70 Pulse [...] April 19, 2024 documented in this encounter [facility] 04-13-2024 Miscellaneous Notes LM that she is very concerned on the jardiance. In last 24 hours she has developed a sore on her labia. She uses [facility] in [place]. Asking if anything can be called in. [...] PCP. Patient informed. documented in this encounter [facility] 04-13-2024 Telephone encounter Note LM that she is very concerned on the jardiance. In last 24 hours she has developed a sore on her labia. She uses [facility] in [place]. Asking if anything can be called in. Also should she stop taking the medication for now? [facility] 04-13-2024 Telephone encounter Note I recommend she stop the Jardiance until the infection has healed. She also needs to let Nephrology know as I believe they prescribe the Jardiance. I did send in a prescription for a topical cream for her to place on the sore. If it is not improving in the next 24-48 hours, recommend she see her PCP. [facility] 04-13-2024 Telephone encounter Note Patient informed. [facility] 03-25-2024 History of Presen t illness Narrative [...] future. RTC: prn. documented in this encounter [facility] 02-26-2024 History of Presen t illness [...] daily. CGM reviewed, some lows in the [place] and [place]. Past Medical History: Diagnosis Date Diabetes mellitus ([facility]) Kidney disease Tremor Past Surgical History: Procedure [...] , Rfl: blood-glucose meter (ONETOUCH VERIO METER) [facility] Use daily 4 times a day DX:E11.65, [...] mouth., Disp: , Rfl: blood sugar diagnostic (ExpensifyUCH VERIO TEST STRIPS) strip, Use one strip [...] coma, without long-term current use of insulin ([facility]) - POCT Hemoglobin A1c - blood sugar [...] clinic: 3 months documented in this encounter [facility] 02-26-2024 Instructions Gina Bustillo MD - 02/26/2024 11:45 AM EDT Reduce Tresiba to 60 units twice/day Call the office if still having low blood sugars documented in this encounter [facility] 02-24-2024 History of Presen t illness Narrative [...] future. RTC: prn. documented in this encounter [facility] 01-29-2024 Telephone encounter Note OARRS reviewed, Rx sent into patient's pharmacy. It was an initial script after a big gap of time. Had to start with 5 day supply. [facility] 01-29-2024 Miscellaneous Notes OARRS reviewed, Rx [...] down to 5 pills. She's using [facility] [place] documented in this encounter [facility] 01-29-2024 Telephone encounter Note Pt stated she needs a refill of tramodol (I'm not seeing it on her med list.) The last prescription was only for 20. It was originally 60. She's down to 5 pills. She's using [facility] [place] [facility] 01-26-2024 History of Presen t illness [...] future. RTC: prn. documented in this encounter [facility] 01-16-2024 History of Presen t illness [...] in the morning. Blood Glucose Monitoring Suppl (Kite.ly Verio Flex System) w/Device kit USE TO [...] time. She will have them done at [facility]. Will notify pt of the [...] unspecified (CMS/HCC) The patient is seeing a manager medical for this condition, treatment is deferred to that specialist. Correspondence from that specialist and any available testing were reviewed during today's visit. Major depressive disorder, recurrent, moderate (HCC) (CMS/HCC) This is a chronic medical condition that is stable since last assessment. No changes in treatment are suggested at this time. Vitreous hemorrhage, unspecified eye (CMS/HCC) The patient is seeing a manager medical for this condition, treatment is deferred to that specialist. Correspondence from that specialist and any available testing were reviewed during today's visit. Follow up in about 6 weeks (around 02/27/2024) for Medicare Wellness Visit. documented in this encounter [facility] 11-25-2023 History of Presen t illness Narrative [...] Past Medical History: Diagnosis Date Diabetes mellitus ([facility]) Kidney disease Tremor Past Surgical History: Procedure [...] Rfl: 3 blood-glucose meter (ONETOUCH VERIO METER) [facility], Use daily 4 times a day DX:E11.65, [...] hyperglycemia, with long-term current use of insulin ([facility]) - POCT Hemoglobin A1c Hemoglobin A1c is [...] [facility] 11/25/23 1240 documented in this encounter [facility] 10-27-2023 Miscellaneous Notes LM that pharmacy cannot [...] to. Patient informed. documented in this encounter [facility] 10-27-2023 Telephone encounter Note LM that pharmacy [...] d/t complications with blood sugars. Please advise. [facility] 10-27-2023 Telephone encounter Note Please let patient know that I sent a prescription for Ozempic 1 mg weekly for her to switch to. [facility] 10-27-2023 Telephone encounter Note Patient informed. T [facility] 09-03-2023 History of Presen t illness Narrative [...] brown macules without atypia on dermoscopy. Scattered rsoas macules in sun-exposed areas. Stuck on verrucous, [...] fibrosis of skin documented in this encounter [facility] Work Phone: 08-08-2023 History of Presen [...] Past Medical History: Diagnosis Date Diabetes mellitus ([facility]) Kidney disease Tremor Past Surgical History: Procedure [...] Rfl: 3 blood-glucose meter (ONETOUCH VERIO METER) [facility], Use daily 4 times a day DX:E11.65, [...] hyperglycemia, with long-term current use of insulin ([facility]) - POCT Hemoglobin A1c Blood sugars drop [...] [place] 08/08/23 1411 [facility] 2023 Miscellaneous Notes OK to sign and send. Added note to have patient schedule appt [facility] 2023 Telephone encounter Note OK to sign and send. Added note to have patient schedule [facility]t [facility] Evaluation note Encounter Date Diagnosis Assessment Notes Feb, Dyspnea (ICD-10 - R06.00) Feb, Lymphadenopathy (ICD-10 - R59.1) Feb, Rhinitis (ICD-10 - J31.0) [employer] Other 10-30-2023 History of Present illness Narrative* [...] of Reyna Rdz [facility]. [facility] 1(300) 835-300208-15-2023 Evaluation note* Encounter Date Diagnosis Assessment Notes Treatment Notes Treatment Clinical Notes Dec, Hypertensive chronic kidney disease with stage 1 through stage 4 chronic kidney disease, or unspecified chronic kidney disease (ICD-10 - I12.9) [employer] Other 07-26-2023 Evaluation note* Encounter Date Diagnosis [...] advised her to continue to work with disk grinder for DM management. She has no evidence of proteinuria. Continue current dose of losartan for renal protection. Continue Jardiance and Kerendia Nov, Vitamin D deficiency (ICD-10 - E55.9) Her calcium and vitamin D are within the goal. Continue oral vitamin D. [employer] Other 05-02-2023 Evaluation note* Encounter Date Diagnosis Assessment Notes Treatment Notes Treatment Clinical Notes September, Dyspnea (ICD-10 - R06.00) September, Lymphadenopathy (ICD-10 - R59.1) September, Rhinitis (ICD-10 - J31.0) [employer] Other 04-27-2023 Evaluation note* Encounter Date Diagnosis [...] advised her to continue to work with disk grinder for DM management. She has no evidence of proteinuria. Continue current dose of losartan for renal protection. Continue Jardiance and Kerendia Aug, Vitamin D deficiency (ICD-10 - E55.9) Her calcium and vitamin D are within the goal. Continue oral vitamin D. [employer] Other 03-13-2023 Evaluation note* Encounter Date Diagnosis [...] advised her to continue to work with disk grinder for DM management. She has no evidence of proteinuria. Continue current dose of losartan for renal protection. Continue Jardiance and Kerendia Jul, Vitamin D deficiency (ICD-10 - E55.9) Her calcium and vitamin D are within the goal. Continue oral vitamin D. [employer] Other 01-04-2023 Evaluation note* Encounter Date Diagnosis Assessment Notes Treatment Notes Treatment Clinical Notes May, Type 2 diabetes mellitus with diabetic chronic kidney disease (ICD-10 - E11.22) [employer] Other 10-31-2022 Evaluation note* Encounter Date Diagnosis Assessment Notes Treatment Notes Treatment Clinical Notes Feb, Dyspnea (ICD-10 - R06.00) 31 Feb, 2022 Lymphadenopathy (ICD-10 - R59.1) [employer] Other 10-20-2022 Evaluation note* Encounter Date Diagnosis [...] advised her to continue to work with disk grinder for DM management. She has no evidence of proteinuria. Continue current dose of losartan for renal protection. She will be benefit with SGLT2 inhibitors including Farxiga and Jardiance. Advised to discuss with endocrine Feb, Vitamin D deficiency (ICD-10 - E55.9) Her calcium and vitamin D are within the goal. Continue oral vitamin D. [employer] Other 06-21-2022 Evaluation note* Encounter Date Diagnosis [...] advised her to continue to work with disk grinder for DM management. She has no evidence of proteinuria. Continue current dose of losartan for renal protection Oct, Vitamin D deficiency (ICD-10 - E55.9) Her calcium and vitamin D are within the goal. Continue oral vitamin D. [employer] Other 05-31-2022 Evaluation note* Encounter Date Diagnosis Assessment Notes Treatment Notes Treatment Clinical Notes September, Dyspnea (ICD-10 - R06.00) September, Lymphadenopathy (ICD-10 - R59.1) [employer] Other 12-15-2021 Evaluation note* Encounter Date Diagnosis [...] advised her to continue to work with disk grinder for DM management. She has no evidence of proteinuria. Continue current dose of losartan for renal protection Apr, Vitamin D deficiency (ICD-10 - E55.9) Her calcium and vitamin D are within the goal. Continue oral vitamin D. [employer] Other 11-29-2021 Evaluation note* Encounter Date Diagnosis Assessment Notes Treatment Notes Treatment Clinical Notes Mar, Dyspnea (ICD-10 - R06.00) [employer] Other Evaluation noteN/ADept. of Dermatology Evaluation noteNo InformationNort Quellan Other Evaluation noteNo assessment information available [facility] Work Phone: Evaluation note* Diagnosis Furuncle- Primary Carbuncle and furuncle of unspecified site Melanocytic nevus, unspecified location Lentigo Other dyschromia Hemangioma of other sites Seborrheic keratosis Scar conditions and fibrosis of skin Scar condition and fibrosis of skin Personal history of malignant melanoma of skin documented in this encounter [facility] Work Phone: Evaluation note* Diagnosis Onset Date Resolution Status CKD (chronic kidney disease) stage 4, GFR 15-29 ml/min acute Hyperlipidemia acute [id number] acute Nephrolithiasis, uric acid a cute Type 2 diabetes mellitus wit h diabetic chronic kidney disease acute Vitamin D deficiency acute [facility] Work Phone: Evaluation note* Diagnosis Fissure in [...] fibrosis of skin documented in this encounter [facility] Work Phone: Evaluation note* Diagnosis Onset Date Resolution Status Chronic kidney disease, stage 3 unspecified acute CKD (chronic kidney disease) stage 4, GFR 15-29 ml/min acute Hyperlipidemia acute [id number] acute Nephrolithiasis, uric acid a cute Type 2 diabetes mellitus wit h diabetic chronic kidney disease acute [facility] Work Phone: Evaluation note* Diagnosis Ingrown toenail- Primary Ingrowing nail Left foot pain Pain in soft tissues of limb documented in this encounter [facility]* Diagnosis Primary osteoarthritis of both knees- Primary documented in this encounter [facility]* Diagnosis Ingrown toenail- Primary Ingrowing nail Left foot pain Pain in soft tissues of limb Onychomycosis Dermatophytosis of nail Type 2 diabetes mellitus without complication, without long-term current use of insulin ([facility]) documented in this encounter [facility]* Diagnosis Acute pain of right knee- Primary Primary osteoarthritis of both knees Sore on scalp Diarrhea, unspecified type Morbid (severe) obesity due to excess calories ([facility]) Body mass index (BMI) 50.0-59.9, adult ([facility]) Chronic obstructive pulmonary disease, unspecified ([facility]) Major depressive disorder, recurrent, moderate ([facility]) Major depressive disorder, recurrent episode, moderate Vitreous hemorrhage, unspecified eye ([facility]) documented in this encounter [facility]* Diagnosis Routine general medical examination at health care facility- Primary Routine general medical examination at a health care facility ACP (advance care planning) Other specified counseling Primary osteoarthritis of both knees Sore on scalp documented in this encounter [facility]* Diagnosis Primary osteoarthritis of both knees documented in this encounter [facility]* Diagnosis Ingrown toenail- Primary Ingrowing nail Left foot pain Pain in soft tissues of limb documented in this encounter [facility]* Diagnosis Type 2 diabetes mellitus with hyperglycemia, with long-term current use of insulin ([facility]) [facility]* Diagnosis 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 ([facility])- Primary Chronic obstructive pulmonary disease, unspecified COPD type ([facility]) Primary osteoarthritis of both knees Presence of both artificial knee joints Vitreous hemorrhage, unspecified eye ([facility]) Malignant melanoma of left upper limb, including shoulder ([facility]) Pulmonary hypertension, unspecified ([facility]) Morbid (severe) obesity due to excess calories ([facility]) Body mass index (BMI) 45.0-49.9, adult ([facility]) Type 2 diabetes mellitus with diabetic chronic kidney disease ([facility]) Chronic kidney disease, stage 3b (HCC) ([facility]) Major depressive disorder, recurrent, moderate ([facility]) Major depressive disorder, recurrent episode, moderate documented in this encounter [facility]* Diagnosis Type 2 diabetes mellitus with hyperglycemia, with long-term current use of insulin ([facility])- Primary documented in this encounter [facility]* Diagnosis Type 2 diabetes mellitus with hyperglycemia, with long-term current use of insulin ([facility]) documented in this encounter [facility]* Diagnosis Type 2 diabetes mellitus with hypoglycemia without coma, without long-term current use of insulin ([facility])- Primary documented in this encounter [facility]* Diagnosis Type 2 diabetes mellitus with hyperglycemia, with long-term current use of insulin ([facility])- Primary Primary hypertension Unspecified essential hypertension Mixed hyperlipidemia documented in this encounter [facility]* Diagnosis Type 2 diabetes mellitus with hyperglycemia, with long-term current use of insulin ([facility]) [facility] Diagnosis Type 2 diabetes mellitus with hyperglycemia, with long-term current use of insulin ([facility])- Primary Primary hypertension Unspecified essential hypertension [facility] Diagnosis Type 2 diabetes mellitus with hypoglycemia without coma, without long-term current use of insulin ([facility])- Primary Primary hypertension Unspecified essential hypertension Mixed hyperlipidemia [facility] Diagnosis Type 2 diabetes mellitus with hypoglycemia without coma, without long-term current use of insulin ([facility]) [facility] Diagnosis Tinea cruris- Primary Dermatophytosis of groin and perianal area documented in this encounter [facility] general Narrative - Reported* Type Description Date [...] BLOOD CLOTS IN BOTH LUNG S 2016 [employer] Other [facility]ms[facility] general Narrative - Reported* Type Description Date [...] BLOOD CLOTS IN BOTH LUNG S 2016 [employer] Other Hisaadn general Narrative - Reported* Type Description Date [...] BLOOD CLOTS IN BOTH LUNG S 2016 [employer] Other History general Narrative - Reported* Type [...] BLOOD CLOTS IN BOTH LUNG S 2016 [employer] Other History of Present illness Narrative* Ms. [...] any other skin lesions. She saw her Wound Specialist Dr. Kelley and underwent a biopsy of the left arm lesion which demonstrated a 0.6mm non- ulcerated, no mitoses, melanoma. Total body skin exam was not performed at that time. * Surgery 10/08/2019 - WIde excision left upper arm melanoma * Pathology - No residual neoplasm * 11/27/2020 routine follow-up. The patient continues to follow with Dr. Rzd in dermatology and has had no concerning [...] than it was at my last visit. [facility]: History of Present illness [...] any other skin lesions. She saw her Wound Specialist Dr. Kelley and underwent a biopsy of [...] than it was at my last visit. [facility] Work Phone: History of Present illness Narrative* [...] any other skin lesions. She saw her Wound Specialist Dr. Kelley and underwent a biopsy of [...] was at my last visit. [facility] Work Phone: History of Present illness [...] any other skin lesions. She saw her Wound Specialist Dr. Kelley and underwent a biopsy of [...] biopsies. She is being seen by a Chief Unit Forester for various issues including Left arm swelling. [...] telephone nature of the visit [facility] Work Phone: InstructionsNot on filedocumented in this encounter [employer] SystemInstructionsNot on filedocumented in this encounter [facility] [...] disease) stage 4, GFR 15-29 ml/min Hyperlipidemia [id number] Nephrolithiasis, uric acid Type 2 diabetes mellitus with diabetic chronic kidney disease Vitamin D deficiency Chief Complaint I12.9 N18.30 R60.0 N 20.0 E11.22 E55.9 RENAL 6 month follow up n18.4 e11.22 n20.0i 112.9 Reason for Visit CKD (chronic kidney disease) stage 4, GFR 15-29 ml/min Hyperlipidemia [id number] Nephrolithiasis, uric acid Type 2 diabetes mellitus with diabetic chronic kidney disease Vitamin D deficiency Chief Complaint E11.22 N20.0 E78.5 N 18.4 E55.9 RENAL 4 MONTH F/U Reason for Visit Chronic kidney disea se, stage 3 unspecified CKD (chronic kidney disease) stage 4, GFR 15-29 ml/min Hyperlipidemia [id number] Nephrolithiasis, uric acid Type 2 diabetes mellitus with diabetic chronic kidney disease Reason for Referral Specialty Diagnoses / Procedures Referred By Aleshia quinn Referred To Contact Diagnoses Reyna Bernal MD [address], [address] [address] Referral ID Status Reason Start Date Expiration Date V isits Requested Visits Authorized [id number] Pending Review 1 1 Additional Source Comments INFORMATION SOURCE (unrecogn ized section and content) DATE CREATED AUTHOR 04/12/2018 [facility] DATE CREATED AUTHOR AUTHOR'S ORGANIZ ATION 10/14/2018 [facility] DATE CREATED AUTHOR AUTHOR'S ORGANIZ ATION 11/21/2019 [facility] DATE CREATED AUTHOR AUTHOR'S ORGANIZ ATION 06/21/2021 [facility] DATE CREATED AUTHOR AUTHOR'S ORGANIZ ATION 10/08/2021 [facility] DATE CREATED AUTHOR AUTHOR'S ORGANIZ ATION 09/15/2022 [facility] DATE CREATED AUTHOR AUTHOR'S ORGANIZ ATION 09/05/2023 [facility] DATE CREATED AUTHOR AUTHOR'S ORGANIZ ATION 02/28/2024 [facility] DATE CREATED AUTHOR AUTHOR'S ORGANIZ ATION 04/20/2024 [facility] DATE CREATED AUTHOR AUTHOR'S ORGANIZ ATION 05/27/2024 [facility] DATE CREATED AUTHOR AUTHOR'S ORGANIZ ATION 06/20/2024 [facility] EPIC REASON FOR VISIT (unrecogniz [...] Active Dilan Nguyễn MD Attending Provider Active Spindle Repairer Relationship Specialty Start Date End Date Rajesh Mercer MD [address] [facility] [address] [place] [address] PCP - General 01/03/23 Team Status: Inactive [...] July 21, 2023 End: July 21, 2023 Spindle Repairer Relationship Specialty Start Date End Date Rajesh Mercer MD [address] [facility] [address] [place] [address] PCP - General 01/03/23 Team Status: Inactive [...] November 13, 2023 End: November 13, 2023 Spindle Repairer Relationship Specialty Start Date End Date Rajesh Mercer MD [address] [place] [address] PCP - General Internal Medicine 10/18/22 Rajesh Mercer MD [address] [place] [address] PCP - ACO Reach 07/04/23 Spindle Repairer Relationship Specialty Start Date End Date Rajseh Mercer MD [address] [place] [address] PCP - General Internal Medicine 10/18/22 Rajesh Mercer MD [address] [place] [address] PCP - ACO Reach 07/04/23 Spindle Repairer Relationship Specialty Start Date End Date Rajesh Mercer MD [address] [place] [address] PCP - General Internal Medicine 10/18/22 Rajesh Mercer MD [address] [place] [address] PCP - ACO Reach 07/04/23 Spindle Repairer Relationship Specialty Start Date End Date Rajesh Mercer MD [address] [place] [address] PCP - General Internal Medicine 10/18/22 Rajesh Mercer MD [address] [place] [address] PCP - ACO Reach 07/04/23 Spindle Repairer Relationship Specialty Start Date End Date Rajesh Mercer MD [address] [place] [address] PCP - General Internal Medicine 10/18/22 Rajesh Mercer MD [address] [place] [address] PCP - ACO Reach 07/04/23 Spindle Repairer Relationship Specialty Start Date End Date Rajesh Mercer MD [address] [place] [address] PCP - General Internal Medicine 10/18/22 Rajesh Mercer MD [address] [place] [address] PCP - ACO Reach 07/04/23 Spindle Repairer Relationship Specialty Start Date End Date Rajesh Mercer MD [address] [place] [address] PCP - General Internal Medicine 10/18/22 Rajesh Mercer MD [address] [place] [address] PCP - ACO Reach 07/04/23 Spindle Repairer Relationship Specialty Start Date End Date Rajesh Mercer MD [address] [place] [address] PCP - General Internal Medicine 10/18/22 Rajesh Mercer MD [address] [place] [address] PCP - ACO Reach 07/04/23 Spindle Repairer Relationship Specialty Start Date End Date Rajesh Mercer MD [address] [place] [address] PCP - General Internal Medicine 10/18/22 Rajesh Mercer MD [address] [place] [address] PCP - ACO Reach 07/04/23 Spindle Repairer Relationship Specialty Start Date End Date Rajesh Mercer MD [address] [place] [address] PCP - General Internal Medicine 10/18/22 Rajesh Mercer MD [address] [place] [address] PCP - ACO Reach 07/04/23 Spindle Repairer Relationship Specialty Start Date End Date Rajesh Mercer MD [address] [place] [address] PCP - General Internal Medicine 10/18/22 Rajesh Mercer MD [address] [place] [address] PCP - ACO Reach 07/04/23 Spindle Repairer Relationship Specialty Start Date End Date Rajesh Mercer MD [address] [place] [address] PCP - General Internal Medicine 02/03/20 Spindle Repairer Relationship Specialty Start Date End Date Rajesh Mercer MD [address] [place] [address] PCP - General Internal Medicine 10/18/22 Rajesh Mercer MD [address] [place] [address] PCP - ACO Reach 07/04/23 Corry Rodriguez RN [facility] 06/11/24 Spindle Repairer Relationship Specialty Start Date End Date Rajesh Mercer MD [address] [place] [address] PCP - General Internal Medicine 10/18/22 Rajesh Mercer MD [address] [place] [address] PCP - ACO Reach 07/04/23 Corry Rodriguez, RN [facility] 06/11/24 Spindle Repairer Relationship Specialty Start Date End Date Rajesh Mercer MD [address] [place] [address] PCP - General Internal Medicine 10/18/22 Rajesh Mercer MD [address] [place] [address] PCP - ACO Reach 07/04/23 Corry Rodriguez RN [facility] 06/11/24 Spindle Repairer Relationship Specialty Start Date End Date Rajesh Mercer MD [address] [place] [address] PCP - General Internal Medicine 02/03/20 Spindle Repairer Relationship Specialty Start Date End Date Rajesh Mercer MD [address] [place] [address] PCP - General Internal Medicine 02/03/20 Spindle Repairer Relationship Specialty Start Date End Date Rajesh Mercer MD [address] [place] [address] PCP - General Internal Medicine 02/03/20 Spindle Repairer Relationship Specialty Start Date End Date Rajesh Mercer MD [address] [place] [address] PCP - General Internal Medicine 02/03/20 Spindle Repairer Relationship Specialty Start Date End Date Rajesh Mercer MD [address] [place] [address] PCP - General Internal Medicine 02/03/20 Goals [...] BE BASED ON THE PRIMARY CLINICAL RECORDS. [facility]. provides no warranty or guarantee of the accuracy or completeness of information in this document.
[2024-07-01] MEDS: ACETAMINOPHEN 325 MG TABLET 650 MG PO ×3 (00:48→16:13)
[2024-07-01 06:16] LABS: Basophils Absolute Auto 0.1 10^3/uL (0.0-0.1); Basophils Percent Auto 0.4 % (0.2-2.0); Eosinophils Absolute Auto 0.1 10^3/uL (0.0-0.7); Eosinophils Percent Auto 0.6 % (0.9-7.0); Hematocrit 39.7 % (36.0-48.0); Hemoglobin 13.1 g/dL (12.0-16.0); Immature Granulocytes Abs Auto 0.07 10^3/uL (0.00-0.03); Immature Granulocytes Pct Auto 0.6 % (0.0-0.5); Lymphocytes Absolute Auto 0.9 10^3/uL (1.2-3.8); Lymphocytes Percent Auto 6.8 % (20.5-60.0); Mean Corpuscular Hemoglobin 29.3 pg (26.7-34.0); Mean Corpuscular Volume 88.8 fL (81.0-99.0); Mean Platelet Volume 9.8 fL (9.5-13.5); Monocytes Absolute Auto 0.8 10^3/uL (0.3-0.8); Monocytes Percent Auto 6.3 % (1.7-12.0); Neutrophils Absolute Auto 10.7 10^3/uL (1.4-6.5); Neutrophils Percent Auto 85.3 % (43.0-75.0); Platelet Count 261 10^3/uL (150-450); Red Blood Count 4.47 10^6/uL (4.20-5.40); Red Cell Distribution Width 15.1 % (11.0-15.0); White Blood Count 12.5 10^3/uL (4.0-11.0)
[2024-07-01 06:33] LABS: Alanine Aminotransferase 19 U/L (14-59); Albumin Globulin Ratio 0.8; Albumin Level 2.7 g/dL (3.4-5.0); Alkaline Phosphatase 47 U/L (46-116); Anion Gap 15.7; Aspartate Amino Transferase 19 U/L (15-37); BUN Creatinine Ratio 15.3; Bilirubin Total 0.5 mg/dL (0.2-1.0); Calcium 8.6 mg/dL (8.5-10.1); Carbon Dioxide 21.8 mmol/L (21.0-32.0); Chloride 103 mmol/L (98-107); Estimated GFR (African America 43 (>=60 mL/min/1.73m^2); Estimated GFR (Non-African Ame 36 (>=60 mL/min/1.73m^2); Globulin 3.6 g/dL; Glucose 149 mg/dL (74-106); Magnesium 1.8 mg/dL (1.8-2.4); Potassium 3.5 mmol/L (3.5-5.1); Sodium 137 mmol/L (136-145); Total Protein 6.3 g/dL (6.4-8.2)
[2024-07-01] MEDS: APIXABAN 5 MG TABLET PO ×2 (08:27→21:20)
[2024-07-01] MEDS: FUROSEMIDE 20 MG TABLET PO (08:27)
[2024-07-01] MEDS: VERAPAMIL HCL ER 240 MG TABLET PO (08:27)
[2024-07-01] MEDS: LOSARTAN POTASSIUM 50 MG TABLET 100 MG PO (08:27)
[2024-07-01] MEDS: VITS A,C,E/LUTEIN/MINERALS 1 TABLET 1 TAB PO ×2 (08:27→21:20)
[2024-07-01] MEDS: ALLOPURINOL 100 MG TABLET PO (08:28)
--- NOTE | 2024-07-01 08:58 | P.HP_ITS ---
HPI H&P: HPI History of Present Illness Chief complaint: SEPSIS Narrative: Patient is a 74 y.o white female with past medial history of Insulin dep type 2 diabetes, HLD, Chronic Congestive Heart failure, unknown type, Gout, COPD, HTN, Migraine headaches, GERD, AFib, CKD who presented to the ER last night with a fever of 102, chills, bodyaches, weakness and decreased appetite. She denied cough, sore throat, nasal congestion, shortness of breath or chest pain. Also no n/v/d. Patient was admitted about a month ago for Sepsis that was found to be from pneumonia? and possible colitis and was treated with levaquin. She had a positive blood culture for Shaalia tuv, a gram positive cocci. She denies sick contacts. She has history of kidney stones about 10 years ago and was placed on gout medications for this. ER findings: UA was positive and sent for culture. Chest X-ray showed no acute findings, WBC's elevated 12.5, lactate 2.2, Cr 1.44; Sepsis protocol initiated for tachycardia, elevated lactate, fever. CT fidings of non obstructive bilateral renal calculi, largest in lower pole of left kidney, no hydronephrosis, Calculus in the urinary bladder 5mm, Enlarged uterus for age, recommend ultrasound; and Right hepatic lesion 2.8 x 3.2cm indeterminate and recommend MRI Liver. patient's and granddaughter were present on admission exam. All findings of the CT scan discussed with patient and family. We will preceed with MRI liver/abdomen and bladder ultrasound. Uterine ultrasound will get set up as outpatient. Opioid HPI Opioid Management Most Recent Pain and Opioid Data: Last Pain Scale 5 07/01/24 10:08 07/01/24 Last Pain Intensity 2 06/01/24 15:25 06/01/24 Last Pain Assessment 07/01/24 13:07 Last MAR Pain Assessment 07/01/24 09:59 Last ORT Total Score 0 07/01/24 00:09 07/01/24 Last ORT Risk Category Low Risk 07/01/24 00:09 07/01/24 Review of Systems ROS Narrative ROS: a complete review of systems were reviewed with patient and are positive as below or listed in History of Chief Complaint. General: fever, chills, night sweats Head: no headache, trauma, visual changes, nausea or vomiting Skin: no reported rashes, itching or sores Eyes: no blurriness of vision Ears: no reported hearing loss, vertigo, earache, or tinnitus Throat: no sore throat, hoarseness, swelling of neck, or tongue pain Heart: no chest pain Lungs: no shortness of breath or cough GI: no diarrhea or vomiting/nausea Urinary: no urinary urgency, frequency or pain Neuro: no numbness or tingling HEM: no bleeding issues or bruising ENDO: no thyroid problems Psych: no anxiety or depression [facility] Medical History (Updated 07/01/24 @ 13:19 by Sanjana Walden DO) GERD without esophagitis ?K21.9 - Gastro-esophageal reflux disease without esophagitis (ICD-10) Chronic a-fib ?I48.20 - Chronic atrial fibrillation, unspecified (ICD-10) Acute urinary retention ?R33.8 - Other retention of urine (ICD-10) SIRS (systemic inflammatory response syndrome) ?R65.10 - Systemic inflammatory response syndrome (SIRS) of non-infectious origin without acute organ dysfunction (ICD-10) Fever ?R50.9 - Fever, unspecified (ICD-10) Generalized weakness ?R53.1 - Weakness (ICD-10) Obesity ?E66.9 - Obesity, unspecified (ICD-10) Macular degeneration ?H35.30 - Unspecified macular degeneration (ICD-10) Occasional tremors ?R25.1 - Tremor, unspecified (ICD-10) Asthma ?J45.909 - Unspecified asthma, uncomplicated (ICD-10) HTN (hypertension) ?I10 - Essential (primary) hypertension (ICD-10) Blood clot in vein ?I82.90 - Acute embolism and thrombosis of unspecified vein (ICD-10) Kidney disease ?N28.9 - Disorder of kidney and ureter, unspecified (ICD-10) Diabetes ?E11.9 - Type 2 diabetes mellitus without complications (ICD-10) Surgical History History of cataract surgery ?Z98.49 - Cataract extraction status, unspecified eye (ICD-10) History of tonsillectomy ?Z90.89 - Acquired absence of other organs (ICD-10) History of knee replacement (Unknown) ?Z96.659 - Presence of unspecified artificial knee joint (ICD-10) Hx of cholecystectomy ?Z90.49 - Acquired absence of other specified parts of digestive tract (ICD- 10) Family History Father Family history of CHF (congestive heart failure) Family history of cancer Family history of myocardial infarction Mother Family history of diabetes mellitus Family history of hypertension Family history of myocardial infarction Family history of stroke Social History Within the past year, how often did you have a drink containing alcohol: never Score interpretation: A score less than 3 is consistent with normal alcohol consumption. Smoking status: Former smoker Non-prescribed substance use: denies use Previous occupational history: retired Highest level of school completed/degree received: some college, no degree Are you now , , , , never or living with a partner: In a typical week, how many times do you talk on the telephone with family, friends, or neighbors: 3 or more times per week How often do you get together with friends or relatives: once per week How often do you attend lutheran or islam services: never Do you belong to any clubs or organizations such as lutheran groups unions, [employer] or athletic groups, or school groups: no Total score: 2 Score interpretation: A score of greater than or equal to 2 indicates the lowest level of social isolation. Little interest or pleasure in doing things: not at all Feeling down, depressed, or hopeless: not at all Feel stressed/tense/nervous/anxious/difficulty sleeping: not at all Do you think of yourself as: straight/heterosexual Gender Identity: female Meds Home Medications and Allergies Home Medications ?Medication ?Instructions ?Recorded ?Confirmed ?Type allopurinol 100 mg tablet 100 mg PO DAILY 05/31/24 06/30/24 History apixaban 5 mg tablet (Eliquis) 5 mg PO BID 05/31/24 06/30/24 History biotin 2,500 mcg capsule 2.5 mg PO DAILY 05/31/24 06/30/24 History fenofibrate nanocrystallized 145 145 mg PO QDAY 05/31/24 06/30/24 History mg tablet finerenone 20 mg tablet (Kerendia) 20 mg PO DAILY 05/31/24 06/30/24 History fluticasone furoate 200 1 inh inhalation DAILY 05/31/24 06/30/24 History mcg-vilanterol 25 mcg/dose inhalation powder (Breo Ellipta) furosemide 20 mg tablet 20 mg PO DAILY 05/31/24 06/30/24 History insulin aspart U-100 100 unit/mL 50 unit subcut Q12H 05/31/24 05/31/24 History (3 mL) subcutaneous pen (Novolog FlexPen U-100 Insulin aspart) insulin degludec 200 unit/mL (3 70 unit subcut Q12H 05/31/24 05/31/24 History mL) subcutaneous pen (Tresiba FlexTouch U-200 insulin) loperamide 2 mg capsule 2 mg PO Q6H PRN loose stool 05/31/24 06/30/24 History losartan 100 mg tablet 100 mg PO DAILY 05/31/24 06/30/24 History omeprazole 20 mg capsule,delayed 20 mg PO DAILY 05/31/24 06/30/24 History release semaglutide 1 mg/dose (4 mg/3 mL) 1 mg subcut .week 05/31/24 06/30/24 History subcutaneous pen injector (Ozempic) topiramate 50 mg tablet 50 mg PO Q12H 05/31/24 06/30/24 History tramadol 50 mg tablet 50 mg PO Q6H PRN pain 05/31/24 06/30/24 History verapamil 240 mg 24 hr 240 mg PO DAILY 05/31/24 06/30/24 History capsule,extended release vit C 250 mg-vit E 90 mg-zinc 40 1 tab PO BID 05/31/24 06/30/24 History mg-copper 1 wm-xaeuxj-oivcfj capsule (PreserVision AREDS-2) albuterol sulfate 2.5 mg/3 mL 2.5 mg inhalation Q4H PRN 06/30/24 06/30/24 History (0.083 %) solution for nebulization shortness of breath or wheezing Allergies Allergy/AdvReac Type Severity Reaction Status Date / Time doxycycline AdvReac Severe Nausea Verified 05/31/24 17:26 Exam Narrative Exam Narrative: General: Patient is alert, and oriented to person, place and time with normal affect, proper hygiene Skin: no visible rashes, or ulcers Head: atraumatic, acephalic Eyes: PERRLA, no nystagmus present, conjunctiva clear, no scleral icterus Nose: symmetric, no discharge, no maxillary or frontal sinus tenderness Mouth/Throat: no erythema, exudate, or tonsillar enlargement, normal dentition Neck: no masses palpated, normal thyroid, no JVD or audible carotid bruits Heart: Normal rate and rhythm, no murmurs/rubs/gallops Lungs: no audible wheezes, crackles and normal breath sounds all lung briceño Abdomen: Normal audible bowel sounds, no distension, No palpable masses, no organomegaly, no rebound/guarding/ or rigidity Musculoskeletal: no swelling bilateral lower extremities Neuro: CN II-X grossly intact Constitutional Vital Signs, click to edit/add: Last Vital Signs Temp 99.1 F 07/01/24 07:26 Pulse 85 07/01/24 08:00 Resp 18 07/01/24 07:59 BP 135/77 07/01/24 07:26 Pulse Ox 93 L 07/01/24 07:26 O2 Del Method Room Air 07/01/24 07:26 Results Labs Labs: Short CBC 06/30/24 07/01/24 Range/Units 20:20 06:06 WBC 12.4 H 12.5 H (4.0-11.0) 10^3/uL Hgb 14.8 13.1 (12.0-16.0) g/dL Hct 45.6 39.7 (36.0-48.0) % Plt Count 294 261 (150-450) 10^3/uL BMP 06/30/24 07/01/24 20:20 06:06 Sodium 136 137 Potassium 3.4 L 3.5 Chloride 103 103 Carbon Dioxide 23.9 21.8 BUN 25.0 H 22.0 H Creatinine 1.65 H 1.44 H Glucose 117 H 149 H Calcium 9.4 8.6 Liver Function 06/30/24 07/01/24 Range/Units 20:20 06:06 Total Bilirubin 0.4 0.5 (0.2-1.0) mg/dL AST 20 19 (15-37) U/L ALT 16 19 (14-59) U/L Alkaline Phosphatase 56 47 (46-116) U/L Albumin 3.4 2.7 L (3.4-5.0) g/dL Urine 06/30/24 Range/Units 21:50 Urine Color Lt. yellow (YELLOW) Urine Clarity Clear (CLEAR) Urine pH 6.0 (5.0-9.0) Ur Specific [place] 1.010 (1.005-1.025) Urine Protein Negative (NEG/TRACE) mg/dL Urine Glucose (UA) Negative (NEGATIVE) mg/dL ABG ABG results: 06/30/24 20:20 VBG pH 7.437 H VBG pCO2 31.5 L Assessment and Plan Assessment and Plan (1) Sepsis: Assessment and Plan: Patient with leukocytosis, Tachycardia, fever, and lactic acidosis; Received IVF bolus in the ER, lactate this morning 1.8. Rocephin started for UTI cause. blood and urine cultures pending. Qualifiers: Sepsis acute organ dysfunction status: without acute organ dysfunction Sepsis type: sepsis due to unspecified organism Qualified Code(s): A41.9 - Sepsis, unspecified organism (2) UTI (urinary tract infection): Assessment and Plan: Bladder stone seen on CT, UA positive and sent for culture. Continue rocephin. Will order bladder ultrasound to further characterize the bladder stone. Qualifiers: Hematuria presence: without hematuria Urinary tract infection type: acute cystitis Qualified Code(s): N30.00 - Acute cystitis without hematuria (3) Kidney disease: Assessment and Plan: continue KErendia, renally dose medications. 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 insulin use: with correction use Diabetes mellitus type: type 2 Qualified Code(s): E11.22 - Type 2 diabetes mellitus with diabetic chronic kidney disease; Z79.4 - nursing home (current) use of insulin (5) HTN (hypertension): Assessment and Plan: continue losartan Qualifiers: Hypertension type: secondary to endocrine disorders Qualified Code(s): I15.2 - Hypertension secondary to endocrine disorders (6) Obesity: Assessment and Plan: would benefit from weight reduction Qualifiers: Body mass index: BMI 45.0-49.9 Obesity classification: adult class 3 (BMI >= 40) Obesity type: due to excess calories Serious obesity comorbidity presence: with serious comorbidity Qualified Code(s): E66.813 - Obesity, class 3; E66.01 - Morbid (severe) obesity due to excess calories; Z68.42 - Body mass index [BMI] 45.0-49.9, adult (7) Macular degeneration: Qualifiers: Eye laterality: unspecified Macular degeneration type: unspecified type Qualified Code(s): H35.30 - Unspecified macular degeneration (8) Chronic a-fib: Assessment and Plan: continue eliquis (9) GERD without esophagitis: Assessment and Plan: contiue PPI (10) Liver lesion, right lobe: Assessment and Plan: as seen on CT, Will get MRI (11) Enlarged uterus: Assessment and Plan: Will need followed up outpatient with ultrasound (12) Asthma: Assessment and Plan: continue inhalers Qualifiers: Asthma severity: unspecified severity Asthma persistence: unspecified Asthma complication type: unspecified Qualified Code(s): J45.909 - Unspecified asthma, uncomplicated Plan patient is a full code Continue Eliquis Patient is inpatient status and is expected to cross 2 midnights to treat her sepsis.
[2024-07-01] MEDS: ALBUTEROL SULFATE 2.5 MG/3 ML VIAL NEB IH ×3 (10:28→20:22)
[2024-07-01] MEDS: BUDESONIDE 0.5 MG/2 ML AMPULE NEB IH ×2 (10:28→20:23)
--- NOTE | 2024-07-01 12:02 | CM.NOTE ---
Rounds made with Dr. Walden. Dr. Walden reviews plan of care with Ms. Meyer and family. Understanding verbalized.
[2024-07-01 12:37] LABS: Glucometer 257 mg/dL (74-106)
[2024-07-01] MEDS: FINERENONE 20 MG 20 EACH PO (12:45)
--- NOTE | 2024-07-01 12:48 | MR_ITS ---
The [address] [address] Patient Name: CHLOE PICKENS MRN: [id number] date: 1950 Sex: F Assigned Patient Location: [place] Current Patient Location: [place] Accession/Order Number: [id number] Exam Date: 07/01/2024 15:43 Report Date: 07/01/2024 15:48 At the request of: CORNELIA DARNELL DO Procedure: MR abdomen wo con MRI OF THE ABDOMEN WITHOUT CONTRAST: CLINICAL HISTORY: Hepatic lesion noted on CT scan from 07/01/24 COMPARISON: CT abdomen and pelvis 07/01/2024 TECHNIQUE: Multisequence, multiplanar imaging of the abdomen was obtained without the use of IV contrast. FINDINGS: Suboptimal evaluation due to lack of IV contrast. The liver appears normal in contour without evidence of steatosis or intrahepatic ductal dilatation. A T2 hyperintense lesion is seen involving segment 8 of the liver as seen on the prior CT study measuring 3.1 cm in greatest axial dimension. Gallbladder has been removed. No CBD dilatation. Spleen pancreas and adrenal glands all appear unremarkable. Kidneys demonstrate no hydronephrosis. Abdominal aorta appears normal in caliber. No bulky lymphadenopathy or ascites. No pleural effusion. MR/MR abdomen wo con IMPRESSION: 3.1 CM T2 HYPERINTENSE LESION IS SEEN INVOLVING SEGMENT 8 OF THE LIVER SIMILAR IN SIZE TO THE PRIOR CT STUDY. EVALUATION IS SUBOPTIMAL DUE TO LACK OF IV CONTRAST. FINDING IS NONSPECIFIC. GIVEN THE HISTORY OF CHRONIC KIDNEY DISEASE, COMPLETE EVALUATION WITH MULTIPHASE LIVER CT WITH AND WITHOUT IV CONTRAST IS RECOMMENDED. Impression dictated by: Gianfranco Logan Jr. DMarsOMars07/01/2024 3:48 PM Dictation Location: [place] [address] Electronically authenticated by: [id number] Y Date: 07/01/2024 15:48
--- NOTE | 2024-07-01 13:49 | SWNOTE1 ---
Important Message from Medicare reviewed and discussed with patient. Pt. verbalized understanding and signed the form. Original given to patient and copy placed in patient?s chart.
--- NOTE | 2024-07-01 13:50 | SWNOTE1 ---
SW met with pt to discuss dc needs. Pt's , daughter, and grand-daughter in room as well. Pt voiced she is doing well at home. Pt does not use any DME at home. Her helps her as needed and he does the cleaning and cooking. Pt has no services coming in at this time. Pt voiced no concerns about discharge. No anticipated discharge needs at this time. SW to follow as needed.
[2024-07-01 17:15] LABS: Glucometer 330 mg/dL (74-106)
[2024-07-01] MEDS: INSULIN ASPART 300 UNIT/3 ML PEN SUBQ ×2 (17:21→21:18)
[2024-07-01] MEDS: OMEPRAZOLE 20 MG CAPSULE.DR PO (17:21)
[2024-07-01] MEDS: INSULIN GLARGINE 300 UNIT/3 ML INSULN.PEN 30 UNIT SQ (21:20)
[2024-07-01] MEDS: CEFTRIAXONE 2,000 MG in 0.9 % SODIUM CHLORIDE 100 ML 200 MG IV (21:20)
[2024-07-01] MEDS: TOPIRAMATE 25 MG TABLET 50 MG PO (22:46)
[2024-07-02] VITALS (23 sets, daily range): BP systolic 130–152; BP diastolic 66–88; PULSE 70–85; TEMP 36.6–37.2; O2SAT 92–97; BMI 47.3
[2024-07-02] MEDS: ALBUTEROL SULFATE 2.5 MG/3 ML VIAL NEB IH ×3 (05:02→21:02)
[2024-07-02 05:43] LABS: Basophils Absolute Auto 0.1 10^3/uL (0.0-0.1); Basophils Percent Auto 0.7 % (0.2-2.0); Eosinophils Absolute Auto 0.3 10^3/uL (0.0-0.7); Eosinophils Percent Auto 3.8 % (0.9-7.0); Hematocrit 38.5 % (36.0-48.0); Hemoglobin 12.6 g/dL (12.0-16.0); Immature Granulocytes Abs Auto 0.05 10^3/uL (0.00-0.03); Immature Granulocytes Pct Auto 0.7 % (0.0-0.5); Lymphocytes Absolute Auto 1.3 10^3/uL (1.2-3.8); Mean Corpuscular HGB Conc 32.7 g/dL (29.9-35.2); Mean Corpuscular Hemoglobin 29.5 pg (26.7-34.0); Mean Corpuscular Volume 90.2 fL (81.0-99.0); Monocytes Absolute Auto 0.8 10^3/uL (0.3-0.8); Monocytes Percent Auto 11.7 % (1.7-12.0); Neutrophils Absolute Auto 4.7 10^3/uL (1.4-6.5); Neutrophils Percent Auto 65.1 % (43.0-75.0); Platelet Count 249 10^3/uL (150-450); Red Blood Count 4.27 10^6/uL (4.20-5.40); Red Cell Distribution Width 15.3 % (11.0-15.0); White Blood Count 7.2 10^3/uL (4.0-11.0)
[2024-07-02] MEDS: ACETAMINOPHEN 325 MG TABLET 650 MG PO ×3 (05:49→21:44)
[2024-07-02] MEDS: OMEPRAZOLE 20 MG CAPSULE.DR PO (05:50)
[2024-07-02 06:04] LABS: Alanine Aminotransferase 19 U/L (14-59); Albumin Globulin Ratio 0.8; Albumin Level 2.7 g/dL (3.4-5.0); Alkaline Phosphatase 43 U/L (46-116); Anion Gap 13.7; Aspartate Amino Transferase 19 U/L (15-37); BUN Creatinine Ratio 17.4; Bilirubin Total 0.3 mg/dL (0.2-1.0); Calcium 8.8 mg/dL (8.5-10.1); Carbon Dioxide 22.9 mmol/L (21.0-32.0); Chloride 105 mmol/L (98-107); Estimated GFR (African America 45 (>=60 mL/min/1.73m^2); Estimated GFR (Non-African Ame 37 (>=60 mL/min/1.73m^2); Globulin 3.6 g/dL; Glucose 229 mg/dL (74-106); Potassium 3.6 mmol/L (3.5-5.1); Sodium 138 mmol/L (136-145); Total Protein 6.3 g/dL (6.4-8.2)
[2024-07-02] MEDS: INSULIN ASPART 300 UNIT/3 ML PEN SUBQ ×3 (07:44→21:49)
--- NOTE | 2024-07-02 08:01 | PM.PN ---
Progress Note: Subjective Subjective Interval history: Discussed MRI findings with patient. 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 She said sometimes they see it on imaging, sometimes not but it has been investigated by a doctor in [place] in the past. She is suspicious that this is what they see and I told her i would agree. I also discussed ultrasound of the bladder which showed 0.8cm calculus in the bladder. I discussed that this stone may be the source of the infection that she keep presenting with. WBC's are back to normal, Patient has been afebrile. Will continue the Rocephin IV today. I discussed with her getting her Urology follow up appointment to discuss the bladder stone. I do not see Emergent need for Consult or surgery at this time. This would be if she does not pass the stone. We also discussed her home insulin regimen today, I will resume home Long acting dose of 50 units BID and 1/2 the short acting to 30 units BID along with our SSI. Exam Narrative Exam Narrative: General: Patient is alert, and oriented to person, place and time with normal affect, proper hygiene Skin: no visible rashes, or ulcers Head: atraumatic, acephalic Eyes: PERRLA, no nystagmus present, conjunctiva clear, no scleral icterus Nose: symmetric, no discharge, no maxillary or frontal sinus tenderness Mouth/Throat: no erythema, exudate, or tonsillar enlargement, normal dentition Neck: no masses palpated, normal thyroid, no JVD or audible carotid bruits Heart: Normal rate and rhythm, no murmurs/rubs/gallops Lungs: no audible wheezes, crackles and normal breath sounds all lung briceño Abdomen: Normal audible bowel sounds, no distension, No palpable masses, no organomegaly, no rebound/guarding/ or rigidity Musculoskeletal: no swelling bilateral lower extremities Neuro: CN II-X grossly intact Constitutional Vital Signs, click to edit/add: Last Vital Signs Temp 98.9 F 07/02/24 07:44 Pulse 78 07/02/24 07:53 Resp 20 07/02/24 07:44 BP 130/66 07/02/24 07:44 Pulse Ox 92 L 07/02/24 07:44 O2 Del Method Room Air 07/02/24 07:44 Progress Note: Objective Labs Labs: Short CBC 07/02/24 Range/Units 05:20 WBC 7.2 (4.0-11.0) 10^3/uL Hgb 12.6 (12.0-16.0) g/dL Hct 38.5 (36.0-48.0) % Plt Count 249 (150-450) 10^3/uL BMP 07/02/24 05:20 Sodium 138 Potassium 3.6 Chloride 105 Carbon Dioxide 22.9 BUN 24.0 H Creatinine 1.38 H Glucose 229 H Calcium 8.8 Liver Function 07/02/24 Range/Units 05:20 Total Bilirubin 0.3 (0.2-1.0) mg/dL AST 19 (15-37) U/L ALT 19 (14-59) U/L Alkaline Phosphatase 43 L (46-116) U/L Albumin 2.7 L (3.4-5.0) g/dL Progress Note: A&P Assessment and Plan (1) Sepsis: Assessment and Plan: Patient with leukocytosis, Tachycardia, fever, and lactic acidosis; Received IVF bolus in the ER, lactate down to 1.8. Rocephin started for UTI cause. blood and urine cultures pending. Qualifiers: Sepsis acute organ dysfunction status: without acute organ dysfunction Sepsis type: sepsis due to unspecified organism Qualified Code(s): A41.9 - Sepsis, unspecified organism (2) UTI (urinary tract infection): Assessment and Plan: Bladder stone seen on CT and US, UA positive and sent for culture. Continue rocephin. Qualifiers: Hematuria presence: without hematuria Urinary tract infection type: acute cystitis Qualified Code(s): N30.00 - Acute cystitis without hematuria (3) Kidney disease: Assessment and Plan: continue KErendia, renally dose medications. 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 use Diabetes mellitus type: type 2 Qualified Code(s): E11.22 - Type 2 diabetes mellitus with diabetic chronic kidney disease; Z79.4 - jail (current) use of insulin (5) HTN (hypertension): Assessment and Plan: continue losartan Qualifiers: Hypertension type: secondary to endocrine disorders Qualified Code(s): I15.2 - Hypertension secondary to endocrine disorders (6) Obesity: Assessment and Plan: would benefit from weight reduction Qualifiers: Body mass index: BMI 45.0-49.9 Obesity classification: adult class 3 (BMI >= 40) Obesity type: due to excess calories Serious obesity comorbidity presence: with serious comorbidity Qualified Code(s): E66.813 - Obesity, class 3; E66.01 - Morbid (severe) obesity due to excess calories; Z68.42 - Body mass index [BMI] 45.0-49.9, adult (7) Macular degeneration: Qualifiers: Eye laterality: unspecified Macular degeneration type: unspecified type Qualified Code(s): H35.30 - Unspecified macular degeneration (8) Chronic a-fib: Assessment and Plan: continue eliquis (9) GERD without esophagitis: Assessment and Plan: contiue PPI (10) Liver lesion, right lobe: Assessment and Plan: as seen on CT, and MRI; patient reports she has had it investigated prior and it's benign (11) Enlarged uterus: Assessment and Plan: Will need followed up outpatient with ultrasound (12) Asthma: Assessment and Plan: continue inhalers Qualifiers: Asthma complication type: unspecified Asthma persistence: unspecified Asthma severity: unspecified severity Qualified Code(s): J45.909 - Unspecified asthma, uncomplicated Plan patient is a full code Continue Eliquis Awaiting culture results, Hopeful discharge home tomorrow with close urology follow up
[2024-07-02] MEDS: INSULIN GLARGINE 300 UNIT/3 ML INSULN.PEN 30 UNIT SQ (08:31)
[2024-07-02] MEDS: FUROSEMIDE 20 MG TABLET PO (08:32)
[2024-07-02] MEDS: VITS A,C,E/LUTEIN/MINERALS 1 TABLET 1 TAB PO ×2 (08:32→21:45)
[2024-07-02] MEDS: APIXABAN 5 MG TABLET PO ×2 (08:32→21:44)
[2024-07-02] MEDS: FENOFIBRATE 54 MG TABLET 162 MG PO (08:32)
[2024-07-02] MEDS: LOSARTAN POTASSIUM 50 MG TABLET 100 MG PO (08:32)
[2024-07-02] MEDS: VERAPAMIL HCL ER 240 MG TABLET PO (08:32)
[2024-07-02] MEDS: ALLOPURINOL 100 MG TABLET PO (08:33)
[2024-07-02] MEDS: FINERENONE 20 MG 20 EACH PO (08:33)
--- NOTE | 2024-07-02 09:23 | CM.NOTE ---
Rounds made with Dr. Walden, continue IV antibiotics and possible discharge to home tomorrow. Dr. Walden will reorder home insulin long acting dose and cut short acting to half dose d/t decreased appetite.
[2024-07-02] MEDS: INSULIN ASPART 300 UNIT/3 ML PEN 30 UNIT SUBQ ×2 (09:55→21:48)
[2024-07-02] MEDS: BUDESONIDE 0.5 MG/2 ML AMPULE NEB IH ×2 (10:48→21:02)
[2024-07-02] MEDS: TOPIRAMATE 25 MG TABLET 50 MG PO ×2 (11:46→21:45)
--- NOTE | 2024-07-02 17:49 | DIETREC ---
Recommend 1800 kcal CCD diet for control of IDDM and weight.
[2024-07-02] MEDS: CEFTRIAXONE 2,000 MG in 0.9 % SODIUM CHLORIDE 100 ML 200 MG IV (21:44)
[2024-07-02] MEDS: INSULIN GLARGINE 300 UNIT/3 ML INSULN.PEN 48 UNIT SQ (21:47)
[2024-07-03] VITALS: PULSE 77
[2024-07-03 01:58] VITALS: PULSE 72
[2024-07-03 04:00] VITALS: BP 127/72; PULSE 70; PULSE 73; TEMP 36.7; O2SAT 94
[2024-07-03] MEDS: OMEPRAZOLE 20 MG CAPSULE.DR PO (05:58)
[2024-07-03] MEDS: ACETAMINOPHEN 325 MG TABLET 650 MG PO (05:59)
[2024-07-03 06:00] VITALS: PULSE 71
[2024-07-03 06:17] LABS: Basophils Absolute Auto 0.1 10^3/uL (0.0-0.1); Basophils Percent Auto 0.8 % (0.2-2.0); Eosinophils Absolute Auto 0.4 10^3/uL (0.0-0.7); Eosinophils Percent Auto 5.3 % (0.9-7.0); Hemoglobin 13.6 g/dL (12.0-16.0); Immature Granulocytes Abs Auto 0.06 10^3/uL (0.00-0.03); Immature Granulocytes Pct Auto 0.8 % (0.0-0.5); Lymphocytes Absolute Auto 2.3 10^3/uL (1.2-3.8); Lymphocytes Percent Auto 30.5 % (20.5-60.0); Mean Corpuscular HGB Conc 32.4 g/dL (29.9-35.2); Mean Corpuscular Hemoglobin 29.6 pg (26.7-34.0); Mean Corpuscular Volume 91.5 fL (81.0-99.0); Mean Platelet Volume 9.8 fL (9.5-13.5); Monocytes Absolute Auto 0.8 10^3/uL (0.3-0.8); Monocytes Percent Auto 11.1 % (1.7-12.0); Neutrophils Absolute Auto 3.9 10^3/uL (1.4-6.5); Neutrophils Percent Auto 51.5 % (43.0-75.0); Platelet Count 302 10^3/uL (150-450); Red Blood Count 4.59 10^6/uL (4.20-5.40); Red Cell Distribution Width 15.3 % (11.0-15.0); White Blood Count 7.6 10^3/uL (4.0-11.0)
[2024-07-03 06:35] LABS: Alanine Aminotransferase 19 U/L (14-59); Albumin Globulin Ratio 0.7; Alkaline Phosphatase 50 U/L (46-116); Aspartate Amino Transferase 18 U/L (15-37); BUN Creatinine Ratio 17.4; Bilirubin Total 0.3 mg/dL (0.2-1.0); Calcium 9.5 mg/dL (8.5-10.1); Carbon Dioxide 26.6 mmol/L (21.0-32.0); Chloride 107 mmol/L (98-107); Estimated GFR (African America 48 (>=60 mL/min/1.73m^2); Estimated GFR (Non-African Ame 39 (>=60 mL/min/1.73m^2); Globulin 4.1 g/dL; Glucose 104 mg/dL (74-106); Potassium 3.6 mmol/L (3.5-5.1); Sodium 143 mmol/L (136-145); Total Protein 7.1 g/dL (6.4-8.2)
[2024-07-03 07:57] VITALS: BP 138/82; PULSE 68; TEMP 36.6; O2SAT 96
[2024-07-03 08:00] VITALS: PULSE 69
[2024-07-03] MEDS: VERAPAMIL HCL ER 240 MG TABLET PO (08:48)
[2024-07-03] MEDS: ALLOPURINOL 100 MG TABLET PO (08:48)
[2024-07-03] MEDS: APIXABAN 5 MG TABLET PO (08:48)
[2024-07-03] MEDS: VITS A,C,E/LUTEIN/MINERALS 1 TABLET 1 TAB PO (08:48)
[2024-07-03] MEDS: FUROSEMIDE 20 MG TABLET PO (08:48)
[2024-07-03] MEDS: FENOFIBRATE 54 MG TABLET 162 MG PO (08:48)
[2024-07-03] MEDS: LOSARTAN POTASSIUM 50 MG TABLET 100 MG PO (08:48)
[2024-07-03] MEDS: FINERENONE 20 MG 20 EACH PO (08:49)
[2024-07-03] MEDS: INSULIN ASPART 300 UNIT/3 ML PEN 30 UNIT SUBQ (08:50)
[2024-07-03] MEDS: INSULIN GLARGINE 300 UNIT/3 ML INSULN.PEN 48 UNIT SQ (08:51)
[2024-07-03] MEDS: TOPIRAMATE 25 MG TABLET 50 MG PO (09:00)
--- NOTE | 2024-07-03 09:21 | PM.DS1 ---
DS: Providers Provider Date of admission: 07/01/24 00:01 Primary care physician: IVETH MERCER Consults: 07/01/24 Consult to Dietitian Routine Reason for consultation: weight loss DS: Diagnosis Discharge Diagnosis (1) Sepsis: Qualifiers: Sepsis acute organ dysfunction status: without acute organ dysfunction Sepsis type: sepsis due to unspecified organism Qualified Code(s): A41.9 - Sepsis, unspecified organism (2) UTI (urinary tract infection): Qualifiers: Hematuria presence: without hematuria Urinary tract infection type: acute cystitis Qualified Code(s): N30.00 - Acute cystitis without hematuria (3) Kidney disease: (4) Diabetes: Qualifiers: Chronic kidney disease stage: unspecified stage Diabetes mellitus complication detail: with chronic kidney disease Diabetes mellitus complication status: with kidney complications 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 Diabetes mellitus type: type 2 Qualified Code(s): E11.22 - Type 2 diabetes mellitus with diabetic chronic kidney disease; 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 (5) HTN (hypertension): Qualifiers: Hypertension type: secondary to endocrine disorders Qualified Code(s): I15.2 - Hypertension secondary to endocrine disorders (6) Obesity: Qualifiers: Body mass index: BMI 45.0-49.9 Obesity classification: adult class 3 (BMI >= 40) Obesity type: due to excess calories Serious obesity comorbidity presence: with serious comorbidity Qualified Code(s): E66.813 - Obesity, class 3; E66.01 - Morbid (severe) obesity due to excess calories; Z68.42 - Body mass index [BMI] 45.0-49.9, adult (7) Macular degeneration: Qualifiers: Eye laterality: unspecified Macular degeneration type: unspecified type Qualified Code(s): H35.30 - Unspecified macular degeneration (8) Chronic a-fib: (9) GERD without esophagitis: (10) Liver lesion, right lobe: (11) Enlarged uterus: (12) Asthma: Qualifiers: Asthma complication type: unspecified Asthma persistence: unspecified Asthma severity: unspecified severity Qualified Code(s): J45.909 - Unspecified asthma, uncomplicated Plan (1) Sepsis: Assessment and Plan: Patient with leukocytosis, Tachycardia, fever, and lactic acidosis; Received IVF bolus in the ER, lactate down to 1.8. Rocephin started for UTI cause. blood and urine cultures pending. Qualifiers: Sepsis acute organ dysfunction status: without acute organ dysfunction Sepsis type: sepsis due to unspecified organism Qualified Code(s): A41.9 - Sepsis, unspecified organism (2) UTI (urinary tract infection): Assessment and Plan: Bladder stone seen on CT and US, UA positive and sent for culture. Continue rocephin. Qualifiers: Hematuria presence: without hematuria Urinary tract infection type: acute cystitis Qualified Code(s): N30.00 - Acute cystitis without hematuria (3) Kidney disease: Assessment and Plan: continue KErendia, renally dose medications. 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 (5) HTN (hypertension): Assessment and Plan: continue losartan Qualifiers: Hypertension type: secondary to endocrine disorders Qualified Code(s): I15.2 - Hypertension secondary to endocrine disorders (6) Obesity: Assessment and Plan: would benefit from weight reduction Qualifiers: Body mass index: BMI 45.0-49.9 Obesity classification: adult class 3 (BMI >= 40) Obesity type: due to excess calories Serious obesity comorbidity presence: with serious comorbidity Qualified Code(s): E66.813 - Obesity, class 3; E66.01 - Morbid (severe) obesity due to excess calories; Z68.42 - Body mass index [BMI] 45.0-49.9, adult (7) Macular degeneration: Qualifiers: Eye laterality: unspecified Macular degeneration type: unspecified type Qualified Code(s): H35.30 - Unspecified macular degeneration (8) Chronic a-fib: Assessment and Plan: continue eliquis (9) GERD without esophagitis: Assessment and Plan: contiue PPI (10) Liver lesion, right lobe: Assessment and Plan: as seen on CT, and MRI; patient reports she has had it investigated prior and it's benign (11) Enlarged uterus: Assessment and Plan: Will need followed up outpatient with ultrasound (12) Asthma: Assessment and Plan: continue inhalers Qualifiers: Asthma complication type: unspecified Asthma persistence: unspecified Asthma severity: unspecified severity Qualified Code(s): J45.909 - Unspecified asthma, uncomplicated DS: Summary Hospital Course Hospital Course: Patient was admitted with sepsis and lactic acidosis with leukocytosis secondary to acute UTI, treated aggressively with fluid resuscitation as well as IV antibiotics, final culture results are still pending, but patient is much improved today, also had acute kidney injury and her creatinine is improved today as well. At this point she feels comfortable with being discharged to home, so we will discharge patient to home in improving condition. Medications see list. Follow-up with PCP within the next few days. Time Spent with Patient Time attestation: Total time spent providing and/or coordinating discharge services: Exam Constitutional Vital Signs, click to edit/add: Last Vital Signs Temp 97.8 F 07/03/24 07:57 Pulse 69 07/03/24 08:00 Resp 18 07/03/24 07:57 BP 138/82 07/03/24 07:57 Pulse Ox 96 07/03/24 07:57 O2 Del Method Room Air 07/03/24 07:57 Documenting provider has reviewed patient's vital signs: yes Common normals: no apparent distress Chest Common normals: inspection of chest normal Respiratory Common normals: normal respiratory effort and no retractions Cardio Common normals: regular rate and regular rhythm GI Common normals: negative for Normal to inspection, nondistended, normoactive bowel sounds present (Morbid obesity) DS: Data Data Completed and Pending Labs on day of discharge: Labs from last 24 hours 07/03/24 06:02 WBC 7.6 RBC 4.59 Hgb 13.6 Hct 42.0 MCV 91.5 MCH 29.6 MCHC 32.4 RDW 15.3 H Plt Count 302 MPV 9.8 Neut % (Auto) 51.5 Lymph % (Auto) 30.5 [place] % (Auto) 11.1 Eos % (Auto) 5.3 Baso % (Auto) 0.8 Neut # (Auto) 3.9 Lymph # (Auto) 2.3 [place] # (Auto) 0.8 Eos # (Auto) 0.4 Baso # (Auto) 0.1 Abs Immat Gran (auto) 0.06 H Imm/Tot Granulo (auto) 0.8 H Sodium 143 Potassium 3.6 Chloride 107 Carbon Dioxide 26.6 Anion Gap 13.0 BUN 23.0 H Creatinine 1.32 H Est GFR ( Amer) 48 L Est GFR (Non-Af Amer) 39 L BUN/Creatinine Ratio 17.4 Glucose 104 Calcium 9.5 Total Bilirubin 0.3 AST 18 ALT 19 Alkaline Phosphatase 50 Total Protein 7.1 Albumin 3.0 L Globulin 4.1 Albumin/Globulin Ratio 0.7 Preliminary micro results at discharge 06/30/24 21:50 Urine Culture - Preliminary Urine,Clean Catch See Scanned Report 06/30/24 20:41 Blood Culture Result 2 - Preliminary Blood NO GROWTH AT 36-48 HOURS. FINAL TO FOLLOW. 06/30/24 20:20 Blood Culture Result 1 - Preliminary Blood - Right Hand NO GROWTH AT 36-48 HOURS. FINAL TO FOLLOW. Discharge Plan Discharge Disposition: Home, Self-Care Condition: Fair Discharge Medications: New cefdinir 300 mg capsule 600 mg PO DAILY Qty: 20 0RF Continued allopurinol 100 mg tablet 100 mg PO DAILY Kerendia 20 mg tablet 20 mg PO DAILY losartan 100 mg tablet 100 mg PO DAILY omeprazole 20 mg capsule,delayed release(DR/EC) 20 mg PO DAILY topiramate 50 mg tablet 50 mg PO Q12H tramadol 50 mg tablet 50 mg PO Q6H PRN (Reason: pain) verapamil 240 mg capsule,ext rel. pellets 24 hr 240 mg PO DAILY Eliquis 5 mg tablet 5 mg PO BID insulin aspart U-100 [Novolog FlexPen U-100 Insulin] 100 unit/mL (3 mL) insulin pen 50 unit SUBCUT Q12H insulin degludec [Tresiba FlexTouch U-200] 200 unit/mL (3 mL) insulin pen 60 unit SUBCUT Q12H fenofibrate nanocrystallized 145 mg tablet 145 mg PO QDAY furosemide 20 mg tablet 20 mg PO DAILY loperamide 2 mg capsule 2 mg PO Q6H PRN (Reason: loose stool) biotin 2,500 mcg capsule 2.5 mg PO DAILY PreserVision AREDS-2 250-90-40-1 mg capsule 1 tab PO BID fluticasone furoate-vilanterol [Breo Ellipta] 200-25 mcg/dose blister with device 1 inh inhalation DAILY Ozempic 1 mg/dose (4 mg/3 mL) pen injector 1 mg SUBCUT .week albuterol sulfate 2.5 mg /3 mL (0.083 %) solution for nebulization 2.5 mg inhalation Q4H PRN (Reason: shortness of breath or wheezing) Activity: increase activity as tolerated Diet: advance to your usual diet Print Language: Occitan Patient Instructions: Kidney Stones (DC), Sepsis (DC) Forms: Portal Instructions Follow Up Appointments: PCP: Dr. Mercer's office, will see his PA Gina: July 05 at 9:30am Office Address: [address] [place] [address] Office UROLOGY: Dr. Avilas is out of office all week. Dr. Elias will call patient to set up a follow-up appointment. [place] Office Address: [address], [address], [address] [address] [place] Office Address: [address] [place] [address] Office Discharge Date/Time: 07/03/24 10:04
--- NOTE | 2024-07-05 11:41 | CM.NOTE ---
Faxed final urine culture report to Dr. Mercer's office, fax confirmation received.
--- NOTE | 2024-07-06 12:01 | CM.DCFOLLOWU ---
3/4- 1st attempt. No answer
--- NOTE | 2024-07-09 15:20 | CM.DCFOLLOWU ---
2nd attempt 07/09/24, no answer
== END 2024-07-03 10:04 | disposition home or self-care (01) | DRG 872 ==
LOC: ER 23:16 → MS 07-01 14:31
PROVIDERS: Physician Assistant; Registered Nurse; Admitting Provider Family Medicine; Emergency Provider Student in an Organized Health Care Education/Training Program; PCP Internal Medicine; Visit Provider Family Medicine
DX: A41.9 Sepsis, unspecified organism (principal); N30.00 Acute cystitis without hematuria; Z68.42 Body mass index [BMI] 45.0-49.9, adult; I48.20 Chronic atrial fibrillation, unspecified; N17.9 Acute kidney failure, unspecified; E11.22 Type 2 diabetes mellitus with diabetic chronic kidney disease; N21.0 Calculus in bladder; I15.2 Hypertension secondary to endocrine disorders; E66.01 Morbid (severe) obesity due to excess calories; H35.30 Unspecified macular degeneration; I50.9 Heart failure, unspecified; J44.89 Other specified chronic obstructive pulmonary disease; N20.0 Calculus of kidney; K21.9 Gastro-esophageal reflux disease without esophagitis; K76.9 Liver disease, unspecified; N85.2 Hypertrophy of uterus; E78.5 Hyperlipidemia, unspecified; Z79.899 Other long term (current) drug therapy; Z79.4 Long term (current) use of insulin; Z79.01 Long term (current) use of anticoagulants; Z79.85 Long-term (current) use of injectable non-insulin antidiabetic drugs; Z79.51 Long term (current) use of inhaled steroids; Z88.1 Allergy status to other antibiotic agents; Z86.718 Personal history of other venous thrombosis and embolism; Z96.659 Presence of unspecified artificial knee joint; Z87.891 Personal history of nicotine dependence
CPT/HCPCS: 36415; 71045; 74176; 74181; 76857; 80053; 81001; 82800; 82948; 83605; 83735; 84484; 85007; 85025; 85027; 85610; 87040; 87086; 87420; 87804; 87811; 93005; 94640; 94761; 96365; 99285; J0696

== ENCOUNTER 2024-10-18 20:35 | Inpatient (IN) | payer MEDICARE, OTHER, SELFPAY ==
[2024-10-18] VITALS (17 sets, daily range): BP systolic 143; BP diastolic 69–71; PULSE 89–109; TEMP 36.8–38; O2SAT 93–98; BMI 42.0
--- NOTE | 2024-10-18 20:46 | ECG_ITS ---
[facility] Test Date: 2024-10-18 Pat Name: CHLOE PICKENS Department: Room: - Gender: Female Residential Care Officer: : 1950 Requested By: [id number] Order Number: [id number] Reading MD: RUDDY PEÑA Measurements Intervals [place] Rate: 106 P: 150 MO: 174 QRS: -32 QRSD: 90 T: 97 QT: 350 QTc: 412 Interpretive Statements Sinus rhythm with a short run of PSVT 4068 Nonspecific [place] abnormality 7200 Abnormal left axis deviation 8003 Consistent with pulmonary disease 8102 Low QRS voltage in chest leads 9150 abnormal ECG Compared to ECG 06/30/2024 20:20:56 Left-axis deviation now present Sinus tachycardia no longer present Left anterior fascicular block no longer present Electronically Signed On 10-19-2024 15:20:39 EDT by RUDDY PEÑA
--- NOTE | 2024-10-18 20:53 | XR_ITS ---
[address] [address] Patient Name: CHLOE PICKENS MRN: [id number] date: 1950 Sex: F Assigned Patient Location: ER Current Patient Location: ER Accession/Order Number: [id number] Exam Date: 10/18/2024 22:01 Report Date: 10/18/2024 22:03 At the request of: MAGNO BUENO MD Procedure: XR chest 1V XR chest 1V 10/18/2024 9:30 PM SIGNS AND SYMPTOMS: ^fever PROTOCOL: Frontal radiograph of the chest COMPARISON: 06/30/2025 FINDINGS: The trachea is midline. The heart and mediastinal structures are within normal limits. The lung parenchyma is clear. The bony thorax is intact. Degenerative changes are noted in the shoulders. XR/XR chest 1V IMPRESSION: No acute cardiopulmonary pathology. Impression dictated by: Neeraj Kathleen M.D. 10/18/2024 10:03 PM Dictation Location: [employer] Electronically authenticated by: [id number] Y Date: 10/18/2024 22:03
--- NOTE | 2024-10-18 20:54 | ED.FEVER1 ---
HPI - Fever General Chief Complaint: Fever Stated Complaint: FEVER Time Seen by Provider: 10/18/24 20:42 Source: patient Mode of arrival: ambulance Limitations: no limitations History of Present Illness HPI Narrative: This 74-year-old female with a history of diabetes is brought to the emergency department by EMS from home. According to the paramedics the patient has been septic twice due to a kidney stone that has been moving. I asked the patient where she was admitted when she was septic and she states she was admitted here. The patient has not been here since June when she was admitted for a fever and urinary retention. Patient states she started developing a fever this morning. She denies any chest pain or shortness of breath. She has no abdominal pain or flank pain. She denies any urinary frequency urgency or dysuria. She admits that her sugars have been running high. She has been coughing. She denies any vomiting or diarrhea. The patient's family arrived shortly after she did. Her granddaughter is the chief historian of the family. She states that the patient has had kidney stones and has been septic several times. She states that she was sent to [facility] for evaluation of the kidney stones and was seen by urology she has not had any intervention such as lithotripsy or kidney surgery. The patient does admit that she has been having some right-sided back pain and thought she may have been passing a kidney stone for the past several days. She does not have any sore throat, headache, neck pain or stiffness. She does not have any skin rash. The patient has several antibiotic prescriptions including Bactrim, Keflex and Levaquin. Apparently she was recently told to stop taking the antibiotics because it was thought that she was developing a resistance to them. Related Data Home Medications ?Medication ?Instructions ?Recorded ?Confirmed allopurinol 100 mg tablet 100 mg PO DAILY 05/31/24 06/30/24 apixaban 5 mg tablet (Eliquis) 5 mg PO BID 05/31/24 06/30/24 biotin 2,500 mcg capsule 2.5 mg PO DAILY 05/31/24 06/30/24 fenofibrate nanocrystallized 145 145 mg PO QDAY 05/31/24 06/30/24 mg tablet finerenone 20 mg tablet (Kerendia) 20 mg PO DAILY 05/31/24 06/30/24 fluticasone furoate 200 1 inh inhalation DAILY 05/31/24 06/30/24 mcg-vilanterol 25 mcg/dose inhalation powder (Breo Ellipta) furosemide 20 mg tablet 20 mg PO DAILY 05/31/24 06/30/24 insulin aspart U-100 100 unit/mL 50 unit subcut Q12H 05/31/24 07/01/24 (3 mL) subcutaneous pen (Novolog FlexPen U-100 Insulin aspart) insulin degludec 200 unit/mL (3 60 unit subcut Q12H 05/31/24 07/01/24 mL) subcutaneous pen (Tresiba FlexTouch U-200 insulin) loperamide 2 mg capsule 2 mg PO Q6H PRN loose stool 05/31/24 06/30/24 losartan 100 mg tablet 100 mg PO DAILY 05/31/24 06/30/24 omeprazole 20 mg capsule,delayed 20 mg PO DAILY 05/31/24 06/30/24 release semaglutide 1 mg/dose (4 mg/3 mL) 1 mg subcut .week 05/31/24 06/30/24 subcutaneous pen injector (Ozempic) topiramate 50 mg tablet 50 mg PO Q12H 05/31/24 06/30/24 tramadol 50 mg tablet 50 mg PO Q6H PRN pain 05/31/24 06/30/24 verapamil 240 mg 24 hr 240 mg PO DAILY 05/31/24 06/30/24 capsule,extended release vit C 250 mg-vit E 90 mg-zinc 40 1 tab PO BID 05/31/24 06/30/24 mg-copper 1 [id number] capsule (PreserVision AREDS-2) albuterol sulfate 2.5 mg/3 mL 2.5 mg inhalation Q4H PRN 06/30/24 06/30/24 (0.083 %) solution for nebulization shortness of breath or wheezing Previous Rx's ?Medication ?Instructions ?Recorded cefdinir 300 mg capsule 600 mg (2 x 300 mg) PO DAILY #20 07/03/24 caps Allergies Allergy/AdvReac Type Severity Reaction Status Date / Time doxycycline AdvReac Severe Nausea Verified 10/18/24 20:43 Review of Systems ROS Status of ROS 10 or more systems reviewed and unremarkable except as noted in history and below [facility] Medical History (Updated 10/19/24 @ 00:39 by ) Enlarged uterus ?N85.2 - Hypertrophy of uterus (ICD-10) Liver lesion, right lobe ?K76.9 - Liver disease, unspecified (ICD-10) UTI (urinary tract infection) ?N39.0 - Urinary tract infection, site not specified (ICD-10) Sepsis ?A41.9 - Sepsis, unspecified organism (ICD-10) Weakness ?R53.1 - Weakness (ICD-10) GERD without esophagitis ?K21.9 - Gastro-esophageal reflux disease without esophagitis (ICD-10) Chronic a-fib ?I48.20 - Chronic atrial fibrillation, unspecified (ICD-10) Acute urinary retention ?R33.8 - Other retention of urine (ICD-10) SIRS (systemic inflammatory response syndrome) ?R65.10 - Systemic inflammatory response syndrome (SIRS) of non-infectious origin without acute organ dysfunction (ICD-10) Fever ?R50.9 - Fever, unspecified (ICD-10) Generalized weakness ?R53.1 - Weakness (ICD-10) Obesity ?E66.9 - Obesity, unspecified (ICD-10) Macular degeneration ?H35.30 - Unspecified macular degeneration (ICD-10) Occasional tremors ?R25.1 - Tremor, unspecified (ICD-10) Asthma ?J45.909 - Unspecified asthma, uncomplicated (ICD-10) HTN (hypertension) ?I10 - Essential (primary) hypertension (ICD-10) Blood clot in vein ?I82.90 - Acute embolism and thrombosis of unspecified vein (ICD-10) Kidney disease ?N28.9 - Disorder of kidney and ureter, unspecified (ICD-10) Diabetes ?E11.9 - Type 2 diabetes mellitus without complications (ICD-10) Surgical History History of cataract surgery ?Z98.49 - Cataract extraction status, unspecified eye (ICD-10) History of tonsillectomy ?Z90.89 - Acquired absence of other organs (ICD-10) History of knee replacement (Unknown) ?Z96.659 - Presence of unspecified artificial knee joint (ICD-10) Hx of cholecystectomy ?Z90.49 - Acquired absence of other specified parts of digestive tract (ICD-10) Family History Father Family history of CHF (congestive heart failure) Family history of cancer Family history of myocardial infarction Mother Family history of diabetes mellitus Family history of hypertension Family history of myocardial infarction Family history of stroke Social History Within the past year, how often did you have a drink containing alcohol: never Score interpretation: A score less than 3 is consistent with normal alcohol consumption. Smoking status: Former smoker Non-prescribed substance use: denies use Previous occupational history: retired Highest level of school completed/degree received: some college, no degree Are you now , , , , never or living with a partner: In a typical week, how many times do you talk on the telephone with family, friends, or neighbors: 3 or more times per week How often do you get together with friends or relatives: once per week How often do you attend [employer] or [employer] services: never Do you belong to any clubs or organizations such as [employer] groups unions, [employer] or athletic groups, or school groups: no Total score: 2 Score interpretation: A score of greater than or equal to 2 indicates the lowest level of social isolation. Little interest or pleasure in doing things: not at all Feeling down, depressed, or hopeless: not at all Feel stressed/tense/nervous/anxious/difficulty sleeping: not at all Do you think of yourself as: straight/heterosexual Gender Identity: female Exam Narrative Exam Narrative: Vital signs and Nursing Notes reviewed: Patient is febrile, tachycardic with a pulse of 105, she is tachypneic with a respiratory of 22 and blood pressure is elevated 143/71, she has not hypoxic with pulse ox of 95% on room air General: Overweight adult female, she is awake, alert, oriented, no acute distress, lying comfortably on the stretcher-able to pull herself to a seated position so I can listen to her lungs HEENT: Normocephalic atraumatic, mucous membranes are moist and pink, eyes are clear, normal conjunctiva, vision is grossly intact, posterior pharynx is normal in appearance. Neck: Supple, no meningeal signs Chest: Lungs are clear to auscultation with good air entry, there is no wheezing rhonchi or rales appreciated no accessory muscle use, patient is speaking in complete sentences-no chest wall tenderness to palpation CVS: Regular rate and rhythm S1-S2, tachycardic at 105 on arrival no murmurs rubs or gallops, pulses are brisk and equal bilaterally ABD: Soft, nondistended, nontender, no rebound guarding or rigidity, normal bowel sounds, no flank tenderness Extremities: Moving all extremities, no lower extremity tenderness or swelling noted, negative Homans' sign, pulses are brisk and equal bilaterally Skin: Normal in appearance without rash,pallor, petechiae or purpura Neuro: No focal deficits, speech is clear, there is no facial droop, 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 is 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, she is able to pull herself to a seated position and was moving both lower extremities without difficulty Constitutional Vital Signs, click to edit/add: Last Vital Signs Temp 98.3 F 10/18/24 22:36 Pulse 90 10/18/24 22:30 Resp 32 H 10/18/24 22:30 BP 143/69 H 10/18/24 20:48 Pulse Ox 98 10/18/24 22:30 O2 Del Method Nasal Cannula 10/18/24 21:09 O2 Flow Rate 2 10/18/24 21:09 Course Vital Signs Vital signs: Vital Signs Temperature 100.4 F 10/18/24 20:40 Pulse Rate 105 H 10/18/24 20:40 Respiratory Rate 22 H 10/18/24 20:40 Blood Pressure 143/71 H 10/18/24 20:40 Pulse Oximetry 95 10/18/24 20:40 Oxygen Delivery Method Room Air 10/18/24 20:40 Temperature 98.3 F 10/18/24 22:36 Pulse Rate 90 10/18/24 22:30 Respiratory Rate 32 H 10/18/24 22:30 Blood Pressure 143/69 H 10/18/24 20:48 Pulse Oximetry 98 10/18/24 22:30 Oxygen Delivery Method Nasal Cannula 10/18/24 21:09 Oxygen Delivery Flow Rate 2 10/18/24 21:09 MDM - Fever MDM Narrative Medical decision making narrative: This 74-year-old female is brought the emergency department by EMS from home for evaluation of a fever. The patient has allegedly been treated for sepsis several times in the past year related to having kidney stones. The patient was referred to [facility] for evaluation of her kidney stones. No intervention has been performed at this time. She started developing a fever earlier in the day. She has not had any nausea or vomiting. She did have some right sided flank pain over the course of the past several days and thought she may be passing a stone. She is not having any urinary symptoms including frequency urgency dysuria or hematuria. She does not have any headache, neck pain, sore throat. She has not had any sick contacts. She does have an occasional cough. She does not smoke. She has a history of diabetes and chronic renal insufficiency. Upon arrival she was febrile and tachycardic. EKG is in rapid atrial rhythm at 106 bpm. An IV was placed and the septic workup was ordered. 30 cc of normal saline per kilogram was given to her. Her white count is elevated at 14.7 with a stable hemoglobin. Glucose is 340. Lactic acid is elevated at 2.9. BUN and creatinine are stable at this time. Besides the elevated glucose the electrolyte panel and liver function tests are normal. CT scan of the abdomen pelvis shows a recently passed kidney stone in the bladder as well as stones in each kidney but no ureteral stone or obstructive uropathy. The remainder of the CT scan was normal.. Urine was collected and is negative for infection. The patient received Tylenol and IV fluids. On reevaluation she is feeling better and requested something to eat. She was empirically given a dose of IV Rocephin. Blood cultures are pending at this time. Due to her history of diabetes, renal insufficiency and several episodes of sepsis the patient will be admitted for further evaluation and treatment. She is hemodynamically stable at this time. She is reluctant but agreeable to admission. The case was discussed with the hospitalist and she is excepted for admission to [facility]. Lab Data Labs: Lab Results 10/18/24 10/18/24 Range/Units 20:56 22:17 WBC 14.7 H (4.0-11.0) 10^3/uL RBC 4.77 (4.20-5.40) 10^6/uL Hgb 14.0 (12.0-16.0) g/dL Hct 42.9 (36.0-48.0) % MCV 89.9 (81.0-99.0) fL MCH 29.4 (26.7-34.0) pg MCHC 32.6 (29.9-35.2) g/dL RDW 13.9 (11.0-15.0) % Plt Count 282 (150-450) 10^3/uL MPV 10.0 (9.5-13.5) fL Seg Neuts % (Manual) 92.0 H (43.0-75.0) Band Neutrophils % 1.0 (0-5) % Lymphocytes % (Manual) 3.0 L (20.5-60.0) % Monocytes % (Manual) 3.0 (1.7-12.0) % Eosinophils % (Manual) 0.0 L (0.9-7.0) % Basophils % (Manual) 1.0 (0.2-2.0) % Neutrophils # (Manual) 13.52 H (1.4-6.5) 10^3/uL Band Neutrophils # 0.1 (0.0-0.3) 10^3/uL Lymphocytes # (Manual) 0.44 L (1.20-3.80) 10^3/uL Monocytes # (Manual) 0.44 (0.30-0.80) 10^3/uL Eosinophils # (Manual) 0.00 (0.00-0.70) 10^3/uL Basophils # (Manual) 0.14 H (0.00-0.10) 10^3/uL Sodium 137 (136-145) mmol/L Potassium 4.1 (3.5-5.1) mmol/L Chloride 103 (98-107) mmol/L Carbon Dioxide 21.4 (21.0-32.0) mmol/L Anion Gap 16.7 BUN 26.0 H (7.0-18.0) mg/dL Creatinine 1.13 H (0.55-1.02) mg/dL Est GFR ( Amer) 57 L (>=60 mL/min/1.73m^2) Est GFR (Non-Af Amer) 47 L (>=60 mL/min/1.73m^2) BUN/Creatinine Ratio 23.0 Glucose 340 H (74-106) mg/dL Lactate 2.9 H* (0.4-2.0) mmol/L Calcium 9.0 (8.5-10.1) mg/dL Total Bilirubin 0.5 (0.2-1.0) mg/dL AST 15 (15-37) U/L ALT 23 (14-59) U/L Alkaline Phosphatase 84 (46-116) U/L C-Reactive Protein 4.26 H (<=0.50) mg/dL Total Protein 6.7 (6.4-8.2) g/dL Albumin 2.9 L (3.4-5.0) g/dL Globulin 3.8 g/dL Albumin/Globulin Ratio 0.8 Urine Color Lt. yellow (YELLOW) Urine Clarity Clear (CLEAR) Urine pH 6.0 (5.0-9.0) Ur Specific [place] 1.010 (1.005-1.025) Urine Protein Negative (NEG/TRACE) mg/dL Urine Glucose (UA) >=1000 A (NEGATIVE) mg/dL Urine Ketones Negative (NEGATIVE) mg/dL Urine Occult Blood Negative (NEGATIVE) Urine Nitrite Negative (NEGATIVE) Urine Bilirubin Negative (NEGATIVE) Urine Urobilinogen 1.0 (0.2-1.0) EU/dL Ur Leukocyte Esterase Negative (NEGATIVE) Urine RBC None seen (0-2) #/HPF Urine WBC 0-2 A (NONE SEEN) #/HPF Ur Squamous Epith Cells Moderate A (NONE/RARE) #/LPF Urine Crystals None seen (None Seen) #/HPF Urine Bacteria None seen (NONE SEEN) #/HPF Urine Casts None seen (NONE SEEN) #/LPF Urine Mucus None seen (NONE SEEN) Ur Culture Indicated? No ECG Data Attestation: I personally reviewed and interpreted this ECG as follows: (Rapid atrial rhythm at 106 bpm, nonspecific ST changes, left axis deviation, no acute ST segment elevation or T wave inversion) Discharge Plan Discharge Chief Complaint: Fever Clinical Impression: Fever, Hyperglycemia, Kidney stones Patient Disposition: Admitted as Observation Time of Disposition Decision: 00:36 Condition: Good
--- OUTSIDE RECORDS SUMMARY | 2024-10-18 20:54 | XMS_ITS | CCD ---
Author Organization [facility] Care Team Providers Care Anatomy And Physiology Instructor Name Role Phone RAJESH MERCER Unavailable Unavailable SERGIO, DILAN Unavailable Unavailable RAJESH MERCER Unavailable Unavailable SERGIO, DILAN Unavailable Unavailable None, No PCP Unavailable Unavailable Preston, Reyna Unavailable Unavailable LAVERNE, DR ANTHONY Admitting Unavailable LAVERNE, DR ANTHONY Attending Unavailable DR RAJESH MERCER Primary Care Unavailable Sergio, Dilan Unavailable Qamar Rowan Unavailable RACHEL Mercer Primary Care Provider [phone] MD Dilan Nguyễn Attending Provider RACHEL Mercer Primary Care Provider MD Dilan Nguyễn Attending Provider RACHEL Mercer Primary Care Provider [phone] MD Dilan Nguyễn Attending Provider Dari Carlson Unavailable Unavailable Rajesh Mercer II Primary Care Unavail able Rajesh Mercer II Primary Care Unavail able Honda, Kord Attending Unavailable Preston, Reyna Referring Unavailable Rajesh Mercer II Primary Care Unavail able Honda, Kord Attending Unavailable Preston, Reyna Referring Unavailable Rajesh Mercer II Primary Care Unavail able Self, Referral Referring Unavailable Preston, Reyna Attending Unavailable Rajesh Mercer II Primary Care Unavail able Preston, Reyna Attending Unavailable UNKNOWN, UNKNOWN Referring Unavailable Preston, Reyna Attending Unavailable UNKNOWN, UNKNOWN Referring Unavailable Rajesh Mercer II Primary Care Unavail able Rajesh Mercer MD Primary Care Provider RACHEL Mercer Primary Care Provider MD Dilan Nguyễn Attending Provider Rajesh Mercer MD Primary Care Provider REYNA PRESTON Attending Unavailable RAJESH MERCER Primary Care Unavailable REYNA PRESTON Attending Unavailable RAJESH MERCER Primary Care Unavailable RACHEL Mercer Primary Care Provider MD Dilan Nguyễn Attending Provider Rajesh Mercer MD Primary Care Provider Rajesh Mercer MD Unavailable [phone] MAGGI PENA Attending Unavailable RAJESH MERCER Referring Unavailable RAJESH MERCER Primary Care Unavailable MAGGI PENA Attending Unavailable RAJESH MERCER Referring Unavailable RAJESH MERCER Primary Care Unavailable GINA BUSTILLO Attending Unavailable RAJESH MERCER Referring Unavailable RAJESH MERCER Primary Care Unavailable Rajesh Mercer MD Primary Care Provider Michael CRAFT, Corry Unavailable [phone] Rajesh Mercer II Primary Care Provider Dlian Nguyễn MD Attending Provider [phone] Sophia Contreras PA-C Attending Provider RAJESH MERCER Primary Care Physician Figueroa PATINO Eve Unavailable Unavailable NKANSAH-AMANKRA, JESSICA Attending Unavail able NKANSAH-AMANKRA, JESSICA Attending Unavail able NKANSAH-AMANKRA, JESSICA Referring Unavail able NKANSAH-AMANKRA, JESSICA Admitting Unavail able Rajesh Mercer II Primary Care Provider Sophia Contreras PA-C Attending Provider Rajesh Mercer II Attending Provider [phone] Rajesh Mercer Attending Unavailable Rajesh Mercer Admitting Unavailable Rajesh Mercer Primary Care Unavailable Rajesh Mercer Primary Care Unavailable Sergio, Dilan Admitting Unavailable SergioDilan Attending Unavailable Rajesh Mercer Primary Care Unavailable Sergio, Dilan Admitting Unavailable Sergio, Dilan Attending Unavailable Juan Contrerasie Admitting Unavailable Sophia Contreras Attending Unavailable Rajesh Mercer Primary Care Unavailable NKANSAH-AMANKRA, JESSICA Referring Unavail able NKANSAH-AMANKRA, JESSICA Attending Unavail able NKANSAH-AMANKRA, JESSICA Admitting Unavail able NKANSAH-AMANKRA, JESSICA Attending Unavail able Unavailable Primary Care Provider UnavailKAILEE Gomez Attending Unavailable KAILEE NOVA Attending Unavailable KAILEE NOVA H Attending Unavailable KAILEE NOVA H Attending Unavailable GINA WHITESIDE Attending Unavailable RAJESH MERCER Attending Unavailable KAILEE NOVA H Attending Unavailable RAJESH MERCER Attending Unavailable RAJESH MERCER Attending Unavailable RAJESH MERCER Attending Unavailable THOMAS, KAILEE H Attending Unavailable RAJESH MERCER Attending Unavailable THOMAS, KAILEE H Attending Unavailable Aileen Jr, Dez T Attending Unavailable Aileen Jr, Dez T Referring Unavailable Aileen Jr, Dez T Attending Unavailable Aileen Jr, Dez T Referring Unavailable Aileen Jr, Dez T Attending Unavailable Aileen Jr, Dez T Referring Unavailable Aileen Jr, Dez T Attending Unavailable Aileen Jr, Dez T Referring Unavailable Rajesh Mercer II Primary Care Provider RC, WAHIB Attending Unavailable RC, WAHIB Referring Unavailable RC, WAHIB Attending Unavailable Allergies Allergy Classification Reported Allergen(s) Allergy Type Date of Onset Reaction(s) Facility Doxycycline (2 sources) Doxycycline; Translations: [doxycycline] Drug Allergy [facility] Work Phone: (20 sources) Doxycycline; Translations: [doxycycline] Drug Allergy 7 Rash, Unknown [facility] (1 source) Propensity to adverse reactions to drug 0 [facility] (1 source) Propensity to adverse reactions to drug 0 [facility] (1 source) Doxycycline Drug Allergy 7 [facility] Repository (17 sources) cat and dog dander as a youth Propensity to adverse reactions Unknown [employer] Other (18 sources) Ragweed Propensity to adverse reactions Unknown [employer] Other (17 sources) dust as a youth Propensity to adverse reactions Unknown [employer] Other (17 sources) chocolate as a youth Propensity to adverse reactions Unknown [employer] Other (1 source) Propensity to adverse reactions to drug 0 [facility] (1 source) Propensity to adverse reactions to drug 0 [facility] (1 source) Chocolate Drug allergy Unknown [employer] Other (1 source) House dust mite Drug allergy Unknown [employer] Other (7 sources) house dust allergenic extract; Translations: [house dust] Drug Allergy 4 [facility] (7 sources) Ragweed pollen; Translations: [ragweed pollen] Allergy to substance 4 [facility] (20 sources) Lanolin; Translations: [LANOLIN] Drug Allergy 3 Unknown [facility] (1 source) Doxycycline Drug Allergy 5 [facility] Repository Medications Current Medications Medication Drug Class(es) Dates Sig (Normalized) Sig (Original) 3 ML semaglutide 1.34 MG/ML Pen Injector [Ozempic] (3 sources) Start: 08-18-2024 inject 1 mg by subcutaneous injection every week Ozempic (1 mg dose) 4 mg/3 mL subcutaneous solution 1 mg, SubCutaneous, qWeek, , Refills(s) 0 Start Date: 08/18/24 Status: Ordered Repeat number: 1 30 ACTUAT fluticasone furoate 0.05 MG/ACTUAT / vilanterol 0.025 MG/ACTUAT Dry Powder Inhaler [Breo] (3 sources) Start: 07-09-2024 Breo Ellipta 50 mcg-25 mcg/inh. inhalation powder 1 inh, Inhalation, Daily, Refill(s) 0 Start Date: 07/09/24 Status: Ordered Repeat number: 1 acetaminophen 500 mg oral tablet (12 sources) Start: 07-21-2023 take 2 tablets by mouth every six hours as needed Acetaminophen 500 mg tablet Active 2 TAB PO Every 6 hours July 21, 2023 12:00am FreeTextSi tablet as needed Orally every 6 hrs; Note: Source Status: Taking; Provider: Harpal Foote ( ) take 2 tablets by mo ut every six hours as needed Acetaminophen 500 MG 2 tablet as needed Orally every 6 hrs Active [id number] 200 actuat albuterol 0.09 mg/actuat metered dose inhaler (20 sources) beta2-Adrenergic Agonist Start: 09-01-2024 take 2 puff(s) by inhalation every four hours for wheezing albuterol HFA (Ventolin HFA) 90 mcg/act inhaler Indications: Chronic obstructive pulmonary disease, unspecified COPD type (CMS/HCC) Inhale 2 puffs every 4 (four) hours if needed for wheezing or shortness of breath 18 g 11 09/01/2024 Active Start: 08-18-2024 take 2.5 mg by inhal ation every six hours albuterol 0.083% Inh Isatu 3 mL 2.5 mg, 3 mL, NEB, q6hr Shortness of breath or wheezing, Refill(s) 0 Start Date: 08/18/24 Status: Ordered Repeat number: 1 Start: 06-18-2024 albuterol (2.5 MG/3ML) 0.083% nebulizer solution Indications: Chronic obstructive pulmonary disease, unspecified COPD type (CMS/HCC) Take 3 mL (2.5 mg) by nebulization every 4 (four) hours if needed for wheezing 75 mL 3 06/18/2024 Active Start: 08-26-2023 End: 06-18-2024 take 2.5 mg by inhalation four times daily as needed Albuterol Sulfate 2.5 mg /3 mL (0.083 %) solution for nebulization Active 2.5 MG INHALATION Four times daily as needed August 26, 2023 10:19am Start: 07-21-2023 take 1 puff(s) by in halation every four hours as needed Albuterol Sulfate (Ventolin Hfa) 90 mcg/actuation HFA aerosol inhaler Active 2 PUFF INHALATION Every 4 hours as needed July 21, 2023 12:00am Start: 07-21-2023 End: 08-26-2023 take 1 [IU] by inhalation four times daily Albuterol Sulfate 2.5 mg /3 mL (0.083 %) solution for nebulization Discontinued 1 UNIT INHALATION Four times daily July 21, 2023 12:00am August 26, 2023 10:19am FreeTextSi unit dose Inhalation four times a day DX J44.9 COPD; Note: Source Status: Takingprn; Refills: 11; Provider: Harpal Wells albuterol (PROVE NTIL HFA;VENTOLIN HFA) 90 mcg/actuation inhaler Ventolin HFA 90 mcg/actuation aerosol inhaler as needed Active End: 09-01-2024 albuterol HFA (Ventolin HFA) 90 mcg/act inhaler Ventolin HFA 90 mcg/actuation aerosol inhaler as needed 09/01/2024 Discontinued (Reorder) albuterol 2.5 mg /3 mL (0.083 %) [...] 0 Refills: 0 Ordered: 27-Nov-2020 DO Active Albuterol (Eqv-ProAir HFA) 90 mcg/inh inhalation aerosol (3 sources) Start: 08-18-2024 Albuterol (Eqv-ProAir HFA) 90 mcg/inh inhalation aerosol 2 inh, Inhalation, q4hr Shortness of breath or wheezing, Refill(s) 0 Start Date: 08/18/24 Status: Ordered Repeat number: 1 allopurinol 100 mg oral tablet (20 sources) Xanthine Oxidase Inhibitor Start: 08-15-2021 take 1 tablet by mouth once daily allopurinol (ZYLOPRIM) 100 mg tablet Take 100 mg by mouth once daily. 08/18/2024 Active amoxicillin 500 mg oral capsule (3 [...] (20 sources) Factor Xa Inhibitor Start: 05-03-2019 take 1 tablet by mouth twice daily apixaban (ELIQUIS) 5 mg tab(s) Take 5 mg by mouth two times a day. 07/21/2023 Active take 2 tablets by mouth twice da ameya apixaban (ELIQUIS) 5 mg tablet Eliquis 5 mg tablet Take 2 tablets twice a day by oral route. Active ascorbic acid 226 mg / beta carotene [id number] unt / cuprous oxide 0.8 mg / dl-alpha tocopheryl acetate 200 unt / zinc oxide 34.8 mg oral capsule (20 sources) Vitamin C Vit A,C,E-Zinc-C opper (PRESERVISION AREDS) 4,296 mcg-226 mg-90 mg cap 1 capsule. Active ascorbic acid 113 mg / copper gluconate 0.4 mg / docosahexaenoic acid 87.5 mg / eicosapentaenoic acid 163 mg / lutein 2.5 mg / tocopherol acetate 100 unt / zeaxanthin 0.5 mg / zinc oxide 17.4 mg oral capsule (18 sources) Vitamin C PreserVision ARE DS 2 - as directed Orally TWICE A DAY Active aspirin 81 mg chewable tablet (9 sources) Platelet Aggregation Inhibitor, Nonsteroidal Anti-inflammatory Drug Start: 5 End: 6 aspirin 81 MG chewable tablet Indications: Type 2 diabetes mellitus with other specified complication, with long-term current use of insulin Chew 1 tablet (81 mg) Daily 30 tablet 11 08/20/2024 08/20/2025 Active azithromycin 250 mg oral tablet (2 sources) Macrolide Antimicrobial Start: 0 [id number] Medication azithromycin 250 mg tablet azithromycin 250 mg tablet 250 mg 09/29/2019 Active (Outside) biotin 10 mg oral tablet (20 sources) Start: 4 Biotin 10 mg tab Take 10 mg by mouth. 07/21/2023 Active Start: 07-21-2023 take 1 tablet under the tongue once daily Biotin 5,000 mcg tablet, sublingual Active 5000 MCG SUBLINGUAL Daily July 21, 2023 12:00am take 2 tablets by mo ut in the morning biotin 2.5 MG capsule Take 2 tablets by mouth in the morning. Active take 1 tablet by dinora twice daily biotin 10 mg tablet Take 1 tablet (10 mg) by mouth 2 times a day. Active take 1 capsule by mo uth twice daily Biotin 6000 1 capsule Orally bid Active Biotin TABS 6000 1 CAPSULE ORALLY bid Quantity: 0 Refills: 0 Ordered: 27-Nov-2020 DO Active Blood Glucose Monitoring Sup pl (OneTouch Verio Flex System) w/Device kit (20 sources) Start: 12-26-2022 Blood Glucose Monitoring Suppl (OneTouch Verio Flex System) w/Device kit USE TO CHECK GLUCOSE 4 TIMES DAILY 12/26/2022 Active blood-glucose meter (ONETOUC H VERIO METER[place] [facility] [place] Start: 12-23-2022 blood-glucose meter (ONETOUCH VERIO METER[place] [facility]ications: Type 2 diabetes mellitus with hypoglycemia without coma, without long-term current use of insulin ([facility]) Use daily 4 times a day DX:E11.65 1 each 12/23/2022 Active Start: 12-23-2022 blood-glucose meter (ONETOUCH VERIO METER) [facility] Indications: Type 2 diabetes mellitus with hypoglycemia without coma, without long-term current use of insulin ([facility]) Use daily 4 times a day DX:E11.65 1 each 0 12/23/2022 Active Breo Ellipta 200-25 MCG/INH (8 sources) take 1 puff(s) by inhalation once daily Breo Ellipta 200-25 MCG/INH 1 puff Inhalation Once a day Active cephalexin 250 mg oral capsule (10 sources) Cephalosporin Antibacterial Start: 09-10-19 take 1 capsule by mouth once Cephalexin 250 mg capsule Active 250 MG PO Once September 28, 2024 12:00am Start: 08-20-2024 End: 09-01-2024 take 1 capsule by mouth in the morning cephalexin (Keflex) 500 MG capsule Indications: Acute cystitis without hematuria Take 1 capsule (500 mg) by mouth in the morning and 1 capsule (500 mg) before bedtime. Do all this for 10 days. 20 capsule 08/20/2024 09/01/2024 Active cholecalciferol, vitamin D3, (VITAMIN D3 ORAL) (15 sources) cholecalciferol, vitamin D3, (VITAMIN D3 ORAL) Take by mouth. Active cholecalciferol, vitamin D3, (VITAMIN D3 ORAL) Take by mouth. 0 Active CPAP Machine (18 sources) CPAP Machine Act reji 0.5 ml dulaglutide 3 mg/ml auto-injector (20 sources) GLP-1 Receptor Agonist Start: 06-16-2020 dulaglutide (Trulicity) 1.5 mg/0.5 mL pen injector injection Inject under the skin. 06/16/2020 Active Start: 01-17-2020 [id number] Medica tion dulaglutide 1.5 mg/0.5 mL subcutaneous pen injector Trulicity 1.5 mg/0.5 mL subcutaneous pen injector 1.5 mg/0.5 mL 10/07/2020 Active (Outside) inject 1.5 mg by sub cutaneous injection every week dulaglutide (TRULICITY) 0.75 mg/0.5 mL pen injector Inject 1.5 mg subcutaneously one time a week. Active Trulicity 1.5 MG /0.5ML as directed Subcutaneous ONCE A WEEK Active empagliflozin 25 mg oral tablet (20 sources) Sodium-Glucose Cotransporter 2 Inhibitor Start: 07-04-2022 End: 04-19-2024 take 1 tablet by mouth in the morning JARDIANCE 25 mg tablet tablet Indications: Type 2 diabetes mellitus with hyperglycemia, with long-term current use of insulin ([facility]) take 1 tablet by mouth in the morning 90 tablet 3 09/25/2023 Active take 1 tablet by dinora th every twenty-four hours Jardiance 10 MG 1 tablet Orally Once a day Active fenofibrate 145 mg oral tablet (20 sources) Peroxisome Proliferator Receptor alpha Agonist Start: 05-12-2023 take 1 tablet by mouth once daily at mealtime fenofibrate nanocrystallized (TRICOR) 145 mg tablet Take 1 tablet by mouth daily with food. 05/12/2023 Active Start: 05-03-2019 take 1 tablet by dinora th twice daily Fenofibrate Nanocrystallized 145 mg tablet Active 1 TAB PO Twice daily July 21, 2023 12:00am FreeTextSi tablet Oral TWICE A DAY; Note: Source Status: Taking; Refills: 0; Provider: Harpal Foote ( ) choline fenofibr ate (TRILIPIX) 135 mg capsule fenofibric acid (choline) 135 mg capsule,delayed release Active Fenofibrate 145 MG Oral Tablet Quantity: 0 Refills: 0 Ordered: 27-Nov-2020 DO Active Finerenone (20 sources) Start: 08-30-2024 take 1 tablet by dinora th once daily Finerenone (Kerendia) 20 mg tablet Active 0 .ROUTE .COMPLEX August 30, 2024 11:20am TAKE 1 TABLET BY MOUTH DAILY Start: 03-05-2024 End: 09-28-2024 take 1 tablet by mouth once daily Finerenone (Kerendia) 20 mg tablet Discontinued 0 .ROUTE .COMPLEX March 05, 2024 9:35am September 28, 2024 4:05pm TAKE 1 TABLET BY MOUTH EVERY DAY Start: 03-05-2024 take 1 tablet by dinora th once daily Finerenone (Kerendia) 20 mg tablet Active 0 .ROUTE .COMPLEX March 05, 2024 9:35am TAKE 1 TABLET BY MOUTH EVERY DAY Start: 03-05-2024 take 1 tablet by dinora th once daily Finerenone (Kerendia) 20 mg tablet Active 0 .ROUTE .COMPLEX March 05, 2024 8:35am TAKE 1 TABLET BY MOUTH EVERY DAY Start: 03-04-2024 End: 08-30-2024 take 1 tablet by mouth once daily Finerenone 20 mg tablet Discontinued 20 MG PO Daily March 04, 2024 9:31am August 30, 2024 11:20am Start: 03-04-2024 take 1 tablet by dinora th once daily Finerenone 20 mg tablet Active 20 MG PO Daily March 04, 2024 9:31am Start: 03-04-2024 take 1 tablet by dinora th once daily Finerenone 20 mg tablet Active 20 MG PO Daily March 04, 2024 8:31am Start: 07-29-2023 End: 03-05-2024 take 1 tablet by mouth once daily Finerenone (Kerendia) 20 mg tablet Discontinued 0 .ROUTE .COMPLEX July 29, 2023 5:41pm March 05, 2024 9:35am TAKE 1 TABLET BY MOUTH EVERY DAY Start: 07-29-2023 End: 03-05-2024 take 1 tablet by mouth once daily Finerenone (Kerendia) 20 mg tablet Discontinued 0 .ROUTE .COMPLEX July 29, 2023 4:41pm March 05, 2024 8:35am TAKE 1 TABLET BY MOUTH EVERY DAY Start: 07-29-2023 take 1 tablet by dinora th once daily Finerenone (Kerendia) 20 mg tablet Active 0 .ROUTE .COMPLEX July 29, 2023 5:41pm TAKE 1 TABLET BY MOUTH EVERY DAY Start: 07-21-2023 End: 07-29-2023 take 1 tablet by mouth once daily Finerenone 20 mg tablet Discontinued 1 TAB PO Daily July 21, 2023 12:00am July 29, 2023 5:42pm FreeTextSi tablet Orally Once a day; Note: Source Status: Taking; Refills: 1; Qty: 90 Tablet; Provider: Sergio Kong ( ) Start: 07-21-2023 End: 03-04-2024 take 1 tablet by mouth once daily Finerenone 20 mg tablet Discontinued 20 MG PO Daily July 21, 2023 12:00am March 04, 2024 9:33am Start: 07-21-2023 End: 07-29-2023 take 1 tablet by mouth once daily Finerenone 20 mg tablet Discontinued 1 TAB PO Daily July 20, 2023 11:00pm July 29, 2023 4:42pm FreeTextSi tablet Orally Once a day; Note: Source Status: Taking; Refills: 1; Qty: 90 Tablet; Provider: Sergio Kong ( ) Start: 07-21-2023 End: 03-04-2024 take 1 tablet by mouth once daily Finerenone 20 mg tablet Discontinued 20 MG PO Daily July 20, 2023 11:00pm March 04, 2024 8:33am Start: 07-21-2023 End: 07-29-2023 take 1 tablet [...] Active finerenone 20 MG Oral Tablet [Kerendia] (12 sources) Start: 08-18-2024 take 1 tablet by mouth once daily Kerendia 20 mg oral tablet 20 mg = 1 tab(s), Oral, Daily, Refills(s) 0 Start Date: 08/18/24 Status: Ordered Repeat number: 1 take 1 tablet by dinora th every twenty-four hours Kerendia 20 MG 1 tablet Orally Once a day for 90 days Active take 1 tablet by mouth once skylar y Kerendia 20 MG TAKE 1 TABLET BY MOUTH EVERY DAY for 30 Active take 1 tablet by dinora th every twenty-four hours Kerendia 20 MG 1 tablet Orally Once a day for 30 days Active fluticasone propionate 0.05 mg/actuat metered dose nasal spray (11 sources) Corticosteroid Start: 07-21-2023 take 1-2 spray(s) nasal route once daily Fluticasone Propionate 50 mcg/actuation spray,suspension Active 1-2 SPRAY INTRANASAL Daily July 21, [...] Chronic obstructive pulmonary disease, unspecified COPD type ([facility]) Inhale 1 puff in the morning. 1 each 11 06/18/2024 Active Start: 07-21-2023 take 1 puff(s) by in halation once daily Fluticasone Furoate-Vilanterol (Breo Ellipta) 200-25 mcg/dose blister with device Active 1 PUFF INHALATION Daily July 20, 2023 11:00pm FreeTextSi puff Inhalation Once a day; Note: Source Status: Taking; Provider: Harpal Wells Start: 07-21-2023 take 1 puff(s) by in halation once daily Fluticasone Furoate-Vilanterol (Breo Ellipta) 200-25 mcg/dose blister with device Active 1 PUFF INHALATION Daily July 21, 2023 12:00am FreeTextSi puff Inhalation Once a day; Note: Source Status: Taking; Provider: Harpal Wells Start: 06-25-2019 [id number] Medica tion fluticasone furoate 200 mcg-vilanterol 25 mcg/dose inhalation powder Breo Ellipta 200 mcg-25 mcg/dose powder for inhalation 200-25 mcg/dose 06/25/2019 Active (Outside) fluticasone/darren nterol (BREO ELLIPTA INHL) Inhale. Active fluticasone/darren nterol (BREO ELLIPTA INHL) Inhale. 0 Active take 1 puff(s) by in halation once daily Breo Ellipta 200-25 MCG/ACT 1 puff Inhalation Once a day Active furosemide 40 mg oral tablet (20 sources) Loop Diuretic Start: 08-18-2024 take 1 tablet by mouth once daily furosemide 20 mg Tab 20 mg = 1 tab(s), Oral, Daily, Refills(s) 0 Start Date: 08/18/24 Status: Ordered Repeat number: 1 Start: 08-18-2024 take 1 tablet by dinora th once daily furosemide (LASIX) 40 mg tablet Take 40 mg by mouth once daily. 08/18/2024 Active Start: 07-08-2024 Furosemide 20 mg tablet Active 0 .ROUTE .COMPLEX 180 July 08, 2024 1:59pm TAKE 2 TABLETS EVERY DAY Start: 07-21-2023 End: 07-08-2024 take 2 tablets by mouth once daily Furosemide 20 mg tablet Discontinued 40 MG PO Daily July 21, 2023 12:00am July 08, 2024 1:59pm Start: 07-21-2023 take 40 mg by mouth once daily Furosemide Active 40 MG PO Daily July 21, 2023 12:00am Start: 11-11-2019 [id number] Medicat ion furosemide 20 mg tablet furosemide 20 mg tablet 20 mg 01/09/2021 Active (Outside) Furosemide 40 MG TAKE 1 TABLET EVERY DAY Orally Once a day Active hydrALAZINE hydrochloride 25 mg oral tablet (15 sources) Arteriolar Vasodilator Start: 07-04-2022 take 2 tablets by mouth in the morning, then take 2 tablets by mouth at bedtime hydrALAZINE (APRESOLINE) 25 mg tablet Indications: Primary hypertension Take 2 tablets (50 mg total) by mouth in the morning and 2 tablets (50 mg total) before bedtime. 07/04/2022 Active ICaps AREDS 2 (3 sources) Start: 07-09-2024 ICaps AREDS 2 See Instructions, Refill(s) 0 Start Date: 07/09/24 Status: Ordered Repeat number: 1 Insulin Aspart U-100 (Novolog Flexpen U-100 Insulin) 100 unit/mL (3 mL) insulin pen (6 sources) Start: 07-21-2023 Insulin Aspart U-100 (Novolog Flexpen U-100 Insulin) 100 unit/mL (3 mL) insulin pen Active 50 UNIT SUBCUT Twice daily July 20, 2023 11:00pm Start: 07-21-2023 Insulin Aspart U-100 (Novolog Flexpen U-100 Insulin) 100 unit/mL (3 mL) insulin pen Active 50 UNIT SUBCUT Twice daily July 21, 2023 12:00am 3 ml insulin aspart, human 100 unt/ml pen injector (20 sources) Insulin Analog Start: 08-18-2024 NovoLOG FlexPe n 100 units/mL injectable solution 50 unit(s), SubCutaneous, BIDAC, Refills(s) 0 Start Date: 08/18/24 Status: Ordered Repeat number: 1 Start: 08-11-2023 inject 100 [IU] by s ubcutaneous injection once daily NovoLOG Flexpen U-100 Insulin 100 unit/mL (3 mL) insulin pen Indications: Type 2 diabetes mellitus with hyperglycemia, with long-term current use of insulin ([facility]) INJECT UNDER THE SKIN UP TO 100 [...] hyperglycemia, with long-term current use of insulin ([facility]) Uses up to 100 units daily 90 mL 3 07/16/2022 Active Start: 12-19-2019 [id number] Medica tion insulin aspart (U-100) 100 unit/mL (3 mL) subcutaneous pen Novolog Flexpen U-100 Insulin aspart 100 unit/mL (3 mL) subcutaneous 100 unit/mL (3 mL) 07/15/2021 Active (Outside) Start: 12-18-2019 insulin aspart U-100 (NOVOLOG FLEXPEN U-100 INSULIN) 100 unit/mL (3 mL) Inject 50 Units subcutaneously two times a day. 12/18/2019 Active 3 ml insulin degludec 200 unt/ml pen injector (20 sources) Insulin Analog Start: 08-18-2024 inject 60 [IU] by subcutaneous injection twice daily Tresiba FlexTouch 200 units/mL subcutaneous solution 60 unit(s), SubCutaneous, BID, Refills(s) 0 Start Date: 08/18/24 Status: Ordered Repeat number: 1 Start: 07-09-2024 inject 60 [IU] by yeboah bcutaneous injection twice daily Tresiba 60 unit(s), SubCutaneous, BID, Refills(s) 0 Start Date: 07/09/24 Status: Ordered Repeat number: 1 Start: 07-04-2022 End: 11-10-2023 insulin degludec (TRESIBA FLEXTOUCH U-200) 200 unit/mL (3 mL) insulin pen Indications: Type 2 diabetes mellitus with hyperglycemia, with long-term current use of insulin ([facility]) INJECT UP TO 150 UNITS UNDER THE SKIN EVERY DAY (DISCARD PEN 56 DAYS AFTER OPENING) 72 mL 3 11/10/2023 Active Start: 01-25-2020 [id number] Medica tion insulin degludec (U-200) 200 unit/mL (3 mL) subcutaneous pen Tresiba FlexTouch U-200 insulin 200 unit/mL (3 mL) subcutaneous pen 200 unit/mL (3 mL) 01/25/2020 Active (Outside) inject 70 [IU] by yeboah bcutaneous injection twice daily Tresiba FlexTouch 200 UNIT/ML 70 UNITS Subcutaneous TWICE A DAY Active Insulin Degludec (Tresiba Flextouch U-200) 200 unit/mL (3 mL) insulin pen (6 sources) Start: 07-21-2023 Insulin Deglud ec (Tresiba Flextouch U-200) 200 unit/mL (3 mL) insulin pen Active 70 UNIT SUBCUT Twice daily July 20, 2023 11:00pm Start: 07-21-2023 Insulin Deglud ec (Tresiba Flextouch U-200) 200 unit/mL (3 mL) insulin pen Active 70 UNIT SUBCUT Twice daily July 21, 2023 12:00am ipratropium bromide 0.2 mg/ml inhalation solution (20 sources) Anticholinergic Start: 07-21-2023 take 1 mL by inhalation four times daily Ipratropium [place] Active 0.625 ML INHALATION Four times daily July 21, 2023 12:00am Start: 09-04-2022 take 1 mL by inhalat ion four times daily Ipratropium [place] 0.02 % solution Active 0.625 ML INHALATION Four times daily July 21, 2023 12:00am take 1 [IU] by inhal ation four times daily as needed Ipratropium [place] 0.02 % 1 unit dose Inhalation Four times a day DX J44.9 COPD for 30 days prn Active iv contrast (will be provided with radiology test) (1 source) Start: 09-19-2024 End: 09-20-2024 iv contrast (will be provided with radiology test) MRI Liver Inject, intravenously, once for 1 dose. No IV access, insert saline lock prior to the beginning of sedation, infusion, injection of imaging exam. Discontinue saline lock post exam. If Pt. has a central line or IVAD, may access for administration according to line specific nursing protocol. Once exam is complete flush line and de-access according to line specific nursing protocol in the MR contrast administration guidelines link. 1 each 09/19/2024 09/20/2024 Active KERENDIA 10 mg tablet (15 sources) Start: 04-17-2022 take 1 tablet by [...] 07/10/2022 Active loperamide hydrochloride 2 mg oral tablet (20 sources) Opioid Agonist Start: 08-18-2024 take 1 capsule by mouth every four hours as needed loperamide 2 mg Cap 2 mg = 1 cap(s), Oral, q4hr, PRN as needed for loose stool, Refills(s) 0 Start Date: 08/18/24 Status: Ordered Repeat number: 1 Start: 07-09-2024 take 1 capsule by mo [facility] every six hours as needed loperamide (IMODIUM) 2 mg cap(s) Take 2 mg by mouth four times a day as needed. 07/09/2024 Active Start: 05-21-2024 End: 06-20-2024 take 1 capsule by mouth four times daily as needed for diarrhea loperamide (Imodium) 2 MG capsule Indications: Diarrhea, unspecified type Take 1 capsule (2 mg) by mouth 4 (four) times a day as needed for diarrhea 60 capsule 1 05/21/2024 06/20/2024 Active Start: 07-21-2023 End: 09-28-2024 take 1 tablet by mouth four times daily as needed Loperamide 2 mg tablet Active 2 MG PO Four times daily as needed September 28, 2024 4:06pm Start: 12-13-2022 End: 01-16-2024 take 1 capsule by mouth four times daily as needed for diarrhea loperamide (Imodium) 2 MG capsule Indications: Diarrhea, unspecified type Take 1 capsule (2 mg) by mouth 4 (four) times a day as needed for diarrhea 60 capsule 1 01/16/2024 Active Start: 08-04-2021 [id number] Medicat ion loperamide 2 mg capsule loperamide 2 mg capsule 2 mg 08/04/2021 Active (Outside) take 1 tablet by [facility] every six hours Loperamide HCl 2 MG 1 tablet as needed Orally Four times a day Active losartan potassium 100 mg oral tablet (20 sources) Angiotensin 2 Receptor Shelly Start: 04-12-2024 Losartan 100 mg tablet Active 0 .ROUTE .COMPLEX 90 April 12, 2024 2:40pm TAKE 1 TABLET EVERY DAY Start: 12-16-2019 End: 04-12-2024 take 1 tablet by mouth once daily losartan 100 mg Tab 100 mg = 1 tab(s), Oral, Daily, Refills(s) 0 Start Date: 08/18/24 Status: Ordered Repeat number: 1 Multiple Vitamins-Minerals (PRESERVISION AREDS 2 PO) (3 [...] daily. 44 g 2 03/03/2023 04/02/2023 Active Ad-Xvu-Us-Vit Y-Hgxriv-Lyovocu (Preservision Areds 2 Plus Mv) 200 mcg-15 mcg- 5 mg-1 mg capsule (6 sources) Start: 07-21-2023 take 1 capsule by mouth twice daily Dl-Nxi-Vz-Vit D-Rgqmtx-Fgibkmg (Preservision Areds 2 Plus Mv) 200 mcg-15 mcg- 5 mg-1 mg capsule Active 1 CAP PO .COMPLEX July 20, 2023 11:00pm 1 cap orally bid; Start: 07-21-2023 take 1 capsule by [facility] twice daily Eu-Cix-Op-Vit F-Jftcep-Xtmpocf (Preservision Areds 2 Plus Mv) 200 mcg-15 mcg- 5 mg-1 mg capsule Active 1 CAP PO .COMPLEX July 21, 2023 12:00am 1 cap orally bid; omeprazole 20 mg delayed release oral capsule (20 sources) Proton Pump Inhibitor Start: 04-21-2023 take 1 capsule by mouth once daily omeprazole (PRILOSEC) 20 mg capsule Take 20 mg by mouth once daily. 04/12/2024 Active Start: [id number] Medicat ion omeprazole omeprazole 40 mg 01/26/2020 Active (Outside) take 2 capsules by m outh every twenty-four hours Omeprazole 20 MG 2 capsules Orally Once a day Active OZEMPIC 1 mg/dose (4 mg/3 mL) pen injector (9 sources) Start: 10-08-2024 inject 1 mg by subcutaneous injection every week OZEMPIC 1 mg/dose (4 mg/3 mL) pen injector Indications: Type 2 diabetes mellitus with hyperglycemia, with long-term current use of insulin ([facility]) INJECT 1 MG SUBCUTANEOUSLY ONCE A WEEK 9 mL 3 10/08/2024 Active Start: 10-27-2023 End: 10-08-2024 OZEMPIC 1 mg/dose (4 mg/3 mL ) pen injector Indications: Type 2 diabetes mellitus with hyperglycemia, with long-term current use of insulin ([facility]) Inject 1 mg under the skin every 7 days. 9 mL 3 10/27/2023 10/08/2024 Discontinued Start: 10-27-2023 OZEMPIC 1 mg/d ose (4 mg/3 mL) pen injector Indications: Type 2 diabetes mellitus with hyperglycemia, with long-term current use of insulin ([facility]) Inject 1 mg under the skin every 7 days. 9 mL 3 10/27/2023 Active Ozempic, 1 MG/DOSE, 4 MG/3ML solution pen-injector (20 sources) Start: 10-27-2023 inject 1 mg by subcutaneous injection every week Ozempic, 1 MG/DOSE, 4 MG/3ML solution pen-injector Inject 1 mg under the skin once a week 10/27/2023 Active primidone 250 mg oral tablet (1 source) Anti-epilept ic Agent Start: 02-08-2021 [id number] Medication omeprazole 20 mg capsule,delayed release omeprazole 20 mg capsule,delayed release 20 mg 02/08/2021 Active (Outside) Semaglutide (4 sources) Start: 11-13-2023 Semaglutide (Ozempic) 1 mg/dose (4 mg/3 mL) pen injector Active MG SUBCUT November 12, 2023 11:00pm Start: 11-13-2023 Semaglutide (O zempic) 1 mg/dose (4 mg/3 mL) pen injector [...] 1 tablet by mouth once at bedtime sulfamethoxazole -trimethoprim (Bactrim DS) 800-160 MG per tablet Indications: [...] Active terbinafine hydrochloride 10 mg/ml topical cream (3 sources) Allylamine Antifungal Start: 04-13-2024 terbinafine (LamISIL) 1 % cream Indications: Tinea cruris Apply 1 Application topically in the morning and 1 Application before bedtime. 60 g 04/13/2024 Active topiramate 50 mg oral tablet (20 sources) Start: 06-05-2023 take 1 tablet by mouth twice daily Topiramate 50 mg tablet Active 50 MG PO Twice daily July 21, 2023 12:00am Start: [id number] Medicat ion topiramate 25 mg tablet topiramate [...] 1 tablet Orally Twice a day Active 24 hr verapamil hydrochloride 240 mg extended release oral capsule (20 sources) Calcium Channel Shelly Start: 04-21-2023 take 1 capsule by mouth once daily Verapamil 240 mg capsule,ext rel. pellets 24 hr Active 240 MG PO Daily July 21, 2023 12:00am Start: 06-24-2021 [id number] Medicat ion verapamil ER 240 mg 24 hr capsule,extended release verapamil ER 240 mg 24 hr capsule,extended release 240 mg 06/24/2021 Active (Outside) verapamil HCl (V ERAPAMIL ORAL) Take 240 mg by mouth. Active take 1 capsule by [facility] every twenty-four hours Verapamil HCl ER 240 MG 1 capsule Orally Once a day Active vit A/vit C/vit E/zinc/coppe r (PRESERVISION AREDS ORAL) (15 sources) vit A/vit C/vit E/zinc/copper (PRESERVISION AREDS [...] 12 hrs for 10 day(s) September, Not-Taking carvedilol 12.5 mg oral tablet (20 sources) alpha-Adrenergic Shelly, beta-Adrenergic Shelly Start: 04-17-2021 End: 09-28-2024 take 1 tablet by mouth twice daily Carvedilol 12.5 mg tablet Discontinued 12.5 MG PO Twice daily July 21, 2023 12:00am September 28, 2024 4:04pm take 2 tablets by [facility] every twelve hours Carvedilol 12.5 MG 2 tablet Orally Twice a day for 90 day(s) Not-Taking dulaglutide (TRULICITY) 3 mg/0.5 mL pen injector (6 sources) Start: 07-28-2023 End: 08-21-2023 dulaglutide (TRULICITY) 3 mg /0.5 mL pen injector Indications: Type 2 diabetes mellitus with hyperglycemia, with long-term current use of insulin ([facility]) inject 1 syringe subcutaneously once a week 4 mL 07/28/2023 08/21/2023 Discontinued Start: 07-28-2023 dulaglutide (T RULICITY) 3 mg/0.5 mL pen injector Indications: Type 2 diabetes mellitus with hyperglycemia, with long-term current use of insulin ([facility]) inject 1 syringe subcutaneously once a week 4 mL 0 07/28/2023 Active Start: 08-19-2022 End: 07-28-2023 dulaglutide (TRULICITY) 3 mg /0.5 mL pen injector Indications: Type 2 diabetes mellitus with hyperglycemia, with long-term current use of insulin ([facility]) 3mg weekly 2 mL 11 08/19/2022 07/28/2023 Discontinued Start: 08-19-2022 dulaglutide (T RULICITY) 3 mg/0.5 mL pen injector Indications: Type 2 diabetes mellitus with hyperglycemia, with long-term current use of insulin ([facility]) 3mg weekly 2 mL 11 08/19/2022 Active PreserVision AREDS 2 CAPS (5 sources) PreserVision ARE DS 2 CAPS Quantity: 0 Refills: 0 Ordered: 27-Nov-2020 DO Active traMADol hydrochloride 50 mg oral tablet (20 sources) Opioid Agonist Start: 06-18-2024 End: 08-02-2024 traMADOL 50 mg Tab 60 EA, 0 Refill(s), TAKE 1 TABLET BY MOUTH EVERY 6 HOURS NEEDED FOR SEVERE PAIN FOR 30 DAYS, Refills(s) 0 Start Date: 07/09/24 Status: Ordered Repeat number: 1 Start: 09-16-2020 [id number] Medicat ion tramadol 50 mg tablet tramadol [...] pain 60 tablet 2 04/19/2024 06/03/2024 Active TRULICITY 3 mg/0.5 mL pen injector (5 sources) Start: 10-16-2023 End: 10-27-2023 TRULICITY 3 mg/0.5 mL pen in jector Indications: Type 2 diabetes mellitus with hyperglycemia, with long-term current use of insulin ([facility]) inject 1 syringe subcutaneously once a week 8 mL 10/16/2023 10/27/2023 Discontinued Start: 10-16-2023 TRULICITY 3 mg /0.5 mL pen injector Indications: Type 2 diabetes mellitus with hyperglycemia, with long-term current use of insulin ([facility]) inject 1 syringe subcutaneously once a week 8 mL 10/16/2023 Active Start: 08-21-2023 End: 10-16-2023 TRULICITY 3 mg/0.5 mL pen in jector Indications: Type 2 diabetes mellitus with hyperglycemia, with long-term current use of insulin ([facility]) inject 1 syringe subcutaneously once a week 4 mL 08/21/2023 10/16/2023 Discontinued Start: 08-21-2023 TRULICITY 3 mg /0.5 mL pen injector Indications: Type 2 diabetes mellitus with hyperglycemia, with long-term current use of insulin ([facility]) inject 1 syringe subcutaneously once a week 4 mL 08/21/2023 Active Problems Active Problems Problem Classification Problem Date Documented Date Episodic/Chronic Acute and unspecified renal failure (20 sources) Acute renal failure syndrome; Translations: [Acute kidney failure, unspecified] 07-09-2024 Episodic Administrative/social admission (2 sources) Patient encounter status; Translations: [Other specified counseling] 04-19-2024 Episodic Asthma (3 sources) Asthma Onset: 5 07-09-2024 Chronic Calculus of urinary tract (20 sources) Kidney stone; Translations: [Calculus of kidney] Onset: 1 Resolved: 2 Episodic Cataract (20 sources) Bilateral age-related nuclear cataracts; Translations: [Age-related nuclear cataract, bilateral] Onset: 3 12-13-2022 Chronic Chronic kidney disease (20 sources) Chronic kidney disease, stage 3 (moderate); Translations: [Chronic kidney disease, stage 2 (mild)] Onset: 8 02-27-2023 Chronic Chronic obstructive pulmonary disease and bronchiectasis (20 sources) Chronic obstructive lung disease; Translations: [Chronic obstructive pulmonary disease, unspecified] Onset: 4 08-26-2023 Chronic Coagulation and hemorrhagic disorders (2 sources) Hypercoagulability state; Translations: [Other primary thrombophilia] 08-20-2024 Chronic Congestive heart failure; nonhypertensive (3 sources) Congestive heart failure 08-18-2024 Chronic Diabetes mellitus with complications (20 sources) Type 2 diabetes mellitus; Translations: [Type 2 diabetes mellitus with diabetic chronic kidney disease] Onset: 2 Resolved: 2 Chronic Diabetes mellitus without complication (20 sources) Diabetes mellitus; Translations: [Diabetes mellitus without mention of complication, type II or unspecified type, not stated as uncontrolled] Onset: 2 Resolved: 5 02-27-2023 Chronic Disorders of lipid metabolism (20 sources) Hyperlipidemia; Translations: [Hyperlipidemia, unspecified] Onset: 3 07-21-2023 Chronic Esophageal disorders (3 sources) Gastroesophageal reflux disease without esophagitis Onset: 5 07-09-2024 Chronic Essential hypertension (20 sources) Hypertensive disorder; Translations: [Unspecified essential hypertension] Onset: 1 02-27-2023 Chronic Hypertension with complications and secondary hypertension (20 sources) Hypertensive renal disease; Translations: [Hypertensive chronic kidney disease with stage 1 through stage 4 chronic kidney disease, or unspecified chronic kidney disease] Onset: 1 Resolved: 2 Chronic Lymphadenitis (15 sources) Axillary lymphadenopathy; Translations: [Enlargement of lymph nodes] Onset: 2 Resolved: 2 Episodic Melanomas of skin (20 sources) Malignant melanoma of upper limb; Translations: [Malignant melanoma of skin of upper limb, including shoulder] Onset: 3 02-27-2023 Chronic Mood disorders (20 sources) Moderate major depression, single episode; Translations: [Major depressive disorder, single episode, moderate] Onset: 3 12-13-2022 Chronic Mycoses (20 sources) Onychomycosis; Translations: [Tinea unguium] Onset: 3 10-24-2022 Episodic Nutritional deficiencies (20 sources) Vitamin D deficiency, unspecified; Translations: [Vitamin D deficiency] Onset: 8 Resolved: 5 Chronic Osteoarthritis (20 sources) Osteoarthritis of knee; Translations: [Osteoarthritis of knee, unspecified] Onset: 3 12-13-2022 Chronic Other and unspecified benign neoplasm (9 sources) Neoplasm of meninges; Translations: [Benign neoplasm of meninges, unspecified] Onset: 5 07-23-2024 Chronic Other and unspecified benign neoplasm (8 sources) Hemangioma of skin and subcutaneous tissue; Translations: [Hemangioma of skin and subcutaneous tissue] Onset: 1 Episodic Other and unspecified benign neoplasm (4 sources) Melanocytic nevi of trunk Onset: 1 Episodic Other and unspecified benign neoplasm (17 sources) Melanocytic nevi of unspecified upper limb, including shoulder Onset: 0 Episodic Other and unspecified benign neoplasm (4 sources) Melanocytic nevi of unspecified lower limb, including hip Onset: 1 Episodic Other and unspecified benign neoplasm (2 sources) Melanocytic nevus; Translations: [Melanocytic nevi, unspecified] 03-03-2023 Episodic Other and unspecified benign neoplasm (1 source) Hemangioma of skin; Translations: [Hemangioma of skin and subcutaneous tissue] 09-03-2023 Episodic Other connective tissue disease (15 sources) Artificial knee joint present; Translations: [Presence of artificial knee joint, bilateral] Onset: 5 06-18-2024 Chronic Other connective tissue disease (4 sources) Trochanteric bursitis, right hip; Translations: [TROCHANTERIC BURSITIS RIGHT HIP] Onset: 2 Episodic Other connective tissue disease (7 sources) Pain in left foot; Translations: [Pain in left foot] 02-24-2024 Episodic Other connective tissue disease (20 sources) Pain in both feet; Translations: [Pain in right foot] Onset: 3 10-24-2022 Episodic Other diseases of kidney and ureters (18 sources) Hydronephrosis; Translations: [Unspecified hydronephrosis] Episodic Other diseases of veins and lymphatics (20 sources) Lymphedema; Translations: [Lymphedema, not elsewhere classified] Onset: 3 12-13-2022 Chronic Other eye disorders (20 sources) Vitreous hemorrhage; Translations: [Vitreous hemorrhage, unspecified eye] Onset: 2 01-16-2024 Chronic Other eye disorders (20 sources) Bilateral vitreous degeneration of eyes; Translations: [Vitreous degeneration, bilateral] Onset: 3 12-13-2022 Chronic Other hereditary and degenerative nervous system conditions (7 sources) Hereditary essential tremor; Translations: [Essential and other specified forms of tremor] Onset: 3 02-27-2023 Chronic Other hereditary and degenerative nervous system conditions (20 sources) Essential tremor; Translations: [Essential tremor] Onset: 3 12-13-2022 Chronic Other liver diseases (5 sources) Lesion of liver; Translations: [Liver disease, unspecified] 08-18-2024 Chronic Other lower respiratory disease (5 sources) Dyspnea, unspecified Onset: 1 Resolved: 2 Episodic Other lower respiratory disease (4 sources) Dyspnea; Translations: [Shortness of breath] 08-20-2024 Episodic Other lower respiratory disease (1 source) Shortness of breath; Translations: [Shortness of breath] Onset: 5 Episodic Other non-traumatic joint disorders (2 sources) Pain in right knee; Translations: [Pain in joint, lower leg] 01-16-2024 Episodic Other nutritional; endocrine; and metabolic disorders (20 sources) Obesity caused by energy imbalance; Translations: [Morbid (severe) obesity due to excess calories] Onset: 3 01-16-2024 Chronic Other nutritional; endocrine; and metabolic disorders (20 sources) Body mass index 40+ - severely obese; Translations: [Body mass index (BMI) 50.0-59.9, adult] Onset: 4 01-16-2024 Chronic Other nutritional; endocrine; and metabolic disorders (1 source) Severe obesity; Translations: [Morbid (severe) obesity due to excess calories] Onset: 3 02-26-2023 Chronic Other skin disorders (2 sources) Lentiginosis; Translations: [Other melanin hyperpigmentation] 03-03-2023 Episodic Other skin disorders (4 sources) Fissure in skin; Translations: [Changes in skin texture] 09-03-2023 Episodic Other skin disorders (2 sources) Changes in skin texture; Translations: [Changes in skin texture] Onset: 4 Episodic Other upper respiratory disease (9 sources) Rhinitis; Translations: [Chronic rhinitis] 09-01-2023 Chronic Other upper respiratory disease (2 sources) Chronic rhinitis Chronic Phlebitis; thrombophlebitis and thromboembolism (3 sources) Venous thrombosis 07-09-2024 Episodic Pulmonary heart disease (2 sources) Pulmonary hypertension; Translations: [Pulmonary hypertension, unspecified] 06-18-2024 Chronic Residual codes; unclassified (20 sources) Obstructive sleep apnea syndrome; Translations: [Obstructive sleep apnea (adult)(pediatric)] Onset: 3 02-27-2023 Chronic Residual codes; unclassified (6 sources) Family history of malignant neoplasm of other organs or systems; Translations: [Family history of malignant neoplasm of other organs or systems] Onset: 1 Episodic Residual codes; unclassified (1 source) Edema, unspecified; Translations: [EDEMA UNSPECIFIED] Onset: 2 Episodic Residual codes; unclassified (6 sources) Localized edema Onset: 1 Resolved: 2 Episodic Residual codes; unclassified (1 source) Family history of malignant melanoma; Translations: [Family history of malignant neoplasm of other organs or systems] 09-03-2023 Episodic Retinal detachments; defects; vascular occlusion; and retinopathy (20 sources) Nonexudative age-related macular degeneration; Translations: [Nonexudative age-related macular degeneration, bilateral, early dry stage] Onset: 3 12-13-2022 Chronic Septicemia (except in labor) (2 sources) Sepsis due to Actinomyces; Translations: [Actinomycotic sepsis] 06-18-2024 Episodic Unclassified (3 sources) Drug therapy finding 07-09-2024 Urinary tract infections (2 sources) Acute cystitis; Translations: [Acute cystitis without hematuria] 08-20-2024 Episodic Past or Other Problems Problem Classification Problem Date Documented Da te Episodic/Chronic Allergic reactions (6 sources) Dermatitis, unspecified; Translations: [Inflammatory dermatosis] Onset: 07-09-2022 02-27-2023 Episodic Chronic kidney disease (11 sources) Chronic kidney disease; Translations: [Chronic kidney disease, stage 3 unspecified] Onset: 04-18-2021 Resolved: 10-23-2021 Genitourinary symptoms and ill-defined conditions (3 sources) Acute retention of urine Onset: 05-31-2024 07-09-2024 Episodic Melanomas of skin (20 sources) Personal history of malignant melanoma of skin; Translations: [History of malignant melanoma of the skin] Onset: 09-13-2020 03-03-2023 Episodic Mood disorders (15 sources) Mood disorders Onset: 02-03-2020 02-03-2020 Neoplasms of unspecified nature or uncertain behavior (6 sources) Neoplasm of uncertain behavior of skin; Translations: [Neoplasm of uncertain behavior of skin] Onset: 07-09-2022 02-27-2023 Episodic Other aftercare (1 source) half-way (current) use of insulin; Translations: [half-way (current) use of insulin] Onset: 10-22-2022 Episodic [...] infarction] Onset: 02-27-2023 Resolved: 01-16-2024 02-27-2023 Episodic Comment on above: pt states about 3-4 years ago Skin and subcutaneous tissue infections (3 sources) Furuncle; Translations: [Furuncle, unspecified] Onset: 03-03-2023 03-03-2023 Episodic Unclassified (15 sources) Onset: 02-03-2020 02-03-2020 Unclassified (2 sources) Patient encounter status 08-20-2024 Results Test Name Value Interpretation Reference Range Facility CNOVon 10-04-2024 CNOV Office Visit (UROLAV ) CHLOE PICKENS ([id number]) 1950 F Date Time Provider Department 10/04/24 3:00 PM CHANELL TATUM UROLAV During your visit today, we recorded the following information about you: Chanell Tatum MD 10/04/2024 9:06 PM Signed PATIENT INFO: Chloe Pickens 74 year old REFERRING PROVIDER.: No referring provider defined for this encounter. PCP: No primary care provider on file. 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 Has hx of cystolitholapaxy. Hx of stones, first stone 15 years ago that required stenting. She initially presented after she was scheduled for ESWL at OSH for management of a [address] identified stone, but was interested in additional options. Last OV 09/13/24 pt with some L sided flank pain. Endorsed that she was found to be septic earlier in the year at OSH, and was then later also hospitalized for infection. At this point, she explained, that she was found to have stones on CT as described above. On prof fawn today. Planned for CT ISAK. Interval hx Imaging: CTF 09/16/24: bilateral stones up ~ 8 x 12 mm on L side. 5 mm bladder stone nearing R UVJ. Hypodense hepatic lesion. Today the patient is accompanied by her and her daughter. Occasionally, has some flank pain- usually on L. No problems with bladder emptying. No results found for: CREAT No results found for: PSA No results found for: COLOR , CLARITY , UGLUC , UBILI , UKET , SPGR , UHB , UPH , UPROT , UROBILINOGEN , NITRITES , LEUKEST ALLERGIES Allergen Reactions Lanolin Unknown Doxycycline Rash, Unknown Other Reaction(s): hives/angioedema IMAGING: CT Flank 09/16/24 Right kidney and ureter: 2 mm nonobstructing stone in the lower pole of the right kidney. 5 mm stone near the right vesicoureteral junction. This could either be in the dependent portion of the right urinary bladder or the distal right ureter. There is no right hydroureteronephrosis. Left kidney and ureter: 5 mm nonobstructing stone in the midpole of the left kidney. Within the lower pole of the left kidney there are adjacent 5 and 4 mm nonobstructing stones. No ureteral calculi. No hydroureteronephrosis. Bladder: 5 mm stone near the right vesicoureteral junction as described above. MEDICATIONS: allopurinol (ZYLOPRIM) 100 mg tablet Take 100 mg by mouth once daily. Biotin 10 mg tab Take 10 mg by mouth. cephALEXin (KEFLEX) 250 mg capsule Take 1 capsule by mouth once daily. dulaglutide (TRULICITY) 0.75 mg/0.5 mL pen injector Inject 1.5 mg subcutaneously one time a week. fenofibrate nanocrystallized (TRICOR) 145 mg tablet Take 1 tablet by mouth daily with food. apixaban (ELIQUIS) 5 mg tab(s) Take 5 mg by mouth two times a day. furosemide (LASIX) 40 mg tablet Take 40 mg by mouth once daily. losartan (COZAAR) 100 mg tablet Take 1 tablet by mouth every morning. insulin aspart U-100 (NOVOLOG FLEXPEN U-100 INSULIN) 100 unit/mL (3 mL) Inject 50 Units subcutaneously two times a day. omeprazole (PRILOSEC) 20 mg capsule Take 20 mg by mouth once daily. Vit A,C,W-Hkex-Sawwme (PRESERVISION AREDS) 4,296 mcg-226 mg-90 mg cap 1 capsule. topiramate (TOPAMAX) 25 mg tablet Take 25 mg by mouth two times a day. loperamide (IMODIUM) 2 mg cap(s) Take 2 mg by mouth four times a day as needed. verapamil SR (CALAN SR) 240 mg CR tablet Take 240 mg by mouth daily at bedtime. HISTORIES No past medical history on file. No past surgical history on file. No family history on file. REVIEW OF SYSTEMS GENERAL: No fever, chills, weight loss, or fatigue. HEAD AND NECK: No blurred vision, cataracts, or hearing loss. CARDIOVASCULAR: NO CHEST PAIN, PALPITATIONS, ANKLE EDEMA RESPIRATORY: No chronic cough, wheezing, dyspnea, hemoptysis. GENITOURINARY: as above GI: Negative for abdominal discomfort or fecal incontinence PHYSICAL EXAMINATION There were no vitals taken for this visit. General appearance: Wheelchair. Well appearing, alert, in no acute distress, and well-hydrated, well nourished Skin: Skin color, texture, turgor normal, no suspicious rashes or lesions Head: Normocephalic, no masses, lesions, tenderness or abnormalities RESP: Normal effort, no retractions or purse-lip breathing. Genitourinary: FEMALE EXAM: Exam NOT Indicated ASSESSMENT 1. Calculus of kidney - ICD9: 592.0, ICD10: N20.0 Chloe Pickens is a 74 year old year old female who presents today for follow up. Today the patient is accompanied by her and her daughter. Occasionally, has some flank pain- usually on L. No problems with bladder emptying. Reviewed mutually actual CT images from 09/16/24- large ~12 x 8 mm L sided nonobstructive stone. Additionally, there are (more content not included)... Normal [facility] CNCOon 09-20-2024 CNCO Letter Text Normal [facility] CNPNon 09-19-2024 CNPN Telephone (UROLAV) CHLOE PICKENS ([id number]) 1950 F Date Time Provider Department 09/19/24 CHANELL TATUM UROLAV During your visit today, we recorded the following information about you: Chanell Tatum MD 09/19/2024 8:05 PM Signed Please advise the patient, will discuss kidney stones at the visit. Lesion suggested in the liver, will need further characterization, ordered MRI of the liver. This lesion should be discussed with primary doctor. Please help the patient schedule the MRI Continue with plans for office visit as scheduled. Thank you MD Josiah Cuadra Shannon M RN 09/20/2024 8:44 AM Signed Spoke with patient. She stated that she has a known hemangioma on her liver and has had it for the last 50+ years. She has had extensive evaluation on it over the years and does not feel that she needs the CT scan or further follow up as she knows what it is. Advised the orders are in for CT of liver if she changes her mind and that she should follow up with PCP regarding this if she changes her mind. I let her know I would update Dr. Tatum and that her follow up with him for kidney stones remains scheduled for 10/04/24. Pt agreeable. Allergies As of Date: 09/19/2024 Noted Allergy Reaction LANOLIN 10/24/2022 16 - Unknown DOXYCYCLINE 06/03/2016 2 - Rash 16 - Unknown Comments: Other Reaction(s): hives/angioedema Date Reviewed: 09/13/2024 Reviewed by: Chanell Tatum MD - Fully Assessed Primary Visit Diagnosis:Liver lesion [K76.9] Order(s):MRI LIVER WO/W IVCON [[id number]] Order #: [id number] FUTURE iv contrast (will be provided with radiology test)MRI Liver Inject, intravenously, once for 1 dose. No IV access, insert saline lock prior to the beginning of sedation, infusion, injection of imaging exam. Discontinue saline lock post exam. If Pt. has a central line or IVAD, may access for administration according to line specific nursing protocol. Once exam is complete flush line and de-access according to line specific nursing protocol in the MR contrast administration guidelines link.Disp: 1 eachRfl: 0 Prescriptions as of 09/20/2024 - iv contrast (will be provided with radiology test) MRI Liver Inject, intravenously, once for 1 dose. No IV access, insert saline lock prior to the beginning of sedation, infusion, injection of imaging exam. Discontinue saline lock post exam. If Pt. has a central line or IVAD, may access for administration according to line specific nursing protocol. Once exam is complete flush line and de-access according to line specific nursing protocol in the MR contrast administration guidelines link. - allopurinol (ZYLOPRIM) 100 mg tablet Take 100 mg by mouth once daily. - Biotin 10 mg tab Take 10 mg by mouth. - cephALEXin (KEFLEX) 250 mg capsule Take 1 capsule by mouth once daily. - dulaglutide (TRULICITY) 0.75 mg/0.5 mL pen injector Inject 1.5 mg subcutaneously one time a week. - fenofibrate nanocrystallized (TRICOR) 145 mg tablet Take 1 tablet by mouth daily with food. - apixaban (ELIQUIS) 5 mg tab(s) Take 5 mg by mouth two times a day. - furosemide (LASIX) 40 mg tablet Take 40 mg by mouth once daily. - losartan (COZAAR) 100 mg tablet Take 1 tablet by mouth every morning. - insulin aspart U-100 (NOVOLOG FLEXPEN U-100 INSULIN) 100 unit/mL (3 mL) Inject 50 Units subcutaneously two times a day. - omeprazole (PRILOSEC) 20 mg capsule Take 20 mg by mouth once daily. - Vit A,C,H-Gfkm-Rdxwyx (PRESERVISION AREDS) 4,296 mcg-226 mg-90 mg cap 1 capsule. - topiramate (TOPAMAX) 25 mg tablet Take 25 mg by mouth two times a day. - loperamide (IMODIUM) 2 mg cap(s) Take 2 mg by mouth four times a day as needed. - verapamil SR (CALAN SR) 240 mg CR tablet Take 240 mg by mouth daily at bedtime. Problem List As Of Date: 09/19/2024 (None) Prescriptions ordered this encounter Disp Refills Start End IV CONTRAST (RADIOLOGY PROCEDURE) - * 1 ea* 0 09/19/2024 09/20/2024 Class: In Office Sig: MRI Liver Inject, intravenously, once for 1 dose. No IV access, insert saline lock prior to the beginning of sedation, infusion, injection of imaging exam. Discontinue saline lock post exam. If Pt. has a central line or IVAD, may access for administration according to line specific nursing protocol. Once exam is complete flush line and de-access according to line specific nursing protocol in the MR contrast administration guidelines link. Encounter Status:Closed by CHANELL TATUM on 09/19/24 [facility] CT FLANK WO IVCONon 09-17-19 CT FLANK WO IVCON * * *Final Report* * * DATE OF EXAM: Sep 16 2024 2:16PM [facility] 0529 - CT FLANK WO IVCON / PROCEDURE REASON: Calculus of kidney * * * * Physician Interpretation * * * * RESULT: EXAMINATION: CT ABDOMEN AND PELVIS WITHOUT IV CONTRAST (Renal stone protocol) CLINICAL HISTORY: Nephrolithiasis. TECHNIQUE: Non-contrast imaging of the abdomen and pelvis was performed through the urinary tract. Study performed without intravenous or oral contrast to evaluate for urinary tract calculus. MQ: [id number] Contrast: IV contrast: None Oral contrast: None CT Radiation dose: Integrated dose-length product (DLP) for this visit = 780 mGy*cm. CT Dose Reduction Employed: Automated exposure control (AEC) COMPARISON: None. RESULT: Limitations: Unenhanced imaging is limited for the evaluation of some renal and other intra-abdominal and pelvic pathology. Urinary Tract: Right kidney and ureter: 2 mm nonobstructing stone in the lower pole of the right kidney. 5 mm stone near the right vesicoureteral junction. This could either be in the dependent portion of the right urinary bladder or the distal right ureter. There is no right hydroureteronephrosis. Left kidney and ureter: 5 mm nonobstructing stone in the midpole of the left kidney. Within the lower pole of the left kidney there are adjacent 5 and 4 mm nonobstructing stones. No ureteral calculi. No hydroureteronephrosis. Bladder: 5 mm stone near the right vesicoureteral junction as described above. Abdomen and Pelvis: Liver: Within segment 8 of the liver, there is a 4.0 x 3.6 cm hypodense lesion with areas of peripheral and central calcification. This is not adequately evaluated on a noncontrast CT scan. Biliary: Cholecystectomy. Spleen: No splenomegaly. Pancreas: Unremarkable. Adrenals: Normal. GI Tract: No bowel obstruction. Mild diverticulosis of the sigmoid colon. Lymph Nodes: No lymphadenopathy. Mesentery/peritoneum: No ascites. Pelvis: Area of calcification along the posterior uterus, possibly related to a calcified uterine fibroid. Bones and Soft Tissues: Degenerative changes. Lower thorax: Limited evaluation of the lower chest and straight scattered areas of discoid atelectasis or linear scarring. Localizer images: No additional findings. IMPRESSION: 1. Bilateral nonobstructing renal calculi, the largest of which measures 5 mm. Additionally, there is a 5 mm stone near the right vesicoureteral junction on today's CT scan. This could be in the distal right ureter or within the dependent portion of the urinary bladder based on the position on today's exam. Options for further evaluation would include a CT urogram, to better assess the location of the right ureter relative to the stone, or evaluation with bladder ultrasound to assess if the calcification may be mobile. 2. Within segment 8 of the liver, there is a 4.0 x 3.6 cm hypodense lesion with areas of peripheral and central calcification. This is not adequately evaluated on a noncontrast CT scan. Would advise further evaluation with an MRI of the liver with and without contrast. This will be able to evaluate the lesion with greater specificity. ACTIONABLE RESULT: FOLLOW-UP Acuity: Actionable Findings: Kidneys/Ureters/Bladder Routing Code: GU_1 Recommendation: Unlisted Recommendation (see report) Time Frame: Additional evaluation as described in the impression COMMUNICATION: Results will be communicated with the ordering provider via [employer] staff message or phone message by [facility] Support [facility] within 2 business days of report finalization. --END OF FINDING-- Acuity: Actionable Findings: Liver Routing Code: LV_1 Recommendation: MRI LIVER WO/W IVCON (add Dotarem in comments) TimeFrame: 4-6 weeks --END OF FINDING-- Algorithms for management of incidental imaging findings can be found on the [facility] Intranet Sharepoint site at: [email or web address] 0Findi ngs%[email or web address]/Form s/[email or web address] Transcribe Date/Time: Sep 17 2024 7:51A Dictated by: ELOISA REED MD This examination was interpreted and the report reviewed and electronically signed by: ELOISA REED MD on Sep 17 2024 8:02AM EST Thank you for allowing us to participate in the care of your patient. Should there be any questions regarding this interpretation, please call [phone]. If you are unable to reach us at the number above, please feel free to contact [facility] at [phone]. [id number] ACTIONABLE Invalid Interpretation Code [facility] CNOVon 09-13-2024 CNOV Office Visit (UROLAV ) CHLOE PICKENS ([id number]) 1950 F Date Time Provider Department 09/13/24 3:00 PM CHANELL TATUM UROLAV During your visit today, we recorded the following information about you: Chanell Tatum MD 09/13/2024 7:34 PM Signed PATIENT INFO: Chloe iPckens 74 year old REFERRING PROVIDER.: No referring provider defined for this encounter. PCP: No primary care provider on file. CC: Nephrolithiasis HPI: Chloe Pickens is a 74 year old year old female with a PMH significant for asthma, CKD stage IV 2/2 DMII, kidney stones, HTN, GERD, bladder stone who presents today for evaluation of nephrolithiasis. Has hx of cystolitholapaxy. Hx of stones, first stone 15 years ago that required stenting. Has CT identified nonobstructive stones bilaterally, largest being 9 mm in LLP. Was scheduled for ESWL at OSH but deferred to discuss options, namely URS. 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 Today the patient is accompanied by her [place]. No images today. She was taken to OSH earlier this year, found to be septic. Later on 07/01/24 hospitalized due to infection and found to have nephrolithiasis. Discharged 07/03/24. Some L sided flank pain today. On keflex for prophylactic use. No results found for: CREAT No results found for: PSA No results found for: COLOR , CLARITY , UGLUC , UBILI , UKET , SPGR , UHB , UPH , UPROT , UROBILINOGEN , NITRITES , LEUKEST ALLERGIES Not on File IMAGING: MEDICATIONS: No prescriptions on file. HISTORIES No past medical history on file. No past surgical history on file. No family history on file. REVIEW OF SYSTEMS GENERAL: No fever, chills, weight loss, or fatigue. HEAD AND NECK: No blurred vision, cataracts, or hearing loss. CARDIOVASCULAR: NO CHEST PAIN, PALPITATIONS, ANKLE EDEMA RESPIRATORY: No chronic cough, wheezing, dyspnea, hemoptysis. GENITOURINARY: as above GI: Negative for abdominal discomfort or fecal incontinence PHYSICAL EXAMINATION There were no vitals taken for this visit. General appearance: Wheelchair, Well appearing, alert, in no acute distress, and well-hydrated, well nourished Skin: Skin color, texture, turgor normal, no suspicious rashes or lesions Head: Normocephalic, no masses, lesions, tenderness or abnormalities RESP: Normal effort, no retractions or purse-lip breathing. Genitourinary: FEMALE EXAM: Exam NOT Indicated ASSESSMENT AND PLAN OF MANAGEMENT 1. Calculus of kidney - ICD9: 592.0, ICD10: N20.0 (primary diagnosis) 2. Calculus of bladder - ICD9: 594.1, ICD10: N21.0 74 year old female with report from OSH that reads that she had CT on 07/01/24 that visualized nonobstructive stones in bilateral calyces, largest being LLP 9 mm. Also with 5 mm bladder stone on this exam. No images at visit. Need updated study and actual images to proceed with a procedural plan. She is also on prophylactic keflex. Amendable to update imaging, will do this at [facility]. Discussed generalized dietary modifications for stone prevention, included necessity of following direction of PCP, cardiology, nephrology, if applicable. -CT stone protocol ISAK -RTC to discuss results Patient to call or present to the ER if : Fever more than 101.5F Flank or abdominal pain Decreased urine output Unable to void Not feeling well Blood in urine My final recommendations will be communicated back to the requesting physician by way of shared Medical record or letter to requesting physician via US mail. The patient is seen and examined by Dr. Chanell Tatum and the following reflects his service. Scribed by Aj Maza. I agree with the Chief Complaint, ROS, and Past Histories independently gathered by the clinical information support project manager and the remaining scribed note accurately describes my personal service to the patient. This note was partially generated using [employer] voice recognition system. MD Rc Cuadra Wahib, MD 09/13/2024 3:[address] scan stone protocol Followed by an office visit Patient to call or present to the ER if : Fever more than 101.5F Flank or abdominal pain Decreased urine output Unable to void Not feeling well Blood in urine Allergies As of Date: 09/13/2024 Noted Allergy Reaction LANOLIN 10/24/2022 16 - Unknown DOXYCYCLINE 06/03/2016 2 - Rash 16 - Unknown Comments: Other Reaction(s): hives/angioedema Date Reviewed: 09/13/2024 Reviewed by: Chanell Tatum MD - Fully Assessed Reason for Visit: New Patient [172] Cmt: Hospital inpatient stay and found the stones. Was at [facility] 2024 Primary Visit Diagnosis:Calculus of kidney [N20.0] Other Visit Diagnosis:Calculus of bladder [N21.0] Order(s):CT FLANK WO IVCON [[id number]] Order #: [id number] FUTURE Prescriptions as of 09/13/2024 - allopurinol (ZYLOPRIM) 100 mg tablet Take 100 mg by mouth once daily. - Biotin 10 mg tab Take 10 mg (more content not included)... Normal [facility] CNPNon 09-07-2024 CNPN Telephone (UROLAV) CHLOE PICKENS ([id number]) 1950 F Date Time Provider Department 09/07/24 CHANELL TATUM UROALLEN During your visit today, we recorded the following information about you: Eva Bray, RN 09/07/2024 2:21 PM Signed Received fax from [facility] for consult for kidney stones to Dr. Tatum. Pt already has appointment scheduled with Dr. Tatum for next week. Will have all patient information we received scanned into the chart. Allergies As of Date: 09/07/2024 (Not on File) Date Reviewed: Never Reviewed Problem List As Of Date: 09/07/2024 (None) Encounter Status:Closed by EVA BRAY on 09/07/24 [facility] Ambulatory Visit Summaryon 0 09-06-2024 Ambulatory Visit Summary Ambulatory Visit Summary CHLOE PICKENS :1950 Visit Date:09/06/2024 Ambulatory Visit Instructions Your Diagnosis Kidney stones Bladder stone Chronic kidney disease stage 4 due to type 2 diabetes mellitus Anticoagulated Your Care Team Attending Physician - WYATT CARMICHAEL, JESSICA Primary Care Physician - RAJESH MERCER MD This Is Your Medications List Contact prescribing physician if questions or concerns albuterol (Albuterol (Eqv-ProAir HFA) 90 mcg/inh inhalation aerosol) albuterol (albuterol 0.083% Inh Isatu 3 mL) allopurinol (allopurinol 100 mg Tab) apixaban (Eliquis 5 mg oral tablet) biotin (biotin 10 mg oral tablet) carvedilol (carvedilol 12.5 mg Tab) fenofibrate (fenofibrate 145 mg Tab) finerenone (Kerendia 20 mg oral tablet) fluticasone-vilanterol (Breo Ellipta 50 mcg-25 mcg/inh. inhalation powder) furosemide (furosemide 20 mg Tab) furosemide (furosemide 40 mg Tab) insulin aspart (NovoLOG FlexPen 100 units/mL injectable solution) insulin degludec (Tresiba FlexTouch 200 units/mL subcutaneous solution) insulin degludec (Tresiba) loperamide (loperamide 2 mg Cap) losartan (losartan 100 mg Tab) multivitamin with minerals (ICaps AREDS 2) omeprazole (omeprazole 20 mg Cap-DR) semaglutide (Ozempic (1 mg dose) 4 mg/3 mL subcutaneous solution) topiramate (topiramate 50 mg Tab) tramadol (traMADOL 50 mg Tab) verapamil (verapamil 240 mg Cap-ER) Procedures Performed Excision of melanoma, History of cataract extraction, History of cholecystectomy, History of operative procedure on knee, History of tonsillectomy, Intravitreal injection of a pharmacologic agent (separate procedure), Ligation of fallopian tube, Lithotripsy of calculus of urinary bladder, Pulmonary thromboendarterectomy, Total knee arthroplasty, Total knee arthroplasty. Discharge Vitals Heart Rate (Peripheral) 75 Blood Pressure 134/76 Height 157 cm Height 62 in Weight 126 kg Weight 277.782 lb BMI 51.12 What to do next You Need to Schedule the Following Appointments Follow Up with WYATT CARMICHAEL, NIYAH LOPEZ When: Where: Someone Will Contact You Regarding These Appointments [facility] [place]ulatory Referral, Urology, [facility], 09/06/24 12:02:00 EDT, Kidney stones Medications What How Much When Instructions Unchanged albuterol (Albuterol (Eqv-ProAir HFA) 90 mcg/ inh inhalation aerosol) 2 Inhalation Inhalation Every 4 hours as needed for Shortness of breath or wheezing Contact prescribing physician if questions or concerns Unchanged albuterol (albuterol 0.083% Inh Isatu 3 mL) 3 Milliliter Nebulized inhalation (aerosol) Every 6 hours as needed for Shortness of breath or wheezing Contact prescribing physician if questions or concerns Unchanged allopurinol (allopurinol 100 mg Tab) 1 Tablets By Mouth Every day Contact prescribing physician if questions or concerns Unchanged apixaban (Eliquis 5 mg oral tablet) 1 Tablets By Mouth 2 times a day Contact prescribing physician if questions or concerns Unchanged biotin (biotin 10 mg oral tablet) 1 Tablets By Mouth Every day Oral, 0 Refill(s) Contact prescribing physician if questions or concerns Unchanged carvedilol (carvedilol 12.5 mg Tab) 1 Tablets By Mouth 2 times a day Contact prescribing physician if questions or concerns Unchanged fenofibrate (fenofibrate 145 mg Tab) 1 Tablets By Mouth 2 times a day Contact prescribing physician if questions or concerns Unchanged finerenone (Kerendia 20 mg oral tablet) 1 Tablets By Mouth Every day Contact prescribing physician if questions or concerns Unchanged fluticasone-vilanterol (Breo Ellipta 50 mcg-25 mcg/ inh. inhalation powder) 1 Inhalation Inhalation Every day Contact prescribing physician if questions or concerns Unchanged furosemide (furosemide 20 mg Tab) 1 Tablets By Mouth Every day Contact prescribing physician if questions or concerns Unchanged furosemide (furosemide 40 mg Tab) 1 Tablets By Mouth Every day Contact prescribing physician if questions or concerns Unchanged insulin aspart (NovoLOG FlexPen 100 units/ mL injectable solution) 50 Units Subcutaneous Twice a day (before meals) Contact prescribing physician if questions or concerns Unchanged insulin degludec (Tresiba FlexTouch 200 units/ mL subcutaneous solution) 60 Units Subcutaneous 2 times a day Contact prescribing physician if questions or concerns Unchanged insulin degludec (Tresiba) 60 Units Subcutaneous 2 times a day Contact prescribing physician if questions or concerns Unchanged loperamide (loperamide 2 mg Cap) 1 Capsules By Mouth Every 4 hours as needed for as needed for loose stool Contact prescribing physician if questions or concerns Unchanged losartan (losartan 100 mg Tab) 1 Tablets By Mouth Every day Contact prescribing physician if questions or concerns Unchanged multivitamin with minerals (ICaps AREDS 2) See instructions Contact prescribing physician if questions or concerns (more content not included)... Normal [facility] Urology Office/Clinic Noteon 09-06-2024 Urology Office/Clinic Note Urology Office/Clinic Note Chief Complaint follow up HPI Staff 74 year old female here for recheck before rescheduling ESWL Previous DX: kidney stones, bladder stone, H/O kidney stones and chronic kidney disease stage 4 due to type 2 diabetes. Patient denies any dysuria or gross hematuria. Denies any flank or abdomen pain. History of Present Illness Tests reviewed: reviewed UA I have reviewed the previous health record information and history for this patient from Dr. Elias I have reviewed and verified the staff HPI to be accurate for this encounter. There have been no associated fever, chills, flank pain, or blood in the urine. Denies any urinary infections since last encounter. Review of Systems ROS - Provider Constitutional: denies weight loss, denies hot flashes. Eyes: denies eye problems. Gastrointestinal: denies nausea, denies vomiting. Cardiovascular: denies chest pain or angina. Integumentary: no dryness Musculoskeletal: denies musculoskeletal symptoms. ENMT: denies otolaryngeal symptoms. Respiratory: no shortness of breath. Heme/Lymph: denies easy bleeding tendency, denies easy bruising tendency. Psychiatric: no confusion, no anxiety. Genitourinary: See HPI. Physical Exam Vitals & Measurements HR: 75(Peripheral) BP: 134/76 HT: 157 cm HT: 62 in WT: 277.782 lb WT: 126 kg BMI: 51.12 General Appearance: alert , no acute distress, well nourished, well developed female. Assessment/Plan Hx of essential familial tremor and diabetic retinopathy. On semaglutide. Pt accompanied by today. Portions of this record may have been created with voice recognition artificial intelligence software, specifically [employer] and or [employer]. Substitutions may have occurred due to the inherent limitations of voice recognition and artificial intelligence software. 1. Kidney stones (N20.0: Calculus of kidney) Prior hx of stones 15 yrs ago, required stent, via urethral through Dr Kennedy or another provider. On topiramate. CT AP wo con 07/01/24 [facility] - Nonobstructing stones in the BL calyces with largest being LLP 9 mm. Pt was to be scheduled for L ESWL however high risk for complications given comorbidities. Ambulating with a wheelchair today due to becoming severely SOB after having to walk. Also discussed with pt that she may benefit from ureteroscopy rather than ESWL. Strongly encouraged a referral to a tertiary care center. Pt also states a few weeks ago she ran a fever of 101.3 along with chills. Pt states it was short lived, less than 24 hours. Pt states she had Cefdinir at home from previously extended course and ended up taking it due to ESWL being postponed. Discussed starting a low dose prophylactic Keflex given pt's history of sepsis and pt being anxious about sepsis recurring. -Refer to [facility] -Stop Cefdinir, start Keflex 250mg qd x 30 days for prophylactic use 2. Bladder stone (N21.0: Calculus in bladder) CT AP wo con 07/01/24 [facility] - Urinary bladder stone 5 mm. Bladder US 07/01/24 [facility] - 8 mm bladder stone. Mild bladder wall thickening. 3. 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 Furosemide bid. Frequency d/t this. Not a candidate for IV contrast. 4. 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 Elevated risk of periop complications. Patient is a 74-year-old female with a nonobstructing left renal stone. We initially plan on doing an ESWL. Due to her body habitus this is prohibitive. Patient has history of anticoagulation on Eliquis, recurrent UTIs. I discussed with the patient that due to her worsening respiratory status she would benefit from referral to a higher acuity care center and that she will be referred to [facility]. She will follow-up with them for surgical intervention. Follow-up With When Contact Information WYATT CARMICHAEL, NIYAH LOPEZ Additional Instructions: Refer to [facility] Patient Education Kidney Stones, [id number] IZa, personally scribed for Dr. Elias on 09/06/2024 12:04:07. . Documentation recorded by the scribeZa, accurately reflects the services(s) I performed and decisions made by me. Authenticated by Dr. Briscoe on 09/06/2024 12:15:16. 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 Normal [facility] Comment on above: Result Comment: Elec tronically Signed By: WYATT CARMICHAEL, JESSICA\.br\Date and Time Signed: 09/06/24 12:16 EDT\.br\Electronically Co-Signed By: Za Alexandra\.br\Date and Time Co-Signed: 09/06/24 12:04 EDT B-Type Natriuretic Peptideon 08-27-2024 Natriuretic peptide B (Bld) [Mass/Vol] 15.0 pg/mL Normal 5-100 [facility] Comment on above: Result Comment: PERF ORMED BY: [place] [address] PATHOLOGIST REGIONAL VICE PRESIDENT [employer] OLIVERIO ARTHUR M.D. Performed By: #### B POWERHOUSE ENGINEER #### [address] echo transthoracicon [facility] echo transthoracic [facility] [place] [address] [place] [address] Echocardiogram Signed Patient: Chloe Pickens MR#: [id number] : 1950 Acct:[id number] Age/Sex: 74 / F ADM Date: 08/27/24 Loc: Room: Type: [facility] Attending Dr: Rajesh Mercer II, MD Ordering Provider: Rajesh Mercer II, MD Date of Service: 08/27/24/ [facility] echo transthoracic: SOB, ABN EKG, PREOP Copies to: MD Gracia Francis II, MD, [facility] BSA: 2.2 m2 BP: 275/66 mmHg HR: 63 Reason For Study: SOB, ABN EKG, PREOP History: Hyperlipidemia,Hyperten tequila,DM,family history CAD Interpretation Summary Mild concentric left ventricular hypertrophy. Ejection Fraction = 60-65%. A variety of Doppler measurements indicate normal left ventricular diastolic function. Trivial pericardial effusion. Procedure/Quality: A two-dimensional transthoracic echocardiogram with color flow and Doppler was performed. The study was technically fair in quality. Left Ventricle: Mild concentric left ventricular hypertrophy. Left ventricular systolic function is normal. Ejection Fraction = 60-65%. A variety of Doppler measurements indicate normal left ventricular diastolic function. Left Atrium: The left atrium appears normal in size. The atrial septum appears normal. Right Atrium: The right atrium appears normal in size. Right Ventricle: The right ventricular size, thickness and function are normal. Aortic Valve: The aortic valve is normal in structure and function. Mitral Valve: The mitral valve is normal in structure and function. Tricuspid Valve: The tricuspid valve is normal in structure and function. Pulmonic Valve: The pulmonic valve is not well seen, but is grossly normal. Arteries: The aortic root is normal size. Pericardium/Pleura: Trivial pericardial effusion. There is no pleural effusion. IVC/Hepatic Veins: The IVC is normal in size with an inspiratory collapse of greater then 50%, suggesting normal right atrial pressure. Miscellaneous: No thrombus, vegetation or mass is seen. Measurements with Normals IVSd: 1.5 cm (0.7-1.1 cm)LVIDd: 4.3 cm (3.7-5.4 cm) LVPWd: 1.4 cm (0.7-1.1 cm)LVIDs: 2.9 cm (2.3-3.6 cm) LA dimension: 4.5 cm(2.3-4.0 cm)asc Aorta Diam: 3.6 cm(2.1-3.4cm) Doppler with Normals LV V1 max: 79.7 cm/sec (0.7-1.7m/s)MV E max tejal: 76.7 cm/sec(0.8-1.3m/s) MV A max tejal: 64.7 cm/sec(0.0-0.0m/s) MV E/A: 1.2 (<1.5) MMode/2D Measurements Calculations RVDd: 4.2 cm FS: 32.8 % LVOT diam: 2.0 cmLAV(MOD-sp4): TAPSE: 2.3 cm EDV(Teich): LVOT area: 55.6 ml RV S Tejal: 12.8 cm/sec 84.8 ml 3.2 cm2 LAV(MOD-sp2): ESV(Teich): 56.2 ml 32.6 ml EF(Teich): 61.5 % __ LA A2 area: 19.1 cm2 LA A4 area: 17.4 cm2 LA length (vol): 4.2 cm LA vol: 67.0 ml LA vol index: 30.3 ml/m2 Doppler Measurements Calculations MV dec time: MV V2 max: E/E' lat: MV dec slope: 0.17 sec 81.0 cm/sec 10.5 MV max P.6 mmHg E/E' med: 440.0 cm/sec2 MV V2 mean: 10.5 46.4 cm/sec MV mean P.0 mmHg MV V2 VTI: 19.3 cm MVA(VTI): 2.6 cm2 __ Ao V2 max: LV V1 max P.1 cm/sec 2.5 mmHg Ao max P.6 mmHg LV V1 mean PG: Ao mean P.2 mmHg 1.2 mmHg Ao V2 mean: LV V1 mean: 97.8 cm/sec 51.0 cm/sec Ao V2 VTI: 27.1 cm LV V1 VTI: 15.3 cm OBED(I,D): 1.8 cm2 OBED(V,D): 1.9 cm2 Transcribed By: SCV Performed At: 08/27/24 1343 Signed By: Gracia Lay MD, [facility] 08/27/24 1813 Normal [facility] Natriuretic peptide B [Mass/ Vol]on 08-27-2024 Natriuretic peptide B (Bld) [Mass/Vol] 15 pg/mL 5 - 100 pg/mL [facility] Healthcare [facility] Natriuretic peptide B [Mass/ Vol]Ordered By: Rajesh Mercer on 08-27-2024 Natriuretic peptide B (Bld) [Mass/Vol] BNP ser/plas 5-100 [facility] COAGULATIONOrdered By: Arcelia Denton on 08-18-2024 aPTT Coag (PPP) [Time] 36.5 s Normal 25.1 - 36.5 second(s) [facility] Comment on above: Interpretive Data: P arameter 15 days - 4 weeks 1 - 5 months 6 - 11 months 1 - 5 years 6 - 10 years 11 - 17 years PTT Mean: 35.4 (27.6-45.6) Mean: 33.5 (24.8-40.7) Mean: 32.4 (25.1-40.7) Mean: 31.6 (24.0-39.2) Mean: 31.6 (26.9-38.7) Mean: 31.0 (24.6-38.4) Pediatric Reference ranges were obtained from a study by [place] et al. prepared from 1437 samples obtained at 7 different centers using the same coagulation reagent and instrumentation as [facility]. Currently there are no coagulation studies available worldwide for children to 14 days, and no normal ranges. Heparin therapeutic range (represented by Anti-Factor Xa activity of 0.2 - 0.4 U/mL) corresponds to PTT of 56.6 - 109.0 sec. INR Coag (PPP) [Relative time] 1.01 {INR} Invalid Interpretation Code [facility] Comment on above: Interpretive Data: I NR results are specifically intended to assess patients stabilized on long-term Anticoagulation therapy suggested INR s Less Intensive Anticoagulation 2.0 3.0 Conventional Range 3.0 4.5 PT Coag (PPP) [Time] 11.3 s Normal 9.4 - 1 2.5 second(s) [facility] Comment on above: Interpretive Data: 1 5 days - 4 weeks 1 - 5 months 6 -11 months 1 5 years 6 10 years 11 -17 years Mean: 11.2 (9.5 12.6) Mean: 11.0 (9.7 12.8) Mean: 11.0 (9.8 13.0) Mean: 11.3 (9.9 13.4) Mean: 11.7 (10.0 14.6) Mean: 11.8 (10.0 - 14.1) Pediatric Reference ranges were obtained from a study by elisabeth Colvin prepared from 1437 samples obtained at 7 different centers using the same coagulation reagent and instrumentation as [facility]. Currently there are no coagulation studies available worldwide for children to 14 days, and no normal ranges. PT & PTTon 04-16-2025 aPTT Coag (PPP) [Time] 36.5 second(s) Normal 25.1-36.[address] [facility] Comment on above: Result Comment: Para meter 15 days - 4 weeks 1 - 5 months 6 - 11 months 1 - 5 years 6 - 10 years 11 - 17 years PTT Mean: 35.4 (27.6-45.6) Mean: 33.5 (24.8-40.7) Mean: 32.4 (25.1-40.7) Mean: 31.6 (24.0-39.2) Mean: 31.6 (26.9-38.7) Mean: 31.0 (24.6-38.4) Pediatric Reference ranges were obtained from a study by [place] et al. prepared from 1437 samples obtained at 7 different centers using the same coagulation reagent and instrumentation as [facility]. Currently there are no coagulation studies available worldwide for children to 14 days, and no normal ranges. Heparin therapeutic range (represented by Anti-Factor Xa activity of 0.2 - 0.4 U/mL) corresponds to PTT of 56.6 - 109.0 sec. Performed By: #### 1 [id number] #### [facility] [address] [place] [address] INR Coag (PPP) [Relative time] 1.01 {INR} Invalid Interpretation Code [facility] Comment on above: Result Comment: INR results are specifically intended to assess patients stabilized on long-term Anticoagulation therapy suggested INR???s ???Less Intensive Anticoagulation??? 2.0 ??? 3.0 Conventional Range 3.0 ??? 4.5 Performed By: #### 1 [id number] #### [facility] [address] [place] [address] PT Coag (PPP) [Time] 11.3 second(s) Normal 9.4-12.[address] [facility] Comment on above: Result Comment: 15 d ays - 4 weeks 1 - 5 months 6 -11 months 1 ??? 5 years 6 ??? 10 years 11 -17 years Mean: 11.2 (9.5 ??? 12.6) Mean: 11.0 (9.7 ??? 12.8) Mean: 11.0 (9.8 ??? 13.0) Mean: 11.3 (9.9 ??? 13.4) Mean: 11.7 (10.0 ??? 14.6) Mean: 11.8 (10.0 - 14.1) Pediatric Reference ranges were obtained from a study by glenn Colvin al. prepared from 1437 samples obtained at 7 different centers using the same coagulation reagent and instrumentation as [facility]. Currently there are no coagulation studies available worldwide for children to 14 days, and no normal ranges. Performed By: #### 1 [id number] #### [facility] [address] [place] [address] XR Chest 2 Viewson XR Chest 2 Views Exam Date/Time: 08/18/2024 16:24 EDT Reason for Exam: P.A.T. Report IMPRESSION: NO EVIDENCE OF ACTIVE CHEST DISEASE. CLINICAL HISTORY: P.A.T.. COMMENT: The heart is upper limits of normal to borderline enlarged in size. There is mild tortuosity of thoracic aorta. There is calcification at the aortic arch. The mediastinum is otherwise unremarkable. No infiltration nor pleural effusion is evident. There are arthritic changes at the shoulders. Ordering Provider: Jhoan Zelaya FINAL REPORT Dictated: 08/18/2024 4:34 pm Jesús Orellana M.D. Signed (Electronic Signature): 08/18/2024 4:34 pm Signed by: Jesús Orellana M.D. Transcribed by: GENARO Technologist: DAYANA Farah [facility] Urology Office/Clinic Noteon 07-09-2024 Urology Office/Clinic Note Urology Office/Clinic Note Chief Complaint er f/u HPI Staff 74 year old female new patient here for [facility] ER follow up 06/30/24-07/03/24 for bladder stone, acute urinary retention. Pt was in 3 weeks previous to this due to sepsis. Last visit states had an MRI done that showed possible bladder stone that was believed tyo be causing the infection per pt and her . Pt denies any dysuria, states occasional blood in urine. Denies flank pain but has some lower abdominal pain. *furosemide 20 mg History of Present Illness Tests reviewed: UA, ED records, CT, MRI, US I have reviewed the previous health record information and history for this patient from [facility]. I have reviewed and verified the staff HPI to be accurate for this encounter. Review of Systems PHQ Score Initial Depression Screen Score: 0 SCORE ROS - Provider Constitutional: denies weight loss, denies hot flashes. Eyes: denies eye problems. Gastrointestinal: denies nausea, denies vomiting. Cardiovascular: denies chest pain or angina. Integumentary: no dryness Musculoskeletal: denies musculoskeletal symptoms. ENMT: denies otolaryngeal symptoms. Respiratory: no shortness of breath. Heme/Lymph: denies easy bleeding tendency, denies easy bruising tendency. Psychiatric: no confusion, no anxiety. Genitourinary: See HPI. Physical Exam Vitals & Measurements HR: 80(Peripheral) BP: 157/86 HT: 64 in HT: 162 cm WT: 124 kg WT: 273.373 lb BMI: 47.25 General Appearance: alert, no distress, well nourished, well developed female. Assessment/Plan Chloe Chao) is a 74 yo F new pt following up to [facility] ED visit on 06/30/24-07/03/24 for bladder stone, acute urinary retention. Hx of essential familial tremor and diabetic retinopathy. On semaglutide. Pt here with her today. 1. Kidney stones (N20.0: Calculus of kidney) CT AP wo con 07/01/24 [facility] - Nonobstructing stones in the BL calyces with largest being LLP 9 mm. Two recent hospitalizations. Taken by squad both times. Pneumoniae and sepsis. Reports blood cx grew common urinary tact bacterium. Explained pt likely had obstructing stone. Reviewed CT results with pt and using visual diagram. Counseled stones can harbor bacteria causing infection. Given hx of two UTIs and size of stones, procedure recommended. Discussed surgical intervention options including ESWL if visible on x-ray (less invasive, lower stone free rate) and ureteroscopy/laser litho with possible stent placement (more invasive, higher stone free rate). Risks and benefits of each discussed. Recommended ESWL with possible staged laser litho if needed since laser litho also has higher chance of infection. Recommend allowing pt's body to recover from recent hospitalization before proceeding with stone procedure. Pt agreeable to proceed with ESWL. Denies feeling of prolapse. Denies prior hx of UTIs. Baseline mild constipation, also intermittent diarrhea. Has 5 more days of abx left. Pt is very concerned about recurrence of sepsis. Offered to add 250 mg Keflex nightly up until the stone procedure. -Complete current abx course, then start Keflex 250 mg qhs. Sent to [facility]. -Will schedule Left ESWL. The procedure risks, benefits, details and treatment alternatives have been discussed with the patient. These include blood in the urine, infection, bleeding around the kidney, kidney bruising, inability to break up the stone, need for blood transfusion, blockage from stone fragments, and need for additional procedures, among others. Full informed consent has been obtained. Will order General anesthesia. 2. Bladder stone (N21.0: Calculus in bladder) CT AP wo con 07/01/24 [facility] - Urinary bladder stone 5 mm. Bladder US 07/01/24 [facility] - 8 mm bladder stone. Mild bladder wall thickening. Also recommended cysto given bladder stone finding and two UTIs. Pt agreeable. -Cysto at the same time as ESWL 3. History of kidney stones (Z87.442: Personal history of urinary calculi) Prior hx of stones 15 yrs ago, required stent, via urethral through Dr Kennedy or another provider. On topiramate. 4. 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 Furosemide bid. Frequency d/t this. Not a candidate for IV cont. 5. Anticoagulated (Z79.01: half-way (current) use of anticoagulants) Eliquis. Elevated risk of periop complications. -Will need to hold for ESWL Patient with multiple risk factors for stone formation including currently on topiramate, diabetic. I discussed with her that we had heard nonobstructing stone in the kidney she would benefit from extracorporal shockwave lithotripsy but due to her BMI, currently on Eliquis she may be better candidate for ureteroscopy, laser lithotripsy. We will determine based on stone features, ability to hold her blood thinners if we can proceed with ESWL versus ureteroscopy. I discussed with her double time voiding to ensure complete empt (more content not included)... Normal [facility] Comment on above: Result Comment: Elec tronically Signed By: WYATT CARMICHAEL, JESSICA\.john\Date and Time Signed: 07/09/24 15:39 EST Urine Cultureon 06-30-2024 Bacteria identified Cx Nom (U) >100,000 colonies/ml mixed bacterial skin contaminants 2 Days PERFORMED BY: [facility] [address] [place] [address] PATHOLOGIST REGIONAL VICE PRESIDENT [employer] OLIVERIO ARTHUR M.D. Normal [facility] Comment on above: Performed By: #### R ENAL, MG, [id number], CBCNO, URIC, PTH #### [facility] [address] Urine cultureOrdered By: Minerva Contreras on 06-30-2024 Bacteria identified Cx Nom (U) Urine culture [facility] ALL MAGNESIUMon 06-18-2024 Magnesium [Mass/Vol] 1.9 mg/dL 1.8 - 2 .4 [facility] (FOR REMOTE FH C USE)on 06-18-2024 Albumin [Mass/Vol] 3.3 g/dL Low 3.4 - 5.0 g/dL [facility] ALBUMIN GLOBULIN RATIO 0.9 NO [facility] ALP [Catalytic activity/Vol] 49 U/L 46 - 116 U/L [facility] ALT [Catalytic activity/Vol] 18 U/L 14 - 59 U/L [facility] Anion gap [Moles/Vol] 12.6 mmol/L NO [facility] AST [Catalytic activity/Vol] 18 U/L 15 - 37 U/L [facility] Bilirubin [Mass/Vol] 0.4 mg/dL 0.2 - 1 .0 mg/dL [facility] Calcium [Mass/Vol] 9.1 mg/dL 8.5 - 10. 1 mg/dL [facility] Chloride [Moles/Vol] 102 mmol/L 98 - 10 7 mmol/L [facility] CO2 [Moles/Vol] 26.6 mmol/L 21.0 - 32.0 mmol/L [facility] Creatinine [Mass/Vol] 1.36 mg/dL High 0.55 - 1.02 mg/dL [facility] GFR/1.73 sq M.predicted CKD-EPI (S/P/Bld) [Vol rate/Area] 46 Low >=60 mL/min/1.73 m 2 [facility] Globulin (S) [Mass/Vol] 3.8 g/dL [facility] Glucose [Mass/Vol] 172 mg/dL High 74 - 106 mg/dL [facility] Interpretation and review of laboratory results Abnormal [facility] Potassium [Moles/Vol] 4.2 mmol/L 3.5 - 5.1 mmol/L [facility] Protein [Mass/Vol] 7.1 g/dL 6.4 - 8.2 g/dL [facility] Sodium [Moles/Vol] 137 mmol/L 136 - 145 mmol/L [facility]H EGFR-NON AF MICRONESIAN 38 Low >=60 mL/min/1.73 m 2 [facility] Urea nitrogen [Mass/Vol] 29 mg/dL High 7.0 - 18.0 mg/dL [facility] Urea nitrogen/Creatinine [Mass ratio] 21.3 mg/mg [facility] No Panel Informationon 06-18 [facility] Urinalysis macro (dipstick) panel (U)on 06-18-2024 Bilirubin, UA Negative Negative - 4(70) +++ mg/dL [facility] Blood, UA Positive Negative - 50 Evens/mcL [facility] Glucose, UA Negative Negative - 2000(110) ++++ mg/dL [facility] Ketones, UA Negative Negative - 160(16) ++++ mg/dL [facility] Leukocytes, UA Trace Negative - 500+++ Therese/mcL [facility] Nitrite, UA Negative Negative - Positive [facility] pH, UA 7 5 - 9 [facility] Protein, UA Trace Negative - 2000(20) ++++ mg/dL [facility] Spec Grav, UA 1.015 1 - 1.03 [facility] Urobilinogen, UA 0.2 0.2 - 12 mg/dL [facility] Albumin [Mass/volume] in Ser um or Plasma by Bromocresol green (BCG) dye binding methoOrdered By: Dilan Nguyễn on 04-12-2024 Albumin BCG dye [Mass/Vol] Albumin [Mass/volume] in Serum or Plasma by Bromocresol green (BCG) dye binding metho 3.5-5.7 [facility] Calcium [Mass/volume] in Ser um or PlasmaOrdered By: Dilan Nguyễn on 04-12-2024 Calcium [Mass/Vol] Calcium [Mass/volume ] in Serum or Plasma 8.6-10.3 [facility] Carbon dioxide, total [Moles /volume] in Serum or PlasmaOrdered By: Dilan Nguyễn on 04-12-2024 CO2 [Moles/Vol] Carbon dioxide, tota l [Moles/volume] in Serum or Plasma 21.0-31.0 [facility] Chloride [Moles/volume] in S hayder or PlasmaOrdered By: Dilan Nguyễn on 04-12-2024 Chloride [Moles/Vol] Chloride [Moles/vol ume] in Serum or Plasma 98-107 [facility] Creatinine [Mass/volume] in Serum or PlasmaOrdered By: Dilan Nguyễn on 04-12-2024 Creatinine [Mass/Vol] Creatinine [Mass/volume] in Serum or Plasma High 0.60-1.20 [facility] Erythrocyte distribution wid th Auto (RBC) [Ratio]Ordered By: Dilan Nguyễn on 04-12-2024 Erythrocyte distribution width (RBC) [Ratio] Erythrocyte distribution width [Ratio] by Automated count 11.9-15.3 [facility] Glucose [Mass/volume] in Ser um or PlasmaOrdered By: Dilan Nguyễn on 04-12-2024 Glucose [Mass/Vol] Glucose [Mass/volume ] in Serum or Plasma High 70-100 [facility] Comment on above: ADA recommended refe rence rangeRandom Glucose Reference Range is dependent on time and content of last meal. Glucose of more than 200 mg/dL in a nonstressed, ambulatory subject supports the diagnosis of Diabetes Mellitus. Hematocrit Auto (Bld) [Volum e fraction]Ordered By: Dilan Nguyễn on 04-12-2024 Hematocrit (Bld) [Volume fraction] Hematocrit [Volume Fraction] of Blood by Automated count 34.0-46.4 [facility] Hemoglobin [Mass/volume] in BloodOrdered By: Dilan Nguyễn on 04-12-2024 Hemoglobin (Bld) [Mass/Vol] Hemoglobin [Mass/volume] in Blood 11.8-15.4 [facility] Hemogram CBC Without Diffon 12-09-2024 Erythrocyte distribution width (RBC) [Ratio] 15.1 % Normal 11.9-15.3 [facility] Comment on above: Performed By: #### R ENAL, MG, [id number], CBCNO, URIC, PTH #### [address] Hematocrit (Bld) [Volume fraction] 45.9 % Normal 34.0-46.4 [facility] Comment on above: Performed By: #### R ENAL, MG, [id number], CBCNO, URIC, PTH #### [address] Hemoglobin (Bld) [Mass/Vol] 15.3 g/dL Normal 11.8-15.4 [facility] Comment on above: Performed By: #### R ENAL, MG, [id number], CBCNO, URIC, PTH #### [address] MCH (RBC) [Entitic mass] 29.1 pg Normal 24.7-34.3 [facility] Comment on above: Performed By: #### R ENAL, MG, [id number], CBCNO, URIC, PTH #### [address] MCV (RBC) [Entitic vol] 86.9 fL Normal 80-100 [facility] Comment on above: Performed By: #### R ENAL, MG, [id number], CBCNO, URIC, PTH #### [address] Mean Corpuscular HGB Conc 33.4 g/dL Normal 32.0-35.0 [facility] Comment on above: Performed By: #### R ENAL, MG, [id number], CBCNO, URIC, PTH #### [address] Platelet mean volume (Bld) [Entitic vol] 8.6 fL Normal 6.3-10.7 [facility] Comment on above: Result Comment: PERF ORMED BY: [place] [id number] PATHOLOGIST REGIONAL VICE PRESIDENT [employer] OLIVERIO ARTHUR M.D. Performed By: #### R ENAL, MG, [id number], CBCNO, URIC, PTH #### [facility] [address] Platelets (Bld) [#/Vol] 336 10*3/uL Normal 150-450 [facility] Comment on above: Performed By: #### R ENAL, MG, [id number], CBCNO, URIC, PTH #### [facility] [address] RBC (Bld) [#/Vol] 5.28 10*6/uL High 3.60-5.00 [facility] Comment on above: Performed By: #### R ENAL, MG, [id number], CBCNO, URIC, PTH #### [address] WBC (Bld) [#/Vol] 7.6 10*3/uL Normal 3.8-11.6 [facility] Comment on above: Performed By: #### R ENAL, MG, [id number], CBCNO, URIC, PTH #### [facility] [address] Laboratory - Chemistry and C hemistry - challengeon 04-12-2024 Albumin [Mass/Vol] 3.8 g/dL [facility] Creatinine (U) [Mass/Vol] 1.58 mg/dL [facility] GFR/1.73 sq M.predicted among non-blacks MDRD (S/P/Bld) [Vol rate/Area] 34.5 mL/min/{1.73_m2} [facility] Leukocytes [#/volume] correc cristine for nucleated erythrocytes in Blood by Automated counOrdered By: Dilan Nguyễn on 04-12-2024 WBC corrected for nucl RBC Auto (Bld) [#/Vol] Leukocytes [#/volume] corrected for nucleated erythrocytes in Blood by Automated coun 3.8-11.6 [facility] MCH Auto (RBC) [Entitic mass ]Ordered By: Dilan Nguyễn on 04-12-2024 MCH (RBC) [Entitic mass] MCH [Entitic mass] by Automated count 24.7-34.3 [facility] MCHC Auto (RBC) [Mass/Vol]Or dered By: Dilan Nguyễn on 04-12-2024 MCHC (RBC) [Mass/Vol] MCHC [Mass/volume] by Automated count 32.0-35.0 [facility] MCV Auto (RBC) [Entitic vol] Ordered By: Dilan Nguyễn on 04-12-2024 MCV (RBC) [Entitic vol] MCV [Entitic volume] by Automated count 80-100 [facility] Magnesiumon 04-12-2024 Magnesium [Mass/Vol] 2.2 mg/dL Normal 1.9-2.7 [facility] Comment on above: Performed By: #### R ENAL, MG, [id number], CBCNO, URIC, PTH #### [facility] [address] Magnesium [Mass/volume] in S hayder or PlasmaOrdered By: Dilan Nguyễn on 04-12-2024 Magnesium [Mass/Vol] Magnesium [Mass/vol ume] in Serum or Plasma 1.9-2.7 [facility] No Panel Informationon 04-12 [facility] No Panel InformationOrdered By: Dilan Nguyễn on 04-12-2024 Estimated GFR (CKD-EPI) 34.572 mL/Min [facility] Creatinine Clearance (Chem N/A [facility] Parathyrin.intact [Mass/volu me] in Serum or PlasmaOrdered By: Dilan Ngyuễn on 04-12-2024 Parathyrin.intact [Mass/Vol] Parathyrin.intact [Mass/volume] in Serum or Plasma [facility] Parathyroid Hormone Intacton 04-12-2024 Parathyroid Hormone Intact 15.0 pg/mL Normal [facility] Comment on above: Result Comment: PERF ORMED BY: [facility] [address] [place] [address] PATHOLOGIST [employer] OLIVERIO ARTHUR M.D. Performed By: #### R ENAL, MG, [id number], CBCNO, URIC, PTH #### [facility] [address] Phosphate [Mass/volume] in S hayder or PlasmaOrdered By: Dilan Nguyễn on 04-12-2024 Phosphate [Mass/Vol] Phosphate [Mass/vol ume] in Serum or Plasma 2.5-4.5 [facility] Platelet mean volume Auto (B ld) [Entitic vol]Ordered By: Dilan Nguyễn on 04-12-2024 Platelet mean volume (Bld) [Entitic vol] Platelet mean volume [Entitic volume] in Blood by Automated count 6.3-10.7 [facility] Platelets Auto (Bld) [#/Vol] Ordered By: Dilan Nguyễn on 04-12-2024 Platelets (Bld) [#/Vol] Platelets [#/volume] in Blood by Automated count 150-450 [facility] Potassium [Moles/volume] in Serum or PlasmaOrdered By: Dilan Nguyễn on 04-12-2024 Potassium [Moles/Vol] Potassium [Moles/volume] in Serum or Plasma 3.5-5.1 [facility] RBC Auto (Bld) [#/Vol]Ordere d By: Dilan Nguyễn on 04-12-2024 RBC (Bld) [#/Vol] Erythrocytes [#/volu me] in Blood by Automated count High 3.60-5.00 [facility] Renal Function Panelon 04-12 Albumin [Mass/Vol] 3.8 g/dL Normal 3.5-5.7 [facility] Comment on above: Performed By: #### R ENAL, MG, [id number], CBCNO, URIC, PTH #### [facility] [address] Anion gap [Moles/Vol] 13.0 mmol/L Normal 6.0-15.0 [facility] Comment on above: Performed By: #### R ENAL, MG, [id number], CBCNO, URIC, PTH #### [facility] [address] Calcium [Mass/Vol] 9.5 mg/dL Normal 8.6-10.3 [facility] Comment on above: Performed By: #### R ENAL, MG, [id number], CBCNO, URIC, PTH #### [facility] [address] Chloride [Moles/Vol] 103 mmol/L Normal 98-107 [facility] Comment on above: Performed By: #### R ENAL, MG, [id number], CBCNO, URIC, PTH #### [address] CO2 [Moles/Vol] 24.2 mmol/L Normal 21.0-31.0 [facility] Comment on above: Performed By: #### R ENAL, MG, [id number], CBCNO, URIC, PTH #### [address] Creatinine [Mass/Vol] 1.58 mg/dL High 0.60-1.20 [facility] Comment on above: Performed By: #### R ENAL, MG, [id number], CBCNO, URIC, PTH #### [address] Estimated GFR 34.572 mL/Min Normal [facility] Comment on above: Performed By: #### R ENAL, MG, [id number], CBCNO, URIC, PTH #### [address] Glucose [Mass/Vol] 232 mg/dL High 70-100 [facility] Comment on above: Result Comment: [place] Glucose Reference Range is dependent on time and content of last meal. Glucose of more than 200 mg/dL in a nonstressed, ambulatory subject supports the diagnosis of Diabetes Mellitus. ADA recommended reference range Performed By: #### R ENAL, MG, [id number], CBCNO, URIC, PTH #### [address] Phosphate [Mass/Vol] 4.4 mg/dL Normal 2.5-4.5 [facility] Comment on above: Performed By: #### R ENAL, MG, [id number], CBCNO, URIC, PTH #### [facility] [address] [place] [address] Potassium [Moles/Vol] 4.2 mmol/L Normal 3.5-5.1 [facility] Comment on above: Performed By: #### R ENAL, MG, [id number], CBCNO, URIC, PTH #### [address] Sodium [Moles/Vol] 136 mmol/L Normal 136-145 [facility] Comment on above: Performed By: #### R ENAL, MG, [id number], CBCNO, URIC, PTH #### [address] Urea nitrogen [Mass/Vol] 33 mg/dL High 7-25 [facility] Comment on above: Performed By: #### R ENAL, MG, [id number], CBCNO, URIC, PTH #### [address] Serum or plasma anion gap de terminationOrdered By: Dilan Sergio on 04-12-2024 Anion gap [Moles/Vol] Serum or plasma an ion gap determination 6.0-15.0 [facility] Sodium [Moles/volume] in Ser um or PlasmaOrdered By: Dilan Sergio on 04-12-2024 Sodium [Moles/Vol] Sodium [Moles/volume ] in Serum or Plasma 136-145 [facility] Urate [Mass/volume] in Serum or PlasmaOrdered By: Dilan Sergio on 04-12-2024 Urate [Mass/Vol] Urate [Mass/volume] in Serum or Plasma 2.3-6.6 [facility] Urea nitrogen [Mass/volume] in Serum or PlasmaOrdered By: Dilan Sergio on 04-12-2024 Urea nitrogen [Mass/Vol] Urea nitrogen [Mass/volume] in Serum or Plasma High 7-25 [facility] Uric Acidon 04-12-2024 Urate [Mass/Vol] 5.2 mg/dL Normal 2.3-6.6 [facility] Comment on above: Performed By: #### R ENAL, MG, [id number], CBCNO, URIC, PTH #### [facility] [address] [place] [id number] [place] Vitamin D 25 Hydroxy Totalon 04-12-2024 Vitamin D 25 Hydroxy Total 47.3 ng/mL Normal 30-100 [facility] Comment on above: Result Comment: YAZMIN MIN D STATUS 25(OH)VITAMIN D RANGE (ng/mL) Deficient <20 Insufficient 20 to <30 Sufficient 30 to 100 Reference: Mitzy Gutiérrez, Brandt CONNER, et al. Evaluation,treatment, and prevention of vitamin D deficiency; an Endocrine Society clinical practice guideline. JCEM. 2010; 96(7):1911-30. PERFORMED BY: [place] [address] PATHOLOGIST [employer]ICE PRESIDENT [employer] OLIVERIO ARTHUR M.D. Performed By: #### R ENAL, MG, [id number], CBCNO, URIC, PTH #### [facility] [address] [place] [address] [facility] Vitamin D+Metabolites [Mass/ volume] in Serum or PlasmaOrdered By: Dlian Nguyễn on 04-12-2024 Vitamin D+Metabolites [Mass/Vol] Vitamin D+Metabolites [Mass/volume] in Serum or Plasma 30-100 [facility] Comment on above: VITAMIN D STATUS 25( [place])VITAMIN D RANGE (ng/mL) Deficient <20 Insufficient 20 to <30Sufficient 30 to 100Reference: Mitzy Gutiérrez, Brandt CONNER, et al. Evaluation,treatment, and prevention of vitamin D deficiency; an Endocrine Society clinical practice guideline. JCEM. 2010; 96(7):1911-30. POCT Hemoglobin A1con 2023 HbA1c (Bld) [Mass fraction] 7.6 % Abnormal 4 - 7 % [facility] Interpretation and review of laboratory results Abnormal [facility] POCT Hemoglobin A1con 2023 ADA Target < 8 Yes [facility] HbA1c (Bld) [Mass fraction] 7.5 g/dL Abnormal 4 - 7 g/dL [facility] Interpretation and review of laboratory results Abnormal [facility] Albumin [Mass/volume] in Ser um or Plasma by Bromocresol green (BCG) dye binding methoOrdered By: Dilan Nguyễn on 11-10-2023 Albumin BCG dye [Mass/Vol] 4.0 g/dL 3.5-5.7 [facility] Calcium [Mass/volume] in Ser um or PlasmaOrdered By: Dilan Nguyễn on 11-10-2023 Calcium [Mass/Vol] 9.5 mg/dL Normal 8.6-10.3 [facility] Comment on above: Performed By: #### C BCNO, URIC, [id number], RENAL, MG #### [address] Carbon dioxide, total [Moles /volume] in Serum or PlasmaOrdered By: Dilan Nguyễn on 11-10-2023 CO2 [Moles/Vol] 27.1 mmol/L Normal 21.0-31.0 [facility] Comment on above: Performed By: #### C BCNO, URIC, [id number], RENAL, MG #### [facility] [address] Chloride [Moles/volume] in S hayder or PlasmaOrdered By: Dilan Nguyễn on 11-10-2023 Chloride [Moles/Vol] 102 mmol/L Normal 98-107 [facility] Comment on above: Performed By: #### C BCNO, URIC, [id number], RENAL, MG #### [facility] [address] Creatinine [Mass/volume] in Serum or PlasmaOrdered By: Dilan Nguyễn on 11-10-2023 Creatinine [Mass/Vol] 2.10 mg/dL High 0.60-1.20 [facility] Comment on above: Performed By: #### C BCNO, URIC, [id number], RENAL, MG #### [facility] [address] [place] [address] [place] Erythrocyte distribution wid th [Ratio] by Automated countOrdered By: Dilan Nguyễn on 11-10-2023 Erythrocyte distribution width (RBC) [Ratio] 14.8 % Normal 11.9-15.3 [facility] Comment on above: Performed By: #### C BCNO, URIC, [id number], RENAL, MG #### [facility] [address] Erythrocytes [#/volume] in B lood by Automated countOrdered By: Dilan Nguyễn on 11-10-2023 RBC (Bld) [#/Vol] 5.05 10*6/uL High 3.60-5.00 [facility] Comment on above: Performed By: #### C BCNO, URIC, [id number], RENAL, MG #### [facility] [address] [place] [address] [place] Glucose [Mass/volume] in Ser um or PlasmaOrdered By: Dilan Nguyễn on 11-10-2023 Glucose [Mass/Vol] 239 mg/dL High 70-100 [facility] Comment on above: ADA recommended refe rence rangeRandom Glucose Reference Range is dependent on time and content of last meal. Glucose of more than 200 mg/dL in a nonstressed, ambulatory subject supports the diagnosis of Diabetes Mellitus. Result Comment: [place] om Glucose Reference Range is dependent on time and content of last meal. Glucose of more than 200 mg/dL in a nonstressed, ambulatory subject supports the diagnosis of Diabetes Mellitus. ADA recommended reference range Performed By: #### C BCNO, URIC, [id number], RENAL, MG #### [facility] [address] [place] [id number] [place] Hematocrit [Volume Fraction] of Blood by Automated countOrdered By: Dilan Nguyễn on 11-10-2023 Hematocrit (Bld) [Volume fraction] 45.1 % Normal 34.0-46.4 [facility] Comment on above: Performed By: #### C BCNO, URIC, [id number], RENAL, MG #### [facility] [address] [place] [id number] [place] Hemoglobin [Mass/volume] in BloodOrdered By: Dilan Nguyễn on 11-10-2023 Hemoglobin (Bld) [Mass/Vol] 15.0 g/dL Normal 11.8-15.4 [facility] Comment on above: Performed By: #### C BCNO, URIC, [id number], RENAL, MG #### [facility] [address] Hemogram CBC Without Diffon 11-10-2023 Mean Corpuscular HGB Conc 33.2 g/dL Normal 32.0-35.0 [facility] Comment on above: Performed By: #### C BCNO, URIC, [id number], RENAL, MG #### [facility] [address] WBC (Bld) [#/Vol] 9.1 10*3/uL Normal 3.8-11.6 [facility] Comment on above: Performed By: #### C BCNO, URIC, [id number], RENAL, MG #### [facility] [address] Leukocytes [#/volume] correc cristine for nucleated erythrocytes in Blood by Automated counOrdered By: Dilan Nguyễn on 11-10-2023 WBC corrected for nucl RBC Auto (Bld) [#/Vol] 9.1 10*3/uL 3.8-11.6 [facility] MCH [Entitic mass] by Automa cristine countOrdered By: Dilan Nguyễn on 11-10-2023 MCH (RBC) [Entitic mass] 29.7 pg Normal 24.7-34.3 [facility] Comment on above: Performed By: #### C BCNO, URIC, [id number], RENAL, MG #### [address] MCHC Auto (RBC) [Mass/Vol]Or dered By: Dilan Nguyễn on 11-10-2023 MCHC (RBC) [Mass/Vol] 33.2 g/dL 32.0-35.0 [facility] MCV [Entitic volume] by Auto mated countOrdered By: Dilan Nguyễn on 11-10-2023 MCV (RBC) [Entitic vol] 89.4 fL Normal 80-100 [facility] Comment on above: Performed By: #### C BCNO, URIC, [id number], RENAL, MG #### [address] Magnesium [Mass/volume] in S hayder or PlasmaOrdered By: Dilan Nguyễn on 11-10-2023 Magnesium [Mass/Vol] 2.2 mg/dL Normal 1.9-2.7 [facility] Comment on above: Performed By: #### C BCNO, URIC, [id number], RENAL, MG #### [address] No Panel InformationOrdered By: Dilan Nguyễn on 11-10-2023 Estimated GFR (CKD-EPI) 24.573 mL/Min [facility] Creatinine Clearance (Chem N/A [facility] Phosphate [Mass/volume] in S hayder or PlasmaOrdered By: Dilan Nguyễn on 11-10-2023 Phosphate [Mass/Vol] 4.9 mg/dL High 2.5-4.5 [facility] Comment on above: Performed By: #### C BCNO, URIC, [id number], RENAL, MG #### [address] Platelet mean volume [Entiti c volume] in Blood by Automated countOrdered By: Dilan Nguyễn on 11-10-2023 Platelet mean volume (Bld) [Entitic vol] 8.5 fL Normal 6.3-10.7 [facility] Comment on above: Result Comment: PERF ORMED BY: [place] [address] PATHOLOGIST [employer] PRESIDENT [employer] JACQUELINE ZAVALA M.D. Performed By: #### C BCNO, URIC, [id number], RENAL, MG #### [address] Platelets [#/volume] in Bloo d by Automated countOrdered By: Dilan Nguyễn on 11-10-2023 Platelets (Bld) [#/Vol] 350 10*3/uL Normal 150-450 [facility] Comment on above: Performed By: #### C BCNO, URIC, [id number], RENAL, MG #### [facility] [address] Potassium [Moles/volume] in Serum or PlasmaOrdered By: Dilan Nguyễn on 11-10-2023 Potassium [Moles/Vol] 4.0 mmol/L Normal 3.5-5.1 [facility] Comment on above: Performed By: #### C BCNO, URIC, [id number], RENAL, MG #### [facility] [address] Renal Function Panelon 11-09 Albumin [Mass/Vol] 4.0 g/dL Normal 3.5-5.7 [facility] Comment on above: Performed By: #### C BCNO, URIC, [id number], RENAL, MG #### [address] GFR/1.73 sq M.predicted MDRD (S/P/Bld) [Vol rate/Area] 24.573 mL/min/{1.73_m2} Normal [facility] Comment on above: Performed By: #### C BCNO, URIC, [id number], RENAL, MG #### [address] Serum or plasma anion gap de terminationOrdered By: Dilna Nguyễn on 11-10-2023 Anion gap [Moles/Vol] 11.9 mmol/L Normal 6.0-15.0 [facility] Comment on above: Performed By: #### C BCNO, URIC, [id number], RENAL, MG #### [facility] [address] Sodium [Moles/volume] in Ser um or PlasmaOrdered By: Dilan Sergio on 11-10-2023 Sodium [Moles/Vol] 137 mmol/L Normal 136-145 [facility] Comment on above: Performed By: #### C BCNO, URIC, [id number], RENAL, MG #### [facility] [address] Urate [Mass/volume] in Serum or PlasmaOrdered By: Dilan Sergio on 11-10-2023 Urate [Mass/Vol] 4.9 mg/dL Normal 2.3-6.6 [facility] Comment on above: Performed By: #### R ENAL, MG, [id number], CBCNO, URIC, PTH #### [facility] [address] Urea nitrogen [Mass/volume] in Serum or PlasmaOrdered By: Dilan Sergio on 11-10-2023 Urea nitrogen [Mass/Vol] 46 mg/dL High 7-25 [facility] Comment on above: Performed By: #### C BCNO, URIC, [id number], RENAL, MG #### [facility] [address] [place] [address] Vitamin D 25 Hydroxy Totalon 11-10-2023 Vitamin D 25 Hydroxy Total 50.4 ng/mL Normal 30-100 [facility] Comment on above: Result Comment: YAZMIN MIN D STATUS 25(OH)VITAMIN D RANGE (ng/mL) Deficient <20 Insufficient 20 to <30 Sufficient 30 to 100 Reference: Brittni MF,Mitzy NC, Brandt CONNER, et al. Evaluation,treatment, and prevention of vitamin D deficiency; an Endocrine Society clinical practice guideline. JCEM. 2010; 96(7):1911-30. PERFORMED BY: [place] [address] PATHOLOGIST [employer] PRES[employer] JACQUELINE ZAVALA M.D. Performed By: #### R ENAL, MG, [id number], CBCNO, URIC, PTH #### [facility] [address] [place], [place] [id number] [facility] Vitamin D+Metabolites [Mass/ volume] in Serum or PlasmaOrdered By: Dilan Sergio on 11-10-2023 Vitamin D+Metabolites [Mass/Vol] 50.4 ng/mL 30-100 [facility] Comment on above: VITAMIN D STATUS 25( [place])VITAMIN D RANGE (ng/mL) Deficient <20 Insufficient 20 to <30Sufficient 30 to 100Reference: Brittni MF,Mitzy [place], Brandt CONNER, et al. Evaluation,treatment, and prevention of vitamin D deficiency; an Endocrine Society clinical practice guideline. JCEM. 2010; 96(7):1911-30. POCT Hemoglobin A1con 2023 ADA Target < 8 Yes [facility] HbA1c (Bld) [Mass fraction] 7.7 g/dL Abnormal 4 - 7 g/dL [facility] Interpretation and review of laboratory results Abnormal [facility] Microalbumin/Creatinine rati o panel (U)on 08-05-2023 Albumin DL <= 20 mg/L (U) [Mass/Vol] 4 mg/dL [facility] Albumin/Creatinine DL <= 1.0 mg/L (U) [Ratio] 1.2 [facility] Creatinine (U) [Mass/Vol] 65 mg/dL [facility] Albumin [Mass/volume] in Ser um or Plasma by Bromocresol green (BCG) dye binding methoOrdered By: Dilan Nguyễn on 07-21-2023 Albumin BCG dye [Mass/Vol] 4.3 g/dL 3.5-5.7 [facility] Calcium [Mass/volume] in Ser um or PlasmaOrdered By: Dilan Nguyễn on 07-21-2023 Calcium [Mass/Vol] 9.8 mg/dL 8.6-10.3 [facility] Carbon dioxide, total [Moles /volume] in Serum or PlasmaOrdered By: Dilan Sergio on 07-21-2023 CO2 [Moles/Vol] 29.2 mmol/L 21.0-31.0 [facility] Chloride [Moles/volume] in S hayder or PlasmaOrdered By: Dilan Sergio on 07-21-2023 Chloride [Moles/Vol] 103 mmol/L 98-107 [facility] Creatinine [Mass/volume] in Serum or PlasmaOrdered By: Dilan Sergio on 07-21-2023 Creatinine [Mass/Vol] 1.86 mg/dL 0.60-1.20 [facility] Glucose [Mass/volume] in Ser um or PlasmaOrdered By: Dilan Nguyễn on 07-21-2023 Glucose [Mass/Vol] 208 mg/dL 70-100 [facility] Comment on above: ADA recommended refe rence rangeRandom Glucose Reference Range is dependent on time and content of last meal. Glucose of more than 200 mg/dL in a nonstressed, ambulatory subject supports the diagnosis of Diabetes Mellitus. No Panel InformationOrdered By: Dilan Nguyễn on 07-21-2023 Estimated GFR (CKD-EPI) 28.425 mL/Min [facility] Creatinine Clearance (Chem N/A [facility] Phosphate [Mass/volume] in S hayder or PlasmaOrdered By: Dilan Nguyễn on 07-21-2023 Phosphate [Mass/Vol] 4.9 mg/dL 2.5-4.5 [facility] Potassium [Moles/volume] in Serum or PlasmaOrdered By: Dilan gNuyễn on 07-21-2023 Potassium [Moles/Vol] 4.5 mmol/L 3.5-5.1 [facility] Serum or plasma anion gap de terminationOrdered By: Dilan Nguyễn on 07-21-2023 Anion gap [Moles/Vol] 11.3 mmol/L 6.0-15.0 [facility] Sodium [Moles/volume] in Ser um or PlasmaOrdered By: Dilan Nguyễn on 07-21-2023 Sodium [Moles/Vol] 139 mmol/L 136-145 [facility] Urea nitrogen [Mass/volume] in Serum or PlasmaOrdered By: Dilan Nguyễn on 07-21-2023 Urea nitrogen [Mass/Vol] 34 mg/dL 7-25 [facility] Albumin [Mass/volume] in Ser um or Plasma by Bromocresol green (BCG) dye binding methoOrdered By: Dilan Nguyễn on 07-18-2023 Albumin BCG dye [Mass/Vol] 4.1 g/dL 3.5-5.7 [facility] Automated erythrocytes count in urine sediment (number/area)Ordered By: Dilan Nguyễn on 07-18-2023 RBC Auto (Urine sed) [#/Area] 10-19 [HPF] 0-4 [facility] Automated leukocytes count i n urine sediment (number/area)Ordered By: Dilan Nguyễn on 07-18-2023 WBC Auto (Urine sed) [#/Area] 10-19 [HPF] 0-4 [facility] Bilirubin Test strip Ql (U)O rdered By: Dilan Nguyễn on 07-18-2023 Bilirubin Ql (U) Negative Negative [facility] Calcium [Mass/volume] in Ser um or PlasmaOrdered By: Dilan Nguyễn on 07-18-2023 Calcium [Mass/Vol] 9.2 mg/dL 8.6-10.3 [facility] Carbon dioxide, total [Moles /volume] in Serum or PlasmaOrdered By: Dilan Nguyễn on 07-18-2023 CO2 [Moles/Vol] 27.0 mmol/L 21.0-31.0 [facility] Chloride [Moles/volume] in S hayder or PlasmaOrdered By: Dilan Nguyễn on 07-18-2023 Chloride [Moles/Vol] 101 mmol/L 98-107 [facility] Color Auto (U)Ordered By: Ab halie Nguyễn on 07-18-2023 Color (U) Yellow Yellow [facility] Creatinine [Mass/volume] in Serum or PlasmaOrdered By: Dilan Nguyễn on 07-18-2023 Creatinine [Mass/Vol] 2.96 mg/dL 0.60-1.20 [facility] Creatinine [Mass/volume] in UrineOrdered By: Dilan Nguyễn on 07-18-2023 Creatinine (U) [Mass/Vol] 65.0 mg/dL 11.0-20.0 [facility] Erythrocyte distribution wid th Auto (RBC) [Ratio]Ordered By: Dilan Nguyễn on 07-18-2023 Erythrocyte distribution width (RBC) [Ratio] 15.2 % 11.9-15.3 [facility] Glucose [Mass/volume] in Ser um or PlasmaOrdered By: Dilan Nguyễn on 07-18-2023 Glucose [Mass/Vol] 101 mg/dL 70-100 [facility] Comment on above: ADA recommended refe rence rangeRandom Glucose Reference Range is dependent on time and content of last meal. Glucose of more than 200 mg/dL in a nonstressed, ambulatory subject supports the diagnosis of Diabetes Mellitus. Hematocrit Auto (Bld) [Volum e fraction]Ordered By: Dilan Nguyễn on 07-18-2023 Hematocrit (Bld) [Volume fraction] 46.5 % 34.0-46.4 [facility] Hemoglobin [Mass/volume] in BloodOrdered By: Dilan Nguyễn on 07-18-2023 Hemoglobin (Bld) [Mass/Vol] 15.1 g/dL 11.8-15.4 [facility] Ketones Auto test strip (U) [Mass/Vol]Ordered By: Dilan Nguyễn on 07-18-2023 Ketones (U) [Mass/Vol] Negative Negative [facility] - UrinalysisOrder ed By: Dilan Nguyễn on 07-18-2023 Hyaline casts LM Ql (Urine sed) 0-8 [LPF] 0-8 [facility] Leukocytes [#/volume] correc cristine for nucleated erythrocytes in Blood by Automated counOrdered By: Dilan Nguyễn on 07-18-2023 WBC corrected for nucl RBC Auto (Bld) [#/Vol] 9.9 10*3/uL 3.8-11.6 [facility] MCH Auto (RBC) [Entitic mass ]Ordered By: Dilan Nguyễn on 07-18-2023 MCH (RBC) [Entitic mass] 28.8 pg 24.7-34.3 [facility] MCHC Auto (RBC) [Mass/Vol]Or dered By: Dilan Nguyễn on 07-18-2023 MCHC (RBC) [Mass/Vol] 32.5 g/dL 32.0-35.0 [facility] MCV Auto (RBC) [Entitic vol] Ordered By: Dilan Nguyễn on 07-18-2023 MCV (RBC) [Entitic vol] 88.7 fL 80-100 [facility] Magnesium [Mass/volume] in S hayder or PlasmaOrdered By: Dilan Nguyễn on 07-18-2023 Magnesium [Mass/Vol] 2.3 mg/dL 1.9-2.7 [facility] Nitrite Test strip Ql (U)Ord ered By: Dilan Nguyễn on 07-18-2023 Nitrite Ql (U) Negative Negative [facility] No Panel InformationOrdered By: Dilan Nguyễn on 07-18-2023 Estimated GFR (CKD-EPI) 16.276 mL/Min [facility] Creatinine Clearance (Chem N/A [facility] Parathyrin.intact [Mass/volu me] in Serum or PlasmaOrdered By: Dilan Nguyễn on 07-18-2023 Parathyrin.intact [Mass/Vol] 47.1 pg/mL 12-88 [facility] Phosphate [Mass/volume] in S hayder or PlasmaOrdered By: Dilan Nguyễn on 07-18-2023 Phosphate [Mass/Vol] 5.2 mg/dL 2.5-4.5 [facility] Platelet mean volume Auto (B ld) [Entitic vol]Ordered By: Dilan Nguyễn on 07-18-2023 Platelet mean volume (Bld) [Entitic vol] 7.9 fL 6.3-10.7 [facility] Platelets Auto (Bld) [#/Vol] Ordered By: Dilan Nguyễn on 07-18-2023 Platelets (Bld) [#/Vol] 361 10*3/uL 150-450 [facility] Potassium [Moles/volume] in Serum or PlasmaOrdered By: Dilan Nguyễn on 07-18-2023 Potassium [Moles/Vol] 4.6 mmol/L 3.5-5.1 [facility] Protein Auto test strip (U) [Mass/Vol]Ordered By: Dilan Nguyễn on 07-18-2023 Protein (U) [Mass/Vol] Negative Negative [facility] Protein [Mass/volume] in Uri neOrdered By: Dilan Nguyễn on 07-18-2023 Protein (U) [Mass/Vol] mg/dL 0-9 [facility] RBC Auto (Bld) [#/Vol]Ordere d By: Dilan Nguyễn on 07-18-2023 RBC (Bld) [#/Vol] 5.25 10*6/uL 3.60-5.00 [facility] Serum or plasma anion gap de terminationOrdered By: Dilan Nguyễn on 07-18-2023 Anion gap [Moles/Vol] 12.6 mmol/L 6.0-15.0 [facility] Sodium [Moles/volume] in Ser um or PlasmaOrdered By: Dilan Nguyễn on 07-18-2023 Sodium [Moles/Vol] 136 mmol/L 136-145 [facility] Specific gravity Auto test s trip (U) [Rel density]Ordered By: Dilan Nguyễn on 07-18-2023 Specific gravity (U) [Rel density] 1.015 1.001-1.030 [facility] Squamous epithelial cells de tection in urine sediment by light microscopyOrdered By: Dilan Nguyễn on 07-18-2023 Epithelial cells.squamous LM Ql (Urine sed) 3-4 [HPF] 0-2 [facility] Urate [Mass/volume] in Serum or PlasmaOrdered By: Dilan Nguyễn on 07-18-2023 Urate [Mass/Vol] 5.4 mg/dL 2.3-6.6 [facility] Urea nitrogen [Mass/volume] in Serum or PlasmaOrdered By: Dilan Nguyễn on 07-18-2023 Urea nitrogen [Mass/Vol] 43 mg/dL 7-25 [facility] Urine bacteria detection by automated methodOrdered By: Dilan Nguyễn on 07-18-2023 Bacteria Auto Ql (U) None seen None Seen [facility] Urine clarity by refractomet ry automatedOrdered By: Dilan Nguyễn on 07-18-2023 Clarity Refractometry automated (U) Clear Clear [facility] Urine culture routineOrdered By: Dilan Nguyễn on 07-18-2023 Bacteria identified Cx Nom (U) 2 Days [facility] Urine glucose measurement by automated test strip (mass/volume)Ordered By: Dilan Nguyễn on 07-18-2023 Glucose Auto test strip (U) [Mass/Vol] 500 mg/dL Normal [facility] Urine hemoglobin detection b y automated test stripOrdered By: Dilan Nguyễn on 07-18-2023 Hemoglobin Auto test strip Ql (U) Trace Negative [facility] Urine leukocyte esterase det ection by automated test stripOrdered By: Dilan Nguyễn on 07-18-2023 Leukocyte esterase Auto test strip Ql (U) 3+ Negative [facility] Urine protein/creatinine rat ioOrdered By: Dilan Nguyễn on 07-18-2023 Protein/Creatinine (U) [Ratio] TNP [facility] Comment on above: Test not performed Urobilinogen Auto test strip (U) [Mass/Vol]Ordered By: Dilan Nguyễn on 07-18-2023 Urobilinogen (U) [Mass/Vol] Normal mg/dL Normal [facility] Vitamin D+Metabolites [Mass/ volume] in Serum or PlasmaOrdered By: Dilan Nguyễn on 07-18-2023 Vitamin D+Metabolites [Mass/Vol] 47.8 ng/mL 30-100 [facility] Comment on above: VITAMIN D STATUS 25( [place])VITAMIN D RANGE (ng/mL) Deficient <20 Insufficient 20 to <30Sufficient 30 to 100Reference: Brittni MF,Mitzy NC, Brandt CONNER, et al. Evaluation,treatment, and prevention of vitamin D deficiency; an Endocrine Society clinical practice guideline. JCEM. 2010; 96(7):1911-30. 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 Electronically Signed Out by GUS VIDAL M.D. Electronically Signed Out By GUS VIDAL MD/[facility] By the signature on this report, the individual or group listed as making the Final Interpretation/Diagnosi s certifies that they have reviewed this case. Diagnostic interpretation performed at Dermatopath Lab [address] [place] [address], [place] [id number] Microscopic Description: Microscopic examination reveals a specimen that extends into the subcutaneous fat. An area with horizontally oriented collagen and vertically oriented vessels is present. Clinical History: R/O clear margins [id number]. Excision. ([place]) Specimens Submitted As: A: SKIN, L UPPER BACK Gross Description: Received in formalin is a rosas ellipsoid piece of skin measuring [id number]. The specimen is inked and embedded in toto in three blocks. The tips are in block A1. ink/08/27/2022 [facility] [place] Dermatopathology Laboratory [address], [place] [facility] [address] Normal [facility] Comment on above: Performed By: #### D #### Dermatopathology Albumin [Mass/volume] in Ser um or Plasma by Bromocresol green (BCG) dye binding methoOrdered By: Dilan Nguyễn on 07-13-2022 Albumin BCG dye [Mass/Vol] 4.1 g/dL 3.5-5.7 [facility] Automated erythrocytes count in urine sediment (number/area)Ordered By: Dilan Nguyễn on 07-13-2022 RBC Auto (Urine sed) [#/Area] 0-1 [HPF] 0-4 [facility] Automated leukocytes count i n urine sediment (number/area)Ordered By: Dilan Nguyễn on 07-13-2022 WBC Auto (Urine sed) [#/Area] 10-19 [HPF] 0-4 [facility] Bilirubin Test strip Ql (U)O rdered By: Dilan Nguyễn on 07-13-2022 Bilirubin Ql (U) Negative Negative [facility] Calcium [Mass/volume] in Ser um or PlasmaOrdered By: Dilan Nguyễn on 07-13-2022 Calcium [Mass/Vol] 9.4 mg/dL 8.6-10.3 [facility] Carbon dioxide, total [Moles /volume] in Serum or PlasmaOrdered By: Dilan Nguyễn on 07-13-2022 CO2 [Moles/Vol] 24.7 mmol/L 21.0-31.0 [facility] Chloride [Moles/volume] in S hayder or PlasmaOrdered By: Dilan Nguyễn on 07-13-2022 Chloride [Moles/Vol] 109 mmol/L 98-107 [facility] Color Auto (U)Ordered By: Ab halie Nguyễn on 07-13-2022 Color (U) Yellow Yellow [facility] Creatinine [Mass/volume] in Serum or PlasmaOrdered By: Dilan Nguyễn on 07-13-2022 Creatinine [Mass/Vol] 1.63 mg/dL 0.60-1.20 [facility] Erythrocyte distribution wid th Auto (RBC) [Ratio]Ordered By: Dilan Nguyễn on 07-13-2022 Erythrocyte distribution width (RBC) [Ratio] 14.9 % 11.9-15.3 [facility] Glucose [Mass/volume] in Ser um or PlasmaOrdered By: Dilan Nguyễn on 07-13-2022 Glucose [Mass/Vol] 76 mg/dL 74-109 [facility] Comment on above: ADA recommended refe rence rangeRandom Glucose Reference Range is dependent on time and content of last meal. Glucose of more than 200 mg/dL in a nonstressed, ambulatory subject supports the diagnosis of Diabetes Mellitus. Hematocrit Auto (Bld) [Volum e fraction]Ordered By: Dilan Nguyễn on 07-13-2022 Hematocrit (Bld) [Volume fraction] 42.1 % 34.0-46.4 [facility] Hemoglobin [Mass/volume] in BloodOrdered By: Dilan Nguyễn on 07-13-2022 Hemoglobin (Bld) [Mass/Vol] 13.9 g/dL 11.8-15.4 [facility] Ketones Auto test strip (U) [Mass/Vol]Ordered By: Dilan Nguyễn on 07-13-2022 Ketones (U) [Mass/Vol] Negative Negative [facility] Laboratory - Chemistry and C hemistry - challengeOrdered By: Dilan Nguyễn on 07-13-2022 GFR/1.73 sq M.predicted MDRD (S/P/Bld) [Vol rate/Area] 33.511 mL/min/{1.73_m2} [facility] Laboratory - UrinalysisOrder ed By: Dilan Nguyễn on 07-13-2022 Hyaline casts LM Ql (Urine sed) None seen [LPF] 0-8 [facility] Leukocytes [#/volume] correc cristine for nucleated erythrocytes in Blood by Automated counOrdered By: Dilan Nguyễn on 07-13-2022 WBC corrected for nucl RBC Auto (Bld) [#/Vol] 10.9 10*3/uL 3.8-11.6 [facility] MCH Auto (RBC) [Entitic mass ]Ordered By: Dilan Nguyễn on 07-13-2022 MCH (RBC) [Entitic mass] 29.7 pg 24.7-34.3 [facility] MCHC Auto (RBC) [Mass/Vol]Or dered By: Dilan Nguyễn on 07-13-2022 MCHC (RBC) [Mass/Vol] 33.1 g/dL 32.0-35.0 [facility] MCV Auto (RBC) [Entitic vol] Ordered By: Dilan Nguyễn on 07-13-2022 MCV (RBC) [Entitic vol] 89.8 fL 80-100 [facility] Magnesium [Mass/volume] in S hayder or PlasmaOrdered By: Dilan Nguyễn on 07-13-2022 Magnesium [Mass/Vol] 2.1 mg/dL 1.9-2.7 [facility] Nitrite Test strip Ql (U)Ord ered By: Dilan Nguyễn on 07-13-2022 Nitrite Ql (U) Negative Negative [facility] No Panel InformationOrdered By: Dilan Nguyễn on 07-13-2022 Pharmacy Creatinine Clearance (Chem N/A [facility] Parathyrin.intact [Mass/volu me] in Serum or PlasmaOrdered By: Dilan Nguyễn on 07-13-2022 Parathyrin.intact [Mass/Vol] 38.3 pg/mL 12-88 [facility] Phosphate [Mass/volume] in S hayder or PlasmaOrdered By: Dilan Nguyễn on 07-13-2022 Phosphate [Mass/Vol] 4.1 mg/dL 3.7-7.2 [facility] Platelet mean volume Auto (B ld) [Entitic vol]Ordered By: Dilan Nguyễn on 07-13-2022 Platelet mean volume (Bld) [Entitic vol] 9.0 fL 6.3-10.7 [facility] Platelets Auto (Bld) [#/Vol] Ordered By: Dilan Nguyễn on 07-13-2022 Platelets (Bld) [#/Vol] 363 10*3/uL 150-450 [facility] Potassium [Moles/volume] in Serum or PlasmaOrdered By: Dilan Nguyễn on 07-13-2022 Potassium [Moles/Vol] 4.2 mmol/L 3.5-5.1 [facility] Protein Auto test strip (U) [Mass/Vol]Ordered By: Dilan Nguyễn on 07-13-2022 Protein (U) [Mass/Vol] Negative Negative [facility] RBC Auto (Bld) [#/Vol]Ordere d By: Dilan Nguyễn on 07-13-2022 RBC (Bld) [#/Vol] 4.69 10*6/uL 3.60-5.00 [facility] Serum or plasma anion gap de terminationOrdered By: Dilan Nguyễn on 07-13-2022 Anion gap [Moles/Vol] 11.5 mmol/L 6.0-15.0 [facility] Sodium [Moles/volume] in Ser um or PlasmaOrdered By: Dilan Nguyễn on 07-13-2022 Sodium [Moles/Vol] 141 mmol/L 136-145 [facility] Specific gravity Auto test s trip (U) [Rel density]Ordered By: Dilan Nguyễn on 07-13-2022 Specific gravity (U) [Rel density] 1.019 1.001-1.030 [facility] Squamous epithelial cells de tection in urine sediment by light microscopyOrdered By: Dilan Nguyễn on 07-13-2022 Epithelial cells.squamous LM Ql (Urine sed) 3-4 [HPF] 0-2 [facility] Urate [Mass/volume] in Serum or PlasmaOrdered By: Dilan Nguyễn on 07-13-2022 Urate [Mass/Vol] 5.3 mg/dL 2.3-6.6 [facility] Urea nitrogen [Mass/volume] in Serum or PlasmaOrdered By: Dilan Nguyễn on 07-13-2022 Urea nitrogen [Mass/Vol] 34 mg/dL 7-25 [facility] Urine bacteria detection by automated methodOrdered By: Dilan Nguyễn on 07-13-2022 Bacteria Auto Ql (U) None seen None Seen [facility] Urine clarity by refractomet ry automatedOrdered By: Dilan Nguyễn on 07-13-2022 Clarity Refractometry automated (U) Clear Clear [facility] Urine glucose measurement by automated test strip (mass/volume)Ordered By: Dilan Nguyễn on 07-13-2022 Glucose Auto test strip (U) [Mass/Vol] >=1000 mg/dL Normal [facility] Urine hemoglobin detection b y automated test stripOrdered By: Dilan Nguyễn on 07-13-2022 Hemoglobin Auto test strip Ql (U) Negative Negative [facility] Urine leukocyte esterase det ection by automated test stripOrdered By: Dilan Nguyễn on 07-13-2022 Leukocyte esterase Auto test strip Ql (U) 2+ Negative [facility] Urobilinogen Auto test strip (U) [Mass/Vol]Ordered By: Dilan Nguyễn on 07-13-2022 Urobilinogen (U) [Mass/Vol] Normal mg/dL Normal [facility] Vitamin D+Metabolites [Mass/ volume] in Serum or PlasmaOrdered By: Dilan Nguyễn on 07-13-2022 Vitamin D+Metabolites [Mass/Vol] 48.0 ng/mL 30-100 [facility] Comment on above: VITAMIN D STATUS 25( [place])VITAMIN D RANGE (ng/mL) Deficient <20 Insufficient 20 to <30Sufficient 30 to 100Reference: Brittni BAGLEY,Mitzy [place], Brandt CONNER, et al. Evaluation,treatment, and prevention of vitamin D deficiency; an Endocrine Society clinical practice guideline. JCEM. 2010; 96(7):1911-30. pH Auto test strip (U)Ordere d By: Dilan Nguyễn on 07-13-2022 pH (U) 5.5 [pH] 5.0-9.0 [facility] Dermatopathologyon Dermatopathology Name CHLOE PICKENS Pathologist: GUS VIDAL MD Date of Procedure: 07/10/2022 Date Received: 07/11/2022 Date Reported 07/12/2022 Submitting Physician: REYNA PRESTON MD Location: [facility] Copy To/Referring/Attending: HUNTER BHAGAT MD Other [...] M.D. Electronically Signed Out By GUS VIDAL MD/[facility] By the signature on this report, the individual or group listed as making the Final Interpretation/Diagnosi s certifies that they have reviewed this case. Diagnostic interpretation performed at [facility] [address] [facility] [address] Microscopic Description: A. Microscopic analysis shows an [...] Lentigo and SK. Hx MM. Shave Biopsy. ([facility]). Specimens Submitted As: A: SKIN, L UPPER BACK B: SKIN, L MID BACK Gross Description: A: Received in formalin is one rosas-brown piece of skin measuring [id number]. The specimen is inked and embedded in toto. B: Received in formalin is one rosas-brown piece of skin measuring [id number]. The specimen is inked and embedded in toto. dcp/07/11/2022 [facility] Dermatopathology Laboratory [address] [address] [facility] Comment on above: Performed By: #### D #### Dermatopathology Albumin [Mass/volume] in Ser um or PlasmaOrdered By: Dilan Nguyễn on 05-13-2022 Albumin [Mass/Vol] 3.6 g/dL 3.2-5.5 [facility] Creatinine and Glomerular fi ltration rate.predicted panel (S/P/Bld)Ordered By: Dilan Nguyễn on 05-13-2022 Creatinine [Mass/Vol] 1.77 mg/dL 0.44-1.03 [facility] Estimated glomerular filtrat ion rate (GFR) non- AmericanOrdered By: Dilan Nguyễn on 05-13-2022 GFR/1.73 sq M.predicted among non-blacks MDRD (S/P/Bld) [Vol rate/Area] 28 mL/Min [facility] Laboratory - Chemistry and C hemistry - challengeOrdered By: Dilan Nguyễn on 05-13-2022 Magnesium [Mass/Vol] 2.0 mg/dL 1.6-2.6 [facility] Magnesiumon 05-13-2022 Magnesium [Mass/Vol] 2.9349778 mg/dL Normal 1.6- 2.6 mg/dL [employer] Other No Panel InformationOrdered By: Dilan Nguyễn on 05-13-2022 Estimated GFR () 34 mL/Min [facility] Comment on above: GFR estimated refere nce range: According to KDOQI guidelines, <60 ml/min/1.73m2 is sufficient to diagnose a patient with chronic kidney disease. Pharmacy Creatinine Clearance (Chem N/A [facility] Phosphate [Mass/volume] in S hayder or PlasmaOrdered By: Dilan Nguyễn on 05-13-2022 Phosphate [Mass/Vol] 3.9 mg/dL 2.5-4.6 [facility] Renal Function Panelon 05-13 Albumin [Mass/Vol] 3.844308 g/dL Normal 3.2-5.5 g/dL [employer] Other Calcium [Mass/Vol] 9.6148461 mg/dL Normal 8.2-10 .2 mg/dL [employer] Other CO2 [Moles/Vol] 25.05118571 mmol/L Normal 22.0-3 0.0 mmol/L [employer] Other Creatinine [Mass/Vol] 1.69395017 mg/dL High 0. 44-1.03 mg/dL [employer] Other Phosphate [Mass/Vol] 3.5914370 mg/dL Normal 2.5- 4.6 mg/dL [employer] Other Potassium [Moles/Vol] 4.47765015 mmol/L Normal 3 .5-5.1 mmol/L [employer] Other Renal Function Panel 28 [employer] Other Renal Function Panel 34 [email or web address] Other Serum or plasma anion gap de terminationOrdered By: Dilan Nguyễn on 05-13-2022 Anion gap [Moles/Vol] 11.0 mmol/L 6.0-15.0 [facility] Serum or plasma calcium xavier urement (mass/volume)Ordered By: Dilan Nguyễn on 05-13-2022 Calcium [Mass/Vol] 9.2 mg/dL 8.2-10.2 [facility] Serum or plasma chloride bisi surement (moles/volume)Ordered By: Dilan Nguyễn on 05-13-2022 Chloride [Moles/Vol] 105 mmol/L 95-114 [facility] Serum or plasma glucose xavier urement (mass/volume)Ordered By: Dilan Nguyễn on 05-13-2022 Glucose [Mass/Vol] 189 mg/dL 70-100 [facility] Comment on above: ADA recommended refe rence rangeRandom Glucose Reference Range is dependent on time and content of last meal. Glucose of more than 200 mg/dL in a nonstressed, ambulatory subject supports the diagnosis of Diabetes Mellitus. Serum or plasma potassium me asurement (moles/volume)Ordered By: Dilan Nguyễn on 05-13-2022 Potassium [Moles/Vol] 4.5 mmol/L 3.5-5.1 [facility] Serum or plasma sodium measu rement (moles/volume)Ordered By: Dilan Nguyễn on 05-13-2022 Sodium [Moles/Vol] 137 mmol/L 136-146 [facility] Serum or plasma total carbon dioxide measurement (moles/volume)Ordered By: Dilan Nguyễn on 05-13-2022 CO2 [Moles/Vol] 25.5 mmol/L 22.0-30.0 [facility] Serum or plasma urea nitroge n measurement (mass/volume)Ordered By: Dilan Nguyễn on 05-13-2022 Urea nitrogen [Mass/Vol] 27 mg/dL 9-23 [facility] Body fluid albumin measureme nt (mass/volume)Ordered By: Dilan Nguyễn on 03-06-2022 Albumin (Body fld) [Mass/Vol] 3.8 g/dL 3.2-5.5 [facility] Creatinine and Glomerular fi ltration rate.predicted panel (S/P/Bld)Ordered By: Dilan Nguyễn on 03-06-2022 Creatinine [Mass/Vol] 1.69 mg/dL 0.44-1.03 [facility] Estimated glomerular filtrat ion rate (GFR) non- AmericanOrdered By: Dilan Nguyễn on 03-06-2022 GFR/1.73 sq M.predicted among non-blacks MDRD (S/P/Bld) [Vol rate/Area] 30 mL/Min [facility] Laboratory - Chemistry and C hemistry - challengeOrdered By: Dilan Nguyễn on 03-06-2022 Magnesium [Mass/Vol] 2.1 mg/dL 1.6-2.6 [facility] No Panel InformationOrdered By: Dilan Nguyễn on 03-06-2022 Estimated GFR () 36 mL/Min [facility] Comment on above: GFR estimated refere nce range: According to KDOQI guidelines, <60 ml/min/1.73m2 is sufficient to diagnose a patient with chronic kidney disease. Pharmacy Creatinine Clearance (Chem N/A [facility] Phosphate [Mass/volume] in S hayder or PlasmaOrdered By: Dilan Nguyễn on 03-06-2022 Phosphate [Mass/Vol] 4.3 mg/dL 2.5-4.6 [facility] Serum or plasma anion gap de terminationOrdered By: Dilan Nguyễn on 03-06-2022 Anion gap [Moles/Vol] 15.9 mmol/L 6.0-15.0 [facility] Serum or plasma calcium xavier urement (mass/volume)Ordered By: Dilan Nguyễn on 03-06-2022 Calcium [Mass/Vol] 9.8 mg/dL 8.2-10.2 [facility] Serum or plasma chloride bisi surement (moles/volume)Ordered By: Dilan Nguyễn on 03-06-2022 Chloride [Moles/Vol] 100 mmol/L 95-114 [facility] Serum or plasma glucose xavier urement (mass/volume)Ordered By: Dilan Nguyễn on 03-06-2022 Glucose [Mass/Vol] 84 mg/dL 70-100 [facility] Comment on above: ADA recommended refe rence rangeRandom Glucose Reference Range is dependent on time and content of last meal. Glucose of more than 200 mg/dL in a nonstressed, ambulatory subject supports the diagnosis of Diabetes Mellitus. Serum or plasma potassium me asurement (moles/volume)Ordered By: Dilan Nguyễn on 03-06-2022 Potassium [Moles/Vol] 4.5 mmol/L 3.5-5.1 [facility] Serum or plasma sodium measu rement (moles/volume)Ordered By: Dilan Nguyễn on 03-06-2022 Sodium [Moles/Vol] 139 mmol/L 136-146 [facility] Serum or plasma total carbon dioxide measurement (moles/volume)Ordered By: Dilan Nguyễn on 03-06-2022 CO2 [Moles/Vol] 27.6 mmol/L 22.0-30.0 [facility] Serum or plasma urea nitroge n measurement (mass/volume)Ordered By: Dilan Nguyễn on 03-06-2022 Urea nitrogen [Mass/Vol] 33 mg/dL 01-25 [facility] Urine culture routineOrdered By: Dilan Nguyễn on 02-22-2022 Bacteria identified Cx Nom (U) 2 Days [facility] Automated erythrocytes count in urine sediment (number/area)Ordered By: Dilan Nguyễn on 02-20-2022 RBC Auto (Urine sed) [#/Area] None seen [HPF] 0-4 [facility] Automated leukocytes count i n urine sediment (number/area)Ordered By: Dilan Nguyễn on 02-20-2022 WBC Auto (Urine sed) [#/Area] 5-9 [HPF] 0-4 [facility] Bilirubin Test strip Ql (U)O rdered By: Dilan Nguyễn on 02-20-2022 Bilirubin Ql (U) Negative Negative [facility] Body fluid albumin measureme nt (mass/volume)Ordered By: Dilan Nguyễn on 02-20-2022 Albumin (Body fld) [Mass/Vol] 3.5 g/dL 3.2-5.5 [facility] Color Auto (U)Ordered By: Ab halie Nguyễn on 02-20-2022 Color (U) Yellow Yellow [facility] Creatinine [Mass/volume] in UrineOrdered By: Dilan Nguyễn on 02-20-2022 Creatinine (U) [Mass/Vol] 33.4 mg/dL [facility] Comment on above: No reference range e stablished Creatinine and Glomerular fi ltration rate.predicted panel (S/P/Bld)Ordered By: Dilan Nguyễn on 02-20-2022 Creatinine [Mass/Vol] 1.69 mg/dL 0.44-1.03 [facility] Erythrocyte distribution wid th Auto (RBC) [Ratio]Ordered By: Dilan Nguyễn on 02-20-2022 Erythrocyte distribution width (RBC) [Ratio] 14.7 % 11.9-15.3 [facility] Estimated glomerular filtrat ion rate (GFR) non- AmericanOrdered By: Dilan Nguyễn on 02-20-2022 GFR/1.73 sq M.predicted among non-blacks MDRD (S/P/Bld) [Vol rate/Area] 30 mL/Min [facility] Hematocrit Auto (Bld) [Volum e fraction]Ordered By: Dilan Nguyễn on 02-20-2022 Hematocrit (Bld) [Volume fraction] 44.9 % 34.0-46.4 [facility] Hemoglobin [Mass/volume] in BloodOrdered By: Dilan Nguyễn on 02-20-2022 Hemoglobin (Bld) [Mass/Vol] 14.5 g/dL 11.8-15.4 [facility] Ketones Auto test strip (U) [Mass/Vol]Ordered By: Dilan Nguyễn on 02-20-2022 Ketones (U) [Mass/Vol] Negative Negative [facility] Laboratory - Chemistry and C hemistry - challengeOrdered By: Dilan Nguyễn on 02-20-2022 Magnesium [Mass/Vol] 1.9 mg/dL 1.6-2.6 [facility] Laboratory - UrinalysisOrder ed By: Dilan Nguyễn on 02-20-2022 Hyaline casts LM Ql (Urine sed) 0-8 [LPF] 0-8 [facility] MCH Auto (RBC) [Entitic mass ]Ordered By: Dilan Nguyễn on 02-20-2022 MCH (RBC) [Entitic mass] 28.8 pg 24.7-34.3 [facility] MCHC Auto (RBC) [Mass/Vol]Or dered By: Dilan Nguyễn on 02-20-2022 MCHC (RBC) [Mass/Vol] 32.3 g/dL 32.0-35.0 [facility] MCV Auto (RBC) [Entitic vol] Ordered By: Dilan Nguyễn on 10-19-2022 MCV (RBC) [Entitic vol] 89.2 fL 80-100 [facility] Nitrite Test strip Ql (U)Ord ered By: Dilan Nguyễn on 02-20-2022 Nitrite Ql (U) Negative Negative [facility] No Panel InformationOrdered By: Dilan Nguyễn on 02-20-2022 25-Hydroxy Vitamin D Total 43.0 ng/mL 30-100 [facility] Comment on above: VITAMIN D STATUS 25( [place])VITAMIN D RANGE (ng/mL) Deficient <20 Insufficient 20 to <30Sufficient 30 to 100Reference: Brittni MF,Mitzy NC, Brandt CONNER, et al. Evaluation,treatment, and prevention of vitamin D deficiency; an Endocrine Society clinical practice guideline. JCEM. 2010; 96(7):1911-30. Estimated GFR () 36 mL/Min [facility] Comment on above: GFR estimated refere nce range: According to KDOQI guidelines, <60 ml/min/1.73m2 is sufficient to diagnose a patient with chronic kidney disease. Pharmacy Creatinine Clearance (Chem N/A [facility] Phosphate [Mass/volume] in S hayder or PlasmaOrdered By: Dilan Nguyễn on 02-20-2022 Phosphate [Mass/Vol] 3.9 mg/dL 2.5-4.6 [facility] Platelet mean volume Auto (B ld) [Entitic vol]Ordered By: Dilan Nguyễn on 02-20-2022 Platelet mean volume (Bld) [Entitic vol] 8.6 fL 6.3-10.7 [facility] Platelets Auto (Bld) [#/Vol] Ordered By: Dilan Nguyễn on 02-20-2022 Platelets (Bld) [#/Vol] 327 10*3/uL 150-450 [facility] Protein Auto test strip (U) [Mass/Vol]Ordered By: Dilan Nguyễn on 02-20-2022 Protein (U) [Mass/Vol] Negative Negative [facility] Protein [Mass/volume] in Uri neOrdered By: Dilan Nguyễn on 02-20-2022 Protein (U) [Mass/Vol] mg/dL 0-9 [facility] RBC Auto (Bld) [#/Vol]Ordere d By: Dilan Nguyễn on 02-20-2022 RBC (Bld) [#/Vol] 5.04 10*6/uL 3.60-5.00 [facility] Serum or plasma anion gap de terminationOrdered By: Dilan Nguyễn on 02-20-2022 Anion gap [Moles/Vol] 10.6 mmol/L 6.0-15.0 [facility] Serum or plasma calcium xavier urement (mass/volume)Ordered By: Dilan Nguyễn on 02-20-2022 Calcium [Mass/Vol] 9.1 mg/dL 8.2-10.2 [facility] Serum or plasma chloride bisi surement (moles/volume)Ordered By: Dilan Nguyễn on 02-20-2022 Chloride [Moles/Vol] 105 mmol/L 95-114 [facility] Serum or plasma glucose xavier urement (mass/volume)Ordered By: Dilan Nguyễn on 02-20-2022 Glucose [Mass/Vol] 116 mg/dL 70-100 [facility] Comment on above: ADA recommended refe rence rangeRandom Glucose Reference Range is dependent on time and content of last meal. Glucose of more than 200 mg/dL in a nonstressed, ambulatory subject supports the diagnosis of Diabetes Mellitus. Serum or plasma intact parat hyroid hormone measurement (mass/volume)Ordered By: Dilan Nguyễn on 02-20-2022 Parathyrin.intact [Mass/Vol] 48.5 pg/mL 12-88 [facility] Serum or plasma potassium me asurement (moles/volume)Ordered By: Dilan Nguyễn on 02-20-2022 Potassium [Moles/Vol] 3.9 mmol/L 3.5-5.1 [facility] Serum or plasma sodium measu rement (moles/volume)Ordered By: Dilan Nguyễn on 02-20-2022 Sodium [Moles/Vol] 137 mmol/L 136-146 [facility] Serum or plasma total carbon dioxide measurement (moles/volume)Ordered By: Dilan Nguyễn on 02-20-2022 CO2 [Moles/Vol] 25.3 mmol/L 22.0-30.0 [facility] Serum or plasma urea nitroge n measurement (mass/volume)Ordered By: Dilan Nguyễn on 02-20-2022 Urea nitrogen [Mass/Vol] 26 mg/dL 01-25 [facility] Serum or plasma uric acid me asurement (mass/volume)Ordered By: Dilan Nguyễn on 02-20-2022 Urate [Mass/Vol] 4.3 mg/dL 2.6-7.2 [facility] Specific gravity Auto test s trip (U) [Rel density]Ordered By: Dilan Nguyễn on 02-20-2022 Specific gravity (U) [Rel density] 1.010 1.001-1.030 [facility] Squamous epithelial cells de tection in urine sediment by light microscopyOrdered By: Dilan Nguyễn on 02-20-2022 Epithelial cells.squamous LM Ql (Urine sed) 1-2 [HPF] 0-2 [facility] Urine bacteria detection by automated methodOrdered By: Dilan Nguyễn on 02-20-2022 Bacteria Auto Ql (U) None seen None Seen [facility] Urine clarity by refractomet ry automatedOrdered By: Dilan Nguyễn on 02-20-2022 Clarity Refractometry automated (U) Clear Clear [facility] Urine culture routineOrdered By: Dilan Nguyễn on 02-20-2022 Bacteria identified Cx Nom (U) 2 Days [facility] Urine glucose measurement by automated test strip (mass/volume)Ordered By: Dilan Nguyễn on 02-20-2022 Glucose Auto test strip (U) [Mass/Vol] Normal mg/dL Normal [facility] Urine hemoglobin detection b y automated test stripOrdered By: Dilan Nguyễn on 02-20-2022 Hemoglobin Auto test strip Ql (U) Negative Negative [facility] Urine leukocyte esterase det ection by automated test stripOrdered By: Dilan Nguyễn on 02-20-2022 Leukocyte esterase Auto test strip Ql (U) 3+ Negative [facility] Urine protein/creatinine rat ioOrdered By: Dilan Nguyễn on 02-20-2022 Protein/Creatinine (U) [Ratio] TNP [facility] Comment on above: Test not performed Urobilinogen Auto test strip (U) [Mass/Vol]Ordered By: Dilan Nguyễn on 02-20-2022 Urobilinogen (U) [Mass/Vol] Normal mg/dL Normal [facility] WBC Auto (Bld) [#/Vol]Ordere d By: Dilan Sergio on 02-20-2022 WBC (Bld) [#/Vol] 8.0 10*3/uL 3.8-11.6 [facility] pH Auto test strip (U)Ordere d By: Dilan Sergio on 02-20-2022 pH (U) 6.0 [pH] 5.0-9.0 [facility] Office Visit (Oncology Surge ry)on 06-18-2021 Follow-up [...] She will continue to follow with Dr. Preston in Dermatology for TBSE. She understands that [...] service. Left shoulder melanoma History of Present IllnessMs. Mitch presented as a 69 year old Female [...] any other skin lesions. She saw her Refund Clerk Dr. Kelley and underwent a biopsy of the left arm lesion which demonstrated a 0.6mm non-ulcerated, no mitoses, melanoma. Total body skin exam was not performed at that time. Surgery 10/08/2019 - WIde excision left upper arm melanoma Pathology - No residual neoplasm 06/18/2021 ?routine follow-up. The patient continues to follow with Dr. Preston in dermatology and has had no concerning biopsies. She is being seen by a Restaurant Worker for various issues including Left arm swelling. [...] MG Oral TabletTAKE 1 TABLET DAILY. Biotin [id number] 1 CAPSULE ORALLY bid Carvedilol 12.5 MG [...] Radiologyon 12-15-2020 US Extremity limited Normal MG-S urgery-[facility] 3991 Work Phone: US Extremity Please click on the link to view the study images Normal 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 H/o pulmonary embolism on [facility] Surgery 10/08/2019 - WIde excision left upper [...] the patient is well connected to her senior software engineering manager and should continue with total-body skin examinations by Dr. Preston. I can follow on an as-needed basis. [...] any other skin lesions. She saw her Refund Clerk Dr. Kelley and underwent a biopsy of the left arm lesion which demonstrated a 0.6mm non-ulcerated, no mitoses, melanoma. Total body skin exam was not performed at that time. Surgery 10/08/2019 - WIde excision left upper arm melanoma Pathology - No residual neoplasm 11/27/2020?routine follow-up. The patient continues to follow with Dr. Preston in dermatology and has had no concerning [...] Some irritable (more content not included)... [facility] Visit (Oncology Surge ry)on 08-14-2020 Follow-up [...] The patient is plugged in with Dr. Preston for dermatology in has an upcoming visit [...] any other skin lesions. She saw her Refund Clerk Dr. Kelley and underwent a biopsy of the left arm lesion which demonstrated a 0.6mm non-ulcerated, no mitoses, melanoma. Total body skin exam was not performed at that time. Surgery 10/08/2019 - WIde excision left upper arm melanoma Pathology - No residual neoplasm 08/15/2020?routine follow-up. The patient denies any recent biopsies. She has established care with Dr. Reyna Preston in dermatology. She has another visit with Dr. Preston within the next month for surveillance. Since [...] [Mass/Vol] 257 mg/dL High 74 - 99 [facility] Comment on above: Result Comment: Erna short MD/RN Performed By: #### G RYAN #### [facility] [address] [place] [address] Glucose [Mass/Vol] 281 mg/dL High 74 - 99 [facility] Comment on above: Performed By: #### G RYAN #### [address] [address] History and Physical - Surge ry > [...] any other skin lesions. She saw her Refund Clerk Dr. Kelley and underwent a biopsy of [...] Updated: 08-Oct-2019 07:22 by Heath Francisco) Normal [facility] Operative Reports - Ronda on 10-08-2019 Operative Reports - Ronda Preoperative diagnosis: Left upper arm melanoma Postoperative diagnosis: Same Procedure: 1) Wide excision Left upper arm melanoma with 1 cm. margins and intermediate repair of a 9cm. wound defect. Surgeon: Heath Francisco M.D. Train Operations Manager: Tanya MCGREGOR Anesthesia: MAC and local [...] REMOVED LT ARM Primary Contact Name and [phone] Patient Belongingsnone Medications Brought to Hospitalno Are you currently using the Personal Electronic Health Record or Thubrikar Aortic ValveABODOno Are you interested in learning more about Thubrikar Aortic ValveCARE for the management of your healthnot at this time General Health: Blood Avoidance/Restrictionsn one Weight in kg120 kilogram(s) Weight in blh832.5 pound(s) Weight Methodstated Height in cm165.1 centimeter(s) Height in feet5 feet Height in inches5 inch(es) Height Methodstated BMI (kg/m2)44.023 square meter Patient or Family Member Reaction to Anesthesiano previous reaction Health Mgmt: Barriers to Managing Healthnone [facility] AND [facility]OBLEM L[facility] Relationship/Environ: Living [...] Learning Preferencesverbal instruction Cultural Considerationsnone Developmental Considerationsnone Yarsani Considerationsnone Other learner availableno [place] RiskPatient location auto qualifies him/her for HIGH RISK. Are there any cultural, spiritual, jewish practices/values/needs that are important for us to [...] Updated: 08-Oct-2019 07:36 by Danuta Ngo (VENANCIO) [facility] Preop Checkliston 10-08-2019 Preop Checklist Preop Checklist: Preop Checklist: Arrival [id number] Arrival Time06:10 Procedure TypeLT ARM MELANOMA REOVED Temperature C37.4 degrees C Temperature F99.3 degrees F Heart Rate74 beats per minute Respiratory Rate16 breath per minute Blood Pressure Kifymjqg182 mm/Hg Blood Pressure Uvuiepxuo05 mm/Hg NPO [id number] 23:00 ID Band Onyes Allergy Bandyes Consent [...] Last Updated: 08-Oct-2019 07:39 by Danuta Ngo (VENANCIO) Normal [facility] NEW MICROALBUMINon 9 Creatinine mass conc (U) 59.2 mg/dL Normal [facility] Comment on above: Order Comment: THE M ICROALBUMIN IS < 6.0 THEREFORE THE MICROALBUMIN/CREATININE RATIO IS UNDETECTABLE. Performed By: #### 8 00 #### [facility] Unless Otherwise Noted [address] [address] / COLBin #4724/TAYLER # [id number] Microalbumin <6.0 Normal 0.0-30.0 [facility] Comment on above: Order Comment: THE M ICROALBUMIN IS < 6.0 THEREFORE THE MICROALBUMIN/CREATININE RATIO IS UNDETECTABLE. Performed By: #### 8 00 #### [facility] Unless Otherwise Noted [address] [address] / COLA #4724/CLIA # [id number] Urine A/C Ratio -99.0 mg/g Low 0.0-30.0 [facility] Comment on above: Order Comment: THE M ICROALBUMIN IS < 6.0 THEREFORE THE MICROALBUMIN/CREATININE RATIO IS UNDETECTABLE. Performed By: #### 8 00 #### [facility] Unless Otherwise Noted [address] [address] / COLA #4724/CLIA # [id number] LIPID PANEL (INCLUDES CALCUL ATED LDL)on 07-08-2018 Cholesterol in LDL/Cholesterol in HDL mass ratio 1.8 Normal <3.5 [facility] Comment on above: Performed By: #### 3 29 #### [facility] Unless Otherwise Noted [address] [address] / COLA #4724/CLIA # [id number] Cholesterol mass conc 165 mg/dL Normal <200 End [facility] Comment on above: Performed By: #### 3 29 #### [facility] Unless Otherwise Noted [address] [address] / COLA #4724/CLIA # [id number] Cholesterol.total/Chol esterol in HDL mass ratio 3.8 {ratio} Normal <5 [facility] Comment on above: Result Comment: [employer] [address] [place] [address] CLIA No. [id number] CAP Accreditation No. [id number] Human Machine Interface Engineer: Ray Tate M.D. Performed By: #### 3 29 #### [facility] Unless Otherwise Noted [address] [address] / COLA #4724/CLIA # [id number] HDL-CHOL 43.1 mg/dL Normal >39 [facility] Comment on above: Result Comment: HDL <40 mg/dL IS A RISK FACTOR FOR CORONARY HEART DISEASE. HDL >60 mg/dL IS A NEGATIVE RISK FACTOR FOR CORONARY HEART DISEASE. Performed By: #### 3 29 #### [facility] Unless Otherwise Noted [address] [address] / COLA #4724/CLIA # [id number] LDL-CHOL, CALCULATED 76 mg/dL Normal <130 [facility] Comment on above: Result Comment: LDL CHOLESTEROL REFERENCE RANGE FOR 0-19 YEARS: DESIRABLE <110 mg/dL, BORDERLINE 110-129, HIGH RISK >130 LDL CHOLESTEROL REFERENCE RANGE FOR ADULTS: DESIRABLE <100 mg/dL, BORDERLINE 130-159, HIGH RISK >160 REFERENCE RANGES REVISED 10/13/15 ACCORDING TO NCEP GUIDELINES Performed By: #### 3 29 #### [facility] Unless Otherwise Noted [address] [address] / COLA #4724/CLIA # [id number] Triglyceride mass conc 232 mg/dL High <150 En [facility] Comment on above: Performed By: #### 3 29 #### [facility] [place] Unless Otherwise Noted [address] [address] / COLA #4724/CLIA # [id number] VLDL-CHOL, CALCULATED 46 mg/dL High <30 [facility] Comment on above: Performed By: #### 3 29 #### [facility] Unless Otherwise Noted [address] [address] / COLA #4724/CLIA # [id number] PTH, Intacton 03-07-2018 PTH, Intact 21.59 pg/mL Normal 15.0-65.0 [facility] Comment on above: Result Comment: SAMP LES FROM PATIENTS ROUTINELY RECEIVING HIGH DOSE BIOTIN THERAPY MAY SHOW FALSELY DEPRESSED RESULTS. ADDITIONAL INFORMATION MAY BE REQUIRED FOR DIAGNOSIS. Performed By: #### R ENP, URTPRT, MG, UAMIC, URI ####[address] [place], [place] [address] #### CBC, PTHNCA, VD25 ####[address] [address] Vitamin D 25 OHon 03-07-2018 Vitamin D 25 [place] 25.9 ng/mL Low 30.0-100.0 [facility] Comment on above: Result Comment: Refe rence Range:Vitamin D status Range Deficiency <20 ng/mL Mild Deficiency 20-30 ng/mL Sufficiency 30-100 ng/mL Toxicity >100 ng/mL Performed By: #### R ENP, URTPRT, MG, UAMIC, URI ####[address] [place] [address] #### CBC, PTHNCA, VD25 ####[address] [address] CBCon 03-06-2018 Erythrocyte distribution width Auto Ratio (RBC) 14.9 % High 11.8-14.4 [facility] Comment on above: Performed By: #### U RI, UAMIC, URCRE, RENP, MG, CBC ####[address] [place] [address] #### VD25, PTHNCA ####[address] [address] Hematocrit Auto Volume Fraction (Bld) 43.7 % Normal 36.3-47.1 [facility] Comment on above: Performed By: #### U RI, UAMIC, URCRE, RENP, MG, CBC ####[address] [place] [address] #### VD25, PTHNCA ####[address] [id number] Hemoglobin mass conc (Bld) 13.5 g/dL Normal 11.9-15.1 [facility] Comment on above: Performed By: #### U RI, UAMIC, URCRE, RENP, MG, CBC ####[address] [place] [id number] #### VD25, PTHNCA ####[address] [id number] MCH Auto Entitic mass (RBC) 27.2 pg Normal 25.2-33.5 [facility] Comment on above: Performed By: #### U RI, UAMIC, URCRE, RENP, MG, CBC ####[address] [place] [id number] #### VD25, PTHNCA ####[address] [address] MCHC Auto mass conc (RBC) 30.9 g/dL Normal 28.4-34.8 [facility] Comment on above: Performed By: #### U RI, UAMIC, URCRE, RENP, MG, CBC ####[address] [place], [place] [phone] #### VD25, PTHNCA ####[address] [address] MCV Auto Entitic volume (RBC) 87.9 fL Normal 82.6-102.9 [facility] Comment on above: Performed By: #### U RI, UAMIC, URCRE, RENP, MG, CBC ####[address] [place], [place] [phone] #### VD25, PTHNCA ####[address] [address] NRBC Automated 0.0 per 100 WBC Normal 0.0 [facility] Comment on above: Performed By: #### U RI, UAMIC, URCRE, RENP, MG, CBC ####[address] [place] [address] #### VD25, PTHNCA ####[address] [address] Platelet mean volume Auto Entitic volume (Bld) 10.1 fL Normal 8.1-13.5 [facility] Comment on above: Performed By: #### U RI, UAMIC, URCRE, RENP, MG, CBC ####[address] [place] [address] #### VD25, PTHNCA ####[address] [address] Platelets Auto #/vol (Bld) 431 10*3/uL Normal 138-453 [facility] Comment on above: Performed By: #### U RI, UAMIC, URCRE, RENP, MG, CBC ####[address] [place] [address] #### VD25, PTHNCA ####[address] [address] RBC Auto #/vol (Bld) 4.97 10*6/uL Normal 3.95-5.11 [facility] Comment on above: Performed By: #### U RI, UAMIC, URCRE, RENP, MG, CBC ####[address] [place] [address] #### VD25, PTHNCA ####[address] [address] WBC Auto #/vol (Bld) 10.2 10*3/uL Normal 3.5-11.3 [facility] Comment on above: Performed By: #### U RI, UAMIC, URCRE, RENP, MG, CBC ####[address] [place] [address] #### VD25, PTHNCA ####[address] [address] Creatinine,Random Uron 03-06 Creatinine mass conc 37.0 mg/dL Normal 28.0-217.0 [facility] Comment on above: Performed By: #### R ENP, URTPRT, MG, UAMIC, URI ####[address] [place], [place] [address] #### CBC, PTHNCA, VD25 ####[address] [address] Creatinine mass conc 36.3 mg/dL Normal 28.0-217.0 [facility] Comment on above: Performed By: #### U RI, UAMIC, URCRE, RENP, MG, CBC ####[address] [place], [place] [address] #### VD25, PTHNCA ####[address] [address] Magnesiumon 03-06-2018 Magnesium mass conc 2.2 mg/dL Normal 1.6-2.6 [facility] Comment on above: Performed By: #### R ENP, URTPRT, MG, UAMIC, URI ####[address] [place], [place] [address] #### CBC, PTHNCA, VD25 ####[address] [address] Renal Function Panelon 03-06 (cont.) Normal [facility] Comment on above: Result Comment: Aver age GFR for 60-69 years old: 85 mL/min/1.73sq mChronic Kidney Disease: <60 mL/min/1.73sq mKidney failure: <15 mL/min/1.73sq meGFR calculated using average adult body mass. Additional eGFR calculator available at:http://www.[employer]/multiple_crcl_2012.htm Performed By: #### R ENP, URTPRT, MG, UAMIC, URI ####[address] [place] [address] #### CBC, PTHNCA, VD25 ####[place] [address] [place], [place] [id number] Albumin mass conc 4.0 g/dL Normal 3.5-5.2 [facility] Comment on above: Performed By: #### R ENP, URTPRT, MG, UAMIC, URI ####[address] [place] [address] #### CBC, PTHNCA, VD25 ####[place] [address] [place], [place] [phone] Anion gap 3 molar conc 12 mmol/L Normal 9-17 [facility] Comment on above: Performed By: #### R ENP, URTPRT, MG, UAMIC, URI ####[address] [place] [address] #### CBC, PTHNCA, VD25 ####[place] [address] [place], [place] [phone] BUN/CRE Ratio 18 Normal 9-20 [facility] Comment on above: Performed By: #### R ENP, URTPRT, MG, UAMIC, URI ####[address] [place] [address] #### CBC, PTHNCA, VD25 ####[place] [address] [place] [address] Calcium mass conc 9.3 mg/dL Normal 8.6-10.4 [facility] Comment on above: Performed By: #### R ENP, URTPRT, MG, UAMIC, URI ####[address] [place] [address] #### CBC, PTHNCA, VD25 ####[address] [address] Chloride molar conc 104 mmol/L Normal 98-107 [facility] Comment on above: Performed By: #### R ENP, URTPRT, MG, UAMIC, URI ####[address] [place] [address] #### CBC, PTHNCA, VD25 ####[address] [address] CO2 molar conc 24 mmol/L Normal 20-31 [facility] Comment on above: Performed By: #### R ENP, URTPRT, MG, UAMIC, URI ####[address] [place] [address] #### CBC, PTHNCA, VD25 ####[address] [address] Creatinine mass conc 1.47 mg/dL High 0.50-0.90 [facility] Comment on above: Performed By: #### R ENP, URTPRT, MG, UAMIC, URI ####[address] [place] [address] #### CBC, PTHNCA, VD25 ####[place] [address] [place] [address] GFR, Amer 43 mL/min Low >60 [facility] Comment on above: Performed By: #### R ENP, URTPRT, MG, UAMIC, URI ####[address] [place] [address] #### CBC, PTHNCA, VD25 ####[address] [address] GFR,non Amer 36 mL/min Low >60 [facility] Comment on above: Performed By: #### R ENP, URTPRT, MG, UAMIC, URI ####[address] [place] [address] #### CBC, PTHNCA, VD25 ####[address] [address] Glucose mass conc 63 mg/dL Low 70-99 [facility] Comment on above: Performed By: #### R ENP, URTPRT, MG, UAMIC, URI ####[address] [place] [address] #### CBC, PTHNCA, VD25 ####[address] [address] Phosphorus, Inorg. 3.5 mg/dL Normal 2.6-4.5 [facility] Comment on above: Performed By: #### R ENP, URTPRT, MG, UAMIC, URI ####[address] [place] [address] #### CBC, PTHNCA, VD25 ####[address] [address] Potassium molar conc 4.0 mmol/L Normal 3.7-5.3 [facility] Comment on above: Performed By: #### R ENP, URTPRT, MG, UAMIC, URI ####[address] [place] [address] #### CBC, PTHNCA, VD25 ####[place] [address] [place] [address] Sodium molar conc 140 mmol/L Normal 135-144 [facility] Comment on above: Performed By: #### R ENP, URTPRT, MG, UAMIC, URI ####[address] [place], [place] [address] #### CBC, PTHNCA, VD25 ####[place] [address] [place] [address] Staging: Normal [facility] Comment on above: Result Comment: Stag e 1: Some kidney damage normal GFRStage 2: Mild kidney damage GFR 60-89Stage 3: Moderate kidney damage GFR 30-59Stage 4: Severe kidney damage GFR 15-29Stage 5: Severe kidney damage GFR <15ESRD - chronic treatment by dialysis or transplant Performed By: #### R ENP, URTPRT, MG, UAMIC, URI ####[address] [place], [place] [address] #### FAMILIA, PTHNCA, VD25 ####[address] [address] Urea nitrogen mass conc 27 mg/dL High 8-23 [facility] Comment on above: Performed By: #### R ENP, URTPRT, MG, UAMIC, URI ####[address] [place], [place] [address] #### CBC, PTHNCA, VD25 ####[place] [address] [place] [address] Uric Acidon 03-06-2018 Urate mass conc 3.7 mg/dL Normal 2.4-5.7 [facility] Comment on above: Performed By: #### R ENP, URTPRT, MG, UAMIC, URI ####[address] [place], [place] [address] #### CBC, PTHNCA, VD25 ####[address] [address] Urinalysis w/ Microon 2017 ----- Normal [facility] Comment on above: Performed By: #### R ENP, URTPRT, MG, UAMIC, URI ####[address] [place] [address] #### CBC, PTHNCA, VD25 ####[address] [address] Acetoacetic Acid,Ur Negative Normal NEG [facility] Comment on above: Performed By: #### R ENP, URTPRT, MG, UAMIC, URI ####[address] [place] [address] #### CBC, PTHNCA, VD25 ####[address] [address] Bacteria TRACE Abnormal NONE [facility] Comment on above: Performed By: #### R ENP, URTPRT, MG, UAMIC, URI ####[address] [place] [address] #### CBC, PTHNCA, VD25 ####[address] [address] Bilirubin, SemiQt,Ur Negative Normal NEG [facility] Comment on above: Performed By: #### R ENP, URTPRT, MG, UAMIC, URI ####[address] [place] [address] #### CBC, PTHNCA, VD25 ####[address] [address] Color YELLOW Normal YEL [facility] Comment on above: Performed By: #### R ENP, URTPRT, MG, UAMIC, URI ####[address] [place] [address] #### CBC, PTHNCA, VD25 ####[address] [address] Epithelial cells 0 TO 2 Normal 0-25 [facility] Comment on above: Performed By: #### R ENP, URTPRT, MG, UAMIC, URI ####[address] [place] [address] #### CBC, PTHNCA, VD25 ####[address] [address] Glucose,Semi-qnt,Ur Negative Normal NEG [facility] Comment on above: Performed By: #### R ENP, URTPRT, MG, UAMIC, URI ####[address] [place] [address] #### CBC, PTHNCA, VD25 ####[address] [address] Hemoglobin, Ur Negative Normal NEG [facility] Comment on above: Performed By: #### R ENP, URTPRT, MG, UAMIC, URI ####[address] [place] [address] #### CBC, PTHNCA, VD25 ####[address] [address] Leuckocyte Esterase SMALL Abnormal NEG [facility] Comment on above: Performed By: #### R ENP, URTPRT, MG, UAMIC, URI ####[address] [place] [address] #### CBC, PTHNCA, VD25 ####[address] [address] Mucus Strands TRACE Abnormal NONE [facility] Comment on above: Performed By: #### R ENP, URTPRT, MG, UAMIC, URI ####[address] [place] [address] #### CBC, PTHNCA, VD25 ####[address] [address] Nitrite,Ur Negative Normal NEG [facility] Comment on above: Performed By: #### R ENP, URTPRT, MG, UAMIC, URI ####[address] [place] [address] #### CBC, PTHNCA, VD25 ####[address] [address] PH,Ur 5.5 Normal 5.0-9.0 [facility] Comment on above: Performed By: #### R ENP, URTPRT, MG, UAMIC, URI ####[address] [place] [address] #### CBC, PTHNCA, VD25 ####[address] [address] Protein mass conc Negative Normal NEG [facility] Comment on above: Performed By: #### R ENP, URTPRT, MG, UAMIC, URI ####[address] [place] [address] #### CBC, PTHNCA, VD25 ####[address] [address] RBC Test strip #/vol (U) 0 TO 2 Normal 0-2 [facility] Comment on above: Performed By: #### R ENP, URTPRT, MG, UAMIC, URI ####[address] [place] [address] #### CBC, PTHNCA, VD25 ####[address] [address] Spec. [place],Ur 1.015 Normal 1.010-1.020 [facility] Comment on above: Performed By: #### R ENP, URTPRT, MG, UAMIC, URI ####[address] [place] [address] #### CBC, PTHNCA, VD25 ####[address] [address] Turbidity CLEAR Normal CLEAR [facility] Comment on above: Performed By: #### R ENP, URTPRT, MG, UAMIC, URI ####[address] [place] [address] #### CBC, PTHNCA, VD25 ####[address] [address] Urine WBC's 0 TO 2 Normal 0-5 [facility] Comment on above: Performed By: #### R ENP, URTPRT, MG, UAMIC, URI ####[address] [place] [address] #### CBC, PTHNCA, VD25 ####[address] [address] Urobilinogen,Ur Normal Normal NORM [facility] Comment on above: Performed By: #### R ENP, URTPRT, MG, UAMIC, URI ####[address] [place] [address] #### CBC, PTHNCA, VD25 ####[address] [address] Amorphous Sediment NOT REPORTED Normal NONE [facility] Comment on above: Performed By: #### R ENP, URTPRT, MG, UAMIC, URI ####[address] [place] [address] #### CBC, PTHNCA, VD25 ####[address] [address] Casts NOT REPORTED Normal [facility] Comment on above: Performed By: #### R ENP, URTPRT, MG, UAMIC, URI ####[address] [place] [address] #### CBC, PTHNCA, VD25 ####[address] [address] Comment NOT REPORTED Normal [facility] Comment on above: Performed By: #### R ENP, URTPRT, MG, UAMIC, URI ####[address] [place] [address] #### CBC, PTHNCA, VD25 ####[address] [address] Crystals NOT REPORTED Normal NONE [facility] Comment on above: Performed By: #### R ENP, URTPRT, MG, UAMIC, URI ####[address] [place] [address] #### CBC, PTHNCA, VD25 ####[address] [address] Epithelial, Renal NOT REPORTED Normal 0 [facility] Comment on above: Performed By: #### R ENP, URTPRT, MG, UAMIC, URI ####[address] [place] [address] #### CBC, PTHNCA, VD25 ####[address] [address] Other Observations NOT REPORTED Normal NREQ [facility] Comment on above: Performed By: #### R ENP, URTPRT, MG, UAMIC, URI ####[address] [place] [address] #### CBC, PTHNCA, VD25 ####[address] [place] [address] Trichomonas NOT REPORTED Normal NONE [facility] Comment on above: Performed By: #### R ENP, URTPRT, MG, UAMIC, URI ####[address] [place] [address] #### CBC, PTHNCA, VD25 ####[address] [place] [address] Yeast NOT REPORTED Normal NONE [facility] Comment on above: Performed By: #### R ENP, URTPRT, MG, UAMIC, URI ####[address] [place] [address] #### CBC, PTHNCA, VD25 ####[address] [place] [address] PTH, Intacton 09-20-2017 PTH, Intact 17.31 pg/mL Normal 15.0-65.0 [facility] Comment on above: Result Comment: SAMP LES FROM PATIENTS ROUTINELY RECEIVING HIGH DOSE BIOTIN THERAPY MAY SHOW FALSELY DEPRESSED RESULTS. ADDITIONAL INFORMATION MAY BE REQUIRED FOR DIAGNOSIS.Performed at [address] [place] [address] Performed By: #### R ENP, URTPRT, MG, UAMIC, URI ####[address] [place] [address] #### CBC, PTHNCA, VD25 ####[address] [place] [address] Vitamin D 25 OHon 09-20-2017 Vitamin D 25 [place] 21.8 ng/mL Low 30.0-100.0 [facility] Comment on above: Result Comment: Refe rence Range:Vitamin D status Range Deficiency <20 ng/mL Mild Deficiency 20-30 ng/mL Sufficiency 30-100 ng/mL Toxicity >100 ng/mLPerformed at [address] [address] Performed By: #### R ENP, URTPRT, MG, UAMIC, URI ####[address] [place], [place] [address] #### CBC, PTHNCA, VD25 ####[address] [address] CBCon 09-19-2017 Erythrocyte distribution width Auto Ratio (RBC) 15.8 % High 11.8-14.4 [facility] Comment on above: Performed By: #### R ENP, URTPRT, MG, UAMIC, URI ####[address] [place], [place] [address] #### CBC, PTHNCA, VD25 ####[address] [address] Hematocrit Auto Volume Fraction (Bld) 40.2 % Normal 36.3-47.1 [facility] Comment on above: Performed By: #### R ENP, URTPRT, MG, UAMIC, URI ####[address] [place] [address] #### CBC, PTHNCA, VD25 ####[address] [address] Hemoglobin mass conc (Bld) 12.5 g/dL Normal 11.9-15.1 [facility] Comment on above: Performed By: #### R ENP, URTPRT, MG, UAMIC, URI ####[address] [place] [address] #### CBC, PTHNCA, VD25 ####[address] [id number] MCH Auto Entitic mass (RBC) 27.7 pg Normal 25.2-33.5 [facility] Comment on above: Performed By: #### R ENP, URTPRT, MG, UAMIC, URI ####[address] [place] [address] #### CBC, PTHNCA, VD25 ####[address] [id number] MCHC Auto mass conc (RBC) 31.1 g/dL Normal 28.4-34.8 [facility] Comment on above: Performed By: #### R ENP, URTPRT, MG, UAMIC, URI ####[address] [place] [id number] #### CBC, PTHNCA, VD25 ####[address] [id number] MCV Auto Entitic volume (RBC) 88.9 fL Normal 82.6-102.9 [facility] Comment on above: Performed By: #### R ENP, URTPRT, MG, UAMIC, URI ####[address] [place] [address] #### CBC, PTHNCA, VD25 ####[address] [id number] NRBC Automated 0.0 per 100 WBC Normal 0.0 [facility] Comment on above: Result Comment: Perf ormed at [address] [id number] [phone] Performed By: #### R ENP, URTPRT, MG, UAMIC, URI ####[address] [place] [id number] #### CBC, PTHNCA, VD25 ####[address] [id number] Platelet mean volume Auto Entitic volume (Bld) 10.0 fL Normal 8.1-13.5 [facility] Comment on above: Performed By: #### R ENP, URTPRT, MG, UAMIC, URI ####[address] [place], [place] [address] #### CBC, PTHNCA, VD25 ####[address] [address] Platelets Auto #/vol (Bld) 392 10*3/uL Normal 138-453 [facility] Comment on above: Performed By: #### R ENP, URTPRT, MG, UAMIC, URI ####[address] [place] [address] #### CBC, PTHNCA, VD25 ####[address] [address] RBC Auto #/vol (Bld) 4.52 10*6/uL Normal 3.95-5.11 [facility] Comment on above: Performed By: #### R ENP, URTPRT, MG, UAMIC, URI ####[address] [place] [address] #### CBC, PTHNCA, VD25 ####[address] [address] WBC Auto #/vol (Bld) 10.3 10*3/uL Normal 3.5-11.3 [facility] Comment on above: Performed By: #### R ENP, URTPRT, MG, UAMIC, URI ####[address] [place] [address] #### CBC, PTHNCA, VD25 ####[address] [address] Magnesiumon 09-19-2017 Magnesium mass conc 2.0 mg/dL Normal 1.6-2.6 [facility] Comment on above: Result Comment: Perf ormed at [address] [place] [address] Performed By: #### R ENP, URTPRT, MG, UAMIC, URI ####[address] [place] [id number] #### CBC, PTHNCA, VD25 ####[address] [address] Protein,Tot,[place] Uron 2017 Creatinine mass conc 142.4 mg/dL Normal 28.0-217.0 [facility] Comment on above: Performed By: #### R ENP, URTPRT, MG, UAMIC, URI ####[address] [place], [place] [address] #### CBC, PTHNCA, VD25 ####[address] [address] Protein mass conc 7 mg/dL Normal [facility] Comment on above: Result Comment: No n ormal range established. Performed By: #### R ENP, URTPRT, MG, UAMIC, URI ####[address] [place] [address] #### CBC, PTHNCA, VD25 ####[address] [address] TP/Cre Ratio 0.05 Normal 0.00-0.20 [facility] Comment on above: Result Comment: Perf ormed at [address] [place] [address] Performed By: #### R ENP, URTPRT, MG, UAMIC, URI ####[address] [place] [address] #### CBC, PTHNCA, VD25 ####[address] [id number] Renal Function Panelon 09-19 (cont.) Normal [facility] Comment on above: Result Comment: Aver age GFR for 60-69 years old: 85 mL/min/1.73sq mChronic Kidney Disease: <60 mL/min/1.73sq mKidney failure: <15 mL/min/1.73sq meGFR calculated using average adult body mass. Additional eGFR calculator available at:http://www.[employer]/multiple_crcl_2011.htm Performed By: #### R ENP, URTPRT, MG, UAMIC, URI ####[address] [place] [address] #### CBC, PTHNCA, VD25 ####[address] [address] Albumin mass conc 4.0 g/dL Normal 3.5-5.2 [facility] Comment on above: Performed By: #### R ENP, URTPRT, MG, UAMIC, URI ####[address] [place] [address] #### CBC, PTHNCA, VD25 ####[address] [address] Anion gap 3 molar conc 11 mmol/L Normal 9-17 [facility] Comment on above: Performed By: #### R ENP, URTPRT, MG, UAMIC, URI ####[address] [place] [address] #### CBC, PTHNCA, VD25 ####[place] [address] [place] [address] BUN/CRE Ratio 25 High 9-20 [facility] Comment on above: Performed By: #### R ENP, URTPRT, MG, UAMIC, URI ####[address] [place] [address] #### CBC, PTHNCA, VD25 ####[address] [address] Calcium mass conc 9.3 mg/dL Normal 8.6-10.4 [facility] Comment on above: Performed By: #### R ENP, URTPRT, MG, UAMIC, URI ####[address] [place] [address] #### CBC, PTHNCA, VD25 ####[address] [address] Chloride molar conc 102 mmol/L Normal 98-107 [facility] Comment on above: Performed By: #### R ENP, URTPRT, MG, UAMIC, URI ####[address] [place] [address] #### CBC, PTHNCA, VD25 ####[address] [address] CO2 molar conc 27 mmol/L Normal 20-31 [facility] Comment on above: Performed By: #### R ENP, URTPRT, MG, UAMIC, URI ####[address] [place] [address] #### CBC, PTHNCA, VD25 ####[address] [address] Creatinine mass conc 1.00 mg/dL High 0.50-0.90 [facility] Comment on above: Performed By: #### R ENP, URTPRT, MG, UAMIC, URI ####[address] [place] [address] #### CBC, PTHNCA, VD25 ####[address] [address] GFR, Amer >60 Normal >60 [facility] Comment on above: Performed By: #### R ENP, URTPRT, MG, UAMIC, URI ####[address] [place] [address] #### CBC, PTHNCA, VD25 ####[address] [address] GFR,non Amer 55 mL/min Low >60 [facility] Comment on above: Performed By: #### R ENP, URTPRT, MG, UAMIC, URI ####[address] [place] [address] #### CBC, PTHNCA, VD25 ####[address] [address] Glucose mass conc 188 mg/dL High 70-99 [facility] Comment on above: Performed By: #### R ENP, URTPRT, MG, UAMIC, URI ####[address] [place] [address] #### CBC, PTHNCA, VD25 ####[address] [address] Phosphorus, Inorg. 3.3 mg/dL Normal 2.6-4.5 [facility] Comment on above: Performed By: #### R ENP, URTPRT, MG, UAMIC, URI ####[address] [place] [address] #### CBC, PTHNCA, VD25 ####[address] [address] Potassium molar conc 3.8 mmol/L Normal 3.7-5.3 [facility] Comment on above: Performed By: #### R ENP, URTPRT, MG, UAMIC, URI ####[address] , [place] [id number] #### CBC, PTHNCA, VD25 ####[address] [address] Sodium molar conc 140 mmol/L Normal 135-144 [facility] Comment on above: Performed By: #### R ENP, URTPRT, MG, UAMIC, URI ####[address] [place], [place] [address] #### CBC, PTHNCA, VD25 ####[address] [address] Staging: Normal [facility] Comment on above: Result Comment: Stag e 1: Some kidney damage normal GFRStage 2: Mild kidney damage GFR 60-89Stage 3: Moderate kidney damage GFR 30-59Stage 4: Severe kidney damage GFR 15-29Stage 5: Severe kidney damage GFR <15ESRD - chronic treatment by dialysis or transplantPerformed at [address] [place], [place] [id number] ([phone] Performed By: #### R ENP, URTPRT, MG, UAMIC, URI ####[address] [place] [address] #### CBC, PTHNCA, VD25 ####[place] [address] [place] [address] Urea nitrogen mass conc 25 mg/dL High 8-23 [facility] Comment on above: Performed By: #### R ENP, URTPRT, MG, UAMIC, URI ####[address] , [place] [id number] #### CBC, PTHNCA, VD25 ####[address] [address] Uric Acidon 09-19-2017 Urate mass conc 4.9 mg/dL Normal 2.4-5.7 [facility] Comment on above: Result Comment: Perf ormed at [address] [place] [address] Performed By: #### R ENP, URTPRT, MG, UAMIC, URI ####[address] , [place] [id number] #### CBC, PTHNCA, VD25 ####[address] [address] Urinalysis w/ Microon 2017 ----- Normal [facility] Comment on above: Performed By: #### R ENP, URTPRT, MG, UAMIC, URI ####[address] , [place] [id number] #### CBC, PTHNCA, VD25 ####[address] [address] Acetoacetic Acid,Ur Negative Normal NEG [facility] Comment on above: Performed By: #### R ENP, URTPRT, MG, UAMIC, URI ####[address] [place] [address] #### CBC, PTHNCA, VD25 ####[address] [address] Bacteria TRACE Abnormal NONE [facility] Comment on above: Performed By: #### R ENP, URTPRT, MG, UAMIC, URI ####[address] [place] [address] #### CBC, PTHNCA, VD25 ####[address] [address] Bilirubin, SemiQt,Ur Negative Normal NEG [facility] Comment on above: Performed By: #### R ENP, URTPRT, MG, UAMIC, URI ####[address] [place] [address] #### CBC, PTHNCA, VD25 ####[address] [address] Color YELLOW Normal YEL [facility] Comment on above: Performed By: #### R ENP, URTPRT, MG, UAMIC, URI ####[address] [place] [address] #### CBC, PTHNCA, VD25 ####[address] [address] Epithelial cells 0 TO 2 Normal 0-25 [facility] Comment on above: Performed By: #### R ENP, URTPRT, MG, UAMIC, URI ####[address] [place] [address] #### CBC, PTHNCA, VD25 ####[address] [address] Glucose,Semi-qnt,Ur Negative Normal NEG [facility] Comment on above: Performed By: #### R ENP, URTPRT, MG, UAMIC, URI ####[address] [place] [address] #### CBC, PTHNCA, VD25 ####[address] [address] Hemoglobin, Ur Negative Normal NEG [facility] Comment on above: Performed By: #### R ENP, URTPRT, MG, UAMIC, URI ####[address] [place] [address] #### CBC, PTHNCA, VD25 ####[address] [address] Leuckocyte Esterase Negative Normal NEG [facility] Comment on above: Performed By: #### R ENP, URTPRT, MG, UAMIC, URI ####[address] [place] [address] #### CBC, PTHNCA, VD25 ####[address] [address] Mucus Strands TRACE Abnormal NONE [facility] Comment on above: Result Comment: Perf ormed at [address] [place] [address] Performed By: #### R ENP, URTPRT, MG, UAMIC, URI ####[address] [place] [address] #### CBC, PTHNCA, VD25 ####[address] [address] Nitrite,Ur Negative Normal NEG [facility] Comment on above: Performed By: #### R ENP, URTPRT, MG, UAMIC, URI ####[address] [place] [address] #### CBC, PTHNCA, VD25 ####[address] [address] PH,Ur 6.0 Normal 5.0-9.0 [facility] Comment on above: Performed By: #### R ENP, URTPRT, MG, UAMIC, URI ####[address] [place] [address] #### CBC, PTHNCA, VD25 ####[address] [address] Protein mass conc Negative Normal NEG [facility] Comment on above: Performed By: #### R ENP, URTPRT, MG, UAMIC, URI ####[address] [place] [address] #### CBC, PTHNCA, VD25 ####[address] [address] RBC Test strip #/vol (U) 0 TO 2 Normal 0-2 [facility] Comment on above: Performed By: #### R ENP, URTPRT, MG, UAMIC, URI ####[address] [place] [address] #### CBC, PTHNCA, VD25 ####[address] [address] Spec. [place],Ur 1.025 High 1.010-1.020 [facility] Comment on above: Performed By: #### R ENP, URTPRT, MG, UAMIC, URI ####[address] [place] [address] #### CBC, PTHNCA, VD25 ####[address] [address] Turbidity CLEAR Normal CLEAR [facility] Comment on above: Performed By: #### R ENP, URTPRT, MG, UAMIC, URI ####[address] [place] [address] #### CBC, PTHNCA, VD25 ####[address] [address] Urine WBC's 0 TO 2 Normal 0-5 [facility] Comment on above: Performed By: #### R ENP, URTPRT, MG, UAMIC, URI ####[address] [id number] #### CBC, PTHNCA, VD25 ####[address] [address] Urobilinogen,Ur Normal Normal NORM [facility] Comment on above: Performed By: #### R ENP, URTPRT, MG, UAMIC, URI ####[address] [place] [address] #### CBC, PTHNCA, VD25 ####[address] [address] Amorphous Sediment NOT REPORTED Normal NONE [facility] Comment on above: Performed By: #### R ENP, URTPRT, MG, UAMIC, URI ####[address] [place] [id number] #### CBC, PTHNCA, VD25 ####[address] [address] Casts NOT REPORTED Normal [facility] Comment on above: Performed By: #### R ENP, URTPRT, MG, UAMIC, URI ####[address] [place] [address] #### CBC, PTHNCA, VD25 ####[address] [address] Comment NOT REPORTED Normal [facility] Comment on above: Performed By: #### R ENP, URTPRT, MG, UAMIC, URI ####[address] [place] [address] #### CBC, PTHNCA, VD25 ####[address] [address] Crystals NOT REPORTED Normal NONE [facility] Comment on above: Performed By: #### R ENP, URTPRT, MG, UAMIC, URI ####[address] [place] [address] #### CBC, PTHNCA, VD25 ####[place] [address] [place] [address] Epithelial, Renal NOT REPORTED Normal 0 [facility] Comment on above: Performed By: #### R ENP, URTPRT, MG, UAMIC, URI ####[address] [place] [address] #### CBC, PTHNCA, VD25 ####[address] [address] Other Observations NOT REPORTED [facility] Performed By: #### R ENP, URTPRT, MG, UAMIC, URI ####[address] [place] [address] #### CBC, PTHNCA, VD25 ####[address] [address] Trichomonas NOT REPORTED Normal NONE [facility] Comment on above: Performed By: #### R ENP, URTPRT, MG, UAMIC, URI ####[address] [place] [address] #### CBC, PTHNCA, VD25 ####[address] [address] Yeast NOT REPORTED Normal NONE [facility] Comment on above: Performed By: #### R ENP, URTPRT, MG, UAMIC, URI ####[address] [place] [address] #### CBC, PTHNCA, VD25 ####[place] [address] [place] [address] Vital Signs Date Time Vital Sign Value Performing Clinician Facility 09-28-2024 16:01-0400 Body height 163.83 cm Rajesh Mercer II Work Phone: [facility] 09-28-2024 16:01-0400 Body mass index (BMI) [Ratio] 46.5 kg/m2 Rajesh Mercer II Work Phone: [facility] 09-28-2024 16:01-0400 Body temperature 98 [degF] Rajesh Mercer II Work Phone: [facility] 09-28-2024 16:01-0400 Body weight 124.73 kg Rajesh Mercer II Work Phone: [facility] 09-28-2024 16:01-0400 Diastolic blood pressure 79 mm[Hg] Rajesh Mercer II Work Phone: [facility] 09-28-2024 16:01-0400 Heart rate 102 /min Rajesh Mercer II Work Phone: [facility] 09-28-2024 16:01-0400 Respiratory rate 20 /min Rajesh Mercer II Work Phone: [facility] 09-28-2024 16:01-0400 SaO2% (BldA) [Mass fraction] 96 % Rajesh Mercer II Work Phone: [facility] 09-28-2024 16:01-0400 Systolic blood pressure 146 mm[Hg] Rajesh Mercer II Work Phone: [facility] 09-01-2024 11:27-0400 Body height 160.7 cm Rajesh Mercer MD Work Phone: [facility] 09-01-2024 11:27-0400 Body mass index (BMI) [Ratio] 47.98 kg/m2 Rajesh Mercer MD Work Phone: [facility] 09-01-2024 11:27-0400 Body weight 123.83 kg Rajesh Mercer MD Work Phone: [facility] 09-01-2024 11:27-0400 Diastolic blood pressure 76 mm[Hg] Rajesh Mercer MD Work Phone: [facility] 09-01-2024 11:27-0400 Heart rate 76 /min Rajesh Mercer MD Work Phone: [facility] 09-01-2024 11:27-0400 SaO2% (BldA) [Mass fraction] 94 % Rajesh Mercer MD Work Phone: [facility] 09-01-2024 11:27-0400 Systolic blood pressure 130 mm[Hg] Rajesh Mercer MD Work Phone: [facility] 08-20-2024 11:37-0400 Body height 160.7 cm Rajesh Mercer MD Work Phone: [facility] 08-20-2024 11:37-0400 Diastolic blood pressure 72 mm[Hg] Rajesh Mercer MD Work Phone: [facility] 08-20-2024 11:37-0400 Heart rate 84 /min Rajesh Mercer MD Work Phone: [facility] 08-20-2024 11:37-0400 SaO2% (BldA) [Mass fraction] 95 % Rajesh Mercer MD Work Phone: [facility] 08-20-2024 11:37-0400 Systolic blood pressure 136 mm[Hg] Rajesh Mercer MD Work Phone: [facility] 08-18-2024 15:23-0400 Diastolic blood pressure 84 mm[Hg] JESSICA NKANSAH-AMANKRA [facility] 08-18-2024 15:23-0400 Heart rate 89 /min JESSICA NKANSAH-AMANKRA [facility] 08-18-2024 15:23-0400 Mean blood pressure 99 mm[Hg] JESSICA NKANSAH-AMANKRA [facility] 08-18-2024 15:23-0400 Systolic blood pressure 128 mm[Hg] JESSICA NKANSAH-AMANKRA [facility] 08-18-2024 15:22-0400 Heart rate 90 /min JESSICA SCOTTANSAH-AMANKRA [facility] 08-18-2024 15:22-0400 SaO2% (BldA) [Mass fraction] 98 % JESSICA NKANSAH-AMANKRA [facility] 08-18-2024 15:21-0400 Diastolic blood pressure 87 mm[Hg] JESSICA NKANSAH-AMANKRA [facility] 08-18-2024 15:21-0400 Mean blood pressure 111 mm[Hg] JESSICA NKANSAH-AMANKRA [facility] 08-18-2024 15:21-0400 Systolic blood pressure 159 mm[Hg] JESSICA SONIAANSAH-AMANKRA [facility] 06-18-2024 11:34-0500 Body height 160.7 cm Rajesh Mercer MD Work Phone: [facility] 06-18-2024 11:34-0500 Body mass index (BMI) [Ratio] 48.33 kg/m2 Rajesh Mercer MD Work Phone: [facility] 06-18-2024 11:34-0500 Body temperature 98.71 [degF] Rajesh Mercer MD Work Phone: [facility] 06-18-2024 11:34-0500 Body weight 124.74 kg Rajesh Mercer MD Work Phone: [facility] 06-18-2024 11:34-0500 Diastolic blood pressure 76 mm[Hg] Rajesh Mercer MD Work Phone: [facility] 06-18-2024 11:34-0500 Heart rate 83 /min Rajesh Mercer MD Work Phone: [facility] 06-18-2024 11:34-0500 SaO2% (BldA) [Mass fraction] 97 % Rajesh Mercer MD Work Phone: [facility] 06-18-2024 11:34-0500 Systolic blood pressure 128 mm[Hg] Rajesh Mercer MD Work Phone: [facility] 04-19-2024 15:50-0500 Body height 160.7 cm Rajesh Mercer MD Work Phone: [facility] 04-19-2024 15:50-0500 Body mass index (BMI) [Ratio] 48.86 kg/m2 Rajesh Mercer MD Work Phone: [facility] 04-19-2024 15:50-0500 Body weight 126.1 kg Rajesh Mercer MD Work Phone: [facility] 04-19-2024 15:50-0500 Diastolic blood pressure 70 mm[Hg] Rajesh Mercer MD Work Phone: [facility] 04-19-2024 15:50-0500 Heart rate 90 /min Rajesh Mercer MD Work Phone: [facility] 04-19-2024 15:50-0500 SaO2% (BldA) [Mass fraction] 96 % Rajesh Mercer MD Work Phone: [facility] 04-19-2024 15:50-0500 Systolic blood pressure 122 mm[Hg] Rajesh Mercer MD Work Phone: [facility] 04-13-2024 15:57-0500 Body height 163.83 cm Rajesh Mercer II Work Phone: [facility] 04-13-2024 15:57-0500 Body mass index (BMI) [Ratio] 46.8 kg/m2 Rajesh Mercer II Work Phone: [facility] 04-13-2024 15:57-0500 Body temperature 97 [degF] Rajesh Mercer II Work Phone: [facility] 04-13-2024 15:57-0500 Body weight 125.75 kg Rajesh Mercer II Work Phone: [facility] 04-13-2024 15:57-0500 Diastolic blood pressure 73 mm[Hg] Rajesh Mercer II Work Phone: [facility] 04-13-2024 15:57-0500 Heart rate 88 /min Rajesh Mercer II Work Phone: [facility] 04-13-2024 15:57-0500 Respiratory rate 20 /min Rajesh Mercer II Work Phone: [facility] 04-13-2024 15:57-0500 SaO2% (BldA) [Mass fraction] 94 % Rajesh Mercer II Work Phone: [facility] 04-13-2024 15:57-0500 Systolic blood pressure 126 mm[Hg] Rajesh Mercer II Work Phone: [facility] 02-26-2024 12:05-0400 Body mass index (BMI) [Ratio] 48.22 kg/m2 Gina Bustillo MD Work Phone: [facility] 02-26-2024 12:05-0400 Body weight 127.42 kg Gina Bustillo MD Work Phone: [facility] 02-26-2024 12:05-0400 Diastolic blood pressure 81 mm[Hg] Gina Bustillo MD Work Phone: [facility] 02-26-2024 12:05-0400 Heart rate 81 /min Gina Bustillo MD Work Phone: [facility] 02-26-2024 12:05-0400 Systolic blood pressure 118 mm[Hg] Gina Bustillo MD Work Phone: [facility] 01-16-2024 12:43-0400 Body height 160.7 cm Gina MCGREGOR Work Phone: [facility] 01-16-2024 12:43-0400 Body mass index (BMI) [Ratio] 50.47 kg/m2 Gina MCGREGOR Work Phone: [facility] 01-16-2024 12:43-0400 Body weight 130.27 kg Gina Hemmer PA Work Phone: [facility] 01-16-2024 12:43-0400 Diastolic blood pressure 76 mm[Hg] Gina Hemmer PA Work Phone: [facility] 01-16-2024 12:43-0400 Heart rate 89 /min Gina Hemmer PA Work Phone: [facility] 01-16-2024 12:43-0400 Respiratory rate 16 /min Gina Hemmer PA Work Phone: [facility] 01-16-2024 12:43-0400 SaO2% (BldA) [Mass fraction] 96 % Gina Hemmer PA Work Phone: [facility] 01-16-2024 12:43-0400 Systolic blood pressure 124 mm[Hg] Gina Hemmer PA Work Phone: [facility] 11-25-2023 11:52-0400 Body mass index (BMI) [Ratio] 49.56 kg/m2 Maggi Fabian CUSTOMER SERVICE TELLER-DIRECTOR OF MARKETING AND PROMOTIONS Work Phone: [facility] 11-25-2023 11:52-0400 Body weight 130.95 kg Maggi Fabian CUSTOMER SERVICE TELLER-DIRECTOR OF MARKETING AND PROMOTIONS Work Phone: [facility] 11-25-2023 11:52-0400 Diastolic blood pressure 72 mm[Hg] Maggi Fabian CUSTOMER SERVICE TELLER-DIRECTOR OF MARKETING AND PROMOTIONS Work Phone: [facility] 11-25-2023 11:52-0400 Heart rate 88 /min Maggi Fabian CUSTOMER SERVICE TELLER-DIRECTOR OF MARKETING AND PROMOTIONS Work Phone: [facility] 11-25-2023 11:52-0400 Systolic blood pressure 126 mm[Hg] Maggi Fabian CUSTOMER SERVICE TELLER-DIRECTOR OF MARKETING AND PROMOTIONS Work Phone: [facility] 11-13-2023 15:48-0400 Body height 163.83 cm II Rajesh Mercer Work Phone: [facility] 11-13-2023 15:48-0400 Body mass index (BMI) [Ratio] 48.8 kg/m2 II Rajesh Mercer Work Phone: [facility] 11-13-2023 15:48-0400 Body temperature 97.3 [degF] II Rajesh Mercer Work Phone: [facility] 11-13-2023 15:48-0400 Body weight 131.08 kg II Rajesh Mercer Work Phone: [facility] 11-13-2023 15:48-0400 Diastolic blood pressure 78 mm[Hg] II Rajesh Mercer Work Phone: [facility] 11-13-2023 15:48-0400 Heart rate 88 /min II Rajesh Mercer Work Phone: [facility] 11-13-2023 15:48-0400 Respiratory rate 20 /min II Rajesh Mercer Work Phone: [facility] 11-13-2023 15:48-0400 SaO2% (BldA) [Mass fraction] 95 % II Rajesh Mercer Work Phone: [facility] 11-13-2023 15:48-0400 Systolic blood pressure 148 mm[Hg] II Rajesh Mercer Work Phone: [facility] 08-08-2023 13:25-0400 Body mass index (BMI) [Ratio] 49.88 kg/m2 Maggi Hughesy CUSTOMER SERVICE TELLER-DIRECTOR OF MARKETING AND PROMOTIONS Work Phone: [facility] 08-08-2023 13:25-0400 Body weight 131.81 kg Maggimarga Hughesy CUSTOMER SERVICE TELLER-DIRECTOR OF MARKETING AND PROMOTIONS Work Phone: [facility] 08-08-2023 13:25-0400 Diastolic blood pressure 82 mm[Hg] Maggi Fabian CUSTOMER SERVICE TELLER-DIRECTOR OF MARKETING AND PROMOTIONS Work Phone[facility] 08-08-2023 13:25-0400 Heart rate 82 /min Maggi Fabian CUSTOMER SERVICE TELLER-DIRECTOR OF MARKETING AND PROMOTIONS Work [facility]: [facility] 08-08-2023 13:25-0400 Systolic blood pressure 142 mm[Hg] Maggi Pena CUSTOMER SERVICE TELLER-DIRECTOR OF MARKETING AND PROMOTIONS Work Phone: [employer] 07-21-2023 15:56-0400 Body height 163.83 cm II Rajesh Mercer Work Phone: [facility] 07-21-2023 15:56-0400 Body mass index (BMI) [Ratio] 48.9 kg/m2 II Rajesh Mercer Work Phone: [facility] 07-21-2023 15:56-0400 Body temperature 97.5 [degF] II Rajesh Mercer Work Phone: [facility] 07-21-2023 15:56-0400 Body weight 131.25 kg II Rajesh Mercer Work Phone: [facility] 07-21-2023 15:56-0400 Diastolic blood pressure 78 mm[Hg] II Rajesh Mercer Work Phone: [facility] 07-21-2023 15:56-0400 Heart rate 81 /min II Rajesh Mercer Work Phone: [facility] 07-21-2023 15:56-0400 Respiratory rate 20 /min II Rajesh Mercer Work Phone: [facility] 07-21-2023 15:56-0400 SaO2% (BldA) [Mass fraction] 94 % II Rajesh Mercer Work Phone: [facility] 07-21-2023 15:56-0400 Systolic blood pressure 142 mm[Hg] II Rajesh Mercer Work Phone: [facility] 03-04-2023 15:15-0400 Body height 163.83 cm Qamar Rowan Other [employer] Other 03-04-2023 15:15-0400 Body mass index (BMI) [Ratio] 49.34 kg/m2 Qamar Rowan Other [employer] Other 03-04-2023 15:15-0400 Body temperature 98 [degF] Hectorchazer Harpal Other [employer] Other 03-04-2023 15:15-0400 Body weight 132.45 kg Christchazer Harpal Other [employer] Other 03-04-2023 15:15-0400 Diastolic blood pressure 78 mm[Hg] Mehraner Harpal Other [employer] Other 03-04-2023 15:15-0400 Respiratory rate 20 /min Mehraner Harpal Other [employer] Other 03-04-2023 15:15-0400 SaO2% (BldA) [Mass fraction] 96 % Mehraner Harpal Other [employer] Other 03-04-2023 15:15-0400 Systolic blood pressure 148 mm[Hg] Hectorchazer Harpal Other [employer] Other 11-27-2022 16:00-0400 Body height 163.83 cm Dilan Sergio Other [employer] Other 11-27-2022 16:00-0400 Body mass index (BMI) [Ratio] 49.58 kg/m2 Dilan Sergio Other [employer] Other 11-27-2022 16:00-0400 Body temperature 97.2 [degF] Dilan Sergio Other [employer] Other 11-27-2022 16:00-0400 Body weight 133.09 kg Dilan Sergio Other [employer] Other 11-27-2022 16:00-0400 Diastolic blood pressure 46 mm[Hg] Dilan Sergio Other [employer] Other 11-27-2022 16:00-0400 Respiratory rate 20 /min Dilan Sergio Other [employer] Other 11-27-2022 16:00-0400 SaO2% (BldA) [Mass fraction] 95 % Dilan Sergio Other [employer] Other 11-27-2022 16:00-0400 Systolic blood pressure 149 mm[Hg] Dilan Sergio Other [employer] Other 09-03-2022 16:15-0400 Body height 163.83 cm Mehraner Harpal Other [employer] Other 09-03-2022 16:15-0400 Body mass index (BMI) [Ratio] 49 kg/m2 Mehraner Harpal Other [employer] Other 09-03-2022 16:15-0400 Body temperature 97.2 [degF] Mehraner Harpal Other [employer] Other 09-03-2022 16:15-0400 Body weight 131.54 kg Mehraner Harpal Other [employer] Other 09-03-2022 16:15-0400 Diastolic blood pressure 73 mm[Hg] Mehraner Harpal Other [employer] Other 09-03-2022 16:15-0400 Respiratory rate 20 /min Qamar Rowan Other [employer] Other 09-03-2022 16:15-0400 SaO2% (BldA) [Mass fraction] 96 % Qamar Rowan Other [employer] Other 09-03-2022 16:15-0400 Systolic blood pressure 123 mm[Hg] Qamar Rowan Other [employer] Other 08-29-2022 14:40-0400 Body height 163.83 cm Dilan Sergio Other [employer] Other 08-29-2022 14:40-0400 Body mass index (BMI) [Ratio] 50.22 kg/m2 Dilan Sergio Other [employer] Other 08-29-2022 14:40-0400 Body temperature 97.6 [degF] Dilan Sergio Other [employer] Other 08-29-2022 14:40-0400 Body weight 134.81 kg Dilan Sergio Other [employer] Other 08-29-2022 14:40-0400 Diastolic blood pressure 72 mm[Hg] Dilan Sergio Other [employer] Other 08-29-2022 14:40-0400 Respiratory rate 20 /min Dilan Sergio Other [employer] Other 08-29-2022 14:40-0400 SaO2% (BldA) [Mass fraction] 91 % Dilan Sergio Other [employer] Other 08-29-2022 14:40-0400 Systolic blood pressure 140 mm[Hg] Dilan Sergio Other [employer] Other 07-15-2022 16:00-0400 Body height 163.83 cm Dilan Sergio Other [employer] Other 07-15-2022 16:00-0400 Body mass index (BMI) [Ratio] 49.82 kg/m2 Dilan Sergio Other [employer] Other 07-15-2022 16:00-0400 Body temperature 97.3 [degF] Dilan Sergio Other [employer] Other 07-15-2022 16:00-0400 Body weight 133.72 kg Dilan Sergio Other [employer] Other 07-15-2022 16:00-0400 Diastolic blood pressure 60 mm[Hg] Dilan Sergio Other [employer] Other 07-15-2022 16:00-0400 Respiratory rate 20 /min Dilan Sergio Other [employer] Other 07-15-2022 16:00-0400 SaO2% (BldA) [Mass fraction] 96 % Dilan Sergio Other [employer] Other 07-15-2022 16:00-0400 Systolic blood pressure 130 mm[Hg] Dilan Sergio Other [employer] Other 03-04-2022 14:30-0400 Body height 163.83 cm Qamar Pandano Other [employer] Other 03-04-2022 14:30-0400 Body mass index (BMI) [Ratio] 49.68 kg/m2 Qamar Foremandano Other [employer] Other 03-04-2022 14:30-0400 Body temperature 97.3 [degF] Hectorjaimie Pandano Other [employer] Other 03-04-2022 14:30-0400 Body weight 133.36 kg Qamar Foremandano Other [employer] Other 03-04-2022 14:30-0400 Diastolic blood pressure 84 mm[Hg] Mehranmarissa ForemanHarpal Other [employer] Other 03-04-2022 14:30-0400 Respiratory rate 20 /min Qamar Pandano Other [employer] Other 03-04-2022 14:30-0400 SaO2% (BldA) [Mass fraction] 96 % Qamar Pandano Other [employer] Other 03-04-2022 14:30-0400 Systolic blood pressure 156 mm[Hg] Mehraner Harpal Other [employer] Other 02-21-2022 16:20-0400 Body height 163.83 cm Dilan Sergio Other [employer] Other 02-21-2022 16:20-0400 Body mass index (BMI) [Ratio] 51.07 kg/m2 Dilan Sergio Other [employer] Other 02-21-2022 16:20-0400 Body temperature 97.1 [degF] Dilan Sergio Other [employer] Other 02-21-2022 16:20-0400 Body weight 137.08 kg Dilan Sergio Other [employer] Other 02-21-2022 16:20-0400 Diastolic blood pressure 81 mm[Hg] Dilan Sergio Other [employer] Other 02-21-2022 16:20-0400 Respiratory rate 20 /min Dilan Sergio Other [employer] Other 02-21-2022 16:20-0400 SaO2% (BldA) [Mass fraction] 96 % Dilan Sergio Other [employer] Other 02-21-2022 16:20-0400 Systolic blood pressure 138 mm[Hg] Dilan Sergio Other [employer] Other 10-23-2021 17:20-0400 Body height 163.83 cm Dilan Sergio Other [employer] Other 10-23-2021 17:20-0400 Body mass index (BMI) [Ratio] 50.12 kg/m2 Dilan Sergio Other [employer] Other 10-23-2021 17:20-0400 Body temperature 97.2 [degF] Dilan Sergio Other [employer] Other 10-23-2021 17:20-0400 Body weight 134.54 kg Dilan Sergio Other [employer] Other 10-23-2021 17:20-0400 Diastolic blood pressure 84 mm[Hg] Dilan Sergio Other [employer] Other 10-23-2021 17:20-0400 Respiratory rate 20 /min Dilan Sergio Other [employer] Other 10-23-2021 17:20-0400 SaO2% (BldA) [Mass fraction] 94 % Dilan Sergio Other [employer] Other 10-23-2021 17:20-0400 Systolic blood pressure 171 mm[Hg] Dilan Sergio Other [employer] Other 10-02-2021 15:15-0400 Body height 163.83 cm Qamar Rowan Other [employer] Other 10-02-2021 15:15-0400 Body mass index (BMI) [Ratio] 49.51 kg/m2 Qamar Rowan Other [employer] Other 10-02-2021 15:15-0400 Body temperature 96.5 [degF] Qamar Rowan Other [employer] Other 10-02-2021 15:15-0400 Body weight 132.9 kg Qamar Pandano Other [employer] Other 10-02-2021 15:15-0400 Diastolic blood pressure 89 mm[Hg] Qamar Pandano Other [employer] Other 10-02-2021 15:15-0400 Respiratory rate 20 /min Qamar Rowan Other [employer] Other 10-02-2021 15:15-0400 SaO2% (BldA) [Mass fraction] 95 % Qamar Rowan Other [employer] Other 10-02-2021 15:15-0400 Systolic blood pressure 154 mm[Hg] aQmar Rowan Other [employer] Other 04-18-2021 17:20-0500 Body height 163.83 cm Dilan Sergio Other [employer] Other 04-18-2021 17:20-0500 Body mass index (BMI) [Ratio] 49.85 kg/m2 Dilan Sergio Other [employer] Other 04-18-2021 17:20-0500 Body temperature 97 [degF] Dilan Sergio Other [employer] Other 04-18-2021 17:20-0500 Body weight 133.81 kg Dilan Sergio Other [employer] Other 04-18-2021 17:20-0500 Diastolic blood pressure 70 mm[Hg] Dilan Sergio Other [employer] Other 04-18-2021 17:20-0500 Respiratory rate 24 /min Dilan Sergio Other [employer] Other 04-18-2021 17:20-0500 SaO2% (BldA) [Mass fraction] 97 % Dilan Sergio Other [employer] Other 04-18-2021 17:20-0500 Systolic blood pressure 130 mm[Hg] Dilan Nguyễn Other [employer] Other 04-02-2021 15:30-0500 Body height 163.83 cm Christchazer Harpal Other [employer] Other 04-02-2021 15:30-0500 Body mass index (BMI) [Ratio] 49.51 kg/m2 Christopher Harpal Other [employer] Other 04-02-2021 15:30-0500 Body temperature 97.1 [degF] Christchazer Harpal Other [employer] Other 04-02-2021 15:30-0500 Body weight 132.9 kg Christopher Harpal Other [employer] Other 04-02-2021 15:30-0500 Diastolic blood pressure 88 mm[Hg] Christchazer Harpal Other [employer] Other 04-02-2021 15:30-0500 Respiratory rate 20 /min Christchazer Harpal Other [employer] Other 04-02-2021 15:30-0500 SaO2% (BldA) [Mass fraction] 97 % Christopher Harpal Other [employer] Other 04-02-2021 15:30-0500 Systolic blood pressure 172 mm[Hg] Christchazer Harpal Other [employer] Other 11-27-2020 14:25-0400 Body height 162.79 cm No PCP None [facility] Work Phone: 11-27-2020 14:25-0400 Body mass index (BMI) [Ratio] 50.57 kg/m2 No PCP None [facility] Work Phone: 11-27-2020 14:25-0400 Body surface area Derived from formula 2.31 m2 No PCP None [facility] Work Phone: 11-27-2020 14:25-0400 Body temperature 36.4 [degF] No PCP None [facility] Work Phone: 11-27-2020 14:25-0400 Body weight 134.01 kg No PCP None [facility] Work Phone: 11-27-2020 14:25-0400 Diastolic blood pressure 79 mm[Hg] No PCP None [facility] Work Phone: 11-27-2020 14:25-0400 Heart rate 75 /min No PCP None [facility] Work Phone: 11-27-2020 14:25-0400 Respiratory rate 16 /min No PCP None [facility] Work Phone: 11-27-2020 14:25-0400 SaO2% (BldA) [Mass fraction] 96 % No PCP None [facility] Work Phone: 11-27-2020 14:25-0400 Systolic blood pressure 166 mm[Hg] No PCP None [facility] Work Phone: 11-27-2020 14:25-0400 4 1 No PCP None [facility] Work Phone: Comment on above: [employer] 1950 23:00-0500 >na< Reyna Preston Dept. of Dermatology Encounters Encounter Date Encounter Type Care Provider Facility Start: 10-08-2024 End: 10-08-2024 Refill Maggi Pena APRN-DIRECTOR OF MARKETING AND PROMOTIONS Work Phone: [facility] Comment on above: Type 2 diabetes gauri itus with hyperglycemia, with long-term current use of insulin ([facility] Start: 10-04-2024 End: 10-04-2024 Patient encounter procedure Chanell Tatum MD Work Phone: Urology Comment on above: Calculus of kidney ( Primary Dx) Start: 10-04-2024 End: 10-04-2024 ambulatory [facility] Facility:[facility] Start: 09-28-2024 End: 09-28-2024 ambulatory Rajesh Mercer II Work Phone: [facility] Work Phone: Start: 09-28-2024 End: 09-28-2024 Patient encounter procedure Rajesh Mercer II Work Phone: [facility] Work Phone: Start: 09-22-2024 Office outpatient vi sit 25 minutes Dez Gallagher Jr [facility] [place] Start: 09-22-2024 ambulatory Dez Gallagher Jr [facility] [place] Start: 09-19-2024 End: 09-19-2024 Telephone encounter Chanell Tatum MD Work Phone: Urology Start: 09-16-2024 ambulatory [facility] Facility:[facility] Start: 09-16-2024 End: 09-16-2024 Subsequent hospital visit by physician Arrival Time Radiology Work Phone: Radiology [facility] Comment on above: Calculus of kidney [ N20.0] Start: 09-15-2024 End: 09-15-2024 Patient encounter procedure Kailee Nova DPM Work Phone: [facility] Comment on above: Onychomycosis (Prima ry Dx); Pain in both feet; Type 2 diabetes mellitus without complication, without long-term current use of insulin Start: 09-15-2024 End: 09-15-2024 ambulatory KAILEE NOVA Not Available Start: 09-15-2024 End: 09-15-2024 Bamboo flowsheet Kailee Nova DPM Work Phone: [facility] Start: 09-15-2024 End: 09-15-2024 Bamboo flowsheet Kailee Nova DPM Work Phone: [facility] Start: 09-13-2024 End: 09-13-2024 Patient encounter procedure Chanell Tatum MD Work Phone: Urology Comment on above: Calculus of kidney ( Primary Dx); Calculus of bladder Start: 09-13-2024 End: 09-13-2024 ambulatory CHANELL RC Facility:[facility] Start: 09-07-2024 End: 09-07-2024 Telephone encounter Chanell Tatum MD Work Phone: Urology Start: 09-06-2024 End: 09-06-2024 [facility] Start: 09-01-2024 End: 09-01-2024 Bamboo flowsheet Rajesh Mercer MD Work Phone: [facility] Start: 09-01-2024 End: 09-01-2024 Bamboo flowsheet Rajesh Mercer MD Work Phone: [facility] Start: 09-01-2024 End: 09-01-2024 Office outpatient visit 25 minutes Rajesh Mercer MD Work Phone: [facility] Comment on above: Preoperative clearan ce (Primary Dx); Preoperative cardiovascular examination; Chronic obstructive pulmonary disease, unspecified COPD type (CMS/HCC); Abnormal EKG Start: 09-01-2024 End: 09-01-2024 Patient encounter status Rajesh Mercer MD Work Phone: [facility] Start: 09-01-2024 End: 09-01-2024 Preoperative state Rajesh Mercer MD Work Phone: [facility] Work Phone: Start: 09-01-2024 End: 09-01-2024 ambulatory RAJESH MERCER Not Available Start: 08-30-2024 Non-patient / Non-visit Rajesh Mercer II Work Phone: [facility] Work Phone: Start: 08-27-2024 End: 08-27-2024 External Result Encounter Rajesh Mercer MD Work Phone: [facility] Unsolicited Start: 08-27-2024 End: 08-27-2024 External Result Encounter Rajesh Mercer MD Work Phone: [facility] Unsolicited Start: 08-27-2024 End: 08-27-2024 Patient encounter procedure Rajesh Mercer II Work Phone: [facility] Work Phone: Start: 08-27-2024 End: 08-27-2024 ambulatory Rajesh Mercer II Work Phone: [facility] Work Phone: Start: 08-20-2024 End: 08-20-2024 Office outpatient visit 40 minutes Rajesh Mercer MD Work Phone: [facility] Comment on above: Preoperative clearan ce (Primary Dx); Preoperative cardiovascular examination; Acute cystitis without hematuria; History of pulmonary embolus (PE); Chronic obstructive pulmonary disease, unspecified COPD type (CMS/HCC); Hypercoagulable state (CMS/HCC); Shortness of breath; Abnormal EKG; Type 2 diabetes mellitus with other specified complication, with long-term current use of insulin Start: 08-20-2024 End: 08-20-2024 Patient encounter status Rajesh Mercer MD Work Phone: [facility] Start: 08-20-2024 End: 08-20-2024 Preoperative state Rajesh Mercer MD Work Phone: [facility] Start: 08-20-2024 End: 08-20-2024 ambulatory RAJESH MERCER Not Available Start: 08-18-2024 End: 08-18-2024 ambulatory JESSICA ELIAS-ANN [facility] Start: 08-18-2024 End: 08-18-2024 Patient encounter procedure JESSICA BRISCOE [facility] Start: 07-16-2024 End: 07-16-2024 ambulatory RAJESH MERCER Not Available Start: 07-09-2024 End: 09-03-2024 Pre-admission assessment JESSICA BRISCOE [facility] Start: 07-09-2024 End: 07-09-2024 ambulatory JESSICA ELIAS-ANN Facility:[facility] Start: 07-08-2024 ambulatory JESSICA ELIAS-ANN Facility: [facility] Start: 2024 End: 07-03-2024 Non-patient / Non-visit Rajesh Mercer II Work Phone: [facility] Work Phone: Start: 06-30-2024 End: 06-30-2024 ambulatory Rajesh Mercer II Work Phone: [facility] Work Phone: Start: 06-30-2024 End: 06-30-2024 Departed Referred Rajesh Mercer II Work Phone: [facility] Start: 06-30-2024 End: 2024 Clinisync Result Encounter Generic External Data Provider [facility] Unsolicited Start: 06-30-2024 End: 2024 Clinisync Result Encounter Generic External Data Provider [facility] Unsolicited Start: 06-18-2024 End: 06-18-2024 Bamboo flowsheet Rajesh [...] ambulatory RAJESH MERCER Not Available Start: 05-31-2024 Non-patient / Non-visit Rajesh Mercer II Work Phone: [facility] Work Phone: Start: 05-31-2024 End: 06-02-2024 Clinisync Result Encounter Generic External Data Provider [facility] Unsolicited Start: 05-31-2024 End: 06-02-2024 Clinisync Result Encounter Generic External Data Provider [facility] Unsolicited Start: 05-21-2024 ambulatory Dez Gallagher Jr [facility] [place] Start: 04-22-2024 End: 04-22-2024 Office outpatient visit 10 minutes Kailee LAMM Work Phone: [facility] Comment on above: Ingrown toenail ([facility] Dx); Left foot pain Start: 04-22-2024 End: 04-22-2024 ambulatory KAILEE NOVA Not Available Start: 04-22-2024 End: 04-22-2024 Bamboo flowsheet Kailee Nova DPM Work Phone: [facility] Start: 04-22-2024 End: 04-22-2024 Bamboo flowsheet Kailee Nova DPM Work Phone: [facility] Start: 04-19-2024 End: 04-19-2024 Assay of hemosiderin, quant Rajesh Mercer MD Work Phone: [facility] Start: 04-19-2024 End: 04-19-2024 Patient encounter [...] [facility] Start: 04-13-2024 End: 04-13-2024 Patient encounter procedure Rajesh Mercer II Work Phone: [facility] Work Phone: Start: 04-13-2024 End: 04-13-2024 Orders Only Gina Bustillo MD Work Phone: [facility] Comment on above: Tinea cruris (Primar y Dx) Start: 04-12-2024 End: 04-12-2024 Patient encounter procedure Rajesh Mercer II Work Phone: [facility] [place] Work Phone: Start: 04-12-2024 End: 04-12-2024 ambulatory Rajesh Mercer Facility:[facility] Start: 03-25-2024 End: 03-25-2024 Office outpatient visit 15 minutes Kailee Nova DPM Work Phone: [facility] Comment on above: Ingrown toenail (Shy nimco Dx); Left foot pain; Onychomycosis; Type 2 diabetes mellitus without complication, without long-term current use of insulin (CMS/HCC) Start: 03-25-2024 End: 03-25-2024 ambulatory KAILEE NOVA Not Available Start: 03-25-2024 End: 03-25-2024 Bamboo flowsheet Kailee Nova DPM Work Phone: [facility] Start: 03-25-2024 End: 03-25-2024 Bamboo flowsheet Kailee Nova DPM Work Phone: [facility] Start: 03-03-2024 ambulatory Dez Gallagher [facility] [place] Start: 03-03-2024 End: 03-03-2024 Refill Gina Bustillo MD Work Phone: [facility] Comment on above: Type 2 diabetes gauri itus with hypoglycemia without coma, without long-term current use of insulin ([facility]) Start: 03-01-2024 End: 03-01-2024 Refill Jemima Friday TUGBOAT OPERATOR Work Phone: [facility] Comment on above: Primary osteoarthrit is of both knees (Primary Dx) Start: 02-26-2024 End: 02-26-2024 Office outpatient visit 25 minutes Gina Bustillo MD Work Phone: [facility] Comment on above: Type 2 diabetes gauri itus with hypoglycemia without coma, without long-term current use of insulin ([facility]) (Primary Dx); Primary hypertension; Mixed hyperlipidemia Start: 02-26-2024 End: 02-26-2024 [facility] Start: 02-24-2024 End: 02-24-2024 Office outpatient visit 10 minutes Kailee Nova DPM Work Phone: [facility] Comment on above: Ingrown toenail (Shy nimco Dx); Left foot pain Start: 02-24-2024 End: 02-24-2024 ambulatory KAILEE NOVA Not Available Start: 01-29-2024 End: 01-29-2024 Refill Gina MCGREGOR Work Phone: [facility] Comment on above: Primary osteoarthrit is of both knees Start: 01-26-2024 End: 01-26-2024 Office outpatient visit 10 minutes Kailee Nova DPM Work Phone: [facility] Comment on above: Ingrown toenail (Shy nimco Dx); Left foot pain Start: 01-26-2024 End: 01-26-2024 ambulatory KAILEE NOVA Not Available Start: 01-26-2024 End: 01-26-2024 Bamboo flowsheet Kailee Nova DPM Work Phone: [facility] Start: 01-26-2024 End: 01-26-2024 Bamboo flowsheet Kailee Nova DPM Work Phone: [facility] Start: 01-16-2024 End: 01-16-2024 Bamboo [...] eye (CMS/HCC) Start: 01-16-2024 End: 01-16-2024 ambulatory GINAYOSHI WHITESIDE Not Available Start: 12-31-2023 ambulatory Dez Gallagher Jr [facility] Start: 12-08-2023 End: 12-08-2023 ambulatory KAILEE NOVA Not Available Start: 11-25-2023 End: 11-25-2023 Office outpatient visit 25 minutes Maggi Pena CUSTOMER SERVICE TELLER-DIRECTOR OF MARKETING AND PROMOTIONS Work Phone: [facility] Comment on above: Type 2 diabetes gauri itus with hyperglycemia, with long-term current use of insulin ([facility]) (Primary Dx); Primary hypertension; Mixed hyperlipidemia Start: 11-25-2023 End: 11-25-2023 ambulatory [facility] Start: 11-13-2023 End: 11-13-2023 ambulatory II Rajesh Mercer Work Phone: [facility] Work Phone: Start: 11-13-2023 End: 11-13-2023 Patient encounter procedure II Rajesh Mercer Work Phone: [facility] Work Phone: Start: 11-10-2023 End: 11-10-2023 Patient encounter procedure II Rajesh Mercer Work Phone: [facility] [place] Work Phone: Start: 11-10-2023 End: 11-10-2023 ambulatory Rajesh Mercer Facility:[facility] Start: 11-08-2023 End: 11-10-2023 Zane Bustillo MD Work Phone: [facility] Comment on above: Type 2 diabetes gauri itus with hyperglycemia, with long-term current use of insulin ([facility]) Start: 10-27-2023 End: 10-27-2023 Telephone encounter Maggi Pena CUSTOMER SERVICE TELLER-DIRECTOR OF MARKETING AND PROMOTIONS Work Phone: [facility] Start: 10-22-2023 End: 10-22-2023 ambulatory KAILEE NOVA Not Available Start: 10-16-2023 End: 10-16-2023 Refill Gina Bustillo MD Work Phone: [facility] Comment on above: Type 2 diabetes gauri itus with hyperglycemia, with long-term current use of insulin ([facility]) Start: 09-25-2023 End: 09-25-2023 Refill Maggi Pena CUSTOMER SERVICE TELLER-DIRECTOR OF MARKETING AND PROMOTIONS Work Phone: [facility] Comment on above: Type 2 diabetes gauri itus with hyperglycemia, with long-term current use of insulin ([facility]) Start: 09-03-2023 End: 09-03-2023 ambulatory [facility] Ambulatory Start: 09-03-2023 End: 09-03-2023 Office outpatient visit 25 minutes Reyna Preston MD Work Phone: [facility] Comment on above: Fissure in skin (Shy rinaldi Dx); Encounter for screening for malignant neoplasm of skin; Personal history of malignant melanoma of skin; Family history of melanoma; Hemangioma of skin; Melanocytic nevus, unspecified location; Lentigo; Seborrheic keratosis; Scar conditions and fibrosis of skin Start: 08-21-2023 End: 08-21-2023 Refill Gina Bustillo MD Work Phone: [facility] Comment on above: Type 2 diabetes gauri itus with hyperglycemia, with long-term current use of insulin ([facility]) Start: 08-08-2023 End: 08-08-2023 ambulatory MAGGI PENA [facility] Start: 08-08-2023 End: 08-08-2023 Office outpatient visit 25 minutes Maggi Pena CUSTOMER SERVICE TELLER-DIRECTOR OF MARKETING AND PROMOTIONS Work Phone: [facility] Comment on above: Type 2 diabetes gauri itus with hyperglycemia, with long-term current use of insulin ([facility]) (Primary Dx); Primary hypertension Start: 07-26-2023 Refill Gina rodarte MD Work Phone: [facility] Comment on above: Type 2 diabetes gauri itus with hyperglycemia, with long-term current use of insulin ([facility]) Start: 07-21-2023 End: 07-21-2023 ambulatory II Rajesh Mercer Work Phone: [facility] Work Phone: Start: 07-21-2023 End: 07-21-2023 Patient encounter procedure II Rajesh Mercer Work Phone: [facility] [place] Work Phone: Start: 07-21-2023 End: 07-21-2023 ambulatory II Rajesh Mercer Work Phone: [facility] Work Phone: Start: 07-21-2023 End: 07-21-2023 Patient encounter procedure II Rajesh Mercer Work Phone: [facility] Work Phone: Start: 07-18-2023 End: 07-18-2023 ambulatory II Rajesh Mercer Work Phone: [facility] Work Phone: Start: 07-18-2023 End: 07-18-2023 Patient encounter procedure II Rajesh Mercer Work Phone: [facility] [place] Work Phone: Start: 2023 Refill Gina rodarte MD Work Phone: [facility] Comment on above: Type 2 diabetes gauri itus with hypoglycemia without coma, without long-term current use of insulin ([facility]) (Primary Dx) Start: 06-29-2023 Refill Maggi Pena CUSTOMER SERVICE TELLER-DIRECTOR OF MARKETING AND PROMOTIONS Work Phone: [facility] Comment on above: Type 2 diabetes gauri itus with hyperglycemia, with long-term current use of insulin ([facility]) Start: 03-04-2023 End: 03-04-2023 ambulatory Qamar Rowan Other [employer] Other Start: 03-04-2023 Office outpatient vi sit 15 minutes Qamar Rowan [facility] Start: 03-03-2023 End: 03-03-2023 ambulatory [facility] Ambulatory Start: 03-03-2023 End: 03-03-2023 Office outpatient visit 25 minutes Reyna Preston MD Work Phone: [facility] Comment on above: Furuncle (Primary Dx ); Melanocytic nevus, unspecified location; Lentigo; Hemangioma of other sites; Seborrheic keratosis; Scar conditions and fibrosis of skin; Personal history of malignant melanoma of skin Start: 12-20-2022 End: 12-20-2022 ambulatory Dilan Sergio Other [employer] Other Start: 12-20-2022 Telephone encounter Dilan Sergio [facility] Start: 12-17-2022 End: 12-17-2022 ambulatory Dilan Sergio Other [employer] Other Start: 12-17-2022 Telephone encounter Dilan Sergio [facility] Start: 11-27-2022 End: 11-27-2022 ambulatory Dilan Sergio Other [employer] Other Start: 11-27-2022 Office outpatient vi sit 25 minutes Dilan Sergio [facility] Start: 09-09-2022 ambulatory Reyna Preston [facility] ity:[id number] Start: 09-03-2022 End: 09-03-2022 ambulatory Qamar Pandano Other [employer] Other Start: 09-03-2022 Office outpatient vi sit 15 minutes Christopher Harpal [facility] Start: 08-29-2022 End: 08-29-2022 ambulatory Dilan Sergio Other [employer] Other Start: 08-29-2022 Office outpatient vi sit 15 minutes Dilan Sergio [facility] Start: 08-26-2022 ambulatory Rajesh Mercer II Facility:[id number] Start: 08-26-2022 ambulatory Rajesh Mercer II Facility:[id number] Start: 08-19-2022 End: 08-19-2022 ambulatory Dilan Sergio Other [employer] Other Start: 08-19-2022 Telephone encounter Dilan Sergio [facility] Start: 07-15-2022 End: 07-15-2022 ambulatory Dilan Sergio Other [employer] Other Start: 07-15-2022 Office outpatient vi sit 25 minutes Dilan Sergio [facility] Start: 07-13-2022 End: 07-13-2022 ambulatory II Rajesh Mercer Work Phone: [facility] Work Phone: Start: 07-13-2022 End: 07-13-2022 Patient encounter procedure II Rajesh Mercer Work Phone: [facility] [place] Work Phone: Start: 07-10-2022 ambulatory Rajesh Mercer II Facility:[id number] Start: 07-09-2022 End: 07-10-2022 Office outpatient visit 15 minutes Reyna Preston Dept. of Dermatology Start: 07-09-2022 End: 07-10-2022 Office outpatient visit 25 minutes Reyna Preston Dept. of Dermatology Start: 05-13-2022 End: 05-13-2022 ambulatory II Rajesh Mercer Work Phone: [facility] Work Phone: Start: 05-13-2022 End: 05-13-2022 Patient encounter procedure II Rajesh Mercer Work Phone: [facility] Work Phone: Start: 05-08-2022 End: 05-08-2022 ambulatory Dilan Sergio Other [employer] Other Start: 05-08-2022 Telephone encounter Dilan Sergio [facility] Start: 03-07-2022 End: 03-07-2022 ambulatory Dilan Sergio Other [employer] Other Start: 03-07-2022 Telephone encounter Dilan Sergio [facility] Start: 03-06-2022 End: 03-06-2022 ambulatory II Rajesh Mercer Work Phone: [facility] Work Phone: Start: 03-06-2022 End: 03-06-2022 Patient encounter procedure II Rajesh Mercer Work Phone: [facility] Start: 03-04-2022 End: 03-04-2022 ambulatory Christopher Harpal Other [employer] Other Start: 03-04-2022 Office outpatient vi sit 15 minutes Christopher Harpal [facility] Start: 02-21-2022 End: 02-21-2022 ambulatory Dilan Sergio Other [employer] Other Start: 02-21-2022 Office outpatient vi sit 25 minutes Dilan Sergio [facility] Start: 02-20-2022 End: 02-20-2022 ambulatory II Rajesh Mercer Work Phone: [facility] Work Phone: Start: 02-20-2022 End: 02-20-2022 Patient encounter procedure II Rajesh Mercer Work Phone: [facility] [place] Start: 11-01-2021 End: 11-01-2021 ambulatory Dilan Esrgio Other [employer] Other Start: 11-01-2021 Telephone encounter Dilan Sergio [facility] Start: 10-23-2021 End: 10-23-2021 ambulatory Dilan Sergio Other [employer] Other Start: 10-23-2021 Office outpatient vi sit 25 minutes Dilan Esrgio [facility] Start: 10-19-2021 ambulatory Rajesh Mercer II Facility:[id number] Start: 10-02-2021 End: 10-02-2021 ambulatory Qamar Pandano Other [employer] Other Start: 10-02-2021 Office outpatient vi sit 15 minutes Christopher Harpal [facility] Start: 08-15-2021 End: 08-15-2021 Office outpatient visit 15 minutes Reyna Preston Dept. of Dermatology Start: 08-06-2021 End: 08-06-2021 ambulatory Dilan Sergio Other [employer] Other Start: 08-06-2021 Telephone encounter Dilan Sergio [facility] Start: 08-03-2021 End: 08-25-[address] RAJ GALLOWAY Facility:[id number] Start: 06-18-2021 Patient encounter procedure No PCP None [facility] Work Phone: Start: 06-18-2021 Phys/qhp telephone evaluation 11-20 min No PCP None [facility]: Start: 04-18-2021 End: 04-18-2021 ambulatory Dilan Sergio Other [employer] Other Start: 04-18-2021 Office outpatient vi sit 25 minutes Dilan Nguyễn [facility] Start: 04-02-2021 End: 04-02-2021 ambulatory Qamar Rowan Other [employer] Other Start: 04-02-2021 Office outpatient vi sit 15 minutes Qamar Rowan [facility] Start: 12-19-2020 Chart Update No PCP None [facility] Work Phone: Start: 11-27-2020 Office outpatient vi sit 15 minutes No PCP None [facility] Work Phone: Start: 09-13-2020 End: 09-13-2020 Office outpatient visit 15 minutes [facility] Dept. of Dermatology Start: 01-26-2020 End: 01-26-2020 Office outpatient visit 15 minutes [facility] Start: 01-26-2020 End: 01-26-2020 Office outpatient visit 25 minutes [facility] Start: 03-06-2018 End: 03-07-2018 Patient encounter procedure [facility] Start: 09-19-2017 End: 09-20-2017 Patient encounter procedure [facility] Procedures Date Procedure Procedure Detail Performing Clinician Start: 09-22-2024 Computerized ophthal srinivas imaging retina Dez Gallagher Jr Start: 09-22-2024 Eylea 1mg Pre-filled Syringe Dez Gallagher Jr Start: 09-22-2024 Intravitreal njx pha rmacologic agt spx Dez Gallagher Jr Start: 08-27-2024 Natriuretic peptide Sabino adrien Mercer MD Work Phone: Start: 06-30-2024 URINE CULTURE - [facility] neric External Data Provider Start: 06-30-2024 Urine culture Rajesh Bradley rry II Work Phone: Start: 06-18-2024 ALL MAGNESIUM Rajesh Mercer MD Work Phone: Start: 06-18-2024 [facility] CMP (CMP) (FOR [facility] USE) Rajesh Mercer MD Work [...] Dez Gallagher Jr Start: 05-21-2024 Intravitreal njx pha rmacologic agt spx Dez Gallagher Jr Start: 04-12-2024 Comprehensive metabolic panel Rajesh Mercer MD Work Phone: Start: 03-03-2024 Computerized ophthal srinivas imaging retina Dez Gallagher Jr Start: 03-03-2024 Eylea 1mg Pre-filled Syringe Dez Gallagher Jr Start: 03-03-2024 Intravitreal njx pha rmacologic agt spx Dez Gallagher Jr Start: 02-26-2024 Hemoglobin glycosylated a1c Gina Bustillo MD Work Phone: Start: 12-31-2023 Computerized ophthal srinivas imaging retina Dez Gallagher Start: 12-31-2023 Eylea 1mg Pre-filled Syringe Dez Gallagher Start: 12-31-2023 Intravitreal njx pha rmacologic agt spx Dez Gallagher Start: 11-25-2023 Hemoglobin glycosylated a1c Maggi Pena CUSTOMER SERVICE TELLER-DIRECTOR OF MARKETING AND PROMOTIONS Work Phone: Start: 10-24-2023 Diabetic retinal eye exam Gina Bustillo MD Work Phone: Start: 08-08-2023 Hemoglobin glycosylated a1c Maggi Pena CUSTOMER SERVICE TELLER-DIRECTOR OF MARKETING AND PROMOTIONS Work Phone: Start: 08-05-2023 Urine albumin quantitative Rajesh Mercer MD Work Phone: Start: 07-18-2023 Urine culture II Rajesh Mercer Work Phone: Start: 11-25-2022 Microalbumin [Mass/v olume] in Urine by Test strip Maggi CORONEL Work Phone: Start: 07-09-2022 End: 07-10-2022 Tangential biopsy skin single lesion Reyna Preston Start: 02-20-2022 Urine culture II Rajesh Mercer Work Phone: Start: 05-21-2021 Follow-up visit Start: 07-24-2020 Follow-up visit Start: 10-08-2019 Excision of melanoma No PCP None Comment on above: Wide excision Left u pper arm melanoma with 1 cm. margins and intermediaterepair of a 9cm. wound defect; Start: 03-06-2018 Assay of magnesium JOE MERCER Start: 03-06-2018 Blood count complete automated RAJESH MERCER Start: 03-06-2018 Creatinine [Mass/vol ume] in Urine RAJESH MERCER Start: 03-06-2018 PTH, INTACT RAJESH TERESA RY Start: 03-06-2018 RENAL FUNCTION PANEL DA LUZ MERCER Start: 03-06-2018 Urate [Mass/volume] in Serum or Plasma RAJESH MERCER Start: 03-06-2018 Urnls dip stick/tabl et reagent auto microscopy RAJESH MERCER Start: 03-06-2018 VITAMIN D 25 HYDROXY ROSEY MERCER Start: 09-19-2017 Assay of magnesium JOE MERCER Start: 09-19-2017 Blood count complete automated RAJESH MERCER Start: 09-19-2017 PROTEIN / CREATININE RATIO, URINE RAJESH MERCER Start: 09-19-2017 PTH, INTACT RAJESH TERESA RY Start: 09-19-2017 RENAL FUNCTION PANEL DA LUZ MERCER Start: 09-19-2017 Urate [Mass/volume] in Serum or Plasma RAJESH MERCER Start: 09-19-2017 Urnls dip stick/tabl et reagent auto microscopy RAJESH MERCER Start: 09-19-2017 VITAMIN D 25 HYDROXY ROSEY MERCER Start: 05-05-2009 Lithotripsy of bladder calculus No PCP None Start: 05-05-1989 Cholecystectomy No PCP None Excision of melanoma JESSICA BRISCOE Comment on above: Outside Source Comme nt: Comment on above: Wide excision Left upper arm melanoma with 1 cm. margins and intermediaterepair of a 9cm. wound defect; History of cataract extraction JESSICA BRISCOE History of cholecystectomy Smith BRISCOE History of operative procedure on knee JESSICA BRISCOE Comment on above: Outside Source Comme nt: Comment on above: Bilat knees History of tonsillectomy YVETTE BRISCOE Intravitreal njx pha rmacologic agt spx JESSICA BRISCOE Ligation of fallopian tube N o PCP None Ligation of fallopian tube Smith BRISCOE Lithotripsy of bladder calculus JESSICA BRISCOE Pulmonary thromboendarterectomy JESSICA BRISCOE Comment on above: pt statres 3-4 years ago Removal of thrombus No PCP N one Total knee replacement LEWIS BRISCOE Urine culture II Rajesh diaz Work Phone: Plan of Treatment Date Care Activity Detail Author Start: 09-02-2027 Diabetes Screening Diabetes Screening [facility] Start: 2026 RSV Vaccine (1 - 1-dose 75+ series) RSV Vaccine (1 - 1-dose 75+ series) [facility] Start: 04-19-2025 Medicare Annual Wellness (AWV) Medicare Annual Wellness (AWV) [facility] Start: 04-19-2025 Pneumococcal Vaccine: 65+ Years (2 of 2 - PCV) Pneumococcal Vaccine: 65+ Years (2 of 2 - PCV) [facility] Comment on above: Postponed from 04/20/2020 (Patient Refus ed) Start: 04-19-2025 Screening for malignant neoplasm of breast Mammogram [facility] Comment on above: Postponed from 1991 (Patient Refus ed) Start: 04-19-2025 Screening for malignant neoplasm of colon Colorectal Cancer Screening [facility] Comment on above: Postponed from 1951 (Patient Refus ed) Start: 03-03-2025 Glaucoma screening Diabetes: Retinopathy Screening [facility] Start: 02-25-2025 Adult BMI Screening Adult BMI Screening [facility] Start: 02-25-2025 Tobacco Screening Tobacco Screening [facility] Start: 01-11-2025 End: 01-11-2025 Patient encounter procedure 01/11/2025 2:45 PM EDT Office Visit [facility] Adult Endocrinology, A Department of [facility] [address] [phone] Gina Bustillo MD [address] [address] [facility] Adult Endocrinology, A Department of [facility] Start: 01-03-2025 Influenza vaccination [facility] Start: 12-01-2024 Hemoglobin A1c measurement Diabetes: Hemoglobin A1C [facility] Start: 11-24-2024 Adult BMI Screening Adult BMI Screening [facility] Start: 11-24-2024 Tobacco Screening Tobacco Screening [facility] Start: 10-27-2024 End: 10-27-2024 Patient encounter procedure 10/27/2024 3:15 PM EDT Office Visit [facility] [address] [phone] Kailee Nova DPM [address] [facility] [address] [place] [address] [facility] Start: 10-23-2024 Glaucoma screening Diabetic Ophthalmology Exam [facility] Start: 10-18-2024 End: 10-18-2024 Patient encounter procedure [facility] Start: 10-04-2024 End: 10-04-2024 Patient encounter procedure 10/04/2024 3:00 PM EDT Office Visit Urology [address] [place] [address] [place] [address] [place] [address] CT SCAN FOLLOW UP Urology Comment on above: CT SCAN FOLLOW UP Start: 09-16-2024 End: 09-16-2024 Patient encounter procedure 09/16/2024 1:45 PM EDT Appointment Radiology [facility] CT [address] [place] [address] [place] [address] CT FLANK WO IVCON Radiology Pet CT Comment on above: CT FLANK WO IVCON Start: 09-15-2024 End: 09-15-2024 Patient encounter procedure Urology Comment on above: kidney stones Arrived Start: 09-13-2024 End: 09-13-2024 Patient encounter procedure 09/13/2024 3:00 PM EDT Office Visit Urology [address] [place] [address] [place] [address] [place] [address] kidney stones Urology Comment on above: kidney stones Start: 09-01-2024 End: 09-01-2024 Patient encounter procedure [facility] Comment on above: Arrived Start: 08-26-2024 End: 08-26-2024 Patient encounter procedure [facility] Start: 08-25-2024 End: 08-25-2024 Patient encounter procedure 08/25/2024 9:45 AM EDT Office Visit [facility] [address] [facility] [address] [place] [id number] Rajesh Mercer MD [address] [facility] [address] [place] [address] [facility] Start: 08-23-2024 Covid-19 Vaccine ( season) Covid-19 Vaccine () [facility] Start: 08-20-2024 End: 08-20-2026 Echocardiogram 2D complete Echocardiogram 2D complete Echocardiography Routine Shortness of breath Abnormal EKG Preoperative cardiovascular examination Expected: 08/20/2024 (Approximate), Expires: 08/20/2026 [facility] Comment on above: Expected: 08/20/2024 (Approximate), Expi res: 08/20/2026 Start: 08-20-2024 End: 08-20-2025 Natriuretic peptide B [Mass/volume] in Blood B-type natriuretic peptide Lab Routine History of pulmonary embolus (PE) Shortness of breath Abnormal EKG Expected: 08/20/2024 (Approximate), Expires: 08/20/2025 [facility] Work Phone: Comment on above: Expected: 08/20/2024 (Approximate), Expi res: 08/20/2025 Start: 08-20-2024 End: 08-20-2025 Pulmonary function report Pulmonary Function Test Imaging Routine Chronic obstructive pulmonary disease, unspecified COPD type (CMS/HCC) Shortness of breath Preoperative clearance Expected: 08/20/2024, Expires: 08/20/2025 [facility] Comment on above: Expected: 08/20/2024, Expires: Start: 08-17-2024 End: 08-17-2024 Patient encounter procedure 08/17/2024 3:45 PM EDT Office Visit [facility] [address] [place] [address] Kailee Nova DPM [address] [place] [address] [facility] Start: 08-07-2024 Adult BMI Screening Adult BMI Screening [facility] Start: 08-07-2024 Tobacco Screening Tobacco Screening [facility] Start: 08-04-2024 Urine screening for protein Diabetes: Urine Protein Screening [facility] Start: 07-20-2024 End: 07-20-2024 Patient encounter procedure 07/20/2024 3:45 PM EDT Office Visit [facility] [address] [place] [address] Nova, Kailee H, DPM [address] [place] [address] [facility] Start: 07-07-2024 End: 07-07-2024 Patient encounter procedure 07/07/2024 2:15 PM EST Office Visit [facility] [address] [place] [phone] Kailee Nova, DPM [address] [place] [address] [facility] Start: 06-30-2024 Urine culture [facility] Start: 06-30-2024 Bacteria identified in Urine by Culture Urine Culture [facility] Start: 06-22-2024 End: 06-22-2024 Patient encounter procedure 06/22/2024 3:45 PM EST Office Visit [facility] [address] [place] [address] Kailee Nova, DPM [address] [place] [address] [facility] Start: 06-18-2024 End: 06-18-2025 Comprehensive metabolic 2000 panel - Serum or Plasma Comprehensive metabolic panel Lab Routine 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 ([facility]) Expected: 06/18/2024 (Approximate), Expires: 06/18/2025 [facility] Comment on above: Expected: 06/18/2024 (Approximate), Expi res: 06/18/2025 Start: 06-18-2024 End: 06-18-2025 Magnesium [Mass/volume] in Serum or Plasma Magnesium Lab Routine 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 ([facility]) Expected: 06/18/2024 (Approximate), Expires: 06/18/2025 [facility] Comment on above: Expected: 06/18/2024 (Approximate), Expi res: 06/18/2025 Start: 06-18-2024 End: 06-18-2024 Patient encounter procedure 06/18/2024 11:30 AM EST Office Visit [facility] [address] [place] [address] Rajesh Mercer MD [address] [place] [address] Arrived [facility] Comment on above: Arrived Start: 06-10-2024 End: 06-10-2024 Patient encounter procedure 06/10/2024 10:30 AM EST Office Visit [facility] [address] [place] [address] Rajesh Mercer MD [address] [place] [address] [facility] Start: 05-28-2024 Hemoglobin A1c measurement Diabetes: Hemoglobin A1C [facility] Start: 05-24-2024 End: 05-24-2024 Patient encounter procedure 05/24/2024 4:15 PM EST Office Visit [facility] [address] [place] [address] Kailee Nova, DPM [address] [place] [address] [facility] Start: 05-05-2024 Advance Directive Discussion Advance Directive Discussion [facility] Start: 04-22-2024 End: 04-22-2024 Patient encounter procedure [facility] Comment on above: Arrived Start: 04-21-2024 End: 04-21-2024 Patient encounter procedure [facility] Start: 04-19-2024 End: 04-19-2024 Patient encounter procedure [facility] Comment on above: Arrived Start: 03-25-2024 End: 03-25-2024 Patient encounter procedure 03/25/2024 2:30 PM EST Office Visit [facility] [address] [place] [phone] Kailee Nova, DPM [address] [place] [address] Arrived [facility] Comment on above: Arrived Start: 03-24-2024 End: 03-24-2024 Patient encounter procedure 03/24/2024 3:00 PM EST Office Visit [facility] [address] [place] [phone] Kailee Nova, DPM [address] [place] [address] [facility] Start: 03-23-2024 End: 03-23-2024 Patient encounter procedure 03/23/2024 4:00 PM EST Office Visit [facility] [address] [facility] [address] [place] [address] Michael Bass, DPM [address] [facility] [address] [place] [address] [facility] Start: 03-10-2024 End: 03-10-2024 Patient encounter procedure 03/10/2024 3:00 PM EST Office Visit [facility] [address] [address] Reyna Preston MD [address] [facility] [address], [facility] [address] [place] [address] [facility] Start: 03-05-2024 Examination of skin Derm Melanoma Skin Check [facility] Start: 02-27-2024 Medicare Annual Wellness (AWV) Medicare Annual Wellness (AWV) [facility] Start: 02-27-2024 Screening for malignant neoplasm of colon Colorectal Cancer Screening [facility] Comment on above: Postponed from 1951 (Patient Refus ed) Start: 02-26-2024 Screening for malignant neoplasm of breast Mammogram [facility] Comment on above: Postponed from 1991 (Patient Refus ed) Start: 02-26-2024 End: 02-26-2024 Patient encounter procedure 02/26/2024 11:45 AM EDT Office Visit [facility] [address] [place] [address] Gina Bustillo MD [address] [place] [address] [facility] Start: 02-25-2024 Hemoglobin A1c measurement Diabetes: Hemoglobin A1C [facility] Start: 02-24-2024 End: 02-24-2024 Patient encounter procedure 02/24/2024 2:30 PM EDT Office Visit [facility] [address] [place] [phone] Kailee Nova DPM [address] [place] [address] [facility] Start: 01-26-2024 End: 01-26-2024 Patient encounter procedure [facility] Comment on above: Arrived Start: 01-24-2024 Glaucoma screening Diabetes: Retinopathy Screening [facility] Start: 01-16-2024 End: 01-15-2025 XR Knee - right 4 Views XR knee 4+ views right Imaging Routine Acute pain of right knee Expected: 01/16/2024, Expires: 01/15/2025 [facility] Work Phone: Comment on above: Expected: 01/16/2024, Expires: Start: 01-16-2024 End: 01-16-2024 Patient encounter procedure 01/16/2024 1:00 PM EDT Office Visit [facility] [address] [facility] [address] [place] [phone] Gina Whiteside PA [address] [place] [address] Arrived [facility] Comment on above: Arrived Start: 01-04-2024 Covid-19 Vaccine ( season) Covid-19 Vaccine ( season) [facility] Start: 01-04-2024 Influenza vaccination [facility] Start: 12-21-2023 Adult BMI Screening Adult BMI Screening [facility] Start: 12-21-2023 Tobacco Screening Tobacco Screening [facility] Start: 11-26-2023 Urine screening for protein [facility] Start: 11-25-2023 End: 11-25-2023 Patient encounter procedure 11/25/2023 11:30 AM EDT Office Visit [facility] [address] [place] [address] Maggi Pena, CUSTOMER SERVICE TELLER-DIRECTOR OF MARKETING AND PROMOTIONS [address] [place] [address] [facility] Start: 09-03-2023 End: 09-03-2023 Patient encounter procedure 09/03/2023 2:45 PM EDT Office Visit [facility] [address] [place] [address] Reyna Preston MD [address] [place] [address] [facility] Start: 07-18-2023 Bacteria identified in Urine by Culture Urine Culture [facility] Start: 06-27-2023 COVID-19 Vaccine () COVID-19 Vaccine () [facility] Start: 06-27-2023 COVID-19 Vaccine () COVID-19 Vaccine () [facility] Start: 04-21-2023 COVID-19 Vaccine (4 - Moderna series) COVID-19 Vaccine (4 - Moderna series) [facility] Start: 03-22-2023 Hemoglobin A1c measurement Diabetes: Hemoglobin A1C [facility] Start: 01-03-2023 COVID-19 Vaccine () COVID-19 Vaccine () [facility] Start: 01-03-2023 Influenza vaccination Influenza Vaccine [facility] Start: 07-13-2022 Bacteria identified in Urine by Culture [facility] Start: 05-21-2021 FUV, Provider: Heath Francisco, Status: Pen, Time: 2:00 PM FUV, Provider: Heath Francisco, Status: Pen, Time: 2:00 PM [facility] Work Phone: Start: 04-20-2020 Pneumococcal Vaccine: 50+ (2 of 2 - PCV) Pneumococcal Vaccine: 50+ (2 of 2 - PCV) [facility] Start: 04-20-2020 Pneumococcal Vaccine: 65+ Years (2 - PCV) Pneumococcal Vaccine: 65+ Years (2 - PCV) [facility] Start: 04-20-2020 Pneumococcal Vaccine: 65+ Years (2 of 2 - PCV) Pneumococcal Vaccine: 65+ Years (2 of 2 - PCV) [facility] Start: 2016 Fall Risk Screening Fall Risk Screening [facility] Start: 2016 Screening for osteoporosis Bone Density Screening [facility] Start: 2011 RSV patients and/or patients aged 60+ years (1 - 1-dose 60+ series) RSV patients and/or patients aged 60+ years (1 - 1-dose 60+ series) [facility] Start: 2011 RSV Vaccine (1 - Risk 60-74 years 1-dose series) RSV Vaccine (1 - Risk 60-74 years 1-dose series) [facility] Start: 2001 Administration of varicella zoster vaccine Zoster (Shingles) Vaccine (1 of 2) [facility] Start: 2001 Pneumococcal Vaccine: 50+ (1 of 1 - PCV) Pneumococcal Vaccine: 50+ (1 of 1 - PCV) [facility] Start: 2001 Shingrix Vaccine (1 of 2) Shingrix Vaccine (1 of 2) [facility] Start: 2001 Zoster Vaccines (1 of 2) Zoster Vaccines (1 of 2) [facility] Start: 1996 Diabetes Screening Diabetes Screening [facility] Start: 1996 Lipid panel Lipid Screening [facility] Start: 1996 Screening for malignant neoplasm of colon [facility] Start: 1991 Screening for malignant neoplasm of breast [facility] Start: 1973 DTaP/Tdap/Td Vaccines (1 - Tdap) DTaP/Tdap/Td Vaccines (1 - Tdap) [facility] Start: 1970 DTaP,Tdap and Td Vaccines (1 - Tdap) DTaP,Tdap and Td Vaccines (1 - Tdap) [facility] Start: 1970 Urine microalbumin profile DTaP,Tdap,Td Vaccine (1 - Tdap) [facility] Start: 1970 Urine screening for protein Diabetes: Urine Protein Screening [facility] Start: 1969 Adult BMI Follow Up Plan Adult BMI Follow Up Plan [facility] Start: 1969 Anxiety Screening Anxiety Screening [facility] Start: 1969 Depression Screening Depression Screening [facility] Start: 1969 Diabetic foot examination Diabetic Foot Exam [facility] Start: 1969 Hepatitis C screening Hepatitis C Screening [facility] Start: 1963 Depression Screening Depression Screening [facility] Start: 1961 Diabetic foot examination Diabetes: Foot Exam [facility] Start: 1951 Examination of skin Derm Melanoma Skin Check [facility] Start: 1951 Glaucoma screening Diabetic Ophthalmology Exam [facility] Start: 1951 Lipid panel Lipid Panel [facility] Start: 1951 Medicare Annual Wellness Visit [facility] Start: 1951 Screening for malignant neoplasm of colon [facility] Start: 1951 Screening for osteoporosis Bone Density Scan [facility] Bacteria identified in Urine by Culture [facility] BLOOD CULTURE 1 BLOOD CULTURE 1 Lab Routine 05/31/2024 4:30 PM EST [facility] BLOOD CULTURE 2 BLOOD CULTURE 2 Lab Routine 05/31/2024 4:40 PM EST [facility] CBC W Auto Different ial panel - Blood CBC and differential Lab Routine 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 (CMS/HCC) Ordered: 06/18/2024 [facility] [employer] Work Phone: Comment on above: Ordered: 06/18/2024 End: 10-13-2025 CT Abdomen and Pelvis WO contrast CT FLANK WO IVCON Radiology Routine Calculus of kidney 1 Occurrences starting 09/13/2024 until 10/13/2025 [facility] Work Phone: Comment on above: 1 Occurrences starting 09/13/2024 until 10/13/2025 CT Abdomen and Pelvi s WO contrast CT FLANK WO IVCON Radiology Routine Calculus of kidney 09/16/2024 2:16 PM EDT [facility] Work Phone: End: 11-24-2024 Lipid panel Lipid panel Lab Routine Mixed hyperlipidemia 1 Occurrences starting 11/25/2023 until 11/24/2024 [facility] Work Phone: Comment on above: 1 Occurrences starting 11/25/2023 until 11/24/2024 End: 10-19-2025 MR Liver WO and W contrast IV MRI LIVER WO/W IVCON Radiology Routine Liver lesion 1 Occurrences starting 09/19/2024 until 10/19/2025 [facility] Work Phone: Comment on above: 1 Occurrences starting 09/19/2024 until 10/19/2025 Renal function 1999 panel - Serum or Plasma [facility] Renal function 1999 panel - Serum or Plasma [facility] Renal function 1999 panel - Serum or Plasma [facility] Renal function 1999 panel - Serum or Plasma [facility]U [facility] - [facility] Routine 06/30/2024 9:50 PM EST [facility] Immunizations Immunization Date Immunization Notes Care Provider [facility] 02-23-2024 Seasonal trivalent influenza vaccine, adjuvanted, preservative free Rajesh Mercer MD Work Phone: [facility] 02-23-2024 influenza virus vaccine, unspecified formulation Kailee Nova DPM Work Phone: [facility] 02-24-2023 Influenza, Seasonal, Quadrivalent, Adjuvanted Reyna Preston MD Work Phone: [facility] Work Phone: 02-24-2023 Pfizer COVID-19 vaccine, Fall 2022, 12 years and older, (30mcg/0.3mL) Reyna Preston MD Work Phone: [facility] Work Phone: 02-24-2023 influenza virus vaccine, unspecified formulation Maggi Pena CUSTOMER SERVICE TELLER-DIRECTOR OF MARKETING AND PROMOTIONS Work Phone: [facility] 02-20-2022 Influenza, Seasonal, Quadrivalent, Adjuvanted Reyna Preston MD Work Phone: [facility] Work Phone: 02-20-2022 influenza virus vaccine, unspecified formulation Maggi Pena CUSTOMER SERVICE TELLER-DIRECTOR OF MARKETING AND PROMOTIONS Work Phone: [facility] 02-13-2022 influenza virus vaccine, unspecified formulation JESSICA NKANSAH-AMANKRA [facility] 02-13-2022 influenza, high dose seasonal, preservative-free Reyna Preston MD Work Phone: [facility] Work Phone: 01-26-2022 Moderna COVID-19 vaccine, bivalent, blue cap/harrell label *Check age/dose* Reyna Preston MD Work Phone: [facility] Work Phone: 03-22-2021 influenza virus vaccine, unspecified formulation JESSCIA NKANSAH-AMANKRA [facility] 03-22-2021 influenza, high dose seasonal, preservative-free Reyna Preston MD Work Phone: [facility] Work Phone: 03-06-2021 COVID-19 Moderna Mehraner Harpal Other [facility] 08-25-2020 COVID-19 Shannen Hectorchazer Harpal Other [facility] 07-26-2020 COVID-19 [facility] [place]pal Other [facility] Comment on above: Result Comment: 2024: [id number] 05-16-2020 influenza virus vaccine, unspecified formulation Gina MCGREGOR Work Phone: [facility] 05-16-2020 influenza, injectabl e, quadrivalent, contains preservative eRyna Preston MD Work Phone: [facility] Work Phone: 04-20-2019 pneumococcal polysaccharide vaccine, 23 valent Reyna Preston MD Work Phone: [facility] Work Phone: 03-29-2019 influenza virus vaccine, unspecified formulation JESSICA NKRAMESH-AMANKRA [facility] 03-29-2019 Influenza, injectabl e, Madin Aspen Canine Kidney, preservative free, quadrivalent Reyna Preston MD Work Phone: [facility] Work Phone: 02-08-2018 influenza virus vaccine, unspecified formulation JESSICA NKANSAH-AMANKRA [facility] 02-08-2018 Seasonal trivalent influenza vaccine, adjuvanted, preservative free Reyna Preston MD Work Phone: [facility] Work Phone: 02-07-2016 influenza virus vaccine, unspecified formulation JESSICA NKANSAH-AMANKRA [facility] 02-07-2016 influenza, injectabl e, quadrivalent, contains preservative Reyna Preston MD Work Phone: [facility] Work Phone: 01-06-2015 seasonal influenza, intradermal, preservative free Gina MCGREGOR Work Phone: [facility] 02-22-2008 influenza virus vaccine, whole virus Reyna Preston MD Work Phone: [facility] 02-22-2008 influenza, whole JESSICA SHERMAN-AMELIZABETHRA [facility] 1950 pneumococcal conjuga te vaccine, 7 valent Reyna Preston [facility]at[facility] Payers Date Payer Category Payer Self-pay [id number] 2021 Private Health Insurance [id number] 2019 Commercial Indemty [facility] [id number] 2019 Unknown 2017 Private Health Insurance [id number] 2016 Medicare [id number]. [id number] 1959 Medicare [id number] 1959 Unknown [id number] 1951 Unknown [id number] 2.16.840.1.559412.3.579.2. 173 1951 Unknown [id number] 2.16.840.1.887388.3.579.2. 173 1951 Unknown [id number] 2.16.840.1.103069.3.579.2. 593 1951 Unknown [id number] 2.16.840.1.089446.3.579.2. 356 1951 Unknown [id number] 2.16.840.1.245305.3.579.2. 356 1951 Unknown [id number] 2.16.840.1.043342.3.579.2. 356 1951 Unknown [id number] 2.16.840.1.161466.3.579.2. 356 1951 Unknown [id number] 2.16.840.1.415297.3.579.2. 356 1951 Unknown [id number] 2.16.840.1.619003.3.579.2. 356 1951 Unknown [id number] 2.16.840.1.389515.3.579.2. 1244 1951 Unknown [id number] 2.16.840.1.850702.3.579.2. 1244 1951 Unknown [id number] 2.16.840.1.715320.3.579.2. 1286 1951 Unknown [id number] 2.16.840.1.997332.3.579.2. 1286 1951 Unknown [id number] 2.16.840.1.141647.3.579.2. 1286 1951 Unknown [id number] 2.16.840.1.730753.3.579.2. 727 1951 Unknown [id number] 2.16.840.1.634431.3.579.2. 727 1951 Unknown [id number] 2.16.840.1.714338.3.579.2. 727 1951 Unknown [id number] 2.16.840.1.672613.3.579.2. 1259 1951 Unknown [id number] 2.16.840.1.747521.3.579.2. 125 1951 Unknown [id number] 2.16.840.1.477370.3.579.2. 125 1951 Unknown [id number] 2.16.840.1.246127.3.579.2. 1258 1951 Unknown [id number] 2.16.840.1.721009.3.579.2. 125 1951 Unknown [id number] 2.16.840.1.628229.3.579.2. 1258 1951 Unknown [id number] 2.16.840.1.169028.3.579.2. 125 1951 Unknown [id number] 2.16.840.1.191938.3.579.2. 1258 1951 Unknown [id number] 2.16.840.1.371555.3.579.2. 1259 1951 Unknown [id number] 2.16.840.1.978433.3.579.2. 125 1951 Unknown [id number] 2.16.840.1.850633.3.579.2. 125 1951 Unknown [id number] 2.16.840.1.556398.3.579.2. 1258 1951 Unknown [id number] 2.16.840.1.776248.3.579.2. 125 1951 Unknown [id number] 2.16.840.1.465312.3.579.2. 1347 1951 Unknown [id number] 2.16.840.1.092831.3.579.2. 1347 1951 Unknown [id number] 2.16.840.1.065398.3.579.2. 1347 1951 Unknown [id number] 2.16.840.1.771158.3.579.2. 1347 Unknown [id number] 2.16.840.1.346998.3.579.2. 531 Unknown [id number] 2.16.840.1.229682.3.579.2. 531 Unknown [id number] 2.16.840.1.540748.3.579.2. 531 Unknown [id number] 2.16.840.1.481611.3.579.2. 531 Social History Date Type Detail Facility Start: 09-13-2020 Dept. of ermatology Start: 1950 End: 1950 Sex Assigned At Female [facility] Start: 06-14-2020 End: 01-26-2024 Sex Assigned At [facility] [employer] Other Start: 1950 Sex Assigned At Not on file U [facility] Work Phone: Start: 02-21-2023 End: 09-03-2023 Exposure to SARS-CoV-2 (event) Not sure [facility] Start: 03-11-2018 End: 07-04-2022 Tobacco smoking status NHIS Never smoked tobacco (finding) [facility] Start: 07-04-2022 End: 09-03-2023 Tobacco use and exposure Smokeless tobacco non-user [facility] Work Phone: Start: 02-24-2024 End: 10-04-2024 Alcoholic beverage intake Lifetime non-drinker (finding) [facility] Start: 06-14-2020 End: 01-26-2024 History of Social function [facility] Start: 02-08-2024 Alcohol Comment caffeine intak e: more than 4 cups per day [facility] Start: 08-08-2023 End: 02-26-2024 Alcoholic beverage intake Ex-drinker (finding) [facility] Adolescent depressio n screening assessment 0 [facility] Start: 12-06-2014 End: 09-28-2024 Sex Female (finding) [facility] Sexual Orientation [facility] Medical Equipment Procedure Code Equipment Code Equipment Origin al Text Equipment Identifier Dates [id number], [id number], [id number], [id number], [id number] Start: 05-17-2022 End: 03-03-2024 Goals Date Patient Goal Desired Activity /State Functional Status Date Assessment Result Facility 08-18-2024 Functional Status No [facility] Clinical Notes 04-02-2021 to 10-04-2024 Chanell Tatum MD - 10/04/2024 3:00 PM EDT Note Date & Type Note Facility 10-04-2024 History of Present illness Narrative Images from the original note were not included. PATIENT INFO: Chloe Pickens 74 year old REFERRING PROVIDER.: No referring provider defined for this encounter. PCP: No primary care provider on file. 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 Has hx of cystolitholapaxy. Hx of stones, first stone 15 years ago that required stenting. She initially presented after she was scheduled for ESWL at OSH for management of a [address] identified stone, but was interested in additional options. Last OV 09/13/24 pt with some L sided flank pain. Endorsed that she was found to be septic earlier in the year at OSH, and was then later also hospitalized for infection. At this point, she explained, that she was found to have stones on CT as described above. On prof keflex today. Planned for CT ISAK. Interval hx Imaging: CTF 09/16/24: bilateral stones up ~ 8 x 12 mm on L side. 5 mm bladder stone nearing R UVJ. Hypodense hepatic lesion. Today the patient is accompanied by her and her daughter. Occasionally, has some flank pain- usually on L. No problems with bladder emptying. No results found for: CREAT No results found for: PSA No results found for: COLOR , CLARITY , UGLUC , UBILI , UKET , SPGR , UHB , UPH , UPROT , UROBILINOGEN , NITRITES , LEUKEST ALLERGIES Allergen Reactions Lanolin Unknown Doxycycline Rash, Unknown Other Reaction(s): hives/angioedema IMAGING: CT Flank 09/16/24 Right kidney and ureter: 2 mm nonobstructing stone in the lower pole of the right kidney. 5 mm stone near the right vesicoureteral junction. This could either be in the dependent portion of the right urinary bladder or the distal right ureter. There is no right hydroureteronephrosis. Left kidney and ureter: 5 mm nonobstructing stone in the midpole of the left kidney. Within the lower pole of the left kidney there are adjacent 5 and 4 mm nonobstructing stones. No ureteral calculi. No hydroureteronephrosis. Bladder: 5 mm stone near the right vesicoureteral junction as described above. MEDICATIONS: allopurinol (ZYLOPRIM) 100 mg tablet Take 100 mg by mouth once daily. Biotin 10 mg tab Take 10 mg by mouth. cephALEXin (KEFLEX) 250 mg capsule Take 1 capsule by mouth once daily. dulaglutide (TRULICITY) 0.75 mg/0.5 mL pen injector Inject 1.5 mg subcutaneously one time a week. fenofibrate nanocrystallized (TRICOR) 145 mg tablet Take 1 tablet by mouth daily with food. apixaban (ELIQUIS) 5 mg tab(s) Take 5 mg by mouth two times a day. furosemide (LASIX) 40 mg tablet Take 40 mg by mouth once daily. losartan (COZAAR) 100 mg tablet Take 1 tablet by mouth every morning. insulin aspart U-100 (NOVOLOG FLEXPEN U-100 INSULIN) 100 unit/mL (3 mL) Inject 50 Units subcutaneously two times a day. omeprazole (PRILOSEC) 20 mg capsule Take 20 mg by mouth once daily. Vit A,C,X-Arpw-Cjfgoi (PRESERVISION AREDS) 4,296 mcg-226 mg-90 mg cap 1 capsule. topiramate (TOPAMAX) 25 mg tablet Take 25 mg by mouth two times a day. loperamide (IMODIUM) 2 mg cap(s) Take 2 mg by mouth four times a day as needed. verapamil SR (CALAN SR) 240 mg CR tablet Take 240 mg by mouth daily at bedtime. HISTORIES No past medical history on file. No past surgical history on file. No family history on file. REVIEW OF SYSTEMS GENERAL: No fever, chills, weight loss, or fatigue. HEAD & NECK: No blurred vision, cataracts, or hearing loss. CARDIOVASCULAR: NO CHEST PAIN, PALPITATIONS, ANKLE EDEMA RESPIRATORY: No chronic cough, wheezing, dyspnea, hemoptysis. GENITOURINARY: as above GI: Negative for abdominal discomfort or fecal incontinence PHYSICAL EXAMINATION There were no vitals taken for this visit. General appearance: Wheelchair. Well appearing, alert, in no acute distress, and well-hydrated, well nourished Skin: Skin color, texture, turgor normal, no suspicious rashes or lesions Head: Normocephalic, no masses, lesions, tenderness or abnormalities RESP: Normal effort, no retractions or purse-lip breathing. Genitourinary: FEMALE EXAM: Exam NOT Indicated ASSESSMENT 1. Calculus of kidney - ICD9: 592.0, ICD10: N20.0 Chloe Pickens is a 74 year old year old female who presents today for follow up. Today the patient is accompanied by her and her daughter. Occasionally, has some flank pain- usually on L. No problems with bladder emptying. Reviewed mutually actual CT images from 09/16/24- large ~12 x 8 mm L sided nonobstructive stone. Additionally, there are multiple stones bilaterally that have a strong chance of passing PLAN OF MANAGEMENT: The patient was given reading material on kidney stone management, titled Understanding Kidney Stones . Discussed with the patient possible treatment options for kidney stones. Observation: risk of stone increasing in size, moving and causing obstruction, urine stasis with risk of infection, pain. ESWL: Benefits: least invasive. Poor stone free rate considering size, location. On AC. Do not recommend. Ureteroscopy: May need multiple procedures for stone clearance, prolonged stent placement, risk of infection and sepsis. Injury to the ureter, stricture formation,.Residual stone and fragments. PCNL: best chance of stone free from one procedure. Risks are: Bleeding, blood transfusion risk approximately 5%. If arterial injury may need angio-embolization by IR. Pneumothorax risk approximately 1%, may need chest tube placed in the OR or postoperatively. Injury to the bowel, adjacent structures. Need to hospitalization, additional procedure, 2nd look, prolonged drainage from nephrostomy tube or ureteral stent. Would need cardiology clearance to stop AC before, and likely after, PCNL. After a discussion, the patient elected to consider her options and will message me on [employer] on her final decision -Consider options -Message me on MyChart Patient to call or present to the ER if : Fever more than 101.5F Flank or abdominal pain Decreased urine output Unable to void Not feeling well Blood in urine My final recommendations will be communicated back to the requesting physician by way of shared Medical record or letter to requesting physician via US mail. The patient is seen and examined by Dr. Chanell Tatum and the following reflects his service. Scribed by Aj Maza. I agree with the Chief Complaint, ROS, and Past Histories independently gathered by the clinical information support project manager and the remaining scribed note accurately describes my personal service to the patient. This note was partially generated using [employer] voice recognition system. Chanell Tatum MD documented in this encounter [facility] 10-04-2024 Note HNO ID: [id number] Author: CHANELL TATUM MD Service: ? Author Type: Physician Type: Progress Notes Filed: 10/04/2024 21:06 Note Text: PATIENT INFO: Chloe Pickens 74 year old REFERRING PROVIDER.: No referring provider defined for this encounter. PCP: No primary care provider on file. 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 Has hx of cystolitholapaxy. Hx of stones, first stone 15 years ago that required stenting. She initially presented after she was scheduled for ESWL at OSH for management of a [address] identified stone, but was interested in additional options. Last OV 09/13/24 pt with some L sided flank pain. Endorsed that she was found to be septic earlier in the year at OSH, and was then later also hospitalized for infection. At this point, she explained, that she was found to have stones on CT as described above. On prof keflex today. Planned for CT ISAK. Interval hx Imaging: CTF 09/16/24: bilateral stones up ~ 8 x 12 mm on L side. 5 mm bladder stone nearing R UVJ. Hypodense hepatic lesion. Today the patient is accompanied by her and her daughter. Occasionally, has some flank pain- usually on L. No problems with bladder emptying. No results found for: CREAT No results found for: PSA No results found for: COLOR , CLARITY , UGLUC , UBILI , UKET , SPGR , UHB , UPH , UPROT , UROBILINOGEN , NITRITES , LEUKEST ALLERGIES Allergen Reactions Lanolin Unknown Doxycycline Rash, Unknown Other Reaction(s): hives/angioedema IMAGING: CT Flank 09/16/24 Right kidney and ureter: 2 mm nonobstructing stone in the lower pole of the right kidney. 5 mm stone near the right vesicoureteral junction. This could either be in the dependent portion of the right urinary bladder or the distal right ureter. There is no right hydroureteronephrosis. Left kidney and ureter: 5 mm nonobstructing stone in the midpole of the left kidney. Within the lower pole of the left kidney there are adjacent 5 and 4 mm nonobstructing stones. No ureteral calculi. No hydroureteronephrosis. Bladder: 5 mm stone near the right vesicoureteral junction as described above. MEDICATIONS: allopurinol (ZYLOPRIM) 100 mg tablet Take 100 mg by mouth once daily. Biotin 10 mg tab Take 10 mg by mouth. cephALEXin (KEFLEX) 250 mg capsule Take 1 capsule by mouth once daily. dulaglutide (TRULICITY) 0.75 mg/0.5 mL pen injector Inject 1.5 mg subcutaneously one time a week. fenofibrate nanocrystallized (TRICOR) 145 mg tablet Take 1 tablet by mouth daily with food. apixaban (ELIQUIS) 5 mg tab(s) Take 5 mg by mouth two times a day. furosemide (LASIX) 40 mg tablet Take 40 mg by mouth once daily. losartan (COZAAR) 100 mg tablet Take 1 tablet by mouth every morning. insulin aspart U-100 (NOVOLOG FLEXPEN U-100 INSULIN) 100 unit/mL (3 mL) Inject 50 Units subcutaneously two times a day. omeprazole (PRILOSEC) 20 mg capsule Take 20 mg by mouth once daily. Vit A,C,H-Qkzm-Lbvfzf (PRESERVISION AREDS) 4,296 mcg-226 mg-90 mg cap 1 capsule. topiramate (TOPAMAX) 25 mg tablet Take 25 mg by mouth two times a day. loperamide (IMODIUM) 2 mg cap(s) Take 2 mg by mouth four times a day as needed. verapamil SR (CALAN SR) 240 mg CR tablet Take 240 mg by mouth daily at bedtime. HISTORIES No past medical history on file. No past surgical history on file. No family history on file. REVIEW OF SYSTEMS GENERAL: No fever, chills, weight loss, or fatigue. HEAD AND NECK: No blurred vision, cataracts, or hearing loss. CARDIOVASCULAR: NO CHEST PAIN, PALPITATIONS, ANKLE EDEMA RESPIRATORY: No chronic cough, wheezing, dyspnea, hemoptysis. GENITOURINARY: as above GI: Negative for abdominal discomfort or fecal incontinence PHYSICAL EXAMINATION There were no vitals taken for this visit. General appearance: Wheelchair. Well appearing, alert, in no acute distress, and well-hydrated, well nourished Skin: Skin color, texture, turgor normal, no suspicious rashes or lesions Head: Normocephalic, no masses, lesions, tenderness or abnormalities RESP: Normal effort, no retractions or purse-lip breathing. Genitourinary: FEMALE EXAM: Exam NOT Indicated ASSESSMENT 1. Calculus of kidney - ICD9: 592.0, ICD10: N20.0 Chloe Pickens is a 74 year old year old female who presents today for follow up. Today the patient is accompanied by her and her daughter. Occasionally, has some flank pain- usually on L. No problems with bladder emptying. Reviewed mutually actual CT images from 09/16/24- large ~12 x 8 mm L sided nonobstructive stone. Additionally, there are multiple stones bilaterally that have a strong chance of passing PLAN OF MANAGEMENT: The patient was given reading material on kidney stone management, titled Understanding Kidney St (more content not included)... [facility] 09-28-2024 Evaluation note Diagnosis Onset Date Resolution CKD (chronic kidney disease) stage 4, GFR 15-29 ml/min acute September 28, 2024 3:54pm Hyperlipidemia acute September 28, 2024 3:54pm Hypertensive chronic kidney disease with stage 1 through stage 4 chronic ki acute September 28, 2024 3:54pm Nephrolithiasis, uric acid acute September 28, 2024 3:54pm Type 2 diabetes mellitus with diabetic chronic kidney disease acute September 28, 2024 3:54pm Vitamin D deficiency acute September 28, 2024 3:54pm [facility] Work Phone: 1(875) 641-117005-18-2025 Telephone encounter Note* Telephone Encounter - Chanell Tatum MD - 09/19/2024 7:58 PM EDT Please advise the patient, will discuss kidney stones at the visit. Lesion suggested in the liver, will need further characterization, ordered MRI of the liver. This lesion should be discussed with primary doctor. Please help the patient schedule the MRI Continue with plans for office visit as scheduled. Thank you Chanell Tatum MD [facility]05-18-2025 Miscellaneous Notes* Telephone Encounter - Chanell Tatum MD - 09/19/2024 7:58 PM EDT Please advise the patient, will discuss kidney stones at the visit. Lesion suggested in the liver, will need further characterization, ordered MRI of the liver. This lesion should be discussed with primary doctor. Please help the patient schedule the MRI Continue with plans for office visit as scheduled. Thank you Chanell Tatum MD [facility] History of Present illness Narrative* Loida Talley, RT(R) - 09/16/2024 1:45 PM EDT Radiology Service Progress Note PATIENT NAME: Chloe Pickens DATE OF SERVICE: September 16, 2024 TIME: 1:26 PM PATIENT IDENTITY VERIFICATION COMPLETED USING TWO (2) IDENTIFIERS: Name and Date of confirmedby patient verbally. FALL SCREENING: Has the patient had 2 falls in the last year or 1 fall with injury or currently using an Ambulatory Assistive Device (Walker, Cane, Wheelchair, Crutches, etc.)? No PATIENT GENDER DATA: Assigned female at . status: : No status:NO. PATIENT RELEVANT IMPLANT DATA REVIEWED: Not Applicable PATIENT PRESENTS WITH AN IMPLANTABLE OR ATTACHED PLASTER LATHER: No RADIOLOGY DEPARTMENT: CT; Exam(s) Completed: Flank Study PERIPHERAL IV DATA: Not applicable SIGNED BY: RT Sina(Adrian) September 16, 2024 1:26 PM documented in this encounter[facility]2025 NoteHNO ID: [id number] Author: LOIDA TALLEY RT(R) Service: ? Author Type: Technologist Type: Progress Notes Filed: 09/16/2024 13:27 Note Text: Radiology Service Progress Note PATIENT NAME: Chloe Pickens DATE OF SERVICE: September 16, 2024 TIME: 1:26 PM PATIENT IDENTITY VERIFICATION COMPLETED USING TWO (2) IDENTIFIERS: Name and Date of confirmed by patient verbally. FALL SCREENING: Has the patient had 2 falls in the last year or 1 fall with injury or currently using an Ambulatory Assistive Device (Walker, Cane, Wheelchair, Crutches, etc.)? No PATIENT GENDER DATA: Assigned female at . status: : No status: NO. PATIENT RELEVANT IMPLANT DATA REVIEWED: Not Applicable PATIENT PRESENTS WITH AN IMPLANTABLE OR ATTACHED PLASTER LATHER: No RADIOLOGY DEPARTMENT: CT; Exam(s) Completed: Flank Study PERIPHERAL IV DATA: Not applicable SIGNED BY: RT Sina(R) September 16, 2024 1:26 [facility]05-14-2025 History of Present illness Narrative* Kailee Nova DPM - 09/15/2024 3:15 PM EDT Images from the original note were not [...] surroundings, in no acute distress FOOT EXAM: 09/09/24 Vascular: DORSALIS PEDIS PULSE: 2/4, bilaterally POSTERIOR [...] foot: Onychomycosis Diabetes without complication Treatment Note: 1. All mycotic and/or dystrophic nails were debrided in length and thickness by manual and mechanical means. 2. Advised patient of proper foot care to prevent any future complications including daily monitoring of the feet. 3. RTC: 9-12 weeks or as needed if problems arise as patient would like to continue to come in for routine nail care appointments to prevent future pain and problems developing from the overgrowth ofthe toenails. documented in this encounterCox [id number] Instructions* Patient Instructions* Chanell Tatum MD - 09/13/2024 3:[address] scan stone protocol Followed by an office visit Patient to call or present to the ER if : Fever more than 101.5F Flank or abdominal pain Decreased urine output Unable to void Not feeling well Blood in urine documented in this encounterWhite [facility]25 History of Present illness Narrative* Chanell Tatum MD - 09/13/2024 3:00 PM EDT PATIENT INFO: Chloe Pickens 74 year old REFERRING PROVIDER.: No referring provider defined for this encounter. PCP: No primary care provider on file. CC: Nephrolithiasis HPI: Chloe Pickens is a 74 year old year old female with a PMH significant for asthma, CKD stage IV2/2 DMII, kidney stones, HTN, GERD, bladder stone who presents today for evaluation of nephrolithiasis. Has hx of cystolitholapaxy. Hx of stones, first stone 15 years ago that required stenting. Has CT identified nonobstructive stones bilaterally, largest being 9 mm in LLP. Was scheduled for ESWL at OSH but deferred to discuss options, namely [facility]. On [facility]. Today the patient is accompanied by her [place]. No images today. She was taken to OSH earlierthis year, found to be septic. Later on 07/01/24 hospitalized due to infection and found to have nephrolithiasis. Discharged 07/03/24. Some L sided flank pain today. On keflex for prophylactic use. No results found for: CREAT No results found for: PSA No results found for: COLOR , CLARITY , UGLUC , UBILI , UKET , SPGR , UHB , UPH , UPROT , UROBILINOGEN , NITRITES , LEUKEST ALLERGIES Not on File IMAGING: MEDICATIONS: No prescriptions on file. HISTORIES No past medical history on file. No past surgical history on file. No family history on file. REVIEW OF SYSTEMS GENERAL: No fever, chills, weight loss, or fatigue. HEAD & NECK: No blurred vision, cataracts, or hearing loss. CARDIOVASCULAR: NO CHEST PAIN, PALPITATIONS, ANKLE EDEMA RESPIRATORY: No chronic cough, wheezing, dyspnea, hemoptysis. GENITOURINARY: as above GI: Negative for abdominal discomfort or fecal incontinence PHYSICAL EXAMINATION There were no vitals taken for this visit. General appearance: Wheelchair, Well appearing, alert, in no acute distress, and well-hydrated, well nourished Skin: Skin color, texture, turgor normal, no suspicious rashes or lesions Head: Normocephalic, no masses, lesions, tenderness or abnormalities RESP: Normal effort, no retractions or purse-lip breathing. Genitourinary: FEMALE EXAM: Exam NOT Indicated ASSESSMENT AND PLAN OF MANAGEMENT 1. Calculus of kidney - ICD9: 592.0, ICD10: N20.0 (primary diagnosis) 2. Calculus of bladder - ICD9: 594.1, ICD10: N21.0 74 year old female with report from OSH that reads that she had CT on 07/01/24 that visualized nonobstructive stones in bilateral calyces, largest being LLP 9 mm. Also with 5 mm bladder stone on this exam. No images at visit. Need updated study and actual images to proceed with a procedural plan. She is also on prophylactic keflex. Amendable to update imaging, will do this at [facility]. Discussed generalized dietary modifications for stone prevention, included necessity of following direction of PCP, cardiology, nephrology, if applicable. -CT stone protocol ISAK -RT to discuss results Patient to call or present to the ER if : Fever more than 101.5F Flank or abdominal pain Decreased urine output Unable to void Not feeling well Blood in urine My final recommendations will be communicated back to the requesting physician by way of shared Medical record or letter to requesting physician via US mail. The patient is seen and examined by Dr. Chanell Tatum and the following reflects his service. Scribed by Aj Maza. I agree with the Chief Complaint, ROS, and Past Histories independently gathered by the clinical information support project manager and the remaining scribed note accurately describes my personal service to the patient. This note was partially generated using [employer] voice recognition system. Chanell Tatum MD documented in this encounterWhite Hospital05-12-2025 NoteHNO ID: [id number] Author: CHANELL TATUM MD Service: ? Author Type: Physician Type: Progress Notes Filed: 09/13/2024 19:34 Note Text: PATIENT INFO: Chloe Pickens 74 year old REFERRING PROVIDER.: No referring provider defined for this encounter. PCP: No primary care provider on file. CC: Nephrolithiasis HPI: Chloe Pickens is a 74 year old year old female with a PMH significant for asthma, CKD stage IV 2/2 DMII, kidney stones, HTN, GERD, bladder stone who presents today for evaluation of nephrolithiasis. Has hx of cystolitholapaxy. Hx of stones, first stone 15 years ago that required stenting. Has CT identified nonobstructive stones bilaterally, largest being 9 mm in LLP. Was scheduled for ESWL at OSH but deferred to discuss options, namely URS. 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 Today the patient is accompanied by her [place]. No images today. She was taken to OSH earlier this year, found to be septic. Later on 07/01/24 hospitalized due to infection and found to have nephrolithiasis. Discharged 07/03/24. Some L sided flank pain today. On keflex for prophylactic use. No results found for: CREAT No results found for: PSA No results found for: COLOR , CLARITY , UGLUC , UBILI , UKET , SPGR , UHB , UPH , UPROT , UROBILINOGEN , NITRITES , LEUKEST ALLERGIES Not on File IMAGING: MEDICATIONS: No prescriptions on file. HISTORIES No past medical history on file. No past surgical history on file. No family history on file. REVIEW OF SYSTEMS GENERAL: No fever, chills, weight loss, or fatigue. HEAD AND NECK: No blurred vision, cataracts, or hearing loss. CARDIOVASCULAR: NO CHEST PAIN, PALPITATIONS, ANKLE EDEMA RESPIRATORY: No chronic cough, wheezing, dyspnea, hemoptysis. GENITOURINARY: as above GI: Negative for abdominal discomfort or fecal incontinence PHYSICAL EXAMINATION There were no vitals taken for this visit. General appearance: Wheelchair, Well appearing, alert, in no acute distress, and well-hydrated, well nourished Skin: Skin color, texture, turgor normal, no suspicious rashes or lesions Head: Normocephalic, no masses, lesions, tenderness or abnormalities RESP: Normal effort, no retractions or purse-lip breathing. Genitourinary: FEMALE EXAM: Exam NOT Indicated ASSESSMENT AND PLAN OF MANAGEMENT 1. Calculus of kidney - ICD9: 592.0, ICD10: N20.0 (primary diagnosis) 2. Calculus of bladder - ICD9: 594.1, ICD10: N21.0 74 year old female with report from OSH that reads that she had CT on 07/01/24 that visualized nonobstructive stones in bilateral calyces, largest being LLP 9 mm. Also with 5 mm bladder stone on this exam. No images at visit. Need updated study and actual images to proceed with a procedural plan. She is also on prophylactic keflex. Amendable to update imaging, will do this at [facility]. Discussed generalized dietary modifications for stone prevention, included necessity of following direction of PCP, cardiology, nephrology, if applicable. -CT stone protocol ISAK -RTC to discuss results Patient to call or present to the ER if : Fever more than 101.5F Flank or abdominal pain Decreased urine output Unable to void Not feeling well Blood in urine My final recommendations will be communicated back to the requesting physician by way of shared Medical record or letter to requesting physician via US mail. The patient is seen and examined by Dr. Chanell Tatum and the following reflects his service. Scribed by Aj Maza. I agree with the Chief Complaint, ROS, and Past Histories independently gathered by the clinical information support project manager and the remaining scribed note accurately describes my personal service to the patient. This note was partially generated using [employer] voice recognition system. Chanell Tatum, [facility]05-06-2025 Telephone encounter Note* Telephone Encounter - Eva Bray RN - 09/07/2024 2:19 PM EDT Received fax from [facility] for consult for kidney stones to Dr. Tatum. Pt already has appointment scheduled with Dr. Tatum for next week. Will have all patient information we received scanned into the chart. [facility]05-06-2025 Miscellaneous Notes* Telephone Encounter - Eva Bray RN - 09/07/2024 2:19 PM EDT Received fax from [facility] for consult for kidney stones to Dr. Tatum. Pt already has appointment scheduled with Dr. Tatum for next week. Will have all patient information we received scanned into the chart. documented in this encounterWhite Hospital05-05-2025 NotePatient Education Urology Kidney Stones Kidney stones are rock-like masses that form inside of the kidneys. Kidneys are organs that make pee (urine). A kidney stone may move into other parts of the urinary tract, including: ??? The tubes that connect the kidneys to the bladder (ureters). ??? The bladder. ??? The tube that carries urine out of the body (urethra). Kidney stones can cause very bad pain and can block the flow of pee. The stone usually leaves your body through your pee. A doctor may need to take out the stone. What are the causes? Kidney stones may be caused by: ??? Too much calcium in the body. This may be caused by too much parathyroid hormone in the blood. ??? Uric acid crystals in the bladder. The body makes uric acid when you eat certain foods. ??? Narrowing of one or both of the ureters. ??? A kidney blockage that you were born with. ??? Past surgery on the kidney or the ureters. What increases the risk? You are more likely to develop this condition if: ??? You have had a kidney stone in the past. ??? Other people in your family have had kidney stones. ??? You do not drink enough water. ??? You eat a diet that is high in protein, salt (sodium), or sugar. ??? You are very overweight (obese). What are the signs or symptoms? Symptoms of a kidney stone may include: ??? Pain in the side of the belly, right below the ribs. Pain usually spreads to the groin. ??? Needing to pee often or right away. ??? Pain when peeing. ??? Blood in your pee. ??? Feeling like you may vomit (nauseous). ??? Vomiting. ??? Fever and chills. How is this treated? Treatment depends on the size, location, and makeup of the kidney stones. The stones will often pass out of the body when you pee. You may need to: ??? Drink more fluid to help pass the stone. ? In some cases, you may be given fluids through an IV tube at the hospital. ??? Take medicine for pain. ??? Change your diet to help keep kidney stones from coming back. Sometimes, you may need: ??? A procedure to break up kidney stones using a beam of light (laser) or shock waves. ??? Surgery to remove the kidney stones. Follow these instructions at home: Medicines ??? Take acgk-guk-itjpaxe and prescription medicines only as told by your doctor. ??? Ask your doctor if the medicine prescribed to you requires you to avoid driving or using machinery. Eating and drinking ??? Drink enough fluid to keep your pee pale yellow. ? You may be told to drink at least 8?10 glasses of water each day. This will help you pass the stone. ??? If told by your doctor, change your diet. You may be told to: ? Limit how much salt you eat. ? Eat more fruits and vegetables. ? Limit how much meat, poultry, fish, and eggs you eat. ??? Follow instructions from your doctor about what you may eat and drink. General instructions ??? Collect pee samples as told by your doctor. You may need to collect a pee sample: ? 24 hours after a stone comes out. ? 8?12 weeks after a stone comes out, and every 6?12 months after that. ??? Strain your pee every time you pee. Use the strainer that your doctor recommends. ??? Do not throw out the stone. Keep it so that it can be tested by your doctor. ??? Keep all follow-up visits. You may need X-rays and ultrasounds to make sure the stone has come out. How is this prevented? To prevent another kidney stone: ??? Drink enough fluid to keep your pee pale yellow. This is the best way to prevent kidney stones. ??? Eat healthy foods. ??? Avoid certain foods as told by your doctor. You may be told to eat less protein. ??? Stay at a healthy weight. Where to find more information ??? National Kidney Foundation (NKF): kidney.org ??? [employer] (UCF): urologyhealth.org Contact a doctor if: ??? You have pain that gets worse or does not get better with medicine. Get help right away if: ??? You have a fever or chills. ??? You get very bad pain. ??? You get new pain in your belly. ??? You faint. ??? You cannot pee. This information is not intended to replace advice given to you by your health care provider. Make sure you discuss any questions you have with your health care provider. Document Revised: 12/13/2022 Document Reviewed: 12/13/2022 [employer] Patient Education ? [address] [place] 09-01-2024 History of Present illness Narrative* Rajesh Mercer MD - 09/01/2024 11:00 AM EDT Images from the original note were not included. HPI surgical clearance Additional comments: [place]02[place] [facility] [place], left ESWL Results Additional comments: PFT and echo and lab Med Refill Additional comments: Albuterol MDI--tsering chavez Last edited by Miriam Nina LPN on 09/01/2024 11:36 AM. Subjective Patient ID: Chloe Pickens is a 74 y.o. female who presents for surgical clearance (Pt [place] [facility] [place]SWL[place] Results (PFT and echo and lab), and Med Refill (Albuterol MDI--tsering chavez). Pt here for surg clearance and to be advised on holding blood thinner prior to surgery On abx prior to procedure as directed PAT completed and additional testing ordered last visit has been completed She needs to bring albuterol inhaler with her to [facility] so she will need a refill on that Pt requested to have A1C checked due to being sick she has had to cancel her recent endocrinology appts and would like to know what it is Med Refill Current Outpatient Medications on File Prior to Visit Medication Sig Dispense Refill albuterol (2.5 MG/3ML) 0.083% nebulizer solution Take 3 mL (2.5 mg) by nebulization every 4 (four) hours if needed for wheezing 75 mL 3 allopurinol (Zyloprim) 100 MG tablet TAKE 1 TABLET EVERY DAY 90 tablet 3 aspirin 81 MG chewable tablet Chew 1 tablet (81 mg) Daily 30 tablet 11 BD Pen Needle Janny 2nd Gen 32G X 4 MM misc USE 1 FIVE TIMES DAILY biotin 2.5 MG capsule Take 2 tablets by mouth in the morning. Blood Glucose Monitoring Suppl (Chasqui Bus Verio Flex System) w/Device kit USE TO CHECK GLUCOSE 4 TIMES DAILY carvedilol (Coreg) 12.5 MG tablet carvedilol 12.5 mg tablet cephalexin (Keflex) 500 MG capsule Take 1 capsule (500 mg) by mouth in the morning and 1 capsule (500 mg) before bedtime. Do all this for 10 days. 20 capsule 0 Eliquis 5 MG tablet TAKE 1 TABLET TWICE DAILY 180 tablet 3 fenofibrate (Tricor) 145 MG tablet TAKE 1 TABLET EVERY DAY WITH FOOD 100 tablet 3 Fluticasone Furoate-Vilanterol (Breo Ellipta) 200-25 MCG/ACT aerosol powder Inhale 1 puff in the morning. 1 each 11 furosemide (Lasix) 20 MG tablet Take 2 tablets by mouth in the morning. insulin degludec (Tresiba FlexTouch) 200 UNIT/ML injection Inject under the skin at bedtime. ipratropium (Atrovent) 0.02 % nebulizer solution INHALE 1 VIAL IN NEBULIZER 4 TIMES DAILY NEEDEDFOR 30 DAYS Kerendia 20 MG tablet Take [...] 1 CAPSULE EVERY DAY 90 capsule 3 Chasqui Bus Verio test strip Use one strip to check blood sugar four times a day DX:e11.69 Ozempic, 1 MG/DOSE, 4 MG/3ML solution pen-injector Inject 1 mg under the skin once a week topiramate 50 MG tablet TAKE 1 TABLET TWICE DAILY 180 tablet 3 verapamil ER (Verelan) 240 MG 24 hr capsule TAKE 1 CAPSULE EVERY MORNING 90 capsule 3 [DISCONTINUED] albuterol HFA (Ventolin HFA) 90 mcg/act inhaler Ventolin HFA 90 mcg/actuation aerosol inhaler as needed No current facility-administered medications on file prior [...] kidney failure, stage 3 (moderate) (CMS/HCC) Asthma Diabetes (CMS/HCC) HLD (hyperlipidemia) (CMS/HCC) HTN (hypertension) (CMS/HCC) Past Surgical History: Procedure Laterality Date CHOLECYSTECTOMY CHOLECYSTECTOMY 1994 DIABETES EYE EXAM KNEE SURGERY 2012 SLEEP STUDY BIPAP 16/12cm H20 TUBAL LIGATION 1985 Visit Vitals BP 130/76 Pulse 76 Ht 5' 3.25 Wt 273 lb SpO2 94% BMI 47.98 kg/m Smoking Status Never BSA 2.35 m Review of Systems Objective Physical Exam Constitutional: General: She is not in acute distress. Appearance: Normal appearance. She is well-developed. She is obese. Comments: Chronically ill appearing HENT: Head: Normocephalic and atraumatic. Eyes: General: No scleral icterus. Conjunctiva/sclera: Conjunctivae normal. Cardiovascular: Rate and Rhythm: Normal rate and regular rhythm. Heart sounds: Normal heart sounds. No murmur heard. Pulmonary: Effort: Accessory muscle usage and prolonged expiration present. No respiratory distress. Breath sounds: Normal breath sounds. No wheezing, rhonchi or rales. Skin: General: Skin is warm and dry. Neurological: General: No focal deficit present. Mental Status: She is alert and oriented to person, place, and time. Gait: Gait abnormal. Comments: Uses straight cane for ambulation Psychiatric: Behavior: Behavior normal. Comments: Irritable External Result Encounter on 08/27/2024 Component Date Value Ref Range Status B-TYPE NATRIURETIC PEPTIDE 08/27/2024 15.0 5 - 100 pg/mL Final Assessment/Plan Diagnoses and all orders for this visit: Preoperative clearance - The patient was interviewed and examined. The patient's medical history and medications were reviewed. Patient is to follow guidance of surgical team regarding all medications. There are no uncontrolled medical problems at present. Patient is active and has no chest pain or dyspnea. All availablePAT was reviewed. There are no medical contraindications for surgery noted at this time, and the patient is considered low risk for the planned upcoming procedure. The patient is cleared for surgery without additional testing. - Echo looks ok, PFTs also reviewed with patient and unchanged over 6 years. She should hld Eliquisfor 3 days prior and 3 days post procedure. (7 days as requested by Urology is not standard medicalpractice for the newer OACs with shorter half-lifes. Preoperative cardiovascular examination Chronic obstructive pulmonary disease, unspecified COPD type (CMS/HCC) - albuterol HFA (Ventolin HFA) 90 mcg/act inhaler; Inhale 2 puffs every 4 (four) hours if needed for wheezing or shortness of breath Abnormal EKG - Echo looks fine. No follow-ups on file. documented in this encounterCox [id number] History of Present illness Narrative* Rajesh Mercer MD - 08/20/2024 11:30 AM EDT Images from the original note were not included. HPI SURGICAL CLEARANCE Additional comments: [place] [facility] [place] Nye [place] cystoscopy and left ESWL Med Refill Additional comments: Pt is treated with antibiotic occ for folliculitis on scalp--she could not remember the name but would like that refilled Also urology wanted pt to be on cephalexin until her surgery but now they have moved her surg date to 09/02/[address] mercer could extend this antibiotic to last until her surgery date Last edited by Miriam Nina LPN on 08/20/2024 11:47 AM. Subjective Patient ID: Chloe Pickens is a 74 y.o. female who presents for SURGICAL CLEARANCE (Pt sched 09/02/24 [place] [facility] [place] Nye for cystoscopy and left ESWL) and Med Refill (Pt is treated with antibiotic occ for folliculitis on scalp--she could not remember the name but would like that refilled//Also mika fry wanted pt to be on cephalexin until her surgery but now they have moved her surg date to 09/02/[address] mercer could extend this antibiotic to last until her surgery date). 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 Blood Glucose Monitoring Suppl (Chasqui Bus Verio Flex System) w/Device kit USE TO CHECK GLUCOSE 4 TIMES DAILY carvedilol (Coreg) 12.5 MG tablet carvedilol 12.5 mg tablet Eliquis 5 MG tablet TAKE 1 TABLET TWICE DAILY 180 tablet 3 fenofibrate (Tricor) 145 MG tablet TAKE 1 TABLET EVERY DAY WITH FOOD 100 tablet 3 Fluticasone Furoate-Vilanterol (Breo Ellipta) 200-25 MCG/ACT aerosol powder Inhale 1 puff in the morning. 1 each 11 furosemide (Lasix) 20 MG tablet Take 2 tablets by mouth in the morning. insulin degludec (Tresiba FlexTouch) 200 UNIT/ML injection Inject under the skin at bedtime. ipratropium (Atrovent) 0.02 % nebulizer solution INHALE 1 VIAL IN NEBULIZER 4 TIMES DAILY NEEDEDFOR 30 DAYS Kerendia 20 MG tablet Take [...] mg under the skin once a week topiramate 50 MG tablet TAKE 1 TABLET TWICE DAILY 180 tablet 3 verapamil ER (Verelan) 240 MG 24 hr capsule TAKE 1 CAPSULE EVERY MORNING 90 capsule 3 No current facility-administered medications on file prior [...] kidney failure, stage 3 (moderate) (CMS/HCC) Asthma Diabetes ([facility]/HCC) HLD (hyperlipidemia) (CMS/HCC) HTN (hypertension) (CMS/[facility]) Past Surgical History: Procedure Laterality Date CHOLECYSTECTOMY CHOLECYSTECTOMY 1994 DIABETES EYE EXAM KNEE SURGERY 2012 SLEEP STUDY BIPAP 16/12cm H20 TUBAL LIGATION 1985 Visit Vitals BP 136/72 Pulse 84 Ht 5' 3.25 SpO2 95% BMI 47.98 kg/m Smoking Status Never BSA 2.35 m Review of Systems Objective Physical Exam Constitutional: General: She is not in acute distress. Appearance: Normal appearance. She is well-developed. She is obese. Comments: Chronically ill appearing HENT: Head: Normocephalic and atraumatic. Eyes: General: No scleral icterus. Conjunctiva/sclera: Conjunctivae normal. Cardiovascular: Rate and Rhythm: Normal rate and regular rhythm. Heart sounds: Normal heart sounds. No murmur heard. Pulmonary: Effort: Accessory muscle usage and prolonged expiration present. No respiratory distress. Breath sounds: Normal breath sounds. No wheezing, rhonchi or rales. Skin: General: Skin is warm and dry. Neurological: General: No focal deficit present. Mental Status: She is alert and oriented to person, place, and time. Gait: Gait abnormal. Comments: Uses straight cane for ambulation Psychiatric: Behavior: Behavior normal. Comments: Irritable Assessment/Plan Diagnoses and all orders for this visit: Preoperative clearance - Pulmonary Function Test; Future - She is a higher risk patient (>5% for perioperative MACE), will need preoperative testing, andmay require a Cardiology referral depending on those results. Preoperative cardiovascular examination - Echocardiogram 2D complete; Future Acute cystitis without hematuria - cephalexin (Keflex) 500 MG capsule; Take 1 capsule (500 mg) by mouth in the morning and 1 capsule(500 mg) before bedtime. Do all this for 10 days. History of pulmonary embolus (PE) - Will be fine to stop OAC (Eliquis 3days prior and 3 days post procedure with minimal risk of new event. Chronic obstructive pulmonary disease, unspecified COPD type (CMS/HCC) - Pulmonary Function Test; Future Hypercoagulable state (CMS/HCC) Shortness of breath - B-type natriuretic peptide; Future - Pulmonary Function Test; Future - Echocardiogram 2D complete; Future Abnormal EKG - B-type natriuretic peptide; Future - Echocardiogram 2D complete; Future - This office visit was spent in consultation regarding the patient's current medical problems, differential diagnoses, testing/imaging results, and treatment options. Greater than 45 minutes was spent in [id number] consultation and coordination of care. Follow up in about 2 weeks (around 09/03/2024) for Test/Lab Review, Preoperative clearance. documented in this encounterCox [id number] NotePatient Education Nephrology ESWL for Kidney Stones, Care After The following information offers guidance on how to care for yourself after your procedure. Your health care provider may also give you more specific instructions. If you have problems or questions, contact your health care provider. What can I expect after the procedure? After the procedure, it is common to have: ??? Some blood in your urine. This should only last for a few days. ??? Soreness in your back, sides, or upper abdomen for a few days. ??? Blotches or bruises on the area where the shock wave entered the skin. ??? Pain, discomfort, or nausea when pieces (fragments) of the kidney stone move through the tube that carries urine from the kidney to the bladder (ureter). Fragments may pass soon after the procedure. They may also take up to 4?8 weeks to pass. ? If you have severe pain or nausea, contact your health care provider. This may be caused by a large stone that was not broken up enough. This may mean that you need more treatment. ??? Some pain or discomfort during urination. ??? Some pain or discomfort in the lower abdomen or at the base of the penis. Follow these instructions at home: Medicines ??? Take gonw-weh-rnrxonq and prescription medicines only as told by your health care provider. ??? If you were prescribed antibiotics, take them as told by your health care provider. Do not stopusing the antibiotic even if you start to feel better. ??? Ask your health care provider if the medicine prescribed to you: ? Requires you to avoid driving or using machinery. ? Can cause constipation. You may need to take these actions to prevent or treat constipation: ? Take qewi-xqc-dgqpqbb or prescription medicines. ? Eat foods that are high in fiber, such as beans, whole grains, and fresh fruits and vegetables. ? Limit foods that are high in fat and processed sugars, such as fried or sweet foods. Eating and drinking ??? Follow instructions from your health care provider about what you may eat and drink. You may betold to: ? Reduce how much salt (sodium) you eat or drink. Check ingredients and nutrition facts on packagedfoods and drinks to see how much sodium they contain. ? Reduce how much meat you eat. ??? Drink enough fluid to keep your urine pale yellow. This can help you pass any pieces of the stone that are left. It can also prevent new stones from forming. ??? Eat plenty of fresh fruits and vegetables. ??? Eat the recommended amount of calcium for your age and gender. Ask your health care provider how much calcium you should have. Activity ??? Get plenty of rest as told by your health care provider. ??? Avoid sitting for a long time without moving. Get up to take short walks every 1?2 hours. This is important to improve blood flow and breathing. Ask for help if you feel weak or unsteady. ??? Your health care provider may tell you to lie in a certain position (postural drainage) and tapfirmly (percuss) over your kidney area to help stone fragments pass. Follow instructions as told byyour health care provider. ??? Return to your normal activities as told by your health care provider. Ask your health care provider what activities are safe for you. Most people can resume normal activities 1?2 days after the procedure. General instructions ??? If told, strain all urine through the strainer that was provided by your health care provider. ? Keep all fragments for your health care provider to see. Any stones that are found may be sent toa medical lab for examination. The stone may be as small as a grain of salt. ??? Keep all follow-up visits. This is important if you had a stent placed because it may need to stay in place for a few weeks. Ask your health care provider when the stent will be removed. Contact a health care provider if: ??? You have a fever or chills. ??? You have severe nausea that leads to persistent vomiting. ??? You have any of these urinary symptoms: ? Increased blood or blood clots in the urine. ? Urine that smells bad or unusual. ? A strong urge to urinate after emptying your bladder. ? Pain or burning with urination that does not go away. ? A continued need to urinate more often than usual. ??? You have a stent, and it comes out. Get help right away if: ??? You have severe pain in your back, sides, or upper abdomen. ??? You faint. ??? You have any of these urinary symptoms: ? Severe pain while urinating. ? More blood in your urine, or blood in your urine when you did not have any before. ? Blood clots in your urine larger than 1 inch (2.5 cm) in size. ? You pass only a small amount of urine when you urinate or are unable to pass any urine. This information is not intended to replace advice given to you by your health care provider. Make sure you discuss any questions you have with your health care provider. Document Revised: (more content not included)...[facility]02-14-2025 History of Present illness Narrative* Rajesh Mercer MD - 06/18/2024 11:30 AM EST Images from the original note were not included. HPI Follow-up Additional comments: [facility] stay admitted 06/01/24 dx: UTI,urinary retention,SIRS discharged home 06/02/24 rx for levaquin given Last edited by Miriam Nina LPN on 06/18/2024 11:34 AM. Subjective Patient ID: Chloe Pickens is a 73 y.o. female who presents for Follow-up ([facility] stay admitted 06/01/24 dx: UTI,urinary retention,SIRS discharged home 06/02/24 rx for levaquin given). Flowsheet Row Patient Outreach from 06/07/[address] [facility] with [facility] ED, Hospital or Halfway Facility Discharge? Hospital Patient has been contacted within two business days of discharge No Have two attempts been made to contact the patient within two business days of being discharged? Yes Diagnosis acute UTI, systemic inflammatory response system Discharge Date 06/02/24 Discharged To: Home Setting Discharge Hospital [facility] Engagement Call Start Time 1551 Admission [...] in the morning. Blood Glucose Monitoring Suppl (Chasqui Bus Verio Flex System) w/Device kit USE TO [...] 1 VIAL IN NEBULIZER 4 TIMES DAILY NEEDEDFOR 30 DAYS Kerendia 20 MG tablet Take 20 mg by mouth in the morning. ketoconazole (NIZOral) 2 % shampoo APPLY DIRECTED TO AFFECTED AREA OF SCALP UP TO TWO TO THREE TIMES PER WEEK, LET SIT 3 TO 5 MINUTES PRIOR TO RINSING. loperamide (Imodium) 2 MG capsule Take 1 capsule (2 mg) by mouth 4 (four) times a day as needed fordiarrhea 60 capsule 1 losartan (Cozaar) 100 MG tablet Take 1 tablet by mouth in the morning. Multiple Vitamins-Minerals (PreserVision AREDS) capsule NovoLOG FLEXPEN 100 UNIT/ML pen INJECT SUBCUTANEOUSLY UP TO 150 UNITS EVERY DAY DIRECTED. (DISCARD PEN 28 DAYS AFTER OPENING) omeprazole (PriLOSEC) [address] capsule TAKE 1 CAPSULE EVERY DAY 90 capsule 3 Chasqui Bus Verio test strip Use one strip to [...] (Breo Ellipta) 200-25 MCG/ACT aerosol powder Inhale 1puff in the morning. [DISCONTINUED] traMADol (Ultram) 50 MG tablet Take 1 tablet (50 mg) by mouth every 6 (six) hours ifneeded for severe pain 60 tablet 2 No [...] 0.55 - 1.02 mg/dL Final [facility] EGFR-AF MICRONESIAN 06/18/2024 46 (L) >=60 mL/min/1.73m 2 Final [facility] EGFR-NON AF MICRONESIAN 06/18/2024 38 (L) >=60 mL/min/1.73m 2 Final [...] Status Glucose, UA 06/18/2024 Negative Negative - 2000(110) ++++ mg/dL Final Bilirubin, UA 06/18/2024 Negative [...] O:SCHATU Isolated ANAID1 05/31/2024 [facility] A[facility] 05/31/[address] [place] [address] [id number] Final ANAID1 05/31/2024 [employer] Team Member: Nemesio Shay PhD, Phone: [phone] Final Assessment/Plan Diagnoses and all orders for this visit: 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 documented in this encounterCox [id number] History of Present illness Narrative* Kailee Nova, MALIKA - 04/22/2024 4:15 PM EST Images from the original note were not [...] the future. RTC: prn. documented in this encounterCox [id number] History of Present illness Narrative* Rajesh Mercer MD - 04/19/2024 4:15 PM EST Images from the original note were not [...] in the morning. Blood Glucose Monitoring Suppl (HouzeMeio Flex System) w/Device kit USE TO CHECK [...] 1 VIAL IN NEBULIZER 4 TIMES DAILY NEEDEDFOR 30 DAYS Kerendia 20 MG tablet Take 20 mg by mouth in the morning. ketoconazole (NIZOral) 2 % shampoo APPLY DIRECTED TO AFFECTED AREA OF SCALP UP TO TWO TO THREE TIMES PER WEEK, LET SIT 3 TO 5 MINUTES PRIOR TO RINSING. loperamide (Imodium) 2 MG capsule Take 1 capsule (2 mg) by mouth 4 (four) times a day as needed fordiarrhea 60 capsule 1 losartan (Cozaar) 100 MG tablet Take 1 tablet by mouth in the morning. Multiple Vitamins-Minerals (PreserVision AREDS) capsule NovoLOG FLEXPEN 100 UNIT/ML pen INJECT SUBCUTANEOUSLY UP TO 150 UNITS EVERY DAY DIRECTED. (DISCARD PEN 28 DAYS AFTER OPENING) omeprazole (PriLOSEC) [address] capsule TAKE 1 CAPSULE EVERY DAY 90 capsule 3 Chasqui Bus VerUncovet test strip Use one strip to check [...] Do you have a medical power of insurance attorney?: No Objective : BP 122/70 Pulse [...] on April 19, 2024 documented in this encounterCox [id number] Evaluation note* Diagnosis Onset Date Resolution Status Admit Date CKD (chronic kidney disease) stage 4, GFR 15-29 ml/min acute Decemb er 2023 3:54pm Hyperlipidemia acute April 042023 3:54pm Hypertensive chronic kidney disease with stage 1 through stage 4 chronic ki acute April 3:54pm Nephrolithiasis, uric acid acute April 13, 2024 3:54pm Type 2 diabetes mellitus wit h diabetic chronic kidney disease acute April 13, 2024 3:54pm Vitamin D deficiency acute Dece mber 2023 3:54pm [facility] Work Phone: [phone]) 388-415412-10-2024 Miscellaneous Notes* Telephone Encounter - Alison Bishop - 04/13/2024 9:44 AM EST LM that she is very concerned on the jardiance. In last 24 hours she has developed a sore on her labia. She uses [facility] in [place]. Asking if anything can be called in. Also should she stop taking the medication for now? * Telephone Encounter - Gina Bustillo MD - 04/13/2024 9:44 AM EST I recommend she stop the Jardiance until the infection has healed. She also needs to let Nephrologyknow as I believe they prescribe the Jardiance. I did send in a prescription for a topical cream for her to place on the sore. If it is not improving in the next 24-48 hours, recommend she see her PCP. * Telephone Encounter - Alison Bishop - 04/13/2024 9:44 AM EST Patient informed. documented in this encounterOur Lady of Mercy HospitalProtochips [facility] [id number] Telephone encounter Note* Telephone Encounter - Alison Bishop - 04/13/2024 9:44 AM EST LM that she is very concerned on the jardiance. In last 24 hours she has developed a sore on her labia. She uses [facility] in [place]. Asking if anything can be called in. Also should she stop taking the medication for now? [id number] Telephone encounter Note* Telephone Encounter - Gina Bustillo MD - 04/13/2024 9:44 AM EST I recommend she stop the Jardiance until the infection has healed. She also needs to let Nephrologyknow as I believe they prescribe the Jardiance. I did send in a prescription for a topical cream for her to place on the sore. If it is not improving in the next 24-48 hours, recommend she see her PCP. Differential12-10-2024 Telephone encounter Note* Telephone Encounter - Alison Bishop - 04/13/2024 9:44 AM EST Patient informed. [facility] Differential11-21-2024 History of Present illness Narrative* Kailee Nova DPM - 03/25/2024 2:30 PM EST Images from the original note were not included. HPI: Patient presents to clinic for ingrown toenail left great toe and diabetic toenail care. She has been having pain and pressure ot the left hallux for the past few days. Patient has had a history of ingrown toenails. Pt is concerned her nail is ingrown again. Pt has tenderness to the area no rednessor drainage. No other complaints. Exam: General Examination: [...] the future. RTC: prn. documented in this encounterCox [id number] History of Present illness Narrative* Gina Bustillo MD - 02/26/2024 11:45 AM EDT Images from the original note were not [...] daily. CGM reviewed, some lows in the cottrell blower and miday. Past Medical History: Diagnosis Date Diabetes mellitus ([facility]) Kidney disease Tremor Past Surgical History: Procedure [...] , Rfl: blood-glucose meter (ONETOUCH VERIO METER[place] [facility] Use daily 4 times a day DX:E11.65, [...] INJECT UNDER THE SKIN UP TO 100 UNITSDAILY DIRECTED. DISCARD PEN 28 DAYS AFTER OPENING., Disp: 90 mL, Rfl: 3 omeprazole (PriLOSEC) 20 mg capsule, omeprazole 20 mg capsule,delayed release, Disp: , Rfl: OZEMPIC 1 mg/dose (4 mg/3 mL) pen injector, Inject 1 mg under the skin every 7 days., Disp: 9 mL, Rfl: 3 pen needle, diabetic (BD ULTRA-FINE JANNY PEN NEEDLE) 32 gauge x 5/32 needle, Use to inject insulin5 times daily. PLEASE SCHEDULE APPOINTMENT, Disp: 500 [...] mouth., Disp: , Rfl: blood sugar diagnostic (Contour InnovationsUCH VERIO TEST STRIPS) strip, Use one strip [...] coma, without long-term current use of insulin ([facility]) - POCT Hemoglobin A1c - blood sugar [...] to clinic: 3 months [facility] Instructions* Patient Instructions* Gina Bustillo MD - 02/26/2024 11:45 AM EDT Reduce Tresiba to 60 units twice/day Call the office if still having low blood sugars documented in [facility]10[facility] History of Present illness Narrative* Kailee Nova DPM - 02/24/2024 2:30 PM EDT Images from the original note were not included. HPI: Patient presents to clinic for ingrown toenail left great toe and diabetic toenail care. She has been having pain and pressure ot the left hallux for the past few days. Patient has had a history of ingrown toenails. Pt is concerned her nail is ingrown again. Pt has tenderness to the area no rednessor drainage. No other complaints. Exam: General Examination: [...] the future. RTC: prn. documented in this encounterNOSSM [id number] Telephone encounter Note* Telephone Encounter - BALBIR Cunningham - 01/29/2024 3:30 PM EDT OARRS reviewed, Rx sent into patient's pharmacy. It was an initial script after a big gap of time. Had to start with 5 day supply. [id number] Miscellaneous Notes* Telephone Encounter - BALBIR Cunningham - 01/29/2024 3:30 PM EDT OARRS reviewed, Rx sent into patient's pharmacy. It was an initial script after a big gap of time. Had to start with 5 day supply. * Telephone Encounter - Vonda Mota - 01/29/2024 1:17 PM EDT Pt stated she needs a refill of tramodol (I'm not seeing it on her med list.) The last prescriptionwas only for 20. It was originally 60. She's down to 5 pills. She's using [facility] documented in this encounterCox [id number] Telephone encounter Note* Telephone Encounter - Vonda Mota - 01/29/2024 1:17 PM EDT Pt stated she needs a refill of tramodol (I'm not seeing it on her med list.) The last prescriptionwas only for 20. It was originally 60. She's down to 5 pills. She's using [id number] History of Present illness Narrative* Kailee Nova DPM - 01/26/2024 4:45 PM EDT Images from the original note were not included. HPI: Patient presents to clinic for ingrown toenail left great toe and diabetic toenail care. She has been having pain and pressure ot the left hallux for the past few days. Patient has had a history of ingrown toenails. Pt is concerned her nail is ingrown again. Pt has tenderness to the area no rednessor drainage. No other complaints. Exam: General Examination: [...] the future. RTC: prn. documented in this encounterCox [id number] History of Present illness Narrative* BALBIR Cunningham - 01/16/2024 1:00 PM EDT Images from the original note were not [...] in the morning. Blood Glucose Monitoring Suppl ([employer]as[employer] Bus Verio Flex System) w/Device kit USE TO [...] 1 VIAL IN NEBULIZER 4 TIMES DAILY NEEDEDFOR 30 DAYS Jardiance 25 MG Take 25 [...] CAPSULE BY MOUTH 4 TIMES DAILY NEEDED 60capsule 1 [DISCONTINUED] Multiple Vitamins-Minerals (PRESERVISION AREDS 2 [...] time. She will have them done at [facility]. Will notifypt of the results once received. May need [...] (CMS/HCC) The patient is seeing a medical physicist for this condition, treatment is deferred to that specialist. Correspondence from that specialist and any available testing were reviewed during today's visit. Major depressive disorder, recurrent, moderate (HCC) (CMS/HCC) This is a chronic medical condition that is stable since last assessment. No changes in treatment are suggested at this time. Vitreous hemorrhage, unspecified eye (CMS/HCC) The patient is seeing a medical physicist for this condition, treatment is deferred to that specialist. Correspondence from that specialist and any available testing were reviewed during today's visit. Follow up in about 6 weeks (around 02/27/2024) for Medicare Wellness Visit. documented in this encounterCox [id number] History of Present illness Narrative* Maggi Pena, STELLA-DIRECTOR OF MARKETING AND PROMOTIONS - 11/25/2023 11:30 AM EDT REASON FOR VISIT: Chloe Steward Mitch returns today for follow-up of diabetes. DIABETES HISTORY: Type of Diabetes: Type 2 Diabetes Duration of Diabetes: since 2000 INTERVAL HISTORY: ELIAS was August with HgA1c of 7.7%. Today's is 7.5%. Complains of a lot of hypoglycemia. Switched to Ozempic and is having a lot of nausea. Has not beenable to eat much. Trulicity has not been [...] Past Medical History: Diagnosis Date Diabetes mellitus ([facility]) Kidney disease Tremor Past Surgical History: Procedure [...] Rfl: 3 blood-glucose meter (ONETOUCH VERIO METER) [facility] Use daily 4 times a day DX:E11.65, [...] INJECT UNDER THE SKIN UP TO 100 UNITSDAILY DIRECTED. DISCARD PEN 28 DAYS AFTER OPENING., Disp: 90 mL, Rfl: 3 omeprazole (PriLOSEC) 20 mg capsule, omeprazole 20 mg capsule,delayed release, Disp: , Rfl: OZEMPIC 1 mg/dose (4 mg/3 mL) pen injector, Inject 1 mg under the skin every 7 days., Disp: 9 mL, Rfl: 3 pen needle, diabetic (BD ULTRA-FINE JANNY PEN NEEDLE) 32 gauge x 5/32 needle, Use to inject insulin5 times daily. PLEASE SCHEDULE APPOINTMENT, Disp: 500 [...] hyperglycemia, with long-term current use of insulin ([facility]) - POCT Hemoglobin A1c Hemoglobin A1c is [...] HOMER Salcedo 11/25/23 1240 documented in this encounterZ[facility]ville City Hospital06-24-2024 Miscellaneous Notes* Telephone Encounter - Alison Bishop - 10/27/2023 9:56 AM EDT LM that pharmacy cannot get the 3mg doseTrulicity. She states she talked to pharmacy, she would either need to inject 2 of the 1.5mg injections or something else. Please advise. She mentioned concernthat she missed shot last friday and recently saw retina specialist last week for eye infection that is most likely d/t complications with blood sugars. Please advise. * Telephone Encounter - HOMER Salcedo - 10/27/2023 9:56 AM EDT Please let patient know that I sent a prescription for Ozempic 1 mg weekly for her to switch to. * Telephone Encounter - Alison Bishop - 10/27/2023 9:56 AM EDT Patient informed. documented in this encounterZanesville City Hospital06-24-2024 Telephone encounter Note* Telephone Encounter - Alison Bishop - 10/27/2023 9:56 AM EDT LM that pharmacy cannot get the 3mg doseTrulicity. She states she talked to pharmacy, she would either need to inject 2 of the 1.5mg injections or something else. Please advise. She mentioned concernthat she missed shot last friday and recently saw retina specialist last week for eye infection that is most likely d/t complications with blood sugars. Please advise. [facility] Telephone encounter Note* Telephone Encounter - HOMER Salcedo - 10/27/2023 9:56 AM EDT Please let patient know that I sent a prescription for Ozempic 1 mg weekly for her to switch to. [facility] Telephone encounter Note* Telephone Encounter - Alison Bishop - 10/27/2023 9:56 AM EDT Patient informed. [facility]05-01-[facility] History of Present illness Narrative* Reyna Preston MD - 09/03/2023 2:45 PM EDT Subjective Chloe Pickens is a 73 y.o. [...] patient.Pt instructed to reapply every 2 hours. Seborrheic keratosis Scar conditions and fibrosis of skin documented in this [facility] Work Phone: 1(476) 527-909504-05-2024 History of Present illness Narrative* Maggi Cárdenas Fabian, CUSTOMER SERVICE TELLER-DIRECTOR OF MARKETING AND PROMOTIONS - 08/08/2023 1:15 PM EDT REASON FOR VISIT: Chloe Pickens returns today [...] with 0% hypoglycemia. Blood sugars drop slightly inthe afternoons and then rise in the evenings. Past Medical History: Diagnosis Date Diabetes mellitus ([facility]) Kidney disease Tremor Past Surgical History: Procedure [...] route., Disp: , Rfl: blood sugar diagnostic (Contour InnovationsUCH VERIO TEST STRIPS) strip, Use one strip to check blood sugar four times a day DX:e11.69, Disp: 400 strip, Rfl: 3 blood-glucose meter (ONETOUCH VERIO METER) [facility], Use daily 4 times a day DX:E11.65, [...] insulin pen, Inject up to 150 units aday under the skin, Disp: 72 mL, Rfl: [...] gauge x 5/32 needle, Use to inject insulin5 times daily. PLEASE SCHEDULE APPOINTMENT, Disp: 500 [...] hyperglycemia, with long-term current use of insulin ([facility]) - POCT Hemoglobin A1c Blood sugars drop [...] HOMER Salcedo 08/08/23 1411 documented in this [facility]02-27-2024 Miscellaneous Notes* Telephone Encounter - Sarah Rangel - 2023 4:40 PM EST OK to sign and send. Added note to have patient schedule appt documented in this [facility]02-27-2024 Telephone encounter Note* Telephone Encounter - Sarah Rangel - 2023 4:40 PM EST OK to sign and send. Added note to have patient schedule appt [facility]-31-2023 Evaluation note* Encounter Date Diagnosis Assessment Notes Treatment Notes Treatment Clinical Notes Feb, Dyspnea (ICD-10 - R06.00) Feb, Lymphadenopathy (ICD-10 - R59.1) Feb, Rhinitis (ICD-10 - J31.0) [employer] Other 10-30-2023 History of Present illness Narrative* Reyna Preston MD - 03/03/2023 2:30 PM EDT meSubjectreji Pickens is a 72 y.o. female who [...] Scribe Attestation By signing my name below, I, Luann Linda attest that this documentation has been prepared under the direction and in the presence of Reyna Preston MD. documented in this [facility] Work Phone: 1(775) 844-476608-15-2023 Evaluation note* Encounter Date Diagnosis Assessment Notes Treatment Notes Treatment Clinical Notes Dec, Hypertensive chronic kidney disease with stage 1 through stage 4 chronic kidney disease, or unspecified chronic kidney disease (ICD-10 - I12.9) [employer] Other 07-26-2023 Evaluation note* Encounter Date Diagnosis [...] advised her to continue to work with clearance diver for DM management. She has no evidence of proteinuria. Continue current dose of losartan for renal protection. Continue Jardiance and Kerendia Nov, Vitamin D deficiency (ICD-10 - E55.9) Her calcium and vitamin D are within the goal. Continue oral vitamin D. [employer] Other 05-02-2023 Evaluation note* Encounter Date Diagnosis Assessment Notes Treatment Notes Treatment Clinical Notes September, Dyspnea (ICD-10 - R06.00) September, Lymphadenopathy (ICD-10 - R59.1) September, Rhinitis (ICD-10 - J31.0) [employer] Other 04-27-2023 Evaluation note* Encounter Date Diagnosis [...] advised her to continue to work with clearance diver for DM management. She has no evidence of proteinuria. Continue current dose of losartan for renal protection. Continue Jardiance and Kerendia Aug, Vitamin D deficiency (ICD-10 - E55.9) Her calcium and vitamin D are within the goal. Continue oral vitamin D. [employer] Other 03-13-2023 Evaluation note* Encounter Date Diagnosis [...] advised her to continue to work with clearance diver for DM management. She has no evidence of proteinuria. Continue current dose of losartan for renal protection. Continue Jardiance and Kerendia Jul, Vitamin D deficiency (ICD-10 - E55.9) Her calcium and vitamin D are within the goal. Continue oral vitamin D. [employer] Other 01-04-2023 Evaluation note* Encounter Date Diagnosis Assessment Notes Treatment Notes Treatment Clinical Notes May, Type 2 diabetes mellitus with diabetic chronic kidney disease (ICD-10 - E11.22) [employer] Other 10-31-2022 Evaluation note* Encounter Date Diagnosis Assessment Notes Treatment Notes Treatment Clinical Notes Feb, Dyspnea (ICD-10 - R06.00) Feb, Lymphadenopathy (ICD-10 - R59.1) [employer] Other 10-20-2022 Evaluation note* Encounter Date Diagnosis [...] advised her to continue to work with clearance diver for DM management. She has no evidence of proteinuria. Continue current dose of losartan for renal protection. She will be benefit with SGLT2 inhibitors including Farxiga and Jardiance. Advised to discuss with endocrine Feb, Vitamin D deficiency (ICD-10 - E55.9) Her calcium and vitamin D are within the goal. Continue oral vitamin D. [employer] Other 06-21-2022 Evaluation note* Encounter Date Diagnosis [...] advised her to continue to work with clearance diver for DM management. She has no evidence of proteinuria. Continue current dose of losartan for renal protection Oct, Vitamin D deficiency (ICD-10 - E55.9) Her calcium and vitamin D are within the goal. Continue oral vitamin D. [employer] Other 05-31-2022 Evaluation note* Encounter Date Diagnosis Assessment Notes Treatment Notes Treatment Clinical Notes September, Dyspnea (ICD-10 - R06.00) September, Lymphadenopathy (ICD-10 - R59.1) [employer] Other 12-15-2021 Evaluation note* Encounter Date Diagnosis [...] advised her to continue to work with clearance diver for DM management. She has no evidence of proteinuria. Continue current dose of losartan for renal protection Apr, Vitamin D deficiency (ICD-10 - E55.9) Her calcium and vitamin D are within the goal. Continue oral vitamin D. [employer] Other 11-29-2021 Evaluation note* Encounter Date Diagnosis Assessment Notes Treatment Notes Treatment Clinical Notes Mar, Dyspnea (ICD-10 - R06.00) [employer] Other Evaluation + Plan note Future Appointments Appointment Date:09/02/2024 11:00:00 AM Scheduled Provider: Location:[facility] Appointment Type:Surgery FT [facility] Evaluation + Plan note Future Appointments Appointment Date:09/06/2024 11:30:00 AM Scheduled Provider:JESSICA BRISCOE MD Location:[facility] Appointment Type:URO Office Visit [facility] Evaluaznwz noteN/ADept. of Dermatology Evaluation noteNo InformationNort [employer] Other evaluation noteNo assessment information available [facility] Work Phone: Evaluation note* Diagnosis Furuncle- Primary Carbuncle and furuncle of unspecified site Melanocytic nevus, unspecified location Lentigo Other dyschromia Hemangioma of other sites Seborrheic keratosis Scar conditions and fibrosis of skin Scar condition and fibrosis of skin Personal history of malignant melanoma of skin documented in this encounter [facility] Work Phone: Evaluation note* Diagnosis Onset Date Resolution Status CKD (chronic kidney disease) stage 4, GFR 15-29 ml/min acute Hyperlipidemia acute [id number] acute Nephrolithiasis, uric acid a cute Type 2 diabetes mellitus wit h diabetic chronic kidney disease acute Vitamin D deficiency acute [facility] Work Phone: Evaluation note* Diagnosis Fissure [...] fibrosis of skin documented in this encounter [facility] Work Phone: Evaluation note* Diagnosis Onset Date Resolution Status Chronic kidney disease, stage 3 unspecified acute CKD (chronic kidney disease) stage 4, GFR 15-29 ml/min acute Hyperlipidemia acute [id number] acute Nephrolithiasis, uric acid a cute Type 2 diabetes mellitus wit h diabetic chronic kidney disease [facility] Work Phone: Evaluation note* Diagnosis Ingrown toenail- Primary Ingrowing nail Left foot pain Pain in soft tissues of limb documented in this encounter [facility]* Diagnosis Primary osteoarthritis of both knees- Primary documented in this encounter [facility]* Diagnosis Ingrown toenail- Primary Ingrowing nail Left foot pain Pain in soft tissues of limb Onychomycosis Dermatophytosis of nail Type 2 diabetes mellitus without complication, without long-term current use of insulin ([facility]) documented in this encounter [facility] HealthcareEvaluation note* Diagnosis Acute pain of right knee- Primary Primary osteoarthritis of both knees Sore on scalp Diarrhea, unspecified type Morbid (severe) obesity due to excess calories (CMS/HCC) Body mass index (BMI) 50.0-59.9, adult (CMS/HCC) Chronic obstructive pulmonary disease, unspecified (CMS/HCC) Major depressive disorder, recurrent, moderate (CMS/HCC) Major depressive disorder, recurrent episode, moderate Vitreous hemorrhage, unspecified eye (CMS/[facility]) documented in this encounter [facility] HealthcareEvaluation note* Diagnosis Routine general medical examination at health care facility- Primary Routine general medical examination at a health care facility ACP (advance care planning) Other specified counseling Primary osteoarthritis of both knees Sore on scalp documented in this encounter [facility]* Diagnosis Primary osteoarthritis of both knees documented in this encounter [facility] HealthcareEvaluation note* Diagnosis Ingrown toenail- Primary Ingrowing nail Left foot pain Pain in soft tissues of limb documented in this encounter [facility] HealthcareEvaluation note* Diagnosis Type 2 diabetes mellitus with hyperglycemia, with long-term current use of insulin ([facility]) [facility] Diagnosis 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 ([facility])- Primary Chronic obstructive pulmonary disease, unspecified COPD type ([facility]) Primary osteoarthritis of both knees Presence of both artificial knee joints Vitreous hemorrhage, unspecified eye ([facility]) Malignant melanoma of left upper limb, including shoulder ([facility]) Pulmonary hypertension, unspecified ([facility]) Morbid (severe) obesity due to excess calories ([facility]) Body mass index (BMI) 45.0-49.9, adult ([facility]) Type 2 diabetes mellitus with diabetic chronic kidney disease ([facility]) Chronic kidney disease, stage 3b (HCC) ([facility]) Major depressive disorder, recurrent, moderate ([facility]) Major depressive disorder, recurrent episode, moderate documented in this encounter [facility] HealthcareEvaluation note* Diagnosis Type 2 diabetes mellitus with hyperglycemia, with long-term current use of insulin ([facility])- Primary [facility] Diagnosis Type 2 diabetes mellitus with hyperglycemia, with long-term current use of insulin ([facility]) [facility] Diagnosis Type 2 diabetes mellitus with hypoglycemia without coma, without long-term current use of insulin ([facility])- Primary [facility] Diagnosis Type 2 diabetes mellitus with hyperglycemia, with long-term current use of insulin ([facility])- Primary Primary hypertension Unspecified essential hypertension Mixed hyperlipidemia [facility] Diagnosis Type 2 diabetes mellitus with hyperglycemia, with long-term current use of insulin ([facility]) [facility] Diagnosis Type 2 diabetes mellitus with hyperglycemia, with long-term current use of insulin ([facility])- Primary Primary hypertension Unspecified essential hypertension [facility] Diagnosis Type 2 diabetes mellitus with hypoglycemia without coma, without long-term current use of insulin ([facility])- Primary Primary hypertension Unspecified essential hypertension Mixed hyperlipidemia [facility] Diagnosis Type 2 diabetes mellitus with hypoglycemia without coma, without long-term current use of insulin ([facility]) [facility]* Diagnosis Tinea cruris- Primary Dermatophytosis of groin and perianal area documented [facility]* Diagnosis Preoperative clearance- Primary Unspecified pre-operative examination Preoperative cardiovascular examination Pre-operative cardiovascular examination Acute cystitis without hematuria History of pulmonary embolus (PE) Chronic obstructive pulmonary disease, unspecified COPD type (CMS/HCC) Hypercoagulable state (CMS/HCC) Primary hypercoagulable state Shortness of breath Abnormal EKG Nonspecific abnormal electrocardiogram (ECG) (EKG) Type 2 diabetes mellitus with other specified complication, with long-term current use of insulin [facility]* Diagnosis Preoperative clearance- Primary Unspecified pre-operative examination Preoperative cardiovascular examination Pre-operative cardiovascular examination Chronic obstructive pulmonary disease, unspecified COPD type (CMS/HCC) Abnormal EKG Nonspecific abnormal electrocardiogram (ECG) (EKG) [facility]* Diagnosis Calculus of kidney- Primary Calculus of bladder Other calculus in bladder [facility]* Diagnosis Onychomycosis- Primary Dermatophytosis of nail Pain in both feet Type 2 diabetes mellitus without complication, without long-term current use of insulin [facility]* Diagnosis Calculus of kidney [facility]* Diagnosis Liver lesion- Primary Other specified disorders of liver [facility]* Diagnosis Calculus of kidney- Primary documented in this encounter [facility] general Narrative - Reported* Type Description Date [...] BLOOD CLOTS IN BOTH LUNG S 2016 [employer] Other [place] general Narrative - Reported* Type Description Date [...] BLOOD CLOTS IN BOTH LUNG S 2016 [employer] Other [facility] general Narrative - Reported* Type Description Date [...] BLOOD CLOTS IN BOTH LUNG S 2016 [employer] Other [place] general Narrative - Reported* Type Description Date [...] BLOOD CLOTS IN BOTH LUNG S 2016 [employer] Other History of Present illness Narrative* Ms. [...] any other skin lesions. She saw her Refund Clerk Dr. Kelley and underwent a biopsy of the left arm lesion which demonstrated a 0.6mm non- ulcerated, no mitoses, melanoma. Total body skin exam was not performed at that time. * Surgery 10/08/2019 - WIde excision left upper arm melanoma * Pathology - No residual neoplasm * 11/27/2020 routine follow-up. The patient continues to follow with Dr. Preston in dermatology and has had no concerning [...] than it was at my last visit. [facility] Work Phone: History of Present illness [...] any other skin lesions. She saw her Refund Clerk Dr. Kelley and underwent a biopsy of the left arm lesion which demonstrated a 0.6mm non- ulcerated, no mitoses, melanoma. Total body skin exam was not performed at that time. * Surgery 10/08/2019 - WIde excision left upper arm melanoma * Pathology - No residual neoplasm * 11/27/2020 routine follow-up. The patient continues to follow with Dr. Preston in dermatology and has had no concerning [...] than it was at my last visit. [facility] Work Phone: History of Present illness Narrative* [...] any other skin lesions. She saw her Refund Clerk Dr. Kelley and underwent a biopsy of the left arm lesion which demonstrated a 0.6mm non- ulcerated, no mitoses, melanoma. Total body skin exam was not performed at that time. * Surgery 10/08/2019 - WIde excision left upper arm melanoma * Pathology - No residual neoplasm * 06/18/2021 routine follow-up. The patient continues to follow with Dr. Preston in dermatology and has had no concerning [...] than it was at my last visit. JO[facility]due[facility] Work Phone: History of Present illness [...] any other skin lesions. She saw her Refund Clerk Dr. Kelley and underwent a biopsy of the left arm lesion which demonstrated a 0.6mm non- ulcerated, no mitoses, melanoma. Total body skin exam was not performed at that time. * Surgery 10/08/2019 - WIde excision left upper arm melanoma * Pathology - No residual neoplasm * 06/18/2021 routine follow-up. The patient continues to follow with Dr. Preston in dermatology and has had no concerning biopsies. She is being seen by a Restaurant Worker for various issues including Left arm swelling. [...] to the telephone nature of the visit [facility] Work Phone: Hospital course Narrative No data available for this section [facility] Discharge instructions No data available for this section [facility] InstructionsNot on filedocumented in this encounter [facility] on filedocumented in this encounter [facility]Not on filedocumented in this encounter [facility]Not on filedocumented in this encounter [facility]ructionsNot on filedocumented in this encounter [facility] No data available for this section [facility] Reason for referral (narrative)* Name Reason for referral NA ANGELICA Dept. of Dermatology Summary Purpose Family History [...] disease) stage 4, GFR 15-29 ml/min Hyperlipidemia [id number] Nephrolithiasis, uric acid Type 2 diabetes mellitus with diabetic chronic kidney disease Vitamin D deficiency Chief Complaint I12.9 N18.30 R60.0 N 20.0 E11.22 E55.9 RENAL 6 month follow up n18.4 e11.22 n20.0i 112.9 Reason for Visit CKD (chronic kidney disease) stage 4, GFR 15-29 ml/min Hyperlipidemia [id number] Nephrolithiasis, uric acid Type 2 diabetes mellitus with diabetic chronic kidney disease Vitamin D deficiency Chief Complaint E11.22 N20.0 E78.5 N 18.4 E55.9 RENAL 4 MONTH F/U Reason for Visit Chronic kidney disea se, stage 3 unspecified CKD (chronic kidney disease) stage 4, GFR 15-29 ml/min Hyperlipidemia [id number] Nephrolithiasis, uric acid Type 2 diabetes mellitus with diabetic chronic kidney disease Chief Complaint Admit Date I12.9 E11.22 N20.0 N18.30 E78.5 N18.4 De cember 2023 1:18pm RENAL 4 MONTH F/U April 13, 2024 3:54pm Unknown June 30, 2024 9:50pm Reason for Visit Admit Date CKD (chronic kidney disease) stage 4, GF R 15-29 ml/min April 13, 2024 3:54pm Hyperlipidemia April 13, 2024 3:54pm Hypertensive chronic kidney disease with stage 1 through stage 4 chronic ki April 13, 2024 3:54pm Nephrolithiasis, uric acid April 3:54pm Type 2 diabetes mellitus wit h diabetic chronic kidney disease April 13, 2024 3:54pm Vitamin D deficiency April 13, 2024 3:54pm Chief Complaint Admit Date Unknown June 30, 2024 9:50pm R06.02 R94.31 Z01.810 Z86.711 J44.9 Apri l 2024 1:12pm Chief Complaint Admit Date R06.02 R94.31 Z01.810 Z86.711 J44.9 Apri l 2024 1:12pm R06.02 R94.31 Z01.810 Z86.711 J44.9 Apri l 2024 7:50am RENAL 4 MONTH F/U September 28, 2024 3:54p m Reason for Visit Admit Date CKD (chronic kidney disease) stage 4, GF R 15-29 ml/min September 28, 2024 3:54pm Hyperlipidemia September 28, 2024 3:54p m Hypertensive chronic kidney disease with stage 1 through stage 4 chronic ki September 28, 2024 3:54pm Nephrolithiasis, uric acid September 28 3:54pm Type 2 diabetes mellitus with diabetic c hronic kidney disease September 28, 2024 3:54pm Vitamin D deficiency September 28, 2024 3:54 pm Reason for Referral Specialty Diagnoses / Procedures Referred By Aleshia quinn Referred To Contact Diagnoses Reyna Bernal MD [address] [facility], [address] [address] Referral ID Status Reason Start Date Expiration Date V isits Requested Visits Authorized [id number] Pending Review 1 1 Additional Source Comments INFORMATION SOURCE (unrecogn ized section and content) DATE CREATED AUTHOR 04/12/2018 [facility] DATE CREATED AUTHOR AUTHOR'S ORGANIZ ATION 10/14/2018 [facility] DATE CREATED AUTHOR AUTHOR'S ORGANIZ ATION 11/21/2019 [facility] DATE CREATED AUTHOR AUTHOR'S ORGANIZ ATION 06/21/2021 [facility] DATE CREATED AUTHOR AUTHOR'S ORGANIZ ATION 10/08/2021 [facility] DATE CREATED AUTHOR AUTHOR'S ORGANIZ ATION 09/15/2022 [facility] DATE CREATED AUTHOR AUTHOR'S ORGANIZ ATION 09/05/2023 [facility] DATE CREATED AUTHOR AUTHOR'S ORGANIZ ATION 02/28/2024 [facility] DATE CREATED AUTHOR AUTHOR'S ORGANIZ ATION 08/21/2024 [facility] DATE CREATED AUTHOR AUTHOR'S ORGANIZ ATION 09/06/2024 [facility] DATE CREATED AUTHOR AUTHOR'S ORGANIZ ATION 09/07/2024 [facility] DATE CREATED AUTHOR AUTHOR'S ORGANIZ ATION 09/17/2024 [facility] DATE CREATED AUTHOR AUTHOR'S ORGANIZ ATION 10/01/2024 [facility] DATE CREATED AUTHOR AUTHOR'S ORGANIZ ATION 10/05/2024 [facility] REASON FOR VISIT (unrecogniz ed section and content) Reason Comments Skin Check Suspicious Skin Lesion Reason Comments Skin Check 6 months Reason Onset Date Comments Med Refill 03/01/2024 Reason Comments Medicare Annual Wellness Visit Subsequen t Med Refill Bactrim ds and trama dol-- [facility] [place] Reason Comments Med Refill Reason Comments Follow-up [facility] stay admitted dx: UTI,urinary retention,SIRS discharged home 06/02/24 rx for levaquin given Reason Onset Date Comments Med Refill 2023 Reason Comments Diabetes Mellitus Reason Comments Diabetes Reason Comments Med Change Request Reason Comments SURGICAL CLEARANCE Pt sched 09/02/24 at [facility] with Dr Nye for cystoscopy and left ESWL Med Refill Pt is treated with a ntibiotic occ for folliculitis on scalp--she could not remember the name but would like that refilledAlso urology wanted pt to be on cephalexin until her surgery but now they have moved her surg date to 09/02/24 she was wondering if dr mercer could extend this antibiotic to last until her surgery date Reason Comments surgical clearance Pt sched 09/02/24 at [facility] for cystoscopy, left ESWL Results PFT and echo and lab Med Refill Albuterol MDI--[facility] [place] Reason Comments New Patient Hospital inpatient s alayna and found the stones. Was at [facility] [address] Specialty Diagnoses / Procedures Referred By Aleshia t Referred To Contact CT IMAGING Diagnoses Calculus of kidney Procedures CT FLANK WO IVCON CT ABD & PELVIS [place] [address] [place] [place] [id number] Phone: tel: fax: [place] [id number] Referral ID Status Reason Start Date Expiration Date V isits Requested Visits Authorized [id number] Closed Auto-Generate d Referral 09/13/2024 10/13/2025 1 1 Reason Comments Follow Up Care Teams (unrecognized sec tion and content) Team Status: Active Member Role Status Andrade Mercer II MD Primary Care Provider Active Team Status: Inactive Member Role Status Andrade Mercer II MD Primary Care Provid er, Attending Provider Active Start: August 27, 2024 End: August 27, 2024 Team Status: Active Member Role Status Andrade Mercer II MD Primary Care Provid er, Other Provider Active Start: August 30, 2024 Qamar Rowan MD Attending Provider Active Start: August 30, 2024 Team Status: Inactive Member Role Status Andrade Mercer II MD Primary Care Provider Active Start: September 28, 2024 End: September 28, 2024 Dilan Nguyễn MD Attending Provider Active Start : September 28, 2024 End: September 28, 2024 Team Status: Active Member Role Status Andrade Mercer II MD Primary Care Provider Active Start: May 31, 2024 Duke Tate DO Attending Provider Active Sta rt: May 31, 2024 Team Status: Inactive Member Role Status Andrade Mercer II MD Primary Care Provider Active Start: June 30, 2024 End: June 30, 2024 Sophia Contreras PA-C Attending Provider Active Start: June 30, 2024 End: June 30, 2024 Team Status: Active Member Role Status Andraed Mercer II MD Primary Care Provider Active Start: 2024 End: July 03, 2024 Duke Tate DO Attending Provider Active Sta rt: 2024 End: July 03, 2024 Sanjana Walden DO Referring Provider Active Star t: 2024 End: July 03, 2024 Team Status: Inactive Member Role Status Andrade Mercer II MD Primary Care Provider Active Dilan Nguyễn MD Attending Provider Active Anatomy And Physiology Instructor Relationship Specialty Start Date End Date Rajesh Mercer MD [address] [place] [address] PCP - General 01/03/23 Team Status: Inactive Member Role Status Andrade Mercer II MD Primary Care Provider Active [...] July 21, 2023 End: July 21, 2023 Anatomy And Physiology Instructor Relationship Specialty Start Date End Date Rajesh Mercer MD [address] [place] [address] PCP - General 01/03/23 Team Status: Inactive [...] November 13, 2023 End: November 13, 2023 Anatomy And Physiology Instructor Relationship Specialty Start Date End Date Rajesh Mercer MD [address] [place] [address] PCP - General Internal Medicine 10/18/22 Rajesh Mercer MD [address] [place] [address] PCP - ACO Reach 07/04/23 Anatomy And Physiology Instructor Relationship Specialty Start Date End Date Rajesh Mercer MD [address] [place] [address] PCP - General Internal Medicine 10/18/22 Rajesh Mercer MD [address] [place] [address] PCP - ACO Reach 07/04/23 Anatomy And Physiology Instructor Relationship Specialty Start Date End Date Rajesh Mercer MD [address] [place] [address] PCP - General Internal Medicine 10/18/22 Rajesh Mercer MD [address] [place] [address] PCP - ACO Reach 07/04/23 Anatomy And Physiology Instructor Relationship Specialty Start Date End Date Rajesh Mercer MD [address] [place] [address] PCP - General Internal Medicine 10/18/22 Rajesh Mercer MD [address] [place] [address] PCP - ACO Reach 07/04/23 Anatomy And Physiology Instructor Relationship Specialty Start Date End Date Rajesh Mercer MD [address] [place] [address] PCP - General Internal Medicine 10/18/22 Rajesh Mercer MD [address] [place] [address] PCP - ACO Reach 07/04/23 Anatomy And Physiology Instructor Relationship Specialty Start Date End Date Rajesh Mercer MD [address] [place] [address] PCP - General Internal Medicine 10/18/22 Rajesh Mercer MD [address] [place] [address] PCP - ACO Reach 07/04/23 Anatomy And Physiology Instructor Relationship Specialty Start Date End Date Rajesh Mercer MD [address] [place] [address] PCP - General Internal Medicine 10/18/22 Rajesh Mercer MD [address] [place] [address] PCP - ACO Reach 07/04/23 Anatomy And Physiology Instructor Relationship Specialty Start Date End Date Rajesh Mercer MD [address] [place] [address] PCP - General Internal Medicine 10/18/22 Rajesh Mercer MD [address] [place] [address] PCP - ACO Reach 07/04/23 Anatomy And Physiology Instructor Relationship Specialty Start Date End Date Rajesh Mercer MD [address] [place] [address] PCP - General Internal Medicine 10/18/22 Rajesh Mercer MD [address] [place] [address] PCP - ACO Reach 07/04/23 Anatomy And Physiology Instructor Relationship Specialty Start Date End Date Rajesh Mercer MD [address] [place] [address] PCP - General Internal Medicine 10/18/22 Rajesh Mercer MD [address] [place] [address] PCP - ACO Reach 07/04/23 Anatomy And Physiology Instructor Relationship Specialty Start Date End Date Rajesh Mercer MD [address] [place] [address] PCP - General Internal Medicine 10/18/22 Rajesh Mercer MD [address] [place] [address] PCP - ACO Reach 07/04/23 Anatomy And Physiology Instructor Relationship Specialty Start Date End Date Rajesh Mercer MD [address] [place] [address] PCP - General Internal Medicine 02/03/20 Anatomy And Physiology Instructor Relationship Specialty Start Date End Date Rajesh Mercer MD [address] [place] [address] PCP - General Internal Medicine 10/18/22 Rajesh Mercer MD [address] [place] [address] PCP - ACO Reach 07/04/23 Corry Rodriguez, RN Clinical Advocate Family Medicine 06/11/24 Anatomy And Physiology Instructor Relationship Specialty Start Date End Date Rajesh Mercer MD [address] [place] [address] PCP - General Internal Medicine 10/18/22 Rajesh Mercer MD [address] [place] [address] PCP - ACO Reach 07/04/23 Corry Rodriguez, RN Clinical Advocate Family Medicine 06/11/24 Anatomy And Physiology Instructor Relationship Specialty Start Date End Date Rajesh Mercer MD [address] [place] [address] PCP - General Internal Medicine 10/18/22 Rajesh Mercer MD [address] [place] [address] PCP - ACO Reach 07/04/23 Corry Rodriguez, VENANCIO Clinical Advocate Family Medicine 06/11/24 Anatomy And Physiology Instructor Relationship Specialty Start Date End Date Rajesh Mercer MD [address] [place] [address] PCP - General Internal Medicine 02/03/20 Anatomy And Physiology Instructor Relationship Specialty Start Date End Date Rajesh Mercer MD [address] [place] [address] PCP - General Internal Medicine 02/03/20 Anatomy And Physiology Instructor Relationship Specialty Start Date End Date Rajesh Mercer MD [address] [place] [address] PCP - General Internal Medicine 02/03/20 Anatomy And Physiology Instructor Relationship Specialty Start Date End Date Rajesh Mercer MD [address] [place] [address] PCP - General Internal Medicine 02/03/20 Anatomy And Physiology Instructor Relationship Specialty Start Date End Date Rajesh Mercer MD [address] [place] [address] PCP - General Internal Medicine 02/03/20 Anatomy And Physiology Instructor Relationship Specialty Start Date End Date Rajesh Mercer MD [address] [place] [address] PCP - General Internal Medicine 10/18/22 Rajesh Mercer MD [address] [place] [address] PCP - ACO Reach 07/04/23 Corry Rodriguez, RN Clinical Advocate Family Medicine 06/11/24 Team Status: Inactive Member Role Status Dates Rajesh Mercer II MD Primary Care Provider Active Start: April 12, 2024 End: April 12, 2024 Dilan Nguyễn MD Attending Provider Active Start : April 12, 2024 End: April 12, 2024 Team Status: Inactive Member Role Status Dates Rajesh Mercer II MD Primary Care Provider Active Start: April 13, 2024 End: April 13, 2024 Dilan Nguyễn MD Attending Provider Active Start : April 13, 2024 End: April 13, 2024 Anatomy And Physiology Instructor Relationship Specialty Start Date End Date Rajesh Mercer MD [address] [facility] [address] [place] [address] PCP - General Internal Medicine 10/18/22 Rajesh Mercer MD [address] [facility] [address] [place] [address] PCP - ACO Reach 07/04/23 Eve Marti LPN 07/28/24 Anatomy And Physiology Instructor Relationship Specialty Start Date End Date Rajesh Mercer MD [address] [facility] [address] [place] [address] PCP - General Internal Medicine 10/18/22 Rajesh Mercer MD [address] [facility] [address] [place] [address] PCP - ACO Reach 07/04/23 Eve Marti LPN 07/28/24 Anatomy And Physiology Instructor Relationship Specialty Start Date End Date Rajesh Mercer MD [address] [facility] [address] [place] [address] PCP - General Internal Medicine 10/18/22 Rajesh Mercer MD [address] [place] [address] PCP - ACO Reach 07/04/23 Eve Marti LPN 07/28/24 Anatomy And Physiology Instructor Relationship Specialty Start Date End Date Rajesh Mercer MD [address] [place] [address] PCP - General Internal Medicine 10/18/22 Rajesh Mercer MD [address] [place] [address] PCP - ACO Reach 07/04/23 Eve Marti TUGBOAT OPERATOR 07/28/24 Anatomy And Physiology Instructor Relationship Specialty Start Date End Date Rajesh Mercer MD [address] [place] [address] PCP - General Internal Medicine 10/18/22 Rajesh Mercer MD [address] [place] [address] PCP - ACO Reach 07/04/[address] [facility] 07/28/24 Anatomy And Physiology Instructor Relationship Specialty Start Date End Date Rajesh Mercer MD [address] [place] [address] PCP - General Internal Medicine 10/18/22 Rajesh Mercer MD [address] [place] [address] PCP - ACO Reach 07/04/[address] [facility] 07/28/24 Goals (unrecognized section and content) Goals may be documented in a n alternate section Source Comments (unrecognize d section and content) In the event this informatio n is protected by the Federal Confidentiality of Alcohol and Drug Abuse Patient Records regulations: The Federal rules restrict any use of the information to criminally investigate or prosecute any alcohol or drug abuse patient.[facility] HospitalIn the event this information is protected by the Federal Confidentiality of Alcohol and Drug Abuse Patient Records regulations: The Federal rules restrict any use of the information to criminally investigate or prosecute any alcohol or drug abuse patient.[facility] HospitalIn the event this information is protected by the Federal Confidentiality of Alcohol and Drug Abuse Patient Records regulations: The Federal rules restrict any use of the information to criminally investigate or prosecute any alcohol or drug abuse patient.[facility] HospitalIn the event this information is protected by the Federal Confidentiality of Alcohol and Drug Abuse Patient Records regulations: The Federal rules restrict any use of the information to criminally investigate or prosecute any alcohol or drug abuse patient.[facility] HospitalIn the event this information is protected by the Federal Confidentiality of Alcohol and Drug Abuse Patient Records regulations: The Federal rules restrict any use of the information to criminally investigate or prosecute any alcohol or drug abuse patient.[facility] FOR RECORDS PERTAINING TO PATIENTS WHO ARE [...] BE BASED ON THE PRIMARY CLINICAL RECORDS. [facility] [employer] [facility]. provides no warranty or guarantee of the accuracy or completeness of information in this document.
--- NOTE | 2024-10-18 21:09 | PC.NURSE ---
Patient was 95% on room air, however she was tachypneic and states that she felt more comfortable when she was on oxygen. She is placed on 2L oxygen for comfort.
--- NOTE | 2024-10-18 21:16 | CT_ITS ---
[address] [address] Patient Name: CHLOE PICKENS MRN: [id number] date: 1950 Sex: F Assigned Patient Location: ER Current Patient Location: ER Accession/Order Number: [id number] Exam Date: 10/18/2024 22:04 Report Date: 10/18/2024 22:16 At the request of: MAGNO BUENO MD Procedure: CT abdomen pelvis wo con CT abdomen pelvis wo con 10/18/2024 9:30 PM SIGNS AND SYMPTOMS: ^fever / ?kidney stone TECHNIQUE: Multidetector ct axial images of the abdomen and pelvis were obtained without IV contrast. Multiplanar reformats were performed and reviewed to further define anatomy and possible pathology. CT was performed with one or more of the following dose reduction techniques: Automated exposure control, adjustment of the mA and/or kV according to patient size, or use of iterative reconstruction technique. COMPARISON: 07/01/2024. FINDINGS: Lower Chest: There is dependent atelectasis in the lung bases. Atherosclerotic changes are noted in the coronary arteries and thoracic aorta. ABDOMEN: Liver: There is a 3.3 cm hypoattenuating structure within the right hepatic lobe with calcification centrally. This corresponds to the previous lesion in the right hepatic lobe on MRI. Bile Ducts: Normal caliber. Gallbladder: Previously removed Pancreas: Within normal limits. Spleen: Within normal limits. Adrenals: Within normal limits. Kidneys: Nonobstructing renal stones are noted bilaterally measuring up to 1 cm in greatest dimension on the left and 3 mm in greatest dimension on the right. No hydronephrosis. Pelvis: Reproductive Organs: No pelvic masses. Ureters: Within normal limits. Bladder: There is a 5 mm stone along the posterior wall of the bladder near the right ureterovesical junction. A recently passed stone is possible. Bowel: Normal caliber. Mesenteric Lymph Nodes: No enlarged mesenteric lymph nodes. Peritoneum: No ascites or free air, no fluid collection. Vessels: Atherosclerotic changes are noted in the abdominal aorta and its branches. Retroperitoneum: Within normal limits. Abdominal Wall: There is a fat-containing periumbilical hernia. Bones: Degenerative changes are noted in the thoracolumbar spine. Degenerative changes are also noted in the hips and sacroiliac joints. CT/CT abdomen pelvis wo con IMPRESSION: No bowel obstruction or obstructive uropathy. Nonobstructing renal stones are present bilaterally as measured above. There is a 5 mm stone along the posterior wall of the bladder to the right of midline near the right ureterovesical junction which may represent a recently passed stone. No free fluid or free air. There is a 3.3 cm hypoattenuating structure within the right hepatic lobe with calcification centrally. This corresponds to the previous lesion in the right hepatic lobe on MRI. Impression dictated by: Neeraj Kathleen M.D. 10/18/2024 10:16 PM Dictation Location: [place] [address] Electronically authenticated by: [id number] Y Date: 10/18/2024 22:16
[2024-10-18 21:22] LABS: Hematocrit 42.9 % (36.0-48.0); Mean Corpuscular HGB Conc 32.6 g/dL (29.9-35.2); Mean Corpuscular Hemoglobin 29.4 pg (26.7-34.0); Mean Corpuscular Volume 89.9 fL (81.0-99.0); Platelet Count 282 10^3/uL (150-450); Red Blood Count 4.77 10^6/uL (4.20-5.40); Red Cell Distribution Width 13.9 % (11.0-15.0); White Blood Count 14.7 10^3/uL (4.0-11.0)
[2024-10-18 21:40] LABS: Alanine Aminotransferase 23 U/L (14-59); Albumin Globulin Ratio 0.8; Albumin Level 2.9 g/dL (3.4-5.0); Alkaline Phosphatase 84 U/L (46-116); Anion Gap 16.7; Aspartate Amino Transferase 15 U/L (15-37); Bilirubin Total 0.5 mg/dL (0.2-1.0); Carbon Dioxide 21.4 mmol/L (21.0-32.0); Chloride 103 mmol/L (98-107); Estimated GFR (African America 57 (>=60 mL/min/1.73m^2); Estimated GFR (Non-African Ame 47 (>=60 mL/min/1.73m^2); Globulin 3.8 g/dL; Glucose 340 mg/dL (74-106); Potassium 4.1 mmol/L (3.5-5.1); Sodium 137 mmol/L (136-145); Total Protein 6.7 g/dL (6.4-8.2)
[2024-10-18 21:41] LABS: Band Neutrophils Absolute 0.1 10^3/uL (0.0-0.3); Basophils Abs Manual 0.14 10^3/uL (0.00-0.10); Lymphocytes Absolute Manual 0.44 10^3/uL (1.20-3.80); Monocytes Absolute Manual 0.44 10^3/uL (0.30-0.80); Segmented Neut Absolute Manual 13.52 10^3/uL (1.4-6.5)
[2024-10-18] MEDS: 0.9 % SODIUM CHLORIDE 1,779 ML 593 ML IV (21:47)
[2024-10-18] MEDS: ACETAMINOPHEN 325 MG TABLET 650 MG PO (21:48)
[2024-10-18 21:52] LABS: Lactate/Lactic Acid 2.9 mmol/L (0.4-2.0)
[2024-10-18 22:49] LABS: Bilirubin Urine NEGATIVE (NEGATIVE); Blood Urine NEGATIVE (NEGATIVE); Clarity Urine CLEAR (CLEAR); Color Urine LT. YELLOW (YELLOW); Glucose Urine UA >=1000 mg/dL (NEGATIVE); Ketones Urine NEGATIVE (NEGATIVE); Leukocyte Esterase Urine NEGATIVE (NEGATIVE); Nitrite Urine NEGATIVE (NEGATIVE); Protein Urine NEGATIVE (NEG/TRACE)
[2024-10-18 22:55] LABS: Bacteria Urine NONE SEEN #/HPF (NONE SEEN); Cast Seen? NONE SEEN #/LPF (NONE SEEN); Crystals Seen? None Seen #/HPF (None Seen); Mucus Urine NONE SEEN (NONE SEEN); RBC Urine NONE SEEN #/HPF (0-2); Squamous Epithelial Cell Urine MODERATE #/LPF (NONE/RARE); Urine Culture Indicated NO; WBC Urine 0-2 #/HPF (NONE SEEN)
[2024-10-18] MEDS: CEFTRIAXONE 1,000 MG in 0.9 % SODIUM CHLORIDE 50 ML 100 MG IV (23:38)
[2024-10-19] VITALS (10 sets, daily range): BP systolic 120–164; BP diastolic 64–80; PULSE 74–87; TEMP 37.1–37.7; O2SAT 93–97; BMI 45.9
[2024-10-19 00:57] LABS: C Reactive Protein 4.26 mg/dL (<=0.50)
--- OUTSIDE RECORDS SUMMARY | 2024-10-19 01:40 | XMS_ITS | CCD ---
Author Organization [facility] Care Team Providers Care Leather Sprayer Name Role Phone RAJESH MERCER Unavailable Unavailable SERGIO, DILAN Unavailable Unavailable RAJESH MERCER Unavailable Unavailable SERGIO, DILAN Unavailable Unavailable None, No PCP Unavailable Unavailable Preston, Reyna Unavailable Unavailable LAVERNE, DR ANTHONY Admitting Unavailable LAVERNE, DR ANTHONY Attending Unavailable DR RAJESH MERCER Primary Care Unavailable Sergio, Dilan Unavailable Qamar Rowan Unavailable RACHEL Mercer Primary Care Provider [phone] MD Dilan Nguyễn Attending Provider RACHEL Mercer Primary Care Provider MD Dilan Nguyễn Attending Provider [phone] RACHEL Mercer Primary Care Provider [phone] MD Dilan Nguyễn Attending Provider Dari Carlson [...] Care Provider MD Dilan Nguyễn Attending Provider [phone] Rajesh Mercer MD Primary Care Provider REYNA PRESTON Attending Unavailable RAJESH MERCER Primary Care Unavailable REYNA PRESTON Attending Unavailable RAJESH MERCER Primary Care Unavailable RACHEL Mercer Primary Care Provider MD Dilan Nguyễn Attending Provider Rajesh Mercer MD Primary Care Provider Rajesh Mercer MD Unavailable [phone] MAGGI PENA Attending Unavailable RAJESH MERCER Referring Unavailable RAJESH MERCER Primary Care Unavailable MAGGI PENA Attending Unavailable RAJESH MERCER Referring Unavailable RAJESH MERCER Primary Care Unavailable GINA BUSTILLO Attending Unavailable RAJESH MERCER Referring Unavailable RAJESH MERCER Primary Care Unavailable Rajesh Mercer MD Primary Care Provider Michael CRAFT, Corry Unavailable Rajesh Mercer II Primary Care Provider Dilan Nguyễn MD Attending Provider Sophia Contreras PA-C Attending Provider RAJESH MERCER Primary Care Physician Figueroa PATINO Eve Unavailable Unavailable NKANSAH-AMANKRA, JESSICA Attending Unavail able NKANSAH-AMANKRA, JESSICA Attending Unavail able NKANSAH-AMANKRA, JESSICA Referring Unavail able NKANSAH-AMANKRA, JESSICA Admitting Unavail able Rajesh Mercer II Primary Care Provider [phone] Sophia Contreras PA-C Attending Provider Rajesh Mercer II Attending Provider Rajesh Mercer Attending Unavailable Rajesh Mercer Admitting [...] Unavailable Rajesh Mercer II Primary Care Provider [phone] RC, WAHIB Attending Unavailable RC, WAHIB Referring Unavailable RC, WAHIB Attending Unavailable Allergies Allergy Classification Reported Allergen(s) Allergy Type Date of Onset Reaction(s) Facility Doxycycline (2 sources) Doxycycline; Translations: [doxycycline] Drug Allergy [facility] Work Phone: (20 sources) Doxycycline; Translations: [doxycycline] Drug Allergy 7 Rash, Unknown [facility] (1 source) Propensity to adverse reactions to drug 0 [facility] (1 source) Propensity to adverse reactions to drug 0 [facility] (1 source) Doxycycline Drug Allergy 7 [facility] Repository (17 sources) cat and dog dander as a youth Propensity to adverse reactions Unknown [facility] Other (18 sources) Ragweed Propensity to adverse reactions Unknown [facility] Other (17 sources) dust as a youth Propensity to adverse reactions Unknown [facility] Other (17 sources) chocolate as a youth Propensity to adverse reactions Unknown [facility] Other (1 source) Propensity to adverse reactions to drug 0 [facility] (1 source) Propensity to adverse reactions to drug 0 [facility] (1 source) Chocolate Drug allergy Unknown [facility] Other (1 source) House dust mite Drug allergy Unknown [facility] Other (7 sources) house dust allergenic extract; Translations: [house dust] Drug Allergy 4 [facility] (7 sources) Ragweed pollen; Translations: [ragweed pollen] Allergy to substance 4 [facility] (20 sources) Lanolin; Translations: [LANOLIN] Drug Allergy 3 Unknown [facility] (1 source) Doxycycline Drug Allergy 5 [facility] Repository Medications Current Medications Medication Drug Class(es) [...] as needed Orally every 6 hrs Active [id number] 200 actuat albuterol 0.09 mg/actuat metered dose [...] ascorbic acid 226 mg / beta carotene 04229 unt / cuprous oxide 0.8 mg / [...] tablet (2 sources) Macrolide Antimicrobial Start: 0 906302 Medication azithromycin 250 mg tablet azithromycin 250 [...] Active blood-glucose meter (ONETOUC H VERIO METER) [facility] (15 sources) Start: 12-23-2022 blood-glucose meter (ONETOUCH VERIO METER) [facility] Indications: Type 2 diabetes mellitus with hypoglycemia without coma, without long-term current use of insulin ([facility]) Use daily 4 times a day DX:E11.65 1 each 12/23/2022 Active Start: 12-23-2022 blood-glucose meter (ONETOUCH VERIO METER) [facility] Indications: Type 2 diabetes mellitus with hypoglycemia without coma, without long-term current use of insulin ([facility]) Use daily 4 times a day DX:E11.65 [...] under the skin. 06/16/2020 Active Start: 01-17-2020 [id number] Medica tion dulaglutide 1.5 mg/0.5 mL subcutaneous [...] hyperglycemia, with long-term current use of insulin ([facility]) take 1 tablet by mouth in the [...] Chronic obstructive pulmonary disease, unspecified COPD type ([facility]) Inhale 1 puff in the morning. 1 [...] Status: Taking; Provider: Harpal Wells Start: 06-25-2019 [id number] Medica tion fluticasone furoate 200 mcg-vilanterol 25 [...] Daily July 21, 2023 12:00am Start: 11-11-2019 679550 Medicat ion furosemide 20 mg tablet furosemide [...] hyperglycemia, with long-term current use of insulin ([facility]) INJECT UNDER THE SKIN UP TO 100 [...] hyperglycemia, with long-term current use of insulin ([facility]) Uses up to 100 units daily 90 mL 3 07/16/2022 Active Start: 12-19-2019 [id number] Medica tion insulin aspart (U-100) 100 unit/mL [...] hyperglycemia, with long-term current use of insulin ([facility]) INJECT UP TO 150 UNITS UNDER THE SKIN EVERY DAY (DISCARD PEN 56 DAYS AFTER OPENING) 72 mL 3 11/10/2023 Active Start: 01-25-2020 4848141 Medica tion insulin degludec (U-200) 200 unit/mL [...] mL by inhalation four times daily Ipratropium [facility] Active 0.625 ML INHALATION Four times daily July 21, 2023 12:00am Start: 09-04-2022 take 1 mL by inhalat ion four times daily Ipratropium [facility] 0.02 % solution Active 0.625 ML INHALATION Four times daily July 21, 2023 12:00am take 1 [IU] by inhal ation four times daily as needed Ipratropium [facility] 0.02 % 1 unit dose Inhalation Four [...] Start: 07-09-2024 take 1 capsule by mo [facility] every six hours as needed loperamide (IMODIUM) [...] 60 capsule 1 01/16/2024 Active Start: 08-04-2021 940408 Medicat ion loperamide 2 mg capsule loperamide 2 mg capsule 2 mg 08/04/2021 Active (Outside) take 1 tablet by [facility] every six hours Loperamide HCl 2 [...] daily. 44 g 2 03/03/2023 04/02/2023 Active Gn-Mnb-Ww-Vit N-Vjsdeb-Jtjieam (Preservision Areds 2 Plus Mv) 200 mcg-15 mcg- 5 mg-1 mg capsule (6 sources) Start: 07-21-2023 take 1 capsule by mouth twice daily Ir-Qax-Ev-Vit F-Txjcxr-Gsrbrdk (Preservision Areds 2 Plus Mv) 200 mcg-15 mcg- 5 mg-1 mg capsule Active 1 CAP PO .COMPLEX July 20, 2023 11:00pm 1 cap orally bid; Start: 07-21-2023 take 1 capsule by [facility] twice daily Sq-Geu-Mu-Vit V-Auzhxa-Qyxfnxs (Preservision Areds 2 Plus Mv) 200 mcg-15 [...] hyperglycemia, with long-term current use of insulin ([facility]) INJECT 1 MG SUBCUTANEOUSLY ONCE A WEEK 9 mL 3 10/08/2024 Active Start: 10-27-2023 End: 10-08-2024 OZEMPIC 1 mg/dose (4 mg/3 mL ) pen injector Indications: Type 2 diabetes mellitus with hyperglycemia, with long-term current use of insulin ([facility]) Inject 1 mg under the skin every 7 days. 9 mL 3 10/27/2023 10/08/2024 Discontinued Start: 10-27-2023 OZEMPIC 1 mg/d ose (4 mg/3 mL) pen injector Indications: Type 2 diabetes mellitus with hyperglycemia, with long-term current use of insulin ([facility]) Inject 1 mg under the skin every 7 days. 9 mL 3 10/27/2023 Active Ozempic, 1 MG/DOSE, 4 MG/3ML solution pen-injector (20 sources) Start: 10-27-2023 inject 1 mg by subcutaneous injection every week Ozempic, 1 MG/DOSE, 4 MG/3ML solution pen-injector Inject 1 mg under the skin once a week 10/27/2023 Active primidone 250 mg oral tablet (1 source) Anti-epilept ic Agent Start: 02-08-2021 59613 Medication omeprazole 20 mg capsule,delayed release omeprazole [...] Twice daily July 21, 2023 12:00am Start: 01-26-20201997891799 Medicat ion topiramate 25 mg tablet topiramate [...] Daily July 21, 2023 12:00am Start: 06-24-2021 086554 Medicat ion verapamil ER 240 mg 24 hr capsule,extended release verapamil ER 240 mg 24 hr capsule,extended release 240 mg 06/24/2021 Active (Outside) verapamil HCl (V ERAPAMIL ORAL) Take 240 mg by mouth. Active take 1 capsule by [facility] every twenty-four hours Verapamil HCl ER [...] 28, 2024 4:04pm take 2 tablets by [facility] every twelve hours Carvedilol 12.5 MG 2 tablet Orally Twice a day for 90 day(s) Not-Taking dulaglutide (TRULICITY) 3 mg/0.5 mL pen injector (6 sources) Start: 07-28-2023 End: 08-21-2023 dulaglutide (TRULICITY) 3 mg /0.5 mL pen injector Indications: Type 2 diabetes mellitus with hyperglycemia, with long-term current use of insulin ([facility]) inject 1 syringe subcutaneously once a week 4 mL 07/28/2023 08/21/2023 Discontinued Start: 07-28-2023 dulaglutide (T RULICITY) 3 mg/0.5 mL pen injector Indications: Type 2 diabetes mellitus with hyperglycemia, with long-term current use of insulin ([facility]) inject 1 syringe subcutaneously once a week 4 mL 0 07/28/2023 Active Start: 08-19-2022 End: 07-28-2023 dulaglutide (TRULICITY) 3 mg /0.5 mL pen injector Indications: Type 2 diabetes mellitus with hyperglycemia, with long-term current use of insulin ([facility]) 3mg weekly 2 mL 11 08/19/2022 07/28/2023 Discontinued Start: 08-19-2022 dulaglutide (T RULICITY) 3 mg/0.5 mL pen injector Indications: Type 2 diabetes mellitus with hyperglycemia, with long-term current use of insulin ([facility]) 3mg weekly 2 mL 11 08/19/2022 Active [...] Status: Ordered Repeat number: 1 Start: 09-16-2020 754282 Medicat ion tramadol 50 mg tablet tramadol [...] hyperglycemia, with long-term current use of insulin ([facility]) inject 1 syringe subcutaneously once a week 8 mL 10/16/2023 10/27/2023 Discontinued Start: 10-16-2023 TRULICITY 3 mg /0.5 mL pen injector Indications: Type 2 diabetes mellitus with hyperglycemia, with long-term current use of insulin ([facility]) inject 1 syringe subcutaneously once a week 8 mL 10/16/2023 Active Start: 08-21-2023 End: 10-16-2023 TRULICITY 3 mg/0.5 mL pen in jector Indications: Type 2 diabetes mellitus with hyperglycemia, with long-term current use of insulin ([facility]) inject 1 syringe subcutaneously once a week 4 mL 08/21/2023 10/16/2023 Discontinued Start: 08-21-2023 TRULICITY 3 mg /0.5 mL pen injector Indications: Type 2 diabetes mellitus with hyperglycemia, with long-term current use of insulin ([facility]) inject 1 syringe subcutaneously once a week [...] 07-09-2022 02-27-2023 Episodic Other aftercare (1 source) prison (current) use of insulin; Translations: [prison (current) [...] CNOV Office Visit (UROLAV ) CHLOE PICKENS ([id number]) 1950 F Date Time Provider Department 10/04/24 [...] 20 mg by mouth once daily. Vit A,C,D-Xfdr-Bqjxig (PRESERVISION AREDS) 4,296 mcg-226 mg-90 mg cap [...] there are (more content not included)... Normal [facility] CNCOon 09-20-2024 CNCO Letter Text Normal [facility] CNPNon 09-19-2024 CNPN Telephone (UROLAV) CHLOE PICKENS ([id number]) 1950 F Date Time Provider Department 09/19/24 [...] Diagnosis:Liver lesion [K76.9] Order(s):MRI LIVER WO/W IVCON [[id number]] Order #: [id number] FUTURE iv contrast (will be provided with [...] mg by mouth once daily. - Vit A,C,F-Spqk-Dtcwmi (PRESERVISION AREDS) 4,296 mcg-226 mg-90 mg cap [...] Encounter Status:Closed by CHANELL TATUM on 09/19/[address] [facility] [address] FLANK WO IVCONon 09-17-19 CT FLANK WO IVCON * * *Final Report* * * DATE OF EXAM: Sep 16 2024 2:16PM [facility] 0529 - CT FLANK WO IVCON / [...] be communicated with the ordering provider via [employer] Private staff message or phone message by Imaging Support Services within 2 business days of report finalization. --END OF FINDING-- Acuity: Actionable Findings: Liver Routing Code: LV_1 Recommendation: MRI LIVER WO/W IVCON (add Dotarem in comments) TimeFrame: 4-6 weeks --END OF FINDING-- Algorithms for management of incidental imaging findings can be found on the [facility] Intranet Sharepoint site at: [email or web address] Managing%20Incidental%2 0Findi ngs%20at%20Imaging/Form s/AllItems.aspx Transcribe Date/Time: Sep 17 2024 7:51A Dictated by: ELOISA REED MD This examination was interpreted and the report reviewed and electronically signed by: ELOISA REED MD on Sep 17 2024 8:02AM EST Thank you for allowing us to participate in the care of your patient. Should there be any questions regarding this interpretation, please call [phone]. If you are unable to reach us at the number above, please feel free to contact [facility] eRadiology at [phone]. [id number] ACTIONABLE Invalid Interpretation Code [facility] CNOVon 09-13-2024 CNOV Office Visit (UROLAV ) CHLOE PICKENS ([id number]) 1950 F Date Time Provider Department 09/13/24 3:00 PM CHANELL TATUM UROLAV During your visit today, we recorded the following information about you: Chanell Tatum MD 09/13/2024 7:34 PM Signed PATIENT INFO: Chloe Pickens 74 [...] deferred to discuss options, namely URS. 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 Today the patient is accompanied by [...] to update imaging, will do this at [facility]. Discussed generalized dietary modifications for stone [...] Past Histories independently gathered by the clinical applications support specialist and the remaining scribed note accurately describes my personal service to the patient. This note was partially generated using [employer] voice recognition system. MD Rc Cuadra Wahib, [...] stay and found the stones. Was at [facility] 2024 Primary Visit Diagnosis:Calculus of kidney [N20.0] Other Visit Diagnosis:Calculus of bladder [N21.0] Order(s):CT FLANK WO IVCON [[id number]] Order #: [id number] FUTURE Prescriptions as of 09/13/2024 - allopurinol (ZYLOPRIM) 100 mg tablet Take 100 mg by mouth once daily. - Biotin 10 mg tab Take 10 mg (more content not included)... Normal [facility] CNPNon 09-07-2024 CNPN Telephone (UROLAV) CHLOE PICKENS ([id number]) 1950 F Date Time Provider Department 09/07/24 [...] Encounter Status:Closed by EVA BRAY on 09/07/24 [facility] Ambulatory Visit Summaryon 0 09-06-2024 Ambulatory Visit [...] Someone Will Contact You Regarding These Appointments [facility] External Ambulatory Referral, Urology, [facility] [place], 09/06/24 12:02:00 EDT, Kidney stones Medications [...] or concerns (more content not included)... Normal [facility] Urology Office/Clinic Noteon 09-06-2024 Urology Office/Clinic Note [...] with voice recognition artificial intelligence software, specifically [employer], [employer] and or [employer]. Substitutions may have occurred due to the [...] being anxious about sepsis recurring. -Refer to [facility] [place] -Stop Cefdinir, start Keflex 250mg qd [...] for IV contrast. 4. 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 Elevated risk [...] and that she will be referred to [facility]. She will follow-up with them for surgical intervention. Follow-up With When Contact Information WYATT CARMICHAEL, NIYAH LOPEZ Additional Instructions: Refer to [facility] Patient Education Kidney Stones, Gvpv-mu-Cpxl IZa, personally scribed for Dr. Elias on [...] thrombosis Vi (more content not included)... Normal [facility] Comment on above: Result Comment: Elec tronically Signed By: WYATT CARMICHAEL, JESSICA\.br\Date and Time Signed: 09/06/24 12:16 EDT\.br\Electronically Co-Signed By: Za Alexandra\.br\Date and Time Co-Signed: 09/06/24 12:04 EDT B-Type Natriuretic Peptideon 08-27-2024 Natriuretic peptide B (Bld) [Mass/Vol] 15.0 pg/mL Normal 5-100 [facility] Comment on above: Result Comment: PERF ORMED BY: [place] [address] PATHOLOGIST LARRY CAR OPERATOR OLIVERIO ARTHUR M.D. Performed By: #### B MACHINIST GENERAL #### [address] echo transthoracicon [facility] echo transthoracic [facility] Main [place] [address] [place] [address] Echocardiogram Signed Patient: Chloe Pickens MR#: [id number] : 1950 Acct:[id number] Age/Sex: 74 / F ADM Date: 08/27/24 Loc: Room: Type: [facility] Attending Dr: Rajesh Mercer II, MD Ordering Provider: Rajesh Mercer II, MD Date of Service: 08/27/24/ E[facility] echo transthoracic: SOB, ABN EKG, PREOP Copies to: MD Gracia Francis II, MD, [facility] BSA: 2.2 m2 BP: 275/66 mmHg HR: [...] 08/27/24 1343 Signed By: Gracia Lay MD, [facility] 08/27/24 1813 Normal [facility] Natriuretic peptide B [Mass/ Vol]on 08-27-2024 Natriuretic peptide B (Bld) [Mass/Vol] 15 pg/mL 5 - 100 pg/mL [facility] Healthcare [facility] Healthcare Natriuretic peptide B [Mass/ Vol]Ordered By: Rajesh Mercer on 08-27-2024 Natriuretic peptide B (Bld) [Mass/Vol] BNP ser/plas 5-100 [facility] COAGULATIONOrdered By: Arcelia Denton on 08-18-2024 aPTT Coag (PPP) [Time] 36.5 s Normal 25.1 - 36.5 second(s) [facility] Auto Coag Comment on above: Interpretive Data: [...] the same coagulation reagent and instrumentation as [facility]. Currently there are no coagulation studies available worldwide for children to 14 days, and no normal ranges. Heparin therapeutic range (represented by Anti-Factor Xa activity of 0.2 - 0.4 U/mL) corresponds to PTT of 56.6 - 109.0 sec. INR Coag (PPP) [Relative time] 1.01 {INR} Invalid Interpretation Code [facility] Comment on above: Interpretive Data: I NR results are specifically intended to assess patients stabilized on long-term Anticoagulation therapy suggested INR s Less Intensive Anticoagulation 2.0 3.0 Conventional Range 3.0 4.5 PT Coag (PPP) [Time] 11.3 s Normal 9.4 - 1 2.5 second(s) [facility] Comment on above: Interpretive Data: [...] the same coagulation reagent and instrumentation as [facility]. Currently there are no coagulation studies available worldwide for children to 14 days, and no normal ranges. PT & PTTon 04-16-2025 aPTT Coag (PPP) [Time] 36.5 second(s) Normal 25.1-36.5 [facility] Comment on above: Result Comment: Para meter [...] the same coagulation reagent and instrumentation as [facility]. Currently there are no coagulation studies available worldwide for children to 14 days, and no normal ranges. Heparin therapeutic range (represented by Anti-Factor Xa activity of 0.2 - 0.4 U/mL) corresponds to PTT of 56.6 - 109.0 sec. Performed By: #### 1 [id number] #### [facility] [address] [place] [address] INR Coag (PPP) [Relative time] 1.01 {INR} Invalid Interpretation Code [facility] Comment on above: Result Comment: INR results are specifically intended to assess patients stabilized on long-term Anticoagulation therapy suggested INR???s ???Less Intensive Anticoagulation??? 2.0 ??? 3.0 Conventional Range 3.0 ??? 4.5 Performed By: #### 1 [id number] #### [facility] [address] [place] [address] PT Coag (PPP) [Time] 11.3 second(s) Normal 9.4-12.5 [facility] Comment on above: Result Comment: 15 d [...] the same coagulation reagent and instrumentation as [facility]. Currently there are no coagulation studies available worldwide for children to 14 days, and no normal ranges. Performed By: #### 1 [id number] #### [facility] [address] [place] [address] XR Chest 2 Viewson XR Chest 2 [...] M.D. Transcribed by: GENARO Technologist: DAYANA Farah [facility] Urology Office/Clinic Noteon 07-09-2024 Urology Office/Clinic Note Urology Office/Clinic Note Chief Complaint er f/u HPI Staff 74 year old female new patient here for [facility] ER follow up 06/30/24-07/03/24 for bladder stone, [...] information and history for this patient from [facility]. I have reviewed and verified the staff [...] yo F new pt following up to [facility] ED visit on 06/30/24-07/03/24 for bladder stone, acute urinary retention. Hx of essential familial tremor and diabetic retinopathy. On semaglutide. Pt here with her today. 1. Kidney stones (N20.0: Calculus of kidney) CT AP wo con 07/01/24 [facility] - Nonobstructing stones in the BL calyces [...] candidate for IV cont. 5. Anticoagulated (Z79.01: prison (current) use of anticoagulants) Eliquis. Elevated risk [...] complete empt (more content not included)... Normal [facility] Comment on above: Result Comment: Elec tronically Signed By: WYATT CARMICHAEL, JESSICA\.john\Date and Time Signed: 07/09/24 15:39 EST Urine Cultureon 06-30-2024 Bacteria identified Cx Nom (U) >100,000 colonies/ml mixed bacterial skin contaminants 2 Days PERFORMED BY: [facility] [address] [place] [address] PATHOLOGIST LARRY CAR OPERATOR OLIVERIO ARTHUR M.D. Normal [facility] Comment on above: Performed By: #### R ENAL, MG, [id number], CBCNO, URIC, PTH #### [facility] [address] Urine cultureOrdered By: Minerva Contreras on 06-30-2024 Bacteria identified Cx Nom (U) Urine culture [facility] ALL MAGNESIUMon 06-18-2024 Magnesium [Mass/Vol] 1.9 mg/dL 1.8 - 2 .4 mg[facility] ([facility]MP[facility] (FOR REMOTE FH C USE)on 06-18-2024 Albumin [Mass/Vol] 3.3 g/dL Low 3.4 - 5.0 g/dL N[facility] ALBUMIN GLOBULIN RATIO 0.9 NO [facility] ALP [Catalytic activity/Vol] 49 U/L 46 - 116 U/L [facility] ALT [Catalytic activity/Vol] 18 U/L 14 - 59 U/L [facility] Anion gap [Moles/Vol] 12.6 mmol/L NO [facility] AST [Catalytic activity/Vol] 18 U/L 15 - [...] mg/dL High 0.55 - 1.02 mg/dL [facility] GFR/1.73 sq M.predicted CKD-EPI (S/P/Bld) [Vol rate/Area] 46 Low >=60 mL/min/1.73 m 2 [facility] Globulin (S) [Mass/Vol] 3.8 g/dL [facility] Glucose [Mass/Vol] 172 mg/dL High 74 - 106 mg/dL [facility] Interpretation and review of laboratory results Abnormal [facility] Potassium [Moles/Vol] 4.2 mmol/L 3.5 - 5.1 mmol/L [facility] Protein [Mass/Vol] 7.1 g/dL 6.4 - 8.2 g/dL [facility] [facility] Sodium [Moles/Vol] 137 mmol/L 136 - 145 mmol/L [facility] TBH EGFR-NON AF SWAZI 38 Low >=60 mL/min/1.73 m 2 [facility] Urea nitrogen [Mass/Vol] 29 mg/dL High 7.0 - 18.0 mg/dL [facility] Urea nitrogen/Creatinine [Mass ratio] 21.3 mg/mg [facility] No Panel Informationon 06-18 [facility] Urinalysis macro (dipstick) panel (U)on 06-18-2024 Bilirubin, UA Negative Negative - 4(70) +++ mg/dL [facility] Blood, UA Positive Negative - 50 Evens/mcL [facility] Glucose, UA Negative Negative - 2000(110) ++++ mg/dL [facility] Ketones, UA Negative Negative - 160(16) ++++ mg/dL [facility] Leukocytes, UA Trace Negative - 500+++ Therese/mcL [facility] Nitrite, UA Negative Negative - Positive [facility] pH, UA 7 5 - 9 [facility] Protein, UA Trace Negative - 2000(20) ++++ mg/dL [facility] Spec Grav, UA 1.015 1 - 1.03 [facility] Urobilinogen, UA 0.2 0.2 - 12 mg/dL [facility] Albumin [Mass/volume] in Ser um or Plasma by Bromocresol green (BCG) dye binding methoOrdered By: Dilan Nguyễn on 04-12-2024 Albumin BCG dye [Mass/Vol] Albumin [Mass/volume] in Serum or Plasma by Bromocresol green (BCG) dye binding metho 3.5-5.7 [facility] Calcium [Mass/volume] in Ser um or PlasmaOrdered By: Dilan Nguyễn on 04-12-2024 Calcium [Mass/Vol] Calcium [Mass/volume ] in Serum or Plasma 8.6-10.3 [facility] Carbon dioxide, total [Moles /volume] in Serum or PlasmaOrdered By: Dilan Nguyễn on 04-12-2024 CO2 [Moles/Vol] Carbon dioxide, tota l [Moles/volume] in Serum or Plasma 21.0-31.0 [facility] Chloride [Moles/volume] in S hayder or PlasmaOrdered By: Dilan Nguyễn on 04-12-2024 Chloride [Moles/Vol] Chloride [Moles/vol ume] in Serum or Plasma 98-107 [facility] Creatinine [Mass/volume] in Serum or PlasmaOrdered By: Dilan Nguyễn on 04-12-2024 Creatinine [Mass/Vol] Creatinine [Mass/volume] in Serum or Plasma High 0.60-1.20 [facility] Erythrocyte distribution wid th Auto (RBC) [Ratio]Ordered By: Dilan Nguyễn on 04-12-2024 Erythrocyte distribution width (RBC) [Ratio] Erythrocyte distribution width [Ratio] by Automated count 11.9-15.3 [facility] Glucose [Mass/volume] in Ser um or PlasmaOrdered By: Dilan Nguyễn on 04-12-2024 Glucose [Mass/Vol] Glucose [Mass/volume ] in Serum or Plasma High 70-100 [facility] Comment on above: ADA recommended refe rence rangeRandom Glucose Reference Range is dependent on time and content of last meal. Glucose of more than 200 mg/dL in a nonstressed, ambulatory subject supports the diagnosis of Diabetes Mellitus. Hematocrit Auto (Bld) [Volum e fraction]Ordered By: Dilan Nguyễn on 04-12-2024 Hematocrit (Bld) [Volume fraction] Hematocrit [Volume Fraction] of Blood by Automated count 34.0-46.4 [facility] Hemoglobin [Mass/volume] in BloodOrdered By: Dilan Nguyễn on 04-12-2024 Hemoglobin (Bld) [Mass/Vol] Hemoglobin [Mass/volume] in Blood 11.8-15.4 [facility] Hemogram CBC Without Diffon 12-09-2024 Erythrocyte distribution width (RBC) [Ratio] 15.1 % Normal 11.9-15.3 [facility] Comment on above: Performed By: #### R ENAL, MG, [id number], CBCNO, URIC, PTH #### [address] Hematocrit (Bld) [Volume fraction] 45.9 % Normal 34.0-46.4 [facility] Comment on above: Performed By: #### R ENAL, MG, [id number], CBCNO, URIC, PTH #### [address] Hemoglobin (Bld) [Mass/Vol] 15.3 g/dL Normal 11.8-15.4 [facility] Comment on above: Performed By: #### R ENAL, MG, [id number], CBCNO, URIC, PTH #### [address] MCH (RBC) [Entitic mass] 29.1 pg Normal 24.7-34.3 [facility] Comment on above: Performed By: #### R ENAL, MG, [id number], CBCNO, URIC, PTH #### [address] MCV (RBC) [Entitic vol] 86.9 fL Normal 80-100 [facility] Comment on above: Performed By: #### R ENAL, MG, [id number], CBCNO, URIC, PTH #### [address] Mean Corpuscular HGB Conc 33.4 g/dL Normal 32.0-35.0 [facility] Comment on above: Performed By: #### R ENAL, MG, [id number], CBCNO, URIC, PTH #### [address] Platelet mean volume (Bld) [Entitic vol] 8.6 fL Normal 6.3-10.7 [facility] Comment on above: Result Comment: PERF ORMED BY: [place] [id number] PATHOLOGIST LARRY CAR OPERATOR OLIVERIO ARTHUR M.D. Performed By: #### R ENAL, MG, [id number], CBCNO, URIC, PTH #### [facility] [address] Platelets (Bld) [#/Vol] 336 10*3/uL Normal 150-450 [facility] Comment on above: Performed By: #### R ENAL, MG, [id number], CBCNO, URIC, PTH #### [facility] [address] RBC (Bld) [#/Vol] 5.28 10*6/uL High 3.60-5.00 [facility] Comment on above: Performed By: #### R ENAL, MG, [id number], CBCNO, URIC, PTH #### [address] WBC (Bld) [#/Vol] 7.6 10*3/uL Normal 3.8-11.6 [facility] Comment on above: Performed By: #### R ENAL, MG, [id number], CBCNO, URIC, PTH #### [facility] [address] Laboratory - Chemistry and C hemistry - challengeon 04-12-2024 Albumin [Mass/Vol] 3.8 g/dL [facility] Creatinine (U) [Mass/Vol] 1.58 mg/dL [facility] GFR/1.73 sq M.predicted among non-blacks MDRD (S/P/Bld) [Vol rate/Area] 34.5 mL/min/{1.73_m2} [facility] Leukocytes [#/volume] correc cristine for nucleated erythrocytes in Blood by Automated counOrdered By: Dilan Nguyễn on 04-12-2024 WBC corrected for nucl RBC Auto (Bld) [#/Vol] Leukocytes [#/volume] corrected for nucleated erythrocytes in Blood by Automated coun 3.8-11.6 [facility] MCH Auto (RBC) [Entitic mass ]Ordered By: Dilan Nguyễn on 04-12-2024 MCH (RBC) [Entitic mass] MCH [Entitic mass] by Automated count 24.7-34.3 [facility] MCHC Auto (RBC) [Mass/Vol]Or dered By: Dilan Nguyễn on 04-12-2024 MCHC (RBC) [Mass/Vol] MCHC [Mass/volume] by Automated count 32.0-35.0 [facility] MCV Auto (RBC) [Entitic vol] Ordered By: Dilan Nguyễn on 04-12-2024 MCV (RBC) [Entitic vol] MCV [Entitic volume] by Automated count 80-100 [facility] Magnesiumon 04-12-2024 Magnesium [Mass/Vol] 2.2 mg/dL Normal 1.9-2.7 [facility] Comment on above: Performed By: #### R ENAL, MG, [id number], CBCNO, URIC, PTH #### [facility] [address] Magnesium [Mass/volume] in S hayder or PlasmaOrdered By: Dilan Nguyễn on 04-12-2024 Magnesium [Mass/Vol] Magnesium [Mass/vol ume] in Serum or Plasma 1.9-2.7 [facility] No Panel Informationon 04-12 [facility] No Panel InformationOrdered By: Dilan Nguyễn on 04-12-2024 Estimated GFR (CKD-EPI) 34.572 mL/Min [facility] Creatinine Clearance (Chem N/A [facility] Parathyrin.intact [Mass/volu me] in Serum or PlasmaOrdered By: Dilan Nguyễn on 04-12-2024 Parathyrin.intact [Mass/Vol] Parathyrin.intact [Mass/volume] in Serum or Plasma [facility] Parathyroid Hormone Intacton 04-12-2024 Parathyroid Hormone Intact 15.0 pg/mL Normal [facility] Comment on above: Result Comment: PERF ORMED BY: [facility] [address] [place] [address] PATHOLOGIST LARRY CAR OPERATOR OLIVERIO ARTHUR M.D. Performed By: #### R ENAL, MG, [id number], CBCNO, URIC, PTH #### [facility] [address] Phosphate [Mass/volume] in S hayder or PlasmaOrdered By: Dilan Nguyễn on 04-12-2024 Phosphate [Mass/Vol] Phosphate [Mass/vol ume] in Serum or Plasma 2.5-4.5 [facility] Platelet mean volume Auto (B ld) [Entitic vol]Ordered By: Dilan Nguyễn on 04-12-2024 Platelet mean volume (Bld) [Entitic vol] Platelet mean volume [Entitic volume] in Blood by Automated count 6.3-10.7 [facility] Platelets Auto (Bld) [#/Vol] Ordered By: Dilan Nguyễn on 04-12-2024 Platelets (Bld) [#/Vol] Platelets [#/volume] in Blood by Automated count 150-450 [facility] Potassium [Moles/volume] in Serum or PlasmaOrdered By: Dilan Nguyễn on 04-12-2024 Potassium [Moles/Vol] Potassium [Moles/volume] in Serum or Plasma 3.5-5.1 [facility] RBC Auto (Bld) [#/Vol]Ordere d By: Dilan Nguyễn on 04-12-2024 RBC (Bld) [#/Vol] Erythrocytes [#/volu me] in Blood by Automated count High 3.60-5.00 [facility] Renal Function Panelon 04-12 Albumin [Mass/Vol] 3.8 g/dL Normal 3.5-5.7 [facility] Comment on above: Performed By: #### R ENAL, MG, [id number], CBCNO, URIC, PTH #### [facility] [address] Anion gap [Moles/Vol] 13.0 mmol/L Normal 6.0-15.0 [facility] Comment on above: Performed By: #### R ENAL, MG, [id number], CBCNO, URIC, PTH #### [facility] [address] Calcium [Mass/Vol] 9.5 mg/dL Normal 8.6-10.3 [facility] Comment on above: Performed By: #### R ENAL, MG, [id number], CBCNO, URIC, PTH #### [facility] [address] Chloride [Moles/Vol] 103 mmol/L Normal 98-107 [facility] Comment on above: Performed By: #### R ENAL, MG, [id number], CBCNO, URIC, PTH #### [address] CO2 [Moles/Vol] 24.2 mmol/L Normal 21.0-31.0 [facility] Comment on above: Performed By: #### R ENAL, MG, [id number], CBCNO, URIC, PTH #### [address] Creatinine [Mass/Vol] 1.58 mg/dL High 0.60-1.20 [facility] Comment on above: Performed By: #### R ENAL, MG, [id number], CBCNO, URIC, PTH #### [address] Estimated GFR 34.572 mL/Min Normal [facility] Comment on above: Performed By: #### R ENAL, MG, [id number], CBCNO, URIC, PTH #### [address] Glucose [Mass/Vol] 232 mg/dL High 70-100 [facility] Comment on above: Result Comment: [place] Glucose Reference Range is dependent on time and content of last meal. Glucose of more than 200 mg/dL in a nonstressed, ambulatory subject supports the diagnosis of Diabetes Mellitus. ADA recommended reference range Performed By: #### R ENAL, MG, [id number], CBCNO, URIC, PTH #### [address] Phosphate [Mass/Vol] 4.4 mg/dL Normal 2.5-4.5 [facility] Comment on above: Performed By: #### R ENAL, MG, [id number], CBCNO, URIC, PTH #### [facility] [address] [place] [address] Potassium [Moles/Vol] 4.2 mmol/L Normal 3.5-5.1 [facility] Comment on above: Performed By: #### R ENAL, MG, [id number], CBCNO, URIC, PTH #### [address] Sodium [Moles/Vol] 136 mmol/L Normal 136-145 [facility] Comment on above: Performed By: #### R ENAL, MG, [id number], CBCNO, URIC, PTH #### [address] Urea nitrogen [Mass/Vol] 33 mg/dL High 7-25 [facility] Comment on above: Performed By: #### R ENAL, MG, [id number], CBCNO, URIC, PTH #### [address] Serum or plasma anion gap de terminationOrdered By: Dilan Sergio on 04-12-2024 Anion gap [Moles/Vol] Serum or plasma an ion gap determination 6.0-15.0 [facility] Sodium [Moles/volume] in Ser um or PlasmaOrdered By: Dilan Sergio on 04-12-2024 Sodium [Moles/Vol] Sodium [Moles/volume ] in Serum or Plasma 136-145 [facility] Urate [Mass/volume] in Serum or PlasmaOrdered By: Dilan Sergio on 04-12-2024 Urate [Mass/Vol] Urate [Mass/volume] in Serum or Plasma 2.3-6.6 [facility] Urea nitrogen [Mass/volume] in Serum or PlasmaOrdered By: Dilan Sergio on 04-12-2024 Urea nitrogen [Mass/Vol] Urea nitrogen [Mass/volume] in Serum or Plasma High 7-25 [facility] Uric Acidon 04-12-2024 Urate [Mass/Vol] 5.2 mg/dL Normal 2.3-6.6 [facility] Comment on above: Performed By: #### R ENAL, MG, [id number], CBCNO, URIC, PTH #### [facility] [address] [place] [id number] [place] Vitamin D 25 Hydroxy Totalon 04-12-2024 Vitamin D 25 Hydroxy Total 47.3 ng/mL Normal 30-100 [facility] Comment on above: Result Comment: YAZMIN MIN D STATUS 25(OH)VITAMIN D RANGE (ng/mL) Deficient <20 Insufficient 20 to <30 Sufficient 30 to 100 Reference: Mitzy Gutiérrez, Brandt CONNER, et al. Evaluation,treatment, and prevention of vitamin D deficiency; an Endocrine Society clinical practice guideline. JCEM. 2010; 96(7):1911-30. PERFORMED BY: [place] [address] PATHOLOGIST LARRY CAR OPERATOR OLIVERIO ARTHUR M.D. Performed By: #### R ENAL, MG, [id number], CBCNO, URIC, PTH #### [facility] [address] [place] [address] [facility] Vitamin D+Metabolites [Mass/ volume] in Serum or PlasmaOrdered By: Dilan Nguyễn on 04-12-2024 Vitamin D+Metabolites [Mass/Vol] Vitamin D+Metabolites [Mass/volume] in Serum or Plasma 30-100 [facility] Comment on above: VITAMIN D STATUS 25( [place])VITAMIN D RANGE (ng/mL) Deficient <20 Insufficient 20 to <30Sufficient 30 to 100Reference: Mitzy Gutiérrez, Brandt CONNER, et al. Evaluation,treatment, and prevention of vitamin D deficiency; an Endocrine Society clinical practice guideline. JCEM. 2010; 96(7):1911-30. POCT Hemoglobin A1con 2023 HbA1c (Bld) [Mass fraction] 7.6 % Abnormal 4 - 7 % [facility] Interpretation and review of laboratory results Abnormal [facility] POCT Hemoglobin A1con 2023 ADA Target < 8 Yes [facility] HbA1c (Bld) [Mass fraction] 7.5 g/dL Abnormal 4 - 7 g/dL [facility] Interpretation and review of laboratory results Abnormal [facility] Albumin [Mass/volume] in Ser um or Plasma by Bromocresol green (BCG) dye binding methoOrdered By: Dilan Nguyễn on 11-10-2023 Albumin BCG dye [Mass/Vol] 4.0 g/dL 3.5-5.7 [facility] Calcium [Mass/volume] in Ser um or PlasmaOrdered By: Dilan Nguyễn on 11-10-2023 Calcium [Mass/Vol] 9.5 mg/dL Normal 8.6-10.[address] [facility] Comment on above: Performed By: #### C BCNO, URIC, [id number], RENAL, MG #### [address] Carbon dioxide, total [Moles /volume] in Serum or PlasmaOrdered By: Dilan Nguyễn on 11-10-2023 CO2 [Moles/Vol] 27.1 mmol/L Normal 21.0-31.0 [facility] Comment on above: Performed By: #### C BCNO, URIC, [id number], RENAL, MG #### [facility] [address] Chloride [Moles/volume] in S hayder or PlasmaOrdered By: Dilan Nguyễn on 11-10-2023 Chloride [Moles/Vol] 102 mmol/L Normal 98-107 [facility] Comment on above: Performed By: #### C BCNO, URIC, [id number], RENAL, MG #### [facility] [address] Creatinine [Mass/volume] in Serum or PlasmaOrdered By: Dilan Nguyễn on 11-10-2023 Creatinine [Mass/Vol] 2.10 mg/dL High 0.60-1.20 [facility] Comment on above: Performed By: #### C BCNO, URIC, [id number], RENAL, MG #### [facility] [address] [place] [address] [place] Erythrocyte distribution wid th [Ratio] by Automated countOrdered By: Dilan Nguyễn on 11-10-2023 Erythrocyte distribution width (RBC) [Ratio] 14.8 % Normal 11.9-15.3 [facility] Comment on above: Performed By: #### C BCNO, URIC, [id number], RENAL, MG #### [facility] [address] Erythrocytes [#/volume] in B lood by Automated countOrdered By: Dilan Nguyễn on 11-10-2023 RBC (Bld) [#/Vol] 5.05 10*6/uL High 3.60-5.00 [facility] Comment on above: Performed By: #### C BCNO, URIC, [id number], RENAL, MG #### [facility] [address] [place] [address] [place] Glucose [Mass/volume] in Ser um or PlasmaOrdered By: Dilan Nguyễn on 11-10-2023 Glucose [Mass/Vol] 239 mg/dL High 70-[address] [facility] Comment on above: ADA recommended refe rence rangeRandom Glucose Reference Range is dependent on time and content of last meal. Glucose of more than 200 mg/dL in a nonstressed, ambulatory subject supports the diagnosis of Diabetes Mellitus. Result Comment: [place] om Glucose Reference Range is dependent on time and content of last meal. Glucose of more than 200 mg/dL in a nonstressed, ambulatory subject supports the diagnosis of Diabetes Mellitus. ADA recommended reference range Performed By: #### C BCNO, URIC, [id number], RENAL, MG #### [facility] [address] [place] [id number] [place] Hematocrit [Volume Fraction] of Blood by Automated countOrdered By: Dilan Nguyễn on 11-10-2023 Hematocrit (Bld) [Volume fraction] 45.1 % Normal 34.0-46.4 [facility] Comment on above: Performed By: #### C BCNO, URIC, [id number], RENAL, MG #### [facility] [address] [place] [id number] [place] Hemoglobin [Mass/volume] in BloodOrdered By: Dilan Nguyễn on 11-10-2023 Hemoglobin (Bld) [Mass/Vol] 15.0 g/dL Normal 11.8-15.4 [facility] Comment on above: Performed By: #### C BCNO, URIC, [id number], RENAL, MG #### [facility] [address] Hemogram CBC Without Diffon 11-10-2023 Mean Corpuscular HGB Conc 33.2 g/dL Normal 32.0-35.0 [facility] Comment on above: Performed By: #### C BCNO, URIC, [id number], RENAL, MG #### [facility] [address] WBC (Bld) [#/Vol] 9.1 10*3/uL Normal 3.8-11.6 [facility] Comment on above: Performed By: #### C BCNO, URIC, [id number], RENAL, MG #### [facility] [address] Leukocytes [#/volume] correc cristine for nucleated erythrocytes in Blood by Automated counOrdered By: Dilan Nguyễn on 11-10-2023 WBC corrected for nucl RBC Auto (Bld) [#/Vol] 9.1 10*3/uL 3.8-11.6 [facility] MCH [Entitic mass] by Automa cristine countOrdered By: Dilan Nguyễn on 11-10-2023 MCH (RBC) [Entitic mass] 29.7 pg Normal 24.7-34.3 [facility] Comment on above: Performed By: #### C BCNO, URIC, [id number], RENAL, MG #### [address] MCHC Auto (RBC) [Mass/Vol]Or dered By: Dilan Nguyễn on 11-10-2023 MCHC (RBC) [Mass/Vol] 33.2 g/dL 32.0-35.0 [facility] MCV [Entitic volume] by Auto mated countOrdered By: Dilan Nguyễn on 11-10-2023 MCV (RBC) [Entitic vol] 89.4 fL Normal 80-100 [facility] Comment on above: Performed By: #### C BCNO, URIC, [id number], RENAL, MG #### [address] Magnesium [Mass/volume] in S hayder or PlasmaOrdered By: Dilan Nguyễn on 11-10-2023 Magnesium [Mass/Vol] 2.2 mg/dL Normal 1.9-2.7 [facility] Comment on above: Performed By: #### C BCNO, URIC, [id number], RENAL, MG #### [address] No Panel InformationOrdered By: Dilan Nguyễn on 11-10-2023 Estimated GFR (CKD-EPI) 24.573 mL/Min [facility] Creatinine Clearance (Chem N/A [facility] Phosphate [Mass/volume] in S hayder or PlasmaOrdered By: Dilan Nguyễn on 11-10-2023 Phosphate [Mass/Vol] 4.9 mg/dL High 2.5-4.5 [facility] Comment on above: Performed By: #### C BCNO, URIC, [id number], RENAL, MG #### [address] Platelet mean volume [Entiti c volume] in Blood by Automated countOrdered By: Dilan Nguyễn on 11-10-2023 Platelet mean volume (Bld) [Entitic vol] 8.5 fL Normal 6.3-10.7 [facility] Comment on above: Result Comment: PERF ORMED BY: [place] [address] PATHOLOGIST LARRY CAR OPERATOR JACQUELINE ZAVALA M.D. Performed By: #### C BCNO, URIC, [id number], RENAL, MG #### [address] Platelets [#/volume] in Bloo d by Automated countOrdered By: Dilan Nguyễn on 11-10-2023 Platelets (Bld) [#/Vol] 350 10*3/uL Normal 150-450 [facility] Comment on above: Performed By: #### C BCNO, URIC, [id number], RENAL, MG #### [facility] [address] Potassium [Moles/volume] in Serum or PlasmaOrdered By: Dilan Nguyễn on 11-10-2023 Potassium [Moles/Vol] 4.0 mmol/L Normal 3.5-5.1 [facility] Comment on above: Performed By: #### C BCNO, URIC, [id number], RENAL, MG #### [facility] [address] Renal Function Panelon 11-09 Albumin [Mass/Vol] 4.0 g/dL Normal 3.5-5.7 [facility] Comment on above: Performed By: #### C BCNO, URIC, [id number], RENAL, MG #### [address] GFR/1.73 sq M.predicted MDRD (S/P/Bld) [Vol rate/Area] 24.573 mL/min/{1.73_m2} Normal [facility] Comment on above: Performed By: #### C BCNO, URIC, [id number], RENAL, MG #### [address] Serum or plasma anion gap de terminationOrdered By: Dilan Nguyễn on 11-10-2023 Anion gap [Moles/Vol] 11.9 mmol/L Normal 6.0-15.0 [facility] Comment on above: Performed By: #### C BCNO, URIC, [id number], RENAL, MG #### [facility] [address] Sodium [Moles/volume] in Ser um or PlasmaOrdered By: Dilan Sergio on 11-10-2023 Sodium [Moles/Vol] 137 mmol/L Normal 136-[address] [facility] Comment on above: Performed By: #### C BCNO, URIC, [id number], RENAL, MG #### [facility] [address] Urate [Mass/volume] in Serum or PlasmaOrdered By: Dilan Sergio on 11-10-2023 Urate [Mass/Vol] 4.9 mg/dL Normal 2.3-6.6 [facility] Comment on above: Performed By: #### R ENAL, MG, [id number], CBCNO, URIC, PTH #### [facility] [address] Urea nitrogen [Mass/volume] in Serum or PlasmaOrdered By: Dilan Sergio on 11-10-2023 Urea nitrogen [Mass/Vol] 46 mg/dL High 7-25 [facility] Comment on above: Performed By: #### C BCNO, URIC, [id number], RENAL, MG #### [facility] [address] [place] [address] Vitamin D 25 Hydroxy Totalon 11-10-2023 Vitamin D 25 Hydroxy Total 50.4 ng/mL Normal 30-100 [facility] Comment on above: Result Comment: [place] MIN D STATUS 25(OH)VITAMIN D RANGE (ng/mL) Deficient <20 Insufficient 20 to <30 Sufficient 30 to 100 Reference: Brittni MF,Mitzy NC, Brandt CONNER, et al. Evaluation,treatment, and prevention of vitamin D deficiency; an Endocrine Society clinical practice guideline. JCEM. 2010; 96(7):1911-30. PERFORMED BY: [place] [address] PATHOLOGIST LARRY CAR OPERATOR JACQUELINE ZAVALA M.D. Performed By: #### R ENAL, MG, [id number], CBCNO, URIC, PTH #### [facility] [address] [place], [place] [id number] [facility] Vitamin D+Metabolites [Mass/ volume] in Serum or PlasmaOrdered By: Dilan Sergio on 11-10-2023 Vitamin D+Metabolites [Mass/Vol] 50.4 ng/mL 30-100 [facility] Comment on above: VITAMIN D STATUS 25( [place])VITAMIN D RANGE (ng/mL) Deficient <20 Insufficient 20 to <30Sufficient 30 to 100Reference: Brittni MF,Mitzy [place], Brandt CONNER, et al. Evaluation,treatment, and prevention of vitamin D deficiency; an Endocrine Society clinical practice guideline. JCEM. 2010; 96(7):1911-30. POCT Hemoglobin A1con 2023 ADA Target < 8 Yes [facility] HbA1c (Bld) [Mass fraction] 7.7 g/dL Abnormal 4 - 7 g/dL [facility] Interpretation and review of laboratory results Abnormal [facility] Microalbumin/Creatinine rati o panel (U)on 08-05-2023 Albumin DL <= 20 mg/L (U) [Mass/Vol] 4 mg/dL [facility] Albumin/Creatinine DL <= 1.0 mg/L (U) [Ratio] 1.2 [facility] Creatinine (U) [Mass/Vol] 65 mg/dL [facility] Albumin [Mass/volume] in Ser um or Plasma by Bromocresol green (BCG) dye binding methoOrdered By: Dilan Nguyễn on 07-21-2023 Albumin BCG dye [Mass/Vol] 4.3 g/dL 3.5-5.7 [facility] Calcium [Mass/volume] in Ser um or PlasmaOrdered By: Dilan Nguyễn on 07-21-2023 Calcium [Mass/Vol] 9.8 mg/dL 8.6-10.[address] [facility] Carbon dioxide, total [Moles /volume] in Serum or PlasmaOrdered By: Dilan Sergio on 07-21-2023 CO2 [Moles/Vol] 29.2 mmol/L 21.0-31.0 [facility] Chloride [Moles/volume] in S hayder or PlasmaOrdered By: Dilan Sergio on 07-21-2023 Chloride [Moles/Vol] 103 mmol/L 98-107 [facility] Creatinine [Mass/volume] in Serum or PlasmaOrdered By: Dilan Sergio on 07-21-2023 Creatinine [Mass/Vol] 1.86 mg/dL 0.60-1.20 [facility] Glucose [Mass/volume] in Ser um or PlasmaOrdered By: Dilan Nguyễn on 07-21-2023 Glucose [Mass/Vol] 208 mg/dL 70-[address] [facility] Comment on above: ADA recommended refe rence rangeRandom Glucose Reference Range is dependent on time and content of last meal. Glucose of more than 200 mg/dL in a nonstressed, ambulatory subject supports the diagnosis of Diabetes Mellitus. No Panel InformationOrdered By: Dilan Nguyễn on 07-21-2023 Estimated GFR (CKD-EPI) 28.425 mL/Min [facility] Creatinine Clearance (Chem N/A [facility] Phosphate [Mass/volume] in S hayder or PlasmaOrdered By: Dilan Nguyễn on 07-21-2023 Phosphate [Mass/Vol] 4.9 mg/dL 2.5-4.5 [facility] Potassium [Moles/volume] in Serum or PlasmaOrdered By: Dilan Nguyễn on 07-21-2023 Potassium [Moles/Vol] 4.5 mmol/L 3.5-5.1 [facility] Serum or plasma anion gap de terminationOrdered By: Dilan Nguyễn on 07-21-2023 Anion gap [Moles/Vol] 11.3 mmol/L 6.0-15.0 [facility] Sodium [Moles/volume] in Ser um or PlasmaOrdered By: Dilan Nguyễn on 07-21-2023 Sodium [Moles/Vol] 139 mmol/L 136-[address] [facility] Urea nitrogen [Mass/volume] in Serum or PlasmaOrdered By: Dilan Nguyễn on 07-21-2023 Urea nitrogen [Mass/Vol] 34 mg/dL 7-25 [facility] Albumin [Mass/volume] in Ser um or Plasma by Bromocresol green (BCG) dye binding methoOrdered By: Dilan Nguyễn on 07-18-2023 Albumin BCG dye [Mass/Vol] 4.1 g/dL 3.5-5.7 [facility] Automated erythrocytes count in urine sediment (number/area)Ordered By: Dilan Nguyễn on 07-18-2023 RBC Auto (Urine sed) [#/Area] 10-19 [HPF] 0-4 [facility] Automated leukocytes count i n urine sediment (number/area)Ordered By: Dilan Nguyễn on 07-18-2023 WBC Auto (Urine sed) [#/Area] 10-19 [HPF] 0-4 [facility] Bilirubin Test strip Ql (U)O rdered By: Dilan Nguyễn on 07-18-2023 Bilirubin Ql (U) Negative Negative [facility] Calcium [Mass/volume] in Ser um or PlasmaOrdered By: Dilan Nguyễn on 07-18-2023 Calcium [Mass/Vol] 9.2 mg/dL 8.6-10.[address] [facility] Carbon dioxide, total [Moles /volume] in Serum or PlasmaOrdered By: Dilan Nguyễn on 07-18-2023 CO2 [Moles/Vol] 27.0 mmol/L 21.0-31.0 [facility] Chloride [Moles/volume] in S hayder or PlasmaOrdered By: Dilan Nguyễn on 07-18-2023 Chloride [Moles/Vol] 101 mmol/L 98-107 [facility] Color Auto (U)Ordered By: Ab halie Nguyễn on 07-18-2023 Color (U) Yellow Yellow [facility] Creatinine [Mass/volume] in Serum or PlasmaOrdered By: Dilan Nguyễn on 07-18-2023 Creatinine [Mass/Vol] 2.96 mg/dL 0.60-1.20 [facility] Creatinine [Mass/volume] in UrineOrdered By: Dilan Nguyễn on 07-18-2023 Creatinine (U) [Mass/Vol] 65.0 mg/dL 11.0-20.0 [facility] Erythrocyte distribution wid th Auto (RBC) [Ratio]Ordered By: Dilan Nguyễn on 07-18-2023 Erythrocyte distribution width (RBC) [Ratio] 15.2 % 11.9-15.3 [facility] Glucose [Mass/volume] in Ser um or PlasmaOrdered By: Dilan Nguyễn on 07-18-2023 Glucose [Mass/Vol] 101 mg/dL 70-[address] [facility] Comment on above: ADA recommended refe rence rangeRandom Glucose Reference Range is dependent on time and content of last meal. Glucose of more than 200 mg/dL in a nonstressed, ambulatory subject supports the diagnosis of Diabetes Mellitus. Hematocrit Auto (Bld) [Volum e fraction]Ordered By: Dilan Nguyễn on 07-18-2023 Hematocrit (Bld) [Volume fraction] 46.5 % 34.0-46.4 [facility] Hemoglobin [Mass/volume] in BloodOrdered By: Dilan Nguyễn on 07-18-2023 Hemoglobin (Bld) [Mass/Vol] 15.1 g/dL 11.8-15.4 [facility] Ketones Auto test strip (U) [Mass/Vol]Ordered By: Dilan Nguyễn on 07-18-2023 Ketones (U) [Mass/Vol] Negative Negative [facility] Laboratory - UrinalysisOrder ed By: Dilan Nguyễn on 07-18-2023 Hyaline casts LM Ql (Urine sed) 0-8 [LPF] 0-8 [facility] Leukocytes [#/volume] correc cristine for nucleated erythrocytes in Blood by Automated counOrdered By: Dilan Nguyễn on 07-18-2023 WBC corrected for nucl RBC Auto (Bld) [#/Vol] 9.9 10*3/uL 3.8-11.6 [facility] MCH Auto (RBC) [Entitic mass ]Ordered By: Dilan Nguyễn on 07-18-2023 MCH (RBC) [Entitic mass] 28.8 pg 24.7-34.3 [facility] MCHC Auto (RBC) [Mass/Vol]Or dered By: Dilan Nguyễn on 07-18-2023 MCHC (RBC) [Mass/Vol] 32.5 g/dL 32.0-35.0 [facility] MCV Auto (RBC) [Entitic vol] Ordered By: Dilan Nguyễn on 07-18-2023 MCV (RBC) [Entitic vol] 88.7 fL 80-100 [facility] Magnesium [Mass/volume] in S hayder or PlasmaOrdered By: Dilan Nguyễn on 07-18-2023 Magnesium [Mass/Vol] 2.3 mg/dL 1.9-2.7 [facility] Nitrite Test strip Ql (U)Ord ered By: Dilan Nguyễn on 07-18-2023 Nitrite Ql (U) Negative Negative [facility] No Panel InformationOrdered By: Dilan Nguyễn on 07-18-2023 Estimated GFR (CKD-EPI) 16.276 mL/Min [facility] Creatinine Clearance (Chem N/A [facility] Parathyrin.intact [Mass/volu me] in Serum or PlasmaOrdered By: Dilan Nguyễn on 07-18-2023 Parathyrin.intact [Mass/Vol] 47.1 pg/mL 12-88 [facility] Phosphate [Mass/volume] in S hayder or PlasmaOrdered By: Dilan Nguyễn on 07-18-2023 Phosphate [Mass/Vol] 5.2 mg/dL 2.5-4.5 [facility] Platelet mean volume Auto (B ld) [Entitic vol]Ordered By: Dilan Nguyễn on 07-18-2023 Platelet mean volume (Bld) [Entitic vol] 7.9 fL 6.3-10.7 [facility] Platelets Auto (Bld) [#/Vol] Ordered By: Dilan Nguyễn on 07-18-2023 Platelets (Bld) [#/Vol] 361 10*3/uL 150-450 [facility] Potassium [Moles/volume] in Serum or PlasmaOrdered By: Dilan Nguyễn on 07-18-2023 Potassium [Moles/Vol] 4.6 mmol/L 3.5-5.1 [facility] Protein Auto test strip (U) [Mass/Vol]Ordered By: Dilan Nguyễn on 07-18-2023 Protein (U) [Mass/Vol] Negative Negative [facility] Protein [Mass/volume] in Uri neOrdered By: Dilan Nguyễn on 07-18-2023 Protein (U) [Mass/Vol] mg/dL 0-9 [facility] RBC Auto (Bld) [#/Vol]Ordere d By: Dilan Nguyễn on 07-18-2023 RBC (Bld) [#/Vol] 5.25 10*6/uL 3.60-5.00 [facility] Serum or plasma anion gap de terminationOrdered By: Dilan Nguyễn on 07-18-2023 Anion gap [Moles/Vol] 12.6 mmol/L 6.0-15.0 [facility] Sodium [Moles/volume] in Ser um or PlasmaOrdered By: Dilan Nguyễn on 07-18-2023 Sodium [Moles/Vol] 136 mmol/L 136-[address] [facility] Specific gravity Auto test s trip (U) [Rel density]Ordered By: Dilan Nguyễn on 07-18-2023 Specific gravity (U) [Rel density] 1.015 1.001-1.030 [facility] Squamous epithelial cells de tection in urine sediment by light microscopyOrdered By: Dilan Nguyễn on 07-18-2023 Epithelial cells.squamous LM Ql (Urine sed) 3-4 [HPF] 0-2 [facility] Urate [Mass/volume] in Serum or PlasmaOrdered By: Dilan Nguyễn on 07-18-2023 Urate [Mass/Vol] 5.4 mg/dL 2.3-6.6 [facility] Urea nitrogen [Mass/volume] in Serum or PlasmaOrdered By: Dilan Nguyễn on 07-18-2023 Urea nitrogen [Mass/Vol] 43 mg/dL 7-25 [facility] Urine bacteria detection by automated methodOrdered By: Dilan Nguyễn on 07-18-2023 Bacteria Auto Ql (U) None seen None Seen [facility] Urine clarity by refractomet ry automatedOrdered By: Dilan Nguyễn on 07-18-2023 Clarity Refractometry automated (U) Clear Clear [facility] Urine culture routineOrdered By: Dilan Nguyễn on 07-18-2023 Bacteria identified Cx Nom (U) 2 Days [facility] Urine glucose measurement by automated test strip (mass/volume)Ordered By: Dilan Nguyễn on 07-18-2023 Glucose Auto test strip (U) [Mass/Vol] 500 mg/dL Normal [facility] Urine hemoglobin detection b y automated test stripOrdered By: Dilan Nguyễn on 07-18-2023 Hemoglobin Auto test strip Ql (U) Trace Negative [facility] Urine leukocyte esterase det ection by automated test stripOrdered By: Dilan Nguyễn on 07-18-2023 Leukocyte esterase Auto test strip Ql (U) 3+ Negative [facility] Urine protein/creatinine rat ioOrdered By: Dilan Nguyễn on 07-18-2023 Protein/Creatinine (U) [Ratio] TNP [facility] Comment on above: Test not performed Urobilinogen Auto test strip (U) [Mass/Vol]Ordered By: Dilan Nguyễn on 07-18-2023 Urobilinogen (U) [Mass/Vol] Normal mg/dL Normal [facility] Vitamin D+Metabolites [Mass/ volume] in Serum or PlasmaOrdered By: Dilan Nguyễn on 07-18-2023 Vitamin D+Metabolites [Mass/Vol] 47.8 ng/mL 30-100 [facility] Comment on above: VITAMIN D STATUS 25( [place])VITAMIN D RANGE (ng/mL) Deficient <20 Insufficient 20 to <30Sufficient 30 to 100Reference: Brittni MF,Mitzy NC, Brandt CONNER, et al. Evaluation,treatment, and prevention of vitamin D deficiency; an Endocrine Society clinical practice guideline. JCEM. 2010; 96(7):1911-30. pH Auto test strip (U)Ordere d By: Dilan Nguyễn on 07-18-2023 pH (U) 5.5 [pH] 5.0-9.0 [facility] Dermatopathologyon 3 Dermatopathology Name CHLOE PICKENSMars Pathologist: [...] M.D. Electronically Signed Out By GUS VIDAL MD/[facility] By the signature on this report, the individual or group listed as making the Final Interpretation/Diagnosi s certifies that they have reviewed this case. Diagnostic interpretation performed at Dermatopath Lab [address] [place] [address], [place] [id number] Microscopic Description: Microscopic examination reveals a specimen that extends into the subcutaneous fat. An area with horizontally oriented collagen and vertically oriented vessels is present. Clinical History: R/O clear margins [id number]. Excision. ([place]) Specimens Submitted As: A: SKIN, L UPPER BACK Gross Description: Received in formalin is a rosas ellipsoid piece of skin measuring [id number]. The specimen is inked and embedded in toto in three blocks. The tips are in block A1. ink/08/27/2022 [facility] Dermatopathology Laboratory [address], [facility] [address] Normal [facility] Comment on above: Performed By: #### D #### Dermatopathology Albumin [Mass/volume] in Ser um or Plasma by Bromocresol green (BCG) dye binding methoOrdered By: Dilan Nguyễn on 07-13-2022 Albumin BCG dye [Mass/Vol] 4.1 g/dL 3.5-5.7 [facility] Automated erythrocytes count in urine sediment (number/area)Ordered By: Dilan Nguyễn on 07-13-2022 RBC Auto (Urine sed) [#/Area] 0-1 [HPF] 0-4 [facility] Automated leukocytes count i n urine sediment (number/area)Ordered By: Dilan Nguyễn on 07-13-2022 WBC Auto (Urine sed) [#/Area] 10-19 [HPF] 0-4 [facility] Bilirubin Test strip Ql (U)O rdered By: Dilan Nguyễn on 07-13-2022 Bilirubin Ql (U) Negative Negative [facility] Calcium [Mass/volume] in Ser um or PlasmaOrdered By: Dilan Nguyễn on 07-13-2022 Calcium [Mass/Vol] 9.4 mg/dL 8.6-10.[address] [facility] Carbon dioxide, total [Moles /volume] in Serum or PlasmaOrdered By: Dilan Nguyễn on 07-13-2022 CO2 [Moles/Vol] 24.7 mmol/L 21.0-31.0 [facility] Chloride [Moles/volume] in S hayder or PlasmaOrdered By: Dilan Nguyễn on 07-13-2022 Chloride [Moles/Vol] 109 mmol/L 98-107 [facility] Color Auto (U)Ordered By: Ab halie Nguyễn on 07-13-2022 Color (U) Yellow Yellow [facility] Creatinine [Mass/volume] in Serum or PlasmaOrdered By: Dilan Nguyễn on 07-13-2022 Creatinine [Mass/Vol] 1.63 mg/dL 0.60-1.20 [facility] Erythrocyte distribution wid th Auto (RBC) [Ratio]Ordered By: Dilan Nguyễn on 07-13-2022 Erythrocyte distribution width (RBC) [Ratio] 14.9 % 11.9-15.3 [facility] Glucose [Mass/volume] in Ser um or PlasmaOrdered By: Dilan Nguyễn on 07-13-2022 Glucose [Mass/Vol] 76 mg/dL 74-[address] [facility] Comment on above: ADA recommended refe rence rangeRandom Glucose Reference Range is dependent on time and content of last meal. Glucose of more than 200 mg/dL in a nonstressed, ambulatory subject supports the diagnosis of Diabetes Mellitus. Hematocrit Auto (Bld) [Volum e fraction]Ordered By: Dilan Nguyễn on 07-13-2022 Hematocrit (Bld) [Volume fraction] 42.1 % 34.0-46.4 [facility] Hemoglobin [Mass/volume] in BloodOrdered By: Dilan Nguyễn on 07-13-2022 Hemoglobin (Bld) [Mass/Vol] 13.9 g/dL 11.8-15.4 [facility] Ketones Auto test strip (U) [Mass/Vol]Ordered By: Dilan Nguyễn on 07-13-2022 Ketones (U) [Mass/Vol] Negative Negative [facility] Laboratory - Chemistry and C hemistry - challengeOrdered By: Dilan Nguyễn on 07-13-2022 GFR/1.73 sq M.predicted MDRD (S/P/Bld) [Vol rate/Area] 33.511 mL/min/{1.73_m2} [facility] Laboratory - UrinalysisOrder ed By: Dilan Nguyễn on 07-13-2022 Hyaline casts LM Ql (Urine sed) None seen [LPF] 0-8 [facility] Leukocytes [#/volume] correc cristine for nucleated erythrocytes in Blood by Automated counOrdered By: Dilan Nguyễn on 07-13-2022 WBC corrected for nucl RBC Auto (Bld) [#/Vol] 10.9 10*3/uL 3.8-11.6 [facility] MCH Auto (RBC) [Entitic mass ]Ordered By: Dilan Nguyễn on 07-13-2022 MCH (RBC) [Entitic mass] 29.7 pg 24.7-34.3 [facility] MCHC Auto (RBC) [Mass/Vol]Or dered By: Dilan Nguyễn on 07-13-2022 MCHC (RBC) [Mass/Vol] 33.1 g/dL 32.0-35.0 [facility] MCV Auto (RBC) [Entitic vol] Ordered By: Dilan Nguyễn on 07-13-2022 MCV (RBC) [Entitic vol] 89.8 fL 80-100 [facility] Magnesium [Mass/volume] in S hayder or PlasmaOrdered By: Dilan Nguyễn on 07-13-2022 Magnesium [Mass/Vol] 2.1 mg/dL 1.9-2.7 [facility] Nitrite Test strip Ql (U)Ord ered By: Dilan Nguyễn on 07-13-2022 Nitrite Ql (U) Negative Negative [facility] No Panel InformationOrdered By: Dilan Nguyễn on 07-13-2022 Pharmacy Creatinine Clearance (Chem N/A [facility] Parathyrin.intact [Mass/volu me] in Serum or PlasmaOrdered By: Dilan Nguyễn on 07-13-2022 Parathyrin.intact [Mass/Vol] 38.3 pg/mL 12-88 [facility] Phosphate [Mass/volume] in S hayder or PlasmaOrdered By: Dilan Nguyễn on 07-13-2022 Phosphate [Mass/Vol] 4.1 mg/dL 3.7-7.2 [facility] Platelet mean volume Auto (B ld) [Entitic vol]Ordered By: Dilan Nguyễn on 07-13-2022 Platelet mean volume (Bld) [Entitic vol] 9.0 fL 6.3-10.7 [facility] Platelets Auto (Bld) [#/Vol] Ordered By: Dilan Nguyễn on 07-13-2022 Platelets (Bld) [#/Vol] 363 10*3/uL 150-450 [facility] Potassium [Moles/volume] in Serum or PlasmaOrdered By: Dilan Nguyễn on 07-13-2022 Potassium [Moles/Vol] 4.2 mmol/L 3.5-5.1 [facility] Protein Auto test strip (U) [Mass/Vol]Ordered By: Dilan Nguyễn on 07-13-2022 Protein (U) [Mass/Vol] Negative Negative [facility] RBC Auto (Bld) [#/Vol]Ordere d By: Dilan Nguyễn on 07-13-2022 RBC (Bld) [#/Vol] 4.69 10*6/uL 3.60-5.00 [facility] Serum or plasma anion gap de terminationOrdered By: Dilan Nguyễn on 07-13-2022 Anion gap [Moles/Vol] 11.5 mmol/L 6.0-15.0 [facility] Sodium [Moles/volume] in Ser um or PlasmaOrdered By: Dilan Nguyễn on 07-13-2022 Sodium [Moles/Vol] 141 mmol/L 136-[address] [facility] Specific gravity Auto test s trip (U) [Rel density]Ordered By: Dilan Nguyễn on 07-13-2022 Specific gravity (U) [Rel density] 1.019 1.001-1.030 [facility] Squamous epithelial cells de tection in urine sediment by light microscopyOrdered By: Dilan Nguyễn on 07-13-2022 Epithelial cells.squamous LM Ql (Urine sed) 3-4 [HPF] 0-2 [facility] Urate [Mass/volume] in Serum or PlasmaOrdered By: Dilan Nguyễn on 07-13-2022 Urate [Mass/Vol] 5.3 mg/dL 2.3-6.6 [facility] Urea nitrogen [Mass/volume] in Serum or PlasmaOrdered By: Dilan Nguyễn on 07-13-2022 Urea nitrogen [Mass/Vol] 34 mg/dL 7-25 [facility] Urine bacteria detection by automated methodOrdered By: Dilan Nguyễn on 07-13-2022 Bacteria Auto Ql (U) None seen None Seen [facility] Urine clarity by refractomet ry automatedOrdered By: Dilan Nguyễn on 07-13-2022 Clarity Refractometry automated (U) Clear Clear [facility] Urine glucose measurement by automated test strip (mass/volume)Ordered By: Dilan Nguyễn on 07-13-2022 Glucose Auto test strip (U) [Mass/Vol] >=1000 mg/dL Normal [facility] Urine hemoglobin detection b y automated test stripOrdered By: Dilan Nguyễn on 07-13-2022 Hemoglobin Auto test strip Ql (U) Negative Negative [facility] Urine leukocyte esterase det ection by automated test stripOrdered By: Dilan Nguyễn on 07-13-2022 Leukocyte esterase Auto test strip Ql (U) 2+ Negative [facility] Urobilinogen Auto test strip (U) [Mass/Vol]Ordered By: Dilan Nguyễn on 07-13-2022 Urobilinogen (U) [Mass/Vol] Normal mg/dL Normal [facility] Vitamin D+Metabolites [Mass/ volume] in Serum or PlasmaOrdered By: Dilan Nguyễn on 07-13-2022 Vitamin D+Metabolites [Mass/Vol] 48.0 ng/mL 30-100 [facility] Comment on above: VITAMIN D STATUS 25( [place])VITAMIN D RANGE (ng/mL) Deficient <20 Insufficient 20 to <30Sufficient 30 to 100Reference: Brittni BAGLEY,Mitzy [place], Brandt CONNER, et al. Evaluation,treatment, and prevention of vitamin D deficiency; an Endocrine Society clinical practice guideline. JCEM. 2010; 96(7):1911-30. pH Auto test strip (U)Ordere d By: Dilan Nguyễn on 07-13-2022 pH (U) 5.5 [pH] 5.0-9.0 [facility] Dermatopathologyon Dermatopathology Name CHLOE PICKENS Pathologist: GUS VIDAL MD Date of Procedure: 07/10/2022 Date Received: 07/11/2022 Date Reported 07/12/2022 Submitting Physician: REYNA PRESTON MD Location: [facility] Copy To/Referring/Attending: HUNTER BHAGAT MD Other [...] M.D. Electronically Signed Out By GUS VIDAL MD/[facility] By the signature on this report, the individual or group listed as making the Final Interpretation/Diagnosi s certifies that they have reviewed this case. Diagnostic interpretation performed [facility] [address] [facility] [address] Microscopic Description: A. Microscopic analysis shows an [...] Lentigo and SK. Hx MM. Shave Biopsy. ([facility] [place] Specimens Submitted As: A: SKIN, L UPPER BACK B: SKIN, L MID BACK Gross Description: A: Received in formalin is one rosas-brown piece of skin measuring [id number]. The specimen is inked and embedded in toto. B: Received in formalin is one rosas-brown piece of skin measuring [id number]. The specimen is inked and embedded in toto. dcp/07/11/2022 [facility] Dermatopathology Laboratory [address] [facility] Comment on above: Performed By: #### D #### Dermatopathology Albumin [Mass/volume] in Ser um or PlasmaOrdered By: Dilan Nguyễn on 05-13-2022 Albumin [Mass/Vol] 3.6 g/dL 3.2-5.[address] [facility] Creatinine and Glomerular fi ltration rate.predicted panel (S/P/Bld)Ordered By: Dilan Nguyễn on 05-13-2022 Creatinine [Mass/Vol] 1.77 mg/dL 0.44-1.03 [facility] Estimated glomerular filtrat ion rate (GFR) non- AmericanOrdered By: Dilan Nguyễn on 05-13-2022 GFR/1.73 sq M.predicted among non-blacks MDRD (S/P/Bld) [Vol rate/Area] 28 mL/Min [facility] Laboratory - Chemistry and C hemistry - challengeOrdered By: Dilan Nguyễn on 05-13-2022 Magnesium [Mass/Vol] 2.0 mg/dL 1.6-2.6 [facility] Magnesiumon 05-13-2022 Magnesium [Mass/Vol] 2.1493836 mg/dL Normal 1.6- 2.6 mg/dL [employer] Other No Panel InformationOrdered By: Dilan Nguyễn on 05-13-2022 Estimated GFR () 34 mL/Min [facility] Comment on above: GFR estimated refere nce range: According to KDOQI guidelines, <60 ml/min/1.73m2 is sufficient to diagnose a patient with chronic kidney disease. Pharmacy Creatinine Clearance (Chem N/A [facility] Phosphate [Mass/volume] in S hayder or PlasmaOrdered By: Dilan Nguyễn on 05-13-2022 Phosphate [Mass/Vol] 3.9 mg/dL 2.5-4.6 [facility] Renal Function Panelon 05-13 Albumin [Mass/Vol] 3.273758 g/dL Normal 3.2-5.5 g/dL [employer] Other Calcium [Mass/Vol] 9.2625624 mg/dL Normal 8.2-10 .2 mg/dL [employer] Other CO2 [Moles/Vol] 25.66910867 mmol/L Normal 22.0-3 0.0 mmol/L [employer] Other Creatinine [Mass/Vol] 1.50097106 mg/dL High 0. 44-1.03 mg/dL [employer] Other Phosphate [Mass/Vol] 3.8875268 mg/dL Normal 2.5- 4.6 mg/dL [employer] Other Potassium [Moles/Vol] 4.68247027 mmol/L Normal 3 .5-5.1 mmol/L [employer] Other Renal Function Panel 28 [employer] Other Renal Function Panel 34 [employer] Other Serum or plasma anion gap de terminationOrdered By: Dilan Nguyễn on 05-13-2022 Anion gap [Moles/Vol] 11.0 mmol/L 6.0-15.0 [facility] Serum or plasma calcium xavier urement (mass/volume)Ordered By: Dilan Nguyễn on 05-13-2022 Calcium [Mass/Vol] 9.2 mg/dL 8.2-10.[address] [facility] Serum or plasma chloride bisi surement (moles/volume)Ordered By: Dilan Nguyễn on 05-13-2022 Chloride [Moles/Vol] 105 mmol/L 95-114 [facility] Serum or plasma glucose xavier urement (mass/volume)Ordered By: Dilan Nguyễn on 05-13-2022 Glucose [Mass/Vol] 189 mg/dL 70-[address] [facility] Comment on above: ADA recommended refe rence rangeRandom Glucose Reference Range is dependent on time and content of last meal. Glucose of more than 200 mg/dL in a nonstressed, ambulatory subject supports the diagnosis of Diabetes Mellitus. Serum or plasma potassium me asurement (moles/volume)Ordered By: Dilan Nguyễn on 05-13-2022 Potassium [Moles/Vol] 4.5 mmol/L 3.5-5.1 [facility] Serum or plasma sodium measu rement (moles/volume)Ordered By: Dilan Nguyễn on 05-13-2022 Sodium [Moles/Vol] 137 mmol/L 136-[address] [facility] Serum or plasma total carbon dioxide measurement (moles/volume)Ordered By: Dilan Nguyễn on 05-13-2022 CO2 [Moles/Vol] 25.5 mmol/L 22.0-30.0 [facility] Serum or plasma urea nitroge n measurement (mass/volume)Ordered By: Dilan Nguyễn on 05-13-2022 Urea nitrogen [Mass/Vol] 27 mg/dL 9-23 [facility] Body fluid albumin measureme nt (mass/volume)Ordered By: Dilan Nguyễn on 03-06-2022 Albumin (Body fld) [Mass/Vol] 3.8 g/dL 3.2-5.5 [facility] Creatinine and Glomerular fi ltration rate.predicted panel (S/P/Bld)Ordered By: Dilan Nguyễn on 03-06-2022 Creatinine [Mass/Vol] 1.69 mg/dL 0.44-1.03 [facility] Estimated glomerular filtrat ion rate (GFR) non- AmericanOrdered By: Dilan Nguyễn on 03-06-2022 GFR/1.73 sq M.predicted among non-blacks MDRD (S/P/Bld) [Vol rate/Area] 30 mL/Min [facility] Laboratory - Chemistry and C hemistry - challengeOrdered By: Dilan Nguyễn on 03-06-2022 Magnesium [Mass/Vol] 2.1 mg/dL 1.6-2.6 [facility] No Panel InformationOrdered By: Dilan Nguyễn on 03-06-2022 Estimated GFR () 36 mL/Min [facility] Comment on above: GFR estimated refere nce range: According to KDOQI guidelines, <60 ml/min/1.73m2 is sufficient to diagnose a patient with chronic kidney disease. Pharmacy Creatinine Clearance (Chem N/A [facility] Phosphate [Mass/volume] in S hayder or PlasmaOrdered By: Dilan Nguyễn on 03-06-2022 Phosphate [Mass/Vol] 4.3 mg/dL 2.5-4.6 [facility] Serum or plasma anion gap de terminationOrdered By: Dilan Nguyễn on 03-06-2022 Anion gap [Moles/Vol] 15.9 mmol/L 6.0-15.0 [facility] Serum or plasma calcium xavier urement (mass/volume)Ordered By: Dilan Nguyễn on 03-06-2022 Calcium [Mass/Vol] 9.8 mg/dL 8.2-10.[address] [facility] Serum or plasma chloride bisi surement (moles/volume)Ordered By: Dilan Nguyễn on 03-06-2022 Chloride [Moles/Vol] 100 mmol/L 95-114 [facility] Serum or plasma glucose xavier urement (mass/volume)Ordered By: Dilan Nguyễn on 03-06-2022 Glucose [Mass/Vol] 84 mg/dL 70-[address] [facility] Comment on above: ADA recommended refe rence rangeRandom Glucose Reference Range is dependent on time and content of last meal. Glucose of more than 200 mg/dL in a nonstressed, ambulatory subject supports the diagnosis of Diabetes Mellitus. Serum or plasma potassium me asurement (moles/volume)Ordered By: Dlian Nguyễn on 03-06-2022 Potassium [Moles/Vol] 4.5 mmol/L 3.5-5.1 [facility] Serum or plasma sodium measu rement (moles/volume)Ordered By: Dilan Nguyễn on 03-06-2022 Sodium [Moles/Vol] 139 mmol/L 136-[address] [facility] Serum or plasma total carbon dioxide measurement (moles/volume)Ordered By: Dilan Nguyễn on 03-06-2022 CO2 [Moles/Vol] 27.6 mmol/L 22.0-30.0 [facility] Serum or plasma urea nitroge n measurement (mass/volume)Ordered By: Dilan Nguyễn on 03-06-2022 Urea nitrogen [Mass/Vol] 33 mg/dL 01-25 [facility] Urine culture routineOrdered By: Dilan Nguyễn on 02-22-2022 Bacteria identified Cx Nom (U) 2 Days [facility] Automated erythrocytes count in urine sediment (number/area)Ordered By: Dilan Nguyễn on 02-20-2022 RBC Auto (Urine sed) [#/Area] None seen [HPF] 0-4 [facility] Automated leukocytes count i n urine sediment (number/area)Ordered By: Dilan Nguyễn on 02-20-2022 WBC Auto (Urine sed) [#/Area] 5-9 [HPF] 0-4 [facility] Bilirubin Test strip Ql (U)O rdered By: Dilan Nguyễn on 02-20-2022 Bilirubin Ql (U) Negative Negative [facility] Body fluid albumin measureme nt (mass/volume)Ordered By: Dilan Nguyễn on 02-20-2022 Albumin (Body fld) [Mass/Vol] 3.5 g/dL 3.2-5.5 [facility] Color Auto (U)Ordered By: Ab halie Nguễyn on 02-20-2022 Color (U) Yellow Yellow [facility] Creatinine [Mass/volume] in UrineOrdered By: Dilan Nguyễn on 02-20-2022 Creatinine (U) [Mass/Vol] 33.4 mg/dL [facility] Comment on above: No reference range e stablished Creatinine and Glomerular fi ltration rate.predicted panel (S/P/Bld)Ordered By: Dilan Nguyễn on 02-20-2022 Creatinine [Mass/Vol] 1.69 mg/dL 0.44-1.03 [facility] Erythrocyte distribution wid th Auto (RBC) [Ratio]Ordered By: Dilan Nguyễn on 02-20-2022 Erythrocyte distribution width (RBC) [Ratio] 14.7 % 11.9-15.3 [facility] Estimated glomerular filtrat ion rate (GFR) non- AmericanOrdered By: Dilan Nguyễn on 02-20-2022 GFR/1.73 sq M.predicted among non-blacks MDRD (S/P/Bld) [Vol rate/Area] 30 mL/Min [facility] Hematocrit Auto (Bld) [Volum e fraction]Ordered By: Dilan Nguyễn on 02-20-2022 Hematocrit (Bld) [Volume fraction] 44.9 % 34.0-46.4 [facility] Hemoglobin [Mass/volume] in BloodOrdered By: Dilan Nguyễn on 02-20-2022 Hemoglobin (Bld) [Mass/Vol] 14.5 g/dL 11.8-15.4 [facility] Ketones Auto test strip (U) [Mass/Vol]Ordered By: Dilan Nguyễn on 02-20-2022 Ketones (U) [Mass/Vol] Negative Negative [facility] - Chemistry and C hemistry - challengeOrdered By: Dilan Nguyễn on 02-20-2022 Magnesium [Mass/Vol] 1.9 mg/dL 1.6-2.6 [facility] - UrinalysisOrder ed By: Dilan Nguyễn on 02-20-2022 Hyaline casts LM Ql (Urine sed) 0-8 [LPF] 0-8 [facility] MCH Auto (RBC) [Entitic mass ]Ordered By: Dilan Nguyễn on 02-20-2022 MCH (RBC) [Entitic mass] 28.8 pg 24.7-34.3 [facility] MCHC Auto (RBC) [Mass/Vol]Or dered By: Dilan Nguyễn on 02-20-2022 MCHC (RBC) [Mass/Vol] 32.3 g/dL 32.0-35.0 [facility] MCV Auto (RBC) [Entitic vol] Ordered By: Dilan Nguyễn on 10-19-2022 MCV (RBC) [Entitic vol] 89.2 fL 80-100 [facility] Nitrite Test strip Ql (U)Ord ered By: Dilan Nguyễn on 02-20-2022 Nitrite Ql (U) Negative Negative [facility] No Panel InformationOrdered By: Dilan Nguyễn on 02-20-2022 25-Hydroxy Vitamin D Total 43.0 ng/mL 30-100 [facility] Comment on above: VITAMIN D STATUS 25( [place])VITAMIN D RANGE (ng/mL) Deficient <20 Insufficient 20 to <30Sufficient 30 to 100Reference: Brittni MF,Mitzy NC, Brandt CONNER, et al. Evaluation,treatment, and prevention of vitamin D deficiency; an Endocrine Society clinical practice guideline. JCEM. 2010; 96(7):1911-30. Estimated GFR () 36 mL/Min [facility] Comment on above: GFR estimated refere nce range: According to KDOQI guidelines, <60 ml/min/1.73m2 is sufficient to diagnose a patient with chronic kidney disease. Pharmacy Creatinine Clearance (Chem N/A [facility] Phosphate [Mass/volume] in S hayder or PlasmaOrdered By: Dilan Nguyễn on 02-20-2022 Phosphate [Mass/Vol] 3.9 mg/dL 2.5-4.6 [facility] Platelet mean volume Auto (B ld) [Entitic vol]Ordered By: Dilan Nguyễn on 02-20-2022 Platelet mean volume (Bld) [Entitic vol] 8.6 fL 6.3-10.7 [facility] Platelets Auto (Bld) [#/Vol] Ordered By: Dilan Nguyễn on 02-20-2022 Platelets (Bld) [#/Vol] 327 10*3/uL 150-450 [facility] Protein Auto test strip (U) [Mass/Vol]Ordered By: Dilan Nguyễn on 02-20-2022 Protein (U) [Mass/Vol] Negative Negative [facility] Protein [Mass/volume] in Uri neOrdered By: Dilan Nguyễn on 02-20-2022 Protein (U) [Mass/Vol] mg/dL 0-9 [facility] RBC Auto (Bld) [#/Vol]Ordere d By: Dilan Nguyễn on 02-20-2022 RBC (Bld) [#/Vol] 5.04 10*6/uL 3.60-5.00 [facility] Serum or plasma anion gap de terminationOrdered By: Dilan Nguyễn on 02-20-2022 Anion gap [Moles/Vol] 10.6 mmol/L 6.0-15.0 [facility] Serum or plasma calcium xavier urement (mass/volume)Ordered By: Dilan Nguyễn on 02-20-2022 Calcium [Mass/Vol] 9.1 mg/dL 8.2-10.[address] [facility] Serum or plasma chloride bisi surement (moles/volume)Ordered By: Dilan Nguyễn on 02-20-2022 Chloride [Moles/Vol] 105 mmol/L 95-114 [facility] Serum or plasma glucose xavier urement (mass/volume)Ordered By: Dilan Nguyễn on 02-20-2022 Glucose [Mass/Vol] 116 mg/dL 70-[address] [facility] Comment on above: ADA recommended refe rence rangeRandom Glucose Reference Range is dependent on time and content of last meal. Glucose of more than 200 mg/dL in a nonstressed, ambulatory subject supports the diagnosis of Diabetes Mellitus. Serum or plasma intact parat hyroid hormone measurement (mass/volume)Ordered By: Dilan Nguyễn on 02-20-2022 Parathyrin.intact [Mass/Vol] 48.5 pg/mL 12-88 [facility] Serum or plasma potassium me asurement (moles/volume)Ordered By: Dilan Nguyễn on 02-20-2022 Potassium [Moles/Vol] 3.9 mmol/L 3.5-5.1 [facility] Serum or plasma sodium measu rement (moles/volume)Ordered By: Dilan Nguyễn on 02-20-2022 Sodium [Moles/Vol] 137 mmol/L 136-[address] [facility] Serum or plasma total carbon dioxide measurement (moles/volume)Ordered By: Dilan Nguyễn on 02-20-2022 CO2 [Moles/Vol] 25.3 mmol/L 22.0-30.0 [facility] Serum or plasma urea nitroge n measurement (mass/volume)Ordered By: Dilan Nguyễn on 02-20-2022 Urea nitrogen [Mass/Vol] 26 mg/dL 01-25 [facility] Serum or plasma uric acid me asurement (mass/volume)Ordered By: Dilan Nguyễn on 02-20-2022 Urate [Mass/Vol] 4.3 mg/dL 2.6-7.2 [facility] Specific gravity Auto test s trip (U) [Rel density]Ordered By: Dilan Nguyễn on 02-20-2022 Specific gravity (U) [Rel density] 1.010 1.001-1.030 [facility] Squamous epithelial cells de tection in urine sediment by light microscopyOrdered By: Dilan Nguyễn on 02-20-2022 Epithelial cells.squamous LM Ql (Urine sed) 1-2 [HPF] 0-2 [facility] Urine bacteria detection by automated methodOrdered By: Dilan Nguyễn on 02-20-2022 Bacteria Auto Ql (U) None seen None Seen [facility] Urine clarity by refractomet ry automatedOrdered By: Dilan Nguyễn on 02-20-2022 Clarity Refractometry automated (U) Clear Clear [facility] Urine culture routineOrdered By: Dilan Nguyễn on 02-20-2022 Bacteria identified Cx Nom (U) 2 Days [facility] Urine glucose measurement by automated test strip (mass/volume)Ordered By: Dilan Nguyễn on 02-20-2022 Glucose Auto test strip (U) [Mass/Vol] Normal mg/dL Normal [facility] Urine hemoglobin detection b y automated test stripOrdered By: Dilan Nguyễn on 02-20-2022 Hemoglobin Auto test strip Ql (U) Negative Negative [facility] Urine leukocyte esterase det ection by automated test stripOrdered By: Dilan Nguyễn on 02-20-2022 Leukocyte esterase Auto test strip Ql (U) 3+ Negative [facility] Urine protein/creatinine rat ioOrdered By: Dilan Nguyễn on 02-20-2022 Protein/Creatinine (U) [Ratio] TNP [facility] Comment on above: Test not performed Urobilinogen Auto test strip (U) [Mass/Vol]Ordered By: Dilan Nguyễn on 02-20-2022 Urobilinogen (U) [Mass/Vol] Normal mg/dL Normal [facility] WBC Auto (Bld) [#/Vol]Ordere d By: Dilan Sergio on 02-20-2022 WBC (Bld) [#/Vol] 8.0 10*3/uL 3.8-11.[address] [facility] pH Auto test strip (U)Ordere d By: Dilan Sergio on 02-20-2022 pH (U) 6.0 [pH] 5.0-9.0 [facility] Office Visit (Oncology Surge ry)on 06-18-2021 Follow-up [...] any other skin lesions. She saw her Windows Phone Developer Dr. Kelley and underwent a biopsy of [...] biopsies. She is being seen by a Trade Marker for various issues including Left arm swelling. [...] MG Oral TabletTAKE 1 TABLET DAILY. Biotin [id number] 1 CAPSULE ORALLY bid Carvedilol 12.5 MG [...] Radiologyon 12-15-2020 US Extremity limited Normal MG-S urgery-[facility] 6247 Work Phone: US Extremity Please click on the link to view the study images Normal II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 H/o pulmonary embolism on [facility] Surgery 10/08/2019 - WIde excision left [...] the patient is well connected to her strip presser and should continue with total-body skin examinations [...] any other skin lesions. She saw her Windows Phone Developer Dr. Kelley and underwent a biopsy of [...] Some irritable (more content not included)... [facility] (Oncology Surge ry)on [...] any other skin lesions. She saw her Windows Phone Developer Dr. Kelley and underwent a biopsy of [...] [Mass/Vol] 257 mg/dL High 74 - 99 [facility] Comment on above: Result Comment: Erna short MD/RN Performed By: #### G RYAN #### [facility] [address] [place] [address] Glucose [Mass/Vol] 281 mg/dL High 74 - 99 [facility] Comment on above: Performed By: #### G RYAN #### [address] [address] History and Physical - Surge ry > [...] any other skin lesions. She saw her Windows Phone Developer Dr. Kelley and underwent a biopsy of [...] Updated: 08-Oct-2019 07:22 by Heath Francisco) Normal [facility] Operative Reports - [place] on 10-08-2019 Operative Reports - [place] Preoperative diagnosis: Left upper arm melanoma Postoperative diagnosis: Same Procedure: 1) Wide excision Left upper arm melanoma with 1 cm. margins and intermediate repair of a 9cm. wound defect. Surgeon: Heath Francisco M.D. Web Systems Developer: Tanya MCGREGOR Anesthesia: MAC and local EBL: [...] Last Updated: 08-Oct-2019 08:42 by Heath Francisco) [facility] Patient Profile - Preop v2on 10-08-2019 Patient Profile - Preop v2 Profile: Initial Info: How to be AddressedBARB Spoken Language PreferredEnglish Stated Reason for AdmissionMELENOMA REMOVED LT ARM Primary Contact Name and [phone] Patient Belongingsnone Medications Brought to Hospitalno Are you currently using the Personal Electronic Health Record or ZaelabFotomotono Are you interested in learning more about ZaelabCARE for the management of your healthnot at this time General Health: Blood Avoidance/Restrictionsn one Weight in kg120 kilogram(s) Weight in oyl372.5 pound(s) Weight Methodstated Height in cm165.1 centimeter(s) Height in feet5 feet Height in inches5 inch(es) Height Methodstated BMI (kg/m2)44.023 square meter Patient or Family Member Reaction to Anesthesiano previous reaction Health Mgmt: Barriers to Managing Healthnone [facility]LEM L[facility] Relationship/Environ: Living [...] Learning Preferencesverbal instruction Cultural Considerationsnone Developmental Considerationsnone Evangelical Considerationsnone Other learner availableno [place] RiskPatient location auto qualifies him/her for HIGH RISK. Are there any cultural, spiritual, cheondoism practices/values/needs that are important for us to [...] Updated: 08-Oct-2019 07:36 by Danuta Ngo (VENANCIO) [facility] Preop Checkliston 10-08-2019 Preop Checklist Preop Checklist: Preop Checklist: Arrival [id number] Arrival Time06:10 Procedure TypeLT ARM MELANOMA REOVED Temperature C37.4 degrees C Temperature F99.3 degrees F Heart Rate74 beats per minute Respiratory Rate16 breath per minute Blood Pressure Zteuwqcr328 mm/Hg Blood Pressure Ufbsmxbub62 mm/Hg NPO [id number] 23:00 ID Band Onyes Allergy Bandyes Consent [...] 08-Oct-2019 07:39 by Danuta Ngo (VENANCIO) Normal [facility] NEW MICROALBUMINon 9 Creatinine mass conc (U) 59.2 mg/dL Normal [facility] Comment on above: Order Comment: THE M ICROALBUMIN IS < 6.0 THEREFORE THE MICROALBUMIN/CREATININE RATIO IS UNDETECTABLE. Performed By: #### 8 00 #### [facility] Unless Otherwise Noted [address] [address] / COLBin #4724/TAYLER # [id number] Microalbumin <6.0 Normal 0.0-30.0 [facility] Comment on above: Order Comment: THE M ICROALBUMIN IS < 6.0 THEREFORE THE MICROALBUMIN/CREATININE RATIO IS UNDETECTABLE. Performed By: #### 8 00 #### [facility] Unless Otherwise Noted [address] [address] / COLA #4724/CLIA # [id number] Urine A/C Ratio -99.0 mg/g Low 0.0-30.0 [facility] Comment on above: Order Comment: THE M ICROALBUMIN IS < 6.0 THEREFORE THE MICROALBUMIN/CREATININE RATIO IS UNDETECTABLE. Performed By: #### 8 00 #### [facility] Unless Otherwise Noted [address] [address] / COLA #4724/CLIA # [id number] LIPID PANEL (INCLUDES CALCUL ATED LDL)on 07-08-2018 Cholesterol in LDL/Cholesterol in HDL mass ratio 1.8 Normal <3.5 [facility] Comment on above: Performed By: #### 3 29 #### [facility] Unless Otherwise Noted [address] [address] / COLA #4724/CLIA # [id number] Cholesterol mass conc 165 mg/dL Normal <200 [facility] Comment on above: Performed By: #### 3 29 #### [facility] Unless Otherwise Noted [address] [address] / COLA #4724/CLIA # [id number] Cholesterol.total/Chol esterol in HDL mass ratio 3.8 {ratio} Normal <5 [facility] Comment on above: Result Comment: [employer] [address] [place] [address] CLIA No. [id number] CAP Accreditation No. [id number] Operations Intern: Ray Tate M.D. Performed By: #### 3 29 #### [facility] Unless Otherwise Noted [address] [address] / COLA #4724/CLIA # [id number] HDL-CHOL 43.1 mg/dL Normal >39 [facility] Comment on above: Result Comment: HDL <40 mg/dL IS A RISK FACTOR FOR CORONARY HEART DISEASE. HDL >60 mg/dL IS A NEGATIVE RISK FACTOR FOR CORONARY HEART DISEASE. Performed By: #### 3 29 #### [facility] Unless Otherwise Noted [address] [address] / COLA #4724/CLIA # [id number] LDL-CHOL, CALCULATED 76 mg/dL Normal <130 [facility] Comment on above: Result Comment: LDL CHOLESTEROL REFERENCE RANGE FOR 0-19 YEARS: DESIRABLE <110 mg/dL, BORDERLINE 110-129, HIGH RISK >130 LDL CHOLESTEROL REFERENCE RANGE FOR ADULTS: DESIRABLE <100 mg/dL, BORDERLINE 130-159, HIGH RISK >160 REFERENCE RANGES REVISED 10/13/15 ACCORDING TO NCEP GUIDELINES Performed By: #### 3 29 #### [facility] Unless Otherwise Noted [address] [address] / COLA #4724/CLIA # [id number] Triglyceride mass conc 232 mg/dL High <150 [facility] Comment on above: Performed By: #### 3 29 #### [facility] Unless Otherwise Noted [address] [address] / COLA #4724/CLIA # [id number] VLDL-CHOL, CALCULATED 46 mg/dL High <30 [facility] Comment on above: Performed By: #### 3 29 #### [facility] Unless Otherwise Noted [address] [address] / COLA #4724/CLIA # [id number] PTH, [place] 03-07-2018 PTH, Intact 21.59 pg/mL Normal 15.0-65.0 [place] Comment on above: Result Comment: SAMP LES FROM PATIENTS ROUTINELY RECEIVING HIGH DOSE BIOTIN THERAPY MAY SHOW FALSELY DEPRESSED RESULTS. ADDITIONAL INFORMATION MAY BE REQUIRED FOR DIAGNOSIS. Performed By: #### R ENP, URTPRT, MG, UAMIC, URI ####[address] [place], [place] [address] #### CBC, PTHNCA, VD25 ####[address] [address] Vitamin D 25 OHon 03-07-2018 Vitamin D 25 [place] 25.9 ng/mL Low 30.0-100.0 [facility] Comment on above: Result Comment: Refe rence Range:Vitamin D status Range Deficiency <20 ng/mL Mild Deficiency 20-30 ng/mL Sufficiency 30-100 ng/mL Toxicity >100 ng/mL Performed By: #### R ENP, URTPRT, MG, UAMIC, URI ####[address] [place] [address] #### CBC, PTHNCA, VD25 ####[address] [address] CBCon 03-06-2018 Erythrocyte distribution width Auto Ratio (RBC) 14.9 % High 11.8-14.4 [place] Comment on above: Performed By: #### U RI, UAMIC, URCRE, RENP, MG, CBC ####[address] [place] [address] #### VD25, PTHNCA ####[address] [address] Hematocrit Auto Volume Fraction (Bld) 43.7 % Normal 36.3-47.1 [facility] Comment on above: Performed By: #### U RI, UAMIC, URCRE, RENP, MG, CBC ####[address] [place] [address] #### VD25, PTHNCA ####[address] [id number] Hemoglobin mass conc (Bld) 13.5 g/dL Normal 11.9-15.1 [facility] Comment on above: Performed By: #### U RI, UAMIC, URCRE, RENP, MG, CBC ####[address] [place] [id number] #### VD25, PTHNCA ####[address] [id number] MCH Auto Entitic mass (RBC) 27.2 pg Normal 25.2-33.5 [facility] Comment on above: Performed By: #### U RI, UAMIC, URCRE, RENP, MG, CBC ####[address] [place] [id number] #### VD25, PTHNCA ####[address] [address] MCHC Auto mass conc (RBC) 30.9 g/dL Normal 28.4-34.8 [facility] Comment on above: Performed By: #### U RI, UAMIC, URCRE, RENP, MG, CBC ####[address] [place], [place] [id number] #### VD25, PTHNCA ####[address] [address] MCV Auto Entitic volume (RBC) 87.9 fL Normal 82.6-102.9 [facility] Comment on above: Performed By: #### U RI, UAMIC, URCRE, RENP, MG, CBC ####[address] [place], [place] [id number] #### VD25, PTHNCA ####[address] [address] NRBC Automated 0.0 per 100 WBC Normal 0.0 [facility] Comment on above: Performed By: #### U RI, UAMIC, URCRE, RENP, MG, CBC ####[address] [place] [address] #### VD25, PTHNCA ####[address] [address] Platelet mean volume Auto Entitic volume (Bld) 10.1 fL Normal 8.1-13.5 [facility] Comment on above: Performed By: #### U RI, UAMIC, URCRE, RENP, MG, CBC ####[address] [place] [address] #### VD25, PTHNCA ####[address] [address] Platelets Auto #/vol (Bld) 431 10*3/uL Normal 138-453 [place] Comment on above: Performed By: #### U RI, UAMIC, URCRE, RENP, MG, CBC ####[address] [place] [address] #### VD25, PTHNCA ####[address] [address] RBC Auto #/vol (Bld) 4.97 10*6/uL Normal 3.95-5.11 [facility] Comment on above: Performed By: #### U RI, UAMIC, URCRE, RENP, MG, CBC ####[address] [place] [address] #### VD25, PTHNCA ####[address] [address] WBC Auto #/vol (Bld) 10.2 10*3/uL Normal 3.5-11.3 [facility] Comment on above: Performed By: #### U RI, UAMIC, URCRE, RENP, MG, CBC ####[address] [place] [address] #### VD25, PTHNCA ####[address] [address] Creatinine,Random Uron 03-06 Creatinine mass conc 37.0 mg/dL Normal 28.0-217.0 [facility] Comment on above: Performed By: #### R ENP, URTPRT, MG, UAMIC, URI ####[address] [place], [place] 9[address] #### CBC, PTHNCA, VD25 ####[address] [address] Creatinine mass conc 36.3 mg/dL Normal 28.0-217.0 [facility] Comment on above: Performed By: #### U RI, UAMIC, URCRE, RENP, MG, CBC ####[address] [place], [place] [address] #### VD25, PTHNCA ####[address] [address] Magnesiumon 03-06-2018 Magnesium mass conc 2.2 mg/dL Normal 1.6-2.6 [place] Comment on above: Performed By: #### R ENP, URTPRT, MG, UAMIC, URI ####[address] [place], [place] [address] #### CBC, PTHNCA, VD25 ####[address] [address] Renal Function Panelon 03-06 (cont.) Normal [place] Comment on above: Result Comment: Aver age GFR for 60-69 years old: 85 mL/min/1.73sq mChronic Kidney Disease: <60 mL/min/1.73sq mKidney failure: <15 mL/min/1.73sq meGFR calculated using average adult body mass. Additional eGFR calculator available at:[email or web address] Performed By: #### R ENP, URTPRT, MG, UAMIC, URI ####[address] [place] [address] #### CBC, PTHNCA, VD25 ####[place] [address] [place], [place] [phone] Albumin mass conc 4.0 g/dL Normal 3.5-5.2 [facility] Comment on above: Performed By: #### R ENP, URTPRT, MG, UAMIC, URI ####[address] [place] [address] #### CBC, PTHNCA, VD25 ####[place] [place], [place] [id number] Anion gap 3 molar conc 12 mmol/L Normal 9-17 [facility] Comment on above: Performed By: #### R ENP, URTPRT, MG, UAMIC, URI ####[address] [place] [address] #### CBC, PTHNCA, VD25 ####[place] [address] [place], [place] [id number] BUN/CRE Ratio 18 Normal 9-20 [facility] Comment on above: Performed By: #### R ENP, URTPRT, MG, UAMIC, URI ####[address] [place] [address] #### CBC, PTHNCA, VD25 ####[place] [place] [address] Calcium mass conc 9.3 mg/dL Normal 8.6-10.4 [facility] Comment on above: Performed By: #### R ENP, URTPRT, MG, UAMIC, URI ####[address] [place] [address] #### CBC, PTHNCA, VD25 ####[address] [address] Chloride molar conc 104 mmol/L Normal 98-107 [place] Comment on above: Performed By: #### R ENP, URTPRT, MG, UAMIC, URI ####[address] [place] [address] #### CBC, PTHNCA, VD25 ####[address] [address] CO2 molar conc 24 mmol/L Normal 20-31 [facility] Comment on above: Performed By: #### R ENP, URTPRT, MG, UAMIC, URI ####[address] [place] [address] #### CBC, PTHNCA, VD25 ####[address] [address] Creatinine mass conc 1.47 mg/dL High 0.50-0.90 [facility] Comment on above: Performed By: #### R ENP, URTPRT, MG, UAMIC, URI ####[address] [place] [address] #### CBC, PTHNCA, VD25 ####[place] [place] [address] GFR, Amer 43 mL/min Low >60 [facility] Comment on above: Performed By: #### R ENP, URTPRT, MG, UAMIC, URI ####[address] [place] [address] #### CBC, PTHNCA, VD25 ####[address] [address] GFR,non Amer 36 mL/min Low >60 [facility] Comment on above: Performed By: #### R ENP, URTPRT, MG, UAMIC, URI ####[address] [place] [address] #### CBC, PTHNCA, VD25 ####[address] [address] Glucose mass conc 63 mg/dL Low 70-99 [facility] Comment on above: Performed By: #### R ENP, URTPRT, MG, UAMIC, URI ####[address] [place] [address] #### CBC, PTHNCA, VD25 ####[address] [address] Phosphorus, Inorg. 3.5 mg/dL Normal 2.6-4.5 [place] Comment on above: Performed By: #### R ENP, URTPRT, MG, UAMIC, URI ####[address] [place] [address] #### CBC, PTHNCA, VD25 ####[address] [address] Potassium molar conc 4.0 mmol/L Normal 3.7-5.3 [facility] Comment on above: Performed By: #### R ENP, URTPRT, MG, UAMIC, URI ####[address] [place] [address] #### CBC, PTHNCA, VD25 ####[address] [place] [address] Sodium molar conc 140 mmol/L Normal 135-144 [facility] Comment on above: Performed By: #### R ENP, URTPRT, MG, UAMIC, URI ####[address] [place], [place] [id number] #### CBC, PTHNCA, VD25 ####[address] [place] [address] Staging: Normal [place] Comment on above: Result Comment: Stag e 1: Some kidney damage normal GFRStage 2: Mild kidney damage GFR 60-89Stage 3: Moderate kidney damage GFR 30-59Stage 4: Severe kidney damage GFR 15-29Stage 5: Severe kidney damage GFR <15ESRD - chronic treatment by dialysis or transplant Performed By: #### R ENP, URTPRT, MG, UAMIC, URI ####[address] [place], [place] [id number] #### FAMILIA, PTHNCA, VD25 ####[address] [address] Urea nitrogen mass conc 27 mg/dL High 8-23 [place] Comment on above: Performed By: #### R ENP, URTPRT, MG, UAMIC, URI ####[address] [place], [place] [address] #### CBC, PTHNCA, VD25 ####[address] [place] [address] Uric Acidon 03-06-2018 Urate mass conc 3.7 mg/dL Normal 2.4-5.7 [facility] Comment on above: Performed By: #### R ENP, URTPRT, MG, UAMIC, URI ####[address] [place], [place] [address] #### CBC, PTHNCA, VD25 ####[address] [address] Urinalysis w/ Microon 2017 ----- Normal [place] Comment on above: Performed By: #### R ENP, URTPRT, MG, UAMIC, URI ####[address] [place] [address] #### CBC, PTHNCA, VD25 ####[address] [address] Acetoacetic Acid,Ur Negative Normal NEG [place] Comment on above: Performed By: #### R ENP, URTPRT, MG, UAMIC, URI ####[address] [place] [address] #### CBC, PTHNCA, VD25 ####[address] [address] Bacteria TRACE Abnormal NONE [place] Comment on above: Performed By: #### R ENP, URTPRT, MG, UAMIC, URI ####[address] [place] [address] #### CBC, PTHNCA, VD25 ####[address] [address] Bilirubin, SemiQt,Ur Negative Normal NEG [facility] Comment on above: Performed By: #### R ENP, URTPRT, MG, UAMIC, URI ####[address] [place] [address] #### CBC, PTHNCA, VD25 ####[address] [address] Color YELLOW Normal YEL [place] Comment on above: Performed By: #### R ENP, URTPRT, MG, UAMIC, URI ####[address] [place] [address] #### CBC, PTHNCA, VD25 ####[address] [address] Epithelial cells 0 TO 2 Normal 0-25 [facility] Comment on above: Performed By: #### R ENP, URTPRT, MG, UAMIC, URI ####[address] [place] [address] #### CBC, PTHNCA, VD25 ####[address] [address] Glucose,Semi-qnt,Ur Negative Normal NEG [place] Comment on above: Performed By: #### R ENP, URTPRT, MG, UAMIC, URI ####[address] [place] [address] #### CBC, PTHNCA, VD25 ####[address] [address] Hemoglobin, Ur Negative Normal NEG [facility] Comment on above: Performed By: #### R ENP, URTPRT, MG, UAMIC, URI ####[address] [place] [address] #### CBC, PTHNCA, VD25 ####[address] [address] Leuckocyte Esterase SMALL Abnormal NEG [place] Comment on above: Performed By: #### R ENP, URTPRT, MG, UAMIC, URI ####[address] [place] [address] #### CBC, PTHNCA, VD25 ####[address] [address] Mucus Strands TRACE Abnormal NONE [facility] Comment on above: Performed By: #### R ENP, URTPRT, MG, UAMIC, URI ####[address] [place] [address] #### CBC, PTHNCA, VD25 ####[address] [address] Nitrite,Ur Negative Normal NEG [place] Comment on above: Performed By: #### R ENP, URTPRT, MG, UAMIC, URI ####[address] [place] [address] #### CBC, PTHNCA, VD25 ####[address] [address] PH,Ur 5.5 Normal 5.0-9.0 [place] Comment on above: Performed By: #### R ENP, URTPRT, MG, UAMIC, URI ####[address] [place] [address] #### CBC, PTHNCA, VD25 ####[address] [address] Protein mass conc Negative Normal NEG [facility] Comment on above: Performed By: #### R ENP, URTPRT, MG, UAMIC, URI ####[address] [place] [address] #### CBC, PTHNCA, VD25 ####[address] [address] RBC Test strip #/vol (U) 0 TO 2 Normal 0-2 [place] Comment on above: Performed By: #### R ENP, URTPRT, MG, UAMIC, URI ####[address] [place] [address] #### CBC, PTHNCA, VD25 ####[address] [address] Spec. [place],Ur 1.015 Normal 1.010-1.020 [facility] Comment on above: Performed By: #### R ENP, URTPRT, MG, UAMIC, URI ####[address] [place] [address] #### CBC, PTHNCA, VD25 ####[address] [address] Turbidity CLEAR Normal CLEAR [place] Comment on above: Performed By: #### R ENP, URTPRT, MG, UAMIC, URI ####[address] [place] [address] #### CBC, PTHNCA, VD25 ####[address] [address] Urine WBC's 0 TO 2 Normal 0-5 [place] Comment on above: Performed By: #### R ENP, URTPRT, MG, UAMIC, URI ####[address] [place] [address] #### CBC, PTHNCA, VD25 ####[address] [address] Urobilinogen,Ur Normal Normal NORM [facility] Comment on above: Performed By: #### R ENP, URTPRT, MG, UAMIC, URI ####[address] [place] [address] #### CBC, PTHNCA, VD25 ####[address] [address] Amorphous Sediment NOT REPORTED Normal NONE [facility] Comment on above: Performed By: #### R ENP, URTPRT, MG, UAMIC, URI ####[address] [place] [address] #### CBC, PTHNCA, VD25 ####[address] [address] Casts NOT REPORTED Normal [place] Comment on above: Performed By: #### R ENP, URTPRT, MG, UAMIC, URI ####[address] [place] [address] #### CBC, PTHNCA, VD25 ####[address] [address] Comment NOT REPORTED Normal [place] Comment on above: Performed By: #### R ENP, URTPRT, MG, UAMIC, URI ####[address] [place] [address] #### CBC, PTHNCA, VD25 ####[address] [address] Crystals NOT REPORTED Normal NONE [place] Comment on above: Performed By: #### R ENP, URTPRT, MG, UAMIC, URI ####[address] [place] [address] #### CBC, PTHNCA, VD25 ####[address] [address] Epithelial, Renal NOT REPORTED Normal 0 [place] Comment on above: Performed By: #### R ENP, URTPRT, MG, UAMIC, URI ####[address] [place] [address] #### CBC, PTHNCA, VD25 ####[address] [address] Other Observations NOT REPORTED Normal NREQ [facility] Comment on above: Performed By: #### R ENP, URTPRT, MG, UAMIC, URI ####[address] [place] [address] #### CBC, PTHNCA, VD25 ####[address] [place] [address] Trichomonas NOT REPORTED Normal NONE [facility] Comment on above: Performed By: #### R ENP, URTPRT, MG, UAMIC, URI ####[address] [place] [address] #### CBC, PTHNCA, VD25 ####[address] [place] [address] Yeast NOT REPORTED Normal NONE [place] Comment on above: Performed By: #### R ENP, URTPRT, MG, UAMIC, URI ####[address] [place] [address] #### CBC, PTHNCA, VD25 ####[address] [place] [address] PTH, Intacton 09-20-2017 PTH, Intact 17.31 pg/mL Normal 15.0-65.0 [place] Comment on above: Result Comment: SAMP LES FROM PATIENTS ROUTINELY RECEIVING HIGH DOSE BIOTIN THERAPY MAY SHOW FALSELY DEPRESSED RESULTS. ADDITIONAL INFORMATION MAY BE REQUIRED FOR DIAGNOSIS.Performed at [address] [place] [address] Performed By: #### R ENP, URTPRT, MG, UAMIC, URI ####[address] [place] [address] #### CBC, PTHNCA, VD25 ####[address] [place] [address] Vitamin D 25 OHon 09-20-2017 Vitamin D 25 [place] 21.8 ng/mL Low 30.0-100.0 [facility] Comment on above: Result Comment: Refe rence Range:Vitamin D status Range Deficiency <20 ng/mL Mild Deficiency 20-30 ng/mL Sufficiency 30-100 ng/mL Toxicity >100 ng/mLPerformed at [address] [address] Performed By: #### R ENP, URTPRT, MG, UAMIC, URI ####[address] [place], [place] [address] #### CBC, PTHNCA, VD25 ####[address] [address] CBCon 09-19-2017 Erythrocyte distribution width Auto Ratio (RBC) 15.8 % High 11.8-14.4 [place] Comment on above: Performed By: #### R ENP, URTPRT, MG, UAMIC, URI ####[address] [place], [place] [address] #### CBC, PTHNCA, VD25 ####[address] [address] Hematocrit Auto Volume Fraction (Bld) 40.2 % Normal 36.3-47.1 [place] Comment on above: Performed By: #### R ENP, URTPRT, MG, UAMIC, URI ####[address] [place] [address] #### CBC, PTHNCA, VD25 ####[address] [address] Hemoglobin mass conc (Bld) 12.5 g/dL Normal 11.9-15.1 [place] Comment on above: Performed By: #### R ENP, URTPRT, MG, UAMIC, URI ####[address] [place] [address] #### CBC, PTHNCA, VD25 ####[address] [id number] MCH Auto Entitic mass (RBC) 27.7 pg Normal 25.2-33.5 [place] Comment on above: Performed By: #### R ENP, URTPRT, MG, UAMIC, URI ####[address] [place] [address] #### CBC, PTHNCA, VD25 ####[address] [id number] MCHC Auto mass conc (RBC) 31.1 g/dL Normal 28.4-34.8 [place] Comment on above: Performed By: #### R ENP, URTPRT, MG, UAMIC, URI ####[address] [place] [address]83 #### CBC, PTHNCA, VD25 ####[address] [id number] MCV Auto Entitic volume (RBC) 88.9 fL Normal 82.6-102.9 [place] Comment on above: Performed By: #### R ENP, URTPRT, MG, UAMIC, URI ####[address] [place] [address] #### CBC, PTHNCA, VD25 ####[address] [id number] NRBC Automated 0.0 per 100 WBC Normal 0.0 [place] Comment on above: Result Comment: Perf ormed at [address] [id number] [phone] Performed By: #### R ENP, URTPRT, MG, UAMIC, URI ####[address] [place] [address]83 #### CBC, PTHNCA, VD25 ####[address] [id number] Platelet mean volume Auto Entitic volume (Bld) 10.0 fL Normal 8.1-13.5 [place] Comment on above: Performed By: #### R ENP, URTPRT, MG, UAMIC, URI ####[address] [place], [place] [address] #### CBC, PTHNCA, VD25 ####[address] [address] Platelets Auto #/vol (Bld) 392 10*3/uL Normal 138-453 [place] Comment on above: Performed By: #### R ENP, URTPRT, MG, UAMIC, URI ####[address] [place] [address] #### CBC, PTHNCA, VD25 ####[address] [address] RBC Auto #/vol (Bld) 4.52 10*6/uL Normal 3.95-5.11 [facility] Comment on above: Performed By: #### R ENP, URTPRT, MG, UAMIC, URI ####[address] [place] [address] #### CBC, PTHNCA, VD25 ####[address] [address] WBC Auto #/vol (Bld) 10.3 10*3/uL Normal 3.5-11.3 [facility] Comment on above: Performed By: #### R ENP, URTPRT, MG, UAMIC, URI ####[address] [place] [address] #### CBC, PTHNCA, VD25 ####[address] [address] Magnesiumon 09-19-2017 Magnesium mass conc 2.0 mg/dL Normal 1.6-2.6 [place] Comment on above: Result Comment: Perf ormed at [address] [place] [address] Performed By: #### R ENP, URTPRT, MG, UAMIC, URI ####[address] [place] [address]83 #### CBC, PTHNCA, VD25 ####[address] [address] Protein,Tot,[place] Uron 2017 Creatinine mass conc 142.4 mg/dL Normal 28.0-217.0 [facility] Comment on above: Performed By: #### R ENP, URTPRT, MG, UAMIC, URI ####[address] [place], [place] [address]483 #### CBC, PTHNCA, VD25 ####[address] [address] Protein mass conc 7 mg/dL Normal [facility] Comment on above: Result Comment: No n ormal range established. Performed By: #### R ENP, URTPRT, MG, UAMIC, URI ####[address] [place] [address] #### CBC, PTHNCA, VD25 ####[address] [address] TP/Cre Ratio 0.05 Normal 0.00-0.20 [place] Comment on above: Result Comment: Perf ormed at [address] [place] [address] Performed By: #### R ENP, URTPRT, MG, UAMIC, URI ####[address] [place] [address] #### CBC, PTHNCA, VD25 ####[address] [address] Renal Function Panelon 09-19 (cont.) Normal [place] Comment on above: Result Comment: Aver age GFR for 60-69 years old: 85 mL/min/1.73sq mChronic Kidney Disease: <60 mL/min/1.73sq mKidney failure: <15 mL/min/1.73sq meGFR calculated using average adult body mass. Additional eGFR calculator available at:[email or web address]_[email or web address].htm Performed By: #### R ENP, URTPRT, MG, UAMIC, URI ####[address] [place] [address] #### CBC, PTHNCA, VD25 ####[address] [address] Albumin mass conc 4.0 g/dL Normal 3.5-5.2 [facility] Comment on above: Performed By: #### R ENP, URTPRT, MG, UAMIC, URI ####[address] [place] [address] #### CBC, PTHNCA, VD25 ####[address] [address] Anion gap 3 molar conc 11 mmol/L Normal 9-17 [facility] Comment on above: Performed By: #### R ENP, URTPRT, MG, UAMIC, URI ####[address] [place] [address] #### CBC, PTHNCA, VD25 ####[address] [place] [address] BUN/CRE Ratio 25 High 9-20 [facility] Comment on above: Performed By: #### R ENP, URTPRT, MG, UAMIC, URI ####[address] [place] [address] #### CBC, PTHNCA, VD25 ####[address] [address] Calcium mass conc 9.3 mg/dL Normal 8.6-10.4 [facility] Comment on above: Performed By: #### R ENP, URTPRT, MG, UAMIC, URI ####[address] [place] [address] #### CBC, PTHNCA, VD25 ####[address] [address] Chloride molar conc 102 mmol/L Normal 98-107 [place] Comment on above: Performed By: #### R ENP, URTPRT, MG, UAMIC, URI ####[address] [place] [address] #### CBC, PTHNCA, VD25 ####[address] [address] CO2 molar conc 27 mmol/L Normal 20-31 [facility] Comment on above: Performed By: #### R ENP, URTPRT, MG, UAMIC, URI ####[address] [place] [address] #### CBC, PTHNCA, VD25 ####[address] [address] Creatinine mass conc 1.00 mg/dL High 0.50-0.90 [facility] Comment on above: Performed By: #### R ENP, URTPRT, MG, UAMIC, URI ####[address] [place] [address] #### CBC, PTHNCA, VD25 ####[address] [address] GFR, Amer >60 Normal >60 [facility] Comment on above: Performed By: #### R ENP, URTPRT, MG, UAMIC, URI ####[address] [place] [address] #### CBC, PTHNCA, VD25 ####[address] [address] GFR,non Amer 55 mL/min Low >60 [facility] Comment on above: Performed By: #### R ENP, URTPRT, MG, UAMIC, URI ####[address] [place] [address] #### CBC, PTHNCA, VD25 ####[address] [address] Glucose mass conc 188 mg/dL High 70-99 [facility] Comment on above: Performed By: #### R ENP, URTPRT, MG, UAMIC, URI ####[address] [place] [address] #### CBC, PTHNCA, VD25 ####[address] [address] Phosphorus, Inorg. 3.3 mg/dL Normal 2.6-4.5 [place] Comment on above: Performed By: #### R ENP, URTPRT, MG, UAMIC, URI ####[address] [place] [address] #### CBC, PTHNCA, VD25 ####[address] [address] Potassium molar conc 3.8 mmol/L Normal 3.7-5.3 [facility] Comment on above: Performed By: #### R ENP, URTPRT, MG, UAMIC, URI ####[address] , [place] [address]883 #### CBC, PTHNCA, VD25 ####[address] [address] Sodium molar conc 140 mmol/L Normal 135-144 [facility] Comment on above: Performed By: #### R ENP, URTPRT, MG, UAMIC, URI ####[address] [place], [place] [address] #### CBC, PTHNCA, VD25 ####[address] [address] Staging: Normal [place] Comment on above: Result Comment: Stag e 1: Some kidney damage normal GFRStage 2: Mild kidney damage GFR 60-89Stage 3: Moderate kidney damage GFR 30-59Stage 4: Severe kidney damage GFR 15-29Stage 5: Severe kidney damage GFR <15ESRD - chronic treatment by dialysis or transplantPerformed at [address] [place], [place] [id number] [phone] Performed By: #### R ENP, URTPRT, MG, UAMIC, URI ####[address] [place] [address] #### CBC, PTHNCA, VD25 ####[address] [place] [address] Urea nitrogen mass conc 25 mg/dL High 8-23 [place] Comment on above: Performed By: #### R ENP, URTPRT, MG, UAMIC, URI ####[address] , [place] [address] #### CBC, PTHNCA, VD25 ####[address] [address] Uric Acidon 09-19-2017 Urate mass conc 4.9 mg/dL Normal 2.4-5.7 [facility] Comment on above: Result Comment: Perf ormed at [address] [place] [address] Performed By: #### R ENP, URTPRT, MG, UAMIC, URI ####[address] , [place] [id number] #### CBC, PTHNCA, VD25 ####[address] [address] Urinalysis w/ Microon 2017 ----- Normal [place] Comment on above: Performed By: #### R ENP, URTPRT, MG, UAMIC, URI ####[address] , [place] [address]83 #### CBC, PTHNCA, VD25 ####[address] [address] Acetoacetic Acid,Ur Negative Normal NEG [place] Comment on above: Performed By: #### R ENP, URTPRT, MG, UAMIC, URI ####[address] [place] [address] #### CBC, PTHNCA, VD25 ####[address] [address] Bacteria TRACE Abnormal NONE [place] Comment on above: Performed By: #### R ENP, URTPRT, MG, UAMIC, URI ####[address] [place] [address] #### CBC, PTHNCA, VD25 ####[address] [address] Bilirubin, SemiQt,Ur Negative Normal NEG [facility] Comment on above: Performed By: #### R ENP, URTPRT, MG, UAMIC, URI ####[address] [place] [address] #### CBC, PTHNCA, VD25 ####[address] [address] Color YELLOW Normal YEL [place] Comment on above: Performed By: #### R ENP, URTPRT, MG, UAMIC, URI ####[address] [place] [address] #### CBC, PTHNCA, VD25 ####[address] [address] Epithelial cells 0 TO 2 Normal 0-25 [facility] Comment on above: Performed By: #### R ENP, URTPRT, MG, UAMIC, URI ####[address] [place] [address] #### CBC, PTHNCA, VD25 ####[address] [address] Glucose,Semi-qnt,Ur Negative Normal NEG [place] Comment on above: Performed By: #### R ENP, URTPRT, MG, UAMIC, URI ####[address] [place] [address] #### CBC, PTHNCA, VD25 ####[address] [address] Hemoglobin, Ur Negative Normal NEG [facility] Comment on above: Performed By: #### R ENP, URTPRT, MG, UAMIC, URI ####[address] [place] [address] #### CBC, PTHNCA, VD25 ####[address] [address] Leuckocyte Esterase Negative Normal NEG [place] Comment on above: Performed By: #### R ENP, URTPRT, MG, UAMIC, URI ####[address] [place] [address] #### CBC, PTHNCA, VD25 ####[address] [address] Mucus Strands TRACE Abnormal NONE [facility] Comment on above: Result Comment: Perf ormed at [address] [place] [address] Performed By: #### R ENP, URTPRT, MG, UAMIC, URI ####[address] [place] [address] #### CBC, PTHNCA, VD25 ####[address] [address] Nitrite,Ur Negative Normal NEG [place] Comment on above: Performed By: #### R ENP, URTPRT, MG, UAMIC, URI ####[address] [place] [address] #### CBC, PTHNCA, VD25 ####[address] [address] PH,Ur 6.0 Normal 5.0-9.0 [place] Comment on above: Performed By: #### R ENP, URTPRT, MG, UAMIC, URI ####[address] [place] [address] #### CBC, PTHNCA, VD25 ####[address] [address] Protein mass conc Negative Normal NEG [facility] Comment on above: Performed By: #### R ENP, URTPRT, MG, UAMIC, URI ####[address] [place] [address] #### CBC, PTHNCA, VD25 ####[address] [address] RBC Test strip #/vol (U) 0 TO 2 Normal 0-2 [facility] Comment on above: Performed By: #### R ENP, URTPRT, MG, UAMIC, URI ####[address] [place] [address] #### CBC, PTHNCA, VD25 ####[address] [address] Spec. [place],Ur 1.025 High 1.010-1.020 [facility] Comment on above: Performed By: #### R ENP, URTPRT, MG, UAMIC, URI ####[address] [place] [address] #### CBC, PTHNCA, VD25 ####[address] [address] Turbidity CLEAR Normal CLEAR [place] Comment on above: Performed By: #### R ENP, URTPRT, MG, UAMIC, URI ####[address] [place] [address] #### CBC, PTHNCA, VD25 ####[address] [address] Urine WBC's 0 TO 2 Normal 0-5 [facility] Comment on above: Performed By: #### R ENP, URTPRT, MG, UAMIC, URI ####[address] 8[address]1083 #### CBC, PTHNCA, VD25 ####[address] [address] Urobilinogen,Ur Normal Normal NORM [facility] Comment on above: Performed By: #### R ENP, URTPRT, MG, UAMIC, URI ####[address] [place] [address] #### CBC, PTHNCA, VD25 ####[address] [address] Amorphous Sediment NOT REPORTED Normal NONE [facility] Comment on above: Performed By: #### R ENP, URTPRT, MG, UAMIC, URI ####[address] [place] 1079983 #### CBC, PTHNCA, VD25 ####[address] [address] Casts NOT REPORTED Normal [place] Comment on above: Performed By: #### R ENP, URTPRT, MG, UAMIC, URI ####[address] [place] [address] #### CBC, PTHNCA, VD25 ####[address] [address] Comment NOT REPORTED Normal [place] Comment on above: Performed By: #### R ENP, URTPRT, MG, UAMIC, URI ####[address] [place] [address] #### CBC, PTHNCA, VD25 ####[address] [address] Crystals NOT REPORTED Normal NONE [place] Comment on above: Performed By: #### R ENP, URTPRT, MG, UAMIC, URI ####[address] [place] [address] #### CBC, PTHNCA, VD25 ####[address] [place] [address] Epithelial, Renal NOT REPORTED Normal 0 [facility] Comment on above: Performed By: #### R ENP, URTPRT, MG, UAMIC, URI ####[address] [place] [address] #### CBC, PTHNCA, VD25 ####[address] [address] Other Observations NOT REPORTED [facility]: Performed By: #### R ENP, URTPRT, MG, UAMIC, URI ####[address] [place] [address] #### CBC, PTHNCA, VD25 ####[address] [address] Trichomonas NOT REPORTED Normal NONE [facility] Comment on above: Performed By: #### R ENP, URTPRT, MG, UAMIC, URI ####[address] [place] [address] #### CBC, PTHNCA, VD25 ####[address] [address] Yeast NOT REPORTED Normal NONE [place] Comment on above: Performed By: #### R ENP, URTPRT, MG, UAMIC, URI ####[address] [place] [address] #### CBC, PTHNCA, VD25 ####[address] [place] [address] Vital Signs Date Time Vital Sign Value Performing Clinician Facility 09-28-2024 16:01-0400 Body height 163.83 cm Rajesh Mercer II Work Phone: [facility] 09-28-2024 16:01-0400 Body mass index (BMI) [Ratio] 46.5 kg/m2 Rajesh Mercer II Work Phone: [facility] 09-28-2024 16:01-0400 Body temperature 98 [degF] Rajesh Mercer II Work Phone: [facility] 09-28-2024 16:01-0400 Body weight 124.73 kg Rajesh Mercer II Work Phone: [facility] 09-28-2024 16:01-0400 Diastolic blood pressure 79 mm[Hg] Rajesh Mercer II Work Phone: [facility] 09-28-2024 16:01-0400 Heart rate 102 /min Rajesh Mercer II Work Phone: [facility] 09-28-2024 16:01-0400 Respiratory rate 20 /min Rajesh Mercer II Work Phone: [facility] 09-28-2024 16:01-0400 SaO2% (BldA) [Mass fraction] 96 % Rajesh Mercer II Work Phone: [facility] 09-28-2024 16:01-0400 Systolic blood pressure 146 mm[Hg] Rajesh Mercer II Work Phone: [facility] 09-01-2024 11:27-0400 Body height 160.7 cm Rajesh Mercer MD Work Phone: [facility] 09-01-2024 11:27-0400 Body mass index (BMI) [Ratio] 47.98 kg/m2 Rajesh Mercer MD Work Phone: [facility] 09-01-2024 11:27-0400 Body weight 123.83 kg Rajesh Mercer MD Work Phone: [facility] 09-01-2024 11:27-0400 Diastolic blood pressure 76 mm[Hg] Rajesh Mercer MD Work Phone: [facility] 09-01-2024 11:27-0400 Heart rate 76 /min Rajesh Mercer MD Work Phone: [facility] 09-01-2024 11:27-0400 SaO2% (BldA) [Mass fraction] 94 % Rajesh Mercer MD Work Phone: [facility] 09-01-2024 11:27-0400 Systolic blood pressure 130 mm[Hg] Rajesh Mercer MD Work Phone: [facility] 08-20-2024 11:37-0400 Body height 160.7 cm Rajesh Mercer MD Work Phone: [facility] 08-20-2024 11:37-0400 Diastolic blood pressure 72 mm[Hg] Rajesh Mercer MD Work Phone: [facility] 08-20-2024 11:37-0400 Heart rate 84 /min Rajesh Mercer MD Work Phone: [facility] 08-20-2024 11:37-0400 SaO2% (BldA) [Mass fraction] 95 % Rajesh Mercer MD Work Phone: [facility] 08-20-2024 11:37-0400 Systolic blood pressure 136 mm[Hg] Rajesh Mercer MD Work Phone: [facility] 08-18-2024 15:23-0400 Diastolic blood pressure 84 mm[Hg] JESSICA NKANSAH-AMANKRA [facility] 08-18-2024 15:23-0400 Heart rate 89 /min JESSICA NKANSAH-AMANKRA [facility] 08-18-2024 15:23-0400 Mean blood pressure 99 mm[Hg] JESSICA NKANSAH-AMANKRA [facility] 08-18-2024 15:23-0400 Systolic blood pressure 128 mm[Hg] JESSICA NKANSAH-AMANKRA [facility] 08-18-2024 15:22-0400 Heart rate 90 /min JESSICA SCOTTANSAH-AMANKRA [facility] 08-18-2024 15:22-0400 SaO2% (BldA) [Mass fraction] 98 % JESSICA NKANSAH-AMANKRA [facility] 08-18-2024 15:21-0400 Diastolic blood pressure 87 mm[Hg] JESSICA NKANSAH-AMANKRA [facility] 08-18-2024 15:21-0400 Mean blood pressure 111 mm[Hg] JESSICA NKANSAH-AMANKRA [facility] 08-18-2024 15:21-0400 Systolic blood pressure 159 mm[Hg] JESSICA SONIAANSAH-AMANKRA [facility] 06-18-2024 11:34-0500 Body height 160.7 cm Rajesh Mercer MD Work Phone: [facility] 06-18-2024 11:34-0500 Body mass index (BMI) [Ratio] 48.33 kg/m2 Rajesh Mercer MD Work Phone: [facility] 06-18-2024 11:34-0500 Body temperature 98.71 [degF] Rajesh Mercer MD Work Phone: [facility] 06-18-2024 11:34-0500 Body weight 124.74 kg Rajesh Mercer MD Work Phone: [facility] 06-18-2024 11:34-0500 Diastolic blood pressure 76 mm[Hg] Rajesh Mercer MD Work Phone: [facility] 06-18-2024 11:34-0500 Heart rate 83 /min Rajesh Mercer MD Work Phone: [facility] 06-18-2024 11:34-0500 SaO2% (BldA) [Mass fraction] 97 % Rajesh Mercer MD Work Phone: [facility] 06-18-2024 11:34-0500 Systolic blood pressure 128 mm[Hg] Rajesh Mercer MD Work Phone: [facility] 04-19-2024 15:50-0500 Body height 160.7 cm Rajesh Mercer MD Work Phone: [facility] 04-19-2024 15:50-0500 Body mass index (BMI) [Ratio] 48.86 kg/m2 Rajesh Mercer MD Work Phone: [facility] 04-19-2024 15:50-0500 Body weight 126.1 kg Rajesh Mercer MD Work Phone: [facility] 04-19-2024 15:50-0500 Diastolic blood pressure 70 mm[Hg] Rajesh Mercer MD Work Phone: [facility] 04-19-2024 15:50-0500 Heart rate 90 /min Rajesh Mercer MD Work Phone: [facility] 04-19-2024 15:50-0500 SaO2% (BldA) [Mass fraction] 96 % Rajesh Mercer MD Work Phone: [facility] 04-19-2024 15:50-0500 Systolic blood pressure 122 mm[Hg] Rajesh Mercer MD Work Phone: [facility] 04-13-2024 15:57-0500 Body height 163.83 cm Rajesh Mercer II Work Phone: [facility] 04-13-2024 15:57-0500 Body mass index (BMI) [Ratio] 46.8 kg/m2 Rajesh Mercer II Work Phone: [facility] 04-13-2024 15:57-0500 Body temperature 97 [degF] Rajesh Mercer II Work Phone: [facility] 04-13-2024 15:57-0500 Body weight 125.75 kg Rajesh Mercer II Work Phone: [facility] 04-13-2024 15:57-0500 Diastolic blood pressure 73 mm[Hg] Rajesh Mercer II Work Phone: [facility] 04-13-2024 15:57-0500 Heart rate 88 /min Rajesh Mercer II Work Phone: [facility] 04-13-2024 15:57-0500 Respiratory rate 20 /min Rajesh Mercer II Work Phone: [facility] 04-13-2024 15:57-0500 SaO2% (BldA) [Mass fraction] 94 % Rajesh Mercer II Work Phone: [facility] 04-13-2024 15:57-0500 Systolic blood pressure 126 mm[Hg] Rajesh Mercer II Work Phone: [facility] 02-26-2024 12:05-0400 Body mass index (BMI) [Ratio] 48.22 kg/m2 Gina Bustillo MD Work Phone: [facility] 02-26-2024 12:05-0400 Body weight 127.42 kg Gina Bustillo MD Work Phone: [facility] 02-26-2024 12:05-0400 Diastolic blood pressure 81 mm[Hg] Gina Bustillo MD Work Phone: [facility] 02-26-2024 12:05-0400 Heart rate 81 /min Gina Bustillo MD Work Phone: [facility] [employer] [facility] 02-26-2024 12:05-0400 Systolic blood pressure 118 mm[Hg] Gina Bustillo MD Work Phone: [facility] [employer] [facility] 01-16-2024 12:43-0400 Body height 160.7 cm Gina MCGREGOR Work Phone: [facility] 01-16-2024 12:43-0400 Body mass index (BMI) [Ratio] 50.47 kg/m2 Gina MCGREGOR Work Phone: [facility] 01-16-2024 12:43-0400 Body weight 130.27 kg Gnia Hemmer PA Work Phone: [facility] 01-16-2024 12:43-0400 Diastolic blood pressure 76 mm[Hg] Gina Hemmer PA Work Phone: [facility] 01-16-2024 12:43-0400 Heart rate 89 /min Gina Hemmer PA Work Phone: [facility] 01-16-2024 12:43-0400 Respiratory rate 16 /min Gina Hemmer PA Work Phone: [facility] 01-16-2024 12:43-0400 SaO2% (BldA) [Mass fraction] 96 % Gina Hemmer PA Work Phone: [facility] 01-16-2024 12:43-0400 Systolic blood pressure 124 mm[Hg] Gina Hemmer PA Work Phone: [facility] 11-25-2023 11:52-0400 Body mass index (BMI) [Ratio] 49.56 kg/m2 Maggi Fabian HOP TRAINER-RAILROAD CAR CHECKER Work Phone: [facility] [employer] [facility] 11-25-2023 11:52-0400 Body weight 130.95 kg Maggi Fabian HOP TRAINER-RAILROAD CAR CHECKER Work Phone: [facility] 11-25-2023 11:52-0400 Diastolic blood pressure 72 mm[Hg] Maggi Fabian HOP TRAINER-RAILROAD CAR CHECKER Work Phone: [facility] [employer] [facility] 11-25-2023 11:52-0400 Heart rate 88 /min Maggi Fabian HOP TRAINER-RAILROAD CAR CHECKER Work Phone: [facility] [employer] [facility] 11-25-2023 11:52-0400 Systolic blood pressure 126 mm[Hg] Maggi Fabian HOP TRAINER-RAILROAD CAR CHECKER Work Phone: [facility] 11-13-2023 15:48-0400 Body height 163.83 cm II Rajesh Mercer Work Phone: [facility] 11-13-2023 15:48-0400 Body mass index (BMI) [Ratio] 48.8 kg/m2 II Rajesh Mercer Work Phone: [facility] 11-13-2023 15:48-0400 Body temperature 97.3 [degF] II Rajesh Mercer Work Phone: [facility] 11-13-2023 15:48-0400 Body weight 131.08 kg II Rajesh Mercer Work Phone: [facility] 11-13-2023 15:48-0400 Diastolic blood pressure 78 mm[Hg] II Rajesh Mercer Work Phone: [facility] 11-13-2023 15:48-0400 Heart rate 88 /min II Rajesh Mercer Work Phone: [facility] 11-13-2023 15:48-0400 Respiratory rate 20 /min II Rajesh Mercer Work Phone: [facility] 11-13-2023 15:48-0400 SaO2% (BldA) [Mass fraction] 95 % II Rajesh Mercer Work Phone: [facility] 11-13-2023 15:48-0400 Systolic blood pressure 148 mm[Hg] II Rajesh Mercer Work Phone: [facility] 08-08-2023 13:25-0400 Body mass index (BMI) [Ratio] 49.88 kg/m2 Maggi Hughesy HOP TRAINER-RAILROAD CAR CHECKER Work Phone: [facility] 08-08-2023 13:25-0400 Body weight 131.81 kg Maggimarga Hughesy HOP TRAINER-RAILROAD CAR CHECKER Work Phone: [employer] [facility] 08-08-2023 13:25-0400 Diastolic blood pressure 82 mm[Hg] Maggi Fabian HOP TRAINER-RAILROAD CAR CHECKER Work Phone: [facility] 08-08-2023 13:25-0400 Heart rate 82 /min Maggi Fabian HOP TRAINER-RAILROAD CAR CHECKER Work Phone: [facility] 08-08-2023 13:25-0400 Systolic blood pressure 142 mm[Hg] Maggi Pena HOP TRAINER-RAILROAD CAR CHECKER Work Phone: [employer] 07-21-2023 15:56-0400 Body height 163.83 cm II Rajesh Mercer Work Phone: [facility] 07-21-2023 15:56-0400 Body mass index (BMI) [Ratio] 48.9 kg/m2 II Rajesh Mercer Work Phone: [facility] 07-21-2023 15:56-0400 Body temperature 97.5 [degF] II Rajesh Mercer Work Phone: [facility] 07-21-2023 15:56-0400 Body weight 131.25 kg II Rajesh Mercer Work Phone: [facility] 07-21-2023 15:56-0400 Diastolic blood pressure 78 mm[Hg] II Rajesh Mercer Work Phone: [facility] 07-21-2023 15:56-0400 Heart rate 81 /min II Rajesh Mercer Work Phone: [facility] 07-21-2023 15:56-0400 Respiratory rate 20 /min II Rajesh Mercer Work Phone: [facility] 07-21-2023 15:56-0400 SaO2% (BldA) [Mass fraction] 94 % II Rajesh Mercer Work Phone: [facility] 07-21-2023 15:56-0400 Systolic blood pressure 142 mm[Hg] II Rajesh Mercer Work Phone: [facility] 03-04-2023 15:15-0400 Body height 163.83 cm Qamar Rowan Other [employer] Other 03-04-2023 15:15-0400 Body mass index (BMI) [Ratio] 49.34 kg/m2 Qamar Rowan Other [employer] Other 03-04-2023 15:15-0400 Body temperature 98 [degF] Hectorchazer Harpal Other [employer] Other 03-04-2023 15:15-0400 Body weight 132.45 kg Christchazer Harpal Other [employer] Other 03-04-2023 15:15-0400 Diastolic blood pressure 78 mm[Hg] Mehraner Harpal Other [employer] Other 03-04-2023 15:15-0400 Respiratory rate 20 /min Mehraner Harpal Other [employer] Other 03-04-2023 15:15-0400 SaO2% (BldA) [Mass fraction] 96 % Mehraner Harpal Other [employer] Other 03-04-2023 15:15-0400 Systolic blood pressure 148 mm[Hg] Hectorchazer Harpal Other [employer] Other 11-27-2022 16:00-0400 Body height 163.83 cm Dilan Sergio Other [employer] Other 11-27-2022 16:00-0400 Body mass index (BMI) [Ratio] 49.58 kg/m2 Dilan Sergio Other [employer] Other 11-27-2022 16:00-0400 Body temperature 97.2 [degF] Dilan Sergio Other [employer] Other 11-27-2022 16:00-0400 Body weight 133.09 kg Dilan Sergio Other [employer] Other 11-27-2022 16:00-0400 Diastolic blood pressure 46 mm[Hg] Dilan Sergio Other [employer] Other 11-27-2022 16:00-0400 Respiratory rate 20 /min Dilan Sergio Other [employer] Other 11-27-2022 16:00-0400 SaO2% (BldA) [Mass fraction] 95 % Dilan Sergio Other [employer] Other 11-27-2022 16:00-0400 Systolic blood pressure 149 mm[Hg] Dilan Sergio Other [employer] Other 09-03-2022 16:15-0400 Body height 163.83 cm Mehraner Harpal Other [employer] Other 09-03-2022 16:15-0400 Body mass index (BMI) [Ratio] 49 kg/m2 Mehraner Harpal Other [employer] Other 09-03-2022 16:15-0400 Body temperature 97.2 [degF] Mehraner Harpal Other [employer] Other 09-03-2022 16:15-0400 Body weight 131.54 kg Mehraner Harpal Other [employer] Other 09-03-2022 16:15-0400 Diastolic blood pressure 73 mm[Hg] Mehraner Harpal Other [employer] Other 09-03-2022 16:15-0400 Respiratory rate 20 /min Qamar Rowan Other [employer] Other 09-03-2022 16:15-0400 SaO2% (BldA) [Mass fraction] 96 % Qamar Rowan Other [employer] Other 09-03-2022 16:15-0400 Systolic blood pressure 123 mm[Hg] Qamar Rowan Other [employer] Other 08-29-2022 14:40-0400 Body height 163.83 cm Dilan Sergio Other [employer] Other 08-29-2022 14:40-0400 Body mass index (BMI) [Ratio] 50.22 kg/m2 Dilan Sergio Other [employer] Other 08-29-2022 14:40-0400 Body temperature 97.6 [degF] Dilan Sergio Other [employer] Other 08-29-2022 14:40-0400 Body weight 134.81 kg Dilan Sergio Other [employer] Other 08-29-2022 14:40-0400 Diastolic blood pressure 72 mm[Hg] Dilan Sergio Other [employer] Other 08-29-2022 14:40-0400 Respiratory rate 20 /min Dilan Sergio Other [employer] Other 08-29-2022 14:40-0400 SaO2% (BldA) [Mass fraction] 91 % Dilan Sergio Other [employer] Other 08-29-2022 14:40-0400 Systolic blood pressure 140 mm[Hg] Dilan Sergio Other [employer] Other 07-15-2022 16:00-0400 Body height 163.83 cm Dilan Sergio Other [employer] Other 07-15-2022 16:00-0400 Body mass index (BMI) [Ratio] 49.82 kg/m2 Dilan Sergio Other [employer] Other 07-15-2022 16:00-0400 Body temperature 97.3 [degF] Dilan Sergio Other [employer] Other 07-15-2022 16:00-0400 Body weight 133.72 kg Dilan Sergio Other [employer] Other 07-15-2022 16:00-0400 Diastolic blood pressure 60 mm[Hg] Dilan Sergio Other [employer] Other 07-15-2022 16:00-0400 Respiratory rate 20 /min Dilan Sergio Other [employer] Other 07-15-2022 16:00-0400 SaO2% (BldA) [Mass fraction] 96 % Dilan Sergio Other [employer] Other 07-15-2022 16:00-0400 Systolic blood pressure 130 mm[Hg] Dilan Sergio Other [employer] Other 03-04-2022 14:30-0400 Body height 163.83 cm Qamar Pandano Other [employer] Other 03-04-2022 14:30-0400 Body mass index (BMI) [Ratio] 49.68 kg/m2 Qamar Foremandano Other [employer] Other 03-04-2022 14:30-0400 Body temperature 97.3 [degF] Hectorjaimie Pandano Other [employer] Other 03-04-2022 14:30-0400 Body weight 133.36 kg Qamar Foremandano Other [employer] Other 03-04-2022 14:30-0400 Diastolic blood pressure 84 mm[Hg] Mehranmarissa ForemanHarpal Other [employer] Other 03-04-2022 14:30-0400 Respiratory rate 20 /min Qamar Pandano Other [employer] Other 03-04-2022 14:30-0400 SaO2% (BldA) [Mass fraction] 96 % Qamar Pandano Other [employer] Other 03-04-2022 14:30-0400 Systolic blood pressure 156 mm[Hg] Mehraner Harpal Other [employer] Other 02-21-2022 16:20-0400 Body height 163.83 cm Dilan Sergio Other [employer] Other 02-21-2022 16:20-0400 Body mass index (BMI) [Ratio] 51.07 kg/m2 Dilan Sergio Other [employer] Other 02-21-2022 16:20-0400 Body temperature 97.1 [degF] Dilan Sergio Other [employer] Other 02-21-2022 16:20-0400 Body weight 137.08 kg Dilan Sergio Other [employer] Other 02-21-2022 16:20-0400 Diastolic blood pressure 81 mm[Hg] Dilan Sergio Other [employer] Other 02-21-2022 16:20-0400 Respiratory rate 20 /min Dilan Sergio Other [employer] Other 02-21-2022 16:20-0400 SaO2% (BldA) [Mass fraction] 96 % Dilan Sergio Other [employer] Other 02-21-2022 16:20-0400 Systolic blood pressure 138 mm[Hg] Dilan Sergio Other [employer] Other 10-23-2021 17:20-0400 Body height 163.83 cm Dilan Sergio Other [employer] Other 10-23-2021 17:20-0400 Body mass index (BMI) [Ratio] 50.12 kg/m2 Dilan Sergio Other [employer] Other 10-23-2021 17:20-0400 Body temperature 97.2 [degF] Dilan Sergio Other [employer] Other 10-23-2021 17:20-0400 Body weight 134.54 kg Dilan Sergio Other [employer] Other 10-23-2021 17:20-0400 Diastolic blood pressure 84 mm[Hg] Dilan Sergio Other [employer] Other 10-23-2021 17:20-0400 Respiratory rate 20 /min Dilan Sergio Other [employer] Other 10-23-2021 17:20-0400 SaO2% (BldA) [Mass fraction] 94 % Dilan Sergio Other [employer] Other 10-23-2021 17:20-0400 Systolic blood pressure 171 mm[Hg] Dilan Sergio Other [employer] Other 10-02-2021 15:15-0400 Body height 163.83 cm Qamar Rowan Other [employer] Other 10-02-2021 15:15-0400 Body mass index (BMI) [Ratio] 49.51 kg/m2 Qamar Rowan Other [employer] Other 10-02-2021 15:15-0400 Body temperature 96.5 [degF] Qamar Rowan Other [employer] Other 10-02-2021 15:15-0400 Body weight 132.9 kg Qamar Pandano Other [employer] Other 10-02-2021 15:15-0400 Diastolic blood pressure 89 mm[Hg] Qamar Pandano Other [employer] Other 10-02-2021 15:15-0400 Respiratory rate 20 /min Qamar Rowan Other [employer] Other 10-02-2021 15:15-0400 SaO2% (BldA) [Mass fraction] 95 % Qamar Rowan Other [employer] Other 10-02-2021 15:15-0400 Systolic blood pressure 154 mm[Hg] Qamar Rowan Other [employer] Other 04-18-2021 17:20-0500 Body height 163.83 cm Dilan Sergio Other [employer] Other 04-18-2021 17:20-0500 Body mass index (BMI) [Ratio] 49.85 kg/m2 Dilan Sergio Other [employer] Other 04-18-2021 17:20-0500 Body temperature 97 [degF] Dilan Sergio Other [employer] Other 04-18-2021 17:20-0500 Body weight 133.81 kg Dilan Sergio Other [employer] Other 04-18-2021 17:20-0500 Diastolic blood pressure 70 mm[Hg] Dilan Sergio Other [employer] Other 04-18-2021 17:20-0500 Respiratory rate 24 /min Dilan Sergio Other [employer] Other 04-18-2021 17:20-0500 SaO2% (BldA) [Mass fraction] 97 % Dilan Sergio Other [employer] Other 04-18-2021 17:20-0500 Systolic blood pressure 130 mm[Hg] Dilan Nguyễn Other [employer] Other 04-02-2021 15:30-0500 Body height 163.83 cm Christchazer Harpal Other [employer] Other 04-02-2021 15:30-0500 Body mass index (BMI) [Ratio] 49.51 kg/m2 Christopher Harpal Other [employer] Other 04-02-2021 15:30-0500 Body temperature 97.1 [degF] Christchazer Harpal Other [employer] Other 04-02-2021 15:30-0500 Body weight 132.9 kg Christopher Harpal Other [employer] Other 04-02-2021 15:30-0500 Diastolic blood pressure 88 mm[Hg] Christhcazer Harpal Other [employer] Other 04-02-2021 15:30-0500 Respiratory rate 20 /min Christchazer Harpal Other [employer] Other 04-02-2021 15:30-0500 SaO2% (BldA) [Mass fraction] 97 % Christopher Harpal Other [employer] Other 04-02-2021 15:30-0500 Systolic blood pressure 172 mm[Hg] Christchazer Harpal Other [employer] Other 11-27-2020 14:25-0400 Body height 162.79 cm No PCP None [facility] Work Phone: 11-27-2020 14:25-0400 Body mass index (BMI) [Ratio] 50.57 kg/m2 No PCP None [facility] Work Phone: 11-27-2020 14:25-0400 Body surface area Derived from formula 2.31 m2 No PCP None [facility] Work Phone: 11-27-2020 14:25-0400 Body temperature 36.4 [degF] No PCP None [facility] Work Phone: 11-27-2020 14:25-0400 Body weight 134.01 kg No PCP None [facility] Work Phone: 11-27-2020 14:25-0400 Diastolic blood pressure 79 mm[Hg] No PCP None [facility] Work Phone: 11-27-2020 14:25-0400 Heart rate 75 /min No PCP None [facility] Work Phone: 11-27-2020 14:25-0400 Respiratory rate 16 /min No PCP None [facility] Work Phone: 11-27-2020 14:25-0400 SaO2% (BldA) [Mass fraction] 96 % No PCP None [facility] Work Phone: 11-27-2020 14:25-0400 Systolic blood pressure 166 mm[Hg] No PCP None [facility] Work Phone: 11-27-2020 14:25-0400 4 1 No PCP None [facility] Work Phone: Comment on above: [employer] 1950 23:00-0500 >na< Reyna Preston Dept. of Dermatology Encounters Encounter Date Encounter Type Care Provider Facility Start: 10-08-2024 End: 10-08-2024 Refill Maggi Pena APRN-RAILROAD CAR CHECKER Work Phone: [facility] Comment on above: Type 2 diabetes gauri itus with hyperglycemia, with long-term current use of insulin ([facility]) Start: 10-04-2024 End: 10-04-2024 Patient encounter procedure Chanell Tatum MD Work Phone: Urology Comment on above: Calculus of kidney ( Primary Dx) Start: 10-04-2024 End: 10-04-2024 ambulatory [facility] Facility:[facility] Start: 09-28-2024 End: 09-28-2024 ambulatory Rajesh Mercer II Work Phone: [facility] Work Phone: Start: 09-28-2024 End: 09-28-2024 Patient encounter procedure Rajesh Mercer II [facility] Work Phone: Start: 09-22-2024 Office outpatient vi sit 25 minutes Dez Gallagher Jr [facility] Start: 09-22-2024 ambulatory Dez Gallagher Jr [facility] [place] Start: 09-19-2024 End: 09-19-2024 Telephone encounter Chanell Tatum MD Work Phone: Urology Start: 09-16-2024 ambulatory [facility] Facility:[facility] Start: 09-16-2024 End: 09-16-2024 Subsequent hospital visit [...] Bamboo flowsheet Kailee Nova DPM Work Phone: [facility] Start: 09-15-2024 End: 09-15-2024 Bamboo flowsheet Kailee Nova DPM Work Phone: [facility] Start: 09-13-2024 End: 09-13-2024 Patient encounter procedure Chanell Tatum MD Work Phone: Urology Comment on above: Calculus of kidney ( Primary Dx); Calculus of bladder Start: 09-13-2024 End: 09-13-2024 ambulatory [facility] Facility:[facility] Start: 09-07-2024 End: 09-07-2024 Telephone encounter Chanell Tatum MD Work Phone: Urology Start: 09-06-2024 End: 09-06-2024 [facility] Start: 09-01-2024 End: 09-01-2024 Bamboo flowsheet Rajesh [...] / Non-visit Rajesh Mercer II Work Phone: [facility] Work Phone: Start: 08-27-2024 End: 08-27-2024 External Result Encounter Rajesh Mercer MD Work Phone: [facility] External Department Unsolicited Start: 08-27-2024 End: 08-27-2024 External Result Encounter Rajesh Mercer MD Work Phone: [facility] External Department Unsolicited Start: 08-27-2024 End: 08-27-2024 Patient encounter procedure Rajesh Mercer II Work Phone: [facility] Work Phone: Start: 08-27-2024 End: 08-27-2024 ambulatory Rajesh Mercer II Work Phone: [facility] Work Phone: Start: 08-20-2024 End: [...] Start: 08-18-2024 End: 08-18-2024 ambulatory JESSICA ELIAS-ANN Facility[facility] Start: 08-18-2024 End: 08-18-2024 Patient encounter procedure JESSICA BRISCOE [facility] Start: 07-16-2024 End: 07-16-2024 ambulatory RAJESH MERCER Not Available Start: 07-09-2024 End: 09-03-2024 Pre-admission assessment JESSICA BRISCOE [facility] Start: 07-09-2024 End: 07-09-2024 ambulatory JESSICA ELIAS-ANN Facility:[facility] Start: 07-08-2024 ambulatory JESSICA ELIAS-ANN Facility: [facility] Start: 2024 End: 07-03-2024 Non-patient / Non-visit Rajesh Mercer II Work Phone: [facility] Work Phone: Start: 06-30-2024 End: 06-30-2024 ambulatory Rajesh Mercer II Work Phone: [facility] Work Phone: Start: 06-30-2024 End: 06-30-2024 Departed Referred Rajesh Mercer II Work Phone: [facility] Start: 06-30-2024 End: 2024 Clinisync Result [...] / Non-visit Rajesh Mercer II Work Phone: [facility] Work Phone: Start: 05-31-2024 End: 06-02-2024 Clinisync Result Encounter Generic External Data Provider [facility] External Department Unsolicited Start: 05-31-2024 End: 06-02-2024 Clinisync Result Encounter Generic External Data Provider [facility] External Department Unsolicited Start: 05-21-2024 ambulatory Dez Gallagher Jr [facility] [place] Start: 04-22-2024 End: 04-22-2024 Office outpatient visit 10 minutes Kailee LAMM Work Phone: [facility] Comment on above: Ingrown toenail ([facility] Dx); Left foot pain Start: 04-22-2024 End: 04-22-2024 ambulatory KAILEE NOVA Not Available Start: 04-22-2024 End: 04-22-2024 Bamboo flowsheet Kailee Nova DPM Work Phone: [facility] Start: 04-22-2024 End: 04-22-2024 Bamboo flowsheet Kailee Nova DPM Work Phone: [facility] Start: 04-19-2024 End: 04-19-2024 Assay of hemosiderin, quant Rajesh Mercer MD Work Phone: [facility] Start: 04-19-2024 End: 04-19-2024 Patient encounter [...] encounter procedure Rajesh Mercer II Work Phone: [facility] Work Phone: Start: 04-13-2024 End: 04-13-2024 Orders Only Gina Bustillo MD Work Phone: [facility] Comment on above: Tinea cruris (Primar y Dx) Start: 04-12-2024 End: 04-12-2024 Patient encounter procedure Rajesh Mercer II Work Phone: [facility] [place] Work Phone: Start: 04-12-2024 End: 04-12-2024 ambulatory Rajesh Mercer Facility:[facility] Start: 03-25-2024 End: 03-25-2024 Office outpatient visit 15 minutes Kailee Nova DPM Work Phone: [facility] Comment on above: Ingrown toenail (Shy nimco Dx); Left foot pain; Onychomycosis; Type 2 diabetes mellitus without complication, without long-term current use of insulin (CMS/HCC) Start: 03-25-2024 End: 03-25-2024 ambulatory KAILEE NOVA Not Available Start: 03-25-2024 End: 03-25-2024 Bamboo flowsheet Kailee Nova DPM Work Phone: [facility] Start: 03-25-2024 End: 03-25-2024 Bamboo flowsheet Kailee Nova DPM Work Phone: [facility] Start: 03-03-2024 ambulatory Dez Gallagher [facility] [place] Start: 03-03-2024 End: 03-03-2024 Refill Gina Bustillo MD Work Phone: [facility] Comment on above: Type 2 diabetes gauri itus with hypoglycemia without coma, without long-term current use of insulin ([facility]) Start: 03-01-2024 End: 03-01-2024 Refill Jemima Friday SKIVER MACHINE Work Phone: [facility] Comment on above: Primary osteoarthrit is of both knees (Primary Dx) Start: 02-26-2024 End: 02-26-2024 Office outpatient visit 25 minutes Gina Bustillo MD Work Phone: [facility] Comment on above: Type 2 diabetes gauri itus with hypoglycemia without coma, without long-term current use of insulin ([facility]) (Primary Dx); Primary hypertension; Mixed hyperlipidemia Start: 02-26-2024 End: 02-26-2024 [facility] Start: 02-24-2024 End: 02-24-2024 Office outpatient visit 10 minutes Kailee Nova DPM Work Phone: [facility] Comment on above: Ingrown toenail (Shy nimco Dx); Left foot pain Start: 02-24-2024 End: 02-24-2024 ambulatory KAILEE NOVA Not Available Start: 01-29-2024 End: 01-29-2024 Refill Gina MCGREGOR Work Phone: [facility] Comment on above: Primary osteoarthrit is of both knees Start: 01-26-2024 End: 01-26-2024 Office outpatient visit 10 minutes Kailee Nova DPM Work Phone: [facility] Comment on above: Ingrown toenail (Shy nimco Dx); Left foot pain Start: 01-26-2024 End: 01-26-2024 ambulatory KAILEE NOVA Not Available Start: 01-26-2024 End: 01-26-2024 Bamboo flowsheet Kailee Nova DPM Work Phone: [facility] Start: 01-26-2024 End: 01-26-2024 Bamboo flowsheet Kailee Nova DPM Work Phone: [facility] Start: 01-16-2024 End: 01-16-2024 Bamboo [...] Available Start: 12-31-2023 ambulatory Dez Gallagher Jr [facility] Start: 12-08-2023 End: 12-08-2023 ambulatory KAILEE NOVA Not Available Start: 11-25-2023 End: 11-25-2023 Office outpatient visit 25 minutes Maggi Pena H[employer] TRAINER-[employer]RO[employer]ER Work Phone: [facility] Comment on above: Type 2 diabetes gauri itus with hyperglycemia, with long-term current use of insulin ([facility]) (Primary Dx); Primary hypertension; Mixed hyperlipidemia Start: 11-25-2023 End: 11-25-2023 ambulatory [facility] Start: 11-13-2023 End: 11-13-2023 ambulatory II Rajesh Mercer Work Phone: [facility] Work Phone: Start: 11-13-2023 End: 11-13-2023 Patient encounter procedure II Rajesh Mercer Work Phone: [facility] Work Phone: Start: 11-10-2023 End: 11-10-2023 Patient encounter procedure II Rajesh Mercer Work Phone: [facility] [place] Work Phone: Start: 11-10-2023 End: 11-10-2023 ambulatory Rajesh Mercer Facility:[facility] Start: 11-08-2023 End: 11-10-2023 Zaen Bustillo MD Work Phone: [facility] Comment on above: Type 2 diabetes gauri itus with hyperglycemia, with long-term current use of insulin ([facility]) Start: 10-27-2023 End: 10-27-2023 Telephone encounter Maggi Pena HOP TRAINER-[employer]ILROAD [employer] CHECKER Work Phone: [facility] Start: 10-22-2023 End: 10-22-2023 ambulatory KAILEE NOVA Not Available Start: 10-16-2023 End: 10-16-2023 Refill Gina Bustillo MD Work Phone: [facility] Comment on above: Type 2 diabetes gauri itus with hyperglycemia, with long-term current use of insulin ([facility]) Start: 09-25-2023 End: 09-25-2023 Refill Maggi Pena HOP TRAINER-[employer]ILROAD [employer] CHECKER Work Phone: [facility] Comment on above: Type 2 diabetes gauri itus with hyperglycemia, with long-term current use of insulin ([facility]) Start: 09-03-2023 End: 09-03-2023 ambulatory [facility] Start: 09-03-2023 End: 09-03-2023 Office outpatient visit 25 minutes Reyna Preston MD Work Phone: [facility] Comment on above: Fissure in skin [...] hyperglycemia, with long-term current use of insulin ([facility]) Start: 08-08-2023 End: 08-08-2023 ambulatory MAGGI PENA [facility] Start: 08-08-2023 End: 08-08-2023 Office outpatient visit 25 minutes Maggi Pena HOP TRAINER-[employer]RO[employer] CHECKER Work Phone: [facility] Comment on above: Type 2 diabetes gauri itus with hyperglycemia, with long-term current use of insulin ([facility]) (Primary Dx); Primary hypertension Start: 07-26-2023 Refill Gina rodarte MD Work Phone: [facility] Comment on above: Type 2 diabetes gauri itus with hyperglycemia, with long-term current use of insulin ([facility]) Start: 07-21-2023 End: 07-21-2023 ambulatory II Rajesh Mercer Work Phone: [facility] Work Phone: Start: 07-21-2023 End: 07-21-2023 Patient encounter procedure II Rajesh Mercer Work Phone: [facility] [place] Work Phone: Start: 07-21-2023 End: 07-21-2023 ambulatory II Rajesh Mercer Work Phone: [facility] Work Phone: Start: 07-21-2023 End: 07-21-2023 Patient encounter procedure II Rajesh Mercer Work Phone: [facility] Work Phone: Start: 07-18-2023 End: 07-18-2023 ambulatory II Rajesh Mercer Work Phone: [facility] Work Phone: Start: 07-18-2023 End: 07-18-2023 Patient encounter procedure II Rajesh Mercer Work Phone: [facility] [place] Work Phone: Start: 2023 Refill Gina rodarte MD Work Phone: [facility] Comment on above: Type 2 diabetes gauri itus with hypoglycemia without coma, without long-term current use of insulin ([facility]) (Primary Dx) Start: 06-29-2023 Refill Maggi Pena HOP TRAINER-[employer]ILROAD [employer] CHECKER Work Phone: [facility] Comment on above: Type 2 diabetes gauri itus with hyperglycemia, with long-term current use of insulin ([facility]) Start: 03-04-2023 End: 03-04-2023 ambulatory Qamar Rowan Other [employer] Other Start: 03-04-2023 Office outpatient vi sit 15 minutes Qamar Rowan [facility] Start: 03-03-2023 End: 03-03-2023 ambulatory [facility] Start: 03-03-2023 End: 03-03-2023 Office outpatient visit 25 minutes Reyna Preston MD Work Phone: [facility] Comment on above: Furuncle (Primary Dx ); Melanocytic nevus, unspecified location; Lentigo; Hemangioma of other sites; Seborrheic keratosis; Scar conditions and fibrosis of skin; Personal history of malignant melanoma of skin Start: 12-20-2022 End: 12-20-2022 ambulatory Dilan Sergio Other [employer] Other Start: 12-20-2022 Telephone encounter Dilan Sergio [facility] Start: 12-17-2022 End: 12-17-2022 ambulatory Dilan Sergio Other [employer] Other Start: 12-17-2022 Telephone encounter Dilan Sergio [facility] Start: 11-27-2022 End: 11-27-2022 ambulatory Dilan Sergio Other [employer] Other Start: 11-27-2022 Office outpatient vi sit 25 minutes Dilan Sergio [facility] Start: 09-09-2022 ambulatory Reyna Preston [facility] ity:[id number] Start: 09-03-2022 End: 09-03-2022 ambulatory Qamar Pandano Other [employer] Other Start: 09-03-2022 Office outpatient vi sit 15 minutes Christopher Harpal [facility] Start: 08-29-2022 End: 08-29-2022 ambulatory Dilan Sergio Other [employer] Other Start: 08-29-2022 Office outpatient vi sit 15 minutes Dilan Sergio [facility] [place] Start: 08-26-2022 ambulatory Rajesh Mercer II Facility:[id number] Start: 08-26-2022 ambulatory Rajesh Mercer II Facility:[id number] Start: 08-19-2022 End: 08-19-2022 ambulatory Dilan Sergio Other [employer] Other Start: 08-19-2022 Telephone encounter Dilan Sergio [facility] Start: 07-15-2022 End: 07-15-2022 ambulatory Dilan Sergio Other [employer] Other Start: 07-15-2022 Office outpatient vi sit 25 minutes Dilan Sergio [facility] Start: 07-13-2022 End: 07-13-2022 ambulatory II Rajesh Mercer Work Phone: [facility] Work Phone: Start: 07-13-2022 End: 07-13-2022 Patient encounter procedure II Rajesh Mercer Work Phone: [facility] [place] Work Phone: Start: 07-10-2022 ambulatory Rajesh Mercer II Facility:[id number] Start: 07-09-2022 End: 07-10-2022 Office outpatient visit 15 minutes Reyna Preston Dept. of Dermatology Start: 07-09-2022 End: 07-10-2022 Office outpatient visit 25 minutes Reyna Preston Dept. of Dermatology Start: 05-13-2022 End: 05-13-2022 ambulatory II Raejsh Mercer Work Phone: [facility] Work Phone: Start: 05-13-2022 End: 05-13-2022 Patient encounter procedure II Rajesh Mercer Work Phone: [facility] Work Phone: Start: 05-08-2022 End: 05-08-2022 ambulatory Dilan Sergio Other [employer] Other Start: 05-08-2022 Telephone encounter Dilan Sergio [facility] Start: 03-07-2022 End: 03-07-2022 ambulatory Dilan Sergio Other [employer] Other Start: 03-07-2022 Telephone encounter Dilan Sergio [facility] Start: 03-06-2022 End: 03-06-2022 ambulatory II Rajesh Mercer Work Phone: [facility] Work Phone: Start: 03-06-2022 End: 03-06-2022 Patient encounter procedure II Rajesh Mercer Work Phone: [facility] Start: 03-04-2022 End: 03-04-2022 ambulatory Christopher Harpal Other [employer] Other Start: 03-04-2022 Office outpatient vi sit 15 minutes Christopher Harpal [facility] Start: 02-21-2022 End: 02-21-2022 ambulatory Dilan Sergio Other [employer] Other Start: 02-21-2022 Office outpatient vi sit 25 minutes Dilan Sergio [facility] Start: 02-20-2022 End: 02-20-2022 ambulatory II Rajesh Mercer Work Phone: [facility] Work Phone: Start: 02-20-2022 End: 02-20-2022 Patient encounter procedure II Rajesh Mercer Work Phone: [facility] [place] Start: 11-01-2021 End: 11-01-2021 ambulatory Dilan Sergio Other [employer] Other Start: 11-01-2021 Telephone encounter Dilan Sergio [facility] Start: 10-23-2021 End: 10-23-2021 ambulatory Dilan Sergio Other [employer] Other Start: 10-23-2021 Office outpatient vi sit 25 minutes Dilan Sergio [facility] Start: 10-19-2021 ambulatory Rajesh Mercer II Facility:[id number] Start: 10-02-2021 End: 10-02-2021 ambulatory Qamar Pandano Other [employer] Other Start: 10-02-2021 Office outpatient vi sit 15 minutes Christopher Harpal [facility] Start: 08-15-2021 End: 08-15-2021 Office outpatient visit 15 minutes Reyna Preston Dept. of Dermatology Start: 08-06-2021 End: 08-06-2021 ambulatory Dilan Sergio Other [employer] Other Start: 08-06-2021 Telephone encounter Dilan Sergio [facility] Start: 08-03-2021 End: 08-25-[address] RAJ GALLOWAY Facility:[id number] Start: 06-18-2021 Patient encounter procedure No PCP None [facility] Work Phone: Start: 06-18-2021 Phys/qhp telephone evaluation 11-20 min No PCP None [facility] Work Phone: Start: 04-18-2021 End: 04-18-2021 ambulatory Dilan Sergio Other [employer] Other Start: 04-18-2021 Office outpatient vi sit 25 minutes Dilan Nguyễn [facility] Start: 04-02-2021 End: 04-02-2021 ambulatory Qamar Rowan Other [employer] Other Start: 04-02-2021 Office outpatient vi sit 15 minutes Qamar Rowan [facility] Start: 12-19-2020 Chart Update No PCP None [facility] Work Phone: Start: 11-27-2020 Office outpatient vi sit 15 minutes No PCP None [facility] Work Phone: Start: 09-13-2020 End: 09-13-2020 Office outpatient visit 15 minutes [facility] Dept[facility] of Dermatology Start: 01-26-2020 End: 01-26-2020 Office outpatient visit 15 minutes [facility] Start: 01-26-2020 End: 01-26-2020 Office outpatient visit 25 minutes [facility] Start: 03-06-2018 End: 03-07-2018 Patient encounter procedure [facility] Start: 09-19-2017 End: 09-20-2017 Patient encounter procedure [facility] Procedures Date Procedure Procedure Detail Performing Clinician Start: 09-22-2024 Computerized ophthal srinivas imaging retina Dez Gallagher Jr Start: 09-22-2024 Eylea 1mg Pre-filled Syringe Dez Gallagher Jr Start: 09-22-2024 Intravitreal njx pha rmacologic agt spx Dez Gallagher Jr Start: 08-27-2024 Natriuretic peptide Sabino adrien Mercer MD Work Phone: Start: 06-30-2024 URINE CULTURE - [facility] Ge neric External Data Provider Start: 06-30-2024 Urine culture Rajesh Bradley rry II Work Phone: Start: 06-18-2024 ALL MAGNESIUM Rajesh Mercer MD Work Phone: Start: 06-18-2024 [facility] CMP (CMP) (FOR [facility] USE) Rajesh Mercer MD Work [...] Start: 03-03-2024 Eylea 1mg Pre-filled Syringe Dez aGllagher Jr Start: 03-03-2024 Intravitreal njx pha rmacologic agt spx Dez Gallagher Jr Start: 02-26-2024 Hemoglobin glycosylated a1c Gina Bustillo MD Work Phone: Start: 12-31-2023 Computerized ophthal srinivas imaging retina Dez Gallagher Start: 12-31-2023 Eylea 1mg Pre-filled Syringe Dez Gallagher Start: 12-31-2023 Intravitreal njx pha rmacologic agt spx Dez Gallagher Start: 11-25-2023 Hemoglobin glycosylated a1c Maggi Pena HOP TRAINER-[employer]ROAD CAR CHECKER Work Phone: Start: 10-24-2023 Diabetic retinal eye exam Gina Bustillo MD Work Phone: Start: 08-08-2023 Hemoglobin glycosylated a1c Maggi Pena HOP TRAINER-[employer]RO[employer] CAR CHECKER Work Phone: Start: 08-05-2023 Urine albumin quantitative [...] Author Start: 09-02-2027 Diabetes Screening Diabetes Screening [facility] Start: 2026 RSV Vaccine (1 - 1-dose 75+ series) RSV Vaccine (1 - 1-dose 75+ series) [facility] Start: 04-19-2025 Medicare Annual Wellness (AWV) Medicare Annual Wellness (AWV) [facility] Start: 04-19-2025 Pneumococcal Vaccine: 65+ Years (2 of 2 - PCV) Pneumococcal Vaccine: 65+ Years (2 of 2 - PCV) [facility] Comment on above: Postponed from 04/20/2020 (Patient Refus ed) Start: 04-19-2025 Screening for malignant neoplasm of breast Mammogram [facility] Comment on above: Postponed from 1991 (Patient Refus ed) Start: 04-19-2025 Screening for malignant neoplasm of colon Colorectal Cancer Screening [facility] Comment on above: Postponed from 1951 (Patient Refus ed) Start: 03-03-2025 Glaucoma screening Diabetes: Retinopathy Screening [facility] Start: 02-25-2025 Adult BMI Screening Adult BMI Screening [facility] Start: 02-25-2025 Tobacco Screening Tobacco Screening [facility] Start: 01-11-2025 End: 01-11-2025 Patient encounter procedure 01/11/2025 2:45 PM EDT Office Visit [facility], A Department of [facility] [address] [phone] Gina Bustillo MD [address] [address] [facility], A Department of [facility] Start: 01-03-2025 Influenza vaccination [facility] Start: 12-01-2024 Hemoglobin A1c measurement Diabetes: Hemoglobin A1C [facility] Start: 11-24-2024 Adult BMI Screening Adult BMI Screening [facility] Start: 11-24-2024 Tobacco Screening Tobacco Screening [facility] Start: 10-27-2024 End: 10-27-2024 Patient encounter procedure 10/27/2024 3:15 PM EDT Office Visit [facility] [address] [phone] Kailee Nova DPM [address] [facility] [address] [place] [address] [facility] Start: 10-23-2024 Glaucoma screening Diabetic Ophthalmology Exam [facility] Start: 10-18-2024 End: 10-18-2024 Patient encounter procedure [facility] Start: 10-04-2024 End: 10-04-2024 Patient encounter procedure 10/04/2024 3:00 PM EDT Office Visit Urology [address] [place] [address] [place] [address] [place] [address] CT SCAN FOLLOW UP Urology Comment on above: CT SCAN FOLLOW UP Start: 09-16-2024 End: 09-16-2024 Patient encounter procedure 09/16/2024 1:45 PM EDT Appointment Radiology [facility] CT [address] [place] [address] [place] [address] CT FLANK WO IVCON Radiology Pet CT Comment on above: CT FLANK WO IVCON Start: 09-15-2024 End: 09-15-2024 Patient encounter procedure Urology Comment on above: kidney stones Arrived Start: 09-13-2024 End: 09-13-2024 Patient encounter procedure 09/13/2024 3:00 PM EDT Office Visit Urology [address] [place] [address] [place] [address] [place] [address] kidney stones Urology Comment on above: kidney stones Start: 09-01-2024 End: 09-01-2024 Patient encounter procedure [facility] Comment on above: Arrived Start: 08-26-2024 End: 08-26-2024 Patient encounter procedure [facility] Start: 08-25-2024 End: 08-25-2024 Patient encounter procedure 08/25/2024 9:45 AM EDT Office Visit [facility] [address] [facility] [address] [place] [address] Rajesh Mercer MD [address] [facility] [address] [place] [address] [facility] Start: 08-23-2024 Covid-19 Vaccine ( season) Covid-19 Vaccine () [facility] Start: 08-20-2024 End: 08-20-2026 Echocardiogram 2D complete Echocardiogram 2D complete Echocardiography Routine Shortness of breath Abnormal EKG Preoperative cardiovascular examination Expected: 08/20/2024 (Approximate), Expires: 08/20/2026 [facility] Comment on above: Expected: 08/20/2024 (Approximate), Expi res: 08/20/2026 Start: 08-20-2024 End: 08-20-2025 Natriuretic peptide B [Mass/volume] in Blood B-type natriuretic peptide Lab Routine History of pulmonary embolus (PE) Shortness of breath Abnormal EKG Expected: 08/20/2024 (Approximate), Expires: 08/20/2025 [facility] Work Phone: Comment on above: Expected: 08/20/2024 (Approximate), Expi res: 08/20/2025 Start: 08-20-2024 End: 08-20-2025 Pulmonary function report Pulmonary Function Test Imaging Routine Chronic obstructive pulmonary disease, unspecified COPD type (CMS/HCC) Shortness of breath Preoperative clearance Expected: 08/20/2024, Expires: 08/20/2025 [facility] Comment on above: Expected: 08/20/2024, Expires: Start: 08-17-2024 End: 08-17-2024 Patient encounter procedure 08/17/2024 3:45 PM EDT Office Visit [facility] [address] [place] [address] Kailee Nova DPM [address] [place] [address] [facility] Start: 08-07-2024 Adult BMI Screening Adult BMI Screening [facility] Start: 08-07-2024 Tobacco Screening Tobacco Screening [facility] Start: 08-04-2024 Urine screening for protein Diabetes: Urine Protein Screening [facility] Start: 07-20-2024 End: 07-20-2024 Patient encounter procedure 07/20/2024 3:45 PM EDT Office Visit [facility] [address] [place] [address] Nova, Kailee H, DPM [address] [place] [address] [facility] Start: 07-07-2024 End: 07-07-2024 Patient encounter procedure 07/07/2024 2:15 PM EST Office Visit [facility] [address] [place] [phone] Kailee Nova, DPM [address] [place] [address] [facility] Start: 06-30-2024 Urine culture [facility] Start: 06-30-2024 Bacteria identified in Urine by Culture Urine Culture [facility] Start: 06-22-2024 End: 06-22-2024 Patient encounter procedure 06/22/2024 3:45 PM EST Office Visit [facility] [address] [place] [address] Kailee Nova, DPM [address] [place] [address] [facility] Start: 06-18-2024 End: 06-18-2025 Comprehensive metabolic 2000 panel - Serum or Plasma Comprehensive metabolic panel Lab Routine 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 ([facility]) Expected: 06/18/2024 (Approximate), Expires: 06/18/2025 [facility] Comment on above: Expected: 06/18/2024 (Approximate), Expi res: 06/18/2025 Start: 06-18-2024 End: 06-18-2025 Magnesium [Mass/volume] in Serum or Plasma Magnesium Lab Routine 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 ([facility]) Expected: 06/18/2024 (Approximate), Expires: 06/18/2025 [facility] Comment on above: Expected: 06/18/2024 (Approximate), Expi res: 06/18/2025 Start: 06-18-2024 End: 06-18-2024 Patient encounter procedure 06/18/2024 11:30 AM EST Office Visit [facility] [address] [place] [address] Rajesh Mercer MD [address] [place] [address] Arrived [facility] Comment on above: Arrived Start: 06-10-2024 End: 06-10-2024 Patient encounter procedure 06/10/2024 10:30 AM EST Office Visit [facility] [address] [place] [address] Rajesh Mercer MD [address] [place] [address] [facility] Start: 05-28-2024 Hemoglobin A1c measurement Diabetes: Hemoglobin A1C [facility] Start: 05-24-2024 End: 05-24-2024 Patient encounter procedure 05/24/2024 4:15 PM EST Office Visit [facility] [address] [place] [address] Kailee Nova, DPM [address] [place] [address] [facility] Start: 05-05-2024 Advance Directive Discussion Advance Directive Discussion [facility] Start: 04-22-2024 End: 04-22-2024 Patient encounter procedure [facility] Comment on above: Arrived Start: 04-21-2024 End: 04-21-2024 Patient encounter procedure [facility] Start: 04-19-2024 End: 04-19-2024 Patient encounter procedure [facility] Comment on above: Arrived Start: 03-25-2024 End: 03-25-2024 Patient encounter procedure 03/25/2024 2:30 PM EST Office Visit [facility] [address] [place] [address] Kailee Nova, DPM [address] [place] [address] Arrived [facility] Comment on above: Arrived Start: 03-24-2024 End: 03-24-2024 Patient encounter procedure 03/24/2024 3:00 PM EST Office Visit [facility] [address] [place] [phone] Kailee Nova, DPM [address] [place] [address] [facility] Start: 03-23-2024 End: 03-23-2024 Patient encounter procedure 03/23/2024 4:00 PM EST Office Visit [facility] [address] [facility] [address] [place] [address] Michael Bass, DPM [address] [facility] [address] [place] [address] [facility] Start: 03-10-2024 End: 03-10-2024 Patient encounter procedure 03/10/2024 3:00 PM EST Office Visit [facility] [address] [address] Reyna Preston MD [address] [facility] [address], [facility] [address] [place] [address] [facility] Start: 03-05-2024 Examination of skin Derm Melanoma Skin Check [facility] Start: 02-27-2024 Medicare Annual Wellness (AWV) Medicare Annual Wellness (AWV) [facility] Start: 02-27-2024 Screening for malignant neoplasm of colon Colorectal Cancer Screening [facility] Comment on above: Postponed from 1951 (Patient Refus ed) Start: 02-26-2024 Screening for malignant neoplasm of breast Mammogram [facility] Comment on above: Postponed from 1991 (Patient Refus ed) Start: 02-26-2024 End: 02-26-2024 Patient encounter procedure 02/26/2024 11:45 AM EDT Office Visit [facility] [address] [place] [address] Gina Bustillo MD [address] [place] [address] [facility] Start: 02-25-2024 Hemoglobin A1c measurement Diabetes: Hemoglobin A1C [facility] Start: 02-24-2024 End: 02-24-2024 Patient encounter procedure 02/24/2024 2:30 PM EDT Office Visit [facility] [address] [place] [id number] Kailee Nova DPM [address] [place] [address] [facility] Start: 01-26-2024 End: 01-26-2024 Patient encounter procedure [facility] Comment on above: Arrived Start: 01-24-2024 Glaucoma screening Diabetes: Retinopathy Screening [facility] Start: 01-16-2024 End: 01-15-2025 XR [...] [facility] [address] [place] [id number] Gina Whiteside PA [address] [place] [address] Arrived [facility] Comment on above: Arrived Start: 01-04-2024 Covid-19 Vaccine ( season) Covid-19 Vaccine ( season) [facility] Start: 01-04-2024 Influenza vaccination [facility] Start: 12-21-2023 Adult BMI Screening Adult BMI Screening [facility] Start: 12-21-2023 Tobacco Screening Tobacco Screening [facility] Start: 11-26-2023 Urine screening for protein [facility] Start: 11-25-2023 End: 11-25-2023 Patient encounter procedure 11/25/2023 11:30 AM EDT Office Visit [facility] [address] [place] [address] Maggi Pena, HOP TRAINER-RAILROAD CAR CHECKER [address] [place] [address] [facility] Start: 09-03-2023 End: 09-03-2023 Patient encounter procedure 09/03/2023 2:45 PM EDT Office Visit [facility] [address] [place] [address] Reyna Preston MD [address] [place] [address] [facility] Start: 07-18-2023 Bacteria identified in Urine by Culture Urine Culture [facility] Start: 06-27-2023 COVID-19 Vaccine () COVID-19 Vaccine () [facility] Start: 06-27-2023 COVID-19 Vaccine () COVID-19 Vaccine () [facility] Start: 04-21-2023 COVID-19 Vaccine (4 - Moderna series) COVID-19 Vaccine (4 - Moderna series) [facility] Start: 03-22-2023 Hemoglobin A1c measurement Diabetes: Hemoglobin A1C [facility] Start: 01-03-2023 COVID-19 Vaccine () COVID-19 Vaccine () [facility] Start: 01-03-2023 Influenza vaccination Influenza Vaccine [facility] Start: 07-13-2022 Bacteria identified in Urine by Culture [facility] Start: 05-21-2021 FUV, Provider: Heath Francisco, Status: Pen, Time: 2:00 PM FUV, Provider: Heath Francisco, Status: Pen, Time: 2:00 PM [facility] Work Phone: Start: 04-20-2020 Pneumococcal Vaccine: 50+ (2 of 2 - PCV) Pneumococcal Vaccine: 50+ (2 of 2 - PCV) [facility] Start: 04-20-2020 Pneumococcal Vaccine: 65+ Years (2 - PCV) Pneumococcal Vaccine: 65+ Years (2 - PCV) [facility] Start: 04-20-2020 Pneumococcal Vaccine: 65+ Years (2 of 2 - PCV) Pneumococcal Vaccine: 65+ Years (2 of 2 - PCV) [facility] Start: 2016 Fall Risk Screening Fall Risk Screening [facility] Start: 2016 Screening for osteoporosis Bone Density Screening [facility] Start: 2011 RSV patients and/or patients aged 60+ years (1 - 1-dose 60+ series) RSV patients and/or patients aged 60+ years (1 - 1-dose 60+ series) [facility] Start: 2011 RSV Vaccine (1 - Risk 60-74 years 1-dose series) RSV Vaccine (1 - Risk 60-74 years 1-dose series) [facility] Start: 2001 Administration of varicella zoster vaccine Zoster (Shingles) Vaccine (1 of 2) [facility] Start: 2001 Pneumococcal Vaccine: 50+ (1 of 1 - PCV) Pneumococcal Vaccine: 50+ (1 of 1 - PCV) [facility] Start: 2001 Shingrix Vaccine (1 of 2) Shingrix Vaccine (1 of 2) [facility] Start: 2001 Zoster Vaccines (1 of 2) Zoster Vaccines (1 of 2) [facility] Start: 1996 Diabetes Screening Diabetes Screening [facility] Start: 1996 Lipid panel Lipid Screening [facility] Start: 1996 Screening for malignant neoplasm of colon [facility] Start: 1991 Screening for malignant neoplasm of breast [facility] Start: 1973 DTaP/Tdap/Td Vaccines (1 - Tdap) DTaP/Tdap/Td Vaccines (1 - Tdap) [facility] Start: 1970 DTaP,Tdap and Td Vaccines (1 - Tdap) DTaP,Tdap and Td Vaccines (1 - Tdap) [facility] Start: 1970 Urine microalbumin profile DTaP,Tdap,Td Vaccine (1 - Tdap) [facility] Start: 1970 Urine screening for protein Diabetes: Urine Protein Screening [facility] Start: 1969 Adult BMI Follow Up Plan Adult BMI Follow Up Plan [facility] Start: 1969 Anxiety Screening Anxiety Screening [facility] Start: 1969 Depression Screening Depression Screening [facility] Start: 1969 Diabetic foot examination Diabetic Foot Exam [facility] Start: 1969 Hepatitis C screening Hepatitis C Screening [facility] Start: 1963 Depression Screening Depression Screening [facility] Start: 1961 Diabetic foot examination Diabetes: Foot Exam [facility] Start: 1951 Examination of skin Derm Melanoma Skin Check [facility] Start: 1951 Glaucoma screening Diabetic Ophthalmology Exam [facility] Start: 1951 Lipid panel Lipid Panel [facility] Start: 1951 Medicare Annual Wellness Visit [facility] Start: 1951 Screening for malignant neoplasm of colon [facility] Start: 1951 Screening for osteoporosis Bone Density Scan [facility] Bacteria identified in Urine by Culture [facility] BLOOD CULTURE 1 BLOOD CULTURE 1 Lab Routine 05/31/2024 4:30 PM EST [facility] BLOOD CULTURE 2 BLOOD CULTURE 2 Lab Routine 05/31/2024 4:40 PM EST [facility] CBC W Auto Different ial panel - Blood CBC and differential Lab Routine 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 (CMS/HCC) Ordered: 06/18/2024 [facility] [place] Work Phone: Comment on above: Ordered: 06/18/2024 End: 10-13-2025 CT Abdomen and Pelvis WO contrast CT FLANK WO IVCON Radiology Routine Calculus of kidney 1 Occurrences starting 09/13/2024 until 10/13/2025 [facility] Work Phone: Comment on above: 1 Occurrences starting 09/13/2024 until 10/13/2025 CT Abdomen and Pelvi s WO contrast CT FLANK WO IVCON Radiology Routine Calculus of kidney 09/16/2024 2:16 PM EDT [facility] Work Phone: End: 11-24-2024 Lipid panel Lipid panel Lab Routine Mixed hyperlipidemia 1 Occurrences starting 11/25/2023 until 11/24/2024 [facility] Work Phone: Comment on above: 1 Occurrences starting 11/25/2023 until 11/24/2024 End: 10-19-2025 MR Liver WO and W contrast IV MRI LIVER WO/W IVCON Radiology Routine Liver lesion 1 Occurrences starting 09/19/2024 until 10/19/2025 [facility] Work Phone: Comment on above: 1 Occurrences starting 09/19/2024 until 10/19/2025 Renal function 1999 panel - Serum or Plasma [facility] Renal function 1999 panel - Serum or Plasma [facility] Renal function 1999 panel - Serum or Plasma [facility] Renal function 1999 panel - Serum or Plasma [facility] URINE CULTURE - [facility] URINE CULTU RE - [facility] Lab Routine 06/30/2024 9:50 PM EST [facility] Immunizations Immunization Date Immunization Notes Care Provider [facility] 02-23-2024 Seasonal trivalent influenza vaccine, adjuvanted, preservative free Rajesh Mercer MD Work Phone: [facility] 02-23-2024 influenza virus vaccine, unspecified formulation Kailee Nova DPM Work Phone: [facility] 02-24-2023 Influenza, Seasonal, Quadrivalent, Adjuvanted Reyna Preston MD Work Phone: [facility] Work Phone: 02-24-2023 Pfizer COVID-19 vaccine, Fall 2022, 12 years and older, (30mcg/0.3mL) Reyna Preston MD Work Phone: [facility] Work Phone: 02-24-2023 influenza virus vaccine, unspecified formulation Maggi Pena HOP TRAINER-RAILROAD CAR CHECKER Work Phone: [facility] 02-20-2022 Influenza, Seasonal, Quadrivalent, Adjuvanted Reyna Preston MD Work Phone: [facility] Work Phone: 02-20-2022 influenza virus vaccine, unspecified formulation Maggi Pena HOP TRAINER-RAILRO[employer] CHECKER Work Phone: [facility] 02-13-2022 influenza virus vaccine, unspecified formulation JESSICA NKANSAH-AMANKRA [facility] 02-13-2022 influenza, high dose seasonal, preservative-free Reyna Preston MD Work Phone: [facility] Work Phone: 01-26-2022 Moderna COVID-19 vaccine, bivalent, blue cap/harrell label *Check age/dose* Reyna Preston MD Work Phone: [facility] Work Phone: 03-22-2021 influenza virus vaccine, unspecified formulation JESSICA NKANSAH-AMANKRA [facility] 03-22-2021 influenza, high dose seasonal, preservative-free Reyna Preston MD Work Phone: [facility] Work Phone: 03-06-2021 COVID-19 Moderna Mehraner Harpal Other [facility] 08-25-2020 COVID-19 Shannen Hectorchazer Harpal Other [facility] 07-26-2020 COVID-19 [facility] Other [facility] Comment on above: Result Comment: 2024: [id number] 05-16-2020 influenza virus vaccine, unspecified formulation Gina MCGREGOR Work Phone: [facility] 05-16-2020 influenza, injectabl e, quadrivalent, contains preservative Reyna Preston MD Work Phone: [facility] Work Phone: 04-20-2019 pneumococcal polysaccharide vaccine, 23 valent Reyna Preston MD Work Phone: [facility] Work Phone: 03-29-2019 influenza virus vaccine, unspecified formulation JESSICA NKRAMESH-AMANKRA [facility] 03-29-2019 Influenza, injectabl e, Madin Casmalia Canine Kidney, preservative free, quadrivalent Reyna Preston MD Work Phone: [facility] Work Phone: 02-08-2018 influenza virus vaccine, unspecified formulation JESSICA NKANSAH-AMANKRA [facility] 02-08-2018 Seasonal trivalent influenza vaccine, adjuvanted, preservative free Reyna Preston MD Work Phone: [facility] Work Phone: 02-07-2016 influenza virus vaccine, unspecified formulation JESSICA NKANSAH-AMANKRA [facility] 02-07-2016 influenza, injectabl e, quadrivalent, contains preservative Reyna Preston MD Work Phone: [facility] Work Phone: 01-06-2015 seasonal influenza, intradermal, preservative free Gina MCGREGOR Work Phone: [facility] 02-22-2008 influenza virus vaccine, whole virus Reyna Preston MD Work Phone: [facility] 02-22-2008 influenza, whole JESSICA SHERMAN-AMELIZABETHRA [facility] 1950 pneumococcal conjuga te vaccine, 7 valent Reyna Preston Dept. of Dermatology Payers Date Payer Category Payer Self-pay [id number] 2021 Private Health Insurance [id number] 2019 Commercial Indemty MEDICAL [facility] [id number] 2019 Unknown 2017 Private Health Insurance [id number] 2016 Medicare [id number]. [id number] 1959 Medicare [id number] 1959 Unknown [id number] 1951 Unknown [id number] 2.16.840.1.145730.3.579.2. 173 1951 Unknown [id number] 2.16.840.1.054664.3.579.2. 173 1951 Unknown [id number] 2.16.840.1.303478.3.579.2. 593 1951 Unknown [id number] 2.16.840.1.074332.3.579.2. 356 1951 Unknown [id number] 2.16.840.1.203373.3.579.2. 356 1951 Unknown [id number] 2.16.840.1.693129.3.579.2. 356 1951 Unknown [id number] 2.16.840.1.949802.3.579.2. 356 1951 Unknown [id number] 2.16.840.1.230563.3.579.2. 356 1951 Unknown [id number] 2.16.840.1.219767.3.579.2. 356 1951 Unknown [id number] 2.16.840.1.489326.3.579.2. 1244 1951 Unknown [id number] 2.16.840.1.166887.3.579.2. 1244 1951 Unknown [id number] 2.16.840.1.748975.3.579.2. 1286 1951 Unknown [id number] 2.16.840.1.225842.3.579.2. 1286 1951 Unknown [id number] 2.16.840.1.120905.3.579.2. 1286 1951 Unknown [id number] 2.16.840.1.559154.3.579.2. 727 1951 Unknown [id number] 2.16.840.1.962601.3.579.2. 727 1951 Unknown [id number] 2.16.840.1.123958.3.579.2. 727 1951 Unknown [id number] 2.16.840.1.293239.3.579.2. 1259 1951 Unknown [id number] 2.16.840.1.873275.3.579.2. 125 1951 Unknown [id number] 2.16.840.1.856157.3.579.2. 125 1951 Unknown [id number] 2.16.840.1.905750.3.579.2. 1258 1951 Unknown [id number] 2.16.840.1.577329.3.579.2. 125 1951 Unknown [id number] 2.16.840.1.202187.3.579.2. 1258 1951 Unknown [id number] 2.16.840.1.237943.3.579.2. 125 1951 Unknown [id number] 2.16.840.1.471369.3.579.2. 1258 1951 Unknown [id number] 2.16.840.1.009341.3.579.2. 1259 1951 Unknown [id number] 2.16.840.1.284144.3.579.2. 125 1951 Unknown [id number] 2.16.840.1.241748.3.579.2. 125 1951 Unknown [id number] 2.16.840.1.014163.3.579.2. 1258 1951 Unknown [id number] 2.16.840.1.504980.3.579.2. 125 1951 Unknown [id number] 2.16.840.1.868353.3.579.2. 1347 1951 Unknown [id number] 2.16.840.1.322348.3.579.2. 1347 1951 Unknown [id number] 2.16.840.1.729250.3.579.2. 1347 1951 Unknown [id number] 2.16.840.1.269670.3.579.2. 1347 Unknown [id number] 2.16.840.1.052272.3.579.2. 531 Unknown [id number] 2.16.840.1.277310.3.579.2. 531 Unknown [id number] 2.16.840.1.728797.3.579.2. 531 Unknown [id number] 2.16.840.1.901568.3.579.2. 531 Social History Date Type Detail Facility Start: 09-13-2020 Dept. of ermatology Start: 1950 End: 1950 Sex Assigned At Female [facility] Start: 06-14-2020 End: 01-26-2024 Sex Assigned At [facility] [employer] Other Start: 1950 Sex Assigned At Not on file [facility] Work Phone: Start: 02-21-2023 End: 09-03-2023 Exposure to SARS-CoV-2 (event) Not sure [facility] Start: 03-11-2018 End: 07-04-2022 Tobacco smoking status NHIS Never smoked tobacco (finding) [facility] Start: 07-04-2022 End: 09-03-2023 Tobacco use and exposure Smokeless tobacco non-user [facility] Work Phone: Start: 02-24-2024 End: 10-04-2024 Alcoholic beverage intake Lifetime non-drinker (finding) [facility] Start: 06-14-2020 End: 01-26-2024 History of Social function [facility] Start: 02-08-2024 Alcohol Comment caffeine intak e: more than 4 cups per day [facility] Start: 08-08-2023 End: 02-26-2024 Alcoholic beverage intake [facility] Adolescent depressio n screening assessment 0 [facility] Start: 12-06-2014 End: 09-28-2024 Sex Female (finding) [facility] Sexual O[facility] Medical Equipment Procedure Code Equipment Code Equipment Origin al Text Equipment Identifier Dates [id number], [id number], [id number], [id number], [id number] Start: 05-17-2022 End: 03-03-2024 Goals Date Patient Goal Desired Activity /State Functional Status Date Assessment Result Facility 08-18-2024 Functional Status No [facility] Clinical Notes 04-02-2021 to 10-04-2024 Chanell Tatum [...] 20 mg by mouth once daily. Vit A,C,H-Wzlh-Cahoxy (PRESERVISION AREDS) 4,296 mcg-226 mg-90 mg cap [...] her options and will message me on Inc[employer] on her final decision -Consider options -Message [...] Past Histories independently gathered by the clinical applications support specialist and the remaining scribed note accurately describes my personal service to the patient. This note was partially generated using [employer] voice recognition system. Chanell Tatum MD documented in this encounter [facility] 10-04-2024 Note HNO ID: [id number] Author: CHANELL TATUM MD Service: ? Author [...] 20 mg by mouth once daily. Vit A,C,P-Tbco-Wyvvqf (PRESERVISION AREDS) 4,296 mcg-226 mg-90 mg cap [...] Understanding Kidney St (more content not included)... [facility] 09-28-2024 Evaluation note Diagnosis Onset Date [...] D deficiency acute September 28, 2024 3:54pm [facility] Work Phone: 1(640) 228-548805-18-2025 Telephone encounter Note* Telephone Encounter - Chanell [...] as scheduled. Thank you Chanell Tatum MD [facility]05-18-2025 Miscellaneous Notes* Telephone Encounter - Chanell Tatum [...] you Chanell Tatum MD documented [facility] History of Present illness Narrative* Loida Talley, [...] PATIENT PRESENTS WITH AN IMPLANTABLE OR ATTACHED ARTS AND CRAFTS INSTRUCTOR: No RADIOLOGY DEPARTMENT: CT; Exam(s) Completed: Flank Study PERIPHERAL IV DATA: Not applicable SIGNED BY: RT Sina(Adrian) September 16, 2024 1:26 PM documented in this encounterUniversity [facility]2025 NoteHNO ID: [id number] Author: LOIDA TALLEY RT(R) Service: ? Author [...] PATIENT PRESENTS WITH AN IMPLANTABLE OR ATTACHED ARTS AND CRAFTS INSTRUCTOR: No RADIOLOGY DEPARTMENT: CT; Exam(s) Completed: Flank Study PERIPHERAL IV DATA: Not applicable SIGNED BY: RT Sina(R) September 16, 2024 1:26 [facility]05-14-2025 History of Present illness Narrative* Kailee Nova [...] the overgrowth ofthe toenails. documented in this encounterSaint John's [id number] Instructions* Patient Instructions* Chanell Tatum MD - 09/13/2024 3:[address] scan stone protocol Followed by an office visit Patient to call or present to the ER if : Fever more than 101.5F Flank or abdominal pain Decreased urine output Unable to void Not feeling well Blood in urine documented in this encounterUniversity [facility] History of Present illness Narrative* Chanell Tatum [...] deferred to discuss options, namely URS. On shelter eliquis. Today the patient is accompanied by [...] to update imaging, will do this at [facility]. Discussed generalized dietary modifications for stone [...] Past Histories independently gathered by the clinical applications support specialist and the remaining scribed note accurately describes my personal service to the patient. This note was partially generated using [employer] voice recognition system. Chanell Tatum MD documented in this encounterUniversity [facility]als [facility]05-[facility]-2025 NoteHNO ID: [id number] Author: CHANELL TATUM MD Service: ? Author [...] deferred to discuss options, namely URS. 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 Today the patient is accompanied by [...] to update imaging, will do this at [facility]. Discussed generalized dietary modifications for stone [...] Past Histories independently gathered by the clinical applications support specialist and the remaining scribed note accurately describes my personal service to the patient. This note was partially generated using [employer] voice recognition system. Chanell Tatum, [facility]05-06-2025 Telephone encounter Note* Telephone Encounter - Eva Bray RN - 09/07/2024 2:19 PM EDT Received fax from [facility] for consult for kidney stones to Dr. Tatum. Pt already has appointment scheduled with Dr. Tatum for next week. Will have all patient information we received scanned into the chart. [facility]05-06-2025 Miscellaneous Notes* Telephone Encounter - Eva Bray RN - 09/07/2024 2:19 PM EDT Received fax from [facility] for consult for kidney stones to Dr. Tatum. Pt already has appointment scheduled with Dr. Tatum for next week. Will have all patient information we received scanned into the chart. documented in this encounterUniversity Hospitals St. [facility]-2025 NotePatient Education Urology Kidney Stones Kidney stones [...] these instructions at home: Medicines ??? Take gutb-uqr-vjjhded and prescription medicines only as told by [...] provider. Document Revised: 12/13/2022 Document Reviewed: 12/13/2022 KeyView Patient Education ? 2023 [employer] 09-01-2024 History of Present illness Narrative* Rajesh Mercer MD - 09/01/2024 11:00 AM EDT Images from the original note were not included. HPI surgical clearance Additional comments: Pt sched 09/02/24 at [facility] for cystoscopy, left ESWL Results Additional comments: PFT and echo and lab Med Refill Additional comments: Albuterol MDI--tsering chavez Last edited by Miriam Nina LPN on 09/01/2024 11:36 AM. Subjective Patient ID: Chloe Pickens is a 74 y.o. female who presents for surgical clearance (Pt sched 09/02/24 at [facility] for cystoscopy, left ESWL), Results (PFT and echo and lab), and Med Refill (Albuterol MDI--tsering chavez). Pt here for surg clearance and to be advised on holding blood thinner prior to surgery On abx prior to procedure as directed PAT completed and additional testing ordered last visit has been completed She needs to bring albuterol inhaler with her to [facility] so she will need a refill on [...] in the morning. Blood Glucose Monitoring Suppl (Station X Verio Flex System) w/Device kit USE TO [...] 1 CAPSULE EVERY DAY 90 capsule 3 Station X Verio test strip Use one strip to [...] No follow-ups on file. documented in this encounterSaint John's [id number] History of Present illness Narrative* Rajesh Mercer MD - 08/20/2024 11:30 AM EDT Images from the original note were not included. HPI SURGICAL CLEARANCE Additional comments: Pt sched 09/02/24 at [facility] with Dr Nye for cystoscopy and left [...] for SURGICAL CLEARANCE (Pt sched 09/02/24 at [facility] with Dr Nye for cystoscopy and left [...] take until procedure PAT completed and her tsa screener has also faxed recent lab work for [...] in the morning. Blood Glucose Monitoring Suppl (Station X Verio Flex System) w/Device kit USE TO [...] failure, stage 3 (moderate) (CMS/HCC) Asthma Diabetes ([facility]/HCC) HLD (hyperlipidemia) (CMS/HCC) HTN (hypertension) (CMS/[facility]) Past Surgical History: Procedure Laterality Date CHOLECYSTECTOMY [...] Greater than 45 minutes was spent in kfew-oh-ljzi consultation and coordination of care. Follow up in about 2 weeks (around 09/03/2024) for Test/Lab Review, Preoperative clearance. documented in this encounterSaint John's [id number] NotePatient Education Nephrology ESWL for Kidney Stones, [...] these instructions at home: Medicines ??? Take hluu-gpn-wkunhyy and prescription medicines only as told by [...] to prevent or treat constipation: ? Take rxnw-lxf-wfemnkc or prescription medicines. ? Eat foods that [...] care provider. Document Revised: (more content not included)...[facility]02-14-2025 History of Present illness Narrative* Rajesh Mercer [...] Row Patient Outreach from 06/07/[address] [facility] with [facility] Information ED, Hospital or Residential Facility Discharge? Hospital Patient has been contacted within two business days of discharge No Have two attempts been made to contact the patient within two business days of being discharged? Yes Diagnosis acute UTI, systemic inflammatory response system Discharge Date 06/02/24 Discharged To: Home Setting Discharge Hospital [facility] Engagement Call Start Time 1551 [...] in the morning. Blood Glucose Monitoring Suppl (Station X Verio Flex System) w/Device kit USE TO [...] 1 CAPSULE EVERY DAY 90 capsule 3 Station X Verio test strip Use one strip to [...] 0.55 - 1.02 mg/dL Final [facility] EGFR-AF SWAZI 06/18/2024 46 (L) >=60 mL/min/1.73m 2 Final [facility] EGFR-NON AF SWAZI 06/18/2024 38 (L) >=60 mL/min/1.73m 2 Final [...] O:SCHATU Isolated ANAID1 05/31/2024 [facility] Final ANAID1 05/31/[address] [place] [address] [id number] Final ANAID1 05/31/2024 Jute Bag Sewer: Nemesio Shay PhD, Phone: [phone] Final Assessment/Plan Diagnoses and all orders for this visit: 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 documented in this encounterSaint John's [id number] History of Present illness Narrative* Kailee Nova, [...] the future. RTC: prn. documented in this encounterSaint John's [id number] History of Present illness Narrative* Rajesh Mercer [...] in the morning. Blood Glucose Monitoring Suppl ([employer]io Flex System) w/Device kit USE TO CHECK [...] 1 CAPSULE EVERY DAY 90 capsule 3 Station X VeriMedX test strip Use one strip to check [...] Do you have a medical power of trade mark attorney?: No Objective : BP 122/70 Pulse [...] on April 19, 2024 documented in this encounterSaint John's [id number] Evaluation note* Diagnosis Onset Date Resolution Status [...] D deficiency acute Dece mber 2023 3:54pm [facility] Work Phone: 1(536) 859-628412-10-2024 Miscellaneous Notes* Telephone Encounter - Alison Bishop - 04/13/2024 9:44 AM EST LM that she is very concerned on the jardiance. In last 24 hours she has developed a sore on her labia. She uses [facility] in [place]. Asking if anything can be called in. [...] AM EST Patient informed. documented in this encounterRegency Hospital [facility] WestTerraX Min[facility] [id number] Telephone encounter Note* Telephone Encounter - Alison Bishop - 04/13/2024 9:44 AM EST LM that she is very concerned on the jardiance. In last 24 hours she has developed a sore on her labia. She uses [facility] in [place]. Asking if anything can be called in. Also should she stop taking the medication for now? [facility] HospitalSpinMedia GroupDedjym15-93-1186 Telephone encounter Note* Telephone Encounter - Gina [...] 24-48 hours, recommend she see her PCP. [employer]12-10-2024 Telephone encounter Note* Telephone Encounter - lAison Bishop - 04/13/2024 9:44 AM EST Patient informed. [facility] [employer]11-21-2024 History of Present illness Narrative* Kailee Nova [...] the future. RTC: prn. documented in this encounterSaint John's [id number] History of Present illness Narrative* Gina Bustillo [...] daily. CGM reviewed, some lows in the pre press proofer and miday. Past Medical History: Diagnosis Date Diabetes mellitus ([facility]) Kidney disease Tremor Past Surgical History: Procedure [...] , Rfl: blood-glucose meter (ONETOUCH VERIO METER) [facility], Use daily 4 times a [...] mouth., Disp: , Rfl: blood sugar diagnostic ([employer] VERIO TEST STRIPS) strip, Use one strip [...] coma, without long-term current use of insulin ([facility]) - POCT Hemoglobin A1c - blood sugar [...] to clinic: 3 months documented in this encounterPro[facility]10-24-[facility]24 Instructions* Patient Instructions* Gina Bustillo MD - 02/26/2024 11:45 AM EDT Reduce Tresiba to 60 units twice/day Call the office if still having low blood sugars documented in this encounterProMedica Defiance Regional Hospital10-22-2024 History of Present illness Narrative* Kailee [...] the future. RTC: prn. documented in this encounterNOMissouri Delta Medical CenterEwrtvchfxw44-72-3262 Telephone encounter Note* Telephone Encounter - BALBIR Cunningham - 01/29/2024 3:30 PM EDT OARRS reviewed, Rx sent into patient's pharmacy. It was an initial script after a big gap of time. Had to start with 5 day supply. [facility]'s HospitalNzqwmzxffl20-70-2866 Miscellaneous Notes* Telephone Encounter - BALBIR Cunningham [...] down to 5 pills. She's using [facility] [place] documented in this encounterSaint John's HospitalTxylmqiyls44-33-8941 Telephone encounter Note* Telephone Encounter - Vonda Mota - 01/29/2024 1:17 PM EDT Pt stated she needs a refill of tramodol (I'm not seeing it on her med list.) The last prescriptionwas only for 20. It was originally 60. She's down to 5 pills. She's using [facility] [place] Saint John's HospitalPyahttzinj91-76-5066 History of Present illness Narrative* Kailee Nova [...] the future. RTC: prn. documented in this encounterSaint John's HospitalTnbgspxevu97-13-7006 History of Present illness Narrative* BALBIR Cunningham [...] in the morning. Blood Glucose Monitoring Suppl (Station X Verio Flex System) w/Device kit USE TO [...] time. She will have them done at [facility]. Will notifypt of the results once received. [...] unspecified (CMS/HCC) The patient is seeing a phlebotomist medical lab assistant for this condition, treatment is deferred to that specialist. Correspondence from that specialist and any available testing were reviewed during today's visit. Major depressive disorder, recurrent, moderate (HCC) (CMS/HCC) This is a chronic medical condition that is stable since last assessment. No changes in treatment are suggested at this time. Vitreous hemorrhage, unspecified eye (CMS/HCC) The patient is seeing a phlebotomist medical lab assistant for this condition, treatment is deferred to that specialist. Correspondence from that specialist and any available testing were reviewed during today's visit. Follow up in about 6 weeks (around 02/27/2024) for Medicare Wellness Visit. documented in this encounterSaint John's HospitalQlusabdjvh97-13-1461 History of Present illness Narrative* Maggi Pena, STELLA-RAILROAD CAR CHECKER - 11/25/2023 11:30 AM EDT REASON FOR [...] Past Medical History: Diagnosis Date Diabetes mellitus ([facility]) Kidney disease Tremor Past Surgical History: Procedure [...] Rfl: 3 blood-glucose meter (ONETOUCH VERIO METER) [facility], Use daily 4 times a [...] hyperglycemia, with long-term current use of insulin ([facility]) - POCT Hemoglobin A1c Hemoglobin A1c is [...] HOMER Salcedo 11/25/23 1240 documented in this encounterProMedica Defiance Regional Hospital06-24-2024 Miscellaneous Notes* Telephone Encounter - Alison [...] AM EDT Patient informed. documented in this encounterProMedica Defiance Regional Hospital06-24-2024 Telephone encounter Note* Telephone Encounter - [...] d/t complications with blood sugars. Please advise. [facility]06-24-2024 Telephone encounter Note* Telephone Encounter - HOMER Salcedo - 10/27/2023 9:56 AM EDT Please let patient know that I sent a prescription for Ozempic 1 mg weekly for her to switch to. [facility]06-24-2024 Telephone encounter Note* Telephone Encounter - Alison Bishop - 10/27/2023 9:56 AM EDT Patient informed. [facility]05-01-2024 History of Present illness Narrative* Reyna [...] and fibrosis of skin documented in this [facility] Work Phone: 1(596) 169-646504-05-2024 History of Present illness Narrative* Maggi Cárdenas Fabian, HOP TRAINER-RAILROAD CAR CHECKER - 08/08/2023 1:15 PM EDT REASON FOR [...] Past Medical History: Diagnosis Date Diabetes mellitus ([facility]) Kidney disease Tremor Past Surgical History: Procedure [...] route., Disp: , Rfl: blood sugar diagnostic ([employer]CH VERIO TEST STRIPS) strip, Use one strip to check blood sugar four times a day DX:e11.69, Disp: 400 strip, Rfl: 3 blood-glucose meter (ONETOUCH VERIO METER) [facility], Use daily 4 times a [...] hyperglycemia, with long-term current use of insulin ([facility]) - POCT Hemoglobin A1c Blood sugars drop [...] HOMER Salcedo 08/08/23 1411 [facility] this [facility] Miscellaneous Notes* Telephone Encounter - Sarah Rangel - 2023 4:40 PM EST OK to sign and send. Added note to have patient schedule appt documented in this [facility] Telephone encounter Note* Telephone Encounter - Sarah Rangel - 2023 4:40 PM EST OK to sign and send. Added note to have patient schedule appt [facility] [employer]10-31-2023 Evaluation note* Encounter Date Diagnosis Assessment Notes Treatment Notes Treatment Clinical Notes Feb, Dyspnea (ICD-10 - R06.00) Feb, Lymphadenopathy (ICD-10 - R59.1) Feb, Rhinitis (ICD-10 - J31.0) [employer] Other 10-30-2023 History of Present illness Narrative* [...] of Reyna Preston MD. documented in this [facility] Work Phone: 1([phone]) 244-749908-15-2023 Evaluation note* Encounter Date Diagnosis Assessment Notes Treatment Notes Treatment Clinical Notes Dec, Hypertensive chronic kidney disease with stage 1 through stage 4 chronic kidney disease, or unspecified chronic kidney disease (ICD-10 - I12.9) [employer] Other 07-26-2023 Evaluation note* Encounter Date Diagnosis [...] advised her to continue to work with copywriting intern for DM management. She has no evidence of proteinuria. Continue current dose of losartan for renal protection. Continue Jardiance and Kerendia Nov, Vitamin D deficiency (ICD-10 - E55.9) Her calcium and vitamin D are within the goal. Continue oral vitamin D. [employer] Other 05-02-2023 Evaluation note* Encounter Date Diagnosis Assessment Notes Treatment Notes Treatment Clinical Notes September, Dyspnea (ICD-10 - R06.00) September, Lymphadenopathy (ICD-10 - R59.1) September, Rhinitis (ICD-10 - J31.0) [employer] Other 04-27-2023 Evaluation note* Encounter Date Diagnosis [...] advised her to continue to work with copywriting intern for DM management. She has no evidence of proteinuria. Continue current dose of losartan for renal protection. Continue Jardiance and Kerendia Aug, Vitamin D deficiency (ICD-10 - E55.9) Her calcium and vitamin D are within the goal. Continue oral vitamin D. [employer] Other 03-13-2023 Evaluation note* Encounter Date Diagnosis [...] advised her to continue to work with copywriting intern for DM management. She has no evidence of proteinuria. Continue current dose of losartan for renal protection. Continue Jardiance and Kerendia Jul, Vitamin D deficiency (ICD-10 - E55.9) Her calcium and vitamin D are within the goal. Continue oral vitamin D. [employer] Other 01-04-2023 Evaluation note* Encounter Date Diagnosis Assessment Notes Treatment Notes Treatment Clinical Notes May, Type 2 diabetes mellitus with diabetic chronic kidney disease (ICD-10 - E11.22) [employer] Other 10-31-2022 Evaluation note* Encounter Date Diagnosis Assessment Notes Treatment Notes Treatment Clinical Notes Feb, Dyspnea (ICD-10 - R06.00) Feb, Lymphadenopathy (ICD-10 - R59.1) [employer] Other 10-20-2022 Evaluation note* Encounter Date Diagnosis [...] advised her to continue to work with copywriting intern for DM management. She has no evidence of proteinuria. Continue current dose of losartan for renal protection. She will be benefit with SGLT2 inhibitors including Farxiga and Jardiance. Advised to discuss with endocrine Feb, Vitamin D deficiency (ICD-10 - E55.9) Her calcium and vitamin D are within the goal. Continue oral vitamin D. [employer] Other 06-21-2022 Evaluation note* Encounter Date Diagnosis [...] advised her to continue to work with copywriting intern for DM management. She has no evidence of proteinuria. Continue current dose of losartan for renal protection Oct, Vitamin D deficiency (ICD-10 - E55.9) Her calcium and vitamin D are within the goal. Continue oral vitamin D. [employer] Other 05-31-2022 Evaluation note* Encounter Date Diagnosis Assessment Notes Treatment Notes Treatment Clinical Notes September, Dyspnea (ICD-10 - R06.00) September, Lymphadenopathy (ICD-10 - R59.1) [employer] Other 12-15-2021 Evaluation note* Encounter Date Diagnosis [...] advised her to continue to work with copywriting intern for DM management. She has no evidence of proteinuria. Continue current dose of losartan for renal protection Apr, Vitamin D deficiency (ICD-10 - E55.9) Her calcium and vitamin D are within the goal. Continue oral vitamin D. [employer] Other 11-29-2021 Evaluation note* Encounter Date Diagnosis Assessment Notes Treatment Notes Treatment Clinical Notes Mar, Dyspnea (ICD-10 - R06.00) [employer] Other Evaluation + Plan note Future Appointments Appointment Date:09/02/2024 11:00:00 AM Scheduled Provider: Location:[facility] Appointment Type:Surgery FT [facility] Evaluation + Plan note Future Appointments Appointment Date:09/06/2024 11:30:00 AM Scheduled Provider:JESSICA BRISCOE MD Location:[facility] Appointment Type:URO Office Visit [facility] Evaluawniu noteN/ADept. of Dermatology Evaluation noteNo InformationNort [email or web address] Other evaluation noteNo assessment information available [facility] Work Phone: Evaluation note* Diagnosis Furuncle- Primary Carbuncle and furuncle of unspecified site Melanocytic nevus, unspecified location Lentigo Other dyschromia Hemangioma of other sites Seborrheic keratosis Scar conditions and fibrosis of skin Scar condition and fibrosis of skin Personal history of malignant melanoma of skin documented in this encounter [facility] Work Phone: Evaluation note* Diagnosis Onset Date Resolution Status CKD (chronic kidney disease) stage 4, GFR 15-29 ml/min acute Hyperlipidemia acute [id number] acute Nephrolithiasis, uric acid a cute Type 2 diabetes mellitus wit h diabetic chronic kidney disease acute Vitamin D deficiency acute [facility] Work Phone: Evaluation note* Diagnosis Fissure in [...] fibrosis of skin documented in this encounter [facility] Work Phone: Evaluation note* Diagnosis Onset Date Resolution Status Chronic kidney disease, stage 3 unspecified acute CKD (chronic kidney disease) stage 4, GFR 15-29 ml/min acute Hyperlipidemia acute [id number] acute Nephrolithiasis, uric acid a cute Type 2 diabetes mellitus wit h diabetic chronic kidney disease [facility] Work Phone: Evaluation note* Diagnosis Ingrown toenail- Primary Ingrowing nail Left foot pain Pain in soft tissues of limb documented [facility] encounter [facility]* Diagnosis Primary osteoarthritis of both knees- Primary documented in this encounter [facility]* Diagnosis Ingrown toenail- Primary Ingrowing nail Left foot pain Pain in soft tissues of limb Onychomycosis Dermatophytosis of nail Type 2 diabetes mellitus without complication, without long-term current use of insulin ([facility]) documented in this encounter [facility]* Diagnosis Acute pain of right knee- Primary Primary osteoarthritis of both knees Sore on scalp Diarrhea, unspecified type Morbid (severe) obesity due to excess calories (CMS/HCC) Body mass index (BMI) 50.0-59.9, adult (CMS/HCC) Chronic obstructive pulmonary disease, unspecified (CMS/HCC) Major depressive disorder, recurrent, moderate (CMS/HCC) Major depressive disorder, recurrent episode, moderate Vitreous hemorrhage, unspecified eye ([facility]) documented in this encounter [facility]* Diagnosis Routine general medical [...] hyperglycemia, with long-term current use of insulin ([facility]) documented [facility] encounter [facility]* Diagnosis 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 ([facility])- Primary Chronic obstructive pulmonary disease, unspecified COPD type ([facility]) Primary osteoarthritis of both knees Presence of both artificial knee joints Vitreous hemorrhage, unspecified eye ([facility]) Malignant melanoma of left upper limb, including shoulder ([facility]) Pulmonary hypertension, unspecified ([facility]) Morbid (severe) obesity due to excess calories ([facility]) Body mass index (BMI) 45.0-49.9, adult ([facility]) Type 2 diabetes mellitus with diabetic chronic kidney disease ([facility]) Chronic kidney disease, stage 3b (HCC) ([facility] [place]) Major depressive disorder, recurrent, moderate ([facility] [place]) Major depressive disorder, recurrent episode, moderate documented in this encounter [facility] HealthcareEvaluation note* Diagnosis Type 2 diabetes mellitus with hyperglycemia, with long-term current use of insulin ([facility])- Primary documented in this encounter [facility]* Diagnosis Type 2 diabetes mellitus with hyperglycemia, with long-term current use of insulin ([facility]) documented in this encounter [facility]* Diagnosis Type 2 diabetes mellitus with hypoglycemia without coma, without long-term current use of insulin ([facility])- Primary documented in this encounter [facility]* Diagnosis Type 2 diabetes mellitus with hyperglycemia, with long-term current use of insulin ([facility])- Primary Primary hypertension Unspecified essential hypertension Mixed hyperlipidemia documented in this encounter [facility]* Diagnosis Type 2 diabetes mellitus with hyperglycemia, with long-term current use of insulin ([facility]) documented in this encounter [facility]* Diagnosis Type 2 diabetes mellitus with hyperglycemia, with long-term current use of insulin ([facility])- Primary Primary hypertension Unspecified essential hypertension documented in this encounter [facility]* Diagnosis Type 2 diabetes mellitus with hypoglycemia without coma, without long-term current use of insulin ([facility])- Primary Primary hypertension Unspecified essential hypertension Mixed hyperlipidemia documented in this encounter [facility]* Diagnosis Type 2 diabetes mellitus with hypoglycemia without coma, without long-term current use of insulin ([facility]) [facility]* Diagnosis Tinea cruris- Primary Dermatophytosis of groin and perianal area documented in this encounter [facility]* Diagnosis Preoperative clearance- Primary Unspecified pre-operative [...] use of insulin documented in this encounter [facility]* Diagnosis Preoperative clearance- Primary Unspecified pre-operative examination Preoperative cardiovascular examination Pre-operative cardiovascular examination Chronic obstructive pulmonary disease, unspecified COPD type (CMS/HCC) Abnormal EKG Nonspecific abnormal electrocardiogram (ECG) (EKG) documented in this encounter [facility]* Diagnosis Calculus of kidney- Primary Calculus of bladder Other calculus in bladder documented in this [facility]* Diagnosis Onychomycosis- Primary Dermatophytosis of nail Pain in both feet Type 2 diabetes mellitus without complication, without long-term current use of insulin documented [facility] encounter [facility]* Diagnosis Calculus of kidney documented in this encounter [facility]* Diagnosis Liver lesion- Primary Other specified disorders of liver documented in this [facility]* Diagnosis Calculus of kidney- Primary documented in this encounter [facility] general Narrative - Reported* Type Description [...] BLOOD CLOTS IN BOTH LUNG S 2016 [employer] Other Hisqbwf general Narrative - Reported* Type Description Date [...] BLOOD CLOTS IN BOTH LUNG S 2016 [employer] Other Hiss[employer] general Narrative - Reported* Type Description Date [...] BLOOD CLOTS IN BOTH LUNG S 2016 [employer] Other Hishetd general Narrative - Reported* Type Description Date [...] BLOOD CLOTS IN BOTH LUNG S 2016 [employer] Other History of Present illness Narrative* Ms. [...] any other skin lesions. She saw her Windows Phone Developer Dr. Kelley and underwent a biopsy of [...] than it was at my last visit. [facility] Work Phone: History of Present illness Narrative* [...] any other skin lesions. She saw her Windows Phone Developer Dr. Kelley and underwent a biopsy of [...] than it was at my last visit. [facility] Work Phone: History of Present illness [...] any other skin lesions. She saw her Windows Phone Developer Dr. Kelley and underwent a biopsy of [...] than it was at my last visit. [facility] Work Phone: History of Present illness Narrative* [...] any other skin lesions. She saw her Windows Phone Developer Dr. Kelley and underwent a biopsy of [...] biopsies. She is being seen by a Trade Marker for various issues including Left arm swelling. [...] to the telephone nature of the visit [facility] Work Phone: Hospital course Narrative No data available for this section [facility] Hospital Discharge instructions No data available for this section [facility] InstructionsNot on filedocumented in this encounter [facility]Not on filedocumented in this encounter [facility] SystemInstructionsNot on filedocumented in this encounter [facility] SystemInstructionsNot on filedocumented in this encounter [facility] SystemInstructionsNot on filedocumented in this encounter [facility] SystemInstructionsNot on filedocumented in this encounter [facility] SystemProgress note No data available for this section [facility] Reason for referral (narrative)* Name Reason for [...] disease) stage 4, GFR 15-29 ml/min Hyperlipidemia [id number] Nephrolithiasis, uric acid Type 2 diabetes mellitus with diabetic chronic kidney disease Vitamin D deficiency Chief Complaint I12.9 N18.30 R60.0 N 20.0 E11.22 E55.9 RENAL 6 month follow up n18.4 e11.22 n20.0i 112.9 Reason for Visit CKD (chronic kidney disease) stage 4, GFR 15-29 ml/min Hyperlipidemia [id number] Nephrolithiasis, uric acid Type 2 diabetes mellitus with diabetic chronic kidney disease Vitamin D deficiency Chief Complaint E11.22 N20.0 E78.5 N 18.4 E55.9 RENAL 4 MONTH F/U Reason for Visit Chronic kidney disea se, stage 3 unspecified CKD (chronic kidney disease) stage 4, GFR 15-29 ml/min Hyperlipidemia [id number] Nephrolithiasis, uric acid Type 2 diabetes mellitus [...] Diagnoses Reyna Bernal MD [address] [facility] B, [address] [address] Referral ID Status Reason Start Date Expiration Date V isits Requested Visits Authorized [id number] Pending Review 1 1 Additional Source Comments INFORMATION SOURCE (unrecogn ized section and content) DATE CREATED AUTHOR 04/12/2018 [facility] DATE CREATED AUTHOR AUTHOR'S ORGANIZ ATION 10/14/2018 [facility] DATE CREATED AUTHOR AUTHOR'S ORGANIZ ATION 11/21/2019 [facility] DATE CREATED AUTHOR AUTHOR'S ORGANIZ ATION 06/21/2021 [facility] DATE CREATED AUTHOR AUTHOR'S ORGANIZ ATION 10/08/2021 [facility] DATE CREATED AUTHOR AUTHOR'S ORGANIZ ATION 09/15/2022 [facility] DATE CREATED AUTHOR AUTHOR'S ORGANIZ ATION 09/05/2023 [facility] DATE CREATED AUTHOR AUTHOR'S ORGANIZ ATION 02/28/2024 [facility] DATE CREATED AUTHOR AUTHOR'S ORGANIZ ATION 08/21/2024 [facility] DATE CREATED AUTHOR AUTHOR'S ORGANIZ ATION 09/06/2024 [facility] DATE CREATED AUTHOR AUTHOR'S ORGANIZ ATION 09/07/2024 [facility] DATE CREATED AUTHOR AUTHOR'S ORGANIZ ATION 09/17/2024 [facility] DATE CREATED AUTHOR AUTHOR'S ORGANIZ ATION 10/01/2024 [facility] DATE CREATED AUTHOR AUTHOR'S ORGANIZ ATION 10/05/2024 [facility] REASON FOR VISIT (unrecogniz ed section [...] Comments SURGICAL CLEARANCE Pt sched 09/02/24 at [facility] with Dr Nye for cystoscopy and left [...] Comments surgical clearance Pt sched 09/02/24 at [facility] for cystoscopy, left ESWL Results PFT and echo and lab Med Refill Albuterol MDI--parker rt t[place] Reason Comments New Patient Hospital inpatient s alayna and found the stones. Was at [facility] [address] Specialty Diagnoses / Procedures Referred By Aleshia t Referred To Contact CT IMAGING Diagnoses Calculus of kidney Procedures CT FLANK WO IVCON CT ABD & PEL[place] [address] [place] [address] Phone: tel: fax: [place] [address] Referral ID Status Reason Start Date Expiration Date V isits Requested Visits Authorized [id number] Closed Auto-Generate d Referral 09/13/2024 10/13/2025 1 [...] Active Dilan Nguyễn MD Attending Provider Active Leather Sprayer Relationship Specialty Start Date End Date Rajesh Mercer MD [address] [place] [address] PCP - General 01/03/23 Team Status: Inactive [...] July 21, 2023 End: July 21, 2023 Leather Sprayer Relationship Specialty Start Date End Date Rajesh Mercer MD [address] [place] [address] PCP - General 01/03/23 Team Status: Inactive [...] November 13, 2023 End: November 13, 2023 Leather Sprayer Relationship Specialty Start Date End Date Rajesh Mercer MD [address] [place] [address] PCP - General Internal Medicine 10/18/22 Rajesh Mercer MD [address] [place] [address] PCP - ACO Reach 07/04/23 Leather Sprayer Relationship Specialty Start Date End Date Rajesh Mercer MD [address] [place] [address] PCP - General Internal Medicine 10/18/22 Rajesh Mercer MD [address] [place] [address] PCP - ACO Reach 07/04/23 Leather Sprayer Relationship Specialty Start Date End Date Rajesh Mercer MD [address] [place] [address] PCP - General Internal Medicine 10/18/22 Rajesh Mercer MD [address] [place] [address] PCP - ACO Reach 07/04/23 Leather Sprayer Relationship Specialty Start Date End Date Rajesh Mercer MD [address] [place] [address] PCP - General Internal Medicine 10/18/22 Rajesh Mercer MD [address] [place] [address] PCP - ACO Reach 07/04/23 Leather Sprayer Relationship Specialty Start Date End Date Rajesh Mercer MD [address] [place] [address] PCP - General Internal Medicine 10/18/22 Rajesh Mercer MD [address] [place] [address] PCP - ACO Reach 07/04/23 Leather Sprayer Relationship Specialty Start Date End Date Rajesh Mercer MD [address] [place] [address] PCP - General Internal Medicine 10/18/22 Rajesh Mercer MD [address] [place] [address] PCP - ACO Reach 07/04/23 Leather Sprayer Relationship Specialty Start Date End Date Rajesh Mercer MD [address] [place] [address] PCP - General Internal Medicine 10/18/22 Rajesh Mercer MD [address] [place] [address] PCP - ACO Reach 07/04/23 Leather Sprayer Relationship Specialty Start Date End Date Rajesh Mercer MD [address] [place] [address] PCP - General Internal Medicine 10/18/22 Rajesh Mercer MD [address] [place] [address] PCP - ACO Reach 07/04/23 Leather Sprayer Relationship Specialty Start Date End Date Rajesh Mercer MD [address] [place] [address] PCP - General Internal Medicine 10/18/22 Rajesh Mercer MD [address] [place] [address] PCP - ACO Reach 07/04/23 Leather Sprayer Relationship Specialty Start Date End Date Rajesh Mercer MD [address] [place] [address] PCP - General Internal Medicine 10/18/22 Rajesh Mercer MD [address] [place] [address] PCP - ACO Reach 07/04/23 Leather Sprayer Relationship Specialty Start Date End Date Rajesh Mercer MD [address] [place] [address] PCP - General Internal Medicine 10/18/22 Rajesh Mercer MD [address] [place] [address] PCP - ACO Reach 07/04/23 Leather Sprayer Relationship Specialty Start Date End Date Rajesh Mercer MD [address] [place] [address] PCP - General Internal Medicine 02/03/20 Leather Sprayer Relationship Specialty Start Date End Date Rajesh Mercer MD [address] [place] [address] PCP - General Internal Medicine 10/18/22 Rajesh Mercer MD [address] [place] [address] PCP - ACO Reach 07/04/23 Corry Rodriguez, RN [facility] 06/11/24 Leather Sprayer Relationship Specialty Start Date End Date Rajesh Mercer MD [address] [place] [address] PCP - General Internal Medicine 10/18/22 Rajesh Mercer MD [address] [place] [address] PCP - ACO Reach 07/04/23 Corry Rodriguez, RN [facility] 06/11/24 Leather Sprayer Relationship Specialty Start Date End Date Rajesh Mercer MD [address] [place] [address] PCP - General Internal Medicine 10/18/22 Rajesh Mercer MD [address] [place] [address] PCP - ACO Reach 07/04/23 Corry Rodriguez, VENANCIO [facility] 06/11/24 Leather Sprayer Relationship Specialty Start Date End Date Rajesh Mercer MD [address] [place] [address] PCP - General Internal Medicine 02/03/20 Leather Sprayer Relationship Specialty Start Date End Date Rajesh Mercer MD [address] [place] [address] PCP - General Internal Medicine 02/03/20 Leather Sprayer Relationship Specialty Start Date End Date Rajesh Mercer MD [address] [place] [address] PCP - General Internal Medicine 02/03/20 Leather Sprayer Relationship Specialty Start Date End Date Rajesh Mercer MD [address] [place] [address] PCP - General Internal Medicine 02/03/20 Leather Sprayer Relationship Specialty Start Date End Date Rajesh Mercer MD [address] [place] [address] PCP - General Internal Medicine 02/03/20 Leather Sprayer Relationship Specialty Start Date End Date Rajesh Mercer MD [address] [place] [address] PCP - General Internal Medicine 10/18/22 Rajesh Mercer MD [address] [place] [address] PCP - ACO Reach 07/04/23 Corry Rodriguez, [...] April 13, 2024 End: April 13, 2024 Leather Sprayer Relationship Specialty Start Date End Date Rajesh Mercer MD [address] [facility] [address] [place] [address] PCP - General Internal Medicine 10/18/22 Rajesh Mercer MD [address] [facility] [address] [place] [address] PCP - ACO Reach 07/04/23 Eve Marti LPN 07/28/24 Leather Sprayer Relationship Specialty Start Date End Date Rajesh Mercer MD [address] [facility] [address] [place] [address] PCP - General Internal Medicine 10/18/22 Rajesh Mercer MD [address] [facility] [address] [place] [address] PCP - ACO Reach 07/04/23 Eve Marti LPN 07/28/24 Leather Sprayer Relationship Specialty Start Date End Date Rajesh Mercer MD [address] [facility] [address] [place] [address] PCP - General Internal Medicine 10/18/22 Rajesh Mercer MD [address] [place] [address] PCP - ACO Reach 07/04/23 Eve Marti LPN 07/28/24 Leather Sprayer Relationship Specialty Start Date End Date Rajesh Mercer MD [address] [place] [address] PCP - General Internal Medicine 10/18/22 Rajesh Mercer MD [address] [place] [address] PCP - ACO Reach 07/04/23 Eve Marti [employer] 07/28/24 Leather Sprayer Relationship Specialty Start Date End Date Rajesh Mercer MD [address] [place] [address] PCP - General Internal Medicine 10/18/22 Rajesh Mercer MD [address] [place] [address] PCP - ACO Reach 07/04/23 Eve Marti [facility] 07/28/24 Leather Sprayer Relationship Specialty Start Date End Date Rajesh Mercer MD [address] [place] [address] PCP - General Internal Medicine 10/18/22 Rajesh Mercer MD [address] [place] [address] PCP - ACO Reach 07/04/23 Eve Marti [facility] 07/28/24 Goals (unrecognized section and content) Goals may be documented in a n alternate section Source Comments (unrecognize d section and content) In the event this informatio n is protected by the Federal Confidentiality of Alcohol and Drug Abuse Patient Records regulations: The Federal rules restrict any use of the information to criminally investigate or prosecute any alcohol or drug abuse patient.[facility] the event this information is protected by the Federal Confidentiality of Alcohol and Drug Abuse Patient Records regulations: The Federal rules restrict any use of the information to criminally investigate or prosecute any alcohol or drug abuse patient.[facility] the event this information is protected by the Federal Confidentiality of Alcohol and Drug Abuse Patient Records regulations: The Federal rules restrict any use of the information to criminally investigate or prosecute any alcohol or drug abuse patient.[facility] Center[facility] the event this information is protected by the Federal Confidentiality of Alcohol and Drug Abuse Patient Records regulations: The Federal rules restrict any use of the information to criminally investigate or prosecute any alcohol or drug abuse patient.[facility] Center[facility] the event this information is protected by the Federal Confidentiality of Alcohol and Drug Abuse Patient Records regulations: The Federal rules restrict any use of the information to criminally investigate or prosecute any alcohol or drug abuse patient.[facility] FOR RECORDS PERTAINING TO PATIENTS WHO ARE [...] BE BASED ON THE PRIMARY CLINICAL RECORDS. [facility] [employer] [facility]. provides no warranty or guarantee of the accuracy or completeness of information in this document.
[2024-10-19] MEDS: ACETAMINOPHEN 325 MG TABLET 650 MG PO ×2 (02:05→15:02)
[2024-10-19] MEDS: 0.9 % SODIUM CHLORIDE 1,000 ML 75 ML IV ×2 (02:05→13:49)
[2024-10-19 05:33] LABS: Basophils Absolute Auto 0.1 10^3/uL (0.0-0.1); Basophils Percent Auto 0.6 % (0.2-2.0); Eosinophils Absolute Auto 0.1 10^3/uL (0.0-0.7); Eosinophils Percent Auto 0.7 % (0.9-7.0); Hemoglobin 13.2 g/dL (12.0-16.0); Immature Granulocytes Abs Auto 0.09 10^3/uL (0.00-0.03); Immature Granulocytes Pct Auto 0.9 % (0.0-0.5); Lymphocytes Absolute Auto 0.7 10^3/uL (1.2-3.8); Lymphocytes Percent Auto 7.3 % (20.5-60.0); Mean Corpuscular Hemoglobin 29.5 pg (26.7-34.0); Mean Corpuscular Volume 89.5 fL (81.0-99.0); Mean Platelet Volume 9.7 fL (9.5-13.5); Monocytes Absolute Auto 0.6 10^3/uL (0.3-0.8); Neutrophils Absolute Auto 8.3 10^3/uL (1.4-6.5); Neutrophils Percent Auto 84.5 % (43.0-75.0); Platelet Count 241 10^3/uL (150-450); Red Blood Count 4.47 10^6/uL (4.20-5.40); White Blood Count 9.9 10^3/uL (4.0-11.0)
[2024-10-19 05:52] LABS: Alanine Aminotransferase 21 U/L (14-59); Albumin Globulin Ratio 0.7; Albumin Level 2.5 g/dL (3.4-5.0); Alkaline Phosphatase 67 U/L (46-116); Anion Gap 14.4; Aspartate Amino Transferase 13 U/L (15-37); BUN Creatinine Ratio 23.4; Bilirubin Total 0.4 mg/dL (0.2-1.0); Calcium 8.4 mg/dL (8.5-10.1); Carbon Dioxide 23.1 mmol/L (21.0-32.0); Chloride 106 mmol/L (98-107); Estimated GFR (African America >60 (>=60 mL/min/1.73m^2); Estimated GFR (Non-African Ame 58 (>=60 mL/min/1.73m^2); Globulin 3.5 g/dL; Glucose 193 mg/dL (74-106); Magnesium 1.7 mg/dL (1.8-2.4); Potassium 3.5 mmol/L (3.5-5.1); Sodium 140 mmol/L (136-145)
[2024-10-19 05:55] LABS: Lactate/Lactic Acid 1.9 mmol/L (0.4-2.0)
[2024-10-19] MEDS: ALLOPURINOL 100 MG TABLET PO (09:54)
[2024-10-19] MEDS: FUROSEMIDE 20 MG TABLET PO (09:54)
[2024-10-19] MEDS: APIXABAN 5 MG TABLET PO (09:54)
[2024-10-19] MEDS: PANTOPRAZOLE SODIUM 40 MG TABLET.DR 20 MG PO (09:54)
[2024-10-19] MEDS: TOPIRAMATE 25 MG TABLET 50 MG PO ×2 (09:54→20:32)
--- NOTE | 2024-10-19 10:44 | PM.IMHP1 ---
Internal Medicine - H&P: HPI History of Present Illness Chief complaint: Generalized weakness Narrative: Patient is a 74-year-old female with medical history of multiple comorbidities as listed below presented to the ER last evening via EMS from home due to generalized weakness and lethargy and decreased appetite. Patient thought that she is becoming septic as she has had sepsis in the past due to kidney stone that has been moving according to her. She was started feeling sick and recorded fever at home 101 with chills and decreased appetite with generalized weakness and fatigue, denies any nausea or vomiting, denies significant abdominal pain or flank pain, denies dysuria or frequency or urgency, denies chest pain or shortness of breath. She decided to present early to avoid complications of sepsis. Patient states that she has had kidney stones in the past and became septic from it, at some point she was sent to [facility] for evaluation of kidney stones and was seen by urology there but she reports that she has not had any Urology Interventions as her stones would pass on their own. She does report that she has been having some right-sided back pain and thought she may have been passing a kidney stone for the past few days. Here in the ER, patient noted to be febrile with 100.4 Fahrenheit, leukocytosis on admission 14.7 with left shift. lactic acidosis 2.9. Sepsis workup was initiated in the ER, patient received IV fluids, blood cultures collected, urine culture collected, patient received IV antibiotics. CT abdomen pelvis showed recently passed kidney stone in the bladder as well as stones in each kidney but no evidence of obstructive uropathy or ureteral stones. Decision was made to admit her for further evaluation and management. Patient was admitted overnight by the oncall nurse practitioner and initiated on medical regimen. I took over care this morning, I met with patient at bedside and evaluated here, obtained the above history. Patient reports feeling a bit better today. denies flank pain or abdominal pain. Denies nausea or vomiting. Afebrile today, hemodynamics appear to be more stable, still with decreased appetite, encouraged on oral intake. Remains on IV antibiotics and IV hydration/fluids. Review of Systems ROS Status of ROS 10 or more systems reviewed and unremarkable except as noted in history and below [facility] Medical History Enlarged uterus ?N85.2 - Hypertrophy of uterus (ICD-10) Liver lesion, right lobe ?K76.9 - Liver disease, unspecified (ICD-10) UTI (urinary tract infection) ?N39.0 - Urinary tract infection, site not specified (ICD-10) Sepsis ?A41.9 - Sepsis, unspecified organism (ICD-10) Weakness ?R53.1 - Weakness (ICD-10) GERD without esophagitis ?K21.9 - Gastro-esophageal reflux disease without esophagitis (ICD-10) Chronic a-fib ?I48.20 - Chronic atrial fibrillation, unspecified (ICD-10) Acute urinary retention ?R33.8 - Other retention of urine (ICD-10) SIRS (systemic inflammatory response syndrome) ?R65.10 - Systemic inflammatory response syndrome (SIRS) of non-infectious origin without acute organ dysfunction (ICD-10) Fever ?R50.9 - Fever, unspecified (ICD-10) Generalized weakness ?R53.1 - Weakness (ICD-10) Obesity ?E66.9 - Obesity, unspecified (ICD-10) Macular degeneration ?H35.30 - Unspecified macular degeneration (ICD-10) Occasional tremors ?R25.1 - Tremor, unspecified (ICD-10) Asthma ?J45.909 - Unspecified asthma, uncomplicated (ICD-10) HTN (hypertension) ?I10 - Essential (primary) hypertension (ICD-10) Blood clot in vein ?I82.90 - Acute embolism and thrombosis of unspecified vein (ICD-10) Kidney disease ?N28.9 - Disorder of kidney and ureter, unspecified (ICD-10) Diabetes ?E11.9 - Type 2 diabetes mellitus without complications (ICD-10) Surgical History History of cataract surgery ?Z98.49 - Cataract extraction status, unspecified eye (ICD-10) History of tonsillectomy ?Z90.89 - Acquired absence of other organs (ICD-10) History of knee replacement (Unknown) ?Z96.659 - Presence of unspecified artificial knee joint (ICD-10) Hx of cholecystectomy ?Z90.49 - Acquired absence of other specified parts of digestive tract (ICD-10) Family History Father Family history of CHF (congestive heart failure) Family history of cancer Family history of myocardial infarction Mother Family history of diabetes mellitus Family history of hypertension Family history of myocardial infarction Family history of stroke Social History Within the past year, how often did you have a drink containing alcohol: never Score interpretation: A score less than 3 is consistent with normal alcohol consumption. Smoking status: Former smoker Non-prescribed substance use: denies use Previous occupational history: retired Highest level of school completed/degree received: some college, no degree Are you now , , , , never or living with a partner: In a typical week, how many times do you talk on the telephone with family, friends, or neighbors: 3 or more times per week How often do you get together with friends or relatives: once per week How often do you attend evangelical or yazidism services: never Do you belong to any clubs or organizations such as evangelical groups unions, [employer] or athletic groups, or school groups: no Total score: 2 Score interpretation: A score of greater than or equal to 2 indicates the lowest level of social isolation. Little interest or pleasure in doing things: not at all Feeling down, depressed, or hopeless: not at all Feel stressed/tense/nervous/anxious/difficulty sleeping: not at all Do you think of yourself as: straight/heterosexual Gender Identity: female Meds Home Medications and Allergies Home Medications ?Medication ?Instructions ?Recorded ?Confirmed ?Type allopurinol 100 mg tablet 100 mg PO DAILY 05/31/24 10/19/24 History apixaban 5 mg tablet (Eliquis) 5 mg PO BID 05/31/24 06/30/24 History biotin 2,500 mcg capsule 2.5 mg PO DAILY 05/31/24 10/19/24 History fenofibrate nanocrystallized 145 145 mg PO QDAY 05/31/24 10/19/24 History mg tablet finerenone 20 mg tablet (Kerendia) 20 mg PO DAILY 05/31/24 10/19/24 History fluticasone furoate 200 1 inh inhalation DAILY 05/31/24 10/19/24 History mcg-vilanterol 25 mcg/dose inhalation powder (Breo Ellipta) furosemide 20 mg tablet 20 mg PO DAILY 05/31/24 10/19/24 History insulin aspart U-100 100 unit/mL 50 unit subcut Q12H 05/31/24 10/19/24 History (3 mL) subcutaneous pen (Novolog FlexPen U-100 Insulin aspart) insulin degludec 200 unit/mL (3 60 unit subcut Q12H 05/31/24 10/19/24 History mL) subcutaneous pen (Tresiba FlexTouch U-200 insulin) loperamide 2 mg capsule 2 mg PO Q6H PRN loose stool 05/31/24 10/19/24 History losartan 100 mg tablet 100 mg PO DAILY 05/31/24 06/30/24 History omeprazole 20 mg capsule,delayed 20 mg PO DAILY 05/31/24 10/19/24 History release semaglutide 1 mg/dose (4 mg/3 mL) 1 mg subcut .week 05/31/24 10/19/24 History subcutaneous pen injector (Ozempic) topiramate 50 mg tablet 50 mg PO Q12H 05/31/24 10/19/24 History tramadol 50 mg tablet 50 mg PO Q6H PRN pain 05/31/24 10/19/24 History verapamil 240 mg 24 hr 240 mg PO DAILY 05/31/24 06/30/24 History capsule,extended release vit C 250 mg-vit E 90 mg-zinc 40 1 tab PO BID 05/31/24 10/19/24 History mg-copper 1 yc-vsbkty-pvsags capsule (PreserVision AREDS-2) albuterol sulfate 2.5 mg/3 mL 2.5 mg inhalation Q4H PRN 06/30/24 10/19/24 History (0.083 %) solution for nebulization shortness of breath or wheezing Allergies Allergy/AdvReac Type Severity Reaction Status Date / Time doxycycline AdvReac Severe Nausea Verified 10/18/24 20:43 Exam Constitutional Vital Signs, click to edit/add: Last Vital Signs Temp 99.8 F 10/19/24 07:40 Pulse 82 10/19/24 07:40 Resp 20 10/19/24 07:40 BP 145/78 H 10/19/24 07:40 Pulse Ox 95 10/19/24 03:25 O2 Del Method Nasal Cannula 10/19/24 07:40 O2 Flow Rate 2 10/19/24 07:40 General appearance: cooperative [facility] Common normals: normocephalic Eye Common normals: PERRL and conjunctivae normal Chest Common normals: inspection of chest normal Respiratory Common normals: normal respiratory effort, no retractions and no use of accessory muscles Effort & inspection: able to speak in complete sentences Auscultation: diminished lung sounds Cardio Rate: regular rate Rhythm: regular rhythm Heart sounds: S1 normal and S2 normal GI Common normals: Normal to inspection, nondistended, normoactive bowel sounds present, soft to palpation and non-tender Extremity Common normals: normal to inspection, no calf tenderness and no pedal edema Neuro Common normals: oriented x3, CN's II-XII intact bilaterally, moves all extremities, no focal motor deficits and no sensory deficits noted Psych Appearance: grossly normal Attitude: calm and engaged Internal Medicine - H&P: Reslt Labs Labs: Short CBC 10/18/24 10/19/24 Range/Units 20:56 05:27 WBC 14.7 H 9.9 (4.0-11.0) 10^3/uL Hgb 14.0 13.2 (12.0-16.0) g/dL Hct 42.9 40.0 (36.0-48.0) % Plt Count 282 241 (150-450) 10^3/uL BMP 10/18/24 10/19/24 20:56 05:27 Sodium 137 140 Potassium 4.1 3.5 Chloride 103 106 Carbon Dioxide 21.4 23.1 BUN 26.0 H 22.0 H Creatinine 1.13 H 0.94 Glucose 340 H 193 H Calcium 9.0 8.4 L Liver Function 10/18/24 10/19/24 Range/Units 20:56 05:27 Total Bilirubin 0.5 0.4 (0.2-1.0) mg/dL AST 15 13 L (15-37) U/L ALT 23 21 (14-59) U/L Alkaline Phosphatase 84 67 (46-116) U/L Albumin 2.9 L 2.5 L (3.4-5.0) g/dL Urine 10/18/24 Range/Units 22:17 Urine Color Lt. yellow (YELLOW) Urine Clarity Clear (CLEAR) Urine pH 6.0 (5.0-9.0) Ur Specific [place] 1.010 (1.005-1.025) Urine Protein Negative (NEG/TRACE) mg/dL Urine Glucose (UA) >=1000 A (NEGATIVE) mg/dL Assessment and Plan Assessment and Plan (1) Kidney stones: (2) Bilateral nephrolithiasis: (3) Leukocytosis: (4) Fever: Plan Suspected early severe sepsis secondary to UTI/bilateral nephrolithiasis Lactic acidosis Hx of nephrolithiasis and sepsis in the past CKD stage 3 -Febrile with leukocytosis on admission. Today remained afebrile, WBC has normalized. -UA noninfectious but could be due to early presentation -Pending urine and blood cultures -CT AP showed Nonobstructing renal stones are noted bilaterally measuring up to 1 cm in greatest dimension on the left and 3 mm in greatest dimension on the right. No hydronephrosis. -Continue adequate IV fluids as directed -Continue to maintain IV antibiotics -Add mag IV supplements -Monitor for fever/WBC trend Chronic conditions -DM with hyperglycemia: resume home insulin regimen. Glucose better controlled today -HTN: resume home meds -Asthma: resume home inhalers -GERD: PPI -Migraine: resume home meds -Afib: resume Eliquis for AC. DVT ppx: Eliquis Diet: as directed Discussed with patient at bedside, All questions answered. She is in agreement with above plan.
[2024-10-19] MEDS: ALBUTEROL SULFATE 2.5 MG/3 ML VIAL NEB IH ×3 (11:23→20:04)
[2024-10-19] MEDS: BUDESONIDE 0.5 MG/2 ML AMPULE NEB IH ×2 (11:24→20:04)
--- NOTE | 2024-10-19 11:41 | CM.NOTE ---
Rounds made with Dr. Ricardo, no discharge today. Continue IV fluids and monitoring. Pt will change to inpatient status, see physician note.
[2024-10-19] MEDS: INSULIN ASPART 300 UNIT/3 ML PEN 50 UNIT SUBQ (13:49)
--- NOTE | 2024-10-19 15:30 | CM.NOTE ---
Important Message From Medicare discussed with pt, pt verbalizes understanding and signs paper. Original given to pt and copy placed on pt's chart.
--- NOTE | 2024-10-19 15:46 | DIETREC ---
Recommend change diet to 1800 kcal CCD.
[2024-10-19 20:32] LABS: Glucometer 166 mg/dL (74-106)
--- NOTE | 2024-10-19 22:08 | PC.NURSE ---
Pt requested to be unhooked from her IV for awhile so she could rest. She stated the pump is loud and the fluids go right through her . Educated pt on why the fluids are important. SCREWDOWN OPERATOR notified and said okay to turn off fluids while she sleeps but to resume when pt wakes up. Pt informed of this plan and thankful to hopefully get some sleep.
[2024-10-20] VITALS (8 sets, daily range): BP systolic 146–160; BP diastolic 56–86; PULSE 76–79; TEMP 36.7–37.2; O2SAT 92–96
[2024-10-20] MEDS: ACETAMINOPHEN 325 MG TABLET 650 MG PO ×3 (01:21→21:40)
[2024-10-20 05:12] LABS: Basophils Absolute Auto 0.1 10^3/uL (0.0-0.1); Basophils Percent Auto 0.7 % (0.2-2.0); Eosinophils Absolute Auto 0.2 10^3/uL (0.0-0.7); Eosinophils Percent Auto 2.7 % (0.9-7.0); Hematocrit 37.4 % (36.0-48.0); Hemoglobin 12.2 g/dL (12.0-16.0); Immature Granulocytes Abs Auto 0.05 10^3/uL (0.00-0.03); Immature Granulocytes Pct Auto 0.6 % (0.0-0.5); Lymphocytes Absolute Auto 1.2 10^3/uL (1.2-3.8); Lymphocytes Percent Auto 14.5 % (20.5-60.0); Mean Corpuscular HGB Conc 32.6 g/dL (29.9-35.2); Mean Corpuscular Hemoglobin 29.1 pg (26.7-34.0); Mean Corpuscular Volume 89.3 fL (81.0-99.0); Mean Platelet Volume 10.2 fL (9.5-13.5); Monocytes Absolute Auto 0.8 10^3/uL (0.3-0.8); Monocytes Percent Auto 9.7 % (1.7-12.0); Neutrophils Absolute Auto 5.8 10^3/uL (1.4-6.5); Neutrophils Percent Auto 71.8 % (43.0-75.0); Platelet Count 236 10^3/uL (150-450); Red Blood Count 4.19 10^6/uL (4.20-5.40); Red Cell Distribution Width 14.3 % (11.0-15.0); White Blood Count 8.1 10^3/uL (4.0-11.0)
[2024-10-20 06:02] LABS: Anion Gap 15.1; BUN Creatinine Ratio 18.6; Calcium 8.7 mg/dL (8.5-10.1); Carbon Dioxide 23.4 mmol/L (21.0-32.0); Chloride 104 mmol/L (98-107); Estimated GFR (African America 57 (>=60 mL/min/1.73m^2); Estimated GFR (Non-African Ame 47 (>=60 mL/min/1.73m^2); Glucose 231 mg/dL (74-106); Potassium 3.5 mmol/L (3.5-5.1); Sodium 139 mmol/L (136-145)
[2024-10-20] MEDS: FUROSEMIDE 20 MG TABLET PO (08:45)
[2024-10-20] MEDS: ALLOPURINOL 100 MG TABLET PO (08:45)
[2024-10-20] MEDS: APIXABAN 5 MG TABLET PO ×2 (08:45→21:40)
[2024-10-20] MEDS: TOPIRAMATE 25 MG TABLET 50 MG PO ×2 (08:45→21:40)
[2024-10-20] MEDS: INSULIN GLARGINE 300 UNIT/3 ML INSULN.PEN 60 UNIT SQ ×2 (08:46→21:42)
[2024-10-20] MEDS: INSULIN ASPART 300 UNIT/3 ML PEN 50 UNIT SUBQ ×2 (08:48→21:43)
--- NOTE | 2024-10-20 10:00 | CM.NOTE ---
Rounds made with Dr. Le, discussed with pt diagnosis and lab results. Pt will not discharge today, possible discharge to home tomorrow.
--- NOTE | 2024-10-20 12:19 | PM.IMPN1 ---
Progress Note: A&P Assessment and Plan (1) Kidney stones: (2) Bilateral nephrolithiasis: (3) Leukocytosis: (4) Fever: (5) Severe sepsis: Plan Suspected early severe sepsis secondary to UTI/bilateral nephrolithiasis Lactic acidosis Hx of nephrolithiasis and sepsis in the past CKD stage 3 -Febrile with leukocytosis on admission. Today remained afebrile, WBC has normalized. -UA noninfectious but could be due to early presentation -Pending urine and blood cultures -CT AP showed Nonobstructing renal stones are noted bilaterally measuring up to 1 cm in greatest dimension on the left and 3 mm in greatest dimension on the right. No hydronephrosis. -Continue adequate IV fluids as directed -Continue to maintain IV antibiotics -Add mag IV supplements -Monitor for fever/WBC trend Chronic conditions -DM with hyperglycemia: resume home insulin regimen. Glucose better controlled today -HTN: resume home meds -Asthma: resume home inhalers -GERD: PPI -Migraine: resume home meds -Afib: resume Eliquis for AC. DVT ppx: Eliquis Diet: as directed 10/20/2024 patient remains on ceftriaxone 1 g every 24 hours with no fever or leukocytosis today. She reports ports improvement in symptoms however the concern is for bacteremia given her complicated UTI as well as kidney stones history. Explained to her that we need to keep her at least for another day or 2 until we get at least 2 days of blood cultures negative and then we can discharge her after that. She will remain on IV antibiotic and then may discharge her even on that. She understands agrees with this plan of management. I answered all her question and addressed her concerns. Internal Medicine - PN: Subj Subjective Interval history: Patient seen and examined at bedside. No events overnight. No nausea no vomiting today. No abdominal pain. She told me that she was on Keflex which she was taking prophylactically however she was stopped medication around 5 to 6 days prior to admission. She is feeling better she was requesting to go home today. However explained to her that her lactic acidosis and leukocytosis made her meet severe sepsis on admission.. She is making urine. She denies any dysuria or hematuria or straining on urination. Exam Narrative Exam Narrative: General appearance: cooperative, pleasant and sitting up in chair. Not in acute distress HENMS Common normals: normocephalic Eye Common normals: PERRL and conjunctivae normal Chest Common normals: inspection of chest normal Respiratory Common normals: normal respiratory effort, no retractions and no use of accessory muscles Effort & inspection: able to speak in complete sentences Auscultation: diminished lung sounds Cardio Rate: regular rate Rhythm: regular rhythm Heart sounds: S1 normal and S2 normal GI Common normals: Normal to inspection, nondistended, normoactive bowel sounds present, soft to palpation and non-tender, negative CVA tenderness on both side Extremity Common normals: normal to inspection, no calf tenderness and no pedal edema Neuro Common normals: oriented x3, CN's II-XII intact bilaterally, moves all extremities, no focal motor deficits and no sensory deficits noted Constitutional Vital Signs, click to edit/add: Last Vital Signs Temp 98.0 F 10/20/24 11:41 Pulse 79 10/20/24 11:41 Resp 18 10/20/24 11:41 BP 146/86 H 10/20/24 11:41 Pulse Ox 94 L 10/20/24 11:41 O2 Del Method Room Air 10/20/24 11:41 O2 Flow Rate 2 10/19/24 15:27 Internal Medicine - PN: Obj Da Labs Labs: Laboratory Results - last 24 hr 10/19/24 10/20/24 20:30 04:44 WBC 8.1 RBC 4.19 L Hgb 12.2 Hct 37.4 MCV 89.3 MCH 29.1 MCHC 32.6 RDW 14.3 Plt Count 236 MPV 10.2 Neut % (Auto) 71.8 Lymph % (Auto) 14.5 L Mcdowell % (Auto) 9.7 Eos % (Auto) 2.7 Baso % (Auto) 0.7 Neut # (Auto) 5.8 Lymph # (Auto) 1.2 Mcdowell # (Auto) 0.8 Eos # (Auto) 0.2 Baso # (Auto) 0.1 Abs Immat Gran (auto) 0.05 H Imm/Tot Granulo (auto) 0.6 H Sodium 139 Potassium 3.5 Chloride 104 Carbon Dioxide 23.4 Anion Gap 15.1 BUN 21.0 H Creatinine 1.13 H Est GFR ( Amer) 57 L Est GFR (Non-Af Amer) 47 L BUN/Creatinine Ratio 18.6 Glucose 231 H Calcium 8.7 POC Glucose 166 H
[2024-10-20] MEDS: CEFTRIAXONE 1,000 MG in 0.9 % SODIUM CHLORIDE 50 ML 100 MG IV (22:34)
[2024-10-21 03:21] VITALS: BP 157/76; PULSE 74; TEMP 36.6; O2SAT 92
[2024-10-21 04:55] VITALS: O2SAT 91
[2024-10-21] MEDS: PANTOPRAZOLE SODIUM 40 MG TABLET.DR 20 MG PO (05:47)
[2024-10-21] MEDS: ACETAMINOPHEN 325 MG TABLET 650 MG PO (05:50)
[2024-10-21 05:53] LABS: Basophils Absolute Auto 0.1 10^3/uL (0.0-0.1); Basophils Percent Auto 1.1 % (0.2-2.0); Eosinophils Absolute Auto 0.3 10^3/uL (0.0-0.7); Hematocrit 39.2 % (36.0-48.0); Hemoglobin 12.9 g/dL (12.0-16.0); Immature Granulocytes Abs Auto 0.05 10^3/uL (0.00-0.03); Immature Granulocytes Pct Auto 0.8 % (0.0-0.5); Lymphocytes Absolute Auto 1.6 10^3/uL (1.2-3.8); Lymphocytes Percent Auto 25.2 % (20.5-60.0); Mean Corpuscular HGB Conc 32.9 g/dL (29.9-35.2); Mean Corpuscular Hemoglobin 29.2 pg (26.7-34.0); Mean Corpuscular Volume 88.7 fL (81.0-99.0); Mean Platelet Volume 9.8 fL (9.5-13.5); Monocytes Absolute Auto 0.8 10^3/uL (0.3-0.8); Monocytes Percent Auto 12.1 % (1.7-12.0); Neutrophils Absolute Auto 3.6 10^3/uL (1.4-6.5); Neutrophils Percent Auto 55.8 % (43.0-75.0); Platelet Count 248 10^3/uL (150-450); Red Blood Count 4.42 10^6/uL (4.20-5.40); White Blood Count 6.5 10^3/uL (4.0-11.0)
[2024-10-21 06:23] LABS: Alanine Aminotransferase 24 U/L (14-59); Albumin Globulin Ratio 0.7; Albumin Level 2.6 g/dL (3.4-5.0); Alkaline Phosphatase 62 U/L (46-116); Anion Gap 13.7; Aspartate Amino Transferase 18 U/L (15-37); BUN Creatinine Ratio 24.4; Bilirubin Total 0.3 mg/dL (0.2-1.0); Calcium 8.9 mg/dL (8.5-10.1); Carbon Dioxide 24.7 mmol/L (21.0-32.0); Chloride 105 mmol/L (98-107); Estimated GFR (African America >60 (>=60 mL/min/1.73m^2); Estimated GFR (Non-African Ame >60 (>=60 mL/min/1.73m^2); Globulin 3.6 g/dL; Glucose 146 mg/dL (74-106); Magnesium 1.9 mg/dL (1.8-2.4); Potassium 3.4 mmol/L (3.5-5.1); Sodium 140 mmol/L (136-145); Total Protein 6.2 g/dL (6.4-8.2)
[2024-10-21 08:32] VITALS: BP 150/78; PULSE 69; TEMP 36.7; O2SAT 95
[2024-10-21] MEDS: TOPIRAMATE 25 MG TABLET 50 MG PO (08:42)
[2024-10-21] MEDS: APIXABAN 5 MG TABLET PO (08:42)
[2024-10-21] MEDS: ALLOPURINOL 100 MG TABLET PO (08:42)
[2024-10-21] MEDS: FUROSEMIDE 20 MG TABLET PO (08:42)
--- NOTE | 2024-10-21 09:30 | CM.NOTE ---
Rounds made with Dr. Chaney, pt will discharge to home today. Pt will need to f/u with [facility] urologist (pt has seen them in the past) and PCP. Appointments will be scheduled by Med Surg billing rep prior to discharge. Pt also states her home BIPAP machine stopped working after power outage. Called respiratory therapy to look at pt's machine prior to discharge. Pt will discharge on oral antibiotics.
--- NOTE | 2024-10-21 10:02 | P.DS_ITS ---
DS: Providers Provider Date of admission: 10/19/24 12:12 Primary care physician: IVETH OH Anticipated date of discharge: 10/21/24 DS: Diagnosis Discharge Diagnosis (1) Kidney stones: (2) Bilateral nephrolithiasis: (3) Leukocytosis: (4) Fever: (5) Severe sepsis: Plan As above DS: Summary Hospital Course Hospital Course: Patient is a 74-year-old female with medical history of multiple comorbidities as listed below presented to the ER last evening via EMS from home due to generalized weakness and lethargy and decreased appetite. Patient thought that she is becoming septic as she has had sepsis in the past due to kidney stone that has been moving according to her. She was started feeling sick and recorded fever at home 101 with chills and decreased appetite with generalized weakness and fatigue, denies any nausea or vomiting, denies significant abdominal pain or flank pain, denies dysuria or frequency or urgency, denies chest pain or shortness of breath. She decided to present early to avoid complications of sepsis. Patient states that she has had kidney stones in the past and became septic from it, at some point she was sent to [facility] for evaluation of kidney stones and was seen by urology there but she reports that she has not had any Urology Interventions as her stones would pass on their own. She does report that she has been having some right-sided back pain and thought she may have been passing a kidney stone for the past few days. Here in the ER, patient noted to be febrile with 100.4 Fahrenheit, leukocytosis on admission 14.7 with left shift. lactic acidosis 2.9. Sepsis workup was initiated in the ER, patient received IV fluids, blood cultures collected, urine culture collected, patient received IV antibiotics. CT abdomen pelvis showed recently passed kidney stone in the bladder as well as stones in each kidney but no evidence of obstructive uropathy or ureteral stones. Decision was made to admit her for further evaluation and management. Patient was admitted overnight by the oncall nurse practitioner and initiated on medical regimen. I took over care this morning, I met with patient at bedside and evaluated here, obtained the above history. Patient reports feeling a bit better today. denies flank pain or abdominal pain. Denies nausea or vomiting. Afebrile today, hemodynamics appear to be more stable, still with decreased appetite, encouraged on oral intake. Remains on IV antibiotics and IV hydration/fluids. [facility] and [facility]. Thought was he may have suspected early severe subsecond UTI/bilateral nephrolithiasis. UA was negative, blood cultures after 48 hours were negative. Patient has no fever no chills no leukocytosis. Patient was insisting going home. We will schedule her an appointment with urology I will send her on Augmentin p.o. [phone] twice daily, she will follow-up with urology as soon as possible in regards to her kidney stones as this is the cause of her readmissions. We will call her back if the blood cultures grow an organism however she has been afebrile and very stable on ceftriaxone with negative blood culture and urine cultures today.. She showed good response with the ceftriaxone. I discussed the plan with her in details. Answered all questions. She is in agreement with the plan. She was appreciative of our efforts. Status at Discharge Overall status at discharge: patient is back to baseline Time Spent with Patient Time attestation: Total time spent providing and/or coordinating discharge services: Exam Narrative Exam Narrative: General appearance: cooperative, pleasant and sitting up in chair. Not in acute distress HENVA Common normals: normocephalic Eye Common normals: PERRL and conjunctivae normal Chest Common normals: inspection of chest normal Respiratory Common normals: normal respiratory effort, no retractions and no use of accessory muscles Effort & inspection: able to speak in complete sentences Auscultation: diminished lung sounds Cardio Rate: regular rate Rhythm: regular rhythm Heart sounds: S1 normal and S2 normal GI Common normals: Normal to inspection, nondistended, normoactive bowel sounds present, soft to palpation and non-tender, negative CVA tenderness on either side Extremity Common normals: normal to inspection, no calf tenderness and no pedal edema Neuro Common normals: oriented x3, CN's II-XII intact bilaterally, moves all extremities, no focal motor deficits and no sensory deficits noted Constitutional Vital Signs, click to edit/add: Last Vital Signs Temp 98.0 F 10/21/24 08:32 Pulse 69 10/21/24 08:32 Resp 16 10/21/24 08:32 BP 150/78 H 10/21/24 08:32 Pulse Ox 95 10/21/24 08:32 O2 Del Method Room Air 10/21/24 08:32 O2 Flow Rate 2 10/19/24 15:27 DS: Data Data Completed and Pending Labs on day of discharge: Labs from last 24 hours 10/21/24 05:33 WBC 6.5 RBC 4.42 Hgb 12.9 Hct 39.2 MCV 88.7 MCH 29.2 MCHC 32.9 RDW 14.0 Plt Count 248 MPV 9.8 Neut % (Auto) 55.8 Lymph % (Auto) 25.2 Rankin % (Auto) 12.1 H Eos % (Auto) 5.0 Baso % (Auto) 1.1 Neut # (Auto) 3.6 Lymph # (Auto) 1.6 Rankin # (Auto) 0.8 Eos # (Auto) 0.3 Baso # (Auto) 0.1 Abs Immat Gran (auto) 0.05 H Imm/Tot Granulo (auto) 0.8 H Sodium 140 Potassium 3.4 L Chloride 105 Carbon Dioxide 24.7 Anion Gap 13.7 BUN 21.0 H Creatinine 0.86 Est GFR ( Amer) >60 Est GFR (Non-Af Amer) >60 BUN/Creatinine Ratio 24.4 Glucose 146 H Calcium 8.9 Magnesium 1.9 Total Bilirubin 0.3 AST 18 ALT 24 Alkaline Phosphatase 62 Total Protein 6.2 L Albumin 2.6 L Globulin 3.6 Albumin/Globulin Ratio 0.7 Preliminary micro results at discharge 10/18/24 20:56 Blood Culture Result 2 - Preliminary Blood - Right Antecubital NO GROWTH AT 36-48 HOURS. FINAL TO FOLLOW. 10/18/24 20:56 Blood Culture Result 1 - Preliminary Blood - Right Hand NO GROWTH AT 36-48 HOURS. FINAL TO FOLLOW. Discharge Plan Discharge Disposition: Home, Self-Care Condition: Good Discharge Medications: New insulin glargine [Lantus Solostar U-100 Insulin] 100 unit/mL (3 mL) Insulin Pen 60 unit subcut BID Qty: 15 0RF Continued allopurinol 100 mg tablet 100 mg PO DAILY Kerendia 20 mg tablet 20 mg PO DAILY omeprazole 20 mg capsule,delayed release(DR/EC) 20 mg PO DAILY topiramate 50 mg tablet 50 mg PO Q12H tramadol 50 mg tablet 50 mg PO Q6H PRN (Reason: pain) Eliquis 5 mg tablet 5 mg PO BID insulin aspart U-100 [Novolog FlexPen U-100 Insulin] 100 unit/mL (3 mL) insuli n pen 50 unit SUBCUT Q12H fenofibrate nanocrystallized 145 mg tablet 145 mg PO QDAY furosemide 20 mg tablet 20 mg PO DAILY PreserVision AREDS-2 250-90-40-1 mg capsule 1 tab PO BID fluticasone furoate-vilanterol [Breo Ellipta] 200-25 mcg/dose blister with device 1 inh inhalation DAILY Ozempic 1 mg/dose (4 mg/3 mL) pen injector 1 mg SUBCUT .week albuterol sulfate 2.5 mg /3 mL (0.083 %) solution for nebulization 2.5 mg inhalation Q4H PRN (Reason: shortness of breath or wheezing) Changed losartan 100 mg tablet 50 mg PO DAILY Qty: 0 0RF Discontinued insulin degludec [Tresiba FlexTouch U-200] 200 unit/mL (3 mL) insulin pen 60 unit SUBCUT Q12H loperamide 2 mg capsule 2 mg PO Q6H PRN (Reason: loose stool) biotin 2,500 mcg capsule 2.5 mg PO DAILY No Action verapamil 240 mg capsule,ext rel. pellets 24 hr 240 mg PO DAILY Print Language: Upper Sorbian Forms: Portal Instructions
[2024-10-21] MEDS: POTASSIUM CHLORIDE 10 MEQ ER TABLET 20 MEQ PO (10:23)
[2024-10-21] MEDS: CEFTRIAXONE 1,000 MG in 0.9 % SODIUM CHLORIDE 50 ML 100 MG IV (11:44)
--- NOTE | 2024-10-25 14:05 | CM.DCFOLLOWU ---
Person spoke with: Daniela How are you feeling? Much better How is your pain? No pain Did you understand your discharge instructions? Yes Do you have any questions about your discharge instructions? No questions Were you given any prescriptions at discharge? Yes Were you able to get your prescriptions filled? Yes Do you understand how to take your medications as ordered? Yes Do you have any questions about your follow up appointment and do you plan to keep your follow up appointment? I called to schedule urology appt awaiting a call back. Appt scheduled with PCP and plan on going Is there anything else that you would like to discuss? No Questions/Comments/Concerns/Other:
== END 2024-10-21 13:45 | disposition home or self-care (01) | DRG 872 ==
LOC: ER 10-19 00:39 → MS 10-19 01:37
PROVIDERS: Registered Nurse; Admitting Provider Internal Medicine; Emergency Provider Emergency Medicine; PCP Internal Medicine; Visit Provider Student in an Organized Health Care Education/Training Program
DX: A41.9 Sepsis, unspecified organism (principal); I48.20 Chronic atrial fibrillation, unspecified; Z68.42 Body mass index [BMI] 45.0-49.9, adult; N20.0 Calculus of kidney; R65.20 Severe sepsis without septic shock; E11.65 Type 2 diabetes mellitus with hyperglycemia; E11.22 Type 2 diabetes mellitus with diabetic chronic kidney disease; I12.9 Hypertensive chronic kidney disease with stage 1 through stage 4 chronic kidney disease, or unspecified chronic kidney disease; N18.30 Chronic kidney disease, stage 3 unspecified; J45.909 Unspecified asthma, uncomplicated; K21.9 Gastro-esophageal reflux disease without esophagitis; Z90.49 Acquired absence of other specified parts of digestive tract; Z79.4 Long term (current) use of insulin; Z79.85 Long-term (current) use of injectable non-insulin antidiabetic drugs; Z87.442 Personal history of urinary calculi; Z87.440 Personal history of urinary (tract) infections; Z79.899 Other long term (current) drug therapy; Z87.891 Personal history of nicotine dependence; Z96.659 Presence of unspecified artificial knee joint; R50.9 Fever, unspecified; Z79.01 Long term (current) use of anticoagulants; E66.9 Obesity, unspecified
CPT/HCPCS: 36415; 71045; 74176; 80048; 80053; 81001; 82948; 83605; 83735; 85007; 85025; 85027; 86140; 87040; 93005; 94640; 94761; 96365; 99285; J0696